=== PATIENT | female | born 1965 | race Caucasian/White ===

== ENCOUNTER 2021-07-15 12:57 | Inpatient (IN) | payer MEDICARE, MEDICAID, SELFPAY ==
[2021-07-15] VITALS (19 sets, daily range): BP systolic 60–194; BP diastolic 27–69; PULSE 66–95; RESP 12–20; TEMP 36.9–37.1; O2SAT 91–97; BMI 32.8
--- NOTE | ~2021-07-15 | CT_ITS ---
EXAMINATION: CT HEAD WITHOUT CONTRAST CLINICAL INFORMATION: Altered mental status COMPARISON: CT head 05/17/2019, 01/08/2019 TECHNIQUE: Contiguous axial imaging was performed from the skull base to vertex without intravenous administration of contrast. This CT examination was performed using dose optimization techniques as appropriate, variously including the following: *Automated exposure control *Adjustment of mA and/or kV according to patient size (this includes techniques or standardized protocols for targeted exams where dose is matched to indication/reason for exam; i.e. extremities or head) *Use of iterative reconstruction technique DLP: 1039 mGy-cm FINDINGS: There is no evidence of acute intracranial hemorrhage or territorial infarction. No abnormal mass effect or midline shift is seen. [place] to white matter differentiation is well preserved. No extra-axial fluid collections are identified. The ventricles are normal in size. There is no abnormal attenuation within the brain parenchyma. The osseous structures and soft tissues are normal. The mastoid air cells and visualized portions of the paranasal sinuses are well aerated. Cerumen is noted in the left external auditory canal. CT/CT head/brain wo con IMPRESSION: No acute intracranial pathology.
--- NOTE | ~2021-07-15 | CT_ITS ---
EXAMINATION: CT abdomen pelvis wo con CLINICAL INFORMATION: Reason for Exam ? prerenal. elevated cr COMPARISON: Multiple prior CTs most recent May 2019 TECHNIQUE: Multidetector volumetric imaging was performed from the superior aspect of the liver through the pubic symphysis , noncontrasted study. Sagittal and coronal reformatted images were obtained on the technologist's workstation. This CT examination was performed using dose optimization techniques as appropriate, variously including the following: *Automated exposure control *Adjustment of mA and/or kV according to patient size (this includes techniques or standardized protocols for targeted exams where dose is matched to indication/reason for exam; i.e. extremities or head) *Use of iterative reconstruction technique DLP: 882 mGy-cm FINDINGS: LOWER THORAX: Included lung bases are clear. HEPATOBILIARY: Evaluation of the liver is limited on noncontrasted study. No gross abnormalities, the liver is homogeneous. GALLBLADDER: Gallbladder is distended, no calcified stones. SPLEEN: Spleen is normal in size. PANCREAS: No focal mass or ductal dilatation. STOMACH AND GASTROINTESTINAL TRACT: Stomach is grossly unremarkable. There is no bowel distention or thickening. Surgical clips adjacent to the cecum probably from prior appendectomy. Appendix not visualized. ADRENALS: No adrenal nodules. KIDNEYS/URETERS: There is a cortical defect likely scar middle pole right kidney probably from prior partial nephrectomy or renal injury. No kidney stone or hydronephrosis. Left kidney is unremarkable. URINARY BLADDER: Ashford catheter in the urinary bladder. Irregular bladder is decompressed unopacified. PELVIC VISCERA: Unremarkable PERITONEUM: No free air or fluid. LYMPH NODES: No lymphadenopathy. VASCULAR:Mild vascular calcifications. No aneurysm. BONES, ABDOMINAL WALL AND SOFT TISSUES: Hardware posterior fusion of the lower lumbar spine in place are intact. CT/CT abdomen pelvis wo con IMPRESSION: *No CT evidence of acute intra-abdominal process to explain patient's symptoms. *Appendix not visualized, surgical clips adjacent to the cecum probably from prior appendectomy. *The urinary bladder is decompressed, Ashford catheter in place. *Hardware posterior fusion of the lumbar spine and partial compression fracture superior endplate L3 chronic stable. *Cortical defect probably a scar middle pole right kidney prior renal injury
--- NOTE | ~2021-07-15 | XR_ITS ---
EXAMINATION: XR CHEST CLINICAL INFORMATION: Fever COMPARISON: Chest x-ray on 07/15/2021 TECHNIQUE: Frontal view of the chest was obtained. FINDINGS: Patchy opacities in the lingula. The cardiomediastinal silhouette is stable. No pleural effusions. No pneumothoraces. XR/XR chest 1V IMPRESSION: Patchy opacities in the lingula may represent pneumonia in appropriate clinical setting.
--- NOTE | ~2021-07-15 | XR_ITS ---
EXAMINATION: XR CHEST CLINICAL INFORMATION: Chest pain COMPARISON: 05/17/2019 TECHNIQUE: Frontal view of the chest was obtained. FINDINGS: Lungs are well-inflated and clear. Trachea is midline in position. No interstitial disease, consolidation or mass. No pleural effusion or pneumothorax. Cardiac silhouette and pulmonary vessels are normal in size. The mediastinum and saige have normal contour. The visualized bones and upper abdomen are unremarkable. XR/XR chest 1V IMPRESSION: No acute cardiopulmonary abnormality.
--- NOTE | ~2021-07-15 | XR_ITS ---
EXAMINATION: XR CHEST CLINICAL INFORMATION: Fluid overload COMPARISON: 07/15/2021 TECHNIQUE: Frontal view of the chest was obtained. FINDINGS: No significant abnormality is noted involving the heart, lungs, mediastinum, bony thorax or soft tissues. XR/XR chest 1V IMPRESSION: Unremarkable examination.
--- NOTE | 2021-07-15 13:30 | ECG_ITS ---
Test Reason : AMS Blood Pressure : / mmHG Vent. Rate : 066 BPM Atrial Rate : 066 BPM P-R Int : 168 ms QRS Dur : 084 ms QT Int : 420 ms P-R-T Axes : 036 014 043 degrees QTc Int : 440 ms Normal sinus rhythm Anterior infarct , age undetermined Abnormal ECG When compared with ECG of 18-MAY-2019 04:09, Anterior infarct is now Present T wave inversion no longer evident in Inferior leads Referred By: Mia Umanzor Electronically Signed By:Jeffrey Harrington
[2021-07-15 13:44] LABS: MANUAL DIFF FLAG NO
[2021-07-15 13:46] LABS: Basophils Absolute Auto 0.1 X10*3/uL (0.0-0.2); Basophils Percent Auto 0.7 % (0-2); Eosinophils Percent Auto 0.3 % (0-4); Hematocrit 38.2 % (37.0-47.0); Hemoglobin 13.3 g/dl (12.0-16.0); Imm Gran Abs Auto 0.06 X10*3/uL (0.00-0.03); Imm Gran Pct Auto 0.5 % (0.0-0.4); Lymphocytes Percent Auto 22.9 % (20-40); Mean Corpuscular HGB Conc 34.8 g/dl (31.0-35.0); Mean Corpuscular Hemoglobin 29.3 pg (27.0-33.0); Mean Corpuscular Volume 84.1 fL (80.0-98.0); Mean Platelet Volume 11.5 fL (9.4-12.3); Monocytes Absolute Auto 0.5 X10*3/uL (0.1-1.2); Monocytes Percent Auto 4.1 % (2-11); Neutrophils Absolute Auto 9.3 x10*3/uL (2.0-8.3); Neutrophils Percent Auto 71.5 % (45-73); Platelet Count 272 X10*3/uL (160-400); Red Blood Count 4.54 X10*6/uL (4.20-5.50); Red Cell Distribution Width 14.6 % (11.0-16.0); White Blood Count 12.9 X10*3/uL (4.8-10.8)
[2021-07-15] MEDS: 0.9 % Sodium Chloride 1,000 ML 999 ML IV ×3 (13:48→17:03)
[2021-07-15 14:06] LABS: Lactic Acid 3.1 mmol/L (0.5-2.0)
[2021-07-15 14:09] LABS: Troponin-I High Sensitivity < 3.5 ng/L (<3.5-17.0)
[2021-07-15 14:13] LABS: Acetaminophen LAB < 1 mcg/mL (<30); Alanine Aminotransferase 13 U/L (0-31); Albumin Level 3.6 g/dL (3.5-5.0); Alkaline Phosphatase 117 U/L (39-117); Anion Gap 20 (12-20); Aspartate Amino Transferase 13 U/L (5-31); Bilirubin Direct 0.2 mg/dL (0.0-0.5); Bilirubin Total 0.3 mg/dL (0.0-1.0); Blood Urea Nitrogen 44 mg/dL (9-16); Calcium 9.5 mg/dL (8.4-10.2); Carbon Dioxide 22 mmol/L (22-29); Chloride 93 mmol/L (96-108); Creatinine Clr Calc Pharmacy 26.6; Estimated Glomerular Filt Rate 19; Glucose Random 341 mg/dL (60-115); Lipase 46 U/L (8-78); Salicylate < 5.0 mg/dL (15-30); Sodium 130 mmol/L (135-145); Total Protein 6.6 g/dL (6.5-8.0)
[2021-07-15 14:22] LABS: Lithium 0.24 mmol/L (0.60-1.20)
[2021-07-15 14:22] LABS: ABG Refer to POC result
[2021-07-15 14:23] LABS: ABG HCO3 18 mmol/L (22-26); ABG pCO2 33 mmHg (32-45); ABG pH 7.34 (7.35-7.45); ABG pO2 76 mmHg (83-108)
[2021-07-15 14:26] LABS: Ethanol < 10 mg/dL
--- NOTE | 2021-07-15 14:26 | PC.NURSE ---
Addendum entered by Emily Heredia 07/15/21 14:43: Paula RN, al rn Original Note: Pt arrives via ambulance responsive to mostly noxious stimuli, face flushed. Hypotensive SB 60s. Dr Umanzor to bedside. Pt coughing some difficulty managing orally suctioned for small amount of phlegm. Two peripheral lines established and fluids started. Pt not answering questions asked, will make eye contact with name called however with further questioning pt will become tearful. NSR on monitor, sat 96% on room air. PERRLA, pupils constricted.
[2021-07-15 14:52] LABS: Influenza A PCR NEGATIVE (Negative); Influenza B PCR NEGATIVE (Negative); Resp Syncy Virus RNA Qual PCR NEGATIVE (Negative); SARS COV2 PCR INHOUSE NEGATIVE (Negative)
[2021-07-15] MEDS: ondansetron HCL 4 MG/2 ML VIAL IVPUSH (15:33)
[2021-07-15] MEDS: cefTRIAXone sodium 1 GM in 0.9 % Sodium Chloride 50 ML IV (15:33)
[2021-07-15 15:35] LABS: Appearance Urine HAZY; Color Urine YELLOW; Glucose Urine UA 100 MG/DL (NEG); Leukocyte Esterase Urine 1+ (NEG); Nitrite Urine POS (NEG); PH 5.5 (5.0-8.0); UACC Culture Trigger YES; Urine Blood 3+ (NEG); Urine Ketones NEG (NEG); Urine Protein NEG (NEG-TRACE)
--- NOTE | 2021-07-15 15:36 | ED_ITS ---
HPI - Altered Mental Status General Chief Complaint: Altered Mental Status Stated Complaint: FOUND SLEEPING & CRYING,REFUSING TO ANSWER QUESTIO Time Seen by Provider: 07/15/21 13:30 History of Present Illness HPI narrative: Patient is a 56-year-old female with a history of bipolar history of polysubstance abuse baseline awake alert able to carry a conversation. History of polysubstance abuse as well. Presented to the ED with sleepiness difficult to arouse. This is different than patient's baseline. She is unable to give detailed history. Unsure as to what exactly transpired. Unsure as to what happened to patient today. Patient was picked up at her residence sent sent to ED for sleepiness refusing to answer questions Related Data Allergies Allergy/AdvReac Type Severity Reaction Status Date / Time morphine [MORPHINE] Allergy Unknown RASH, vomit Unverified 11/26/19 17:43 prednisone Allergy Unknown hives Verified 10/18/16 00:00 Sulfa (Sulfonamide Allergy Unknown UNKNOWN, Unverified 11/26/19 17:43 Antibiotics) hives [SULFA (SULFONAMIDE ANTIBIOTICS)] Review of Systems Review of Systems: Unable to obtain review of systems secondary to patient's condition [facility] Past Medical History Attestation statement: The following information was validated with the patient. Social History Social History Advance Directives: No Physical Exam ED Vital Signs: Vital Signs - 24 hr 07/15/21 13:06 07/15/21 13:49 07/15/21 14:52 Pulse Rate 74 66 70 Respiratory Rate 20 14 14 Blood Pressure 60/30 L 81/27 L 110/62 Pulse Oximetry 96 97 07/15/21 15:26 Pulse Rate 76 Respiratory Rate 14 Blood Pressure 82/49 L Pulse Oximetry 95 BMI result Body Mass Index 32.8 Appearance: Lethargic minimal movement to painful stimuli Eyes: Pupils equal, round and reactive to light. ENT: Pharynx normal. Neck: Normal inspection. Neck supple. No lymph nodes noted. No crepitus CVS: Normal heart rate and rhythm. Pulses normal. Normal S1 and S2 Respiratory: Positive upper airway distress No respiratory distress. Breath sounds normal. No Wheezing. No rales Abdomen: Soft and nontender. No rigidity. No distention. good BS x4 Skin: Skin warm and dry. Normal skin color. Normal skin turgor. Extremities: No lower extremity edema. Neurovascular intact to all extremities. No Lacerations. No Rash Neuro: Very lethargic localizes to pain. Moans. Move all extremities. MDM - Altered Mental Status MDM Narrative Medical decision making narrative: Patient's sugar was over 100 there is no evidence for hypoglycemia. Pupils were equal reactive. Patient localizes the pain. Initially had a low blood pressure. But is lying flat has a lots of upper airway sound. A chest x-ray did not show any focal infiltrate. Patient given IV fluid. Labs were drawn. The electrolytes showed an elevated BUN and creatinine consistent with dehydration. Lactate of 3 more likely from hypoperfusion secondary to dehydration rather than from sepsis. Nevertheless cultures are obtained antibiotic was started 30 cc/kilos IV fluid was started. Patient's chest x-ray did not show any focal infiltrate. CT scan of the head did not show any acute evidence of bleeding. No mass effect. After approximately 2-3 L of fluid patient's mental status started to improve. Blood pressure stabilized. Case discussed with daughter and roommate. Patient does not drink alcohol alcohol level is negative. Her lithium level was 0.24 which is below therapeutic range. Patient's CT scan of the abdomen pelvis is pending as patient had elevated BUN and creatinine consistent with pre renal disease. The CT scans to rule out any postobstructive picture. Case was discussed with the hospitalist team. Will ad patricio patient for further evaluation. Per patient's daughter she is a full code. At this time patient is awake alert. Answering simple questions. Patient's COVID/flu/RSV were negative. She is to be admitted. Her EKG showed a sinus pattern heart rate was 70 [place] [facility] QT within normal limits. There is no acute ST segment elevation. Differential Diagnosis Differential diagnosis: Likely altered mental status Medical Records Attestation: I reviewed the patient's medical records. Lab Data Attestation: I reviewed the patient's lab results. Result diagrams: 07/15/21 13:39 07/15/21 13:39 Labs: Lab Results 07/15/21 07/15/21 07/15/21 Range/Units 13:39 13:39 13:39 WBC 12.9 H (4.8-10.8) X10*3/uL RBC 4.54 (4.20-5.50) X10*6/uL Hgb 13.3 (12.0-16.0) g/dl Hct 38.2 (37.0-47.0) % MCV 84.1 (80.0-98.0) fL MCH 29.3 (27.0-33.0) pg MCHC 34.8 (31.0-35.0) g/dl RDW 14.6 (11.0-16.0) % Plt Count 272 (160-400) X10*3/uL MPV 11.5 (9.4-12.3) fL Immature Gran % (Auto) 0.5 H (0.0-0.4) % Neut % (Auto) 71.5 (45-73) % Lymph % (Auto) 22.9 (20-40) % Centre % (Auto) 4.1 (2-11) % Eos % (Auto) 0.3 (0-4) % Baso % (Auto) 0.7 (0-2) % Lymph # (Auto) 3.0 (1.2-4.9) X10*3/uL Centre # (Auto) 0.5 (0.1-1.2) X10*3/uL Eos # (Auto) 0.0 (0.0-0.4) X10*3/uL Baso # (Auto) 0.1 (0.0-0.2) X10*3/uL Abs Immat Gran (auto) 0.06 H (0.00-0.03) X10*3/uL Absolute Neuts (auto) 9.3 H (2.0-8.3) x10*3/uL Absolute Nucleated RBC 0.000 (0.0-0.012) X10*3/uL Nucleated RBC % (auto) 0.0 (0.0-0.2) /100WBC O2 Saturation % ABG pH at Pt Temp (7.35-7.45) ABG pCO2 at Pt Temp (32-45) mmHg ABG pO2 at Pt Temp (83-108) mmHg ABG HCO3 (22-26) mmol/L ABG Base Excess (Actual) mmol/L Sodium 130 L (135-145) mmol/L Potassium 5.0 (3.3-5.1) mmol/L Chloride 93 L (96-108) mmol/L Carbon Dioxide 22 (22-29) mmol/L Anion Gap 20 (12-20) BUN 44 H (9-16) mg/dL Creatinine 2.57 H (0.5-1.4) mg/dL Estim Creat Clear Calc 26.6 Estimated GFR 19 Random Glucose 341 H (60-115) mg/dL Lactic Acid (0.5-2.0) mmol/L Calcium 9.5 (8.4-10.2) mg/dL Total Bilirubin 0.3 (0.0-1.0) mg/dL Direct Bilirubin 0.2 (0.0-0.5) mg/dL AST 13 (5-31) U/L ALT 13 (0-31) U/L Alkaline Phosphatase 117 (39-117) U/L Ammonia TNP Total Creatine Kinase 1286 H (26-140) U/L Troponin I High Sens (<3.5-17.0) ng/L Total Protein 6.6 (6.5-8.0) g/dL Albumin 3.6 (3.5-5.0) g/dL Lipase 46 (8-78) U/L Salicylates < 5.0 L (15-30) mg/dL Acetaminophen < 1 (<30) mcg/mL [place] (0.60-1.20) mmol/L Ethyl Alcohol mg/dL Influenza Type A (PCR) (Negative) Influenza Type B (PCR) (Negative) RSV RNA Qual (PCR) (Negative) SARS-CoV-2 RNA (RT-PCR) (Negative) 07/15/21 07/15/21 07/15/21 Range/Units 13:39 13:39 13:57 WBC (4.8-10.8) X10*3/uL RBC (4.20-5.50) X10*6/uL Hgb (12.0-16.0) g/dl Hct (37.0-47.0) % MCV (80.0-98.0) fL MCH (27.0-33.0) pg MCHC (31.0-35.0) g/dl RDW (11.0-16.0) % Plt Count (160-400) X10*3/uL MPV (9.4-12.3) fL Immature Gran % (Auto) (0.0-0.4) % Neut % (Auto) (45-73) % Lymph % (Auto) (20-40) % Centre % (Auto) (2-11) % Eos % (Auto) (0-4) % Baso % (Auto) (0-2) % Lymph # (Auto) (1.2-4.9) X10*3/uL Centre # (Auto) (0.1-1.2) X10*3/uL Eos # (Auto) (0.0-0.4) X10*3/uL Baso # (Auto) (0.0-0.2) X10*3/uL Abs Immat Gran (auto) (0.00-0.03) X10*3/uL Absolute Neuts (auto) (2.0-8.3) x10*3/uL Absolute Nucleated RBC (0.0-0.012) X10*3/uL Nucleated RBC % (auto) (0.0-0.2) /100WBC O2 Saturation % ABG pH at Pt Temp (7.35-7.45) ABG pCO2 at Pt Temp (32-45) mmHg ABG pO2 at Pt Temp (83-108) mmHg ABG HCO3 (22-26) mmol/L ABG Base Excess (Actual) mmol/L Sodium (135-145) mmol/L Potassium (3.3-5.1) mmol/L Chloride (96-108) mmol/L Carbon Dioxide (22-29) mmol/L Anion Gap (12-20) BUN (9-16) mg/dL Creatinine (0.5-1.4) mg/dL Estim Creat Clear Calc Estimated GFR Random Glucose (60-115) mg/dL Lactic Acid 3.1 H* (0.5-2.0) mmol/L Calcium (8.4-10.2) mg/dL Total Bilirubin (0.0-1.0) mg/dL Direct Bilirubin (0.0-0.5) mg/dL AST (5-31) U/L ALT (0-31) U/L Alkaline Phosphatase (39-117) U/L Ammonia Total Creatine Kinase (26-140) U/L Troponin I High Sens < 3.5 (<3.5-17.0) ng/L Total Protein (6.5-8.0) g/dL Albumin (3.5-5.0) g/dL Lipase (8-78) U/L Salicylates (15-30) mg/dL Acetaminophen (<30) mcg/mL [place] (0.60-1.20) mmol/L Ethyl Alcohol mg/dL Influenza Type A (PCR) NEGATIVE (Negative) Influenza Type B (PCR) NEGATIVE (Negative) RSV RNA Qual (PCR) NEGATIVE (Negative) SARS-CoV-2 RNA (RT-PCR) NEGATIVE (Negative) 07/15/21 07/15/21 07/15/21 Range/Units 14:08 14:08 14:15 WBC (4.8-10.8) X10*3/uL RBC (4.20-5.50) X10*6/uL Hgb (12.0-16.0) g/dl Hct (37.0-47.0) % MCV (80.0-98.0) fL MCH (27.0-33.0) pg MCHC (31.0-35.0) g/dl RDW (11.0-16.0) % Plt Count (160-400) X10*3/uL MPV (9.4-12.3) fL Immature Gran % (Auto) (0.0-0.4) % Neut % (Auto) (45-73) % Lymph % (Auto) (20-40) % Centre % (Auto) (2-11) % Eos % (Auto) (0-4) % Baso % (Auto) (0-2) % Lymph # (Auto) (1.2-4.9) X10*3/uL Centre # (Auto) (0.1-1.2) X10*3/uL Eos # (Auto) (0.0-0.4) X10*3/uL Baso # (Auto) (0.0-0.2) X10*3/uL Abs Immat Gran (auto) (0.00-0.03) X10*3/uL Absolute Neuts (auto) (2.0-8.3) x10*3/uL Absolute Nucleated RBC (0.0-0.012) X10*3/uL Nucleated RBC % (auto) (0.0-0.2) /100WBC O2 Saturation 93.0 % ABG pH at Pt Temp 7.34 L (7.35-7.45) ABG pCO2 at Pt Temp 33 (32-45) mmHg ABG pO2 at Pt Temp 76 L (83-108) mmHg ABG HCO3 18 L (22-26) mmol/L ABG Base Excess (Actual) -6.0 mmol/L Sodium (135-145) mmol/L Potassium (3.3-5.1) mmol/L Chloride (96-108) mmol/L Carbon Dioxide (22-29) mmol/L Anion Gap (12-20) BUN (9-16) mg/dL Creatinine (0.5-1.4) mg/dL Estim Creat Clear Calc Estimated GFR Random Glucose (60-115) mg/dL Lactic Acid (0.5-2.0) mmol/L Calcium (8.4-10.2) mg/dL Total Bilirubin (0.0-1.0) mg/dL Direct Bilirubin (0.0-0.5) mg/dL AST (5-31) U/L ALT (0-31) U/L Alkaline Phosphatase (39-117) U/L Ammonia Total Creatine Kinase (26-140) U/L Troponin I High Sens (<3.5-17.0) ng/L Total Protein (6.5-8.0) g/dL Albumin (3.5-5.0) g/dL Lipase (8-78) U/L Salicylates (15-30) mg/dL Acetaminophen (<30) mcg/mL [place] 0.24 L (0.60-1.20) mmol/L Ethyl Alcohol < 10 mg/dL Influenza Type A (PCR) (Negative) Influenza Type B (PCR) (Negative) RSV RNA Qual (PCR) (Negative) SARS-CoV-2 RNA (RT-PCR) (Negative) Critical Care Time Critical Care Time Critical Care Time: Yes Total Critical Care Time: 50 Attestation: I have personally provided 50 minutes of critical care time exclusive of time spent on separately billable procedures. Time includes review of lab data, radiology results, discussion with consultants, and monitoring for potential decompensation. Interventions were performed as documented above Discharge Plan Discharge Clinical Impression: Altered mental status Patient Disposition: Admitted As Inpatient
[2021-07-15 15:42] LABS: Reflex Lactate? Lactic Acid Added
[2021-07-15 15:48] LABS: Bacteria Urine 2+ /LPF; Mucus Urine TRACE /LPF; Squamous Epithelial Cell Urine TRACE /LPF; UACC CULT YES
[2021-07-15 16:52] LABS: Amphetamine Screen Urine Not Detected (Not Detect); Barbiturates, Urine Not Detected (Not Detect); Benzodiazepines Screen Urine Not Detected (Not Detect); Cannabinoid Screen Urine Not Detected (Not Detect); Cocaine Screen Urine Not Detected (Not Detect); Fentanyl, urine POSITIVE (Not Detect); Opiate Screen Urine POSITIVE (Not Detect); Phencyclidine Screen Urine Not Detected (Not Detect)
--- NOTE | 2021-07-15 17:18 | PHA.MEDREC ---
MED REC COMPLETE, info taken from contact [facility], and pharmacy claim history. Patient has not recently filled many of her medications such as atorvastatin, metformin, januvia, lisinopril, so unclear how often she was taking these. Pharmacy Consult ? Medication Reconciliation Pharmacy has completed the medication reconciliation.
--- NOTE | 2021-07-15 17:21 | P.HPHOSP_ITS ---
History of Present Illness Date of Service: 07/15/21 <NAHOMY Jean - Last Filed: 07/15/21 17:50> Attending physician on admission: Michaelle Gutierres <NAHOMY Jean - Last Filed: 07/15/21 17:50> Chief Complaint: confusion <NAHOMY Jean - Last Filed: 07/15/21 17:50> This is a 56 year old female who was brought in by EMS for confusion. She was awake but not able to answer any questions, answering Yeni her name when any questions were asked. She was given a dose of Narcan with no significant improvement. Her workup was significant for mild hyponatremia with a sodium of 130, DANY with creatinine of 2.57, elevated lactic acid at 3.1 and mild rhabdomyolysis with a CPK of 1286. Her urinalysis was nitrite positive and she was given a dose of IV ceftriaxone. Her blood pressure was initially in the 60s on arrival and she received 30 cc/kg bolus of fluid and her blood pressure gradually improved and is currently around 100. Her brain CT was unremarkable and she was not noted to have any focal neurological deficits. Her toxic screen was positive for opiates. Given altered mentation the decision was made to admit her for further management. patient was unable to provide any significant history. I called her roommate Jaxson (who is listed as her son in the computer). He states that she was in her usual state of health until this morning, when he found her confused, crying, not making any sense and not answering his questions. He called 911. EMS reports that the house was in disarray. Jaxson states that she has had irregular appetite and had no specific complaints over the past few days. He suspects that she has early onset dementia but this has not been confirmed by any doctors. He denies that she uses alcohol and although she does have a history of drug use he denies that she could have possibly use any drugs. He has been giving her her medication over the past week or so to prevent her from taking extra doses of medication but he did find full pill bottles in her room indicating that she had not been taking medication properly. She states that her baseline she is alert oriented, ambulates independently and is able to care for herself. He does describe what sounds like some sundowning behavior. While she does have a history of seizures he states that she has not been any seizure medication in the past few years her last seizure was over 2 years ago. <NAHOMY Jean - Last Filed: 07/15/21 17:50> Review of Systems Review of Systems: Yes Unobtainable due to mental status <NAHOMY Jean - Last Filed: 07/15/21 17:50> Neurologic: Reports confusion <NAHOMY Jean - Last Filed: 07/15/21 17:50> Psychiatric: Psychiatric: Reports confusion <NAHOMY Jean - Last Filed: 07/15/21 17:50> [facility] Medical History: Medical History (Updated 07/15/21 @ 17:33 by NAHOMY Jean) Asthma Bipolar disorder Chronic pain Diabetes Hypertension IBS (irritable bowel syndrome) Peripheral neuropathy Polysubstance abuse Seizure <NAHOMY Jean - Last Filed: 07/15/21 17:50> Functional capacity: independent ambulation <NAHOMY Jean - Last Filed: 07/15/21 17:50> Pertinent family history: no family history of seizures per previous notes; pt unable to provide any family history due to mental status <NAHOMY Jean - Last Filed: 07/15/21 17:50> Surgical History: Surgical History History of appendectomy <NAHOMY Jean - Last Filed: 07/15/21 17:50> Social History: Social History (Updated 07/15/21 @ 17:31 by NAHOMY Jean) Alcohol intake: never Patient Tobacco Use Status: Tobacco use Unknown Advance Directives: No <NAHOMY Jean - Last Filed: 07/15/21 17:50> Meds Allergies/Adverse reactions: Allergies Allergy/AdvReac Type Severity Reaction Status Date / Time morphine [MORPHINE] Allergy Unknown RASH, vomit Unverified 11/26/19 17:43 prednisone Allergy Unknown hives Verified 10/18/16 00:00 Sulfa (Sulfonamide Allergy Unknown UNKNOWN, Unverified 11/26/19 17:43 Antibiotics) hives [SULFA (SULFONAMIDE ANTIBIOTICS)] <NAHOMY Jean - Last Filed: 07/15/21 17:50> Active Medications: Current Medications Sodium Chloride (Ns) 1,000 mls @ 999 mls/hr IV .Q1H1M SARMAD Stop: 07/15/21 18:00 Last Admin: 07/15/21 17:03 Dose: 999 mls/hr Documented by: Sodium Chloride (Ns) 1,000 mls @ 999 mls/hr IV .Q1H1M SARMAD Stop: 07/15/21 18:00 Last Admin: 07/15/21 17:02 Dose: 999 mls/hr Documented by: Pharmacy Consult (Consult Rx Perform Med Rec) 1 each MISCELLANE ONCE PRN PRN Reason: Consult order <NAHOMY Jean - Last Filed: 07/15/21 17:50> Home medications: Home Medications Medication Instructions Recorded Confirmed Last Taken Type atorvastatin 20 mg tablet 20 mg PO BEDTIME 07/15/21 07/15/21 Unknown History clonidine HCl 0.2 mg tablet 0.2 mg PO TID PRN 07/15/21 07/15/21 Unknown History cyanocobalamin (vitamin B-12) 1,000 mcg PO DAILY 07/15/21 07/15/21 Unknown History 1,000 mcg tablet lisinopril 30 mg tablet 30 mg PO DAILY 07/15/21 07/15/21 Unknown History lithium carbonate 150 mg capsule 150 mg PO DAILY 07/15/21 07/15/21 Unknown History lorazepam 0.5 mg tablet 0.5 mg PO DAILY PRN 07/15/21 07/15/21 Unknown History lurasidone 20 mg tablet (Latuda) 20 mg PO DAILY 07/15/21 07/15/21 Unknown History metformin 1,000 mg tablet 1,000 mg PO BIDWMEAL 07/15/21 07/15/21 Unknown History pregabalin 150 mg capsule 150 mg PO BID 07/15/21 07/15/21 Unknown History quetiapine 200 mg tablet (Seroquel) 200 mg PO BEDTIME 07/15/21 07/15/21 Unknown History sitagliptin 100 mg tablet (Januvia) 100 mg PO DAILY 07/15/21 07/15/21 Unknown History <NAHOMY Jean - Last Filed: 07/15/21 17:50> Physical Exam Vital Signs and Narrative: Vital Signs: Last Vital Signs Pulse 75 07/15/21 17:05 Resp 13 07/15/21 17:05 BP 100/44 L 07/15/21 17:05 Pulse Ox 96 07/15/21 15:50 BMI result Body Mass Index 32.8 <NAHOMY Jean - Last Filed: 07/15/21 17:50> Const: Other: patient is abusable to verbal stimuli but begins crying when she wakes up she answers yeni to each question asked <NAHOMY Jean - Last Filed: 07/15/21 17:50> General: confusion <NAHOMY Jean - Last Filed: 07/15/21 17:50> Nutritional Appearance: overweight <NAHOMY Jean - Last Filed: 07/15/21 17:50> Orientation/consciousness: confusion <NAHOMY Jean - Last Filed: 07/15/21 17:50> Eyes: Pupils: Equal, round and reactive pupils present <NAHOMY Jean - Last Filed: 07/15/21 17:50> Resp: Effort & Inspection: normal respiratory effort and able to speak in com plete sentences <NAHOMY Jean - Last Filed: 07/15/21 17:50> Auscultation: clear to auscultation bilaterally <NAHOMY Jean - Last Filed: 07/15/21 17:50> Cardio: Rate: regular rate <NAHOMY Jean - Last Filed: 07/15/21 17:50> Heart sounds: S1 normal heart sound present and S2 normal heart sound present <NAHOMY Jean - Last Filed: 07/15/21 17:50> GI: Other: abdomen is soft, non-distended, appears non-tender; +BS <NAHOMY Jean - Last Filed: 07/15/21 17:50> Neuro: Other: following some commands but unable to fully assess moving all extremities; face symmetrical, tongue seems midline <NAHOMY Jean - Last Filed: 07/15/21 17:50> General: moves all extremities and confusion <NAHOMY Jean - Last Filed: 07/15/21 17:50> Cranial nerves: Yes Equal, round and reactive pupils present <NAHOMY Jean - Last Filed: 07/15/21 17:50> Extrem: Other: no leg edema <NAHOMY Jean - Last Filed: 07/15/21 17:50> Results Labs CBC and Chem 7: : 07/15/21 13:39 07/15/21 13:39 <NAHOMY Jean - Last Filed: 07/15/21 17:50> Labs: Laboratory Results - last 24 hr 07/15/21 07/15/21 07/15/21 13:39 13:39 13:39 MCV 84.1 MCH 29.3 MCHC 34.8 RDW 14.6 Plt Count 272 MPV 11.5 Immature Gran % (Auto) 0.5 H Neut % (Auto) 71.5 Lymph % (Auto) 22.9 [place] % (Auto) 4.1 Eos % (Auto) 0.3 Baso % (Auto) 0.7 Lymph # (Auto) 3.0 [place] # (Auto) 0.5 Eos # (Auto) 0.0 Baso # (Auto) 0.1 Abs Immat Gran (auto) 0.06 H Absolute Neuts (auto) 9.3 H Absolute Nucleated RBC 0.000 Nucleated RBC % (auto) 0.0 O2 Saturation ABG pH at Pt Temp ABG pCO2 at Pt Temp ABG pO2 at Pt Temp ABG HCO3 ABG Base Excess (Actual) Anion Gap 20 Estim Creat Clear Calc 26.6 Estimated GFR 19 Random Glucose 341 H Lactic Acid Calcium 9.5 Total Bilirubin 0.3 Direct Bilirubin 0.2 AST 13 ALT 13 Alkaline Phosphatase 117 Ammonia TNP Total Creatine Kinase 1286 H Troponin I High Sens Total Protein 6.6 Albumin 3.6 Lipase 46 Urine Color Urine Appearance Urine pH Ur Specific [place] Urine Protein Urine Glucose (UA) Urine Ketones Urine Blood Urine Nitrite Ur Leukocyte Esterase Urine RBC Urine WBC Ur Squamous Epith Cells Urine Bacteria Urine Mucus Salicylates < 5.0 L Urine Opiates Screen Urine Fentanyl Screen Acetaminophen < 1 Ur Barbiturates Screen Ur Phencyclidine Scrn Ur Amphetamines Screen U Benzodiazepines Scrn [place] Urine Cocaine Screen U Marijuana (THC) Screen Ethyl Alcohol Influenza Type A (PCR) Influenza Type B (PCR) RSV RNA Qual (PCR) SARS-CoV-2 RNA (RT-PCR) 07/15/21 07/15/21 07/15/21 13:39 13:39 13:57 MCV MCH MCHC RDW Plt Count MPV Immature Gran % (Auto) Neut % (Auto) Lymph % (Auto) [place] % (Auto) Eos % (Auto) Baso % (Auto) Lymph # (Auto) [place] # (Auto) Eos # (Auto) Baso # (Auto) Abs Immat Gran (auto) Absolute Neuts (auto) Absolute Nucleated RBC Nucleated RBC % (auto) O2 Saturation ABG pH at Pt Temp ABG pCO2 at Pt Temp ABG pO2 at Pt Temp ABG HCO3 ABG Base Excess (Actual) Anion Gap Estim Creat Clear Calc Estimated GFR Random Glucose Lactic Acid 3.1 H* Calcium Total Bilirubin Direct Bilirubin AST ALT Alkaline Phosphatase Ammonia Total Creatine Kinase Troponin I High Sens < 3.5 Total Protein Albumin Lipase Urine Color Urine Appearance Urine pH Ur Specific [place] Urine Protein Urine Glucose (UA) Urine Ketones Urine Blood Urine Nitrite Ur Leukocyte Esterase Urine RBC Urine WBC Ur Squamous Epith Cells Urine Bacteria Urine Mucus Salicylates Urine Opiates Screen Urine Fentanyl Screen Acetaminophen Ur Barbiturates Screen Ur Phencyclidine Scrn Ur Amphetamines Screen U Benzodiazepines Scrn [place] Urine Cocaine Screen U Marijuana (THC) Screen Ethyl Alcohol Influenza Type A (PCR) NEGATIVE Influenza Type B (PCR) NEGATIVE RSV RNA Qual (PCR) NEGATIVE SARS-CoV-2 RNA (RT-PCR) NEGATIVE 07/15/21 07/15/21 07/15/21 14:08 14:08 14:15 MCV MCH MCHC RDW Plt Count MPV Immature Gran % (Auto) Neut % (Auto) Lymph % (Auto) [place] % (Auto) Eos % (Auto) Baso % (Auto) Lymph # (Auto) [place] # (Auto) Eos # (Auto) Baso # (Auto) Abs Immat Gran (auto) Absolute Neuts (auto) Absolute Nucleated RBC Nucleated RBC % (auto) O2 Saturation 93.0 ABG pH at Pt Temp 7.34 L ABG pCO2 at Pt Temp 33 ABG pO2 at Pt Temp 76 L ABG HCO3 18 L ABG Base Excess (Actual) -6.0 Anion Gap Estim Creat Clear Calc Estimated GFR Random Glucose Lactic Acid Calcium Total Bilirubin Direct Bilirubin AST ALT Alkaline Phosphatase Ammonia Total Creatine Kinase Troponin I High Sens Total Protein Albumin Lipase Urine Color Urine Appearance Urine pH Ur Specific [place] Urine Protein Urine Glucose (UA) Urine Ketones Urine Blood Urine Nitrite Ur Leukocyte Esterase Urine RBC Urine WBC Ur Squamous Epith Cells Urine Bacteria Urine Mucus Salicylates Urine Opiates Screen Urine Fentanyl Screen Acetaminophen Ur Barbiturates Screen Ur Phencyclidine Scrn Ur Amphetamines Screen U Benzodiazepines Scrn [place] 0.24 L Urine Cocaine Screen U Marijuana (THC) Screen Ethyl Alcohol < 10 Influenza Type A (PCR) Influenza Type B (PCR) RSV RNA Qual (PCR) SARS-CoV-2 RNA (RT-PCR) 07/15/21 07/15/21 15:22 15:22 MCV MCH MCHC RDW Plt Count MPV Immature Gran % (Auto) Neut % (Auto) Lymph % (Auto) [place] % (Auto) Eos % (Auto) Baso % (Auto) Lymph # (Auto) [place] # (Auto) Eos # (Auto) Baso # (Auto) Abs Immat Gran (auto) Absolute Neuts (auto) Absolute Nucleated RBC Nucleated RBC % (auto) O2 Saturation ABG pH at Pt Temp ABG pCO2 at Pt Temp ABG pO2 at Pt Temp ABG HCO3 ABG Base Excess (Actual) Anion Gap Estim Creat Clear Calc Estimated GFR Random Glucose Lactic Acid Calcium Total Bilirubin Direct Bilirubin AST ALT Alkaline Phosphatase Ammonia Total Creatine Kinase Troponin I High Sens Total Protein Albumin Lipase Urine Color YELLOW Urine Appearance HAZY Urine pH 5.5 Ur Specific [place] 1.010 Urine Protein NEG Urine Glucose (UA) 100 H Urine Ketones NEG Urine Blood 3+ H Urine Nitrite POS H Ur Leukocyte Esterase 1+ H Urine RBC 10-14 H Urine WBC 5-9 H Ur Squamous Epith Cells TRACE Urine Bacteria 2+ Urine Mucus TRACE Salicylates Urine Opiates Screen POSITIVE H Urine Fentanyl Screen POSITIVE H Acetaminophen Ur Barbiturates Screen Not Detected Ur Phencyclidine Scrn Not Detected Ur Amphetamines Screen Not Detected U Benzodiazepines Scrn Not Detected [place] Urine Cocaine Screen Not Detected U Marijuana (THC) Screen Not Detected Ethyl Alcohol Influenza Type A (PCR) Influenza Type B (PCR) RSV RNA Qual (PCR) SARS-CoV-2 RNA (RT-PCR) <NAHOMY Jean - Last Filed: 07/15/21 17:50> Imaging Radiologist's Impressions: Impressions Chest X-Ray 07/15/21 13:53 IMPRESSION: No acute cardiopulmonary abnormality. Head CT 07/15/21 14:52 IMPRESSION: No acute intracranial pathology. <NAHOMY Jean - Last Filed: 07/15/21 17:50> Assessment and Plan (1) Altered mental status: Status: Acute <NAHOMY Jean - Last Filed: 07/15/21 17:50> (2) DANY (acute kidney injury): Status: Acute <NAHOMY Jean - Last Filed: 07/15/21 17:50> (3) UTI (urinary tract infection): Status: Acute <NAHOMY Jean - Last Filed: 07/15/21 17:50> Plan This is a 56-year-old female with diabetes, bipolar disorder, hypertension, hyperlipidemia, peripheral neuropathy, asthma, chronic pain syndrome, history of seizure disorder, polysubstance abuse, multiple previous admissions for altered mental status brought into the emergency department for the same Toxic Metabolic encephalopathy Likely multifactorial due to possible UTI, DANY, opiate use. possibly seizure given history of seizure disorder Brain CT negative, no focal neurological deficits appreciated although difficult to complete full neurologic exam neurology consult neuro checks DANY creatinine 2.57, baseline .8 ? secondary to hypovolemia abdominal CT pending to eval for obstruction hold nephrotoxins follow renal function IVF Hypotension likely r/t hypovolemia/DANY BP 60s systolic on arrival received 30cc/kg bolus +additional fluid BP now around 100 monitor BP closely lactic acidosis secondary to hypovolemia/hypotension/metformin use does not meet SIRS criteria/no sepsis UTI no sepsis unable to assess for urinary symptoms will treat with ceftriaxone follow urine culture, blood cultures Rhabdomyolysis CPK 1286 IV fluid Trend CPK opiate use [facility] pat review, pt does not have current opiate perscription tox screen positive to opiates although roommate denies that she has used drugs h/o seizure disorder roommate reports not crrently on seizure meds and no active seizures in over 2 years seizure precautions neuro consult pending Hyponatremia sodium 130 Likely secondary to hypokalemia Follow BMP DM with neuropathy SSI, POCs hold metformin, januvia peripheral neuropathy hold pregabalin bipolar disorder lithium level subtherapeutic continue lithium (follow level given DANY), latuda hold seroquel, ativan due to sedation, consider restarting as mental status improves *roommate found full bottles of some medications in her room that haven't been filled recently. It is difficult to determine which medications she is supposed to be taking and which medications she was actually taking DVT ppx - heparin Code status - presumed full code, no MOLST in system No HCP on file; contacts - Roommate Jaxson [phone] number in system, daughter Liseth Cruz [phone] [place] Attending - dr. gutierres Given multitude of acute medical issues patient will require 2 midnight stay in the hospital for further management and workup encephalopathy, DANY, hypotension, rhabdomyolysis, hyponatremia <NAHOMY Jean - Last Filed: 07/15/21 17:50> Quality Stroke Does the patient have a stroke diagnosis?: No <NAHOMY Jean - Last Filed: 07/15/21 17:50> VTE Prior VTE?: No <NAHOMY Jean - Last Filed: 07/15/21 17:50> VTE Risk Level:: Medical - moderate - high <NAHOMY Jean - Last Filed: 07/15/21 17:50> VTE Device Contraindication: N/A - Device Ordered <NAHOMY Jean - Last Filed: 07/15/21 17:5 0> VTE Drug Contraindication: N/A - Med Ordered <NAHOMY Jean - Last Filed: 07/15/21 17:50>
--- NOTE | 2021-07-15 17:35 | PC.NURSE ---
LAMIN MAYERSSRANULFO TOPETE PHONE NUMBER OF [phone]
--- NOTE | 2021-07-15 17:54 | PC.NURSE ---
PT ALERT, ORIENTED TO SELF ONLY, PT SHAKES HER HEAD NO WHEN ASKED IF SHE IS HAVING PAIN. PT CRYING ON AND OFF. PT'S B/P SOFT, FLUIDS GIVEN DOCUMENTED, B/P MONITORING CONTINUES.
[2021-07-15] MEDS: LORazepam 2 MG/ML VIAL 1 MG IVPUSH ×2 (18:40→21:41)
[2021-07-15] MEDS: Heparin Sodium,Porcine 5,000 UNIT/ML VIAL 5000 UNIT SUBCUT (18:43)
[2021-07-15 19:22] LABS: ~Lactic Acid-LAB USE ONLY 2.6 mmol/L (0.5-2.0)
[2021-07-15 19:28] LABS: Anion Gap 17 (12-20); Blood Urea Nitrogen 36 mg/dL (9-16); Carbon Dioxide 17 mmol/L (22-29); Chloride 108 mmol/L (96-108); Creatinine Clr Calc Pharmacy 38.1; Estimated Glomerular Filt Rate 29; Glucose Random 209 mg/dL (60-115); Potassium 4.9 mmol/L (3.3-5.1); Sodium 137 mmol/L (135-145)
[2021-07-15] MEDS: Lactated Ringers 1,000 ML 125 ML IVCONT (20:17)
--- NOTE | 2021-07-15 20:25 | PC.NURSE ---
Pt BP 67/33 after multiple NS bolus, Dr Carmona made aware, Levophed to be infused, see MAR.
[2021-07-15 20:32] LABS: Glucose, Whole Blood 193 mg/dL (60-115)
--- NOTE | 2021-07-15 20:48 | PM.CCN ---
Critical Care Event Note Summary Date of Service: 07/15/21 Code activated: No Narrative: This case had a high probability of a clinically significant, sudden, or life threatening deterioration of this patient's condition which required my full and direct attention, intervention and personal management. Critical Care Time (minutes): 60 Comment: This a 56 y/o female past medical history of Schizophrenia, Peripheral neuropathy, diabetes Mellitus,? polysubstance abuse who presented from home brought by EMS due to AMS.? she was given a dose of Narcan enroute to hospital with no response.? She was noted to be mildly hyponatremic sodium of 130, DANY with creatinine of 2.57, elevated lactic acid at 3.1. Her urinalysis was nitrite positive and she was given a dose of IV ceftriaxone. Urine postive for fentanyl/ opiates. She also was noticed to have? rhabdomyolysis with a CPK of 1286, she was given a total of 5liters while in ED.? ?Initially blood pressures was 60/30? but responded to fluid resuscitation.? But later patient noted to be? more altered,? became hypotensive to SBP of 60s again. ??ICU was consulted for initiation of pressors.? When I assessed the patients, she had? diffuse crackles in all lung [place],? obtunded,? only responding to painful stimuli. BP 70/40. Patient likely overloaded. Will obtain abgs, start Levo and transfer to ICU? ?Plan:? ABGs/Chem/CPK, Lactic CT of the abdomen ? Critical Care Time Critical Care Time (minutes): 60
[2021-07-15 21:03] LABS: ABG Refer to POC result
[2021-07-15 21:03] LABS: Reflex Lactate? 2 Y
[2021-07-15 21:04] LABS: ABG HCO3 17 mmol/L (22-26); ABG pCO2 30 mmHg (32-45); ABG pH 7.35 (7.35-7.45); ABG pO2 78 mmHg (83-108)
[2021-07-15] MEDS: Sodium Bicarbonate 8.4% 50 MEQ/50 ML SYRINGE IVPUSH (21:45)
[2021-07-15 21:56] LABS: Glucose, Whole Blood 193 mg/dL (60-115)
[2021-07-15 22:30] LABS: ~Lactic Acid-LAB USE ONLY 2.2 mmol/L (0.5-2.0)
[2021-07-15 22:32] LABS: Anion Gap 16 (12-20); Blood Urea Nitrogen 33 mg/dL (9-16); Calcium 7.8 mg/dL (8.4-10.2); Carbon Dioxide 21 mmol/L (22-29); Chloride 108 mmol/L (96-108); Creatinine Clr Calc Pharmacy 41.1; Estimated Glomerular Filt Rate 32; Glucose Random 205 mg/dL (60-115); Magnesium 1.3 mg/dL (1.6-2.6); Phosphorus 3.6 mg/dL (2.7-4.5); Potassium 5.3 mmol/L (3.3-5.1); Sodium 140 mmol/L (135-145)
[2021-07-15 22:34] LABS: B Type Natriuretic Peptide 40 pg/mL (<100)
--- NOTE | 2021-07-15 22:46 | PM.EVENT ---
Event Note Date of Service: 07/17/21 Event Note: patient seen and examined with APC earlier in the evening between 5 and 6 pm labs imaging ekg reviewed patient does know her name but unable to give much hx. we called her roommate -seems like decrease appetite recently, confused ,also not sure if she was taking her meds blood pressure was in 60's upon arrival and ,also narcan her ua positive for opoids /fentanyl also possible uti,elevated cpk safia elevated lactic acid cxr and ct head , lft's seems fine physyical exam: please see h&P. assessament and plan coordianted in H&p note,agree with the plan hypotension probbale related to dehydration/decreased po intake,also was on htn medication received fluids (please see h&p) -blood pressure improving in 100's range continue fluids uti -recived iv antibiotics not sepsis elevated lactic acid: sec to hyotension/metformin safia-possible sec to hypotension/lisinopril possible hx of seizer dis : not on any medsas per room mate,her previous dc summary from 2019-seems like was on keppra. toxic metabolic encephalopathy-multifactorial safia,uti,possible opoids use , will coontinue iv hydration, antbiotics ,neurology eval
[2021-07-15] MEDS: Magnesium Sulfate/H2O 2 GM/50 ML PIGGYBACK IV (22:54)
[2021-07-15] MEDS: Haloperidol Lactate 5 MG/ML VIAL IVPUSH (23:35)
[2021-07-15] MEDS: 0.9 % Sodium Chloride Flush 3 ML SYRINGE IVFLUSH (23:35)
[2021-07-15] MEDS: Calcium Gluconate/NaCl,Iso-Osm 1 GM/50 ML PLAST..BAG IV (23:55)
[2021-07-16] VITALS (13 sets, daily range): BP systolic 98–189; BP diastolic 32–109; PULSE 87–114; RESP 12–24; TEMP 36.9–37.7; O2SAT 91–100; BMI 33.1
[2021-07-16] MEDS: Sodium Bicarbonate 8.4% 50 MEQ/50 ML SYRINGE IVPUSH ×3 (01:56→10:49)
[2021-07-16] MEDS: LORazepam 2 MG/ML VIAL 1 MG IVPUSH ×3 (03:21→22:46)
[2021-07-16 05:22] LABS: MANUAL DIFF FLAG NO
[2021-07-16 05:41] LABS: Anion Gap 19 (12-20); Blood Urea Nitrogen 26 mg/dL (9-16); Calcium 8.9 mg/dL (8.4-10.2); Carbon Dioxide 22 mmol/L (22-29); Chloride 107 mmol/L (96-108); Creatinine Clr Calc Pharmacy 50.7; Estimated Glomerular Filt Rate 40; Glucose Random 276 mg/dL (60-115); Magnesium 1.8 mg/dL (1.6-2.6); Potassium 4.8 mmol/L (3.3-5.1); Sodium 143 mmol/L (135-145)
[2021-07-16 05:46] LABS: B Type Natriuretic Peptide 79 pg/mL (<100)
[2021-07-16 06:03] LABS: Albumin Level 3.7 g/dL (3.5-5.0)
[2021-07-16 06:08] LABS: Basophils Absolute Auto 0.1 X10*3/uL (0.0-0.2); Basophils Percent Auto 0.4 % (0-2); Eosinophils Percent Auto 0.1 % (0-4); Hematocrit 38.9 % (37.0-47.0); Hemoglobin 13.1 g/dl (12.0-16.0); Imm Gran Abs Auto 0.08 X10*3/uL (0.00-0.03); Imm Gran Pct Auto 0.4 % (0.0-0.4); Lymphocytes Absolute Auto 3.2 X10*3/uL (1.2-4.9); Mean Corpuscular HGB Conc 33.7 g/dl (31.0-35.0); Mean Corpuscular Hemoglobin 28.5 pg (27.0-33.0); Mean Corpuscular Volume 84.7 fL (80.0-98.0); Mean Platelet Volume 11.6 fL (9.4-12.3); Monocytes Absolute Auto 0.7 X10*3/uL (0.1-1.2); Monocytes Percent Auto 3.8 % (2-11); Neutrophils Percent Auto 78.3 % (45-73); Platelet Count 319 X10*3/uL (160-400); Red Blood Count 4.59 X10*6/uL (4.20-5.50); Red Cell Distribution Width 14.6 % (11.0-16.0); White Blood Count 19.1 X10*3/uL (4.8-10.8)
[2021-07-16] MEDS: Heparin Sodium,Porcine 5,000 UNIT/ML VIAL 5000 UNIT SUBCUT ×2 (06:12→17:00)
[2021-07-16 07:38] LABS: Glucose, Whole Blood 314 mg/dL (60-115)
[2021-07-16] MEDS: Insulin Lispro 100 UNIT/ML 3 ML VIAL SUBCUT ×4 (07:50→20:21)
[2021-07-16] MEDS: 0.9 % Sodium Chloride Flush 3 ML SYRINGE IVFLUSH ×3 (07:55→21:37)
--- NOTE | 2021-07-16 09:51 | P.PNCC_ITS ---
Subjective Subjective Date of Service: 07/16/21 Interval History: 56-year-old lady with underlying history of diabetes mellitus, hypertension, polysubstance abuse, bipolar, seizures admitted on 07/15/2021 with confusion on ER evaluation patient was noted to have acute kidney injury with hyponatremia, mild degree of rhabdomyolysis, positive urinalysis, and a low lithium level. Patient was started on IV fluid support. patient was initially admitted to general medical [facility]. However, she required significant sedation secondary to alternating periods of agitation and lethargy. With sedation her systolic blood pressure dropped to 70s and she was Transferred to intensive care unit for close monitoring. No events overnight. Renal function improved. Continues with alternating episodes of lethargy and agitation. Critical Care Time (minutes): 0 Physical Exam Vital Signs: Vital Signs: Last Vital Signs Temp 99.3 F 07/16/21 08:00 Pulse 107 H 07/16/21 07:00 Resp 20 07/16/21 08:00 BP 108/60 07/16/21 07:00 Pulse Ox 92 07/16/21 07:00 BMI result Body Mass Index 33.1 Const: General: no acute distress and lethargic ( Or agitated) Nutritional Appearance: obese Orientation/consciousness: lethargic ( Or agitated) Eyes: Sclerae: sclerae normal EOM: EOMs intact bilaterally Neck: Neck: Yes no lymphadenopathy, Yes trachea midline and Yes supple Resp: Effort & Inspection: normal respiratory effort and no respiratory distress Auscultation: clear to auscultation bilaterally Cardio: Rate: regular rate Rhythm: regular rhythm Heart sounds: no gallops, no murmurs and no rubs GI: Palpation (GI): Soft to palpation and Other GI palpation findings present ( Nontender) Auscultation: normal bowel sounds Extrem: General: Yes no pedal edema, No clubbing and No cyanosis Objective Data Labs CBC & Chem 7: 07/16/21 05:09 07/16/21 05:09 Labs: Laboratory Results - last 24 hr 07/15/21 07/15/21 07/15/21 13:39 13:39 13:39 WBC 12.9 H RBC 4.54 Hgb 13.3 Hct 38.2 MCV 84.1 MCH 29.3 MCHC 34.8 RDW 14.6 Plt Count 272 MPV 11.5 Immature Gran % (Auto) 0.5 H Neut % (Auto) 71.5 Lymph % (Auto) 22.9 [place] % (Auto) 4.1 Eos % (Auto) 0.3 Baso % (Auto) 0.7 Lymph # (Auto) 3.0 [place] # (Auto) 0.5 Eos # (Auto) 0.0 Baso # (Auto) 0.1 Abs Immat Gran (auto) 0.06 H Absolute Neuts (auto) 9.3 H Absolute Nucleated RBC 0.000 Nucleated RBC % (auto) 0.0 O2 Saturation ABG pH at Pt Temp ABG pCO2 at Pt Temp ABG pO2 at Pt Temp ABG HCO3 ABG Base Excess (Actual) Sodium 130 L Potassium 5.0 Chloride 93 L Carbon Dioxide 22 Anion Gap 20 BUN 44 H Creatinine 2.57 H Estim Creat Clear Calc 26.6 Estimated GFR 19 POC Glucose Random Glucose 341 H Lactic Acid Lactic Acid F/U @ 2Hr Lactic Acid F/U @ 4Hr Calcium 9.5 Phosphorus Magnesium Total Bilirubin 0.3 Direct Bilirubin 0.2 AST 13 ALT 13 Alkaline Phosphatase 117 Ammonia TNP Total Creatine Kinase 1286 H Troponin I High Sens B-Natriuretic Peptide Total Protein 6.6 Albumin 3.6 Lipase 46 Urine Color Urine Appearance Urine pH Ur Specific [place] Urine Protein Urine Glucose (UA) Urine Ketones Urine Blood Urine Nitrite Ur Leukocyte Esterase Urine RBC Urine WBC Ur Squamous Epith Cells Urine Bacteria Urine Mucus Salicylates < 5.0 L Urine Opiates Screen Urine Fentanyl Screen Acetaminophen < 1 Ur Barbiturates Screen Ur Phencyclidine Scrn Ur Amphetamines Screen U Benzodiazepines Scrn [place] Urine Cocaine Screen U Marijuana (THC) Screen Ethyl Alcohol Influenza Type A (PCR) Influenza Type B (PCR) RSV RNA Qual (PCR) SARS-CoV-2 RNA (RT-PCR) 07/15/21 07/15/21 07/15/21 13:39 13:39 13:57 WBC RBC Hgb Hct MCV MCH MCHC RDW Plt Count MPV Immature Gran % (Auto) Neut % (Auto) Lymph % (Auto) [place] % (Auto) Eos % (Auto) Baso % (Auto) Lymph # (Auto) [place] # (Auto) Eos # (Auto) Baso # (Auto) Abs Immat Gran (auto) Absolute Neuts (auto) Absolute Nucleated RBC Nucleated RBC % (auto) O2 Saturation ABG pH at Pt Temp ABG pCO2 at Pt Temp ABG pO2 at Pt Temp ABG HCO3 ABG Base Excess (Actual) Sodium Potassium Chloride Carbon Dioxide Anion Gap BUN Creatinine Estim Creat Clear Calc Estimated GFR POC Glucose Random Glucose Lactic Acid 3.1 H* Lactic Acid F/U @ 2Hr Lactic Acid F/U @ 4Hr Calcium Phosphorus Magnesium Total Bilirubin Direct Bilirubin AST ALT Alkaline Phosphatase Ammonia Total Creatine Kinase Troponin I High Sens < 3.5 B-Natriuretic Peptide Total Protein Albumin Lipase Urine Color Urine Appearance Urine pH Ur Specific [place] Urine Protein Urine Glucose (UA) Urine Ketones Urine Blood Urine Nitrite Ur Leukocyte Esterase Urine RBC Urine WBC Ur Squamous Epith Cells Urine Bacteria Urine Mucus Salicylates Urine Opiates Screen Urine Fentanyl Screen Acetaminophen Ur Barbiturates Screen Ur Phencyclidine Scrn Ur Amphetamines Screen U Benzodiazepines Scrn [place] Urine Cocaine Screen U Marijuana (THC) Screen Ethyl Alcohol Influenza Type A (PCR) NEGATIVE Influenza Type B (PCR) NEGATIVE RSV RNA Qual (PCR) NEGATIVE SARS-CoV-2 RNA (RT-PCR) NEGATIVE 07/15/21 07/15/21 07/15/21 14:08 14:08 14:15 WBC RBC Hgb Hct MCV MCH MCHC RDW Plt Count MPV Immature Gran % (Auto) Neut % (Auto) Lymph % (Auto) [place] % (Auto) Eos % (Auto) Baso % (Auto) Lymph # (Auto) [place] # (Auto) Eos # (Auto) Baso # (Auto) Abs Immat Gran (auto) Absolute Neuts (auto) Absolute Nucleated RBC Nucleated RBC % (auto) O2 Saturation 93.0 ABG pH at Pt Temp 7.34 L ABG pCO2 at Pt Temp 33 ABG pO2 at Pt Temp 76 L ABG HCO3 18 L ABG Base Excess (Actual) -6.0 Sodium Potassium Chloride Carbon Dioxide Anion Gap BUN Creatinine Estim Creat Clear Calc Estimated GFR POC Glucose Random Glucose Lactic Acid Lactic Acid F/U @ 2Hr Lactic Acid F/U @ 4Hr Calcium Phosphorus Magnesium Total Bilirubin Direct Bilirubin AST ALT Alkaline Phosphatase Ammonia Total Creatine Kinase Troponin I High Sens B-Natriuretic Peptide Total Protein Albumin Lipase Urine Color Urine Appearance Urine pH Ur Specific [place] Urine Protein Urine Glucose (UA) Urine Ketones Urine Blood Urine Nitrite Ur Leukocyte Esterase Urine RBC Urine WBC Ur Squamous Epith Cells Urine Bacteria Urine Mucus Salicylates Urine Opiates Screen Urine Fentanyl Screen Acetaminophen Ur Barbiturates Screen Ur Phencyclidine Scrn Ur Amphetamines Screen U Benzodiazepines Scrn [place] 0.24 L Urine Cocaine Screen U Marijuana (THC) Screen Ethyl Alcohol < 10 Influenza Type A (PCR) Influenza Type B (PCR) RSV RNA Qual (PCR) SARS-CoV-2 RNA (RT-PCR) 07/15/21 07/15/21 07/15/21 15:22 15:22 18:58 WBC RBC Hgb Hct MCV MCH MCHC RDW Plt Count MPV Immature Gran % (Auto) Neut % (Auto) Lymph % (Auto) [place] % (Auto) Eos % (Auto) Baso % (Auto) Lymph # (Auto) [place] # (Auto) Eos # (Auto) Baso # (Auto) Abs Immat Gran (auto) Absolute Neuts (auto) Absolute Nucleated RBC Nucleated RBC % (auto) O2 Saturation ABG pH at Pt Temp ABG pCO2 at Pt Temp ABG pO2 at Pt Temp ABG HCO3 ABG Base Excess (Actual) Sodium Potassium Chloride Carbon Dioxide Anion Gap BUN Creatinine Estim Creat Clear Calc Estimated GFR POC Glucose Random Glucose Lactic Acid Lactic Acid F/U @ 2Hr 2.6 H* Lactic Acid F/U @ 4Hr Calcium Phosphorus Magnesium Total Bilirubin Direct Bilirubin AST ALT Alkaline Phosphatase Ammonia Total Creatine Kinase Troponin I High Sens B-Natriuretic Peptide Total Protein Albumin Lipase Urine Color YELLOW Urine Appearance HAZY Urine pH 5.5 Ur Specific [place] 1.010 Urine Protein NEG Urine Glucose (UA) 100 H Urine Ketones NEG Urine Blood 3+ H Urine Nitrite POS H Ur Leukocyte Esterase 1+ H Urine RBC 10-14 H Urine WBC 5-9 H Ur Squamous Epith Cells TRACE Urine Bacteria 2+ Urine Mucus TRACE Salicylates Urine Opiates Screen POSITIVE H Urine Fentanyl Screen POSITIVE H Acetaminophen Ur Barbiturates Screen Not Detected Ur Phencyclidine Scrn Not Detected Ur Amphetamines Screen Not Detected U Benzodiazepines Scrn Not Detected [place] Urine Cocaine Screen Not Detected U Marijuana (THC) Screen Not Detected Ethyl Alcohol Influenza Type A (PCR) Influenza Type B (PCR) RSV RNA Qual (PCR) SARS-CoV-2 RNA (RT-PCR) 07/15/21 07/15/21 07/15/21 18:58 20:29 20:54 WBC RBC Hgb Hct MCV MCH MCHC RDW Plt Count MPV Immature Gran % (Auto) Neut % (Auto) Lymph % (Auto) [place] % (Auto) Eos % (Auto) Baso % (Auto) Lymph # (Auto) [place] # (Auto) Eos # (Auto) Baso # (Auto) Abs Immat Gran (auto) Absolute Neuts (auto) Absolute Nucleated RBC Nucleated RBC % (auto) O2 Saturation 94.0 ABG pH at Pt Temp 7.35 ABG pCO2 at Pt Temp 30 L ABG pO2 at Pt Temp 78 L ABG HCO3 17 L ABG Base Excess (Actual) -7.0 Sodium 137 Potassium 4.9 Chloride 108 Carbon Dioxide 17 L Anion Gap 17 BUN 36 H Creatinine 1.80 H Estim Creat Clear Calc 38.1 Estimated GFR 29 POC Glucose 193 H Random Glucose 209 H Lactic Acid Lactic Acid F/U @ 2Hr Lactic Acid F/U @ 4Hr Calcium 8.0 L D Phosphorus Magnesium Total Bilirubin Direct Bilirubin AST ALT Alkaline Phosphatase Ammonia Total Creatine Kinase Troponin I High Sens B-Natriuretic Peptide Total Protein Albumin Lipase Urine Color Urine Appearance Urine pH Ur Specific [place] Urine Protein Urine Glucose (UA) Urine Ketones Urine Blood Urine Nitrite Ur Leukocyte Esterase Urine RBC Urine WBC Ur Squamous Epith Cells Urine Bacteria Urine Mucus Salicylates Urine Opiates Screen Urine Fentanyl Screen Acetaminophen Ur Barbiturates Screen Ur Phencyclidine Scrn Ur Amphetamines Screen U Benzodiazepines Scrn [place] Urine Cocaine Screen U Marijuana (THC) Screen Ethyl Alcohol Influenza Type A (PCR) Influenza Type B (PCR) RSV RNA Qual (PCR) SARS-CoV-2 RNA (RT-PCR) 07/15/21 07/15/21 07/15/21 21:52 22:04 22:05 WBC RBC Hgb Hct MCV MCH MCHC RDW Plt Count MPV Immature Gran % (Auto) Neut % (Auto) Lymph % (Auto) [place] % (Auto) Eos % (Auto) Baso % (Auto) Lymph # (Auto) [place] # (Auto) Eos # (Auto) Baso # (Auto) Abs Immat Gran (auto) Absolute Neuts (auto) Absolute Nucleated RBC Nucleated RBC % (auto) O2 Saturation ABG pH at Pt Temp ABG pCO2 at Pt Temp ABG pO2 at Pt Temp ABG HCO3 ABG Base Excess (Actual) Sodium 140 Potassium 5.3 H Chloride 108 Carbon Dioxide 21 L Anion Gap 16 BUN 33 H Creatinine 1.67 H Estim Creat Clear Calc 41.1 Estimated GFR 32 POC Glucose 193 H Random Glucose 205 H Lactic Acid Lactic Acid F/U @ 2Hr Lactic Acid F/U @ 4Hr 2.2 H* Calcium 7.8 L Phosphorus 3.6 Magnesium 1.3 L* Total Bilirubin Direct Bilirubin AST ALT Alkaline Phosphatase Ammonia Total Creatine Kinase 1435 H Troponin I High Sens B-Natriuretic Peptide Total Protein Albumin Lipase Urine Color Urine Appearance Urine pH Ur Specific [place] Urine Protein Urine Glucose (UA) Urine Ketones Urine Blood Urine Nitrite Ur Leukocyte Esterase Urine RBC Urine WBC Ur Squamous Epith Cells Urine Bacteria Urine Mucus Salicylates Urine Opiates Screen Urine Fentanyl Screen Acetaminophen Ur Barbiturates Screen Ur Phencyclidine Scrn Ur Amphetamines Screen U Benzodiazepines Scrn [place] Urine Cocaine Screen U Marijuana (THC) Screen Ethyl Alcohol Influenza Type A (PCR) Influenza Type B (PCR) RSV RNA Qual (PCR) SARS-CoV-2 RNA (RT-PCR) 07/15/21 07/16/21 07/16/21 22:05 05:09 05:09 WBC 19.1 H RBC 4.59 Hgb 13.1 Hct 38.9 MCV 84.7 MCH 28.5 MCHC 33.7 RDW 14.6 Plt Count 319 MPV 11.6 Immature Gran % (Auto) 0.4 Neut % (Auto) 78.3 H Lymph % (Auto) 17.0 L [place] % (Auto) 3.8 Eos % (Auto) 0.1 Baso % (Auto) 0.4 Lymph # (Auto) 3.2 [place] # (Auto) 0.7 Eos # (Auto) 0.0 Baso # (Auto) 0.1 Abs Immat Gran (auto) 0.08 H Absolute Neuts (auto) 15.0 H Absolute Nucleated RBC 0.000 Nucleated RBC % (auto) 0.0 O2 Saturation ABG pH at Pt Temp ABG pCO2 at Pt Temp ABG pO2 at Pt Temp ABG HCO3 ABG Base Excess (Actual) Sodium 143 Potassium 4.8 Chloride 107 Carbon Dioxide 22 Anion Gap 19 BUN 26 H Creatinine 1.35 Estim Creat Clear Calc 50.7 Estimated GFR 40 POC Glucose Random Glucose 276 H Lactic Acid Lactic Acid F/U @ 2Hr Lactic Acid F/U @ 4Hr Calcium 8.9 D Phosphorus 3.0 Magnesium 1.8 Total Bilirubin Direct Bilirubin AST ALT Alkaline Phosphatase Ammonia Total Creatine Kinase 1147 H Troponin I High Sens B-Natriuretic Peptide 40 Total Protein Albumin 3.7 Lipase Urine Color Urine Appearance Urine pH Ur Specific [place] Urine Protein Urine Glucose (UA) Urine Ketones Urine Blood Urine Nitrite Ur Leukocyte Esterase Urine RBC Urine WBC Ur Squamous Epith Cells Urine Bacteria Urine Mucus Salicylates Urine Opiates Screen Urine Fentanyl Screen Acetaminophen Ur Barbit[place]ates Screen Ur Phencyclidine Scrn Ur Amphetamines Screen U Benzodiazepines Scrn [place] Urine Cocaine Screen U Marijuana (THC) Screen Ethyl Alcohol Influenza Type A (PCR) Influenza Type B (PCR) RSV RNA Qual (PCR) SARS-CoV-2 RNA (RT-PCR) 07/16/21 07/16/21 05:10 07:34 WBC RBC Hgb Hct MCV MCH MCHC RDW Plt Count MPV Immature Gran % (Auto) Neut % (Auto) Lymph % (Auto) [place] % (Auto) Eos % (Auto) Baso % (Auto) Lymph # (Auto) [place] # (Auto) Eos # (Auto) Baso # (Auto) Abs Immat Gran (auto) Absolute Neuts (auto) Absolute Nucleated RBC Nucleated RBC % (auto) O2 Saturation ABG pH at Pt Temp ABG pCO2 at Pt Temp ABG pO2 at Pt Temp ABG HCO3 ABG Base Excess (Actual) Sodium Potassium Chloride Carbon Dioxide Anion Gap BUN Creatinine Estim Creat Clear Calc Estimated GFR POC Glucose 314 H Random Glucose Lactic Acid Lactic Acid F/U @ 2Hr Lactic Acid F/U @ 4Hr Calcium Phosphorus Magnesium Total Bilirubin Direct Bilirubin AST ALT Alkaline Phosphatase Ammonia Total Creatine Kinase Troponin I High Sens B-Natriuretic Peptide 79 Total Protein Albumin Lipase Urine Color Urine Appearance Urine pH Ur Specific [place] Urine Protein Urine Glucose (UA) Urine Ketones Urine Blood Urine Nitrite Ur Leukocyte Esterase Urine RBC Urine WBC Ur Squamous Epith Cells Urine Bacteria Urine Mucus Salicylates Urine Opiates Screen Urine Fentanyl Screen Acetaminophen Ur Barbit[place]ates Screen Ur Phencyclidine Scrn Ur Amphetamines Screen U Benzodiazepines Scrn [place] Urine Cocaine Screen U Marijuana (THC) Screen Ethyl Alcohol Influenza Type A (PCR) Influenza Type B (PCR) RSV RNA Qual (PCR) SARS-CoV-2 RNA (RT-PCR) Microbiology Microbiology Results: Microbiology 07/15/21 13:39 Blood - Venous Blood Culture - Preliminary Prelim: GPC Gram Stain only Progress Note: A&P Assessment and plan (1) DANY (acute kidney injury): Status: Acute (2) UTI (urinary tract infection): Status: Acute (3) Rhabdomyolysis: Status: Acute (4) Polysubstance abuse: Status: Acute (5) Diabetes: Status: Acute (6) Bipolar disorder: Status: Acute (7) Altered mental status: Status: Acute Plan Assessment: 56-year-old lady with underlying bipolar disorder and substance abuse admitted with confusion Plan: Neuro: waxing and waning mental status with periods of agitation and lethargy. CT head with no acute findings. lithium level low. Restarted on lithium. Started on Lamictal. Cardiac: No acute issues. Pulmonary: No acute issues. Renal: Acute kidney injury, likely secondary to poor oral intake, improved with IV fluid resuscitation. Non oliguric. Rhabdomyolysis is improving. Continue to monitor renal indices and urine output. Endo: No acute issues. Underlying history of diabetes. GI: No acute issues. ID: 1/2 blood cultures with Gram-positive cocci, likely a contaminant. Positive UA. Continue ceftriaxone. Episode of hypotension appears to be related to administration of sedatives with no evidence of sepsis. Heme/Onc: No acute issues. Psych: Underlying bipolar disorder, appears to be uncontrolled. Likely secon jimbo to poor compliance with baseline psychiatric regimen. Restarted on lithium and started on Lamictal. Will likely require psychiatric evaluation after medical stabilization. Miscellaneous: No acute issues. Prophylaxis: Heparin Diet: diabetic Quality Stroke Does the patient have a stroke diagnosis?: No VTE Prior VTE?: No VTE Risk Level:: Medical - moderate - high VTE Device Contraindication: N/A - Device Ordered VTE Drug Contraindication: N/A - Med Ordered
--- NOTE | 2021-07-16 09:56 | PC.NURSE ---
pt crying and rolling side to side in bed, unable to redirect. Attempts made to comfort pt/ask why she was crying, pt does not respond to any questions. pt rips off leads/bp cuff.
--- NOTE | 2021-07-16 11:36 | PM.EVENT ---
Event Note Date of Service: 07/16/21 Event Note: I personally evaluated the patient, confusing, screaming, thrashing in bed, not directable. Getting Psych consut and may need 1:1 observation. Transfer of care discussed with Dr. Berger
[2021-07-16 12:00] LABS: Glucose, Whole Blood 245 mg/dL (60-115)
[2021-07-16] MEDS: LORazepam 2 MG/ML VIAL 0.5 MG IVPUSH (15:50)
[2021-07-16] MEDS: Lithium Carbonate 300 MG TABLET 150 MG PO (15:51)
[2021-07-16] MEDS: lamoTRIgine 25 MG TABLET 50 MG PO ×2 (15:51→21:37)
[2021-07-16] MEDS: Lurasidone HCl 20 MG TABLET PO (15:51)
--- NOTE | 2021-07-16 15:58 | MHC.CM.PN ---
Pt in ICU IMM 07/16/21 to HCP original left at bedside for him. He verbalized understanding of IMM. Female 56 Bipolar non compliant with meds. Substance abuse in hx, tox screen +fentanyl + opiates. Information for this assessment was gathered by speaking with SO/HCP, on file. VAX x2 Pfizer. HCP states that she has been noncompliant with her medications. She will not bath or perform other ADLS when she is not taking her medication. She does not use an AD. DP M-5 for med adjustment and clinical stabilization. CM will address any changes needed to the discharge plan.
[2021-07-16] MEDS: hydrOXYzine HCL 50 MG/ML VIAL 25 MG IM (16:31)
--- NOTE | 2021-07-16 16:38 | PM.EVENT ---
Event Note Date of Service: 07/16/21 Event Note: patient continues to be extremitly agitated despite multiple doses of atiivan, she is at risk for self harm, puling lines, monitors. Will try Haldol and Vistaril while awaiting Psych eval and recommendation.
[2021-07-16] MEDS: Haloperidol Lactate 5 MG/ML VIAL 2 MG IM (16:43)
[2021-07-16 17:17] LABS: Glucose, Whole Blood 290 mg/dL (60-115)
--- NOTE | 2021-07-16 17:25 | PC.NURSE ---
LIZ AMY ([phone]) CALLED TO RECEIVE UPDATE ABOUT HER MOTHER. LIZ WAS NOT LISTED A CONTACT AND PATIENT TOO CONFUSED AND ALTERED TO CLARIFY INFORMATION. LIZ WAS TOLD BY THIS RN THAT VIC (WHO WAS LISTED HER ONLY CONTACT AND LISTED SON) WAS JUST UPDATED AND TO PLEASE CALL HIM. LIZ STATED THAT VIC IS NOT HER SON, BUT HER ROOMMATE FOR THE PAST 5 YEARS. SHE CONTINUES TO STATE HE CAN RECEIVE UPDATES, BUT SHOULD NOT BE ALLOWED TO MAKE ANY FORM OF MEDICAL DECISIONS. I AM [place] AND UNABLE TO VISIT, BUT WOULD LIKE TO KNOW WHAT IS GOING ON WITH MY MOTHER SINCE VIC IS UNRELIABLE WITH INFORMATION. BRIEF UPDATE GIVEN BY THIS RN AND TOLD LIZ THAT WHEN YOUR MOM IS ABLE TO GIVE US CONSENT TO SPEAK WITH YOU WE CAN PROVIDE MORE INFORMATION. LIZ AGREED TO THIS PLAN. [employer] SENT TO CASE MANAGEMENT - WAITING FOR REPLY. LIZ'S PHONE NUMBER ADDED TO CONTACT LIST AND SON REMOVED FROM VIC'S INFORMATION. WILL PASS ON TO ONCOMING RN TO ADDRESS THIS IN ROUNDS TOMORROW TO SEE IF THERE IS A HCP ON FILE FROM A PREVIOUS ADMISSION IF PATIENT IS UNABLE TO CLARIFY INFORMATION BEFORE ROUNDS.
[2021-07-16] MEDS: HaloperidoL 1 MG TABLET PO (18:07)
[2021-07-16] MEDS: cefTRIAXone sodium 1 GM in 0.9 % Sodium Chloride 50 ML IV (18:49)
[2021-07-16 20:06] LABS: Glucose, Whole Blood 188 mg/dL (60-115)
[2021-07-17] MEDS: Haloperidol Lactate 5 MG/ML VIAL 2.5 MG IM (01:38)
[2021-07-17 04:42] VITALS: PULSE 20
[2021-07-17] MEDS: Heparin Sodium,Porcine 5,000 UNIT/ML VIAL 5000 UNIT SUBCUT ×2 (04:52→16:48)
[2021-07-17] MEDS: LORazepam 2 MG/ML VIAL 1 MG IVPUSH ×3 (04:53→21:32)
[2021-07-17 06:00] VITALS: BMI 32.6
[2021-07-17 06:43] LABS: MANUAL DIFF FLAG NO
[2021-07-17 06:51] LABS: Basophils Absolute Auto 0.1 X10*3/uL (0.0-0.2); Basophils Percent Auto 0.5 % (0-2); Eosinophils Percent Auto 0.1 % (0-4); Hematocrit 37.5 % (37.0-47.0); Hemoglobin 12.5 g/dl (12.0-16.0); Imm Gran Pct Auto 1.4 % (0.0-0.4); Lymphocytes Absolute Auto 2.2 X10*3/uL (1.2-4.9); Lymphocytes Percent Auto 16.1 % (20-40); Mean Corpuscular HGB Conc 33.3 g/dl (31.0-35.0); Mean Corpuscular Hemoglobin 28.7 pg (27.0-33.0); Mean Platelet Volume 11.1 fL (9.4-12.3); Monocytes Absolute Auto 0.7 X10*3/uL (0.1-1.2); Neutrophils Absolute Auto 10.7 x10*3/uL (2.0-8.3); Neutrophils Percent Auto 76.9 % (45-73); Platelet Count 289 X10*3/uL (160-400); Red Blood Count 4.36 X10*6/uL (4.20-5.50); Red Cell Distribution Width 14.4 % (11.0-16.0); White Blood Count 13.9 X10*3/uL (4.8-10.8)
[2021-07-17 07:05] LABS: Glucose, Whole Blood 282 mg/dL (60-115)
[2021-07-17 07:16] LABS: Alanine Aminotransferase 15 U/L (0-31); Albumin Level 3.8 g/dL (3.5-5.0); Alkaline Phosphatase 99 U/L (39-117); Anion Gap 20 (12-20); Aspartate Amino Transferase 19 U/L (5-31); Bilirubin Total 0.6 mg/dL (0.0-1.0); Blood Urea Nitrogen 15 mg/dL (9-16); Calcium 9.4 mg/dL (8.4-10.2); Carbon Dioxide 25 mmol/L (22-29); Chloride 104 mmol/L (96-108); Creatinine Clr Calc Pharmacy 63.3; Estimated Glomerular Filt Rate 52; Glucose Random 318 mg/dL (60-115); Magnesium 1.3 mg/dL (1.6-2.6); Phosphorus 2.1 mg/dL (2.7-4.5); Potassium 3.8 mmol/L (3.3-5.1); Sodium 145 mmol/L (135-145); Total Protein 6.8 g/dL (6.5-8.0)
[2021-07-17 08:00] VITALS: BP 212/118; PULSE 95; RESP 20; TEMP 36.1; O2SAT 95
[2021-07-17] MEDS: 0.9 % Sodium Chloride Flush 3 ML SYRINGE IVFLUSH ×3 (08:01→20:39)
[2021-07-17] MEDS: Magnesium Sulfate/H2O 2 GM/50 ML PIGGYBACK IV (08:01)
[2021-07-17] MEDS: lamoTRIgine 25 MG TABLET 50 MG PO ×2 (08:01→20:38)
[2021-07-17] MEDS: Insulin Lispro 100 UNIT/ML 3 ML VIAL SUBCUT ×4 (08:01→20:39)
[2021-07-17] MEDS: Lithium Carbonate 300 MG TABLET 150 MG PO (08:02)
[2021-07-17] MEDS: Lurasidone HCl 20 MG TABLET PO (08:02)
[2021-07-17] MEDS: lisinopriL 10 MG TABLET PO (09:41)
[2021-07-17 10:26] LABS: Glucose, Whole Blood 323 mg/dL (60-115)
[2021-07-17 10:57] LABS: Glucose, Whole Blood 263 mg/dL (60-115)
[2021-07-17 12:00] VITALS: BP 175/84; PULSE 78; RESP 20; TEMP 36.9; O2SAT 96
--- NOTE | 2021-07-17 12:44 | MHC.CM.PN ---
per rounds pt needs to be seen by psych prior to completing disposition plan
[2021-07-17] MEDS: cefTRIAXone sodium 1 GM in 0.9 % Sodium Chloride 50 ML IV (13:53)
--- NOTE | 2021-07-17 14:03 | P.PNIM_ITS ---
Subjective Subjective Date of Service: 07/17/21 <Mary Fried NP - Last Filed: 07/17/21 17:26> 07/18/21 <Paul Kebede MD - Last Filed: 07/18/21 08:33> Review of Systems Follow up encephalopathy agitation overnight <Mary Fried NP - Last Filed: 07/17/21 17:26> Physical Exam Vital Signs: Vital Signs: Last Vital Signs Temp 98.5 F 07/17/21 12:00 Pulse 78 07/17/21 12:00 Resp 20 07/17/21 12:00 BP 175/84 H 07/17/21 12:00 Pulse Ox 96 07/17/21 12:00 BMI result Body Mass Index 32.6 <Mary Fried NP - Last Filed: 07/17/21 17:26> Appearing in no acute distress lung sounds are clear to auscultation heart regular rate rhythm, clear S1, S2 positive bowel sounds, abdomen is soft, nontender neuro patient is alert x3, no focal deficits <Mary Fried NP - Last Filed: 07/17/21 17:26> Objective Data Active Medications Acetaminophen (Acetaminophen Supp 650 Mg Supp.Rect) 650 mg [place] Q6H PRN PRN Reason: Pain, Mild (Pain Scale 1-3) Acetaminophen (Acetaminophen 325 Mg Tablet) 650 mg PO Q6H PRN PRN Reason: Pain, Mild (Pain Scale 1-3) Dextrose (Dextrose 50 % 25 Gm/50 Ml Syringe) 25 gm IVPUSH Q15M PRN; Protocol PRN Reason: per Hypoglycemia Standing Ord. Docusate Sodium (Docusate Sodium 100 Mg Capsule) 100 mg PO DAILY PRN PRN Reason: Constipation Glucose (Glucose Gel 15 Gm Gel..Gram.) 15 gm PO Q15M PRN; Protocol PRN Reason: per Hypoglycemia Standing Ord. Heparin Sodium (Porcine) (Heparin Sodium,Porcine 5,000 Unit/Ml Vial) 5,000 unit SUBCUT Q12H [facility] Last Admin: 07/17/21 04:52 Dose: 5,000 unit Documented by: DEEJAY Ceftriaxone Sodium 1 gm/ (Sodium Chloride) 50 mls @ 100 mls/hr IV Q24H [facility] Last Admin: 07/17/21 13:53 Dose: 100 mls/hr Documented by: INOCENTE Insulin Human Lispro (Insulin Lispro 100 Unit/Ml 3 Ml Vial) 0 unit SUBCUT QIDACHS [facility]; Protocol Last Admin: 07/17/21 12:07 Dose: 6 unit Documented by: INOCENTE Lamotrigine (Lamotrigine 25 Mg Tablet) 50 mg PO BID [facility] Last Admin: 07/17/21 08:01 Dose: 50 mg Documented by: INOCENTE [place] Carbonate ([place] Carbonate 300 Mg Tablet) 150 mg PO DAILY [facility] Last Admin: 07/17/21 08:02 Dose: 150 mg Documented by: INOCENTE Lorazepam (Lorazepam 2 Mg/Ml Vial) 1 mg IVPUSH Q6H PRN PRN Reason: Anxiety Last Admin: 07/17/21 13:02 Dose: 1 mg Documented by: INOCENTE Lurasidone HCl (Lurasidone Hcl 20 Mg Tablet) 20 mg PO DAILY [facility] Last Admin: 07/17/21 08:02 Dose: 20 mg Documented by: INOCENTE Ondansetron HCl (Ondansetron Hcl 4 Mg/2 Ml Vial) 4 mg IVPUSH Q8H PRN PRN Reason: Nausea and Vomiting Pharmacy Consult (Consult Rx Perform Med Rec) 1 each MISCELLANE ONCE PRN PRN Reason: Consult order Sodium Chloride (0.9 % Sodium Chloride Flush 3 Ml Syringe) 3 ml IVFLUSH QSHIFT [facility] Last Admin: 07/17/21 08:01 Dose: 3 ml Documented by: INOCENTE <Mary Fried NP - Last Filed: 07/17/21 17:26> Labs CBC & Chem 7: : 07/17/21 05:58 07/18/21 07:26 <Mary Fried NP - Last Filed: 07/17/21 17:26> Labs: Laboratory Results - last 24 hr 07/15/21 07/16/21 07/16/21 13:07 16:52 20:03 MCV MCH MCHC RDW Plt Count MPV Immature Gran % (Auto) Neut % (Auto) Lymph % (Auto) [place] % (Auto) Eos % (Auto) Baso % (Auto) Lymph # (Auto) [place] # (Auto) Eos # (Auto) Baso # (Auto) Abs Immat Gran (auto) Absolute Neuts (auto) Absolute Nucleated RBC Nucleated RBC % (auto) Anion Gap Estim Creat Clear Calc Estimated GFR POC Glucose 323 H 290 H 188 H Random Glucose Calcium Phosphorus Magnesium Total Bilirubin AST ALT Alkaline Phosphatase Total Creatine Kinase Total Protein Albumin 07/17/21 07/17/21 07/17/21 05:58 05:58 07:01 MCV 86.0 MCH 28.7 MCHC 33.3 RDW 14.4 Plt Count 289 MPV 11.1 Immature Gran % (Auto) 1.4 H Neut % (Auto) 76.9 H Lymph % (Auto) 16.1 L [place] % (Auto) 5.0 Eos % (Auto) 0.1 Baso % (Auto) 0.5 Lymph # (Auto) 2.2 [place] # (Auto) 0.7 Eos # (Auto) 0.0 Baso # (Auto) 0.1 Abs Immat Gran (auto) 0.20 H Absolute Neuts (auto) 10.7 H Absolute Nucleated RBC 0.000 Nucleated RBC % (auto) 0.0 Anion Gap 20 Estim Creat Clear Calc 63.3 Estimated GFR 52 POC Glucose 282 H Random Glucose 318 H Calcium 9.4 Phosphorus 2.1 L Magnesium 1.3 L* Total Bilirubin 0.6 AST 19 D ALT 15 Alkaline Phosphatase 99 Total Creatine Kinase 540 H D Total Protein 6.8 Albumin 3.8 07/17/21 10:54 MCV MCH MCHC RDW Plt Count MPV Immature Gran % (Auto) Neut % (Auto) Lymph % (Auto) [place] % (Auto) Eos % (Auto) Baso % (Auto) Lymph # (Auto) [place] # (Auto) Eos # (Auto) Baso # (Auto) Abs Immat Gran (auto) Absolute Neuts (auto) Absolute Nucleated RBC Nucleated RBC % (auto) Anion Gap Estim Creat Clear Calc Estimated GFR POC Glucose 263 H Random Glucose Calcium Phosphorus Magnesium Total Bilirubin AST ALT Alkaline Phosphatase Total Creatine Kinase Total Protein Albumin <Mary Fried NP - Last Filed: 07/17/21 17:26> Microbiology Microbiology Results: Microbiology 07/15/21 20:55 Urine Culture - Final Urine clean catch - Clean Catch Midstream Escherichia coli 07/15/21 13:39 Blood Culture - Preliminary Blood - Venous Coag negative Staphylococcus 07/15/21 13:39 Blood Culture - Preliminary Blood - Venous No growth after 24 hours. <Mary Fried NP - Last Filed: 07/17/21 17:26> Assessment and Plan (1) Altered mental status: Status: Acute <Mary Fried NP - Last Filed: 07/17/21 17:26> Plan 56 year ld women tx from ICU due to hypotension. Hypotension likey secondary to hypovolemia Treated in the ICU/ED with pressors BP recovered and is now on the high side Lisinopril restarted at lower dose Toxic Metabolic encephalopathy, acute Likely multifactorial due to possible UTI, DANY, opiate use. possibly seizure given history of seizure disorder Brain CT negative, no focal neurological deficits appreciated although difficult to complete full neurologic exam neurology consult pending neuro checks DANY. Likely secondary to hypoperfusion, hypovolemia trending down follow renal function IVF stopped lactic acidosis secondary to hypovolemia/hypotension/metformin use does not meet SIRS criteria/no sepsis Ecoli UTI no sepsis unable to assess for urinary symptoms will treat with ceftriaxone Rhabdomyolysis CPK 1286 IV fluid Trend CPK opiate use mas pat review, pt does not have current opiate prescription tox screen positive to opiates although roommate denies that she has used drugs h/o seizure disorder roommate reports not currently on seizure meds and no active seizures in over 2 years seizure precautions neuro consult pending Hyponatremia. Resolved Likely secondary to hypokalemia Follow BMP DM with neuropathy SSI, POCs hold metformin, januvia peripheral neuropathy hold pregabalin bipolar disorder lithium level subtherapeutic continue lithium (follow level given DANY), latuda hold seroquel, ativan due to sedation, consider restarting as mental status improves *roommate found full bottles of some medications in her room that haven't been filled recently. It is difficult to determine which medications she is supposed to be taking and which medications she was actually taking DVT ppx - heparin Code status - presumed full code, no MOLST in system No HCP on file; contacts - Roommate Jaxson [phone] number in system, daughter Liseth Cruz [phone] [place] Attending -Dr. Kebede Given multitude of acute medical issues patient will require 2 midnight stay in the hospital for further management and workup encephalopathy, DANY, hypotension, rhabdomyolysis, hyponatremia? <Mary Fried NP - Last Filed: 07/17/21 17:26> Quality Stroke Does the patient have a stroke diagnosis?: No <Mary Fried NP - Last Filed: 07/17/21 17:26> VTE Prior VTE?: No <Mary Fried NP - Last Filed: 07/17/21 17:26> VTE Risk Level:: Medical - moderate - high <Mary Fried NP - Last Filed: 07/17/21 17:26> VTE Device Contraindication: N/A - Device Ordered <Mary Fried NP - Last Filed: 07/17/21 17:26> VTE Drug Contraindication: N/A - Med Ordered <Mary Fried NP - Last Filed: 07/17/21 17:26>
[2021-07-17 15:48] VITALS: BP 204/84; PULSE 96; RESP 20; TEMP 37.4; O2SAT 93
[2021-07-17 16:17] LABS: Glucose, Whole Blood 299 mg/dL (60-115)
[2021-07-17] MEDS: Acetaminophen 325 MG TABLET 650 MG PO (16:47)
[2021-07-17] MEDS: amLODIPine Besylate 5 MG TABLET PO (16:47)
[2021-07-17] MEDS: Labetalol HCL 100 MG/20 ML VIAL 10 MG IVPUSH (16:47)
--- NOTE | 2021-07-17 17:29 | PM.PSYCN ---
History of Present Illness Date of Service: 07/17/2021 Chief Complaint: encephalopathy, DANY Reason for Consult: Disposition Requesting physician: Chrissie Simmons Discussed with referring provider: Yes Sources of Information: patient interviewed, chart reviewed and crisis/core team assessment reviewed HPI Narrative: Pt is a 56 y.o. female who was brought in on 07/15/21 by EMS for confusion. In the ED, pt was responding to questions with ?Kaylyn,? not making sense and not able to answer questions She was given a dose of Narcan with no significant improvement. Her workup was significant for mild hyponatremia with a sodium of 130, DANY with creatinine of 2.57, elevated lactic acid at 3.1, and mild rhabdomyolysis with a CPK of 1286. Her urinalysis was nitrite positive and she was given a dose of IV ceftriaxone. Her blood pressure was initially in the 60s on arrival and she received 30 cc/kg bolus of fluid and her blood pressure gradually improved and is currently around 100. Her brain CT was unremarkable and she was not noted to have any focal neurological deficits. Her toxic screen was positive for opiates. Given altered mentation the decision was made to admit her for further management of toxic metabolic encepthalopathy.? Pt?s roommate reported concern for early onset dementia but this has not been confirmed by any doctors. Her roommate had been administering pt?s meds x 1 week due to noticing she had not been taking them properly. He also reported pt snorts heroine and may have had an OD, also buys percocet on the street. Sx were likely related to withdrawal, as they seemed to resolve after admin of oxycodone. Addiction team was consulted, pt declined suboxone. Li level 0.24 on 07/15/21. Seroquel and ativan held due to sedation. Latuda and lithium continued.? Per hospitalist, pt has been more awake, ambulating, wanting to leave, and agitated.? I evaluated the pt this evening and upon interview she reports ?I dont want to stay.? Pt likely was overusing ativan, as she reports she ran out of it. Otherwise, she says she likes her medications, was taking seroquel 200 mg at bedtime and clonidine PRN at home. Pt says she doesnt want med changes. Denies SI/SIB/HI. Mood is good.? I spoke with pt?s roommate, Jaxson, who is also the HCP. He reports pt has OP psych services. He states pt?s mental status changed on 07/14/21, ?she was good up until saturday.? He says he notices she ?gets a lot of anxiety when the sun starts going down.? He says he thought pt had been abstinent from opiates x 3 weeks, however it appears she used prior to admission. [facility] Medical History (Updated 08/01/21 @ 21:26 by Eli Johns NP) Asthma Bipolar disorder Chronic pain Diabetes Hypertension IBS (irritable bowel syndrome) Peripheral neuropathy Polysubstance abuse Seizure Surgical History History of appendectomy Diagnostics Vital Signs (24Hr): Vital Signs - 24 hr 07/16/21 20:54 07/16/21 23:51 07/17/21 04:42 Temperature 98.5 F Pulse Rate 98 98 20 L Respiratory Rate 19 20 Blood Pressure 161/85 H Pulse Oximetry 91 L 96 07/17/21 08:00 07/17/21 12:00 07/17/21 15:48 Temperature 97.0 F 98.5 F 99.4 F Pulse Rate 95 78 96 Respiratory Rate 20 20 20 Blood Pressure 212/118 H 175/84 H 204/84 H Pulse Oximetry 95 96 93 BMI result Body Mass Index 32.6 Labs Results: 07/17/21 05:58 07/18/21 07:26 Labs: Laboratory Results - last 48 hr 07/15/21 07/15/21 07/15/21 13:07 18:58 18:58 WBC RBC Hgb Hct MCV MCH MCHC RDW Plt Count MPV Immature Gran % (Auto) Neut % (Auto) Lymph % (Auto) [place] % (Auto) Eos % (Auto) Baso % (Auto) Lymph # (Auto) [place] # (Auto) Eos # (Auto) Baso # (Auto) Abs Immat Gran (auto) Absolute Neuts (auto) Absolute Nucleated RBC Nucleated RBC % (auto) O2 Saturation ABG pH at Pt Temp ABG pCO2 at Pt Temp ABG pO2 at Pt Temp ABG HCO3 ABG Base Excess (Actual) Sodium 137 Potassium 4.9 Chloride 108 Carbon Dioxide 17 L Anion Gap 17 BUN 36 H Creatinine 1.80 H Estim Creat Clear Calc 38.1 Estimated GFR 29 POC Glucose 323 H Random Glucose 209 H Lactic Acid F/U @ 2Hr 2.6 H* Lactic Acid F/U @ 4Hr Calcium 8.0 L D Phosphorus Magnesium Total Bilirubin AST ALT Alkaline Phosphatase Total Creatine Kinase B-Natriuretic Peptide Total Protein Albumin 07/15/21 07/15/21 07/15/21 20:29 20:54 21:52 WBC RBC Hgb Hct MCV MCH MCHC RDW Plt Count MPV Immature Gran % (Auto) Neut % (Auto) Lymph % (Auto) [place] % (Auto) Eos % (Auto) Baso % (Auto) Lymph # (Auto) [place] # (Auto) Eos # (Auto) Baso # (Auto) Abs Immat Gran (auto) Absolute Neuts (auto) Absolute Nucleated RBC Nucleated RBC % (auto) O2 Saturation 94.0 ABG pH at Pt Temp 7.35 ABG pCO2 at Pt Temp 30 L ABG pO2 at Pt Temp 78 L ABG HCO3 17 L ABG Base Excess (Actual) -7.0 Sodium Potassium Chloride Carbon Dioxide Anion Gap BUN Creatinine Estim Creat Clear Calc Estimated GFR POC Glucose 193 H 193 H Random Glucose Lactic Acid F/U @ 2Hr Lactic Acid F/U @ 4Hr Calcium Phosphorus Magnesium Total Bilirubin AST ALT Alkaline Phosphatase Total Creatine Kinase B-Natriuretic Peptide Total Protein Albumin 07/15/21 07/15/21 07/15/21 22:04 22:05 22:05 WBC RBC Hgb Hct MCV MCH MCHC RDW Plt Count MPV Immature Gran % (Auto) Neut % (Auto) Lymph % (Auto) [place] % (Auto) Eos % (Auto) Baso % (Auto) Lymph # (Auto) [place] # (Auto) Eos # (Auto) Baso # (Auto) Abs Immat Gran (auto) Absolute Neuts (auto) Absolute Nucleated RBC Nucleated RBC % (auto) O2 Saturation ABG pH at Pt Temp ABG pCO2 at Pt Temp ABG pO2 at Pt Temp ABG HCO3 ABG Base Excess (Actual) Sodium 140 Potassium 5.3 H Chloride 108 Carbon Dioxide 21 L Anion Gap 16 BUN 33 H Creatinine 1.67 H Estim Creat Clear Calc 41.1 Estimated GFR 32 POC Glucose Random Glucose 205 H Lactic Acid F/U @ 2Hr Lactic Acid F/U @ 4Hr 2.2 H* Calcium 7.8 L Phosphorus 3.6 Magnesium 1.3 L* Total Bilirubin AST ALT Alkaline Phosphatase Total Creatine Kinase 1435 H B-Natriuretic Peptide 40 Total Protein Albumin 07/16/21 07/16/21 07/16/21 05:09 05:09 05:10 WBC 19.1 H RBC 4.59 Hgb 13.1 Hct 38.9 MCV 84.7 MCH 28.5 MCHC 33.7 RDW 14.6 Plt Count 319 MPV 11.6 Immature Gran % (Auto) 0.4 Neut % (Auto) 78.3 H Lymph % (Auto) 17.0 L [place] % (Auto) 3.8 Eos % (Auto) 0.1 Baso % (Auto) 0.4 Lymph # (Auto) 3.2 [place] # (Auto) 0.7 Eos # (Auto) 0.0 Baso # (Auto) 0.1 Abs Immat Gran (auto) 0.08 H Absolute Neuts (auto) 15.0 H Absolute Nucleated RBC 0.000 Nucleated RBC % (auto) 0.0 O2 Saturation ABG pH at Pt Temp ABG pCO2 at Pt Temp ABG pO2 at Pt Temp ABG HCO3 ABG Base Excess (Actual) Sodium 143 Potassium 4.8 Chloride 107 Carbon Dioxide 22 Anion Gap 19 BUN 26 H Creatinine 1.35 Estim Creat Clear Calc 50.7 Estimated GFR 40 POC Glucose Random Glucose 276 H Lactic Acid F/U @ 2Hr Lactic Acid F/U @ 4Hr Calcium 8.9 D Phosphorus 3.0 Magnesium 1.8 Total Bilirubin AST ALT Alkaline Phosphatase Total Creatine Kinase 1147 H B-Natriuretic Peptide 79 Total Protein Albumin 3.7 07/16/21 07/16/21 07/16/21 07:34 11:52 16:52 WBC RBC Hgb Hct MCV MCH MCHC RDW Plt Count MPV Immature Gran % (Auto) Neut % (Auto) Lymph % (Auto) [place] % (Auto) Eos % (Auto) Baso % (Auto) Lymph # (Auto) [place] # (Auto) Eos # (Auto) Baso # (Auto) Abs Immat Gran (auto) Absolute Neuts (auto) Absolute Nucleated RBC Nucleated RBC % (auto) O2 Saturation ABG pH at Pt Temp ABG pCO2 at Pt Temp ABG pO2 at Pt Temp ABG HCO3 ABG Base Excess (Actual) Sodium Potassium Chloride Carbon Dioxide Anion Gap BUN Creatinine Estim Creat Clear Calc Estimated GFR POC Glucose 314 H 245 H 290 H Random Glucose Lactic Acid F/U @ 2Hr Lactic Acid F/U @ 4Hr Calcium Phosphorus Magnesium Total Bilirubin AST ALT Alkaline Phosphatase Total Creatine Kinase B-Natriuretic Peptide Total Protein Albumin 07/16/21 07/17/21 07/17/21 20:03 05:58 05:58 WBC 13.9 H RBC 4.36 Hgb 12.5 Hct 37.5 MCV 86.0 MCH 28.7 MCHC 33.3 RDW 14.4 Plt Count 289 MPV 11.1 Immature Gran % (Auto) 1.4 H Neut % (Auto) 76.9 H Lymph % (Auto) 16.1 L [place] % (Auto) 5.0 Eos % (Auto) 0.1 Baso % (Auto) 0.5 Lymph # (Auto) 2.2 [place] # (Auto) 0.7 Eos # (Auto) 0.0 Baso # (Auto) 0.1 Abs Immat Gran (auto) 0.20 H Absolute Neuts (auto) 10.7 H Absolute Nucleated RBC 0.000 Nucleated RBC % (auto) 0.0 O2 Saturation ABG pH at Pt Temp ABG pCO2 at Pt Temp ABG pO2 at Pt Temp ABG HCO3 ABG Base Excess (Actual) Sodium 145 Potassium 3.8 D Chloride 104 Carbon Dioxide 25 Anion Gap 20 BUN 15 Creatinine 1.08 Estim Creat Clear Calc 63.3 Estimated GFR 52 POC Glucose 188 H Random Glucose 318 H Lactic Acid F/U @ 2Hr Lactic Acid F/U @ 4Hr Calcium 9.4 Phosphorus 2.1 L Magnesium 1.3 L* Total Bilirubin 0.6 AST 19 D ALT 15 Alkaline Phosphatase 99 Total Creatine Kinase 540 H D B-Natriuretic Peptide Total Protein 6.8 Albumin 3.8 07/17/21 07/17/21 07/17/21 07:01 10:54 15:51 WBC RBC Hgb Hct MCV MCH MCHC RDW Plt Count MPV Immature Gran % (Auto) Neut % (Auto) Lymph % (Auto) [place] % (Auto) Eos % (Auto) Baso % (Auto) Lymph # (Auto) [place] # (Auto) Eos # (Auto) Baso # (Auto) Abs Immat Gran (auto) Absolute Neuts (auto) Absolute Nucleated RBC Nucleated RBC % (auto) O2 Saturation ABG pH at Pt Temp ABG pCO2 at Pt Temp ABG pO2 at Pt Temp ABG HCO3 ABG Base Excess (Actual) Sodium Potassium Chloride Carbon Dioxide Anion Gap BUN Creatinine Estim Creat Clear Calc Estimated GFR POC Glucose 282 H 263 H 299 H Random Glucose Lactic Acid F/U @ 2Hr Lactic Acid F/U @ 4Hr Calcium Phosphorus Magnesium Total Bilirubin AST ALT Alkaline Phosphatase Total Creatine Kinase B-Natriuretic Peptide Total Protein Albumin Imaging Radiology Impressions: ITS Impressions Chest X-Ray 07/15/21 13:53 IMPRESSION: No acute cardiopulmonary abnormality. Head CT 07/15/21 14:52 IMPRESSION: No acute intracranial pathology. Chest X-Ray 07/15/21 19:14 IMPRESSION: Unremarkable examination. Abdomen/Pelvis CT 07/15/21 21:40 IMPRESSION: *No CT evidence of acute intra-abdominal process to explain patient's symptoms. *Appendix not visualized, surgical clips adjacent to the cecum probably from prior appendectomy. *The urinary bladder is decompressed, [place] catheter in place. *Hardware posterior fusion of the lumbar spine and partial compression fracture superior endplate L3 chronic stable. *Cortical defect probably a scar middle pole right kidney prior renal injury Mental Status Exam Mental Status Exam Narrative: A&O except to situation. Overweight, unkempt appearance, appears older than stated age, in casual attire. Poor eye contact, inattentive. No Tics or Tremors. No abnormal involuntary movements. Disinterested in engaging, wants to leave. Non-pressured speech, spontaneous with regular rate and rhythm, normal volume and prosody. No prolonged speech latency or dysarthria. Mood is ?good,? affect is somewhat blunted. Denies SI/SIB/HI upon inquiry. Denies A/VH or delusional thought content. Thoughts are slowed. Question of cognitive/ memory impairment. Insight/ Judgment limited but adequate. Medications Medications Current Medications Acetaminophen (Acetaminophen Supp 650 Mg Supp.Rect) 650 mg [place] Q6H PRN PRN Reason: Pain, Mild (Pain Scale 1-3) Acetaminophen (Acetaminophen 325 Mg Tablet) 650 mg PO Q6H PRN PRN Reason: Pain, Mild (Pain Scale 1-3) Last Admin: 07/17/21 16:47 Dose: 650 mg Documented by: Amlodipine Besylate (Amlodipine Besylate 5 Mg Tablet) 5 mg PO DAILY [facility]; Protocol Last Admin: 07/17/21 16:47 Dose: 5 mg Documented by: Clonidine HCl (Clonidine Hcl 0.2 Mg Tablet) 0.2 mg PO TID [facility]; Protocol Dextrose (Dextrose 50 % 25 Gm/50 Ml Syringe) 25 gm IVPUSH Q15M PRN; Protocol PRN Reason: per Hypoglycemia Standing Ord. Docusate Sodium (Docusate Sodium 100 Mg Capsule) 100 mg PO DAILY PRN PRN Reason: Constipation Glucose (Glucose Gel 15 Gm Gel..Gram.) 15 gm PO Q15M PRN; Protocol PRN Reason: per Hypoglycemia Standing Ord. Heparin Sodium (Porcine) (Heparin Sodium,Porcine 5,000 Unit/Ml Vial) 5,000 unit SUBCUT Q12H [facility] Last Admin: 07/17/21 16:48 Dose: 5,000 unit Documented by: Ceftriaxone Sodium 1 gm/ (Sodium Chloride) 50 mls @ 100 mls/hr IV Q24H [facility] Last Infusion: 07/17/21 14:23 Dose: Infused Documented by: Insulin Human Lispro (Insulin Lispro 100 Unit/Ml 3 Ml Vial) 0 unit SUBCUT QIDACHS [facility]; Protocol Last Admin: 07/17/21 16:47 Dose: 6 unit Documented by: Lamotrigine (Lamotrigine 25 Mg Tablet) 50 mg PO BID [facility] Last Admin: 07/17/21 08:01 Dose: 50 mg Documented by: [place] Carbonate ([place] Carbonate 300 Mg Tablet) 150 mg PO DAILY [facility] Last Admin: 07/17/21 08:02 Dose: 150 mg Documented by: Lorazepam (Lorazepam 2 Mg/Ml Vial) 1 mg IVPUSH Q6H PRN PRN Reason: Anxiety Last Admin: 07/17/21 13:02 Dose: 1 mg Documented by: Lurasidone HCl (Lurasidone Hcl 20 Mg Tablet) 20 mg PO DAILY [facility] Last Admin: 07/17/21 08:02 Dose: 20 mg Documented by: Nicotine (Nicotine 21 Mg Patch.Td24) 21 mg TRANSDERMA DAILY [facility] Ondansetron HCl (Ondansetron Hcl 4 Mg/2 Ml Vial) 4 mg IVPUSH Q8H PRN PRN Reason: Nausea and Vomiting Oxycodone HCl (Oxycodone Hcl Immed Release 5 Mg Tablet) 5 mg PO ONCE ONE Stop: 07/17/21 17:28 Pharmacy Consult (Consult Rx Perform Med Rec) 1 each MISCELLANE ONCE PRN PRN Reason: Consult order Sodium Chloride (0.9 % Sodium Chloride Flush 3 Ml Syringe) 3 ml IVFLUSH QSHIFT [facility] Last Admin: 07/17/21 16:47 Dose: 3 ml Documented by: Allergies Allergies Allergy/AdvReac Type Severity Reaction Status Date / Time morphine [MORPHINE] Allergy Unknown RASH, vomit Unverified 11/26/19 17:43 prednisone Allergy Unknown hives Verified 10/18/16 00:00 Sulfa (Sulfonamide Allergy Unknown UNKNOWN, Unverified 11/26/19 17:43 Antibiotics) hives [SULFA (SULFONAMIDE ANTIBIOTICS)] Assessment & Plan Assessment & Plan (1) Polysubstance abuse: Status: Acute Code(s): F19.10 - Other psychoactive substance abuse, uncomplicated (2) Bipolar disorder: Status: Acute Code(s): F31.9 - Bipolar disorder, unspecified Plan Pt is a 56 y.o. female who presented to altered mental status, utox positive for opiates and fentanyl. She was is wanting to leave, psych consulted requested for disposition, as pt is attempting to leave AMA. Head CT negative. On antibiotic for UTI. Pt's home meds of lithium and latuda continued. Li level subtherapeutic, pt has inconsistent adherence. Roommate is HCP and agrees to help pt with med administration, reviewed med list with him. Pt has OP psych services, will follow up with providers and PCP. Pt does not want med changes. Denies SI/SIB/HI. She is more alert and independent today, does not meet criteria for psychiatric IPLOC. I have shared this with Chrsisie Simmons Thank you for this consultation. If you have any questions or concerns, please do not hesitate to contact psychiatry service. I spent minutes with the patient and/or on the patient floor today, greater than?50% of which was spent counseling/coordinating care. Patient educated on: medication risk/benefits and therapeutic strategies
[2021-07-17 18:00] LABS: Venous Blood Gas Refer to POC result
[2021-07-17 18:01] LABS: VBG Base Excess 1.5 mmol/L; VBG HCO3 21 mmol/L (22-26); VBG pCO2 23 mmHg; VBG pH 7.57 (7.32-7.43); VBG pO2 183 mmHg
[2021-07-17 18:09] LABS: Ammonia 28 umol/L (13-55)
[2021-07-17 18:40] VITALS: BP 192/90
[2021-07-17] MEDS: oxyCODONE HCl Immed Release 5 MG TABLET PO (18:45)
[2021-07-17] MEDS: Nicotine 21 MG PATCH.TD24 TRANSDERMA (18:45)
[2021-07-17] MEDS: cloNIDine HCL 0.2 MG TABLET PO ×2 (18:45→20:37)
[2021-07-17 19:34] VITALS: BP 174/78; PULSE 88; RESP 18; TEMP 37.1; O2SAT 96
[2021-07-17 20:48] LABS: Glucose, Whole Blood 296 mg/dL (60-115)
[2021-07-18] VITALS: BP 165/88; PULSE 95; RESP 18; TEMP 37.2; O2SAT 97
[2021-07-18] MEDS: ondansetron HCL 4 MG/2 ML VIAL IVPUSH (01:18)
[2021-07-18 04:00] VITALS: BP 160/82; PULSE 90; TEMP 36.7; O2SAT 97
[2021-07-18] MEDS: LORazepam 2 MG/ML VIAL 1 MG IVPUSH ×2 (04:21→11:28)
[2021-07-18] MEDS: Heparin Sodium,Porcine 5,000 UNIT/ML VIAL 5000 UNIT SUBCUT ×2 (04:21→16:49)
[2021-07-18 07:14] VITALS: BP 150/90; PULSE 91; RESP 18; TEMP 36.6; O2SAT 98
[2021-07-18 07:24] LABS: Glucose, Whole Blood 271 mg/dL (60-115)
[2021-07-18 07:52] LABS: Anion Gap 15 (12-20); Blood Urea Nitrogen 16 mg/dL (9-16); Calcium 9.5 mg/dL (8.4-10.2); Carbon Dioxide 27 mmol/L (22-29); Chloride 100 mmol/L (96-108); Estimated Glomerular Filt Rate 49; Glucose Random 308 mg/dL (60-115); Potassium 3.8 mmol/L (3.3-5.1); Sodium 138 mmol/L (135-145)
[2021-07-18] MEDS: Insulin Lispro 100 UNIT/ML 3 ML VIAL SUBCUT ×3 (08:21→16:49)
[2021-07-18 11:14] LABS: Glucose, Whole Blood 245 mg/dL (60-115)
[2021-07-18 11:17] VITALS: BP 131/59; PULSE 79; RESP 20; TEMP 36.8; O2SAT 95
[2021-07-18] MEDS: Nicotine 21 MG PATCH.TD24 TRANSDERMA (11:20)
[2021-07-18] MEDS: cloNIDine HCL 0.2 MG TABLET PO ×2 (11:22→14:06)
[2021-07-18] MEDS: 0.9 % Sodium Chloride Flush 3 ML SYRINGE IVFLUSH ×2 (11:22→16:50)
[2021-07-18] MEDS: lamoTRIgine 25 MG TABLET 50 MG PO (11:22)
[2021-07-18] MEDS: amLODIPine Besylate 5 MG TABLET PO (11:22)
[2021-07-18] MEDS: Lurasidone HCl 20 MG TABLET PO (11:22)
--- NOTE | 2021-07-18 12:26 | P.PNIM_ITS ---
Subjective Subjective Date of Service: 07/18/21 Review of Systems Follow up encephalopathy agitation overnight Physical Exam Vital Signs: Vital Signs: Last Vital Signs Temp 98.2 F 07/18/21 11:17 Pulse 79 07/18/21 11:17 Resp 20 07/18/21 11:17 BP 131/59 L 07/18/21 11:17 Pulse Ox 95 07/18/21 11:17 BMI result Body Mass Index 32.6 Appearing in no acute distress lung sounds are clear to auscultation heart regular rate rhythm, clear S1, S2 positive bowel sounds, abdomen is soft, nontender neuro patient is alert x3, no focal deficits Objective Data Active Medications Acetaminophen (Acetaminophen Supp 650 Mg Supp.Rect) 650 mg DC Q6H PRN PRN Reason: Pain, Mild (Pain Scale 1-3) Acetaminophen (Acetaminophen 325 Mg Tablet) 650 mg PO Q6H PRN PRN Reason: Pain, Mild (Pain Scale 1-3) Last Admin: 07/17/21 16:47 Dose: 650 mg Documented by: INOCENTE Amlodipine Besylate (Amlodipine Besylate 5 Mg Tablet) 5 mg PO DAILY [facility]; Pro tocol Last Admin: 07/18/21 11:22 Dose: 5 mg Documented by: INOCENTE Clonidine HCl (Clonidine Hcl 0.2 Mg Tablet) 0.2 mg PO TID [facility]; Protocol Last Admin: 07/18/21 11:22 Dose: 0.2 mg Documented by: INOCENTE Dextrose (Dextrose 50 % 25 Gm/50 Ml Syringe) 25 gm IVPUSH Q15M PRN; Protocol PRN Reason: per Hypoglycemia Standing Ord. Docusate Sodium (Docusate Sodium 100 Mg Capsule) 100 mg PO DAILY PRN PRN Reason: Constipation Glucose (Glucose Gel 15 Gm Gel..Gram.) 15 gm PO Q15M PRN; Protocol PRN Reason: per Hypoglycemia Standing Ord. Heparin Sodium (Porcine) (Heparin Sodium,Porcine 5,000 Unit/Ml Vial) 5,000 unit SUBCUT Q12H [facility] Last Admin: 07/18/21 04:21 Dose: 5,000 unit Documented by: DEEJAY Ceftriaxone Sodium 1 gm/ (Sodium Chloride) 50 mls @ 100 mls/hr IV Q24H [facility] Last Infusion: 07/17/21 14:23 Dose: 0 mls/hr Documented by: INOCENTE Insulin Human Lispro (Insulin Lispro 100 Unit/Ml 3 Ml Vial) 0 unit SUBCUT QIDACHS [facility]; Protocol Last Admin: 07/18/21 11:29 Dose: 4 unit Documented by: INOCENTE Lamotrigine (Lamotrigine 25 Mg Tablet) 50 mg PO BID [facility] Last Admin: 07/18/21 11:22 Dose: 50 mg Documented by: INOCENTE Annetta North Carbonate (Annetta North Carbonate 300 Mg Tablet) 150 mg PO DAILY [facility] Last Admin: 07/17/21 08:02 Dose: 150 mg Documented by: INOCENTE Lorazepam (Lorazepam 2 Mg/Ml Vial) 1 mg IVPUSH Q6H PRN PRN Reason: Anxiety Last Admin: 07/18/21 11:28 Dose: 1 mg Documented by: INOCENTE Lurasidone HCl (Lurasidone Hcl 20 Mg Tablet) 20 mg PO DAILY [facility] Last Admin: 07/18/21 11:22 Dose: 20 mg Documented by: INOCENTE Nicotine (Nicotine 21 Mg Patch.Td24) 21 mg TRANSDERMA DAILY [facility] Last Admin: 07/18/21 11:20 Dose: 21 mg Documented by: INOCENTE Ondansetron HCl (Ondansetron Hcl 4 Mg/2 Ml Vial) 4 mg IVPUSH Q8H PRN PRN Reason: Nausea and Vomiting Last Admin: 07/18/21 01:18 Dose: 4 mg Documented by: DEEJAY Pharmacy Consult (Consult Rx Perform Med Rec) 1 each MISCELLANE ONCE PRN PRN Reason: Consult order Sodium Chloride (0.9 % Sodium Chloride Flush 3 Ml Syringe) 3 ml IVFLUSH QSHIFT [facility] Last Admin: 07/18/21 11:22 Dose: 3 ml Documented by: INOCENTE Labs CBC & Chem 7: 07/17/21 05:58 07/18/21 07:26 Labs: Laboratory Results - last 24 hr 07/17/21 07/17/21 07/17/21 15:51 17:50 17:53 VBG pH 7.57 H VBG pCO2 23 VBG pO2 183 VBG HCO3 21 L VBG O2 Saturation 99.0 VBG Base Excess 1.5 Anion Gap Estim Creat Clear Calc Estimated GFR POC Glucose 299 H Random Glucose Calcium Ammonia 28 07/17/21 07/18/21 07/18/21 20:04 07:12 07:26 VBG pH VBG pCO2 VBG pO2 VBG HCO3 VBG O2 Saturation VBG Base Excess Anion Gap 15 Estim Creat Clear Calc 60.0 Estimated GFR 49 POC Glucose 296 H 271 H Random Glucose 308 H Calcium 9.5 Ammonia 07/18/21 11:10 VBG pH VBG pCO2 VBG pO2 VBG HCO3 VBG O2 Saturation VBG Base Excess Anion Gap Estim Creat Clear Calc Estimated GFR POC Glucose 245 H Random Glucose Calcium Ammonia Microbiology Microbiology Results: Microbiology 07/15/21 13:39 Blood Culture - Final Blood - Venous Coag negative Staphylococcus 07/15/21 13:39 Blood Culture - Preliminary Blood - Venous No growth after 48 hours. Assessment and Plan (1) Altered mental status: Status: Acute Plan 56 year ld women tx from ICU due to hypotension. Hypotension likey secondary to hypovolemia> Resolved Treated in the ICU/ED with pressors BP recovered and is now on the high side? Lisinopril restarted at lower dose Toxic Metabolic encephalopathy, acute> Resolving Discussed with her roomate Jaxson, apparently she snorts heroine and may have had an OD, she also buys percocet on the street Synptoms were likely related to withdrawl, seemed to resolve after admin of oxycodone Brain CT negative, no focal neurological deficits appreciated although difficult to complete full neurologic exam neurology consult pending neuro checks opiate use Buys street drugs and uses heroin Addiction team consult DANY. Likely secondary to hypoperfusion, hypovolemia trending down follow renal function IVF stopped lactic acidosis secondary to hypovolemia/hypotension/metformin use does not meet SIRS criteria/no sepsis Ecoli UTI no sepsis will treat with ceftriaxone Rhabdomyolysis CPK 1286 IV fluid Trend CPK h/o seizure disorder roommate reports not currently on seizure meds and no active seizures in over 2 years seizure precautions neuro consult pending Hyponatremia. Resolved Likely secondary to hypokalemia Follow BMP DM with neuropathy SSI, POCs hold metformin, januvia peripheral neuropathy hold pregabalin bipolar disorder lithium level subtherapeutic continue lithium (follow level given DANY), latuda hold seroquel, ativan due to sedation, consider restarting as mental status improves *roommate found full bottles of some medications in her room that haven't been filled recently. It is difficult to determine which medications she is supposed to be taking and which medications she was actually taking DVT ppx - heparin Code status - presumed full code, no MOLST in system No HCP on file; contacts - Roommate Jaxson [phone] number in system, daughter Liseth Cruz [phone] [place] Attending -Dr. Kebede Given multitude of acute medical issues patient will require 2 midnight stay in the hospital for further management and workup encephalopathy, DANY, hypotension, rhabdomyolysis, hyponatremia? Quality Stroke Does the patient have a stroke diagnosis?: No VTE Prior VTE?: No VTE Risk Level:: Medical - moderate - high VTE Device Contraindication: N/A - Device Ordered VTE Drug Contraindication: N/A - Med Ordered
[2021-07-18] MEDS: cefTRIAXone sodium 1 GM in 0.9 % Sodium Chloride 50 ML IV (14:04)
[2021-07-18 15:19] VITALS: BP 153/81; PULSE 90; RESP 14; TEMP 37.4; O2SAT 98
[2021-07-18 16:18] LABS: Glucose, Whole Blood 282 mg/dL (60-115)
--- NOTE | 2021-07-18 18:34 | P.DS_ITS ---
DS: Providers Provider Date of Service: 07/18/21 Date of admission: 07/15/21 17:15 Primary care physician: Unknown Physician Consults: 07/15/21 17:14 Consult to Neurology Routine Consulting Provider: [facility] Reason for consultation: encephalopathy Has provider been notified: No 07/16/21 11:33 Consult to Psychiatry Routine Consulting Provider: Psych Covering Reason for consultation: Schizophrenia, med management Has provider been notified: No 07/17/21 17:26 Addiction Medicine Routine Consulting Provider: Anjali Long Reason for consultation: heroine abuse Has provider been notified: No Attending physician on discharge: Paul Kebede Discharging clinician: Mary Fried DS: Diagnosis Discharge Diagnosis (1) Altered mental status: Status: Acute DS: Summary Hospital Course Hospital Course: Left against medical advice prior to completing treatment. Just prior to that however she was seen by the psychiatric team and not found to have any reason why she would need inpatient psychiatric admission she also declined any medication adjustments. Patient was told that she had not completed treatment and she could decompensate very quickly or symptoms could worsen. She reported that she understood and she was alert and oriented x3 and made the decision to leave against medical advice. Treated for the following: Hypotension likey secondary to hypovolemia> Resolved Treated in the ICU/ED with pressors BP recovered and is now on the high side? Lisinopril restarted at lower dose Toxic Metabolic encephalopathy, acute> Resolving Discussed with her roomate Jaxson, apparently she snorts heroine and may have had an OD, she also buys percocet on the street Synptoms were likely related to withdrawl, seemed to resolve after admin of oxycodone Brain CT negative, no focal neurological deficits appreciated although difficult to complete full neurologic exam neurology consult pending neuro checks opiate use Buys street drugs and uses heroin Addiction team consulted, declined suboxone DANY. Likely secondary to hypoperfusion, hypovolemia trending down follow renal function IVF stopped lactic acidosis secondary to hypovolemia/hypotension/metformin use does not meet SIRS criteria/no sepsis Ecoli UTI no sepsis will treat with ceftriaxone home with ceftin for 5 days Rhabdomyolysis CPK 1286 IV fluid Trend CPK h/o seizure disorder roommate reports not currently on seizure meds and no active seizures in over 2 years seizure precautions neuro consult pending Hyponatremia. Resolved Likely secondary to hypokalemia Follow BMP DM with neuropathy SSI, POCs hold metformin, januvia peripheral neuropathy hold pregabalin bipolar disorder lithium level subtherapeutic continue lithium (follow level given DANY), latuda hold seroquel, ativan due to sedation, consider restarting as mental status improves Time Spent with Patient Time attestation: Total time spent providing and/or coordinating discharge services: Discharge coordination time: Greater than 30 minutes Quality: Safe Use of Opioids Does Pt have an Active Cancer Diagnosis on the Problem List?: No Quality: Stroke Does the patient have a stroke diagnosis?: No Physical Exam Vital Signs: Vital Signs: Last Vital Signs Temp 99.3 F 07/18/21 15:19 Pulse 90 07/18/21 15:19 Resp 14 07/18/21 15:19 BP 153/81 H 07/18/21 15:19 Pulse Ox 98 07/18/21 15:19 BMI result Body Mass Index 32.6 LEFT AMA DS: Data Data Completed and Pending Labs on day of discharge: Laboratory Results - last 24 hr 07/17/21 07/18/21 07/18/21 20:04 07:12 07:26 Sodium 138 Potassium 3.8 Chloride 100 Carbon Dioxide 27 Anion Gap 15 BUN 16 Creatinine 1.14 Estim Creat Clear Calc 60.0 Estimated GFR 49 POC Glucose 296 H 271 H Random Glucose 308 H Calcium 9.5 07/18/21 07/18/21 11:10 16:08 Sodium Potassium Chloride Carbon Dioxide Anion Gap BUN Creatinine Estim Creat Clear Calc Estimated GFR POC Glucose 245 H 282 H Random Glucose Calcium Preliminary micro results at discharge 07/15/21 13:39 Blood Culture - Preliminary Blood - Venous No growth after 48 hours. Discharge Plan Discharge Anticipated Discharge Date/Time: 07/18/21 18:30 Patient Disposition: Left Against Medical Advice Discharge Diagnosis: Toxic metabolic encephalopathy Hypotension Opiate use DANY E coli UTI Rhabdomyolysis Discharge Medications: New cefuroxime axetil 500 mg tablet 500 mg PO BID Qty: 10 0RF Continued pregabalin 150 mg Capsule 150 mg PO BID 0RF quetiapine [Seroquel] 200 mg Tablet 200 mg PO BEDTIME 0RF lithium carbonate 150 mg Capsule 150 mg PO DAILY 0RF clonidine HCl 0.2 mg Tablet 0.2 mg PO TID PRN (Reason: Anxiety) 0RF lorazepam 0.5 mg Tablet 0.5 mg PO DAILY PRN (Reason: Anxiety) 0RF Latuda 20 mg Tablet 20 mg PO DAILY 0RF Rx Instructions: must administer with food (at least 350 calories) cyanocobalamin (vitamin B-12) 1,000 mcg Tablet 1,000 mcg PO DAILY 0RF atorvastatin 20 mg Tablet 20 mg PO BEDTIME 0RF metformin 1,000 mg Tablet 1,000 mg PO BIDWMEAL 0RF Januvia 100 mg Tablet 100 mg PO DAILY 0RF lisinopril 30 mg Tablet 30 mg PO DAILY 0RF Discharge Orders: Discharge Order (Routine); Ordered 07/18/21 Ordered By: Mary Fried Diet: advance to usual diet Activity on Discharge: As tolerated Care Plan Goals: left against medical advice prior to completing treatment Health Concerns: Toxic metabolic encephalopathy Hypotension Opiate use DANY E coli UTI Rhabdomyolysis Plan of Treatment: left against medical advice prior to completing treatment Assessment: see discharge summary
--- NOTE | 2021-07-18 19:51 | PC.NURSE ---
Pt increasingly agitated and stated she wants to leave AMA. Pt asked for the paper to sign. Hospitalist Mary Fried notified. Psych consult Eli saw patient and deemed pt competent to make medical decisions. Hospitalist confirmed that pt is not section 12 and can make her own medical decisions. Pt continued to ask RN to removed IVs and stating she will leave the hospital. This RN removed 2 IVs and patient signed AMA form with 2 RN witnesses. Nurse supervisor education and hospitalist notified that patient left AMA with car ride home from roommate and brother.
--- NOTE | 2021-07-19 09:34 | HO.ADDICTCON ---
History of Present Illness Date of Service: 07/18/2021 Chief Complaint: encephalopathy, DANY Reason for Consult: opioid use eval and recs Requesting physician: Mary Fried Discussed with referring provider: Yes Sources of Information: patient interviewed and chart reviewed HPI Narrative: Patient is a 56 year old female medically admitted with ecephalopathy. UDS +Fentamyl, and collateral obtained by hospitalist was that patient was regularly using heroin intranasally. She was administered oxycodone X1 and several sx resolved ? of opioid withdrawal contributing to presentation. When seen by this underwriter solicitation director, patient was awake, alert, but minimally engaged in interview Denies any substance use, denies any withdrawal sx, acknowledges long time opioid prescriptions, but again denies any withdrawal sx following discontinuation of prescriptions. Flat affect, asking when she can go home, declining any referrals or resources. Declining to discuss any further Review of Systems Review of Systems Yes Other (patient declined) Diagnostics Vital Signs (24Hr): Vital Signs - 24 hr 07/18/21 11:17 07/18/21 15:19 Temperature 98.2 F 99.3 F Pulse Rate 79 90 Respiratory Rate 20 14 Blood Pressure 131/59 L 153/81 H Pulse Oximetry 95 98 BMI result Body Mass Index 32.6 Labs Results: 07/17/21 05:58 07/18/21 07:26 Labs: Laboratory Results - last 48 hr 07/15/21 07/17/21 07/17/21 13:07 10:54 15:51 VBG pH VBG pCO2 VBG pO2 VBG HCO3 VBG O2 Saturation VBG Base Excess Sodium Potassium Chloride Carbon Dioxide Anion Gap BUN Creatinine Estim Creat Clear Calc Estimated GFR POC Glucose 323 H 263 H 299 H Random Glucose Calcium Ammonia 07/17/21 07/17/21 07/17/21 17:50 17:53 20:04 VBG pH 7.57 H VBG pCO2 23 VBG pO2 183 VBG HCO3 21 L VBG O2 Saturation 99.0 VBG Base Excess 1.5 Sodium Potassium Chloride Carbon Dioxide Anion Gap BUN Creatinine Estim Creat Clear Calc Estimated GFR POC Glucose 296 H Random Glucose Calcium Ammonia 28 07/18/21 07/18/21 07/18/21 07:12 07:26 11:10 VBG pH VBG pCO2 VBG pO2 VBG HCO3 VBG O2 Saturation VBG Base Excess Sodium 138 Potassium 3.8 Chloride 100 Carbon Dioxide 27 Anion Gap 15 BUN 16 Creatinine 1.14 Estim Creat Clear Calc 60.0 Estimated GFR 49 POC Glucose 271 H 245 H Random Glucose 308 H Calcium 9.5 Ammonia 07/18/21 16:08 VBG pH VBG pCO2 VBG pO2 VBG HCO3 VBG O2 Saturation VBG Base Excess Sodium Potassium Chloride Carbon Dioxide Anion Gap BUN Creatinine Estim Creat Clear Calc Estimated GFR POC Glucose 282 H Random Glucose Calcium Ammonia Imaging Radiology Impressions: ITS Impressions Chest X-Ray 07/15/21 13:53 IMPRESSION: No acute cardiopulmonary abnormality. Head CT 07/15/21 14:52 IMPRESSION: No acute intracranial pathology. Chest X-Ray 07/15/21 19:14 IMPRESSION: Unremarkable examination. Abdomen/Pelvis CT 07/15/21 21:40 IMPRESSION: *No CT evidence of acute intra-abdominal process to explain patient's symptoms. *Appendix not visualized, surgical clips adjacent to the cecum probably from prior appendectomy. *The urinary bladder is decompressed, Ashford catheter in place. *Hardware posterior fusion of the lumbar spine and partial compression fracture superior endplate L3 chronic stable. *Cortical defect probably a scar middle pole right kidney prior renal injury Chest X-Ray 07/17/21 18:04 IMPRESSION: Patchy opacities in the lingula may represent pneumonia in appropriate clinical setting. Mental Status Exam Mental Status Exam Patient Appearance: Appropriate Level of Consciousness: Awake and Alert Patient Behavior: Guarded Affect Description: Flat Medications Allergies Allergies Allergy/AdvReac Type Severity Reaction Status Date / Time morphine [MORPHINE] Allergy Unknown RASH, vomit Unverified 11/26/19 17:43 prednisone Allergy Unknown hives Verified 10/18/16 00:00 Sulfa (Sulfonamide Allergy Unknown UNKNOWN, Unverified 11/26/19 17:43 Antibiotics) hives [SULFA (SULFONAMIDE ANTIBIOTICS)] Assessment & Plan Assessment & Plan (1) Altered mental status: Status: Acute Code(s): R41.82 - Altered mental status, unspecified Assessment and Plan: discussed with hospitalist, based on history, collateral and improvment of sx with opioids likely opioid withdrawal contributing to clinical picture. patient declining any intervention or resources I spent __25____ minutes with the patient and/or on the patient floor today, greater than?50% of which was spent counseling/coordinating care. [facility] Past Medical History Medical History (Updated 07/16/21 @ 09:55 by Star Berger MD) Asthma Bipolar disorder Chronic pain Diabetes Hypertension IBS (irritable bowel syndrome) Peripheral neuropathy Polysubstance abuse Seizure Surgical History Surgical History History of appendectomy Social History Social History (Updated 07/15/21 @ 17:31 by NAHOMY Jean) Household Members: Other Housing: Unknown / Unable to assess Do you presently have visiting nurse or other home services: No Unable to assess alcohol history related to: Unknown Alcohol intake: never Patient Tobacco Use Status: Tobacco use Unknown Substance Use Type: Prescription Drugs service: No Current occupational status: disabled
== END 2021-07-18 18:41 | disposition left against medical advice (07) | DRG 917 ==
LOC: HO.ED 15:43 → HO.EDOVER 17:26 → HO.ICU 20:44 → HO.IMC 07-16 20:43
PROVIDERS: Emergency Medicine Emergency Medical Services; Internal Medicine; Internal Medicine Pulmonary Disease; Registered Nurse Community Health; Admitting Provider Physician Assistant Medical; Emergency Provider Internal Medicine; Visit Provider Nurse Practitioner Acute Care
DX: T40.601A Poisoning by unspecified narcotics, accidental (unintentional), initial encounter (principal); G92.8 Other toxic encephalopathy; F11.13 Opioid abuse with withdrawal; N17.9 Acute kidney failure, unspecified; E87.2 Acidosis; N39.0 Urinary tract infection, site not specified; M62.82 Rhabdomyolysis; E87.1 Hypo-osmolality and hyponatremia; Z20.822 Contact with and (suspected) exposure to COVID-19; F31.9 Bipolar disorder, unspecified; E86.0 Dehydration; E11.42 Type 2 diabetes mellitus with diabetic polyneuropathy; G89.4 Chronic pain syndrome; I95.9 Hypotension, unspecified; F19.10 Other psychoactive substance abuse, uncomplicated; B96.20 Unspecified Escherichia coli [E. coli] as the cause of diseases classified elsewhere; E86.1 Hypovolemia; G40.909 Epilepsy, unspecified, not intractable, without status epilepticus; Z91.14 Patient's other noncompliance with medication regimen; Z88.2 Allergy status to sulfonamides; Z88.5 Allergy status to narcotic agent; Z88.8 Allergy status to other drugs, medicaments and biological substances; Z79.84 Long term (current) use of oral hypoglycemic drugs; Z79.899 Other long term (current) drug therapy
CPT/HCPCS: 0241U; 36415; 36600; 70450; 71045; 74176; 80048; 80053; 80076; 80143; 80178; 80179; 80307; 81001; 82040; 82077; 82140; 82550; 82803; 82947; 83605; 83690; 83735; 83880; 84100; 84484; 85025; 87040; 87086; 87088; 87147; 87186; 87205; 93005; 96361; 96365; 96367; 96375; 99285; 99291; C1758; J0610; J0696; J2060; J2405; J3475

== ENCOUNTER 2021-08-02 09:32 | Inpatient (IN) | payer MEDICARE, MEDICAID, SELFPAY ==
[2021-08-02] VITALS (11 sets, daily range): BP systolic 102–175; BP diastolic 41–75; PULSE 70–94; RESP 8–18; TEMP 35.5–36.9; O2SAT 93–99; BMI 41.7
--- NOTE | 2021-08-02 | ECG_ITS ---
Test Reason : overdose Blood Pressure : / mmHG Vent. Rate : 072 BPM Atrial Rate : 072 BPM P-R Int : 186 ms QRS Dur : 076 ms QT Int : 420 ms P-R-T Axes : 033 013 042 degrees QTc Int : 459 ms Normal sinus rhythm Septal infarct (cited on or before 15-JUL-2021) Abnormal ECG When compared with ECG of 15-JUL-2021 13:37, Questionable change in initial forces of Anteroseptal leads T wave amplitude has decreased in Lateral leads Referred By: Tong Bai Electronically Signed By:Jeffrey Harrington
--- NOTE | ~2021-08-02 | XR_ITS ---
EXAMINATION: XR CHEST CLINICAL INFORMATION: Tachypnea, foaming. Evaluate for pulmonary edema. COMPARISON: Multiple priors, most recent chest radiograph done earlier the same day. TECHNIQUE: Frontal view of the chest was obtained. FINDINGS: Minimal, patchy bibasilar airspace opacities which are slightly more prominent when compared to the chest radiograph done earlier the same day. Findings could represent atelectasis versus very early infiltrates. XR/XR chest 1V IMPRESSION: Minimal patchy bibasilar airspace opacities which are slightly more prominent when compared to the prior chest radiograph. Findings could represent atelectasis versus very early infiltrates.
--- NOTE | ~2021-08-02 | XR_ITS ---
EXAMINATION: XR CHEST CLINICAL INFORMATION: Change in mental status, rule out infiltrate COMPARISON: 07/17/2021 TECHNIQUE: Frontal view of the chest was obtained. FINDINGS: No convincing evidence for an acute process. Limitation from rotated film. No obvious failure or infiltrate. No effusion. The mediastinal contours are comparable given rotation. The cardiac silhouette is prominent but this is an AP study. XR/XR chest 1V IMPRESSION: No convincing evidence for an acute process
--- NOTE | ~2021-08-02 | XR_ITS ---
EXAMINATION: XR CHEST CLINICAL INFORMATION: Shortness of breath COMPARISON: Prior chest radiographs today at 5:45 PM and 11:32 AM TECHNIQUE: Frontal view of the chest was obtained. FINDINGS: On the current study, the lungs are better expanded. No significant patchy airspace disease is seen. At this time, no significant abnormality is noted involving the heart, lungs, mediastinum, bony thorax or soft tissues. XR/XR chest 1V IMPRESSION: No acute intrathoracic disease
--- NOTE | ~2021-08-02 | XR_ITS ---
EXAMINATION: XR CHEST CLINICAL INFORMATION: Fever. COMPARISON: Chest x-ray 08/02/2021 TECHNIQUE: Frontal portable view of the chest was obtained. 9:37 PM FINDINGS: No significant abnormality is noted involving the heart, lungs, mediastinum, bony thorax or soft tissues. XR/XR chest 1V IMPRESSION: Unremarkable examination.
--- NOTE | ~2021-08-02 | CT_ITS ---
EXAMINATION: CT HEAD WITHOUT CONTRAST CLINICAL INFORMATION: Change in mental status COMPARISON: 07/15/2021 TECHNIQUE: Contiguous axial imaging was performed from the skull base to vertex without intravenous administration of contrast. This CT examination was performed using dose optimization techniques as appropriate, variously including the following: *Automated exposure control *Adjustment of mA and/or kV according to patient size (this includes techniques or standardized protocols for targeted exams where dose is matched to indication/reason for exam; i.e. extremities or head) *Use of iterative reconstruction technique DLP: 836 mGy-cm FINDINGS: There is no midline shift. There is no mass effect. There is no hemorrhage. The basal cisterns appear patent. The posterior fossa is grossly within normal limits. There is no extra-axial collection. [place]-white matter is comparable to previous. Sinuses are grossly clear. CT/CT head/brain wo con IMPRESSION: No acute finding.
--- NOTE | 2021-08-02 09:39 | PC.NURSE ---
RN aware POC 341
--- NOTE | 2021-08-02 09:40 | ED_ITS ---
HPI - Altered Mental Status General Chief Complaint: Altered Mental Status Stated Complaint: UNRESPONSIVE,?OD,NARCAN GIVEN,PAINFUL STIM ONLY Time Seen by Provider: 08/02/21 09:39 Source: EMS Mode of arrival: EMS Limitations: altered mental status History of Present Illness HPI narrative: 56-year-old female who was brought to emergency department for evaluation of altered level of consciousness. The patient was found by her roommate unresponsive. The patient does have a history of polysubstance abuse and has h ad similar presentations in the past with altered level of consciousness. According to the paramedics initially found the patient with pinpoint pupils. The initially gave the patient intranasal Narcan 4 mg and then Narcan 4 mg IV with no change in the patient's mental status. In the emergency department the patient was also given intranasal Narcan 4 mg and Narcan 2 mg IV with no change in her mental status. The patient's roommate did tell ED nursing staff that he was concerned that the patient may have taken his medications. The the roommate takes baclofen, gabapentin and Lyrica. The patient was seen last at around 23:00 hours by her roommate. The patient was admitted on 07/15/2021 until 07/18/2021 for altered mental status. The patient's diagnosis with toxic metabolic encephalopathy. The discharge record states that the patient ?snorts heroin and Percocet on the street as well. Related Data Home Medications Medication Instructions Recorded Confirmed atorvastatin 20 mg tablet 20 mg PO BEDTIME 07/15/21 07/15/21 clonidine HCl 0.2 mg tablet 0.2 mg PO TID PRN 07/15/21 07/15/21 cyanocobalamin (vitamin B-12) 1,000 mcg PO DAILY 07/15/21 07/15/21 1,000 mcg tablet lisinopril 30 mg tablet 30 mg PO DAILY 07/15/21 07/15/21 lithium carbonate 150 mg capsule 150 mg PO DAILY 07/15/21 07/15/21 lorazepam 0.5 mg tablet 0.5 mg PO DAILY PRN 07/15/21 07/15/21 lurasidone 20 mg tablet (Latuda) 20 mg PO DAILY 07/15/21 07/15/21 metformin 1,000 mg tablet 1,000 mg PO BIDWMEAL 07/15/21 07/15/21 pregabalin 150 mg capsule 150 mg PO BID 07/15/21 07/15/21 quetiapine 200 mg tablet (Seroquel) 200 mg PO BEDTIME 07/15/21 07/15/21 sitagliptin 100 mg tablet (Januvia) 100 mg PO DAILY 07/15/21 07/15/21 Previous Rx's Medication Instructions Recorded cefuroxime axetil 500 mg tablet 500 mg PO BID #10 tab 07/18/21 Allergies Allergy/AdvReac Type Severity Reaction Status Date / Time morphine [MORPHINE] Allergy Unknown RASH, vomit Unverified 11/26/19 17:43 prednisone Allergy Unknown hives Verified 10/18/16 00:00 Sulfa (Sulfonamide Allergy Unknown UNKNOWN, Unverified 11/26/19 17:43 Antibiotics) hives [SULFA (SULFONAMIDE ANTIBIOTICS)] Review of Systems Review of Systems: Yes Unobtainable due to mental status [facility] Past Medical History Medical History Asthma Bipolar disorder Chronic pain Diabetes Hypertension IBS (irritable bowel syndrome) Peripheral neuropathy Polysubstance abuse Seizure Surgical History History of appendectomy Social History Social History Household Members: Other Housing: Unknown / Unable to assess Do you presently have visiting nurse or other home services: No Unable to assess alcohol history related to: Unknown Alcohol intake: current Patient Tobacco Use Status: Tobacco use Unknown Use of substances other than those prescribed or required for medical reasons: Yes Substance Use Type: Prescription Drugs Advance Directives: No Advance Directives Information Provided: No Patient : No service: No Current occupational status: disabled Physical Exam ED Vital Signs: Vital Signs - 24 hr 08/02/21 09:38 08/02/21 10:00 08/02/21 10:51 Temperature 95.9 F L Pulse Rate 72 94 70 Respiratory Rate 10 L 8 L 18 Blood Pressure 102/41 L 118/50 L 107/45 L Pulse Oximetry 96 94 97 08/02/21 11:51 Temperature 96.3 F L Pulse Rate 70 Respiratory Rate 10 L Blood Pressure 110/48 L Pulse Oximetry 96 BMI result Body Mass Index 41.7 Const Other: Obese female patient, breathing spontaneously, minimally responsive to painful stimuli [facility] Head: Yes normal to inspection, Yes normocephalic and Yes atraumatic Ears: external ears normal General nose exam: Normal external nose present Face and sinus: Yes normal facial exam Mouth: Normal oral and palatal mucosa present Throat: Yes posterior oropharynx normal Eyes General: appearance normal, both eyes and all related structures Neck Neck: Yes normal visual inspection, Yes no lymphadenopathy, Yes trachea midline and Yes supple Chest Chest palpation & inspection: normal inspection of the chest and normal palpation of entire chest wall Resp Effort & Inspection: normal respiratory effort and able to speak in complete sentences Auscultation: clear to auscultation bilaterally Cardio Rate: regular rate Rhythm: regular rhythm Heart sounds: S1 normal heart sound present, S2 normal heart sound present and no murmurs GI Inspection: Yes normal to inspection Palpation (GI): Soft to palpation, nontender and no guarding Auscultation: normal bowel sounds General: Yes no CVA tenderness Back/Spine/Pelvis Back: no CVA tenderness Skin General skin exam: no rashes or lesions noted Neuro Other: Somnolent female, minimally responsive to painful stimuli Extrem General: Yes normal to inspection Course Course Course Narrative: 56-year-old female with history polysubstance abuse, known to use intranasal heroin and Percocet that she buys from the street who was last seen by her roommate at 23:00 hours yesterday and was found unresponsive this morning by her roommate just prior to being transported to the emergency department. The patient was reported to have pinpoint pupils by the paramedics but the patient did not respond to high doses Narcan intranasal and IV given by the paramedics and get in here in the emergency department. Initial vital signs revealed a blood pressure of 107/95 and a temperature of 95.9 degrees lose F. the patient is breathing spontaneously, she has had a normal O2 saturation and a good end- tidal CO2. I did order laboratory evaluation and CT scan of the brain. 1140: Laboratory evaluation: WBC elevated 13,700, potassium elevated 5.6, bicarb low 18, glucose elevated 415. Urine tox screen was negative. Alcohol was below detectable limits. Acetaminophen and salicylate below detectable limits. CK was only 211. Urinalysis was negative. COVID-19 and influenza were negative. 1302: ABG on room air revealed a pH of 7.30, pCO2 37, PO2 90, which is reassuring. I did discuss the patient with the covering sharepoint designer developer and he felt that the patient can go to the intensive care unit on the hospital service. T herefore I will discuss admission with the covering hospitalist. 1331: Did discuss the patient with the covering hospitalist, Dr. Grimaldo. This institution I will check a point of care glucose to see if the glucose came down after receiving 2 L of normal saline. Patient's lactic acid is elevated at 3.7 but this is not related to an infectious process. the patient will be admitted to [facility] for further management. MDM - Altered Mental Status Medical Records Attestation: I reviewed the patient's medical records. Lab Data Attestation: I reviewed the patient's lab results. Result diagrams: 08/02/21 12:31 08/02/21 10:05 Labs: Lab Results 08/02/21 08/02/21 08/02/21 Range/Units 09:38 10:05 10:05 WBC (4.8-10.8) X10*3/uL RBC (4.20-5.50) X10*6/uL Hgb (12.0-16.0) g/dl Hct (37.0-47.0) % MCV (80.0-98.0) fL MCH (27.0-33.0) pg MCHC (31.0-35.0) g/dl RDW (11.0-16.0) % Plt Count (160-400) X10*3/uL MPV (9.4-12.3) fL Immature Gran % (Auto) (0.0-0.4) % Neut % (Auto) (45-73) % Lymph % (Auto) (20-40) % [place] % (Auto) (2-11) % Eos % (Auto) (0-4) % Baso % (Auto) (0-2) % Lymph # (Auto) (1.2-4.9) X10*3/uL [place] # (Auto) (0.1-1.2) X10*3/uL Eos # (Auto) (0.0-0.4) X10*3/uL Baso # (Auto) (0.0-0.2) X10*3/uL Abs Immat Gran (auto) (0.00-0.03) X10*3/uL Absolute Neuts (auto) (2.0-8.3) x10*3/uL Absolute Nucleated RBC (0.0-0.012) X10*3/uL Nucleated RBC % (auto) (0.0-0.2) /100WBC PT (9.9-13.0) SEC INR (0.9-1.1) APTT (24.1-38.0) SEC O2 Saturation % ABG pH at Pt Temp (7.35-7.45) ABG pCO2 at Pt Temp (32-45) mmHg ABG pO2 at Pt Temp (83-108) mmHg ABG HCO3 (22-26) mmol/L ABG Base Excess (Actual) mmol/L Sodium 138 (135-145) mmol/L Potassium 5.6 H D (3.3-5.1) mmol/L Chloride 109 H (96-108) mmol/L Carbon Dioxide 18 L (22-29) mmol/L Anion Gap 17 (12-20) BUN 20 H (9-16) mg/dL Creatinine 1.16 (0.5-1.4) mg/dL Estim Creat Clear Calc 55.8 Estimated GFR 48 POC Glucose 341 H (60-115) mg/dL Random Glucose 415 H* (60-115) mg/dL Lactic Acid (0.5-2.0) mmol/L Calcium 8.5 D (8.4-10.2) mg/dL Total Bilirubin 0.2 (0.0-1.0) mg/dL AST 20 (5-31) U/L ALT 15 (0-31) U/L Alkaline Phosphatase 107 (39-117) U/L Total Creatine Kinase 211 H D (26-140) U/L Troponin I High Sens (<3.5-17.0) ng/L Total Protein 6.5 (6.5-8.0) g/dL Albumin 3.4 L (3.5-5.0) g/dL Lipase 29 (8-78) U/L Urine Color Urine Appearance Urine pH (5.0-8.0) Ur Specific [place] (1.005-1.025) Urine Protein (NEG-TRACE) MG/DL Urine Glucose (UA) (NEG) MG/DL Urine Ketones (NEG) MG/DL Urine Blood (NEG) Urine Nitrite (NEG) Ur Leukocyte Esterase (NEG) Urine RBC (0) /HPF Urine WBC (0-4) /HPF Ur Squamous Epith Cells /LPF Urine Bacteria /LPF Urine Mucus /LPF Salicylates < 5.0 L (15-30) mg/dL Urine Opiates Screen (Not Detect) Urine Fentanyl Screen (Not Detect) Acetaminophen < 1 (<30) mcg/mL Ur Barbiturates Screen (Not Detect) Ur Phencyclidine Scrn (Not Detect) Ur Amphetamines Screen (Not Detect) U Benzodiazepines Scrn (Not Detect) [place] (0.60-1.20) mmol/L Urine Cocaine Screen (Not Detect) U Marijuana (THC) Screen (Not Detect) Ethyl Alcohol < 10 mg/dL COVID-19 (MARLYS) (Negative) COVID-19 Clin Com Influenza Type A ([place]) (Negative) Influenza Type B ([place]) (Negative) Influenza A & B Note 08/02/21 08/02/21 08/02/21 Range/Units 10:05 10:05 10:20 WBC (4.8-10.8) X10*3/uL RBC (4.20-5.50) X10*6/uL Hgb (12.0-16.0) g/dl Hct (37.0-47.0) % MCV (80.0-98.0) fL MCH (27.0-33.0) pg MCHC (31.0-35.0) g/dl RDW (11.0-16.0) % Plt Count (160-400) X10*3/uL MPV (9.4-12.3) fL Immature Gran % (Auto) (0.0-0.4) % Neut % (Auto) (45-73) % Lymph % (Auto) (20-40) % [place] % (Auto) (2-11) % Eos % (Auto) (0-4) % Baso % (Auto) (0-2) % Lymph # (Auto) (1.2-4.9) X10*3/uL [place] # (Auto) (0.1-1.2) X10*3/uL Eos # (Auto) (0.0-0.4) X10*3/uL Baso # (Auto) (0.0-0.2) X10*3/uL Abs Immat Gran (auto) (0.00-0.03) X10*3/uL Absolute Neuts (auto) (2.0-8.3) x10*3/uL Absolute Nucleated RBC (0.0-0.012) X10*3/uL Nucleated RBC % (auto) (0.0-0.2) /100WBC PT 9.5 L (9.9-13.0) SEC INR 0.8 L (0.9-1.1) APTT 34.3 (24.1-38.0) SEC O2 Saturation % ABG pH at Pt Temp (7.35-7.45) ABG pCO2 at Pt Temp (32-45) mmHg ABG pO2 at Pt Temp (83-108) mmHg ABG HCO3 (22-26) mmol/L ABG Base Excess (Actual) mmol/L Sodium (135-145) mmol/L Potassium (3.3-5.1) mmol/L Chloride (96-108) mmol/L Carbon Dioxide (22-29) mmol/L Anion Gap (12-20) BUN (9-16) mg/dL Creatinine (0.5-1.4) mg/dL Estim Creat Clear Calc Estimated GFR POC Glucose (60-115) mg/dL Random Glucose (60-115) mg/dL Lactic Acid (0.5-2.0) mmol/L Calcium (8.4-10.2) mg/dL Total Bilirubin (0.0-1.0) mg/dL AST (5-31) U/L ALT (0-31) U/L Alkaline Phosphatase (39-117) U/L Total Creatine Kinase (26-140) U/L Troponin I High Sens < 3.5 (<3.5-17.0) ng/L Total Protein (6.5-8.0) g/dL Albumin (3.5-5.0) g/dL Lipase (8-78) U/L Urine Color Urine Appearance Urine pH (5.0-8.0) Ur Specific [place] (1.005-1.025) Urine Protein (NEG-TRACE) MG/DL Urine Glucose (UA) (NEG) MG/DL Urine Ketones (NEG) MG/DL Urine Blood (NEG) Urine Nitrite (NEG) Ur Leukocyte Esterase (NEG) Urine RBC (0) /HPF Urine WBC (0-4) /HPF Ur Squamous Epith Cells /LPF Urine Bacteria /LPF Urine Mucus /LPF Salicylates (15-30) mg/dL Urine Opiates Screen (Not Detect) Urine Fentanyl Screen (Not Detect) Acetaminophen (<30) mcg/mL Ur Barbiturates Screen (Not Detect) Ur Phencyclidine Scrn (Not Detect) Ur Amphetamines Screen (Not Detect) U Benzodiazepines Scrn (Not Detect) [place] (0.60-1.20) mmol/L Urine Cocaine Screen (Not Detect) U Marijuana (THC) Screen (Not Detect) Ethyl Alcohol mg/dL COVID-19 (MARLYS) (Negative) COVID-19 Clin Com Influenza Type A ([place]) Negative (Negative) Influenza Type B ([place]) Negative (Negative) Influenza A & B Note See Note 08/02/21 08/02/21 08/02/21 Range/Units 10:20 10:20 10:20 WBC (4.8-10.8) X10*3/uL RBC (4.20-5.50) X10*6/uL Hgb (12.0-16.0) g/dl Hct (37.0-47.0) % MCV (80.0-98.0) fL MCH (27.0-33.0) pg MCHC (31.0-35.0) g/dl RDW (11.0-16.0) % Plt Count (160-400) X10*3/uL MPV (9.4-12.3) fL Immature Gran % (Auto) (0.0-0.4) % Neut % (Auto) (45-73) % Lymph % (Auto) (20-40) % [place] % (Auto) (2-11) % Eos % (Auto) (0-4) % Baso % (Auto) (0-2) % Lymph # (Auto) (1.2-4.9) X10*3/uL [place] # (Auto) (0.1-1.2) X10*3/uL Eos # (Auto) (0.0-0.4) X10*3/uL Baso # (Auto) (0.0-0.2) X10*3/uL Abs Immat Gran (auto) (0.00-0.03) X10*3/uL Absolute Neuts (auto) (2.0-8.3) x10*3/uL Absolute Nucleated RBC (0.0-0.012) X10*3/uL Nucleated RBC % (auto) (0.0-0.2) /100WBC PT (9.9-13.0) SEC INR (0.9-1.1) APTT (24.1-38.0) SEC O2 Saturation % ABG pH at Pt Temp (7.35-7.45) ABG pCO2 at Pt Temp (32-45) mmHg ABG pO2 at Pt Temp (83-108) mmHg ABG HCO3 (22-26) mmol/L ABG Base Excess (Actual) mmol/L Sodium (135-145) mmol/L Potassium (3.3-5.1) mmol/L Chloride (96-108) mmol/L Carbon Dioxide (22-29) mmol/L Anion Gap (12-20) BUN (9-16) mg/dL Creatinine (0.5-1.4) mg/dL Estim Creat Clear Calc Estimated GFR POC Glucose (60-115) mg/dL Random Glucose (60-115) mg/dL Lactic Acid (0.5-2.0) mmol/L Calcium (8.4-10.2) mg/dL Total Bilirubin (0.0-1.0) mg/dL AST (5-31) U/L ALT (0-31) U/L Alkaline Phosphatase (39-117) U/L Total Creatine Kinase (26-140) U/L Troponin I High Sens (<3.5-17.0) ng/L Total Protein (6.5-8.0) g/dL Albumin (3.5-5.0) g/dL Lipase (8-78) U/L Urine Color STRAW Urine Appearance CLEAR Urine pH 5.5 (5.0-8.0) Ur Specific [place] 1.010 (1.005-1.025) Urine Protein NEG (NEG-TRACE) MG/DL Urine Glucose (UA) >=1000 H (NEG) MG/DL Urine Ketones NEG (NEG) MG/DL Urine Blood NEG (NEG) Urine Nitrite NEG (NEG) Ur Leukocyte Esterase NEG (NEG) Urine RBC 0-2 (0) /HPF Urine WBC 0-2 (0-4) /HPF Ur Squamous Epith Cells TRACE /LPF Urine Bacteria NONE /LPF Urine Mucus TRACE /LPF Salicylates (15-30) mg/dL Urine Opiates Screen Not Detected (Not Detect) Urine Fentanyl Screen Not Detected (Not Detect) Acetaminophen (<30) mcg/mL Ur Barbiturates Screen Not Detected (Not Detect) Ur Phencyclidine Scrn Not Detected (Not Detect) Ur Amphetamines Screen Not Detected (Not Detect) U Benzodiazepines Scrn Not Detected (Not Detect) [place] (0.60-1.20) mmol/L Urine Cocaine Screen Not Detected (Not Detect) U Marijuana (THC) Screen Not Detected (Not Detect) Ethyl Alcohol mg/dL COVID-19 (MARLYS) Negative (Negative) COVID-19 Clin Com See Note Influenza Type A ([place]) (Negative) Influenza Type B ([place]) (Negative) Influenza A & B Note 08/02/21 08/02/21 08/02/21 Range/Units 12:31 12:31 12:31 WBC 13.7 H (4.8-10.8) X10*3/uL RBC 4.01 L (4.20-5.50) X10*6/uL Hgb 11.6 L (12.0-16.0) g/dl Hct 35.2 L (37.0-47.0) % MCV 87.8 (80.0-98.0) fL MCH 28.9 (27.0-33.0) pg MCHC 33.0 (31.0-35.0) g/dl RDW 15.6 (11.0-16.0) % Plt Count 204 D (160-400) X10*3/uL MPV 11.9 (9.4-12.3) fL Immature Gran % (Auto) 0.4 (0.0-0.4) % Neut % (Auto) 81.8 H (45-73) % Lymph % (Auto) 13.3 L (20-40) % [place] % (Auto) 3.9 (2-11) % Eos % (Auto) 0.2 (0-4) % Baso % (Auto) 0.4 (0-2) % Lymph # (Auto) 1.8 (1.2-4.9) X10*3/uL [place] # (Auto) 0.5 (0.1-1.2) X10*3/uL Eos # (Auto) 0.0 (0.0-0.4) X10*3/uL Baso # (Auto) 0.1 (0.0-0.2) X10*3/uL Abs Immat Gran (auto) 0.05 H (0.00-0.03) X10*3/uL Absolute Neuts (auto) 11.2 H (2.0-8.3) x10*3/uL Absolute Nucleated RBC 0.000 (0.0-0.012) X10*3/uL Nucleated RBC % (auto) 0.0 (0.0-0.2) /100WBC PT (9.9-13.0) SEC INR (0.9-1.1) APTT (24.1-38.0) SEC O2 Saturation % ABG pH at Pt Temp (7.35-7.45) ABG pCO2 at Pt Temp (32-45) mmHg ABG pO2 at Pt Temp (83-108) mmHg ABG HCO3 (22-26) mmol/L ABG Base Excess (Actual) mmol/L Sodium (135-145) mmol/L Potassium (3.3-5.1) mmol/L Chloride (96-108) mmol/L Carbon Dioxide (22-29) mmol/L Anion Gap (12-20) BUN (9-16) mg/dL Creatinine (0.5-1.4) mg/dL Estim Creat Clear Calc Estimated GFR POC Glucose (60-115) mg/dL Random Glucose (60-115) mg/dL Lactic Acid 3.7 H* (0.5-2.0) mmol/L Calcium (8.4-10.2) mg/dL Total Bilirubin (0.0-1.0) mg/dL AST (5-31) U/L ALT (0-31) U/L Alkaline Phosphatase (39-117) U/L Total Creatine Kinase (26-140) U/L Troponin I High Sens (<3.5-17.0) ng/L Total Protein (6.5-8.0) g/dL Albumin (3.5-5.0) g/dL Lipase (8-78) U/L Urine Color Urine Appearance Urine pH (5.0-8.0) Ur Specific [place] (1.005-1.025) Urine Protein (NEG-TRACE) MG/DL Urine Glucose (UA) (NEG) MG/DL Urine Ketones (NEG) MG/DL Urine Blood (NEG) Urine Nitrite (NEG) Ur Leukocyte Esterase (NEG) Urine RBC (0) /HPF Urine WBC (0-4) /HPF Ur Squamous Epith Cells /LPF Urine Bacteria /LPF Urine Mucus /LPF Salicylates (15-30) mg/dL Urine Opiates Screen (Not Detect) Urine Fentanyl Screen (Not Detect) Acetaminophen (<30) mcg/mL Ur Barbiturates Screen (Not Detect) Ur Phencyclidine Scrn (Not Detect) Ur Amphetamines Screen (Not Detect) U Benzodiazepines Scrn (Not Detect) [place] 0.21 L (0.60-1.20) mmol/L Urine Cocaine Screen (Not Detect) U Marijuana (THC) Screen (Not Detect) Ethyl Alcohol mg/dL COVID-19 (MARLYS) (Negative) COVID-19 Clin Com Influenza Type A ([place]) (Negative) Influenza Type B ([place]) (Negative) Influenza A & B Note 08/02/21 Range/Units 12:46 WBC (4.8-10.8) X10*3/uL RBC (4.20-5.50) X10*6/uL Hgb (12.0-16.0) g/dl Hct (37.0-47.0) % MCV (80.0-98.0) fL MCH (27.0-33.0) pg MCHC (31.0-35.0) g/dl RDW (11.0-16.0) % Plt Count (160-400) X10*3/uL MPV (9.4-12.3) fL Immature Gran % (Auto) (0.0-0.4) % Neut % (Auto) (45-73) % Lymph % (Auto) (20-40) % [place] % (Auto) (2-11) % Eos % (Auto) (0-4) % Baso % (Auto) (0-2) % Lymph # (Auto) (1.2-4.9) X10*3/uL [place] # (Auto) (0.1-1.2) X10*3/uL Eos # (Auto) (0.0-0.4) X10*3/uL Baso # (Auto) (0.0-0.2) X10*3/uL Abs Immat Gran (auto) (0.00-0.03) X10*3/uL Absolute Neuts (auto) (2.0-8.3) x10*3/uL Absolute Nucleated RBC (0.0-0.012) X10*3/uL Nucleated RBC % (auto) (0.0-0.2) /100WBC PT (9.9-13.0) SEC INR (0.9-1.1) APTT (24.1-38.0) SEC O2 Saturation 96.0 % ABG pH at Pt Temp 7.30 L (7.35-7.45) ABG pCO2 at Pt Temp 37 (32-45) mmHg ABG pO2 at Pt Temp 90 (83-108) mmHg ABG HCO3 18 L (22-26) mmol/L ABG Base Excess (Actual) -6.8 mmol/L Sodium (135-145) mmol/L Potassium (3.3-5.1) mmol/L Chloride (96-108) mmol/L Carbon Dioxide (22-29) mmol/L Anion Gap (12-20) BUN (9-16) mg/dL Creatinine (0.5-1.4) mg/dL Estim Creat Clear Calc Estimated GFR POC Glucose (60-115) mg/dL Random Glucose (60-115) mg/dL Lactic Acid (0.5-2.0) mmol/L Calcium (8.4-10.2) mg/dL Total Bilirubin (0.0-1.0) mg/dL AST (5-31) U/L ALT (0-31) U/L Alkaline Phosphatase (39-117) U/L Total Creatine Kinase (26-140) U/L Troponin I High Sens (<3.5-17.0) ng/L Total Protein (6.5-8.0) g/dL Albumin (3.5-5.0) g/dL Lipase (8-78) U/L Urine Color Urine Appearance Urine pH (5.0-8.0) Ur Specific [place] (1.005-1.025) Urine Protein (NEG-TRACE) MG/DL Urine Glucose (UA) (NEG) MG/DL Urine Ketones (NEG) MG/DL Urine Blood (NEG) Urine Nitrite (NEG) Ur Leukocyte Esterase (NEG) Urine RBC (0) /HPF Urine WBC (0-4) /HPF Ur Squamous Epith Cells /LPF Urine Bacteria /LPF Urine Mucus /LPF Salicylates (15-30) mg/dL Urine Opiates Screen (Not Detect) Urine Fentanyl Screen (Not Detect) Acetaminophen (<30) mcg/mL Ur Barbiturates Screen (Not Detect) Ur Phencyclidine Scrn (Not Detect) Ur Amphetamines Screen (Not Detect) U Benzodiazepines Scrn (Not Detect) [place] (0.60-1.20) mmol/L Urine Cocaine Screen (Not Detect) U Marijuana (THC) Screen (Not Detect) Ethyl Alcohol mg/dL COVID-19 (MARLYS) (Negative) COVID-19 Clin Com Influenza Type A ([place]) (Negative) Influenza Type B ([place]) (Negative) Influenza A & B Note ECG Data ECG #1: Interpretation: 0936: Normal sinus rhythm with a rate of 72, normal TX interval, QRS duration QTC interval, Q-wave lead 3, poor R-wave progression V1 through V3, no ST segment elevation, no ST segment depression compared to EKG dated 07/15/2021, Q- wave in lead his new, poor R-wave progression is old. Critical Care Time Critical Care Time Total Critical Care Time: 60 Attestation: Critical Care: The patient was critically ill with a high probability of imminent or life threatening deterioration. I spent greater than 30 minutes of discontinuous time evaluating the patient,delivering critical care at the bedside, discussing and evaluating pertinent data with consultants. Critical care time does not include time spent performing separately billable procedures or teaching. Total time spent performing critical care was 60 minutes. Discharge Plan Discharge Clinical Impression: Acute alteration in mental status, Overdose, Acute hyperglycemia Patient Disposition: Admitted As Inpatient Prescriptions: No Action pregabalin 150 mg Capsule 150 mg PO BID 0RF quetiapine [Seroquel] 200 mg Tablet 200 mg PO BEDTIME 0RF lithium carbonate 150 mg Capsule 150 mg PO DAILY 0RF clonidine HCl 0.2 mg Tablet 0.2 mg PO TID PRN (Reason: Anxiety) 0RF lorazepam 0.5 mg Tablet 0.5 mg PO DAILY PRN (Reason: Anxiety) 0RF Latuda 20 mg Tablet 20 mg PO DAILY 0RF Rx Instructions: must administer with food (at least 350 calories) cyanocobalamin (vitamin B-12) 1,000 mcg Tablet 1,000 mcg PO DAILY 0RF atorvastatin 20 mg Tablet 20 mg PO BEDTIME 0RF metformin 1,000 mg Tablet 1,000 mg PO BIDWMEAL 0RF Januvia 100 mg Tablet 100 mg PO DAILY 0RF lisinopril 30 mg Tablet 30 mg PO DAILY 0RF cefuroxime axetil 500 mg tablet 500 mg PO BID Qty: 10 0RF
[2021-08-02 09:42] LABS: Glucose, Whole Blood 341 mg/dL (60-115)
[2021-08-02] MEDS: 0.9 % Sodium Chloride 1,000 ML 999 ML IV ×2 (09:48→10:21)
[2021-08-02] MEDS: Naloxone HCl 2 MG/2 ML SYRINGE IVPUSH (09:48)
--- NOTE | 2021-08-02 10:24 | PC.NURSE ---
Difficult stick for blood. IV by ems flowing well.
[2021-08-02 10:31] LABS: Ethanol < 10 mg/dL
[2021-08-02 10:32] LABS: INTERNATIONAL NORM RATIO 0.8 (0.9-1.1); Prothrombin Time 9.5 SEC (9.9-13.0)
[2021-08-02 10:32] LABS: Appearance Urine CLEAR; Color Urine STRAW; Glucose Urine UA >=1000 MG/DL (NEG); Leukocyte Esterase Urine NEG (NEG); Nitrite Urine NEG (NEG); PH 5.5 (5.0-8.0); Urine Blood NEG (NEG); Urine Ketones NEG (NEG); Urine Protein NEG (NEG-TRACE)
[2021-08-02 10:34] LABS: Troponin-I High Sensitivity < 3.5 ng/L (<3.5-17.0)
[2021-08-02 10:35] LABS: Partial Thromboplastin Time 34.3 SEC (24.1-38.0)
[2021-08-02 10:43] LABS: Mucus Urine TRACE /LPF; RBC Urine 0-2 /HPF (0); Squamous Epithelial Cell Urine TRACE /LPF; WBC Urine 0-2 /HPF (0-4)
[2021-08-02 10:49] LABS: COVID-19 Test Negative (Negative)
[2021-08-02 10:51] LABS: IDNOW Serial# 9DD0AD1C; Influenza A Negative (Negative); Influenza B2 Negative (Negative)
[2021-08-02 10:52] LABS: Alanine Aminotransferase 15 U/L (0-31); Albumin Level 3.4 g/dL (3.5-5.0); Alkaline Phosphatase 107 U/L (39-117); Anion Gap 17 (12-20); Aspartate Amino Transferase 20 U/L (5-31); Bilirubin Total 0.2 mg/dL (0.0-1.0); Blood Urea Nitrogen 20 mg/dL (9-16); Calcium 8.5 mg/dL (8.4-10.2); Carbon Dioxide 18 mmol/L (22-29); Chloride 109 mmol/L (96-108); Creatinine Clr Calc Pharmacy 55.8; Estimated Glomerular Filt Rate 48; Glucose Random 415 mg/dL (60-115); Lipase 29 U/L (8-78); Potassium 5.6 mmol/L (3.3-5.1); Sodium 138 mmol/L (135-145); Total Protein 6.5 g/dL (6.5-8.0)
[2021-08-02 10:54] LABS: Amphetamine Screen Urine Not Detected (Not Detect); Barbiturates, Urine Not Detected (Not Detect); Benzodiazepines Screen Urine Not Detected (Not Detect); Cannabinoid Screen Urine Not Detected (Not Detect); Cocaine Screen Urine Not Detected (Not Detect); Fentanyl, urine Not Detected (Not Detect); Opiate Screen Urine Not Detected (Not Detect); Phencyclidine Screen Urine Not Detected (Not Detect)
[2021-08-02 10:58] LABS: Acetaminophen LAB < 1 mcg/mL (<30); Salicylate < 5.0 mg/dL (15-30)
--- NOTE | 2021-08-02 11:07 | PC.NURSE ---
contact to [facility] x 2. Per will: will send someone when staff becomes available. Will call back around noon if no tech has drawn.
--- NOTE | 2021-08-02 11:52 | PC.NURSE ---
proxy/roommate Jaxson Walton [phone], Per Jaxson: he came to patient's home today to medicate pt. Found her altered. Unresponive. ? at this time Pt may have taken Jaxson's Lyrica, Gabapentin, or Baclophen. Pt's home meds are not kept in secure location. And are Hidden under desk because [pt] can't get there.
[2021-08-02 12:37] LABS: Basophils Absolute Auto 0.1 X10*3/uL (0.0-0.2); Basophils Percent Auto 0.4 % (0-2); Eosinophils Percent Auto 0.2 % (0-4); Hematocrit 35.2 % (37.0-47.0); Hemoglobin 11.6 g/dl (12.0-16.0); Imm Gran Abs Auto 0.05 X10*3/uL (0.00-0.03); Imm Gran Pct Auto 0.4 % (0.0-0.4); Lymphocytes Absolute Auto 1.8 X10*3/uL (1.2-4.9); Lymphocytes Percent Auto 13.3 % (20-40); MANUAL DIFF FLAG NO; Mean Corpuscular Hemoglobin 28.9 pg (27.0-33.0); Mean Corpuscular Volume 87.8 fL (80.0-98.0); Mean Platelet Volume 11.9 fL (9.4-12.3); Monocytes Absolute Auto 0.5 X10*3/uL (0.1-1.2); Monocytes Percent Auto 3.9 % (2-11); Neutrophils Absolute Auto 11.2 x10*3/uL (2.0-8.3); Neutrophils Percent Auto 81.8 % (45-73); Platelet Count 204 X10*3/uL (160-400); Red Blood Count 4.01 X10*6/uL (4.20-5.50); Red Cell Distribution Width 15.6 % (11.0-16.0); White Blood Count 13.7 X10*3/uL (4.8-10.8)
[2021-08-02 12:55] LABS: Lithium 0.21 mmol/L (0.60-1.20)
[2021-08-02 12:57] LABS: ABG Base Excess -6.8 mmol/L; ABG HCO3 18 mmol/L (22-26); ABG pCO2 37 mmHg (32-45); ABG pO2 90 mmHg (83-108)
[2021-08-02 13:02] LABS: ABG Refer to POC result
[2021-08-02 13:07] LABS: Lactic Acid 3.7 mmol/L (0.5-2.0)
[2021-08-02 13:37] LABS: Glucose, Whole Blood 307 mg/dL (60-115)
--- NOTE | 2021-08-02 13:53 | P.HPHOSP_ITS ---
History of Present Illness Date of Service: 08/02/21 Chief Complaint: ams history obtained from ED provider (patient obtunded) 56F was brought to the emergency department by EMS for altered mental status. Patient was found by her roommate to be unresponsive. Patient history of substance ins abuse, reported to have been using intranasal heroin (though current tox screen is negative). Paramedics found patient to have pinpoint pupils, they administered Narcan 4 mg intranasally and then 4 mg IV with no change in mental status. Patient's roommate was concerned that the patient may have taken some of his own medications which includes baclofen, gabapentin, Lyrica. Patient has recent admission earlier in July 2021 for similar presentation. Exact etiology was not determined at that time. In ED patient was given additional Narcan with no change in mental status. Review of Systems Review of Systems: Yes Unobtainable due to mental condition PMFSH Medical History Asthma Bipolar disorder Chronic pain Diabetes Hypertension IBS (irritable bowel syndrome) Peripheral neuropathy Polysubstance abuse Seizure Pertinent family history: unable to obtain due to mental status Surgical History History of appendectomy Social History Household Members: Other Housing: Unknown / Unable to assess Do you presently have visiting nurse or other home services: No Unable to assess alcohol history related to: Unknown Alcohol intake: current Patient Tobacco Use Status: Tobacco use Unknown Use of substances other than those prescribed or required for medical reasons: Yes Substance Use Type: Prescription Drugs Advance Directives: No Advance Directives Information Provided: No Patient : No service: No Current occupational status: disabled Meds Allergies Allergy/AdvReac Type Severity Reaction Status Date / Time morphine [MORPHINE] Allergy Unknown RASH, vomit Unverified 11/26/19 17:43 prednisone Allergy Unknown hives Verified 10/18/16 00:00 Sulfa (Sulfonamide Allergy Unknown UNKNOWN, Unverified 11/26/19 17:43 Antibiotics) hives [SULFA (SULFONAMIDE ANTIBIOTICS)] Active Medications: Current Medications Dextrose (Dextrose 50 % 25 Gm/50 Ml Syringe) 25 gm IVPUSH Q15M PRN; Protocol PRN Reason: per Hypoglycemia Standing Ord. Glucose (Glucose Gel 15 Gm Gel..Gram.) 15 gm PO Q15M PRN; Protocol PRN Reason: per Hypoglycemia Standing Ord. Insulin Human Lispro (Insulin Lispro 100 Unit/Ml 3 Ml Vial) 0 unit SUBCUT Q6H [facility]; Protocol Pharmacy Consult (Consult Rx Perform Med Rec) 1 each MISCELLANE ONCE PRN PRN Reason: Consult order Home Medications Medication Instructions Recorded Confirmed Last Taken Type atorvastatin 20 mg tablet 20 mg PO BEDTIME 07/15/21 07/15/21 Unknown History clonidine HCl 0.2 mg tablet 0.2 mg PO TID PRN 07/15/21 07/15/21 Unknown History cyanocobalamin (vitamin B-12) 1,000 mcg PO DAILY 07/15/21 07/15/21 Unknown History 1,000 mcg tablet lisinopril 30 mg tablet 30 mg PO DAILY 07/15/21 07/15/21 Unknown History lithium carbonate 150 mg capsule 150 mg PO DAILY 07/15/21 07/15/21 Unknown History lorazepam 0.5 mg tablet 0.5 mg PO DAILY PRN 07/15/21 07/15/21 Unknown History lurasidone 20 mg tablet (Latuda) 20 mg PO DAILY 07/15/21 07/15/21 Unknown History metformin 1,000 mg tablet 1,000 mg PO BIDWMEAL 07/15/21 07/15/21 Unknown History pregabalin 150 mg capsule 150 mg PO BID 07/15/21 07/15/21 Unknown History quetiapine 200 mg tablet (Seroquel) 200 mg PO BEDTIME 07/15/21 07/15/21 Unknown History sitagliptin 100 mg tablet (Januvia) 100 mg PO DAILY 07/15/21 07/15/21 Unknown History lurasidone 120 mg tablet (Latuda) 1 tab PO DAILY 08/02/21 Unknown History prazosin 1 mg capsule 1 cap PO BEDTIME 08/02/21 Unknown History Physical Exam Vital Signs and Narrative: Vital Signs: Last Vital Signs Temp 96.3 F L 08/02/21 11:51 Pulse 73 08/02/21 13:34 Resp 12 08/02/21 13:34 BP 107/49 L 08/02/21 13:34 Pulse Ox 99 08/02/21 13:34 BMI result Body Mass Index 41.7 General: obtunded, grimaces to deep stimulation HEENT: atraumatic Neck: normal to visual inspection CVS: S1, S2, RRR Resp: rales bilateral Chest: non tender GI: soft, non tender, non distended : no CVA tenderness Skin: no rashes Extremities: no edema Neuro: Obtunded Psych: obtunded Results Labs CBC and Chem 7: 08/02/21 12:31 08/02/21 10:05 Labs: Laboratory Results - last 24 hr 08/02/21 08/02/21 08/02/21 09:38 10:05 10:05 MCV MCH MCHC RDW Plt Count MPV Immature Gran % (Auto) Neut % (Auto) Lymph % (Auto) [place] % (Auto) Eos % (Auto) Baso % (Auto) Lymph # (Auto) [place] # (Auto) Eos # (Auto) Baso # (Auto) Abs Immat Gran (auto) Absolute Neuts (auto) Absolute Nucleated RBC Nucleated RBC % (auto) PT INR APTT O2 Saturation ABG pH at Pt Temp ABG pCO2 at Pt Temp ABG pO2 at Pt Temp ABG HCO3 ABG Base Excess (Actual) Anion Gap 17 Estim Creat Clear Calc 55.8 Estimated GFR 48 POC Glucose 341 H Random Glucose 415 H* Lactic Acid Calcium 8.5 D Total Bilirubin 0.2 AST 20 ALT 15 Alkaline Phosphatase 107 Total Creatine Kinase 211 H D Troponin I High Sens Total Protein 6.5 Albumin 3.4 L Lipase 29 Urine Color Urine Appearance Urine pH Ur Specific [place] Urine Protein Urine Glucose (UA) Urine Ketones Urine Blood Urine Nitrite Ur Leukocyte Esterase Urine RBC Urine WBC Ur Squamous Epith Cells Urine Bacteria Urine Mucus Salicylates < 5.0 L Urine Opiates Screen Urine Fentanyl Screen Acetaminophen < 1 Ur Barbiturates Screen Ur Phencyclidine Scrn Ur Amphetamines Screen U Benzodiazepines Scrn [place] Urine Cocaine Screen U Marijuana (THC) Screen Ethyl Alcohol < 10 COVID-19 ([facility]) COVID-19 Clin Com Influenza Type A ([place]) Influenza Type B ([place]) Influenza A & B Note 08/02/21 08/02/21 08/02/21 10:05 10:05 10:20 MCV MCH MCHC RDW Plt Count MPV Immature Gran % (Auto) Neut % (Auto) Lymph % (Auto) [place] % (Auto) Eos % (Auto) Baso % (Auto) Lymph # (Auto) [place] # (Auto) Eos # (Auto) Baso # (Auto) Abs Immat Gran (auto) Absolute Neuts (auto) Absolute Nucleated RBC Nucleated RBC % (auto) PT 9.5 L INR 0.8 L APTT 34.3 O2 Saturation ABG pH at Pt Temp ABG pCO2 at Pt Temp ABG pO2 at Pt Temp ABG HCO3 ABG Base Excess (Actual) Anion Gap Estim Creat Clear Calc Estimated GFR POC Glucose Random Glucose Lactic Acid Calcium Total Bilirubin AST ALT Alkaline Phosphatase Total Creatine Kinase Troponin I High Sens < 3.5 Total Protein Albumin Lipase Urine Color Urine Appearance Urine pH Ur Specific [place] Urine Protein Urine Glucose (UA) Urine Ketones Urine Blood Urine Nitrite Ur Leukocyte Esterase Urine RBC Urine WBC Ur Squamous Epith Cells Urine Bacteria Urine Mucus Salicylates Urine Opiates Screen Urine Fentanyl Screen Acetaminophen Ur Barbiturates Screen Ur Phencyclidine Scrn Ur Amphetamines Screen U Benzodiazepines Scrn [place] Urine Cocaine Screen U Marijuana (THC) Screen Ethyl Alcohol COVID-19 ([facility]) COVID-19 Clin Com Influenza Type A ([place]) Negative Influenza Type B ([place]) Negative Influenza A & B Note See Note 08/02/21 08/02/21 08/02/21 10:20 10:20 10:20 MCV MCH MCHC RDW Plt Count MPV Immature Gran % (Auto) Neut % (Auto) Lymph % (Auto) [place] % (Auto) Eos % (Auto) Baso % (Auto) Lymph # (Auto) [place] # (Auto) Eos # (Auto) Baso # (Auto) Abs Immat Gran (auto) Absolute Neuts (auto) Absolute Nucleated RBC Nucleated RBC % (auto) PT INR APTT O2 Saturation ABG pH at Pt Temp ABG pCO2 at Pt Temp ABG pO2 at Pt Temp ABG HCO3 ABG Base Excess (Actual) Anion Gap Estim Creat Clear Calc Estimated GFR POC Glucose Random Glucose Lactic Acid Calcium Total Bilirubin AST ALT Alkaline Phosphatase Total Creatine Kinase Troponin I High Sens Total Protein Albumin Lipase Urine Color STRAW Urine Appearance CLEAR Urine pH 5.5 Ur Specific [place] 1.010 Urine Protein NEG Urine Glucose (UA) >=1000 H Urine Ketones NEG Urine Blood NEG Urine Nitrite NEG Ur Leukocyte Esterase NEG Urine RBC 0-2 Urine WBC 0-2 Ur Squamous Epith Cells TRACE Urine Bacteria NONE Urine Mucus TRACE Salicylates Urine Opiates Screen Not Detected Urine Fentanyl Screen Not Detected Acetaminophen Ur Barbiturates Screen Not Detected Ur Phencyclidine Scrn Not Detected Ur Amphetamines Screen Not Detected U Benzodiazepines Scrn Not Detected [place] Urine Cocaine Screen Not Detected U Marijuana (THC) Screen Not Detected Ethyl Alcohol COVID-19 ([facility]) Negative COVID-19 Clin Com See Note Influenza Type A ([place]) Influenza Type B ([place]) Influenza A & B Note 08/02/21 08/02/21 08/02/21 12:31 12:31 12:31 MCV 87.8 MCH 28.9 MCHC 33.0 RDW 15.6 Plt Count 204 D MPV 11.9 Immature Gran % (Auto) 0.4 Neut % (Auto) 81.8 H Lymph % (Auto) 13.3 L [place] % (Auto) 3.9 Eos % (Auto) 0.2 Baso % (Auto) 0.4 Lymph # (Auto) 1.8 [place] # (Auto) 0.5 Eos # (Auto) 0.0 Baso # (Auto) 0.1 Abs Immat Gran (auto) 0.05 H Absolute Neuts (auto) 11.2 H Absolute Nucleated RBC 0.000 Nucleated RBC % (auto) 0.0 PT INR APTT O2 Saturation ABG pH at Pt Temp ABG pCO2 at Pt Temp ABG pO2 at Pt Temp ABG HCO3 ABG Base Excess (Actual) Anion Gap Estim Creat Clear Calc Estimated GFR POC Glucose Random Glucose Lactic Acid 3.7 H* Calcium Total Bilirubin AST ALT Alkaline Phosphatase Total Creatine Kinase Troponin I High Sens Total Protein Albumin Lipase Urine Color Urine Appearance Urine pH Ur Specific [place] Urine Protein Urine Glucose (UA) Urine Ketones Urine Blood Urine Nitrite Ur Leukocyte Esterase Urine RBC Urine WBC Ur Squamous Epith Cells Urine Bacteria Urine Mucus Salicylates Urine Opiates Screen Urine Fentanyl Screen Acetaminophen Ur Barbiturates Screen Ur Phencyclidine Scrn Ur Amphetamines Screen U Benzodiazepines Scrn [place] 0.21 L Urine Cocaine Screen U Marijuana (THC) Screen Ethyl Alcohol COVID-19 ([facility]) COVID-19 Clin Com Influenza Type A ([place]) Influenza Type B ([place]) Influenza A & B Note 08/02/21 08/02/21 12:46 13:33 MCV MCH MCHC RDW Plt Count MPV Immature Gran % (Auto) Neut % (Auto) Lymph % (Auto) [place] % (Auto) Eos % (Auto) Baso % (Auto) Lymph # (Auto) [place] # (Auto) Eos # (Auto) Baso # (Auto) Abs Immat Gran (auto) Absolute Neuts (auto) Absolute Nucleated RBC Nucleated RBC % (auto) PT INR APTT O2 Saturation 96.0 ABG pH at Pt Temp 7.30 L ABG pCO2 at Pt Temp 37 ABG pO2 at Pt Temp 90 ABG HCO3 18 L ABG Base Excess (Actual) -6.8 Anion Gap Estim Creat Clear Calc Estimated GFR POC Glucose 307 H Random Glucose Lactic Acid Calcium Total Bilirubin AST ALT Alkaline Phosphatase Total Creatine Kinase Troponin I High Sens Total Protein Albumin Lipase Urine Color Urine Appearance Urine pH Ur Specific [place] Urine Protein Urine Glucose (UA) Urine Ketones Urine Blood Urine Nitrite Ur Leukocyte Esterase Urine RBC Urine WBC Ur Squamous Epith Cells Urine Bacteria Urine Mucus Salicylates Urine Opiates Screen Urine Fentanyl Screen Acetaminophen Ur Barbiturates Screen Ur Phencyclidine Scrn Ur Amphetamines Screen U Benzodiazepines Scrn [place] Urine Cocaine Screen U Marijuana (THC) Screen Ethyl Alcohol COVID-19 ([facility]) COVID-19 Clin Com Influenza Type A ([place]) Influenza Type B ([place]) Influenza A & B Note Imaging Radiologist's Impressions: Impressions Chest X-Ray 08/02/21 11:41 IMPRESSION: No convincing evidence for an acute process Head CT 08/02/21 11:43 IMPRESSION: No acute finding. Assessment and Plan (1) Acute alteration in mental status: Status: Acute Plan 56F presented with ams toxic metabolic encephaloapthy suspect medication overdose with multiple medication candidates including both patients own meds and her roomates meds opiate overdose unlikely given negative screen and unresponsiveness to narcan previously there was a mention of seizure disorder, neuro eval DM with hyperglycemia insulin, monitor, no dka lactic acidosis no evidence of sepsis bipolar will hold meds for now morbid obesity weight loss recommended dvt prophylaxis - lovenox full code patient with significant encephalopathy and hyperglycemia at risk for further decompensation, therefore, will require atleast 2 midnights in hospital Quality Stroke Does the patient have a stroke diagnosis?: No VTE Prior VTE?: No VTE Risk Level:: Medical - moderate - high VTE Device Contraindication: Treatment Not Indicated VTE Drug Contraindication: N/A - Med Ordered
[2021-08-02 14:03] LABS: TSH reflex Free T4 0.44 uIU/mL (0.32-4.0)
[2021-08-02] MEDS: Sodium Chloride 0.45 % 1,000 ML 80 ML IVCONT (14:13)
--- NOTE | 2021-08-02 14:33 | PHA.MEDREC ---
Pharmacy Consult ? Medication Reconciliation Pharmacy has completed the medication reconciliation. Pt lethargic and not responding. Med rec based on pt's claim history. Since last discharge, Lipitor, Vit b12, metformin, lisinopril and januvia never filled
[2021-08-02 14:35] LABS: Reflex Lactate? Lactic Acid Added
[2021-08-02] MEDS: Enoxaparin Sodium 40 MG/0.4 ML SYRINGE SUBCUT (14:40)
[2021-08-02] MEDS: Insulin Lispro 100 UNIT/ML 3 ML VIAL SUBCUT (14:41)
[2021-08-02 14:47] LABS: Glucose, Whole Blood 302 mg/dL (60-115)
[2021-08-02 14:47] LABS: Basophils Percent Auto 0.3 % (0-2); Eosinophils Percent Auto 0.1 % (0-4); Hematocrit 37.3 % (37.0-47.0); Hemoglobin 12.3 g/dl (12.0-16.0); Imm Gran Abs Auto 0.08 X10*3/uL (0.00-0.03); Imm Gran Pct Auto 0.5 % (0.0-0.4); Lymphocytes Absolute Auto 2.1 X10*3/uL (1.2-4.9); Lymphocytes Percent Auto 14.1 % (20-40); MANUAL DIFF FLAG SCAN; Mean Corpuscular Hemoglobin 28.9 pg (27.0-33.0); Mean Corpuscular Volume 87.8 fL (80.0-98.0); Monocytes Absolute Auto 0.5 X10*3/uL (0.1-1.2); Monocytes Percent Auto 3.5 % (2-11); Neutrophils Absolute Auto 12.3 x10*3/uL (2.0-8.3); Neutrophils Percent Auto 81.5 % (45-73); PLT CLUMP 1; Red Blood Count 4.25 X10*6/uL (4.20-5.50); Red Cell Distribution Width 15.6 % (11.0-16.0); SCAN SMEAR FLAG 1
--- NOTE | 2021-08-02 14:55 | P.CNNE_ITS ---
History of Present Illness Data of Consult Service Date: 08/02/21 Primary Care Provider: Unknown Physician HPI Reason for consult: Encephalopathy 56 years old woman with underlying history of drug abuse brought to hospital in altered status per received of the not it is a qiu of drug abuse though it was negative. She has been on to use intranasal heroin. At this time she was not responsive. There was no evidence of any convulsion Review of Systems Review of Systems: Could not be done with [facility] Past Medical History Medical History Asthma Bipolar disorder Chronic pain Diabetes Hypertension IBS (irritable bowel syndrome) Peripheral neuropathy Polysubstance abuse Seizure Surgical History Surgical History History of appendectomy Social History Social History Household Members: Other Housing: Unknown / Unable to assess Do you presently have visiting nurse or other home services: No Unable to assess alcohol history related to: Unknown Alcohol intake: current Patient Tobacco Use Status: Tobacco use Unknown Use of substances other than those prescribed or required for medical reasons: Yes Substance Use Type: Prescription Drugs Advance Directives: No Advance Directives Information Provided: No Patient : No service: No Current occupational status: disabled Meds Allergies Allergy/AdvReac Type Severity Reaction Status Date / Time morphine [MORPHINE] Allergy Unknown RASH, vomit Unverified 11/26/19 17:43 prednisone Allergy Unknown hives Verified 10/18/16 00:00 Sulfa (Sulfonamide Allergy Unknown UNKNOWN, Unverified 11/26/19 17:43 Antibiotics) hives [SULFA (SULFONAMIDE ANTIBIOTICS)] Active Medications: Current Medications Dextrose (Dextrose 50 % 25 Gm/50 Ml Syringe) 25 gm IVPUSH Q15M PRN; Protocol PRN Reason: per Hypoglycemia Standing Ord. Enoxaparin Sodium (Enoxaparin Sodium 40 Mg/0.4 Ml Syringe) 40 mg SUBCUT Q24H [facility] Last Admin: 08/02/21 14:40 Dose: 40 mg Documented by: Glucose (Glucose Gel 15 Gm Gel..Gram.) 15 gm PO Q15M PRN; Protocol PRN Reason: per Hypoglycemia Standing Ord. Sodium Chloride () 1,000 mls @ 80 mls/hr IVCONT .[id number] [facility] Last Admin: 08/02/21 14:13 Dose: 80 mls/hr Documented by: Insulin Human Lispro (Insulin Lispro 100 Unit/Ml 3 Ml Vial) 0 unit SUBCUT Q6H [facility]; Protocol Last Admin: 08/02/21 14:41 Dose: 8 unit Documented by: Pharmacy Consult (Consult Rx Perform Med Rec) 1 each MISCELLANE ONCE PRN PRN Reason: Consult order Home Medications Medication Instructions Recorded Confirmed Last Taken Type clonidine HCl 0.2 mg tablet 0.2 mg PO TID PRN 07/15/21 08/02/21 Unknown History lithium carbonate 150 mg capsule 150 mg PO DAILY 07/15/21 08/02/21 Unknown History lorazepam 0.5 mg tablet 0.5 mg PO DAILY PRN 07/15/21 08/02/21 Unknown History pregabalin 150 mg capsule 150 mg PO BID 07/15/21 08/02/21 Unknown History quetiapine 200 mg tablet (Seroquel) 200 mg PO BEDTIME 07/15/21 08/02/21 Unknown History lurasidone 120 mg tablet (Latuda) 1 tab PO DAILY 08/02/21 08/02/21 Unknown History prazosin 1 mg capsule 1 cap PO BEDTIME 08/02/21 08/02/21 Unknown History Physical Exam Vital Signs: Vital Signs: Last Vital Signs Temp 96.3 F L 08/02/21 11:51 Pulse 74 08/02/21 14:20 Resp 14 08/02/21 14:20 BP 127/75 08/02/21 14:20 Pulse Ox 96 08/02/21 14:20 BMI result Body Mass Index 41.7 HEENT: Other: Obese woman which small chin and obesity around the neck. Neuro: Other: She was snoring with eyes closed. She did not respond to verbal or painful stim eleni. Intermittently she would have grunting noise. There was no gaze deviation or eye deviation. Face seems symmetrical. There was no abnormal posturing or jerking. Plantars were flat. Deep tendon reflexes were absent. Results Labs CBC & Chem 7: 08/02/21 14:17 08/02/21 10:05 Labs: Short CBC 08/02/21 08/02/21 Range/Units 12:31 14:17 WBC 13.7 H (4.8-10.8) X10*3/uL Hgb 11.6 L 12.3 (12.0-16.0) g/dl Hct 35.2 L 37.3 (37.0-47.0) % Plt Count 204 D (160-400) X10*3/uL BMP 08/02/21 10:05 Sodium 138 Potassium 5.6 H D Chloride 109 H Carbon Dioxide 18 L BUN 20 H Creatinine 1.16 Calcium 8.5 D Cardiac Enzymes 08/02/21 Range/Units 10:05 Total Creatine Kinase 211 H D (26-140) U/L Liver Function 08/02/21 Range/Units 10:05 Total Bilirubin 0.2 (0.0-1.0) mg/dL AST 20 (5-31) U/L ALT 15 (0-31) U/L Alkaline Phosphatase 107 (39-117) U/L Albumin 3.4 L (3.5-5.0) g/dL Urine 08/02/21 Range/Units 10:20 Urine Color STRAW Urine Appearance CLEAR Urine pH 5.5 (5.0-8.0) Ur Specific [place] 1.010 (1.005-1.025) Urine Protein NEG (NEG-TRACE) MG/DL Urine Glucose (UA) >=1000 H (NEG) MG/DL Noncontrast head CT did not reveal any significant abnormality Assessment and Plan (1) Toxic metabolic encephalopathy: Status: Acute Likely metabolic toxic encephalopathy reform electrolyte abnormalities and drug use. Her overall body habitus put her at risk for obstructive sleep apnea which might be contributing. Overall size presentation was not suggestive of of focal or fixed lesion. Seizure disorder is a possibility but seems less likely. I would recommend correction of electrolyte abnormalities, hydration, and EEG tomorrow if she would not improved. (2) Obesity: Status: Acute (3) Sleep apnea: Status: Acute Procedures Date of Service Date of Service: 08/02/21
[2021-08-02 14:57] LABS: ~Lactic Acid-LAB USE ONLY 3.6 mmol/L (0.5-2.0)
[2021-08-02 15:35] LABS: White Blood Count 15.1 X10*3/uL (4.8-10.8)
[2021-08-02 15:36] LABS: SLIDE REVIEW VERIFIED
[2021-08-02 16:44] LABS: Reflex Lactate? 2 Y
[2021-08-02 16:57] LABS: Anion Gap 17 (12-20); Blood Urea Nitrogen 19 mg/dL (9-16); Calcium 8.7 mg/dL (8.4-10.2); Carbon Dioxide 13 mmol/L (22-29); Chloride 115 mmol/L (96-108); Creatinine Clr Calc Pharmacy 64.7; Estimated Glomerular Filt Rate 57; Glucose Random 315 mg/dL (60-115); Potassium 6.3 mmol/L (3.3-5.1); Sodium 139 mmol/L (135-145)
--- NOTE | 2021-08-02 17:46 | PC.NURSE ---
notfied of increased foamy secreations. Scant amount of white foam suctioned. Plan at this time is CXR and hold bicarb gtt. POC 259, holding 10 units IVP insulin per verbal order
[2021-08-02 17:47] LABS: Glucose, Whole Blood 259 mg/dL (60-115)
[2021-08-02 18:09] LABS: ABG Base Excess -5.3 mmol/L; ABG HCO3 19 mmol/L (22-26); ABG pCO2 36 mmHg (32-45); ABG pH 7.33 (7.35-7.45); ABG pO2 97 mmHg (83-108)
[2021-08-02 18:59] LABS: ~Lactic Acid-LAB USE ONLY 2.9 mmol/L (0.5-2.0)
[2021-08-02 19:26] LABS: Anion Gap 8 (12-20); Blood Urea Nitrogen 15 mg/dL (9-16); Calcium 8.5 mg/dL (8.4-10.2); Carbon Dioxide 23 mmol/L (22-29); Chloride 105 mmol/L (96-108); Estimated Glomerular Filt Rate > 60; Glucose Random 228 mg/dL (60-115); Potassium 4.5 mmol/L (3.3-5.1); Sodium 131 mmol/L (135-145)
--- NOTE | 2021-08-02 19:28 | PC.NURSE ---
pt resting in bed, unarousable to verbal/sternal rub. audible rhonchi, pt coughing up sputum, small amount of sputum suctioned from pt mouth
[2021-08-02 19:35] LABS: ABG Refer to POC result
--- NOTE | 2021-08-02 19:51 | PC.NURSE ---
MD contacted to notify of pt increased secretion, decreased RR.. MD verbaled CPT, pt unable to tolerate laying with HOB down, frothy white sputum in mouth. MD contacted again, plan to keep hob elevated, monitor RR and O2, nasal suctioning performed by RT, pt able to cough- able to suction out white thick mucus. pt has decreased WOB and decreased rhochi at this time.
[2021-08-02 20:32] LABS: Glucose, Whole Blood 206 mg/dL (60-115)
--- NOTE | 2021-08-02 21:28 | PM.EVENT ---
Event Note Date of Service: 08/02/21 Event Note: altered mental status: Patient see tox is negative Patient is intermittently crying and shortening, appears restless; pupils are normal size U tox negative Vitals stable, saturating 93% on room air but noted to have lot of secretions status post deep suctioning with improvement in oxygenation and secretions. Spoke to the RN for frequent suctioning, chest with the therapy Supplemental pain oxygen p.r.n. DuoNebs p.r.n. For restlessness will give a small dose of Ativan aspiration precautions continuous pulse oximetry
--- NOTE | 2021-08-02 21:30 | PC.NURSE ---
order to hold SS insulin. pt was scheduled to receive 4 u of regular insulin but since pt is NPO, order to hold insulin
[2021-08-02] MEDS: LORazepam 2 MG/ML VIAL 0.5 MG IVPUSH (21:57)
--- NOTE | 2021-08-02 22:00 | PC.NURSE ---
pt moaning, yelling, restless, respositioned multiple times and continues to sh[place]e down the bed. pt continues to need frequent repositioning as MD ordered asp precautions, pt unable to verbalize or voice needs.
--- NOTE | 2021-08-02 22:14 | MHC.CM.PN ---
IMM reviewed with HCP/Room-mate Jaxson Walton ([phone]). Requested IMM be mailed to him. Contact card mailed.Pt has AMS,was non responsive, now makes vocalizations &yelling sounds. Not communicating with staff. Unable to converse/answer questions. Very altered. CM spoke with HCP/Jaxson. States PCP is at [facility], but he doesn't know the name. Pt has a hx of polysubstance abuse and bipolar disorder. Pt snorts heroin and percocet. Tox screen negative this admission. Jaxson concerned that patient might have taken his meds. MD aware. Pt has been admitted multiple times with AMS, encephalopathy. Last admission at [facility] 07/15-07/18-toxic metabolic Encephalopathy. Per Jaxson, pt was acting normally when discharged. Jaxson is concerned about dementia, as pt has family hx. Pt lives with Jaxson, uses no DME/services. Vax x2/[employer]. NO Booster. D/C plan is home. Pt will need CARE consult for polysubstance abuse and for bipolar disorder. Jaxson will provide transportation home. CM to follow for d/c needs.
--- NOTE | 2021-08-02 22:31 | PC.NURSE ---
frequent intemittent suctioning is required to clear pt oral secretions, pt able to occasionally cough to clear secretions. HOB elevated, pt reassured with no effect
--- NOTE | 2021-08-02 23:21 | PC.NURSE ---
pt repositioned by this RN and surface mount technology operator after sliding herself down the bed. pt in no distress laying down, but to maintain asp. precautions. pt was boosted and repositioned in bed. pt moaning and yelling out unable to speak words, unable to verbalize if she is in pain. disoriented. pt has intermittent switching to bilat upper extremities and her face.
[2021-08-03] VITALS (17 sets, daily range): BP systolic 101–184; BP diastolic 49–97; PULSE 83–111; RESP 15–36; TEMP 36.8–38.2; O2SAT 87–99; BMI 40.7
[2021-08-03] MEDS: LORazepam 2 MG/ML VIAL 1 MG IVPUSH (00:06)
--- NOTE | 2021-08-03 00:06 | PC.NURSE ---
barcode ripped on ativan, therefore not scanned, pt continues to yell out, unable to communicate why she is yelling
--- NOTE | 2021-08-03 00:14 | PC.NURSE ---
pt continues to yell, medicated with 1mg ativan, few minutes later, pt desaturated to 87% after being titrated up to 6lpm. MD aware, RT called for oxymask. pt still able to move air while yelling, and protect airway
[2021-08-03 02:57] LABS: Glucose, Whole Blood 244 mg/dL (60-115)
[2021-08-03] MEDS: LORazepam 2 MG/ML VIAL 0.5 MG IVPUSH (03:10)
[2021-08-03] MEDS: HYDROmorphone HCl 1 MG/ML SYRINGE IVPUSH (03:47)
--- NOTE | 2021-08-03 04:25 | PC.NURSE ---
pt has audible rhonchi, difficulty clearing secretions. pt in continually repositioned by RN and technical solutions director with HOB elevated before she slides down the bed again. pt yelling, unable to verbalize. secretions suctioned from mouth, pt noted to have a scant amount of blood come from rt nares. pt resting in bed, oxymask in use at this time
--- NOTE | 2021-08-03 05:14 | PC.NURSE ---
pt continues to cry out, repositioned and given a bed change by this RN and measurement and sensing technician. pt immediatley purposefully slid down bed and attempted to go on side, pt repositioned with pillows and elevated HOB. pt again turned over and put herself in a supine position where she cannot protect airway. sputum dripping down pt face, suctioned pt mouth, pt still unable to clear secretions. MD contacted. RT contacted to nasal suction
--- NOTE | 2021-08-03 05:56 | PC.NURSE ---
pt continues to scream intermittently despite not being in distress. pt is pulling off blankets and exposing self. pt reassured and redirected countless times with absolutely no effect. pt continues to shift herself within the bed, moving her feet between and above the siderails. pt repositioned with the help of an pharmacy laboratory technician. pt resting comfortably with oxymask on, although continues to cry out and yell but still is unable to communicate what is wrong.
--- NOTE | 2021-08-03 06:36 | PC.NURSE ---
pt again repositioned to ensure asp. precautions. pt not cooperative with upright position, continues to yell and turn over so that her face is up against the side rail. pt repositioned with pillows on either side to ensure safety
[2021-08-03 07:42] LABS: Glucose, Whole Blood 263 mg/dL (60-115)
[2021-08-03 07:43] LABS: Hematocrit 36.8 % (37.0-47.0); Hemoglobin 12.4 g/dl (12.0-16.0); Mean Corpuscular HGB Conc 33.7 g/dl (31.0-35.0); Mean Corpuscular Hemoglobin 29.2 pg (27.0-33.0); Mean Corpuscular Volume 86.8 fL (80.0-98.0); Mean Platelet Volume 12.3 fL (9.4-12.3); PLT CLUMP 1; Red Blood Count 4.24 X10*6/uL (4.20-5.50); Red Cell Distribution Width 15.4 % (11.0-16.0)
[2021-08-03 07:44] LABS: Platelet Count 265 X10*3/uL (160-400); White Blood Count 18.9 X10*3/uL (4.8-10.8)
[2021-08-03 07:49] LABS: Anion Gap 16 (12-20); Blood Urea Nitrogen 21 mg/dL (9-16); Calcium 8.6 mg/dL (8.4-10.2); Carbon Dioxide 19 mmol/L (22-29); Chloride 112 mmol/L (96-108); Creatinine Clr Calc Pharmacy 72.7; Estimated Glomerular Filt Rate > 60; Glucose Fasting 301 mg/dL (60-99); Potassium 5.1 mmol/L (3.3-5.1); Sodium 142 mmol/L (135-145)
--- NOTE | 2021-08-03 07:57 | PC.NURSE ---
PT WAS ASSIGNED TO ICU NURSING [facility] CONSULTANT TRANSPORTED PATIENT TO UNIT.
[2021-08-03] MEDS: fentaNYL citrate/PF 100 MCG/2 ML VIAL 25 MCG IVPUSH (08:00)
[2021-08-03] MEDS: OLANZapine 10 MG VIAL 5 MG IM (08:00)
[2021-08-03] MEDS: Insulin Lispro 100 UNIT/ML 3 ML VIAL SUBCUT ×2 (08:34→14:15)
--- NOTE | 2021-08-03 10:34 | P.PNIM_ITS ---
Subjective Subjective Date of Service: 08/03/21 Interval History: cc: ams interval history:more alert but agitated, not participatory Review of Systems Review of Systems: Yes Unobtainable due to mental condition Physical Exam Vital Signs: Vital Signs: Last Vital Signs Temp 98.3 F 08/03/21 08:00 Pulse 111 H 08/03/21 08:00 Resp 17 08/03/21 08:00 BP 184/58 H 08/03/21 08:00 Pulse Ox 94 08/03/21 08:00 BMI result Body Mass Index 41.7 General: agitated, groaning, not talking Resp: diminished bilateral, no accessory muscles used CVS: S1,S2,RRR GI: soft, non tender, non distended Neuro: not participatory in exam Psych: agitated affect, impaired insight Objective Data Active Medications Albuterol/Ipratropium (Albuterol/Iprat 2.5/0.5mg 3 Ml Ampul.Neb) 3 ml INHALE Q4H PRN PRN Reason: Shortness of Breath/Wheezing Dextrose (Dextrose 50 % 25 Gm/50 Ml Syringe) 25 gm IVPUSH Q15M PRN; Protocol PRN Reason: per Hypoglycemia Standing Ord. Enoxaparin Sodium (Enoxaparin Sodium 40 Mg/0.4 Ml Syringe) 40 mg SUBCUT Q24H [facility] Last Admin: 08/02/21 14:40 Dose: 40 mg Documented by: ALISSA Fentanyl (Fentanyl Citrate/Pf 100 Mcg/2 Ml Vial) 25 mcg IVPUSH Q2H PRN; Protocol PRN Reason: work of breathing Last Admin: 08/03/21 08:00 Dose: 25 mcg Documented by: ZACH Glucose (Glucose Gel 15 Gm Gel..Gram.) 15 gm PO Q15M PRN; Protocol PRN Reason: per Hypoglycemia Standing Ord. Insulin Human Lispro (Insulin Lispro 100 Unit/Ml 3 Ml Vial) 0 unit SUBCUT Q6H [facility]; Protocol Last Admin: 08/03/21 08:34 Dose: 6 unit Documented by: ZACH Pharmacy Consult (Consult Rx Perform Med Rec) 1 each MISCELLANE ONCE PRN PRN Reason: Consult order Labs CBC & Chem 7: 08/03/21 06:59 08/03/21 06:59 Labs: Laboratory Results - last 24 hr 0508/02/21 08/02/21 10:05 10:05 10:05 MCV MCH MCHC RDW Plt Count MPV Immature Gran % (Auto) Neut % (Auto) Lymph % (Auto) Boundary % (Auto) Eos % (Auto) Baso % (Auto) Lymph # (Auto) Boundary # (Auto) Eos # (Auto) Baso # (Auto) Abs Immat Gran (auto) Absolute Neuts (auto) Absolute Nucleated RBC Nucleated RBC % (auto) Smear Tech's Comments PT 9.5 L INR 0.8 L APTT 34.3 O2 Saturation ABG pH at Pt Temp ABG pCO2 at Pt Temp ABG pO2 at Pt Temp ABG HCO3 ABG Base Excess (Actual) Anion Gap 17 Estim Creat Clear Calc 55.8 Estimated GFR 48 POC Glucose Random Glucose 415 H* Fasting Glucose Lactic Acid Lactic Acid F/U @ 2Hr Lactic Acid F/U @ 4Hr Calcium 8.5 D Total Bilirubin 0.2 AST 20 ALT 15 Alkaline Phosphatase 107 Total Creatine Kinase 211 H D Troponin I High Sens < 3.5 Total Protein 6.5 Albumin 3.4 L Lipase 29 TSH 0.44 Urine RBC Urine WBC Ur Squamous Epith Cells Urine Bacteria Urine Mucus Salicylates < 5.0 L Urine Opiates Screen Urine Fentanyl Screen Acetaminophen < 1 Ur Barbiturates Screen Ur Phencyclidine Scrn Ur Amphetamines Screen U Benzodiazepines Scrn [place] Urine Cocaine Screen U Marijuana (THC) Screen COVID-19 ([facility]) COVID-19 Clin Com Influenza Type A ([place]) Influenza Type B ([place]) Influenza A & B Note 08/02/21 08/02/21 08/02/21 10:20 10:20 10:20 MCV MCH MCHC RDW Plt Count MPV Immature Gran % (Auto) Neut % (Auto) Lymph % (Auto) Boundary % (Auto) Eos % (Auto) Baso % (Auto) Lymph # (Auto) Boundary # (Auto) Eos # (Auto) Baso # (Auto) Abs Immat Gran (auto) Absolute Neuts (auto) Absolute Nucleated RBC Nucleated RBC % (auto) Smear Tech's Comments PT INR APTT O2 Saturation ABG pH at Pt Temp ABG pCO2 at Pt Temp ABG pO2 at Pt Temp ABG HCO3 ABG Base Excess (Actual) Anion Gap Estim Creat Clear Calc Estimated GFR POC Glucose Random Glucose Fasting Glucose Lactic Acid Lactic Acid F/U @ 2Hr Lactic Acid F/U @ 4Hr Calcium Total Bilirubin AST ALT Alkaline Phosphatase Total Creatine Kinase Troponin I High Sens Total Protein Albumin Lipase TSH Urine RBC 0-2 Urine WBC 0-2 Ur Squamous Epith Cells TRACE Urine Bacteria NONE Urine Mucus TRACE Salicylates Urine Opiates Screen Urine Fentanyl Screen Acetaminophen Ur Barbiturates Screen Ur Phencyclidine Scrn Ur Amphetamines Screen U Benzodiazepines Scrn [place] Urine Cocaine Screen U Marijuana (THC) Screen COVID-19 ([facility]) Negative COVID-19 Clin Com See Note Influenza Type A ([place]) Negative Influenza Type B ([place]) Negative Influenza A & B Note See Note 08/02/21 08/02/21 08/02/21 10:20 12:31 12:31 MCV 87.8 MCH 28.9 MCHC 33.0 RDW 15.6 Plt Count 204 D MPV 11.9 Immature Gran % (Auto) 0.4 Neut % (Auto) 81.8 H Lymph % (Auto) 13.3 L Boundary % (Auto) 3.9 Eos % (Auto) 0.2 Baso % (Auto) 0.4 Lymph # (Auto) 1.8 Boundary # (Auto) 0.5 Eos # (Auto) 0.0 Baso # (Auto) 0.1 Abs Immat Gran (auto) 0.05 H Absolute Neuts (auto) 11.2 H Absolute Nucleated RBC 0.000 Nucleated RBC % (auto) 0.0 Smear Tech's Comments PT INR APTT O2 Saturation ABG pH at Pt Temp ABG pCO2 at Pt Temp ABG pO2 at Pt Temp ABG HCO3 ABG Base Excess (Actual) Anion Gap Estim Creat Clear Calc Estimated GFR POC Glucose Random Glucose Fasting Glucose Lactic Acid 3.7 H* Lactic Acid F/U @ 2Hr Lactic Acid F/U @ 4Hr Calcium Total Bilirubin AST ALT Alkaline Phosphatase Total Creatine Kinase Troponin I High Sens Total Protein Albumin Lipase TSH Urine RBC Urine WBC Ur Squamous Epith Cells Urine Bacteria Urine Mucus Salicylates Urine Opiates Screen Not Detected Urine Fentanyl Screen Not Detected Acetaminophen Ur Barbiturates Screen Not Detected Ur Phencyclidine Scrn Not Detected Ur Amphetamines Screen Not Detected U Benzodiazepines Scrn Not Detected [place] Urine Cocaine Screen Not Detected U Marijuana (THC) Screen Not Detected COVID-19 ([facility]) COVID-19 Clin Com Influenza Type A ([place]) Influenza Type B ([place]) Influenza A & B Note 08/02/21 08/02/21 08/02/21 12:31 12:46 13:33 MCV MCH MCHC RDW Plt Count MPV Immature Gran % (Auto) Neut % (Auto) Lymph % (Auto) Boundary % (Auto) Eos % (Auto) Baso % (Auto) Lymph # (Auto) Boundary # (Auto) Eos # (Auto) Baso # (Auto) Abs Immat Gran (auto) Absolute Neuts (auto) Absolute Nucleated RBC Nucleated RBC % (auto) Smear Tech's Comments PT INR APTT O2 Saturation 96.0 ABG pH at Pt Temp 7.30 L ABG pCO2 at Pt Temp 37 ABG pO2 at Pt Temp 90 ABG HCO3 18 L ABG Base Excess (Actual) -6.8 Anion Gap Estim Creat Clear Calc Estimated GFR POC Glucose 307 H Random Glucose Fasting Glucose Lactic Acid Lactic Acid F/U @ 2Hr Lactic Acid F/U @ 4Hr Calcium Total Bilirubin AST ALT Alkaline Phosphatase Total Creatine Kinase Troponin I High Sens Total Protein Albumin Lipase TSH Urine RBC Urine WBC Ur Squamous Epith Cells Urine Bacteria Urine Mucus Salicylates Urine Opiates Screen Urine Fentanyl Screen Acetaminophen Ur Barbiturates Screen Ur Phencyclidine Scrn Ur Amphetamines Screen U Benzodiazepines Scrn [place] 0.21 L Urine Cocaine Screen U Marijuana (THC) Screen COVID-19 ([facility]) COVID-19 Clin Com Influenza Type A ([place]) Influenza Type B ([place]) Influenza A & B Note 08/02/21 08/02/21 08/02/21 14:17 14:18 14:41 MCV 87.8 MCH 28.9 MCHC 33.0 RDW 15.6 Plt Count Not Reportable MPV CLINICAL ACCOUNT MANAGER Immature Gran % (Auto) 0.5 H Neut % (Auto) 81.5 H Lymph % (Auto) 14.1 L Boundary % (Auto) 3.5 Eos % (Auto) 0.1 Baso % (Auto) 0.3 Lymph # (Auto) 2.1 Boundary # (Auto) 0.5 Eos # (Auto) 0.0 Baso # (Auto) 0.0 Abs Immat Gran (auto) 0.08 H Absolute Neuts (auto) 12.3 H Absolute Nucleated RBC 0.000 Nucleated RBC % (auto) 0.0 Smear Tech's Comments VERIFIED PT INR APTT O2 Saturation ABG pH at Pt Temp ABG pCO2 at Pt Temp ABG pO2 at Pt Temp ABG HCO3 ABG Base Excess (Actual) Anion Gap Estim Creat Clear Calc Estimated GFR POC Glucose 302 H Random Glucose Fasting Glucose Lactic Acid Lactic Acid F/U @ 2Hr 3.6 H* Lactic Acid F/U @ 4Hr Calcium Total Bilirubin AST ALT Alkaline Phosphatase Total Creatine Kinase Troponin I High Sens Total Protein Albumin Lipase TSH Urine RBC Urine WBC Ur Squamous Epith Cells Urine Bacteria Urine Mucus Salicylates Urine Opiates Screen Urine Fentanyl Screen Acetaminophen Ur Barbiturates Screen Ur Phencyclidine Scrn Ur Amphetamines Screen U Benzodiazepines Scrn [place] Urine Cocaine Screen U Marijuana (THC) Screen COVID-19 ([facility]) COVID-19 Clin Com Influenza Type A ([place]) Influenza Type B ([place]) Influenza A & B Note 08/02/21 08/02/21 08/02/21 15:57 17:41 18:01 MCV MCH MCHC RDW Plt Count MPV Immature Gran % (Auto) Neut % (Auto) Lymph % (Auto) Boundary % (Auto) Eos % (Auto) Baso % (Auto) Lymph # (Auto) Boundary # (Auto) Eos # (Auto) Baso # (Auto) Abs Immat Gran (auto) Absolute Neuts (auto) Absolute Nucleated RBC Nucleated RBC % (auto) Smear Tech's Comments PT INR APTT O2 Saturation 97.0 ABG pH at Pt Temp 7.33 L ABG pCO2 at Pt Temp 36 ABG pO2 at Pt Temp 97 ABG HCO3 19 L ABG Base Excess (Actual) -5.3 Anion Gap 17 Estim Creat Clear Calc 64.7 Estimated GFR 57 POC Glucose 259 H Random Glucose 315 H Fasting Glucose Lactic Acid Lactic Acid F/U @ 2Hr Lactic Acid F/U @ 4Hr Calcium 8.7 Total Bilirubin AST ALT Alkaline Phosphatase Total Creatine Kinase Troponin I High Sens Total Protein Albumin Lipase TSH Urine RBC Urine WBC Ur Squamous Epith Cells Urine Bacteria Urine Mucus Salicylates Urine Opiates Screen Urine Fentanyl Screen Acetaminophen Ur Barbiturates Screen Ur Phencyclidine Scrn Ur Amphetamines Screen U Benzodiazepines Scrn [place] Urine Cocaine Screen U Marijuana (THC) Screen COVID-19 ([facility]) COVID-19 Clin Com Influenza Type A ([place]) Influenza Type B ([place]) Influenza A & B Note 08/02/21 08/02/21 08/02/21 18:38 20:29 Unknown MCV MCH MCHC RDW Plt Count MPV Immature Gran % (Auto) Neut % (Auto) Lymph % (Auto) Boundary % (Auto) Eos % (Auto) Baso % (Auto) Lymph # (Auto) Boundary # (Auto) Eos # (Auto) Baso # (Auto) Abs Immat Gran (auto) Absolute Neuts (auto) Absolute Nucleated RBC Nucleated RBC % (auto) Smear Tech's Comments PT INR APTT O2 Saturation ABG pH at Pt Temp ABG pCO2 at Pt Temp ABG pO2 at Pt Temp ABG HCO3 ABG Base Excess (Actual) Anion Gap 8 L Estim Creat Clear Calc 98.0 Estimated GFR > 60 POC Glucose 206 H Random Glucose 228 H Fasting Glucose Lactic Acid Lactic Acid F/U @ 2Hr Lactic Acid F/U @ 4Hr 2.9 H* Calcium 8.5 Total Bilirubin AST ALT Alkaline Phosphatase Total Creatine Kinase Troponin I High Sens Total Protein Albumin Lipase TSH Urine RBC Urine WBC Ur Squamous Epith Cells Urine Bacteria Urine Mucus Salicylates Urine Opiates Screen Urine Fentanyl Screen Acetaminophen Ur Barbiturates Screen Ur Phencyclidine Scrn Ur Amphetamines Screen U Benzodiazepines Scrn [place] Urine Cocaine Screen U Marijuana (THC) Screen COVID-19 ([facility]) COVID-19 Clin Com Influenza Type A ([place]) Influenza Type B ([place]) Influenza A & B Note 08/03/21 08/03/21 08/03/21 02:52 06:59 06:59 MCV 86.8 MCH 29.2 MCHC 33.7 RDW 15.4 Plt Count 265 D MPV 12.3 Immature Gran % (Auto) Neut % (Auto) Lymph % (Auto) Boundary % (Auto) Eos % (Auto) Baso % (Auto) Lymph # (Auto) Boundary # (Auto) Eos # (Auto) Baso # (Auto) Abs Immat Gran (auto) Absolute Neuts (auto) Absolute Nucleated RBC 0.000 Nucleated RBC % (auto) 0.0 Smear Tech's Comments PT INR APTT O2 Saturation ABG pH at Pt Temp ABG pCO2 at Pt Temp ABG pO2 at Pt Temp ABG HCO3 ABG Base Excess (Actual) Anion Gap 16 Estim Creat Clear Calc 72.7 Estimated GFR > 60 POC Glucose 244 H Random Glucose Fasting Glucose 301 H Lactic Acid Lactic Acid F/U @ 2Hr Lactic Acid F/U @ 4Hr Calcium 8.6 Total Bilirubin AST ALT Alkaline Phosphatase Total Creatine Kinase Troponin I High Sens Total Protein Albumin Lipase TSH Urine RBC Urine WBC Ur Squamous Epith Cells Urine Bacteria Urine Mucus Salicylates Urine Opiates Screen Urine Fentanyl Screen Acetaminophen Ur Barbiturates Screen Ur Phencyclidine Scrn Ur Amphetamines Screen U Benzodiazepines Scrn [place] Urine Cocaine Screen U Marijuana (THC) Screen COVID-19 ([facility]) COVID-19 Clin Com Influenza Type A ([place]) Influenza Type B ([place]) Influenza A & B Note 08/03/21 07:22 MCV MCH MCHC RDW Plt Count MPV Immature Gran % (Auto) Neut % (Auto) Lymph % (Auto) Boundary % (Auto) Eos % (Auto) Baso % (Auto) Lymph # (Auto) Boundary # (Auto) Eos # (Auto) Baso # (Auto) Abs Immat Gran (auto) Absolute Neuts (auto) Absolute Nucleated RBC Nucleated RBC % (auto) Smear Tech's Comments PT INR APTT O2 Saturation ABG pH at Pt Temp ABG pCO2 at Pt Temp ABG pO2 at Pt Temp ABG HCO3 ABG Base Excess (Actual) Anion Gap Estim Creat Clear Calc Estimated GFR POC Glucose 263 H Random Glucose Fasting Glucose Lactic Acid Lactic Acid F/U @ 2Hr Lactic Acid F/U @ 4Hr Calcium Total Bilirubin AST ALT Alkaline Phosphatase Total Creatine Kinase Troponin I High Sens Total Protein Albumin Lipase TSH Urine RBC Urine WBC Ur Squamous Epith Cells Urine Bacteria Urine Mucus Salicylates Urine Opiates Screen Urine Fentanyl Screen Acetaminophen Ur Barbiturates Screen Ur Phencyclidine Scrn Ur Amphetamines Screen U Benzodiazepines Scrn [place] Urine Cocaine Screen U Marijuana (THC) Screen COVID-19 ([facility]) COVID-19 Clin Com Influenza Type A ([place]) Influenza Type B ([place]) Influenza A & B Note Assessment and Plan (1) Toxic metabolic encephalopathy: Status: Acute Plan 56F presented with ams toxic metabolic encephalopathy suspect medication overdose with multiple medication candidates including both patients own meds and her roomates meds opiate overdose unlikely given negative screen and unresponsiveness to narcan previously there was a mention of seizure disorder, neuro appreciated - less likely, but will try eeg when patient more participatory patient now more agitated, less obtunded DM with hyperglycemia insulin, monitor, no dka lactic acidosis no evidence of sepsis bipolar will hold meds for now morbid obesity weight loss recommended dvt prophylaxis - lovenox full code reason for continued hospitalization: still with significant alteration in m ental status Quality Stroke Does the patient have a stroke diagnosis?: No VTE Prior VTE?: No VTE Risk Level:: Medical - moderate - high VTE Device Contraindication: Treatment Not Indicated VTE Drug Contraindication: N/A - Med Ordered
--- NOTE | 2021-08-03 10:37 | MHC.CDI.CONC ---
CDI Concurrent Query Documentation Clarification: PHYSICIAN'S DOCUMENTATION REQUEST Date of Query: 08/03/21 1037 Patient Name: Kaylyn Cruz Admit Date: 08/02/21 Dear Doctor, A review of the medical record indicates additional documentation may be needed. Please review below and update the documentation accordingly. Clinical Indicators: The following diagnoses or signs and symptoms were noted in the patient record: Is there a diagnosis that correlates with these below lab findings: Risk Factors/Clinical Indicators/Treatments LABS: potassium 5.6 H 6.3 H Based on the above, could you clarify in the Progress Notes the appropriate diagnosis, if significant, that supports the above abnormalities and additional evaluation, monitoring, and/or treatment rendered: Hyperkalemia or other etiology of lab findings Labs indicate a diagnosis of (please specify) Other (please specify) Unable to determine Use of terms such as suspected, likely, concern for, or probable (associated with a specific diagnosis that is being evaluated, monitored, or treated as if it exists) are acceptable and can be coded in the inpatient setting, when documented at the time of discharge. Thank you, Mary Beth Munoz [facility], CDIS Extension: [phone] Please use your independent medical judgment in providing your response. THIS QUERY IS PART OF THE PERMANENT MEDICAL RECORD Provider Response: Other Other Diagnosis: hemolyzed, unreliable level
[2021-08-03 12:36] LABS: Glucose, Whole Blood 264 mg/dL (60-115)
[2021-08-03] MEDS: Ziprasidone Mesylate 20 MG VIAL IM ×2 (14:14→18:19)
[2021-08-03] MEDS: Enoxaparin Sodium 40 MG/0.4 ML SYRINGE SUBCUT (14:15)
[2021-08-03] MEDS: cloNIDine 0.2 MG PATCH.TDWK TRANSDERMA (14:56)
--- NOTE | 2021-08-03 14:56 | PC.NURSE ---
Pt has left perorbital edema. Eye swollen shut. Hospitalist aware at this time - will continue to monitor - no other issues related to anaphylaxis noted at this time.
[2021-08-03 18:16] LABS: Glucose, Whole Blood 234 mg/dL (60-115)
[2021-08-03 20:09] LABS: Glucose, Whole Blood 258 mg/dL (60-115)
--- NOTE | 2021-08-03 21:30 | PM.EVENT ---
Event Note Date of Service: 08/03/21 Event Note: Fever: sent ua, CXR. s/w Ceftriaxone/doxy
[2021-08-03] MEDS: LORazepam 2 MG/ML VIAL 0.5 MG IM (21:58)
[2021-08-03] MEDS: cefTRIAXone sodium 1 GM in 0.9 % Sodium Chloride 50 ML IV (22:12)
[2021-08-03] MEDS: Doxycycline Hyclate 100 MG in 0.9 % Sodium Chloride 250 ML 166.67 MG IV (23:12)
[2021-08-03 23:53] LABS: Appearance Urine HAZY; Color Urine YELLOW; Glucose Urine UA >=1000 MG/DL (NEG); Leukocyte Esterase Urine NEG (NEG); Nitrite Urine NEG (NEG); PH 5.5 (5.0-8.0); Specific Gravity - Urine >= 1.030 (1.005-1.025); Urine Blood 3+ (NEG); Urine Ketones 15 MG/DL (NEG); Urine Protein 1+ MG/DL (NEG-TRACE)
[2021-08-04] VITALS (8 sets, daily range): BP systolic 100–149; BP diastolic 45–88; PULSE 79–102; RESP 18–34; TEMP 36.6–37.4; O2SAT 95–97
[2021-08-04 00:24] LABS: Bacteria Urine 2+ /LPF; Squamous Epithelial Cell Urine TRACE /LPF; Uric Acid Crystals Urine 4+ /LPF
[2021-08-04] MEDS: Insulin Lispro 100 UNIT/ML 3 ML VIAL SUBCUT ×4 (00:52→21:41)
[2021-08-04 00:53] LABS: Glucose, Whole Blood 325 mg/dL (60-115)
[2021-08-04] MEDS: Ziprasidone Mesylate 20 MG VIAL IM (03:04)
[2021-08-04 06:04] LABS: Glucose, Whole Blood 264 mg/dL (60-115)
[2021-08-04 08:37] LABS: Prolactin 21.5 ng/mL
[2021-08-04 09:10] LABS: Hematocrit 35.7 % (37.0-47.0); Hemoglobin 12.3 g/dl (12.0-16.0); Mean Corpuscular HGB Conc 34.5 g/dl (31.0-35.0); Mean Corpuscular Hemoglobin 29.6 pg (27.0-33.0); Mean Corpuscular Volume 85.8 fL (80.0-98.0); Mean Platelet Volume 11.4 fL (9.4-12.3); Platelet Count 227 X10*3/uL (160-400); Red Blood Count 4.16 X10*6/uL (4.20-5.50); White Blood Count 15.8 X10*3/uL (4.8-10.8)
[2021-08-04 09:24] LABS: Anion Gap 15 (12-20); Blood Urea Nitrogen 16 mg/dL (9-16); Calcium 8.8 mg/dL (8.4-10.2); Carbon Dioxide 22 mmol/L (22-29); Chloride 109 mmol/L (96-108); Creatinine Clr Calc Pharmacy 77.8; Estimated Glomerular Filt Rate > 60; Glucose Fasting 336 mg/dL (60-99); Potassium 4.6 mmol/L (3.3-5.1); Sodium 141 mmol/L (135-145)
[2021-08-04 09:25] LABS: Glucose, Whole Blood 323 mg/dL (60-115)
[2021-08-04] MEDS: Pregabalin 150 MG CAPSULE PO ×2 (09:52→20:03)
[2021-08-04] MEDS: cloNIDine HCL 0.2 MG TABLET PO ×3 (09:52→20:02)
[2021-08-04] MEDS: Lurasidone HCl 40 MG TABLET 120 MG PO (09:52)
[2021-08-04] MEDS: Lithium Carbonate 300 MG TABLET 150 MG PO (09:53)
--- NOTE | 2021-08-04 11:34 | P.PNIM_ITS ---
Subjective Subjective Date of Service: 08/04/21 Interval History: cc: ams interval history:answering yes to all questions Review of Systems Review of Systems: Yes Unobtainable due to mental condition Physical Exam Vital Signs: Vital Signs: Last Vital Signs Temp 98.1 F 08/04/21 07:16 Pulse 96 08/04/21 07:16 Resp 18 08/04/21 07:16 BP 147/88 H 08/04/21 07:16 Pulse Ox 95 08/04/21 07:16 BMI result Body Mass Index 40.7 General: more alert, minimaly verbal, groaning Resp:? diminished bilateral, no accessory muscles used CVS: S1,S2,RRR GI: soft, non tender, non distended Neuro:? not participatory in exam Psych: agitated affect, impaired insight? Objective Data Active Medications Acetaminophen (Acetaminophen 325 Mg Tablet) 650 mg PO Q6H PRN PRN Reason: mild pain Albuterol/Ipratropium (Albuterol/Iprat 2.5/0.5mg 3 Ml Ampul.Neb) 3 ml INHALE Q4H PRN PRN Reason: Shortness of Breath/Wheezing Clonidine HCl (Clonidine Hcl 0.2 Mg Tablet) 0.2 mg PO TID SARMAD; Protocol Last Admin: 08/04/21 09:52 Dose: 0.2 mg Documented by: JOSR Dextrose (Dextrose 50 % 25 Gm/50 Ml Syringe) 25 gm IVPUSH Q15M PRN; Protocol PRN Reason: per Hypoglycemia Standing Ord. Enoxaparin Sodium (Enoxaparin Sodium 40 Mg/0.4 Ml Syringe) 40 mg SUBCUT Q24H [facility] Last Admin: 08/03/21 14:15 Dose: 40 mg Documented by: ZACH Fentanyl (Fentanyl Citrate/Pf 100 Mcg/2 Ml Vial) 25 mcg IVPUSH Q2H PRN; Protocol PRN Reason: work of breathing Last Admin: 08/03/21 08:00 Dose: 25 mcg Documented by: ZACH Glucose (Glucose Gel 15 Gm Gel..Gram.) 15 gm PO Q15M PRN; Protocol PRN Reason: per Hypoglycemia Standing Ord. Insulin Human Lispro (Insulin Lispro 100 Unit/Ml 3 Ml Vial) 0 unit SUBCUT Q6H [facility]; Protocol Last Admin: 08/04/21 09:54 Dose: 8 unit Documented by: JOSR [place] Carbonate ([place] Carbonate 300 Mg Tablet) 150 mg PO DAILY [facility] Last Admin: 08/04/21 09:53 Dose: 150 mg Documented by: JOSR Lurasidone HCl (Lurasidone Hcl 40 Mg Tablet) 120 mg PO DAILY [facility] Last Admin: 08/04/21 09:52 Dose: 120 mg Documented by: JOSR Pharmacy Consult (Consult Rx Perform Med Rec) 1 each MISCELLANE ONCE PRN PRN Reason: Consult order Prazosin HCl (Prazosin Hcl 1 Mg Capsule) 1 mg PO BEDTIME [facility]; Protocol Last Admin: 08/03/21 20:21 Dose: Not Given Documented by: RUTHY Non-Admin Reason: NPO Pregabalin (Pregabalin 150 Mg Capsule) 150 mg PO BID [facility] Last Admin: 08/04/21 09:52 Dose: 150 mg Documented by: JOSR Quetiapine Fumarate (Quetiapine Fumarate 200 Mg Tablet) 200 mg PO BEDTIME [facility] Last Admin: 08/03/21 20:21 Dose: Not Given Documented by: RUTHY Non-Admin Reason: NPO Ziprasidone (Ziprasidone Mesylate 20 Mg Vial) 20 mg IM Q4H PRN PRN Reason: anxiety/restlessness Last Admin: 08/04/21 03:04 Dose: 20 mg Documented by: URTHY Labs CBC & Chem 7: 08/04/21 08:57 08/04/21 08:57 Labs: Laboratory Results - last 24 hr 08/02/21 08/03/21 08/03/21 18:59 12:32 18:11 MCV MCH MCHC RDW Plt Count MPV Absolute Nucleated RBC Nucleated RBC % (auto) Anion Gap Estim Creat Clear Calc Estimated GFR POC Glucose 264 H 234 H Fasting Glucose Calcium Prolactin 21.5 Urine Color Urine Appearance Urine pH Ur Specific [place] Urine Protein Urine Glucose (UA) Urine Ketones Urine Blood Urine Nitrite Ur Leukocyte Esterase Urine RBC Urine WBC Ur Squamous Epith Cells Uric Acid Crystals Urine Bacteria Urine Yeast 08/03/21 08/03/21 08/04/21 20:04 22:55 00:48 MCV MCH MCHC RDW Plt Count MPV Absolute Nucleated RBC Nucleated RBC % (auto) Anion Gap Estim Creat Clear Calc Estimated GFR POC Glucose 258 H 325 H Fasting Glucose Calcium Prolactin Urine Color YELLOW Urine Appearance HAZY Urine pH 5.5 Ur Specific [place] >= 1.030 H Urine Protein 1+ H Urine Glucose (UA) >=1000 H Urine Ketones 15 Urine Blood 3+ H Urine Nitrite NEG Ur Leukocyte Esterase NEG Urine RBC 15-29 H Urine WBC 5-9 H Ur Squamous Epith Cells TRACE Uric Acid Crystals 4+ Urine Bacteria 2+ Urine Yeast 3+ 08/04/21 08/04/21 08/04/21 05:59 08:57 08:57 MCV 85.8 MCH 29.6 MCHC 34.5 RDW 15.0 Plt Count 227 MPV 11.4 Absolute Nucleated RBC 0.000 Nucleated RBC % (auto) 0.0 Anion Gap 15 Estim Creat Clear Calc 77.8 Estimated GFR > 60 POC Glucose 264 H Fasting Glucose 336 H Calcium 8.8 Prolactin Urine Color Urine Appearance Urine pH Ur Specific [place] Urine Protein Urine Glucose (UA) Urine Ketones Urine Blood Urine Nitrite Ur Leukocyte Esterase Urine RBC Urine WBC Ur Squamous Epith Cells Uric Acid Crystals Urine Bacteria Urine Yeast 08/04/21 09:21 MCV MCH MCHC RDW Plt Count MPV Absolute Nucleated RBC Nucleated RBC % (auto) Anion Gap Estim Creat Clear Calc Estimated GFR POC Glucose 323 H Fasting Glucose Calcium Prolactin Urine Color Urine Appearance Urine pH Ur Specific [place] Urine Protein Urine Glucose (UA) Urine Ketones Urine Blood Urine Nitrite Ur Leukocyte Esterase Urine RBC Urine WBC Ur Squamous Epith Cells Uric Acid Crystals Urine Bacteria Urine Yeast Microbiology Microbiology Results: Microbiology 08/02/21 14:17 Blood Culture - Preliminary Blood - Venous No growth after 24 hours. 08/02/21 10:51 Blood Culture - Preliminary Blood - Venous No growth after 24 hours. Assessment and Plan (1) Toxic metabolic encephalopathy: Status: Acute Plan 56F presented with ams toxic metabolic encephalopathy suspect medication overdose with multiple medication candidates including both patients own meds and her roommates meds opiate overdose unlikely given negative screen and unresponsiveness to narcan previously there was a mention of seizure disorder, neuro appreciated - less likely, but will try eeg when patient more participatory patient mental status slowly improving, but not at baseline yet SLEEP LAB TECHNOLOGIST eval DM with hyperglycemia insulin, monitor, no dka lactic acidosis no evidence of sepsis bipolar clonidine, latuda, seroquel, lithium morbid obesity weight loss recommended dvt prophylaxis - lovenox full code reason for continued hospitalization: still with significant alteration in mental status Quality Stroke Does the patient have a stroke diagnosis?: No VTE Prior VTE?: No VTE Risk Level:: Medical - moderate - high VTE Device Contraindication: Treatment Not Indicated VTE Drug Contraindication: N/A - Med Ordered
--- NOTE | 2021-08-04 13:31 | MHC.SL.SWA ---
Speech Pathologist Impression: Oropharyngeal dysphagia Dysphasia Diet Status: Upgrade Liquid Consistency and Strategies for Safe Swallow: Liquid Intake Recommendation: Thin Liquid Intake Strategies: Small Sips No Straws Liquids by Teaspoon Only Solid Food Consistency: Dietary Recommendations: Pureed (NDD1) Additional Modifications to Solid Foods: Patient seen for bedside dysphagia evaluation this afternoon. No clinical signs of aspiration. Patient tolerated thin liquid, better coordination when given thin liquid by teaspoon. When given soft crackers, patient pocketed bolus, repetitive chewing. Improved clearance with pureed consistency. Recommend upgrade patient from NPO and start on PUREED (NDD1) diet and THIN liquids by teaspoon, pills WHOLE or CRUSHED in PUREE. Patient requires assistance feeding. Aspiration precautions apply. Updated RN, RD, MD via [employer] message. LINE DECORATOR will continue to follow to monitor tolerance and to re-assess for potential upgrade. Oral Medication Intake: Whole or Crushed with Puree Please contact the pharmacy regarding appropriate crushable or liquid drug formulations that are available whenever modified delivery is recommended. Compensatory Strategies and Precautions to be Taken for Safe Swallow: Sitting Upright (90 deg) No Straw Liquids from Spoon Small Bites and Sips Rate of Ingestion Change Oral Check Supervision While Eating and Drinking for Safe Swallow: Total Assistance (1:1) Swallowing Recommended Treatments: Compens. Strategy Educat. Recommendation for Speech: Inpatient Speech Therapy Radiology Teacher Clinican/Clinical Fellow: No Supervisory Statement: I have reviewed and agree with the student/clinical fellow's documentation: N/A Speech Language Pathologist: Vale Shell M.A., [facility]-LINE DECORATOR
[2021-08-04 14:13] LABS: Glucose, Whole Blood 264 mg/dL (60-115)
[2021-08-04] MEDS: Enoxaparin Sodium 40 MG/0.4 ML SYRINGE SUBCUT (14:21)
[2021-08-04 16:33] LABS: Glucose, Whole Blood 238 mg/dL (60-115)
--- NOTE | 2021-08-04 16:47 | PC.NURSE ---
Pt restless and altered. Pt would try to go over bed siderails, easily redirectable. md informed, prn med ordered. camera in room. safety and fall precautions in place. md informed of pt's status. pt repositioning self in bed. wounds noted in assessment. iv flushed and assessed throughout the shift.
[2021-08-04] MEDS: Prazosin HCL 1 MG CAPSULE PO (20:02)
[2021-08-04] MEDS: QUEtiapine Fumarate 200 MG TABLET PO (20:02)
[2021-08-04] MEDS: Acetaminophen 325 MG TABLET 650 MG PO (20:05)
[2021-08-04 21:01] LABS: Glucose, Whole Blood 292 mg/dL (60-115)
[2021-08-04 23:19] LABS: Glucose, Whole Blood 220 mg/dL (60-115)
[2021-08-05 02:02] LABS: Glucose, Whole Blood 205 mg/dL (60-115)
[2021-08-05] MEDS: Insulin Lispro 100 UNIT/ML 3 ML VIAL SUBCUT ×2 (02:08→07:50)
[2021-08-05 04:00] VITALS: BP 142/74; PULSE 78; RESP 16; TEMP 36.4; O2SAT 94
[2021-08-05 06:37] LABS: Glucose, Whole Blood 280 mg/dL (60-115)
[2021-08-05 06:53] LABS: Hematocrit 34.5 % (37.0-47.0); Hemoglobin 11.5 g/dl (12.0-16.0); Mean Corpuscular HGB Conc 33.3 g/dl (31.0-35.0); Mean Corpuscular Hemoglobin 29.1 pg (27.0-33.0); Mean Corpuscular Volume 87.3 fL (80.0-98.0); Mean Platelet Volume 11.5 fL (9.4-12.3); Platelet Count 246 X10*3/uL (160-400); Red Blood Count 3.95 X10*6/uL (4.20-5.50); Red Cell Distribution Width 14.9 % (11.0-16.0); White Blood Count 13.2 X10*3/uL (4.8-10.8)
[2021-08-05 07:15] VITALS: BP 108/58; PULSE 72; RESP 12; TEMP 37.2; O2SAT 96
[2021-08-05 07:16] LABS: Anion Gap 14 (12-20); Blood Urea Nitrogen 20 mg/dL (9-16); Carbon Dioxide 25 mmol/L (22-29); Chloride 104 mmol/L (96-108); Creatinine Clr Calc Pharmacy 70.9; Estimated Glomerular Filt Rate > 60; Glucose Fasting 300 mg/dL (60-99); Sodium 139 mmol/L (135-145)
[2021-08-05 07:33] LABS: Glucose, Whole Blood 295 mg/dL (60-115)
[2021-08-05] MEDS: cloNIDine HCL 0.2 MG TABLET PO (07:51)
[2021-08-05] MEDS: Lurasidone HCl 40 MG TABLET 120 MG PO (07:51)
[2021-08-05] MEDS: Pregabalin 150 MG CAPSULE PO (07:51)
[2021-08-05] MEDS: Lithium Carbonate 300 MG TABLET 150 MG PO (07:51)
[2021-08-05 11:04] LABS: Glucose, Whole Blood 252 mg/dL (60-115)
[2021-08-05 11:15] VITALS: BP 140/74; PULSE 70; RESP 24; TEMP 36.9; O2SAT 98
--- NOTE | 2021-08-05 12:28 | P.DS_ITS ---
DS: Providers Provider Date of Service: 08/05/21 Date of admission: 08/02/21 13:51 Primary care physician: Bri Milligan CNP Consults: 08/02/21 13:58 Consult to Neurology Routine Consulting Provider: [facility] Reason for consultation: recurrent ams, likely meds/drugs, but has ?seizure history DS: Diagnosis Discharge Diagnosis (1) Toxic metabolic encephalopathy: Status: Acute DS: Summary Hospital Course Hospital Course: from initial hpi: Chief Complaint: ams history obtained from ED provider (patient obtunded) 56F was brought to the emergency department by EMS for altered mental status.? Patient was found by her roommate to be unresponsive.? Patient history of substance ins abuse, reported to have been using intranasal heroin (though current tox screen is negative).? Paramedics found patient to have pinpoint pupils, they administered Narcan 4 mg intranasally and then 4 mg IV with no change in mental status.? Patient's roommate was concerned that the patient may have taken some of his own medications which includes baclofen, gabapentin, Lyrica.? Patient has recent admission earlier in July 2021 for similar presentation.? Exact etiology was not determined at that time.? In ED patient was given additional Narcan with no change in mental status. hospital course: Patient was admitted for toxic metabolic encephalopathy suspected due to medication overdose with multiple medications, though unclear which 1 exactly. Opioid overdose was considered unlikely due to negative tox screen and unresponsiveness to Narcan. Seizures also possibility, however, patient was not able to tolerate EEG and postictal time Would have been longer than expected. Patient was given supportive care and mental status returned to baseline after several days. For diabetes with hyperglycemia she was given insulin, she did not have DKA, her sugars became normal. For bipolar disorder she will continue clonidine, Latuda, Seroquel, lithium. For morbid obesity weight loss is recommended. Time Spent with Patient Time attestation: Total time spent providing and/or coordinating discharge services: Discharge coordination time: Greater than 30 minutes Quality: Safe Use of Opioids Does Pt have an Active Cancer Diagnosis on the Problem List?: No Quality: Stroke Does the patient have a stroke diagnosis?: No Physical Exam Vital Signs: Vital Signs: Last Vital Signs Temp 98.5 F 08/05/21 11:15 Pulse 70 08/05/21 11:15 Resp 24 H 08/05/21 11:15 BP 140/74 H 08/05/21 11:15 Pulse Ox 98 08/05/21 11:15 BMI result Body Mass Index 40.7 General: AO X 3, no acute distress Resp: CTA bilateral, no accessory muscles used CVS: S1,S2,RRR GI: soft, non tender, non distended Neuro: motor grossly intact, alert Psych: appropriate affect, appropriate insight DS: Data Data Completed and Pending Completed studies during hospitalization [Text1]: Procedures Detoxification Services for Substance Abuse Treatment (07/15/21) Introduction of Vasopressor into Peripheral Vein, Percutaneous Approach (07/15/21) Labs on day of discharge: Laboratory Results - last 24 hr 08/04/21 08/04/21 08/04/21 14:09 16:29 20:57 WBC RBC Hgb Hct MCV MCH MCHC RDW Plt Count MPV Absolute Nucleated RBC Nucleated RBC % (auto) Sodium Potassium Chloride Carbon Dioxide Anion Gap BUN Creatinine Estim Creat Clear Calc Estimated GFR POC Glucose 264 H 238 H 292 H Fasting Glucose Calcium 08/04/21 08/05/21 08/05/21 23:14 01:57 06:13 WBC 13.2 H RBC 3.95 L Hgb 11.5 L Hct 34.5 L MCV 87.3 MCH 29.1 MCHC 33.3 RDW 14.9 Plt Count 246 MPV 11.5 Absolute Nucleated RBC 0.000 Nucleated RBC % (auto) 0.0 Sodium Potassium Chloride Carbon Dioxide Anion Gap BUN Creatinine Estim Creat Clear Calc Estimated GFR POC Glucose 220 H 205 H Fasting Glucose Calcium 08/05/21 08/05/21 08/05/21 06:13 06:33 07:18 WBC RBC Hgb Hct MCV MCH MCHC RDW Plt Count MPV Absolute Nucleated RBC Nucleated RBC % (auto) Sodium 139 Potassium 4.0 Chloride 104 Carbon Dioxide 25 Anion Gap 14 BUN 20 H Creatinine 0.90 Estim Creat Clear Calc 70.9 Estimated GFR > 60 POC Glucose 280 H 295 H Fasting Glucose 300 H Calcium 9.0 08/05/21 10:57 WBC RBC Hgb Hct MCV MCH MCHC RDW Plt Count MPV Absolute Nucleated RBC Nucleated RBC % (auto) Sodium Potassium Chloride Carbon Dioxide Anion Gap BUN Creatinine Estim Creat Clear Calc Estimated GFR POC Glucose 252 H Fasting Glucose Calcium Preliminary micro results at discharge 08/02/21 14:17 Blood Culture - Preliminary Blood - Venous No growth after 48 hours. 08/02/21 10:51 Blood Culture - Preliminary Blood - Venous No growth after 48 hours. Discharge Plan Discharge Patient Disposition: Home, Self-Care Discharge Diagnosis: ams Referrals: Bri Milligan CNP [Primary Care Provider] - 1 Week Discharge Medications: Continued prazosin 1 mg capsule 1 cap PO BEDTIME 0RF Latuda 120 mg tablet 1 tab PO DAILY 0RF pregabalin 150 mg Capsule 150 mg PO BID 0RF quetiapine [Seroquel] 200 mg Tablet 200 mg PO BEDTIME 0RF lithium carbonate 150 mg Capsule 150 mg PO DAILY 0RF clonidine HCl 0.2 mg Tablet 0.2 mg PO TID PRN (Reason: Anxiety) 0RF lorazepam 0.5 mg Tablet 0.5 mg PO DAILY PRN (Reason: Anxiety) 0RF Discharge Orders: Discharge Order (Routine); Ordered 08/05/21 Ordered By: Stephen Grimaldo Diet: advance to usual diet Activity on Discharge: As tolerated Stand Alone Forms: Patient Portal Discharge page Care Plan Goals: avoid ams Health Concerns: possible od Plan of Treatment: avoid overdose Assessment: see above
--- NOTE | 2021-08-05 13:04 | MHC.CM.PN ---
PT TO DC HOME TODAY WITH NO SERVICES PT TO SELF ARRANGE TRANSPORT
== END 2021-08-05 13:17 | disposition home or self-care (01) | DRG 917 ==
LOC: HO.ED 13:36 → HO.EDOVER 14:05 → HO.ICU 08-03 07:14 → HO.IMC 08-03 16:51
PROVIDERS: Hospitalist; Admitting Provider Internal Medicine; Emergency Provider Emergency Medicine Emergency Medical Services; PCP Nurse Practitioner Family; Visit Provider Internal Medicine
DX: T50.911A Poisoning by multiple unspecified drugs, medicaments and biological substances, accidental (unintentional), initial encounter (principal); G92.8 Other toxic encephalopathy; E87.2 Acidosis; Z68.41 Body mass index [BMI] 40.0-44.9, adult; Y92.009 Unspecified place in unspecified non-institutional (private) residence as the place of occurrence of the external cause; F31.9 Bipolar disorder, unspecified; G47.30 Sleep apnea, unspecified; E11.65 Type 2 diabetes mellitus with hyperglycemia; Z20.822 Contact with and (suspected) exposure to COVID-19; Z88.2 Allergy status to sulfonamides; Z88.5 Allergy status to narcotic agent; Z88.8 Allergy status to other drugs, medicaments and biological substances; Z79.899 Other long term (current) drug therapy
CPT/HCPCS: 36415; 36600; 70450; 71045; 80048; 80053; 80143; 80178; 80179; 80307; 81001; 82077; 82550; 82803; 82947; 83605; 83690; 84146; 84443; 84484; 85025; 85027; 85610; 85730; 87040; 87502; 87635; 92610; 93005; 96361; 96374; 99285; 99291; C1758; J0696; J1170; J1650; J2060; J3010; J3486

== ENCOUNTER 2021-08-21 18:01 | Emergency (ER) | payer MEDICARE, MEDICAID, SELFPAY ==
[2021-08-21 18:14] VITALS: PULSE 99; RESP 20; TEMP 36.4; O2SAT 96; BMI 32.3
--- NOTE | 2021-08-21 18:59 | ED_ITS ---
HPI - Back Pain/Injury General Chief Complaint: Back Pain/Injury Stated Complaint: back pain Time Seen by Provider: 08/21/21 18:50 Source: patient Mode of arrival: ambulatory History of Present Illness HPI Narrative: 56-year-old female with a past medical history of asthma, diabetes, hypertension, IBS, seizures, peripheral neuropathy, chronic back pain, presenting to the ED complaining of acute on chronic back pain times 2-3 weeks. Denies known injury/trauma or fall. Admits pain worse to right low back radiating into right buttock. Denies associated numbness, tingling, weakness, urinary incontinence/retention, fever MD elicited complaint: back pain Onset (ago): week(s) Related Data Home Medications Medication Instructions Recorded Confirmed clonidine HCl 0.2 mg tablet 0.2 mg PO TID PRN Anxiety 07/15/21 08/02/21 lithium carbonate 150 mg capsule 150 mg PO DAILY 07/15/21 08/02/21 lorazepam 0.5 mg tablet 0.5 mg PO DAILY PRN Anxiety 07/15/21 08/02/21 pregabalin 150 mg capsule 150 mg PO BID 07/15/21 08/02/21 quetiapine 200 mg tablet (Seroquel) 200 mg PO BEDTIME 07/15/21 08/02/21 lurasidone 120 mg tablet (Latuda) 1 tab PO DAILY 08/02/21 08/02/21 prazosin 1 mg capsule 1 cap PO BEDTIME 08/02/21 08/02/21 Previous Rx's Medication Instructions Recorded acetaminophen 500 mg tablet 500 mg PO Q6H PRN fever or pain 08/21/21 (Tylenol Extra Strength) #14 tabs cyclobenzaprine 5 mg tablet 5 mg PO Q8H PRN pain (scale score 08/21/21 7-10) 5 days #14 tabs lidocaine 5 % topical patch 1 patch topical DAILY PRN pain #30 08/21/21 (Lidoderm) ea naproxen 500 mg tablet 500 mg PO BID PRN pain 10 days #20 08/21/21 tabs Allergies Allergy/AdvReac Type Severity Reaction Status Date / Time morphine [MORPHINE] Allergy Unknown RASH, vomit Verified 08/21/21 18:14 prednisone Allergy Unknown hives Verified 08/21/21 18:14 Sulfa (Sulfonamide Allergy Unknown UNKNOWN, Verified 08/21/21 18:14 Antibiotics) hives [SULFA (SULFONAMIDE ANTIBIOTICS)] Review of Systems Review of Systems: Constitutional: No Fever, No Chills ENT/Mouth: No Ear Pain, No Nasal Congestion, No sore throat, No Rhinorrhea, No Swallowing Difficulty Cardiovascular: No Chest Pain, No SOB Respiratory: No Cough, No Sputum Gastrointestinal: No Nausea, No Vomiting, No Diarrhea, No Constipation, No Abdominal pain Genitourinary: No Dysuria, No Urinary Frequency, No Hematuria, No Urinary Incontinence/retention, No Flank Pain Musculoskeletal: +back pain, No Myalgias, No Joint Swelling Skin: No Skin Lesions, No rash Neuro: No Weakness, No Numbness, No Paresthesias Yes all other systems are reviewed and are negative [facility] Past Medical History Attestation statement: The following information was validated with the patient. Medical History Asthma Chronic pain Diabetes Hypertension IBS (irritable bowel syndrome) Peripheral neuropathy Seizure Surgical History History of appendectomy Social History Social History Household Members: Unknown / Unable to assess Housing: Unknown / Unable to assess Do you presently have visiting nurse or other home services: No Unable to assess alcohol history related to: Unable to respond Alcohol intake: current Patient Tobacco Use Status: Tobacco use Unknown Substance Use Type: Prescription Drugs Advance Directives: No Advance Directives Information Provided: No service: No Current occupational status: disabled Physical Exam Vital Signs: Vital Signs: Last Vital Signs Temp 97.6 F 08/21/21 18:14 Pulse 99 08/21/21 18:14 Resp 20 08/21/21 18:14 Pulse Ox 96 08/21/21 18:14 O2 Del Method 08/21/21 18:14 BMI result Body Mass Index 32.3 Const: General: cooperative, healthy appearing and no acute distress Orientation/consciousness: patient oriented x3 Limitations: no limitations HEENT: Head: Yes normal to inspection and Yes atraumatic Ears: hearing grossly normal bilaterally General nose exam: Normal external nose present Face and sinus: Yes normal facial exam Eyes: General: appearance normal, both eyes and all related structures EOM: EOMs intact bilaterally Neck: Neck: Yes normal visual inspection, Yes full ROM and Yes no meningeal signs Resp: Effort & Inspection: normal respiratory effort and no respiratory distress Auscultation: clear to auscultation bilaterally Cardio: Rate: regular rate Heart sounds: S1 normal heart sound present and S2 normal heart sound present : General: Yes no CVA tenderness Back/Spine/Pelvis: Other: No midline thoracic/lumbar spinous tenderness/step-off or deformity. + right lumbar paraspinal tenderness and right buttock tenderness to palpation reproducing subjective complaint. No erythema/ecchymosis. + palpable muscle spasming Back: no CVA tenderness Skin: Rashes: no rashes Wounds: no wounds Neuro: Other: Strength intact throughout. No saddle anesthesia. Sensation intact to light touch. Neurovascular intact distally General: patient oriented x3, tone normal and no meningeal signs Gait exam (Neuro): Normal gait present Extrem: General: Yes normal to inspection MDM - Back Pain/Injury MDM Narrative Medical decision making narrative: 56-year-old female with a past medical history of asthma, diabetes, hypertension, IBS, seizures, peripheral neuropathy, chronic back pain, presenting to the ED complaining of acute on chronic back pain times 2-3 weeks. On exam vital signs stable, NAD/nontoxic appearing, no midline spinous tenderness throughout, no red flag symptoms, ambulating with steady gait. No saddle anesthesia. Concern for MSK pain/strain and muscle spasming. Unlikely cauda equina, cord compression, epidural abscess, or fracture, or renal stone/pyelo Plan: Pain control Differential Diagnosis Differential diagnosis: Likely lumbar radiculopathy, sciatica and strain of lumbar region Medical Records Attestation: I reviewed the patient's medical records. Lab Data Attestation: I reviewed the patient's lab results. Discharge Plan Discharge Clinical Impression: Lumbar radiculopathy Patient Disposition: Home, Self-Care Instructions: Lumbar Radiculopathy (ED) Additional Instructions: Your pain is likely musculoskeletal Flexeril is a muscle relaxer, take at night as it makes you drowsy, do not drive, drink alcohol, or operate machinery while taking it Naproxen as an anti-inflammatory / pain medication, take with food Lidoderm patches are numbing patches, apply to painful area In addition take Tylenol at home If symptoms persist or worsen, pain becomes unbearable, you developed urinary retention or incontinence, or weakness return to the ED Prescriptions: New lidocaine [Lidoderm] 5 % adhesive patch,medicated 1 patch topical DAILY MDD remove after 12 hours PRN (Reason: pain) Qty: 30 0RF Rx Instructions: leave on most painful area for up to 12 hrs cyclobenzaprine 5 mg tablet 5 mg PO Q8H PRN (Reason: pain (scale score 7-10)) 5 Days Qty: 14 0RF naproxen 500 mg tablet 500 mg PO BID PRN (Reason: pain) 10 Days Qty: 20 0RF acetaminophen [Tylenol Extra Strength] 500 mg tablet 500 mg PO Q6H PRN (Reason: fever or pain) Qty: 14 0RF No Action prazosin 1 mg capsule 1 cap PO BEDTIME Latuda 120 mg tablet 1 tab PO DAILY pregabalin 150 mg Capsule 150 mg PO BID quetiapine [Seroquel] 200 mg Tablet 200 mg PO BEDTIME lithium carbonate 150 mg Capsule 150 mg PO DAILY clonidine HCl 0.2 mg Tablet 0.2 mg PO TID PRN (Reason: Anxiety) lorazepam 0.5 mg Tablet 0.5 mg PO DAILY PRN (Reason: Anxiety) Referrals: Bri Milligan, HAYDEN [Primary Care Provider] - 1 week
[2021-08-21] MEDS: Cyclobenzaprine HCl 10 MG TABLET PO (19:22)
[2021-08-21] MEDS: Ketorolac Tromethamine 30 MG/ML VIAL IM (19:22)
== END 2021-08-21 19:31 | disposition home or self-care (01) ==
PROVIDERS: Emergency Provider Internal Medicine; PCP Nurse Practitioner Family
DX: M54.16 Radiculopathy, lumbar region (principal); I10 Essential (primary) hypertension; E11.9 Type 2 diabetes mellitus without complications; J45.909 Unspecified asthma, uncomplicated
CPT/HCPCS: 96372; 99284; J1885

== ENCOUNTER 2021-09-02 17:38 | Emergency (ER) | payer MEDICARE, MEDICAID, SELFPAY ==
--- NOTE | ~2021-09-02 | CT_ITS ---
EXAMINATION: CT HEAD WITHOUT CONTRAST CLINICAL INFORMATION: Altered mental status. COMPARISON: None TECHNIQUE: Contiguous axial imaging was performed from the skull base to vertex without intravenous administration of contrast. This CT examination was performed using dose optimization techniques as appropriate, variously including the following: *Automated exposure control *Adjustment of mA and/or kV according to patient size (this includes techniques or standardized protocols for targeted exams where dose is matched to indication/reason for exam; i.e. extremities or head) *Use of iterative reconstruction technique DLP: 813 mGy-cm FINDINGS: There is no evidence of acute intracranial hemorrhage or territorial infarction. No abnormal mass effect or midline shift is seen. [place] to white matter differentiation is well preserved. No extra-axial fluid collections are identified. The ventricles are normal in size. There is no abnormal attenuation within the brain parenchyma. The osseous structures and soft tissues are normal. The mastoid air cells and visualized portions of the paranasal sinuses are well aerated. CT/CT head/brain wo con IMPRESSION: No acute intracranial process seen.
--- NOTE | ~2021-09-02 | XR_ITS ---
EXAMINATION: XR CHEST CLINICAL INFORMATION: Mental status change COMPARISON: Radiographs from 08/02/2021 through 08/03/2021 TECHNIQUE: Frontal view of the chest was obtained. FINDINGS: The cardiomediastinal and hilar contours are within normal limits. The lungs are clear without focal consolidation, pleural effusion or pneumothorax. XR/XR chest 1V IMPRESSION: No acute process identified.
[2021-09-02 17:42] VITALS: BP 121/68; BP 132/70; PULSE 80; PULSE 86; RESP 16; TEMP 37; O2SAT 97; O2SAT 98; BMI 38.8
--- NOTE | 2021-09-02 17:52 | ECG_ITS ---
Test Reason : ALTERED MENTAL STATUS Blood Pressure : / mmHG Vent. Rate : 078 BPM Atrial Rate : 078 BPM P-R Int : 160 ms QRS Dur : 076 ms QT Int : 406 ms P-R-T Axes : 025 000 060 degrees QTc Int : 462 ms Normal sinus rhythm Septal infarct (cited on or before 15-JUL-2021) Abnormal ECG When compared with ECG of 02-AUG-2021 09:36, No significant change was found Referred By: Osvaldo Bowens Electronically Signed By:ZANE DE LA FUENTE MD
--- NOTE | 2021-09-02 17:54 | ED_ITS ---
HPI - Altered Mental Status General Chief Complaint: Altered Mental Status Stated Complaint: ?confusion Time Seen by Provider: 09/02/21 17:47 Source: patient and EMS Mode of arrival: EMS Limitations: no limitations History of Present Illness HPI narrative: 56-year-old female who was brought to emergency department by EMS for evaluation of altered level of consciousness, patient was found by her with confu conner and decreased consciousness, patient had previous episode of similar presentation, patient is taking multiple psych medication, and patient has a history of drug abuse. As per EMS this symptoms has been fluctuating for the last month, mother was diagnosed with dementia in her 50s Patient in the emergency department is awake and alert, oriented to time and place, NIH score is 0 on the initial exam. Related Data Home Medications Medication Instructions Recorded Confirmed clonidine HCl 0.2 mg tablet 0.2 mg PO TID PRN Anxiety 07/15/21 08/02/21 lithium carbonate 150 mg capsule 150 mg PO DAILY 07/15/21 08/02/21 lorazepam 0.5 mg tablet 0.5 mg PO DAILY PRN Anxiety 07/15/21 08/02/21 pregabalin 150 mg capsule 150 mg PO BID 07/15/21 08/02/21 quetiapine 200 mg tablet (Seroquel) 200 mg PO BEDTIME 07/15/21 08/02/21 lurasidone 120 mg tablet (Latuda) 1 tab PO DAILY 08/02/21 08/02/21 prazosin 1 mg capsule 1 cap PO BEDTIME 08/02/21 08/02/21 Previous Rx's Medication Instructions Recorded acetaminophen 500 mg tablet 500 mg PO Q6H PRN fever or pain 08/21/21 (Tylenol Extra Strength) #14 tabs cyclobenzaprine 5 mg tablet 5 mg PO Q8H PRN pain (scale score 08/21/21 7-10) 5 days #14 tabs lidocaine 5 % topical patch 1 patch topical DAILY PRN pain #30 08/21/21 (Lidoderm) ea naproxen 500 mg tablet 500 mg PO BID PRN pain 10 days #20 08/21/21 tabs Allergies Allergy/AdvReac Type Severity Reaction Status Date / Time morphine [MORPHINE] Allergy Unknown RASH, vomit Verified 08/21/21 18:14 prednisone Allergy Unknown hives Verified 08/21/21 18:14 Sulfa (Sulfonamide Allergy Unknown UNKNOWN, Verified 08/21/21 18:14 Antibiotics) hives [SULFA (SULFONAMIDE ANTIBIOTICS)] Review of Systems Review of Systems: Yes Unobtainable due to mental status [facility] Past Medical History Medical History Asthma Chronic pain Diabetes Hypertension IBS (irritable bowel syndrome) Peripheral neuropathy Seizure Surgical History History of appendectomy Social History Social History Household Members: Unknown / Unable to assess Housing: Unknown / Unable to assess Do you presently have visiting nurse or other home services: No Unable to assess alcohol history related to: Unable to respond Alcohol intake: current Patient Tobacco Use Status: Tobacco use Unknown Substance Use Type: Prescription Drugs Advance Directives: No Advance Directives Information Provided: No service: No Current occupational status: disabled Physical Exam ED Vital Signs: Vital Signs - 24 hr 09/02/21 17:42 09/02/21 19:57 09/03/21 00:04 Temperature 98.6 F 98.6 F 98.2 F Pulse Rate 80 77 82 Respiratory Rate 16 16 12 Blood Pressure 121/68 127/69 134/64 Pulse Oximetry 97 96 95 Oxygen Delivery Method Room Air Nasal Cannula Room Air Oxygen Flow Rate 1 BMI result Body Mass Index 38.8 Vital signs have been reviewed as appeared to be correct. Blood pressure normal. Heart rate normal. Respiration rate normal. Temperature normal. Oxygen saturation normal. Appearance: Alert. Oriented X 2 (place and time). No acute distress. Head: Normal external exam. Normocephalic. Atraumatic. No Aguilar signs noted. No raccoon eyes noted Eyes: PERRLA. EOMI. Conjunctiva and sclera normal. Eyelids normal. ENT: TM's Normal. Pharynx normal. Uvula midline. Moist mucous membranes. No trismus noted. No drooling noted. No muffled voice noted. Neck: Normal inspection. Neck supple. FROM. No adenopathy. Thyroid Normal. No meningeal signs. No neck mass noted. CVS: Normal heart rate and rhythm. Heart sound normal. No murmurs noted. Pulses normal throughout. Respiratory: No respiratory distress. Painless inspiration. Breath sounds normal. No wheezes/rales/rhonchi noted. Chest nontender. No accessory muscle usage noted or decreased air movement noted. Abdomen: Soft and nontender. Bowel sounds normal in all 4 quadrants. No distention noted. No organomegaly noted. No visible injury noted. Back: No CVA tenderness. Full range of motion noted. Skin: Skin warm and dry. Normal skin color. Normal skin turgor. No rashes/lesions/lacerations noted. Extremities: No lower extremity edema. Extremities exhibit normal range of motion. Extremities nontender. Neuro: Oriented X 3. Cranial nerve exam: II-XII are grossly intact No motor deficit. No sensory deficit. Reflexes normal. Course Course Course Narrative: 56-year-old female came in for evaluation of increased confusion, patient had similar presentation in the past in the emergency room patient noted to be slightly confused and tearful unable to obtain meaningful history, stable vital signs, labs revealed leukocytosis which is elevated in the past, no obvious source of infection, slight elevation of BUN/creatinine patient possibly dehydrated able to drink p.o. fluids in the emergency department, unremarkable head CT, unremarkable chest x-ray. Urine drug screening testing is unremarkable. A strong family history of dementia mother had early dementia in her early 50s, will start patient on physician observation at 01:00 for further evaluation by case management and possible placement. MDM - Altered Mental Status Lab Data Attestation: I reviewed the patient's lab results. Result diagrams: 09/02/21 18:43 09/02/21 18:43 Labs: Lab Results 09/02/21 09/02/21 09/02/21 Range/Units 18:43 18:43 18:43 WBC 15.9 H (4.8-10.8) X10*3/uL RBC 4.74 (4.20-5.50) X10*6/uL Hgb 13.7 (12.0-16.0) g/dl Hct 40.8 (37.0-47.0) % MCV 86.1 (80.0-98.0) fL MCH 28.9 (27.0-33.0) pg MCHC 33.6 (31.0-35.0) g/dl RDW 15.1 (11.0-16.0) % Plt Count 347 D (160-400) X10*3/uL MPV 10.4 (9.4-12.3) fL Immature Gran % (Auto) 0.5 H (0.0-0.4) % Neut % (Auto) 76.6 H (45-73) % Lymph % (Auto) 17.6 L (20-40) % [place] % (Auto) 4.6 (2-11) % Eos % (Auto) 0.3 (0-4) % Baso % (Auto) 0.4 (0-2) % Lymph # (Auto) 2.8 (1.2-4.9) X10*3/uL [place] # (Auto) 0.7 (0.1-1.2) X10*3/uL Eos # (Auto) 0.0 (0.0-0.4) X10*3/uL Baso # (Auto) 0.1 (0.0-0.2) X10*3/uL Abs Immat Gran (auto) 0.08 H (0.00-0.03) X10*3/uL Absolute Neuts (auto) 12.2 H (2.0-8.3) x10*3/uL Absolute Nucleated RBC 0.000 (0.0-0.012) X10*3/uL Nucleated RBC % (auto) 0.0 (0.0-0.2) /100WBC Sodium 137 (135-145) mmol/L Potassium 4.5 (3.3-5.1) mmol/L Chloride 100 (96-108) mmol/L Carbon Dioxide 25 (22-29) mmol/L Anion Gap 17 (12-20) BUN 38 H D (9-16) mg/dL Creatinine 1.64 H (0.5-1.4) mg/dL Estim Creat Clear Calc 42.5 Estimated GFR 32 Random Glucose 225 H (60-115) mg/dL Calcium 9.0 (8.4-10.2) mg/dL Total Bilirubin 0.6 (0.0-1.0) mg/dL Direct Bilirubin 0.2 (0.0-0.5) mg/dL AST 16 (5-31) U/L ALT 16 (0-31) U/L Alkaline Phosphatase 94 (39-117) U/L Ammonia (13-55) umol/L Troponin I High Sens < 3.5 (<3.5-17.0) ng/L B-Natriuretic Peptide < 10 (<100) pg/mL Total Protein 7.2 (6.5-8.0) g/dL Albumin 4.2 D (3.5-5.0) g/dL Lipase 28 (8-78) U/L Urine Color Urine Appearance Urine pH (5.0-8.0) Ur Specific [place] (1.005-1.025) Urine Protein (NEG-TRACE) MG/DL Urine Glucose (UA) (NEG) MG/DL Urine Ketones (NEG) MG/DL Urine Blood (NEG) Urine Nitrite (NEG) Ur Leukocyte Esterase (NEG) Urine Test (NEGATIVE) Urine Opiates Screen (Not Detect) Urine Fentanyl Screen (Not Detect) Ur Barbiturates Screen (Not Detect) Ur Phencyclidine Scrn (Not Detect) Ur Amphetamines Screen (Not Detect) U Benzodiazepines Scrn (Not Detect) Urine Cocaine Screen (Not Detect) U Marijuana (THC) Screen (Not Detect) Influenza Type A (PCR) (Negative) Influenza Type B (PCR) (Negative) RSV RNA Qual (PCR) (Negative) SARS-CoV-2 RNA (RT-PCR) (Negative) 09/02/21 09/02/21 09/02/21 Range/Units 18:43 18:43 23:05 WBC (4.8-10.8) X10*3/uL RBC (4.20-5.50) X10*6/uL Hgb (12.0-16.0) g/dl Hct (37.0-47.0) % MCV (80.0-98.0) fL MCH (27.0-33.0) pg MCHC (31.0-35.0) g/dl RDW (11.0-16.0) % Plt Count (160-400) X10*3/uL MPV (9.4-12.3) fL Immature Gran % (Auto) (0.0-0.4) % Neut % (Auto) (45-73) % Lymph % (Auto) (20-40) % [place] % (Auto) (2-11) % Eos % (Auto) (0-4) % Baso % (Auto) (0-2) % Lymph # (Auto) (1.2-4.9) X10*3/uL [place] # (Auto) (0.1-1.2) X10*3/uL Eos # (Auto) (0.0-0.4) X10*3/uL Baso # (Auto) (0.0-0.2) X10*3/uL Abs Immat Gran (auto) (0.00-0.03) X10*3/uL Absolute Neuts (auto) (2.0-8.3) x10*3/uL Absolute Nucleated RBC (0.0-0.012) X10*3/uL Nucleated RBC % (auto) (0.0-0.2) /100WBC Sodium (135-145) mmol/L Potassium (3.3-5.1) mmol/L Chloride (96-108) mmol/L Carbon Dioxide (22-29) mmol/L Anion Gap (12-20) BUN (9-16) mg/dL Creatinine (0.5-1.4) mg/dL Estim Creat Clear Calc Estimated GFR Random Glucose (60-115) mg/dL Calcium (8.4-10.2) mg/dL Total Bilirubin (0.0-1.0) mg/dL Direct Bilirubin (0.0-0.5) mg/dL AST (5-31) U/L ALT (0-31) U/L Alkaline Phosphatase (39-117) U/L Ammonia 25 (13-55) umol/L Troponin I High Sens (<3.5-17.0) ng/L B-Natriuretic Peptide (<100) pg/mL Total Protein (6.5-8.0) g/dL Albumin (3.5-5.0) g/dL Lipase (8-78) U/L Urine Color Urine Appearance Urine pH (5.0-8.0) Ur Specific [place] (1.005-1.025) Urine Protein (NEG-TRACE) MG/DL Urine Glucose (UA) (NEG) MG/DL Urine Ketones (NEG) MG/DL Urine Blood (NEG) Urine Nitrite (NEG) Ur Leukocyte Esterase (NEG) Urine Test NEGATIVE (NEGATIVE) Urine Opiates Screen (Not Detect) Urine Fentanyl Screen (Not Detect) Ur Barbiturates Screen (Not Detect) Ur Phencyclidine Scrn (Not Detect) Ur Amphetamines Screen (Not Detect) U Benzodiazepines Scrn (Not Detect) Urine Cocaine Screen (Not Detect) U Marijuana (THC) Screen (Not Detect) Influenza Type A (PCR) NEGATIVE (Negative) Influenza Type B (PCR) NEGATIVE (Negative) RSV RNA Qual (PCR) NEGATIVE (Negative) SARS-CoV-2 RNA (RT-PCR) NEGATIVE (Negative) 09/02/21 09/02/21 Range/Units 23:05 23:06 WBC (4.8-10.8) X10*3/uL RBC (4.20-5.50) X10*6/uL Hgb (12.0-16.0) g/dl Hct (37.0-47.0) % MCV (80.0-98.0) fL MCH (27.0-33.0) pg MCHC (31.0-35.0) g/dl RDW (11.0-16.0) % Plt Count (160-400) X10*3/uL MPV (9.4-12.3) fL Immature Gran % (Auto) (0.0-0.4) % Neut % (Auto) (45-73) % Lymph % (Auto) (20-40) % [place] % (Auto) (2-11) % Eos % (Auto) (0-4) % Baso % (Auto) (0-2) % Lymph # (Auto) (1.2-4.9) X10*3/uL [place] # (Auto) (0.1-1.2) X10*3/uL Eos # (Auto) (0.0-0.4) X10*3/uL Baso # (Auto) (0.0-0.2) X10*3/uL Abs Immat Gran (auto) (0.00-0.03) X10*3/uL Absolute Neuts (auto) (2.0-8.3) x10*3/uL Absolute Nucleated RBC (0.0-0.012) X10*3/uL Nucleated RBC % (auto) (0.0-0.2) /100WBC Sodium (135-145) mmol/L Potassium (3.3-5.1) mmol/L Chloride (96-108) mmol/L Carbon Dioxide (22-29) mmol/L Anion Gap (12-20) BUN (9-16) mg/dL Creatinine (0.5-1.4) mg/dL Estim Creat Clear Calc Estimated GFR Random Glucose (60-115) mg/dL Calcium (8.4-10.2) mg/dL Total Bilirubin (0.0-1.0) mg/dL Direct Bilirubin (0.0-0.5) mg/dL AST (5-31) U/L ALT (0-31) U/L Alkaline Phosphatase (39-117) U/L Ammonia (13-55) umol/L Troponin I High Sens (<3.5-17.0) ng/L B-Natriuretic Peptide (<100) pg/mL Total Protein (6.5-8.0) g/dL Albumin (3.5-5.0) g/dL Lipase (8-78) U/L Urine Color YELLOW Urine Appearance CLEAR Urine pH 5.5 (5.0-8.0) Ur Specific [place] >= 1.030 H (1.005-1.025) Urine Protein TRACE (NEG-TRACE) MG/DL Urine Glucose (UA) NEG (NEG) MG/DL Urine Ketones NEG (NEG) MG/DL Urine Blood NEG (NEG) Urine Nitrite NEG (NEG) Ur Leukocyte Esterase NEG (NEG) Urine Test (NEGATIVE) Urine Opiates Screen Not Detected (Not Detect) Urine Fentanyl Screen Not Detected (Not Detect) Ur Barbiturates Screen Not Detected (Not Detect) Ur Phencyclidine Scrn Not Detected (Not Detect) Ur Amphetamines Screen Not Detected (Not Detect) U Benzodiazepines Scrn Not Detected (Not Detect) Urine Cocaine Screen Not Detected (Not Detect) U Marijuana (THC) Screen Not Detected (Not Detect) Influenza Type A (PCR) (Negative) Influenza Type B (PCR) (Negative) RSV RNA Qual (PCR) (Negative) SARS-CoV-2 RNA (RT-PCR) (Negative) Imaging Data Chest x-ray: Attestation: I personally reviewed and interpreted this imaging study as follows: Radiologist's impression: No acute pathology CT scan - head: Attestation: I personally reviewed and interpreted this imaging study as follows: Radiologist's impression: No acute pathology. Discharge Plan Discharge Clinical Impression: Dementia Patient Disposition: Still a Patient Prescriptions: No Action prazosin 1 mg capsule 1 cap PO BEDTIME Latuda 120 mg tablet 1 tab PO DAILY lidocaine [Lidoderm] 5 % adhesive patch,medicated 1 patch topical DAILY MDD remove after 12 hours PRN (Reason: pain) Qty: 30 0RF Rx Instructions: leave on most painful area for up to 12 hrs cyclobenzaprine 5 mg tablet 5 mg PO Q8H PRN (Reason: pain (scale score 7-10)) 5 Days Qty: 14 0RF naproxen 500 mg tablet 500 mg PO BID PRN (Reason: pain) 10 Days Qty: 20 0RF acetaminophen [Tylenol Extra Strength] 500 mg tablet 500 mg PO Q6H PRN (Reason: fever or pain) Qty: 14 0RF pregabalin 150 mg Capsule 150 mg PO BID quetiapine [Seroquel] 200 mg Tablet 200 mg PO BEDTIME lithium carbonate 150 mg Capsule 150 mg PO DAILY clonidine HCl 0.2 mg Tablet 0.2 mg PO TID PRN (Reason: Anxiety) lorazepam 0.5 mg Tablet 0.5 mg PO DAILY PRN (Reason: Anxiety)
[2021-09-02 18:53] LABS: MANUAL DIFF FLAG NO
[2021-09-02 18:58] LABS: Basophils Absolute Auto 0.1 X10*3/uL (0.0-0.2); Basophils Percent Auto 0.4 % (0-2); Eosinophils Percent Auto 0.3 % (0-4); Hematocrit 40.8 % (37.0-47.0); Hemoglobin 13.7 g/dl (12.0-16.0); Imm Gran Abs Auto 0.08 X10*3/uL (0.00-0.03); Imm Gran Pct Auto 0.5 % (0.0-0.4); Lymphocytes Absolute Auto 2.8 X10*3/uL (1.2-4.9); Lymphocytes Percent Auto 17.6 % (20-40); Mean Corpuscular HGB Conc 33.6 g/dl (31.0-35.0); Mean Corpuscular Hemoglobin 28.9 pg (27.0-33.0); Mean Corpuscular Volume 86.1 fL (80.0-98.0); Mean Platelet Volume 10.4 fL (9.4-12.3); Monocytes Absolute Auto 0.7 X10*3/uL (0.1-1.2); Monocytes Percent Auto 4.6 % (2-11); Neutrophils Absolute Auto 12.2 x10*3/uL (2.0-8.3); Neutrophils Percent Auto 76.6 % (45-73); Platelet Count 347 X10*3/uL (160-400); Red Blood Count 4.74 X10*6/uL (4.20-5.50); Red Cell Distribution Width 15.1 % (11.0-16.0); White Blood Count 15.9 X10*3/uL (4.8-10.8)
[2021-09-02 19:11] LABS: Alanine Aminotransferase 16 U/L (0-31); Albumin Level 4.2 g/dL (3.5-5.0); Alkaline Phosphatase 94 U/L (39-117); Anion Gap 17 (12-20); Aspartate Amino Transferase 16 U/L (5-31); Bilirubin Direct 0.2 mg/dL (0.0-0.5); Bilirubin Total 0.6 mg/dL (0.0-1.0); Blood Urea Nitrogen 38 mg/dL (9-16); Carbon Dioxide 25 mmol/L (22-29); Chloride 100 mmol/L (96-108); Creatinine Clr Calc Pharmacy 42.5; Estimated Glomerular Filt Rate 32; Glucose Random 225 mg/dL (60-115); Lipase 28 U/L (8-78); Potassium 4.5 mmol/L (3.3-5.1); Sodium 137 mmol/L (135-145); Total Protein 7.2 g/dL (6.5-8.0)
[2021-09-02 19:17] LABS: Troponin-I High Sensitivity < 3.5 ng/L (<3.5-17.0)
[2021-09-02 19:32] LABS: Ammonia 25 umol/L (13-55)
[2021-09-02 19:33] LABS: Influenza A PCR NEGATIVE (Negative); Influenza B PCR NEGATIVE (Negative); Resp Syncy Virus RNA Qual PCR NEGATIVE (Negative); SARS COV2 PCR INHOUSE NEGATIVE (Negative)
[2021-09-02 19:57] VITALS: BP 127/69; PULSE 77; RESP 16; TEMP 37; O2SAT 96
[2021-09-02 22:49] LABS: B Type Natriuretic Peptide < 10 pg/mL (<100)
[2021-09-02 23:13] LABS: Appearance Urine CLEAR; Color Urine YELLOW; Glucose Urine UA NEG (NEG); Leukocyte Esterase Urine NEG (NEG); Nitrite Urine NEG (NEG); PH 5.5 (5.0-8.0); Specific Gravity - Urine >= 1.030 (1.005-1.025); Urine Blood NEG (NEG); Urine Ketones NEG (NEG); Urine Protein TRACE MG/DL (NEG-TRACE)
[2021-09-02 23:15] LABS: UPreg QC Valid YES; Urine Pregnancy NEGATIVE (NEGATIVE)
[2021-09-02 23:25] LABS: Amphetamine Screen Urine Not Detected (Not Detect); Barbiturates, Urine Not Detected (Not Detect); Benzodiazepines Screen Urine Not Detected (Not Detect); Cannabinoid Screen Urine Not Detected (Not Detect); Cocaine Screen Urine Not Detected (Not Detect); Fentanyl, urine Not Detected (Not Detect); Opiate Screen Urine Not Detected (Not Detect); Phencyclidine Screen Urine Not Detected (Not Detect)
[2021-09-03] VITALS (7 sets, daily range): BP systolic 130–145; BP diastolic 56–81; PULSE 82–98; RESP 12–18; TEMP 36.7–37.2; O2SAT 94–98
[2021-09-03] MEDS: OLANZapine 5 MG TABLET PO (02:58)
[2021-09-03] MEDS: LORazepam 1 MG TABLET 2 MG PO (04:40)
--- NOTE | 2021-09-03 08:49 | PC.NURSE ---
patient A/o self . patient tearful . mood labile . patient pupils reactive . lungs clear . skin warm ponk and dry . patient reports feeling sad for weeks . no SI plan . positive bowel sounds . patient aware of plan of care .
--- NOTE | 2021-09-03 11:15 | PC.NURSE ---
smart sheet faxed to [facility].
--- NOTE | 2021-09-03 13:58 | PHA.MEDREC ---
Pharmacy Consult ? Medication Reconciliation Pharmacy has completed the medication reconciliation.
--- NOTE | 2021-09-03 14:04 | MHC.CM.ED ---
Received case management consult overnight. Patient caem to the ER due to AMS. Work up has been negative at this time. Physical therapy eval is pending. Patient has a history of being Bipolar and not being compliant with medication. Crisis eval ordered by Lynne LIRA at this time. Case management will follow as needed. Continue to monitor for d/c needs.
--- NOTE | 2021-09-03 14:30 | PC.NURSE ---
rn to rn report given to aris pt to go to the pod..
[2021-09-03] MEDS: LORazepam 0.5 MG TABLET PO (15:57)
[2021-09-03] MEDS: metFORMIN HCl 1,000 MG TABLET 1000 MG PO (20:15)
[2021-09-03] MEDS: Prazosin HCL 1 MG CAPSULE PO (20:15)
[2021-09-03] MEDS: Pregabalin 150 MG CAPSULE PO (20:15)
[2021-09-03] MEDS: QUEtiapine Fumarate 200 MG TABLET PO (20:15)
--- NOTE | 2021-09-04 02:58 | PC.NURSE ---
N completed assessment, recommended psych and neuro consult to ascertain mental status, both consult ordered, patient engaged well with [facility] clinician, will continue to monitor.
[2021-09-04 05:42] VITALS: BP 105/47; PULSE 86; RESP 16; TEMP 36.9; O2SAT 99
--- NOTE | 2021-09-04 06:17 | PC.NURSE ---
Patient slept well, no distress observed/reported, ambulates independently, VSS, pending neuro and psych consult, medication compliant, patient's behavior is non concerning however patient verbalized multiple needs, will continue to monitor.
--- NOTE | 2021-09-04 07:35 | PC.NURSE ---
PT in to see pt. pault eaten. requesting to go home today.
[2021-09-04 07:46] VITALS: BP 105/47; PULSE 86; O2SAT 99
[2021-09-04 08:01] VITALS: BP 99/38; PULSE 88; RESP 12; TEMP 36.2; O2SAT 96
[2021-09-04] MEDS: Pregabalin 150 MG CAPSULE PO (09:32)
[2021-09-04] MEDS: metFORMIN HCl 1,000 MG TABLET 1000 MG PO (09:32)
[2021-09-04] MEDS: Multivitamin TABLET 1 TAB PO (09:32)
[2021-09-04] MEDS: Lithium Carbonate 300 MG TABLET 150 MG PO (10:28)
[2021-09-04] MEDS: Lurasidone HCl 40 MG TABLET 120 MG PO (10:29)
--- NOTE | 2021-09-04 10:29 | PC.NURSE ---
0900 MEDS JUST BROUGHT DOWN FROM PHARMACY
[2021-09-04 12:28] VITALS: BP 132/55; PULSE 84; O2SAT 96
--- NOTE | 2021-09-04 13:02 | MHC.CM.ED ---
Met with pt at request of MD to discuss d/c needs: pt states she resides with a roommate who assists her as needed including with transportation. Pt states she needs help with cleaning her apartment and getting a LEASING PROPERTY MANAGER. Informed pt that she will need to speak with her PCP, Bri Milligan to assist with the paperwork needed for LEASING PROPERTY MANAGER services. Call placed to roommate Jaxson to inform him of d/c plan. He can provide transportation. Updated ED SALLY PATTERSON and RN on plan
--- NOTE | 2021-09-04 13:54 | PM.PSYCN ---
History of Present Illness Date of Service: 09/04/21 Chief Complaint: ?confusion Reason for Consult: dispo decision-making HPI Narrative: per 09/02 ED note: 56-year-old female who was brought to emergency department by EMS for evaluation of altered level of consciousness, patient was found by her with confusion and decreased consciousness, patient had previous episode of similar presentation, patient is taking multiple psych medication, and patient has a history of drug abuse.? As per EMS this symptoms has been fluctuating for the last month, mother was diagnosed with dementia in her 50s Patient in the emergency department is awake and alert, oriented to time and place, NIH score is 0 on the initial exam. see medical notes for additional details of presentation. psychiatry was asked to see this patient to opine as to her suitability for discharge to her own apartment. on interview with MD, pt is calm and cooperative. she is oriented to person, place, and circumstance. she reports it is saturday, august 30, 2021 (it is saturday the ). she is able to learn the true day of the week and date during the interview. she provides a cogent explanation for how she came to the hospital and expresses some insight regarding her memory deficit. she reports living with an ex-partner, now described as her roommate, with whom various staff from the ED have communicated and who has come into the hospital to visit her. she reports he helps her with her medications and with IADLs. she feels she will be able to care for her basic needs if she is discharged from the hospital. she does express the desire for some help at home in order to give her roommate a break from looking after her and also to see a therapist. her requests were conveyed to CARE team staff. she reported already working with [employer]. she denied any psychiatric complaints. [facility] Medical History Asthma Chronic pain Diabetes Hypertension IBS (irritable bowel syndrome) Peripheral neuropathy Seizure Surgical History History of appendectomy Substance History: opiates/fentanyl Diagnostics Vital Signs (24Hr): Vital Signs - 24 hr 09/03/21 14:11 09/03/21 20:11 09/04/21 05:42 Temperature 99.0 F 98.4 F 98.5 F Pulse Rate 98 85 86 Respiratory Rate 17 18 16 Blood Pressure 142/71 H 131/61 105/47 L Pulse Oximetry 98 94 99 Oxygen Delivery Method Room Air Room Air Room Air 09/04/21 07:46 09/04/21 08:01 09/04/21 12:28 Temperature 97.1 F Pulse Rate 86 88 84 Respiratory Rate 12 Blood Pressure 105/47 L 99/38 L 132/55 L Pulse Oximetry 99 96 96 Oxygen Delivery Method Room Air Room Air BMI result Body Mass Index 38.8 Labs Results: 09/02/21 18:43 09/02/21 18:43 Labs: Laboratory Results - last 48 hr 09/02/21 09/02/21 09/02/21 18:43 18:43 18:43 WBC 15.9 H RBC 4.74 Hgb 13.7 Hct 40.8 MCV 86.1 MCH 28.9 MCHC 33.6 RDW 15.1 Plt Count 347 D MPV 10.4 Immature Gran % (Auto) 0.5 H Neut % (Auto) 76.6 H Lymph % (Auto) 17.6 L [place] % (Auto) 4.6 Eos % (Auto) 0.3 Baso % (Auto) 0.4 Lymph # (Auto) 2.8 [place] # (Auto) 0.7 Eos # (Auto) 0.0 Baso # (Auto) 0.1 Abs Immat Gran (auto) 0.08 H Absolute Neuts (auto) 12.2 H Absolute Nucleated RBC 0.000 Nucleated RBC % (auto) 0.0 Sodium 137 Potassium 4.5 Chloride 100 Carbon Dioxide 25 Anion Gap 17 BUN 38 H D Creatinine 1.64 H Estim Creat Clear Calc 42.5 Estimated GFR 32 Random Glucose 225 H Calcium 9.0 Total Bilirubin 0.6 Direct Bilirubin 0.2 AST 16 ALT 16 Alkaline Phosphatase 94 Ammonia Troponin I High Sens < 3.5 B-Natriuretic Peptide < 10 Total Protein 7.2 Albumin 4.2 D Lipase 28 Urine Color Urine Appearance Urine pH Ur Specific [place] Urine Protein Urine Glucose (UA) Urine Ketones Urine Blood Urine Nitrite Ur Leukocyte Esterase Urine Test Urine Opiates Screen Urine Fentanyl Screen Ur Barbiturates Screen Ur Phencyclidine Scrn Ur Amphetamines Screen U Benzodiazepines Scrn [place] Urine Cocaine Screen U Marijuana (THC) Screen Influenza Type A (PCR) Influenza Type B (PCR) RSV RNA Qual (PCR) SARS-CoV-2 RNA (RT-PCR) 09/02/21 09/02/21 09/02/21 18:43 18:43 23:05 WBC RBC Hgb Hct MCV MCH MCHC RDW Plt Count MPV Immature Gran % (Auto) Neut % (Auto) Lymph % (Auto) [place] % (Auto) Eos % (Auto) Baso % (Auto) Lymph # (Auto) [place] # (Auto) Eos # (Auto) Baso # (Auto) Abs Immat Gran (auto) Absolute Neuts (auto) Absolute Nucleated RBC Nucleated RBC % (auto) Sodium Potassium Chloride Carbon Dioxide Anion Gap BUN Creatinine Estim Creat Clear Calc Estimated GFR Random Glucose Calcium Total Bilirubin Direct Bilirubin AST ALT Alkaline Phosphatase Ammonia 25 Troponin I High Sens B-Natriuretic Peptide Total Protein Albumin Lipase Urine Color Urine Appearance Urine pH Ur Specific [place] Urine Protein Urine Glucose (UA) Urine Ketones Urine Blood Urine Nitrite Ur Leukocyte Esterase Urine Test NEGATIVE Urine Opiates Screen Urine Fentanyl Screen Ur Barbiturates Screen Ur Phencyclidine Scrn Ur Amphetamines Screen U Benzodiazepines Scrn [place] Urine Cocaine Screen U Marijuana (THC) Screen Influenza Type A (PCR) NEGATIVE Influenza Type B (PCR) NEGATIVE RSV RNA Qual (PCR) NEGATIVE SARS-CoV-2 RNA (RT-PCR) NEGATIVE 09/02/21 09/02/21 09/03/21 23:05 23:06 20:33 WBC RBC Hgb Hct MCV MCH MCHC RDW Plt Count MPV Immature Gran % (Auto) Neut % (Auto) Lymph % (Auto) [place] % (Auto) Eos % (Auto) Baso % (Auto) Lymph # (Auto) [place] # (Auto) Eos # (Auto) Baso # (Auto) Abs Immat Gran (auto) Absolute Neuts (auto) Absolute Nucleated RBC Nucleated RBC % (auto) Sodium Potassium Chloride Carbon Dioxide Anion Gap BUN Creatinine Estim Creat Clear Calc Estimated GFR Random Glucose Calcium Total Bilirubin Direct Bilirubin AST ALT Alkaline Phosphatase Ammonia Troponin I High Sens B-Natriuretic Peptide Total Protein Albumin Lipase Urine Color YELLOW Urine Appearance CLEAR Urine pH 5.5 Ur Specific [place] >= 1.030 H Urine Protein TRACE Urine Glucose (UA) NEG Urine Ketones NEG Urine Blood NEG Urine Nitrite NEG Ur Leukocyte Esterase NEG Urine Test Urine Opiates Screen Not Detected Urine Fentanyl Screen Not Detected Ur Barbiturates Screen Not Detected Ur Phencyclidine Scrn Not Detected Ur Amphetamines Screen Not Detected U Benzodiazepines Scrn Not Detected [place] 0.20 L Urine Cocaine Screen Not Detected U Marijuana (THC) Screen Not Detected Influenza Type A (PCR) Influenza Type B (PCR) RSV RNA Qual (PCR) SARS-CoV-2 RNA (RT-PCR) Imaging Radiology Impressions: ITS Impressions Chest X-Ray 09/02/21 18:07 IMPRESSION: No acute process identified. Head CT 09/02/21 18:10 IMPRESSION: No acute intracranial process seen. Mental Status Exam Mental Status Exam Narrative: A&O. Overweight, unkempt appearance, appears older than stated age, in casual attire. good eye contact, attentive. No Tics or Tremors. No abnormal involuntary movements. Non-pressured speech, spontaneous with regular rate and rhythm, normal volume and prosody. No prolonged speech latency or dysarthria. Mood is ?good,? affect is flexible. Denies SI/SIB/HI upon inquiry. Denies A/VH or delusional thought content. Thoughts are linear and logical. Question of cognitive/ memory impairment. Insight/ Judgment limited but adequate. Medications Allergies Allergies Allergy/AdvReac Type Severity Reaction Status Date / Time morphine [MORPHINE] Allergy Unknown RASH, vomit Verified 08/21/21 18:14 prednisone Allergy Unknown hives Verified 08/21/21 18:14 Sulfa (Sulfonamide Allergy Unknown UNKNOWN, Verified 08/21/21 18:14 Antibiotics) hives [SULFA (SULFONAMIDE ANTIBIOTICS)] Assessment & Plan Assessment & Plan (1) Toxic metabolic encephalopathy: Status: Acute Code(s): G92.8 - Other toxic encephalopathy Assessment and Plan: likely from polypharmacy and low probability she takes her medications as prescribed. this may be associated with a developing cognitive disorder. Plan F/U with outpt mental health providers. refer for in-home services. this patient is suitable for discharge to home wit the support of her roommate. I spent ___45___ minutes with the patient and/or on the patient floor today, greater than?50% of which was spent counseling/coordinating care.
--- NOTE | 2021-09-04 18:40 | PC.NURSE ---
pt called pod to ask what medications to take for her newly dx dementia. this RN referred to pt discharge instructions from earlier, and told her that no meds were prescribed.... and per MD d/c instructions to follow [facility] recommendations, and f/u with her PCP.
== END 2021-09-04 13:27 | disposition home or self-care (01) ==
PROVIDERS: Emergency Medicine; Nurse Practitioner Family; Emergency Provider Emergency Medicine Emergency Medical Services; PCP Nurse Practitioner Family
DX: R40.4 Transient alteration of awareness (principal); F03.90 Unspecified dementia, unspecified severity, without behavioral disturbance, psychotic disturbance, mood disturbance, and anxiety; R06.02 Shortness of breath; Z79.899 Other long term (current) drug therapy; Z20.822 Contact with and (suspected) exposure to COVID-19
CPT/HCPCS: 0241U; 36415; 70450; 71045; 80048; 80076; 80178; 80307; 81003; 81025; 82140; 83690; 83880; 84484; 85025; 93005; 97161; 99284; 99285

== ENCOUNTER 2021-09-07 11:38 | Inpatient (IN) | payer MEDICARE, MEDICAID, SELFPAY ==
[2021-09-07] VITALS (10 sets, daily range): BP systolic 107–230; BP diastolic 45–106; PULSE 67–102; RESP 13–18; TEMP 36.9–37.3; O2SAT 94–100; BMI 32.5
--- NOTE | ~2021-09-07 | US_ITS ---
EXAMINATION: US RETROPERITONEAL LIMITED (RENAL ONLY) CLINICAL INFORMATION: Acute renal failure. COMPARISON: CT scan of the abdomen and pelvis dated 07/15/2021. TECHNIQUE: Multiple 2-D grayscale and color Doppler ultrasound images of the kidneys were obtained. FINDINGS: RIGHT KIDNEY: 9.2 x 4.9 x 5.4 cm (SAG x AP x TRV). The kidney is normal in size, contour, and echogenicity. Renal cortical thickness is normal. No calculi or focal parenchymal lesions. No hydronephrosis. LEFT KIDNEY: 12.4 x 6.3 x 6.4 cm (SAG x AP x TRV). The kidney is normal in size, contour, and echogenicity. Renal cortical thickness is normal. No intrarenal calculi. Probable cyst in the upper pole measuring 2.2 cm. No hydronephrosis. Doppler showed no abnormal vascular flow. OTHER: Hepatic steatosis. US/US renal BI IMPRESSION: 1. Probable left upper pole renal cyst demonstrating benign features, not well-seen on previous CT findings. No right renal abnormality. 3. Hepatic steatosis.
--- NOTE | ~2021-09-07 | XR_ITS ---
EXAMINATION: XR ABDOMEN KUB CLINICAL INDICATION: Evaluate for metallic foreign body. COMPARISON: CT abdomen pelvis dated 07/15/2021 TECHNIQUE: AP view of the abdomen. FINDINGS: No underlying metallic foreign bodies are identified. Multiple surgical clips are evident in the right midabdomen. EKG leads overlie the chest. Posterior fusion hardware is evident in the lumbar spine. Degenerative spondylosis is evident in the lumbar spine. 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 Nondilated bowel gas pattern. XR/XR KUB IMPRESSION: No unintended metallic foreign body identified.
--- NOTE | ~2021-09-07 | CT_ITS ---
EXAMINATION: CT HEAD WITHOUT CONTRAST CLINICAL INFORMATION: Acute mental status change COMPARISON: Previous head CT most recent 09/02/2021 TECHNIQUE: Contiguous axial imaging was performed from the skull base to vertex without intravenous administration of contrast. This CT examination was performed using dose optimization techniques as appropriate, variously including the following: *Automated exposure control *Adjustment of mA and/or kV according to patient size (this includes techniques or standardized protocols for targeted exams where dose is matched to indication/reason for exam; i.e. extremities or head) *Use of iterative reconstruction technique DLP: 767 mGy-cm FINDINGS: There is no evidence of acute intracranial hemorrhage or territorial infarction. No abnormal mass effect or midline shift is seen. [place] to white matter differentiation is well preserved. No extra-axial fluid collections are identified. The ventricles are normal in size. There is no abnormal attenuation within the brain parenchyma. The osseous structures and soft tissues are normal. The mastoid air cells and visualized portions of the paranasal sinuses are well aerated. CT/CT head/brain wo con IMPRESSION: Unremarkable exam.
--- NOTE | ~2021-09-07 | XR_ITS ---
EXAMINATION: XR CHEST CLINICAL INFORMATION: Chest pain, rule out aspiration. COMPARISON: 09/02/2021 chest radiograph TECHNIQUE: Frontal view of the chest was obtained. FINDINGS: No significant abnormality is noted involving the heart, lungs, mediastinum, bony thorax or soft tissues. XR/XR chest 1V IMPRESSION: No acute cardiopulmonary process.
--- NOTE | ~2021-09-07 | MR_ITS ---
MRI OF THE BRAIN WITHOUT IV CONTRAST INDICATION: Previous abnormal brain imaging. Acute mental status change. COMPARISON: CT head 09/08/2021. Brain MRI 05/19/2019. Brain MRI 11/13/2018. TECHNIQUE: Multiplanar multisequence MR imaging of the brain was obtained without IV contrast. FINDINGS: There is mild chronic microangiopathy. Previously seen cortical/subcortical signal changes on the 11/13/2018 and brain MRI have since resolved. There is no hydrocephalus, extra-axial surface collection, or herniation. The major flow voids at the skull base are preserved. There is no acute infarct on diffusion-weighted imaging. There is no intracranial hemorrhage on the gradient recalled echo acquisition. The midline structures are normal. The cerebellar tonsils are normally positioned. The cerebellum and brainstem are normal. The craniocervical junction is normal. Osseous marrow signal intensity is homogenous. The visualized soft tissues are unremarkable. MR/MR head/brain wo con IMPRESSION: - No acute intracranial findings. No acute infarcts. - There is mild chronic microangiopathy. Previously seen cortical/subcortical signal changes on the 11/13/2018 and brain MRI have since resolved.
--- NOTE | 2021-09-07 11:48 | ED.AMS ---
HPI - Altered Mental Status General Chief Complaint: General Medical Stated Complaint: ALTERED,NON MED COMPLIANT Time Seen by Provider: 09/07/21 11:45 Source: patient and old records reviewed Mode of arrival: EMS Limitations: altered mental status History of Present Illness HPI narrative: 56 yo female with hx of bipolar disorder, sleep apnea, substance abuse, mother had dementia in 50s, here with alteration in mental status again just seen for this cleared by CM and psychiatry has seen neurology for this as well. CT head neg x 3 since July. Likely non compliance with meds as well as possible underlying early cognitive disorder. She comes in with alteration again not taking medications did not renew her lease has nowhere to go per roommate MD complaint: altered mental status, decreased responsiveness and weakness Onset (ago): month(s) Timing confirmed by: other (roommate) Severity: moderate Consistency of symptoms: waxing and waning Context: history of similar presentation Associated symptoms: loss of appetite Related Data Home Medications Medication Instructions Recorded Confirmed lithium carbonate 150 mg capsule 150 mg PO DAILY 07/15/21 09/07/21 lorazepam 0.5 mg tablet 0.5 mg PO DAILY PRN Anxiety 07/15/21 09/07/21 pregabalin 150 mg capsule 150 mg PO BID 07/15/21 09/07/21 quetiapine 200 mg tablet (Seroquel) 200 mg PO BEDTIME 07/15/21 09/07/21 lurasidone 120 mg tablet (Latuda) 1 tab PO DAILY 08/02/21 09/07/21 prazosin 1 mg capsule 1 cap PO BEDTIME 08/02/21 09/07/21 metformin 1,000 mg tablet 1 tab PO BID 09/03/21 09/07/21 multivitamin 1 tab PO DAILY 09/03/21 09/07/21 Previous Rx's Medication Instructions Recorded acetaminophen 500 mg tablet 500 mg PO Q6H PRN fever or pain 08/21/21 (Tylenol Extra Strength) #14 tabs cyclobenzaprine 5 mg tablet 5 mg PO Q8H PRN pain (scale score 08/21/21 7-10) 5 days #14 tabs naproxen 500 mg tablet 500 mg PO BID PRN pain 10 days #20 08/21/21 tabs Allergies Allergy/AdvReac Type Severity Reaction Status Date / Time morphine [MORPHINE] Allergy Unknown RASH, vomit Verified 08/21/21 18:14 prednisone Allergy Unknown hives Verified 08/21/21 18:14 Sulfa (Sulfonamide Allergy Unknown UNKNOWN, Verified 08/21/21 18:14 Antibiotics) hives [SULFA (SULFONAMIDE ANTIBIOTICS)] Review of Systems Review of Systems: ROS unable to be obtained due to altered mental status [facility] Past Medical History Medical History Asthma Bipolar disorder Chronic pain Diabetes Hypertension IBS (irritable bowel syndrome) Peripheral neuropathy Polysubstance abuse Seizure Surgical History History of appendectomy Social History Social History Household Members: Unknown / Unable to assess Housing: Unknown / Unable to assess Do you presently have visiting nurse or other home services: No Unable to assess alcohol history related to: Unable to respond Alcohol intake: never Patient Tobacco Use Status: Tobacco use Unknown Substance Use Type: Prescription Drugs Advance Directives: Yes Advance Directives on File: Yes Advance Directives Date on File: 09/03/21 service: No Current occupational status: disabled Physical Exam ED Vital Signs: Vital Signs - 24 hr 09/07/21 11:51 09/07/21 14:37 Temperature 98.4 F Pulse Rate 68 81 Respiratory Rate 18 14 Blood Pressure 107/45 L 124/69 Pulse Oximetry 98 95 Oxygen Delivery Method Room Air Room Air BMI result Body Mass Index 32.5 Appearance: Alert. making weird clucking noises and saying yes. Mild acute distress. Eyes: Pupils equal, round and reactive to light. ENT: Pharynx mildly dry MM Neck: Normal inspection. Neck supple. CVS: Normal heart rate and rhythm. Pulses normal. Respiratory: No respiratory distress. Breath sounds normal. Abdomen: Soft and nontender. Skin: Skin warm and dry. Normal skin color. Normal skin turgor. Extremities: No lower extremity edema. No calf ttp Neuro: Confused . No motor deficit. No sensory deficit. moving all extremities cannot participate in CN exam Course Course Course Narrative: hyper K treatments in place after fluids will repeat K potter placed, making urine US negative repeat labs pending UA pending signed out Dr. Wood pending repeat labs and likely admission. patient seems to be more awake, tearful, less weak appearing with fluids no UTI chronic leukocytosis, DANY due to poor PO intake and not infection or severe sepsis MDM - Altered Mental Status MDM Narrative Medical decision making narrative: 56 yo female with hx of bipolar disorder, sleep apnea, substance abuse, here with another alteration in [place] not taking medications unable to renew her lease has been seen by psychiatry as well as Neurology for this. At this time labs, UA, will not repeat CT head as she has had 3 negative with these symptoms. Anticipate possible CM vs geriatric psychiatry. Lab Data Result diagrams: 09/07/21 12:36 09/07/21 12:36 Labs: Lab Results 09/07/21 09/07/21 09/07/21 Range/Units 11:53 12:36 12:36 WBC 16.0 H (4.8-10.8) X10*3/uL RBC 4.68 (4.20-5.50) X10*6/uL Hgb 13.4 (12.0-16.0) g/dl Hct 40.6 (37.0-47.0) % MCV 86.8 (80.0-98.0) fL MCH 28.6 (27.0-33.0) pg MCHC 33.0 (31.0-35.0) g/dl RDW 15.2 (11.0-16.0) % Plt Count 352 (160-400) X10*3/uL MPV 10.8 (9.4-12.3) fL Immature Gran % (Auto) 0.5 H (0.0-0.4) % Neut % (Auto) 78.3 H (45-73) % Lymph % (Auto) 16.1 L (20-40) % [place] % (Auto) 4.3 (2-11) % Eos % (Auto) 0.1 (0-4) % Baso % (Auto) 0.7 (0-2) % Lymph # (Auto) 2.6 (1.2-4.9) X10*3/uL [place] # (Auto) 0.7 (0.1-1.2) X10*3/uL Eos # (Auto) 0.0 (0.0-0.4) X10*3/uL Baso # (Auto) 0.1 (0.0-0.2) X10*3/uL Abs Immat Gran (auto) 0.08 H (0.00-0.03) X10*3/uL Absolute Neuts (auto) 12.5 H (2.0-8.3) x10*3/uL Absolute Nucleated RBC 0.000 (0.0-0.012) X10*3/uL Nucleated RBC % (auto) 0.0 (0.0-0.2) /100WBC Sodium 137 (135-145) mmol/L Potassium 6.2 H* D (3.3-5.1) mmol/L Chloride 104 (96-108) mmol/L Carbon Dioxide 20 L (22-29) mmol/L Anion Gap 19 (12-20) BUN 66 H D (9-16) mg/dL Creatinine 2.14 H (0.5-1.4) mg/dL Estim Creat Clear Calc 34.2 Estimated GFR 24 POC Glucose 264 H (60-115) mg/dL Random Glucose 289 H (60-115) mg/dL Calcium 9.6 D (8.4-10.2) mg/dL Magnesium 2.3 (1.6-2.6) mg/dL Total Bilirubin 0.6 (0.0-1.0) mg/dL Direct Bilirubin 0.2 (0.0-0.5) mg/dL AST 21 (5-31) U/L ALT 15 (0-31) U/L Alkaline Phosphatase 96 (39-117) U/L Total Creatine Kinase 34 D (26-140) U/L Total Protein 8.0 (6.5-8.0) g/dL Albumin 4.5 (3.5-5.0) g/dL Urine Color Urine Appearance Urine pH (5.0-8.0) Ur Specific [place] (1.005-1.025) Urine Protein (NEG-TRACE) MG/DL Urine Glucose (UA) (NEG) MG/DL Urine Ketones (NEG) MG/DL Urine Blood (NEG) Urine Nitrite (NEG) Ur Leukocyte Esterase (NEG) Salicylates < 5.0 L (15-30) mg/dL Acetaminophen < 1 (<30) mcg/mL [place] (0.60-1.20) mmol/L Ethyl Alcohol mg/dL COVID-19 (MARLYS) (Negative) COVID-19 Clin Com 09/07/21 09/07/2109/07/22 Range/Units 12:36 12:36 13:40 WBC (4.8-10.8) X10*3/uL RBC (4.20-5.50) X10*6/uL Hgb (12.0-16.0) g/dl Hct (37.0-47.0) % MCV (80.0-98.0) fL MCH (27.0-33.0) pg MCHC (31.0-35.0) g/dl RDW (11.0-16.0) % Plt Count (160-400) X10*3/uL MPV (9.4-12.3) fL Immature Gran % (Auto) (0.0-0.4) % Neut % (Auto) (45-73) % Lymph % (Auto) (20-40) % [place] % (Auto) (2-11) % Eos % (Auto) (0-4) % Baso % (Auto) (0-2) % Lymph # (Auto) (1.2-4.9) X10*3/uL [place] # (Auto) (0.1-1.2) X10*3/uL Eos # (Auto) (0.0-0.4) X10*3/uL Baso # (Auto) (0.0-0.2) X10*3/uL Abs Immat Gran (auto) (0.00-0.03) X10*3/uL Absolute Neuts (auto) (2.0-8.3) x10*3/uL Absolute Nucleated RBC (0.0-0.012) X10*3/uL Nucleated RBC % (auto) (0.0-0.2) /100WBC Sodium (135-145) mmol/L Potassium (3.3-5.1) mmol/L Chloride (96-108) mmol/L Carbon Dioxide (22-29) mmol/L Anion Gap (12-20) BUN (9-16) mg/dL Creatinine (0.5-1.4) mg/dL Estim Creat Clear Calc Estimated GFR POC Glucose (60-115) mg/dL Random Glucose (60-115) mg/dL Calcium (8.4-10.2) mg/dL Magnesium (1.6-2.6) mg/dL Total Bilirubin (0.0-1.0) mg/dL Direct Bilirubin (0.0-0.5) mg/dL AST (5-31) U/L ALT (0-31) U/L Alkaline Phosphatase (39-117) U/L Total Creatine Kinase (26-140) U/L Total Protein (6.5-8.0) g/dL Albumin (3.5-5.0) g/dL Urine Color Urine Appearance Urine pH (5.0-8.0) Ur Specific [place] (1.005-1.025) Urine Protein (NEG-TRACE) MG/DL Urine Glucose (UA) (NEG) MG/DL Urine Ketones (NEG) MG/DL Urine Blood (NEG) Urine Nitrite (NEG) Ur Leukocyte Esterase (NEG) Salicylates (15-30) mg/dL Acetaminophen (<30) mcg/mL [place] 0.49 L (0.60-1.20) mmol/L Ethyl Alcohol < 10 mg/dL COVID-19 (MARLYS) Negative (Negative) COVID-19 Clin Com See Note 09/07/21 Range/Units 15:50 WBC (4.8-10.8) X10*3/uL RBC (4.20-5.50) X10*6/uL Hgb (12.0-16.0) g/dl Hct (37.0-47.0) % MCV (80.0-98.0) fL MCH (27.0-33.0) pg MCHC (31.0-35.0) g/dl RDW (11.0-16.0) % Plt Count (160-400) X10*3/uL MPV (9.4-12.3) fL Immature Gran % (Auto) (0.0-0.4) % Neut % (Auto) (45-73) % Lymph % (Auto) (20-40) % [place] % (Auto) (2-11) % Eos % (Auto) (0-4) % Baso % (Auto) (0-2) % Lymph # (Auto) (1.2-4.9) X10*3/uL [place] # (Auto) (0.1-1.2) X10*3/uL Eos # (Auto) (0.0-0.4) X10*3/uL Baso # (Auto) (0.0-0.2) X10*3/uL Abs Immat Gran (auto) (0.00-0.03) X10*3/uL Absolute Neuts (auto) (2.0-8.3) x10*3/uL Absolute Nucleated RBC (0.0-0.012) X10*3/uL Nucleated RBC % (auto) (0.0-0.2) /100WBC Sodium (135-145) mmol/L Potassium (3.3-5.1) mmol/L Chloride (96-108) mmol/L Carbon Dioxide (22-29) mmol/L Anion Gap (12-20) BUN (9-16) mg/dL Creatinine (0.5-1.4) mg/dL Estim Creat Clear Calc Estimated GFR POC Glucose (60-115) mg/dL Random Glucose (60-115) mg/dL Calcium (8.4-10.2) mg/dL Magnesium (1.6-2.6) mg/dL Total Bilirubin (0.0-1.0) mg/dL Direct Bilirubin (0.0-0.5) mg/dL AST (5-31) U/L ALT (0-31) U/L Alkaline Phosphatase (39-117) U/L Total Creatine Kinase (26-140) U/L Total Protein (6.5-8.0) g/dL Albumin (3.5-5.0) g/dL Urine Color YELLOW Urine Appearance CLEAR Urine pH 5.5 (5.0-8.0) Ur Specific [place] 1.025 (1.005-1.025) Urine Protein TRACE (NEG-TRACE) MG/DL Urine Glucose (UA) 500 H (NEG) MG/DL Urine Ketones NEG (NEG) MG/DL Urine Blood NEG (NEG) Urine Nitrite NEG (NEG) Ur Leukocyte Esterase NEG (NEG) Salicylates (15-30) mg/dL Acetaminophen (<30) mcg/mL [place] (0.60-1.20) mmol/L Ethyl Alcohol mg/dL COVID-19 (MARLYS) (Negative) COVID-19 Clin Com ECG Data ECG #1: Attestation: I personally reviewed and interpreted this ECG as follows: ECG interpretation date: 06/30/22 ECG interpretation time: 13:43 Interpretation: Rate: 77 Rhythm: NSR [place]: normal Normal P waves. Normal VEE. Normal QRS complex. ST T wave : normal no ARTHUR, t waves not tall qTC: normal prior studies: no acute ischemia The study has been interpreted contemporaneously by me. . Discharge Plan Discharge Clinical Impression: Adult failure to thrive, DANY (acute kidney injury), Acute hyperkalemia Altered mental status Qualifiers: Altered mental status type: transient alteration of awareness Qualified Code(s): R40.4 - Transient alteration of awareness Patient Disposition: Admitted As Inpatient
[2021-09-07 11:57] LABS: Glucose, Whole Blood 264 mg/dL (60-115)
[2021-09-07 12:41] LABS: MANUAL DIFF FLAG NO
[2021-09-07 12:43] LABS: Basophils Absolute Auto 0.1 X10*3/uL (0.0-0.2); Basophils Percent Auto 0.7 % (0-2); Eosinophils Percent Auto 0.1 % (0-4); Hematocrit 40.6 % (37.0-47.0); Hemoglobin 13.4 g/dl (12.0-16.0); Imm Gran Abs Auto 0.08 X10*3/uL (0.00-0.03); Imm Gran Pct Auto 0.5 % (0.0-0.4); Lymphocytes Absolute Auto 2.6 X10*3/uL (1.2-4.9); Lymphocytes Percent Auto 16.1 % (20-40); Mean Corpuscular Hemoglobin 28.6 pg (27.0-33.0); Mean Corpuscular Volume 86.8 fL (80.0-98.0); Mean Platelet Volume 10.8 fL (9.4-12.3); Monocytes Absolute Auto 0.7 X10*3/uL (0.1-1.2); Monocytes Percent Auto 4.3 % (2-11); Neutrophils Absolute Auto 12.5 x10*3/uL (2.0-8.3); Neutrophils Percent Auto 78.3 % (45-73); Platelet Count 352 X10*3/uL (160-400); Red Blood Count 4.68 X10*6/uL (4.20-5.50); Red Cell Distribution Width 15.2 % (11.0-16.0)
[2021-09-07 12:51] LABS: Lithium 0.49 mmol/L (0.60-1.20)
[2021-09-07 13:04] LABS: Ethanol < 10 mg/dL
[2021-09-07 13:18] LABS: Alanine Aminotransferase 15 U/L (0-31); Albumin Level 4.5 g/dL (3.5-5.0); Alkaline Phosphatase 96 U/L (39-117); Anion Gap 19 (12-20); Aspartate Amino Transferase 21 U/L (5-31); Bilirubin Direct 0.2 mg/dL (0.0-0.5); Bilirubin Total 0.6 mg/dL (0.0-1.0); Blood Urea Nitrogen 66 mg/dL (9-16); Calcium 9.6 mg/dL (8.4-10.2); Carbon Dioxide 20 mmol/L (22-29); Chloride 104 mmol/L (96-108); Creatinine Clr Calc Pharmacy 34.2; Estimated Glomerular Filt Rate 24; Glucose Random 289 mg/dL (60-115); Magnesium 2.3 mg/dL (1.6-2.6); Potassium 6.2 mmol/L (3.3-5.1); Sodium 137 mmol/L (135-145)
--- NOTE | 2021-09-07 13:18 | ECG_ITS ---
Test Reason : alter mental Blood Pressure : / mmHG Vent. Rate : 077 BPM Atrial Rate : 077 BPM P-R Int : 158 ms QRS Dur : 078 ms QT Int : 372 ms P-R-T Axes : 047 032 060 degrees QTc Int : 420 ms Normal sinus rhythm cannot exclude old septal infarct, but could be from lead placement/body habitus When compared with ECG of 02-SEP-2021 18:22, No significant change was found Referred By: Selma Huber Electronically Signed By:LOUISE URRUTIA
[2021-09-07 13:37] LABS: Acetaminophen LAB < 1 mcg/mL (<30); Salicylate < 5.0 mg/dL (15-30)
[2021-09-07] MEDS: Sodium Bicarbonate 8.4% 50 MEQ/50 ML SYRINGE IVPUSH (13:38)
[2021-09-07] MEDS: Sodium Zirconium Cyclosilicate 10 GM POWD.PACK PO (13:38)
[2021-09-07] MEDS: Calcium Gluconate/NaCl,Iso-Osm 2 GM/100 ML PLAST..BAG IV (13:38)
[2021-09-07] MEDS: 0.9 % Sodium Chloride 1,000 ML 999 ML IVCONT ×2 (13:44→14:44)
[2021-09-07 14:01] LABS: COVID-19 Test Negative (Negative)
--- NOTE | 2021-09-07 14:23 | PHA.MEDREC ---
Pharmacy Consult ? Medication Reconciliation Pharmacy has completed the medication reconciliation. PT recently discharged, med rec done by me this past weekend. Copied from recent discharge record.
[2021-09-07] MEDS: Dextrose 50 % 25 GM/50 ML SYRINGE IVPUSH (14:39)
[2021-09-07] MEDS: Insulin Regular, Human 100 UNIT/ML 3 ML VIAL IVPUSH (14:40)
[2021-09-07 16:02] LABS: Appearance Urine CLEAR; Color Urine YELLOW; Glucose Urine UA 500 MG/DL (NEG); Leukocyte Esterase Urine NEG (NEG); Nitrite Urine NEG (NEG); PH 5.5 (5.0-8.0); Specific Gravity - Urine 1.025 (1.005-1.025); Urine Blood NEG (NEG); Urine Ketones NEG (NEG); Urine Protein TRACE MG/DL (NEG-TRACE)
[2021-09-07 16:09] LABS: VBG Base Excess 1.2 mmol/L; VBG HCO3 25 mmol/L (22-26); VBG pCO2 37 mmHg; VBG pH 7.43 (7.32-7.43); VBG pO2 150 mmHg
[2021-09-07 16:10] LABS: Fentanyl, urine Not Detected (Not Detect)
[2021-09-07 16:20] LABS: Amphetamine Screen Urine Not Detected (Not Detect); Barbiturates, Urine Not Detected (Not Detect); Cannabinoid Screen Urine Not Detected (Not Detect); Cocaine Screen Urine Not Detected (Not Detect); Opiate Screen Urine Not Detected (Not Detect); Phencyclidine Screen Urine Not Detected (Not Detect)
[2021-09-07 16:22] LABS: Venous Blood Gas Refer to POC result
[2021-09-07 16:22] LABS: Lactic Acid 1.7 mmol/L (0.5-2.0)
[2021-09-07 16:29] LABS: Anion Gap 15 (12-20); Blood Urea Nitrogen 60 mg/dL (9-16); Calcium 9.8 mg/dL (8.4-10.2); Carbon Dioxide 26 mmol/L (22-29); Chloride 103 mmol/L (96-108); Estimated Glomerular Filt Rate 28; Glucose Random 282 mg/dL (60-115); Potassium 4.8 mmol/L (3.3-5.1); Sodium 139 mmol/L (135-145)
[2021-09-07 16:51] LABS: Benzodiazepines Screen Urine Not Detected (Not Detect)
--- NOTE | 2021-09-07 17:04 | P.HPHOSP_ITS ---
History of Present Illness Date of Service: 09/07/21 Attending physician on admission: Nisha Velez Chief Complaint: Altered mental status This is a 56-year-old female with history of bipolar disorder, substance abuse sent to the emergency department today with altered mental status. Reportedly not taking her medication. She was admitted to the hospital in July with a similar presentation. She was in the emergency department on September 02 with a similar presentation and that that time she is evaluated by care team and psych her mental status improved and she was discharged home. Today I am unable to obtain any history from the patient. She is moaning but not answering questi ons. Lab work reviewed [place] [id number], acute kidney injury with a creatinine of 2.14 initially with associated hyperkalemia of 6.2 she received Lokelma, calcium gluconate, insulin, dextrose, sodium bicarb as well as IV fluid. Her chemistry was repeated and her hyperkalemia resolved, her creatinine improved to 1.83. According to previous emergency room document ation the patient has a family history of early-onset dementia. Review of Systems Review of Systems: Yes Unobtainable due to mental status Constitutional: Constitutional: Reports chills and Reports fever(s) Neurologic: Reports confusion Psychiatric: Psychiatric: Reports confusion [facility], [facility] Medical History Asthma Bipolar disorder Chronic pain Diabetes Hypertension IBS (irritable bowel syndrome) Peripheral neuropathy Polysubstance abuse Seizure Surgical History History of appendectomy Social History Household Members: Unknown / Unable to assess Housing: Unknown / Unable to assess Do you presently have visiting nurse or other home services: No Unable to assess alcohol history related to: Unable to respond Alcohol intake: never Patient Tobacco Use Status: Tobacco use Unknown Substance Use Type: Prescription Drugs Advance Directives: Yes Advance Directives on File: Yes Advance Directives Date on File: 09/03/21 service: No Current occupational status: disabled Meds Allergies Allergy/AdvReac Type Severity Reaction Status Date / Time morphine [MORPHINE] Allergy Unknown RASH, vomit Verified 08/21/21 18:14 prednisone Allergy Unknown hives Verified 08/21/21 18:14 Sulfa (Sulfonamide Allergy Unknown UNKNOWN, Verified 08/21/21 18:14 Antibiotics) hives [SULFA (SULFONAMIDE ANTIBIOTICS)] Active Medications: Current Medications Acetaminophen (Acetaminophen 325 Mg Tablet) 650 mg PO Q6H PRN PRN Reason: Pain, Mild (Pain Scale 1-3) Dextrose (Dextrose 50 % 25 Gm/50 Ml Syringe) 25 gm IVPUSH Q15M PRN; Protocol PRN Reason: per Hypoglycemia Standing Ord. Docusate Sodium (Docusate Sodium 100 Mg Capsule) 100 mg PO DAILY PRN PRN Reason: Constipation Glucose (Glucose Gel 15 Gm Gel..Gram.) 15 gm PO Q15M PRN; Protocol PRN Reason: per Hypoglycemia Standing Ord. Heparin Sodium (Porcine) (Heparin Sodium,Porcine 5,000 Unit/Ml Vial) 5,000 unit SUBCUT Q12H [facility] Sodium Chloride (Ns) 1,000 mls @ 999 mls/hr IVCONT .Q1H1M ONE Stop: 09/07/21 17:51 Lactated Ringer's (Lr) 1,000 mls @ 100 mls/hr IVCONT .Q10H [facility] Insulin Human Lispro (Insulin Lispro 100 Unit/Ml 3 Ml Vial) 0 unit SUBCUT QIDACHS [facility]; Protocol Non-Formulary Medication ([place] Carbonate) 150 mg PO DAILY [facility] Non-Formulary Medication (Lurasidone [Latuda]) 1 tab PO DAILY [facility] Pharmacy Consult (Consult Rx Perform Med Rec) 1 each MISCELLANE ONCE PRN PRN Reason: Consult order Sodium Chloride (0.9 % Sodium Chloride Flush 3 Ml Syringe) 3 ml IVFLUSH QSHIFT [facility] Home Medications Medication Instructions Recorded Confirmed Last Taken Type lithium carbonate 150 mg capsule 150 mg PO DAILY 07/15/21 09/07/21 09/03/21 History lorazepam 0.5 mg tablet 0.5 mg PO DAILY PRN Anxiety 07/15/21 09/07/21 Unknown History pregabalin 150 mg capsule 150 mg PO BID 07/15/21 09/07/21 09/03/21 History quetiapine 200 mg tablet (Seroquel) 200 mg PO BEDTIME 07/15/21 09/07/21 09/01/21 History lurasidone 120 mg tablet (Latuda) 1 tab PO DAILY 08/02/21 09/07/21 09/03/21 History prazosin 1 mg capsule 1 cap PO BEDTIME 08/02/21 09/07/21 09/02/21 History metformin 1,000 mg tablet 1 tab PO BID 09/03/21 09/07/21 09/03/21 History multivitamin 1 tab PO DAILY 09/03/21 09/07/21 09/03/21 History Physical Exam Vital Signs and Narrative: Vital Signs: Last Vital Signs Temp 98.4 F 09/07/21 11:51 Pulse 81 09/07/21 14:37 Resp 14 09/07/21 14:37 BP 124/69 09/07/21 14:37 Pulse Ox 95 09/07/21 14:37 O2 Del Method 09/07/21 14:37 BMI result Body Mass Index 32.5 Const: Other: Patient is observed lying in bed, initially she answered a few simple questions but then began moaning General: confusion and lethargic Orientation/consciousness: confusion and lethargic HEENT: Other: Face flushed Dry mucous membranes Resp: Effort & Inspection: normal respiratory effort Auscultation: diminished lung sounds Cardio: Rate: regular rate Heart sounds: S1 normal heart sound present and S2 normal heart sound present GI: Inspection: No distended and Yes obesity Palpation (GI): Soft to palpation and nontender Neuro: Other: Unable to assess due to mental status. Patient was initially following simple commands and was able to lift all 4 extremities. General: confusion Extrem: General: Yes no pedal edema Results Labs CBC and Chem 7: 09/07/21 12:36 09/07/21 16:01 Labs: Laboratory Results - last 24 hr 09/07/21 09/07/21 09/07/21 11:53 12:36 12:36 MCV 86.8 MCH 28.6 MCHC 33.0 RDW 15.2 Plt Count 352 MPV 10.8 Immature Gran % (Auto) 0.5 H Neut % (Auto) 78.3 H Lymph % (Auto) 16.1 L [place] % (Auto) 4.3 Eos % (Auto) 0.1 Baso % (Auto) 0.7 Lymph # (Auto) 2.6 [place] # (Auto) 0.7 Eos # (Auto) 0.0 Baso # (Auto) 0.1 Abs Immat Gran (auto) 0.08 H Absolute Neuts (auto) 12.5 H Absolute Nucleated RBC 0.000 Nucleated RBC % (auto) 0.0 VBG pH VBG pCO2 VBG pO2 VBG HCO3 VBG O2 Saturation VBG Base Excess Anion Gap 19 Estim Creat Clear Calc 34.2 Estimated GFR 24 POC Glucose 264 H Random Glucose 289 H Lactic Acid Calcium 9.6 D Magnesium 2.3 Total Bilirubin 0.6 Direct Bilirubin 0.2 AST 21 ALT 15 Alkaline Phosphatase 96 Total Creatine Kinase 34 D Total Protein 8.0 Albumin 4.5 Urine Color Urine Appearance Urine pH Ur Specific [place] Urine Protein Urine Glucose (UA) Urine Ketones Urine Blood Urine Nitrite Ur Leukocyte Esterase Salicylates < 5.0 L Urine Opiates Screen Urine Fentanyl Screen Acetaminophen < 1 Ur Barbiturates Screen Ur Phencyclidine Scrn Ur Amphetamines Screen U Benzodiazepines Scrn [place] Urine Cocaine Screen U Marijuana (THC) Screen Ethyl Alcohol COVID-19 (MARLYS) COVID-19 [facility] 09/07/21 09/07/21 09/07/21 12:36 12:36 13:40 MCV MCH MCHC RDW Plt Count MPV Immature Gran % (Auto) Neut % (Auto) Lymph % (Auto) [place] % (Auto) Eos % (Auto) Baso % (Auto) Lymph # (Auto) [place] # (Auto) Eos # (Auto) Baso # (Auto) Abs Immat Gran (auto) Absolute Neuts (auto) Absolute Nucleated RBC Nucleated RBC % (auto) VBG pH VBG pCO2 VBG pO2 VBG HCO3 VBG O2 Saturation VBG Base Excess Anion Gap Estim Creat Clear Calc Estimated GFR POC Glucose Random Glucose Lactic Acid Calcium Magnesium Total Bilirubin Direct Bilirubin AST ALT Alkaline Phosphatase Total Creatine Kinase Total Protein Albumin Urine Color Urine Appearance Urine pH Ur Specific [place] Urine Protein Urine Glucose (UA) Urine Ketones Urine Blood Urine Nitrite Ur Leukocyte Esterase Salicylates Urine Opiates Screen Urine Fentanyl Screen Acetaminophen Ur Barbiturates Screen Ur Phencyclidine Scrn Ur Amphetamines Screen U Benzodiazepines Scrn [place] 0.49 L Urine Cocaine Screen U Marijuana (THC) Screen Ethyl Alcohol < 10 COVID-19 (MARLYS) Negative COVID-19 [facility] See Note 09/07/21 09/07/21 09/07/21 15:50 15:50 16:01 MCV MCH MCHC RDW Plt Count MPV Immature Gran % (Auto) Neut % (Auto) Lymph % (Auto) [place] % (Auto) Eos % (Auto) Baso % (Auto) Lymph # (Auto) [place] # (Auto) Eos # (Auto) Baso # (Auto) Abs Immat Gran (auto) Absolute Neuts (auto) Absolute Nucleated RBC Nucleated RBC % (auto) VBG pH VBG pCO2 VBG pO2 VBG HCO3 VBG O2 Saturation VBG Base Excess Anion Gap 15 Estim Creat Clear Calc 40.0 Estimated GFR 28 POC Glucose Random Glucose 282 H Lactic Acid Calcium 9.8 Magnesium Total Bilirubin Direct Bilirubin AST ALT Alkaline Phosphatase Total Creatine Kinase Total Protein Albumin Urine Color YELLOW Urine Appearance CLEAR Urine pH 5.5 Ur Specific [place] 1.025 Urine Protein TRACE Urine Glucose (UA) 500 H Urine Ketones NEG Urine Blood NEG Urine Nitrite NEG Ur Leukocyte Esterase NEG Salicylates Urine Opiates Screen Not Detected Urine Fentanyl Screen Not Detected Acetaminophen Ur Barbiturates Screen Not Detected Ur Phencyclidine Scrn Not Detected Ur Amphetamines Screen Not Detected U Benzodiazepines Scrn Not Detected [place] Urine Cocaine Screen Not Detected U Marijuana (THC) Screen Not Detected Ethyl Alcohol COVID-19 (MARLYS) COVID-19 [facility] 09/07/21 09/07/21 16:02 16:05 MCV MCH MCHC RDW Plt Count MPV Immature Gran % (Auto) Neut % (Auto) Lymph % (Auto) [place] % (Auto) Eos % (Auto) Baso % (Auto) Lymph # (Auto) [place] # (Auto) Eos # (Auto) Baso # (Auto) Abs Immat Gran (auto) Absolute Neuts (auto) Absolute Nucleated RBC Nucleated RBC % (auto) VBG pH 7.43 VBG pCO2 37 VBG pO2 150 VBG HCO3 25 VBG O2 Saturation 100.0 VBG Base Excess 1.2 Anion Gap Estim Creat Clear Calc Estimated GFR POC Glucose Random Glucose Lactic Acid 1.7 Calcium Magnesium Total Bilirubin Direct Bilirubin AST ALT Alkaline Phosphatase Total Creatine Kinase Total Protein Albumin Urine Color Urine Appearance Urine pH Ur Specific [place] Urine Protein Urine Glucose (UA) Urine Ketones Urine Blood Urine Nitrite Ur Leukocyte Esterase Salicylates Urine Opiates Screen Urine Fentanyl Screen Acetaminophen Ur Barbiturates Screen Ur Phencyclidine Scrn Ur Amphetamines Screen U Benzodiazepines Scrn [place] Urine Cocaine Screen U Marijuana (THC) Screen Ethyl Alcohol COVID-19 (MARLYS) COVID-19 [facility] Imaging Radiologist's Impressions: Impressions Chest X-Ray 09/07/21 13:16 IMPRESSION: No acute cardiopulmonary process. Renal Ultrasound 09/07/21 15:16 IMPRESSION: 1. Probable left upper pole renal cyst demonstrating benign features, not well-seen on previous CT findings. No right renal abnormality. 3. Hepatic steatosis. Assessment and Plan (1) Altered mental status: Qualifiers: Altered mental status type: transient alteration of awareness Qualified Code(s): R40.4 - Transient alteration of awareness Status: Acute (2) DANY (acute kidney injury): Status: Acute (3) Acute hyperkalemia: Status: Acute Plan This is a 56-year-old female with diabetes, bipolar disorder, hypertension, hyperlipidemia, peripheral neuropathy, asthma, chronic pain syndrome, history of seizure disorder, polysubstance abuse, multiple previous admissions for altered mental status brought into the emergency department for the same Toxic Metabolic encephalopathy Possibly in part secondary to DANY ?Underlying undiagnosed dementia tox screen negative, etoh level negative No source of infection identified patient afebrile, UA, CXR negative no focal neurological deficits appreciated although difficult to complete full neurologic exam neurology consult neuro checks DANY Patient appears dehydrated on exam, likely secondary to hypovolemia creatinine 1.8, baseline .8 Renal ultrasound unremarkable hold nephrotoxins IVF Follow renal function Hyperkalemia Potassium above 6 on arrival Resolved with treatment in the ED h/o seizure disorder not currently on seizure meds seizure precautions DM with neuropathy SSI, POCs hold metformin peripheral neuropathy hold pregabalin bipolar disorder lithium level subtherapeutic continue lithium (follow level given DANY), latuda hold seroquel, ativan due to sedation, consider restarting as mental status improves psych eval to assist with med management DVT ppx - heparin Code status - presumed full code HCP Jaxson Walton or Liseth Cruz Patient will likely need 2 midnight stay in the hospital for workup due to altered mental status and treatment for DANY Quality Stroke Does the patient have a stroke diagnosis?: No VTE Prior VTE?: No VTE Risk Level:: Medical - moderate - high VTE Device Contraindication: N/A - Device Ordered VTE Drug Contraindication: N/A - Med Ordered
[2021-09-07] MEDS: Lactated Ringers 1,000 ML 100 ML IVCONT (18:36)
[2021-09-07 19:35] LABS: Glucose, Whole Blood 235 mg/dL (60-115)
[2021-09-07] MEDS: Heparin Sodium,Porcine 5,000 UNIT/ML VIAL 5000 UNIT SUBCUT (20:49)
[2021-09-07] MEDS: Insulin Lispro 100 UNIT/ML 3 ML VIAL SUBCUT (20:49)
--- NOTE | 2021-09-07 20:56 | PC.NURSE ---
Pt BP on L 213/106, then 229/86, on R 223/72, Hospitalist made aware, hydralazine to be ordered.
[2021-09-07] MEDS: hydrALAZINE HCl 20 MG/ML VIAL 5 MG IVPUSH (21:21)
[2021-09-07 23:14] LABS: Anion Gap 16 (12-20); Blood Urea Nitrogen 51 mg/dL (9-16); Calcium 9.5 mg/dL (8.4-10.2); Carbon Dioxide 24 mmol/L (22-29); Chloride 105 mmol/L (96-108); Creatinine Clr Calc Pharmacy 47.2; Estimated Glomerular Filt Rate 34; Glucose Random 241 mg/dL (60-115); Potassium 4.7 mmol/L (3.3-5.1); Sodium 140 mmol/L (135-145)
[2021-09-07 23:20] LABS: Troponin-I High Sensitivity < 3.5 ng/L (<3.5-17.0)
--- NOTE | 2021-09-08 | EEG_ITS ---
This is a 16-channel EEG with an EKG lead. The patient is drowsy during the tracing. Background EEG rhythm is 7 to 8 hertz, 5 to 50 microvolt posteriorly, lower amplitude fast anteriorly. Frequently slightly slow rhythm is noted. No definite sharp wave spikes, asymmetry or paroxysmal tendency noted. Cardiac lead does not reveal any significant abnormality. IMPRESSION: Generalized slowing with no epileptic discharges noted. MD MICHELLE Bhardwaj/CHIARA / [id number]
[2021-09-08 05:17] VITALS: BP 150/68; PULSE 82; RESP 15; O2SAT 97
[2021-09-08] MEDS: Lactated Ringers 1,000 ML 100 ML IVCONT ×2 (05:18→20:25)
[2021-09-08] MEDS: Heparin Sodium,Porcine 5,000 UNIT/ML VIAL 5000 UNIT SUBCUT ×2 (05:50→16:37)
[2021-09-08] MEDS: Acetaminophen 325 MG TABLET 650 MG PO (05:50)
[2021-09-08 06:58] LABS: Hematocrit 38.6 % (37.0-47.0); Mean Corpuscular HGB Conc 33.7 g/dl (31.0-35.0); Mean Corpuscular Hemoglobin 28.6 pg (27.0-33.0); Mean Platelet Volume 10.4 fL (9.4-12.3); Platelet Count 396 X10*3/uL (160-400); Red Blood Count 4.54 X10*6/uL (4.20-5.50); Red Cell Distribution Width 14.9 % (11.0-16.0); White Blood Count 19.4 X10*3/uL (4.8-10.8)
[2021-09-08 07:24] LABS: Anion Gap 17 (12-20); Blood Urea Nitrogen 41 mg/dL (9-16); Calcium 9.7 mg/dL (8.4-10.2); Carbon Dioxide 23 mmol/L (22-29); Chloride 106 mmol/L (96-108); Creatinine Clr Calc Pharmacy 51.4; Estimated Glomerular Filt Rate 38; Glucose Random 304 mg/dL (60-115); Potassium 4.8 mmol/L (3.3-5.1); Sodium 141 mmol/L (135-145)
[2021-09-08 07:38] VITALS: BP 160/61; PULSE 80; RESP 14; TEMP 36.9; O2SAT 97
--- NOTE | 2021-09-08 07:38 | PC.NURSE ---
pt found on ambulance blankets from arrival. saturated in urine. pt cleaned and new linen on bed. pt repositioned in bed and sat up. pt refusing breakfast at this time. aware of plan of care for admission denied having any questions at this time. pct at bedside for poc.
[2021-09-08] MEDS: Insulin Lispro 100 UNIT/ML 3 ML VIAL SUBCUT ×4 (07:54→20:25)
[2021-09-08 08:15] LABS: Glucose, Whole Blood 261 mg/dL (60-115)
[2021-09-08] MEDS: Lithium Carbonate 300 MG TABLET 150 MG PO (08:23)
[2021-09-08] MEDS: Lurasidone HCl 40 MG TABLET 120 MG PO (08:23)
--- NOTE | 2021-09-08 10:08 | PC.NURSE ---
attempt to call report no answer. tiger sent
--- NOTE | 2021-09-08 10:26 | PC.NURSE ---
second attempt to call for report. no answer. additional tiger sent
--- NOTE | 2021-09-08 10:35 | PC.NURSE ---
report given to alexander marina
[2021-09-08 11:02] VITALS: BP 168/80; PULSE 75; RESP 20; TEMP 36.8; O2SAT 98
--- NOTE | 2021-09-08 11:04 | MHC.CM.PN ---
Attempted to meet with patient in regards to discharge planning. Nursing care being provided. Will attempt to meet again. Continue to monitor for d/c needs.
--- NOTE | 2021-09-08 11:38 | P.PNIM_ITS ---
Subjective Subjective Date of Service: 09/08/21 <NAHOMY Jean - Last Filed: 09/08/21 11:51> 09/08/21 <Michaelle Gutierres MD - Last Filed: 09/08/21 16:34> Interval History: Seen and examined this morning Follow-up for altered mental status Patient appears to be somewhat more coherent this morning Reports that she is not feeling well but is unable to describe any specific issues This morning she knows she is at [facility] and is able to provide some history about her baseline medical conditions <NAHOMY Jean - Last Filed: 09/08/21 11:51> Review of Systems Review of Systems: Yes all other systems are reviewed and are negative <NAHOMY Jean - Last Filed: 09/08/21 11:51> Constitutional Constitutional: Denies chills and Denies fever(s) <NAHOMY Jean - Last Filed: 09/08/21 11:51> Cardiovascular Cardiovascular: Denies chest pain, Denies palpitations and Denies dyspnea <NAHOMY Jean - Last Filed: 09/08/21 11:51> Respiratory Respiratory: Denies cough and Denies dyspnea <NAHOMY Jean - Last Filed: 09/08/21 11:51> Gastrointestinal Gastrointestinal: Denies abdominal pain, Denies diarrhea, Denies nausea and Denies vomiting <NAHOMY Jean - Last Filed: 09/08/21 11:51> Neurologic Neurologic: Reports confusion <NAHOMY Jean - Last Filed: 09/08/21 11:51> Psychiatric Psychiatric: Reports confusion <NAHOMY Jean - Last Filed: 09/08/21 11:51> Endocrine Endocrine: Denies palpitations <NAHOMY Jean - Last Filed: 09/08/21 11:51> Physical Exam 2 Vital Signs: Vital Signs: Last Vital Signs Temp 98.2 F 09/08/21 11:02 Pulse 75 09/08/21 11:02 Resp 20 09/08/21 11:02 BP 168/80 H 09/08/21 11:02 Pulse Ox 98 09/08/21 11:02 O2 Del Method 09/08/21 11:02 BMI result Body Mass Index 32.5 <NAHOMY Jean - Last Filed: 09/08/21 11:51> Const: Other: More awake today, more coherent. Following most commands, answering questions appropriately <NAHOMY Jean - Last Filed: 09/08/21 11:51> General: cooperative, comfortable, alert, awake and confusion <NAHOMY Jean - Last Filed: 09/08/21 11:51> Nutritional Appearance: overweight <NAHOMY Jean - Last Filed: 09/08/21 11:51> Orientation/consciousness: oriented to person, oriented to place and confusion <NAHOMY Jean - Last Filed: 09/08/21 11:51> HEENT: Other: Face flushed Dry mucous membranes <NAHOMY Jean - Last Filed: 09/08/21 11:51> Resp: Effort & Inspection: normal respiratory effort <NAHOMY Jean - Last Filed: 09/08/21 11:51> Auscultation: diminished lung sounds <NAHOMY Jean - Last Filed: 09/08/21 11:51> Cardio: Rate: regular rate <NAHOMY Jean - Last Filed: 09/08/21 11:51> Heart sounds: S1 normal heart sound present and S2 normal heart sound present <NAHOMY Jean - Last Filed: 09/08/21 11:51> GI: Inspection: No distended and Yes obesity <NAHOMY Jean - Last Filed: 09/08/21 11:51> Palpation (GI): Soft to palpation and nontender <NAHOMY Jean - Last Filed: 09/08/21 11:51> Neuro: Other: difficult to assess but no focal deficits appreciated able to move all 4 extremities spontaneously <NAHOMY Jean - Last Filed: 09/08/21 11:51> General: oriented to person, oriented to place and confusion <NAHOMY Jean - Last Filed: 09/08/21 11:51> Cranial nerves: Yes Midline tongue present <NAHOMY Jean - Last Filed: 09/08/21 11:51> Extrem: General: Yes no pedal edema <NAHOMY Jean - Last Filed: 09/08/21 11:51> Objective Data Active Medications Acetaminophen (Acetaminophen 325 Mg Tablet) 650 mg PO Q6H PRN PRN Reason: Pain, Mild (Pain Scale 1-3) Last Admin: 09/08/21 05:50 Dose: 650 mg Documented By: ROGE Dextrose (Dextrose 50 % 25 Gm/50 Ml Syringe) 25 gm IVPUSH Q15M PRN; Protocol PRN Reason: per Hypoglycemia Standing Ord. Docusate Sodium (Docusate Sodium 100 Mg Capsule) 100 mg PO DAILY PRN PRN Reason: Constipation Glucose (Glucose Gel 15 Gm Gel..Gram.) 15 gm PO Q15M PRN; Protocol PRN Reason: per Hypoglycemia Standing Ord. Heparin Sodium (Porcine) (Heparin Sodium,Porcine 5,000 Unit/Ml Vial) 5,000 unit SUBCUT Q12H [facility] Last Admin: 09/08/21 05:50 Dose: 5,000 unit Documented By: ROGE Lactated Ringer's (Lr) 1,000 mls @ 100 mls/hr IVCONT .Q10H [facility] Last Admin: 09/08/21 05:18 Dose: 100 mls/hr Documented By: ROGE Insulin Human Lispro (Insulin Lispro 100 Unit/Ml 3 Ml Vial) 0 unit SUBCUT QIDACHS [facility]; Protocol Last Admin: 09/08/21 07:54 Dose: 6 unit Documented By: DELFINO [place] Carbonate ([place] Carbonate 300 Mg Tablet) 150 mg PO DAILY [facility] Last Admin: 09/08/21 08:23 Dose: 150 mg Documented By: DELFINO Lurasidone HCl (Lurasidone Hcl 40 Mg Tablet) 120 mg PO DAILY [facility] Last Admin: 09/08/21 08:23 Dose: 120 mg Documented By: DELFINO Pharmacy Consult (Consult Rx Perform Med Rec) 1 each MISCELLANE ONCE PRN PRN Reason: Consult order Sodium Chloride (0.9 % Sodium Chloride Flush 3 Ml Syringe) 3 ml IVFLUSH QSHIFT [facility] Last Admin: 09/08/21 07:41 Dose: Not Given Documented By: PRIMITIVO Non-Admin Reason: IV Running <NAHOMY Jean - Last Filed: 09/08/21 11:51> Labs CBC & Chem 7: : 09/08/21 06:51 09/08/21 06:51 <NAHOMY Jean - Last Filed: 09/08/21 11:51> Labs: Laboratory Results - last 24 hr 09/07/21 09/07/21 09/07/21 11:53 12:36 12:36 MCV 86.8 MCH 28.6 MCHC 33.0 RDW 15.2 Plt Count 352 MPV 10.8 Immature Gran % (Auto) 0.5 H Neut % (Auto) 78.3 H Lymph % (Auto) 16.1 L [place] % (Auto) 4.3 Eos % (Auto) 0.1 Baso % (Auto) 0.7 Lymph # (Auto) 2.6 [place] # (Auto) 0.7 Eos # (Auto) 0.0 Baso # (Auto) 0.1 Abs Immat Gran (auto) 0.08 H Absolute Neuts (auto) 12.5 H Absolute Nucleated RBC 0.000 Nucleated RBC % (auto) 0.0 VBG pH VBG pCO2 VBG pO2 VBG HCO3 VBG O2 Saturation VBG Base Excess Anion Gap 19 Estim Creat Clear Calc 34.2 Estimated GFR 24 POC Glucose 264 H Random Glucose 289 H Lactic Acid Calcium 9.6 D Magnesium 2.3 Total Bilirubin 0.6 Direct Bilirubin 0.2 AST 21 ALT 15 Alkaline Phosphatase 96 Total Creatine Kinase 34 D Troponin I High Sens Total Protein 8.0 Albumin 4.5 Urine Color Urine Appearance Urine pH Ur Specific [place] Urine Protein Urine Glucose (UA) Urine Ketones Urine Blood Urine Nitrite Ur Leukocyte Esterase Salicylates < 5.0 L Urine Opiates Screen Urine Fentanyl Screen Acetaminophen < 1 Ur Barbiturates Screen Ur Phencyclidine Scrn Ur Amphetamines Screen U Benzodiazepines Scrn [place] Urine Cocaine Screen U Marijuana (THC) Screen Ethyl Alcohol COVID-19 (MARLYS) COVID-19 Clin Com 09/07/21 09/07/21 09/07/21 12:36 12:36 13:40 MCV MCH MCHC RDW Plt Count MPV Immature Gran % (Auto) Neut % (Auto) Lymph % (Auto) [place] % (Auto) Eos % (Auto) Baso % (Auto) Lymph # (Auto) [place] # (Auto) Eos # (Auto) Baso # (Auto) Abs Immat Gran (auto) Absolute Neuts (auto) Absolute Nucleated RBC Nucleated RBC % (auto) VBG pH VBG pCO2 VBG pO2 VBG HCO3 VBG O2 Saturation VBG Base Excess Anion Gap Estim Creat Clear Calc Estimated GFR POC Glucose Random Glucose Lactic Acid Calcium Magnesium Total Bilirubin Direct Bilirubin AST ALT Alkaline Phosphatase Total Creatine Kinase Troponin I High Sens Total Protein Albumin Urine Color Urine Appearance Urine pH Ur Specific [place] Urine Protein Urine Glucose (UA) Urine Ketones Urine Blood Urine Nitrite Ur Leukocyte Esterase Salicylates Urine Opiates Screen Urine Fentanyl Screen Acetaminophen Ur Barbiturates Screen Ur Phencyclidine Scrn Ur Amphetamines Screen U Benzodiazepines Scrn [place] 0.49 L Urine Cocaine Screen U Marijuana (THC) Screen Ethyl Alcohol < 10 COVID-19 (MARLYS) Negative COVID-19 [employer] See Note 09/07/21 09/07/21 09/07/21 15:50 15:50 16:01 MCV MCH MCHC RDW Plt Count MPV Immature Gran % (Auto) Neut % (Auto) Lymph % (Auto) [place] % (Auto) Eos % (Auto) Baso % (Auto) Lymph # (Auto) [place] # (Auto) Eos # (Auto) Baso # (Auto) Abs Immat Gran (auto) Absolute Neuts (auto) Absolute Nucleated RBC Nucleated RBC % (auto) VBG pH VBG pCO2 VBG pO2 VBG HCO3 VBG O2 Saturation VBG Base Excess Anion Gap 15 Estim Creat Clear Calc 40.0 Estimated GFR 28 POC Glucose Random Glucose 282 H Lactic Acid Calcium 9.8 Magnesium Total Bilirubin Direct Bilirubin AST ALT Alkaline Phosphatase Total Creatine Kinase Troponin I High Sens Total Protein Albumin Urine Color YELLOW Urine Appearance CLEAR Urine pH 5.5 Ur Specific [place] 1.025 Urine Protein TRACE Urine Glucose (UA) 500 H Urine Ketones NEG Urine Blood NEG Urine Nitrite NEG Ur Leukocyte Esterase NEG Salicylates Urine Opiates Screen Not Detected Urine Fentanyl Screen Not Detected Acetaminophen Ur Barbiturates Screen Not Detected Ur Phencyclidine Scrn Not Detected Ur Amphetamines Screen Not Detected U Benzodiazepines Scrn Not Detected [place] Urine Cocaine Screen Not Detected U Marijuana (THC) Screen Not Detected Ethyl Alcohol COVID-19 (MARLYS) COVID-19 [employer] 09/07/21 09/07/21 09/07/21 16:02 16:05 19:26 MCV MCH MCHC RDW Plt Count MPV Immature Gran % (Auto) Neut % (Auto) Lymph % (Auto) [place] % (Auto) Eos % (Auto) Baso % (Auto) Lymph # (Auto) [place] # (Auto) Eos # (Auto) Baso # (Auto) Abs Immat Gran (auto) Absolute Neuts (auto) Absolute Nucleated RBC Nucleated RBC % (auto) VBG pH 7.43 VBG pCO2 37 VBG pO2 150 VBG HCO3 25 VBG O2 Saturation 100.0 VBG Base Excess 1.2 Anion Gap Estim Creat Clear Calc Estimated GFR POC Glucose 235 H Random Glucose Lactic Acid 1.7 Calcium Magnesium Total Bilirubin Direct Bilirubin AST ALT Alkaline Phosphatase Total Creatine Kinase Troponin I High Sens Total Protein Albumin Urine Color Urine Appearance Urine pH Ur Specific [place] Urine Protein Urine Glucose (UA) Urine Ketones Urine Blood Urine Nitrite Ur Leukocyte Esterase Salicylates Urine Opiates Screen Urine Fentanyl Screen Acetaminophen Ur Barbiturates Screen Ur Phencyclidine Scrn Ur Amphetamines Screen U Benzodiazepines Scrn [place] Urine Cocaine Screen U Marijuana (THC) Screen Ethyl Alcohol COVID-19 (MARLYS) COVID-19 [facility] 09/07/21 09/07/21 09/08/21 22:53 22:53 06:51 MCV 85.0 MCH 28.6 MCHC 33.7 RDW 14.9 Plt Count 396 MPV 10.4 Immature Gran % (Auto) Neut % (Auto) Lymph % (Auto) [place] % (Auto) Eos % (Auto) Baso % (Auto) Lymph # (Auto) [place] # (Auto) Eos # (Auto) Baso # (Auto) Abs Immat Gran (auto) Absolute Neuts (auto) Absolute Nucleated RBC 0.000 Nucleated RBC % (auto) 0.0 VBG pH VBG pCO2 VBG pO2 VBG HCO3 VBG O2 Saturation VBG Base Excess Anion Gap 16 Estim Creat Clear Calc 47.2 Estimated GFR 34 POC Glucose Random Glucose 241 H Lactic Acid Calcium 9.5 Magnesium Total Bilirubin Direct Bilirubin AST ALT Alkaline Phosphatase Total Creatine Kinase Troponin I High Sens < 3.5 Total Protein Albumin Urine Color Urine Appearance Urine pH Ur Specific [place] Urine Protein Urine Glucose (UA) Urine Ketones Urine Blood Urine Nitrite Ur Leukocyte Esterase Salicylates Urine Opiates Screen Urine Fentanyl Screen Acetaminophen Ur Barbiturates Screen Ur Phencyclidine Scrn Ur Amphetamines Screen U Benzodiazepines Scrn [place] Urine Cocaine Screen U Marijuana (THC) Screen Ethyl Alcohol COVID-19 (MARLYS) COVID-19 Clin Com 09/08/21 09/08/21 06:51 07:37 MCV MCH MCHC RDW Plt Count MPV Immature Gran % (Auto) Neut % (Auto) Lymph % (Auto) [place] % (Auto) Eos % (Auto) Baso % (Auto) Lymph # (Auto) [place] # (Auto) Eos # (Auto) Baso # (Auto) Abs Immat Gran (auto) Absolute Neuts (auto) Absolute Nucleated RBC Nucleated RBC % (auto) VBG pH VBG pCO2 VBG pO2 VBG HCO3 VBG O2 Saturation VBG Base Excess Anion Gap 17 Estim Creat Clear Calc 51.4 Estimated GFR 38 POC Glucose 261 H Random Glucose 304 H Lactic Acid Calcium 9.7 Magnesium Total Bilirubin Direct Bilirubin AST ALT Alkaline Phosphatase Total Creatine Kinase Troponin I High Sens Total Protein Albumin Urine Color Urine Appearance Urine pH Ur Specific [place] Urine Protein Urine Glucose (UA) Urine Ketones Urine Blood Urine Nitrite Ur Leukocyte Esterase Salicylates Urine Opiates Screen Urine Fentanyl Screen Acetaminophen Ur Barbiturates Screen Ur Phencyclidine Scrn Ur Amphetamines Screen U Benzodiazepines Scrn [place] Urine Cocaine Screen U Marijuana (THC) Screen Ethyl Alcohol COVID-19 (MARLYS) COVID-19 Clin Com <NAHOMY Jean - Last Filed: 09/08/21 11:51> Assessment and Plan (1) Altered mental status: Status: Acute <NAHOMY Jean - Last Filed: 09/08/21 11:51> (2) DANY (acute kidney injury): Status: Acute <NAHOMY Jean - Last Filed: 09/08/21 11:51> Assessment and Plan: This is a 56-year-old female with diabetes, bipolar disorder, hypertension, hyperlipidemia, peripheral neuropathy, asthma, chronic pain syndr ome, history of seizure disorder, polysubstance abuse, multiple previous admissions for altered mental status brought into the emergency department for the same Toxic Metabolic encephalopathy workup ongoing Possibly in part secondary to DANY ?Underlying undiagnosed dementia brain CT negative tox screen negative, etoh level negative No source of infection identified patient afebrile, UA, CXR negative no focal neurological deficits appreciated -neurology consult -neuro checks -EEG pending -psych consult pending DANY Patient appears dehydrated on exam, likely secondary to hypovolemia creatinine improving Renal ultrasound unremarkable hold nephrotoxins continue IVF Follow renal function Hyperkalemia Potassium above 6 on arrival Resolved with treatment in the ED h/o seizure disorder not currently on seizure meds seizure precautions -EEG pending DM with neuropathy SSI, POCs hold metformin peripheral neuropathy hold pregabalin bipolar disorder lithium level subtherapeutic continue lithium (follow level given DANY), latuda hold seroquel, ativan due to sedation, consider restarting as mental status improves psych eval to assist with med management DVT ppx - heparin Code status - presumed full code HCP Jaxson Walton or Liseth Cruz Attending- dr. gutierres Patient requires ongoing inpatient hospitalization due to DANY, workup for encephalopathy. <NAHOMY Jean - Last Filed: 09/08/21 11:51> Quality Stroke Does the patient have a stroke diagnosis?: No <NAHOMY Jean - Last Filed: 09/08/21 11:51> VTE Prior VTE?: No <NAHOMY Jean - Last Filed: 09/08/21 11:51> VTE Risk Level:: Medical - moderate - high <NAHOMY Jean - Last Filed: 09/08/21 11:51> VTE Device Contraindication: N/A - Device Ordered <NAHOMY Jean - Last Filed: 09/08/21 11:51> VTE Drug Contraindication: N/A - Med Ordered <NAHOMY Jean - Last Filed: 09/08/21 11:51>
--- NOTE | 2021-09-08 11:52 | P.CNNE_ITS ---
History of Present Illness Data of Consult Service Date: 09/08/21 Primary Care Provider: Bri Milligan CNP [facility] Reason for consult: Change in mental status 56 years old woman with complex previous medical psychiatric and neurological history with multiple problems of unknown etiology. She has been admitted in this hospital with a seizure-like episode and then also with unresponsiveness. Her previous brain MRI in 2019 was quite abnormal revealing extensive white matter signal abnormalities either suggestive of encephalitis or reversible vasoconstrictive syndrome. At that time she was sent to [facility] for further evaluation but I am not sure if any definite diagnosis was made. She also had history of drug abuse and opiate abuse. She was brought back to hospital change in mental status. When I asked her why she was here, she reported ?dementia?. Review of Systems Review of Systems: Could not be done with her PMFSH Past Medical History Medical History Asthma Bipolar disorder Chronic pain Diabetes Hypertension IBS (irritable bowel syndrome) Peripheral neuropathy Polysubstance abuse Seizure Surgical History Surgical History History of appendectomy Social History Social History Household Members: Other Household Members Other:: roommate Housing: Apartment Do you presently have visiting nurse or other home services: No Unable to assess alcohol history related to: Unable to respond Alcohol intake: never Patient Tobacco Use Status: Tobacco use Unknown Use of substances other than those prescribed or required for medical reasons: No Substance Use Type: Prescription Drugs Have you been hit, kicked, punched, or otherwise hurt by someone within the past year? If so, by whom?: No Do you feel safe in your current relationship?: No Current Relationship Is there a partner from a previous relationship who is making you feel unsafe now?: No Are you made to feel afraid or neglected: No Advance Directives: Yes Advance Directives on File: Yes Advance Directives Date on File: 09/03/21 Do you have thoughts of harming others: None Do you have a plan to hurt others: No Plan Recently lost weight without trying: No Eating poorly because of decreased appetite: No Nutrition Risks: No Nutritional Risk Patient : No : No Poor oral hygiene: No service: No Current occupational status: disabled Meds Allergies Allergy/AdvReac Type Severity Reaction Status Date / Time morphine [MORPHINE] Allergy Unknown RASH, vomit Verified 08/21/21 18:14 prednisone Allergy Unknown hives Verified 08/21/21 18:14 Sulfa (Sulfonamide Allergy Unknown UNKNOWN, Verified 08/21/21 18:14 Antibiotics) hives [SULFA (SULFONAMIDE ANTIBIOTICS)] Active Medications: Current Medications Acetaminophen (Acetaminophen 325 Mg Tablet) 650 mg PO Q6H PRN PRN Reason: Pain, Mild (Pain Scale 1-3) Last Admin: 09/08/21 05:50 Dose: 650 mg Dextrose (Dextrose 50 % 25 Gm/50 Ml Syringe) 25 gm IVPUSH Q15M PRN; Protocol PRN Reason: per Hypoglycemia Standing Ord. Docusate Sodium (Docusate Sodium 100 Mg Capsule) 100 mg PO DAILY PRN PRN Reason: Constipation Glucose (Glucose Gel 15 Gm Gel..Gram.) 15 gm PO Q15M PRN; Protocol PRN Reason: per Hypoglycemia Standing Ord. Heparin Sodium (Porcine) (Heparin Sodium,Porcine 5,000 Unit/Ml Vial) 5,000 unit SUBCUT Q12H [facility] Last Admin: 09/08/21 05:50 Dose: 5,000 unit Lactated Ringer's (Lr) 1,000 mls @ 100 mls/hr IVCONT .Q10H [facility] Last Admin: 09/08/21 05:18 Dose: 100 mls/hr Insulin Human Lispro (Insulin Lispro 100 Unit/Ml 3 Ml Vial) 0 unit SUBCUT QIDACHS [facility]; Protocol Last Admin: 09/08/21 07:54 Dose: [address] [place] Carbonate ([place] Carbonate 300 Mg Tablet) 150 mg PO DAILY [facility] Last Admin: 09/08/21 08:23 Dose: 150 mg Lurasidone HCl (Lurasidone Hcl 40 Mg Tablet) 120 mg PO DAILY [facility] Last Admin: 09/08/21 08:23 Dose: 120 mg Pharmacy Consult (Consult Rx Perform Med Rec) 1 each MISCELLANE ONCE PRN PRN Reason: Consult order Sodium Chloride (0.9 % Sodium Chloride Flush 3 Ml Syringe) 3 ml IVFLUSH QSHIFT [facility] Last Admin: 09/08/21 07:41 Dose: Not Given Home Medications Medication Instructions Recorded Confirmed Last Taken Type lithium carbonate 150 mg capsule 150 mg PO DAILY 07/15/21 09/07/21 09/03/21 History lorazepam 0.5 mg tablet 0.5 mg PO DAILY PRN Anxiety 07/15/21 09/07/21 Unknown History pregabalin 150 mg capsule 150 mg PO BID 07/15/21 09/07/21 09/03/21 History quetiapine 200 mg tablet (Seroquel) 200 mg PO BEDTIME 07/15/21 09/07/21 09/01/21 History lurasidone 120 mg tablet (Latuda) 1 tab PO DAILY 08/02/21 09/07/21 09/03/21 History prazosin 1 mg capsule 1 cap PO BEDTIME 08/02/21 09/07/21 09/02/21 History metformin 1,000 mg tablet 1 tab PO BID 09/03/21 09/07/21 09/03/21 History multivitamin 1 tab PO DAILY 09/03/21 09/07/21 09/03/21 History Physical Exam Vital Signs: Vital Signs: Last Vital Signs Temp 98.2 F 09/08/21 11:02 Pulse 75 09/08/21 11:02 Resp 20 09/08/21 11:02 BP 168/80 H 09/08/21 11:02 Pulse Ox 98 09/08/21 11:02 O2 Del Method 09/08/21 11:02 BMI result Body Mass Index 32.5 Neuro: Other: Minimally responsive not answering questions. Eyes Marita open. There is no staring in space but she was not making eye contact. She was not following commands. Face seems symmetrical. There was no arm or leg jerking movements. Plantars were flat. Deep tendon reflexes are absent. Results Labs CBC & Chem 7: 09/08/21 06:51 09/08/21 06:51 Labs: Short CBC 09/07/21 09/08/21 Range/Units 12:36 06:51 WBC 16.0 H 19.4 H (4.8-10.8) X10*3/uL Hgb 13.4 13.0 (12.0-16.0) g/dl Hct 40.6 38.6 (37.0-47.0) % Plt Count 352 396 (160-400) X10*3/uL BMP 09/07/21 09/07/21 09/07/21 12:36 16:01 22:53 Sodium 137 139 140 Potassium 6.2 H* D 4.8 D 4.7 Chloride 104 103 105 Carbon Dioxide 20 L 26 24 BUN 66 H D 60 H 51 H Creatinine 2.14 H 1.83 H 1.55 H Calcium 9.6 D 9.8 9.5 09/08/21 06:51 Sodium 141 Potassium 4.8 Chloride 106 Carbon Dioxide 23 BUN 41 H Creatinine 1.42 H Calcium 9.7 Cardiac Enzymes 09/07/21 Range/Units 12:36 Total Creatine Kinase 34 D (26-140) U/L Liver Function 09/07/21 Range/Units 12:36 Total Bilirubin 0.6 (0.0-1.0) mg/dL Direct Bilirubin 0.2 (0.0-0.5) mg/dL AST 21 (5-31) U/L ALT 15 (0-31) U/L Alkaline Phosphatase 96 (39-117) U/L Albumin 4.5 (3.5-5.0) g/dL Urine 09/07/21 Range/Units 15:50 Urine Color YELLOW Urine Appearance CLEAR Urine pH 5.5 (5.0-8.0) Ur Specific [place] 1.025 (1.005-1.025) Urine Protein TRACE (NEG-TRACE) MG/DL Urine Glucose (UA) 500 H (NEG) MG/DL Noncontrast head CT did not reveal any Assessment and Plan (1) Altered mental status: Qualifiers: Altered mental status type: transient alteration of awareness Qualified Code(s): R40.4 - Transient alteration of awareness Status: Acute 56 years old woman with complex previous medical and psychiatric history including admission with quite abnormal brain MRI not fully explained and suspicion of seizure disorder. Previously, I suspected either encephalitis or vasoconstrictive syndrome from exposure to a chemical agent or drug. At this time she was not fully responsive to her examination in etiology was unclear. I would recommend obtaining and brain MRI again at least without contrast to look at her brain again. An EEG is also recommended to rule out epileptic encephalopathy. Procedures Date of Service Date of Service: 09/08/21
[2021-09-08 11:53] LABS: Glucose, Whole Blood 214 mg/dL (60-115)
[2021-09-08 13:42] LABS: Thyroid Stimulating Hormone 0.87 uIU/mL (0.32-4.0)
[2021-09-08 15:02] LABS: Vitamin B12 > 2000 pg/mL (200-900)
[2021-09-08 16:00] VITALS: BP 160/69; PULSE 74; RESP 17; TEMP 36.4; O2SAT 95
[2021-09-08 16:28] LABS: Glucose, Whole Blood 217 mg/dL (60-115)
[2021-09-08] MEDS: LORazepam 2 MG/ML VIAL 0.5 MG IVPUSH (16:36)
[2021-09-08 20:00] VITALS: BP 155/70; PULSE 76; RESP 17; TEMP 36.8; O2SAT 94
[2021-09-08 21:03] LABS: Glucose, Whole Blood 206 mg/dL (60-115)
[2021-09-09] VITALS: BP 150/79; PULSE 80; RESP 16; TEMP 36.4; O2SAT 95
[2021-09-09] MEDS: Acetaminophen 325 MG TABLET 650 MG PO ×2 (00:36→06:23)
[2021-09-09] MEDS: LORazepam 0.5 MG TABLET PO (01:49)
[2021-09-09 03:56] VITALS: BP 156/65; PULSE 77; RESP 18; TEMP 36.5; O2SAT 95
[2021-09-09] MEDS: Lactated Ringers 1,000 ML 100 ML IVCONT (06:25)
[2021-09-09] MEDS: Heparin Sodium,Porcine 5,000 UNIT/ML VIAL 5000 UNIT SUBCUT ×2 (06:26→16:36)
[2021-09-09 07:38] LABS: Glucose, Whole Blood 244 mg/dL (60-115)
[2021-09-09 08:00] VITALS: BP 176/83; PULSE 87; RESP 18; TEMP 36.6; O2SAT 93
[2021-09-09] MEDS: Lithium Carbonate 300 MG TABLET 150 MG PO (08:14)
[2021-09-09] MEDS: Lurasidone HCl 40 MG TABLET 120 MG PO (08:15)
[2021-09-09] MEDS: Insulin Lispro 100 UNIT/ML 3 ML VIAL SUBCUT ×4 (08:15→20:35)
[2021-09-09 08:28] LABS: Hematocrit 36.7 % (37.0-47.0); Hemoglobin 12.7 g/dl (12.0-16.0); Mean Corpuscular HGB Conc 34.6 g/dl (31.0-35.0); Mean Corpuscular Hemoglobin 29.9 pg (27.0-33.0); Mean Corpuscular Volume 86.4 fL (80.0-98.0); Mean Platelet Volume 11.7 fL (9.4-12.3); Red Blood Count 4.25 X10*6/uL (4.20-5.50); Red Cell Distribution Width 14.9 % (11.0-16.0); White Blood Count 12.5 X10*3/uL (4.8-10.8)
[2021-09-09 08:29] LABS: Platelet Count 247 X10*3/uL (160-400)
[2021-09-09 08:49] LABS: Anion Gap 16 (12-20); Blood Urea Nitrogen 24 mg/dL (9-16); Carbon Dioxide 23 mmol/L (22-29); Chloride 102 mmol/L (96-108); Estimated Glomerular Filt Rate 48; Glucose Random 235 mg/dL (60-115); Potassium 4.5 mmol/L (3.3-5.1); Sodium 136 mmol/L (135-145)
[2021-09-09 11:28] LABS: Glucose, Whole Blood 238 mg/dL (60-115)
[2021-09-09 11:54] VITALS: BP 186/87; PULSE 86; RESP 18; TEMP 36.7; O2SAT 95
--- NOTE | 2021-09-09 12:37 | P.PNIM_ITS ---
Subjective Subjective Date of Service: 09/09/21 Interval History: Seen and examined this morning Follow-up for encephalopathy More awake and this morning, able to provide history Did not sleep well overnight otherwise has no specific complaints Review of Systems Review of Systems: Yes all other systems are reviewed and are negative Constitutional Constitutional: Denies chills and Denies fever(s) Cardiovascular Cardiovascular: Denies chest pain, Denies palpitations and Denies dyspnea Respiratory Respiratory: Denies cough and Denies dyspnea Gastrointestinal Gastrointestinal: Denies abdominal pain, Reports diarrhea, Denies nausea and Denies vomiting Endocrine Endocrine: Denies palpitations Physical Exam Vital Signs: Vital Signs: Last Vital Signs Temp 98.1 F 09/09/21 11:54 Pulse 86 09/09/21 11:54 Resp 18 09/09/21 11:54 BP 186/87 H 09/09/21 11:54 Pulse Ox 95 09/09/21 11:54 O2 Del Method 09/09/21 11:54 BMI result Body Mass Index 32.5 Const: General: cooperative, comfortable, alert and awake Nutritional Appearance: overweight Orientation/consciousness: patient oriented x3 Resp: Effort & Inspection: normal respiratory effort and able to speak in complete sentences Auscultation: diminished lung sounds Cardio: Rate: regular rate Heart sounds: S1 normal heart sound present and S2 normal heart sound present GI: Inspection: No distended and Yes obesity Palpation (GI): Soft to palpation and nontender Neuro: Other: No focal neurological deficits appreciated at this time General: patient oriented x3 Extrem: General: Yes no pedal edema Psych: Affect: Blunted affect present Objective Data Active Medications Acetaminophen (Acetaminophen 325 Mg Tablet) 650 mg PO Q6H PRN PRN Reason: Pain, Mild (Pain Scale 1-3) Last Admin: 09/09/21 06:23 Dose: 650 mg Documented By: HORACIO Dextrose (Dextrose 50 % 25 Gm/50 Ml Syringe) 25 gm IVPUSH Q15M PRN; Protocol PRN Reason: per Hypoglycemia Standing Ord. Docusate Sodium (Docusate Sodium 100 Mg Capsule) 100 mg PO DAILY PRN PRN Reason: Constipation Glucose (Glucose Gel 15 Gm Gel..Gram.) 15 gm PO Q15M PRN; Protocol PRN Reason: per Hypoglycemia Standing Ord. Heparin Sodium (Porcine) (Heparin Sodium,Porcine 5,000 Unit/Ml Vial) 5,000 unit SUBCUT Q12H [facility] Last Admin: 09/09/21 06:26 Dose: 5,000 unit Documented By: HORACIO Insulin Human Lispro (Insulin Lispro 100 Unit/Ml 3 Ml Vial) 0 unit SUBCUT QIDACHS [facility]; Protocol Last Admin: 09/09/21 12:13 Dose: 4 unit Documented By: MARELY [place] Carbonate ([place] Carbonate 300 Mg Tablet) 150 mg PO DAILY [facility] Last Admin: 09/09/21 08:14 Dose: 150 mg Documented By: MARELY Lorazepam (Lorazepam 0.5 Mg Tablet) 0.5 mg PO DAILY PRN PRN Reason: Anxiety Last Admin: 09/09/21 01:49 Dose: 0.5 mg Documented By: HORACIO Lurasidone HCl (Lurasidone Hcl 40 Mg Tablet) 120 mg PO DAILY [facility] Last Admin: 09/09/21 08:15 Dose: 120 mg Documented By: MARELY Pharmacy Consult (Consult Rx Perform Med Rec) 1 each MISCELLANE ONCE PRN PRN Reason: Consult order Sodium Chloride (0.9 % Sodium Chloride Flush 3 Ml Syringe) 3 ml IVFLUSH QSHIFT [facility] Last Admin: 09/09/21 07:15 Dose: Not Given Documented By: MARELY Non-Admin Reason: IV Running Labs CBC & Chem 7: 09/09/21 07:40 09/09/21 07:40 Labs: Laboratory Results - last 24 hr 09/08/21 09/08/21 09/08/21 06:51 06:51 15:45 MCV MCH MCHC RDW Plt Count MPV Absolute Nucleated RBC Nucleated RBC % (auto) Anion Gap Estim Creat Clear Calc Estimated GFR POC Glucose 217 H Random Glucose Calcium Vitamin B12 > 2000 H TSH 0.87 09/08/21 09/09/21 09/09/21 20:11 07:09 07:40 MCV 86.4 MCH 29.9 MCHC 34.6 RDW 14.9 Plt Count 247 D MPV 11.7 Absolute Nucleated RBC 0.000 Nucleated RBC % (auto) 0.0 Anion Gap Estim Creat Clear Calc Estimated GFR POC Glucose 206 H 244 H Random Glucose Calcium Vitamin B12 TSH 09/09/21 09/09/21 07:40 11:19 MCV MCH MCHC RDW Plt Count MPV Absolute Nucleated RBC Nucleated RBC % (auto) Anion Gap 16 Estim Creat Clear Calc 63.0 Estimated GFR 48 POC Glucose 238 H Random Glucose 235 H Calcium 9.0 D Vitamin B12 TSH Microbiology Microbiology Results: Microbiology 09/07/21 16:01 Blood Culture - Preliminary Blood - Venous No growth after 24 hours. 09/07/21 16:01 Blood Culture - Preliminary Blood - Venous No growth after 24 hours. Assessment and Plan (1) DANY (acute kidney injury): Status: Acute Plan This is a 56-year-old female with diabetes, bipolar disorder, hypertension, hyperlipidemia, peripheral neuropathy, asthma, chronic pain syndrome, history of seizure disorder, polysubstance abuse, multiple previous admissions for altered mental status brought into the emergency department for the same Toxic Metabolic encephalopathy. Improving Possibly in part secondary to DANY ?Underlying undiagnosed dementia vs polypharmacy brain CT negative tox screen negative, etoh level negative No source of infection identified patient afebrile, UA, CXR negative no focal neurological deficits appreciated EEG with no evidence of seizure activity seen by neurology - brain MRI obtained - no abnormalities noted Blood cultures negative today -psych consult pending Leukocytosis No evidence infection WBC trending down. Appears to be somewhat chronic DANY secondary to hypovolemia creatinine improving, almost back to baseline Renal ultrasound unremarkable hold nephrotoxins continue IVF Follow renal function Hyperkalemia Potassium above 6 on arrival Resolved with treatment in the ED h/o seizure disorder not currently on seizure meds seizure precautions -EEG without evidence of seizure activity DM with neuropathy SSI, POCs hold metformin peripheral neuropathy hold pregabalin bipolar disorder lithium level subtherapeutic continue lithium (level subtherapeutic), latuda initially seroquel, ativan, flexeril, lyrica held due to sedation - Ativan resumed overnight, will resume Lyrica at decreased dose psych eval to assist with med management DVT ppx - heparin Code status - presumed full code HCP Jaxson Walton or Liseth Cruz - attempted to call Jaxson, did not answer Attending- dr. ashford Patient requires ongoing inpatient hospitalization due to DANY, workup for encephalopathy. Quality Stroke Does the patient have a stroke diagnosis?: No VTE Prior VTE?: No VTE Risk Level:: Medical - moderate - high VTE Device Contraindication: N/A - Device Ordered VTE Drug Contraindication: N/A - Med Ordered
[2021-09-09 16:00] VITALS: BP 173/77; PULSE 82; RESP 18; TEMP 36.9; O2SAT 95
--- NOTE | 2021-09-09 16:14 | MHC.CM.PN ---
IMM 09/09/21, EMR REVIEWED PT ADMITTED W/AMS AND DANY, CM MET W/PT WHO IS A&O AND BURSTS OUT IN TEARS AND SAYS VIC KICKED HER OUT, PT ABLE TO ANSWER MOST QUESTIONS, REPORTS SHE DOES HER BS EVERY AM AND USES INHALERS, NO HOME SERVICES, PT REPORTS SHE DOES HAVE A THERAPIST [facility] WHO SHE SEE'S MONTHLY AND ORDERS HER PSYCH MEDS, PT VERIFIES PCP IS LIZ BANKS, [place] [facility] X2 CARISSA AND PCP IS MARGAUX BANKS, PT REQUESTING CM CONTACT HER ROOMMATE VIC. CM CONTACTED VIC AT 4:10PM AT [phone], VIC REPORTS HE CAN NO LONGER TAKE CARE OF PT AND THAT HE IS NOT HER ONLY HER ROOMMATE AND WAS TRYING TO HELP HER OUT, VIC ALSO REPORTS WHEN THE NEW LEASE WAS SIGNED SHE WAS NOT LUCID ENOUGH TO SIGN. NSG AND HOSPITALIST AWARE OF ANTIC PLACEMENT ISSUE.
[2021-09-09 16:26] LABS: Glucose, Whole Blood 225 mg/dL (60-115)
[2021-09-09 20:01] LABS: Glucose, Whole Blood 214 mg/dL (60-115)
[2021-09-09] MEDS: Pregabalin 75 MG CAPSULE PO (20:35)
[2021-09-09] MEDS: 0.9 % Sodium Chloride Flush 3 ML SYRINGE IVFLUSH (20:35)
[2021-09-10] VITALS (7 sets, daily range): BP systolic 109–157; BP diastolic 57–87; PULSE 71–81; RESP 18; TEMP 36.1–36.6; O2SAT 93–97
[2021-09-10] MEDS: LORazepam 0.5 MG TABLET PO ×2 (02:30→15:40)
[2021-09-10] MEDS: Heparin Sodium,Porcine 5,000 UNIT/ML VIAL 5000 UNIT SUBCUT ×2 (05:45→16:38)
[2021-09-10 07:29] LABS: Glucose, Whole Blood 193 mg/dL (60-115)
[2021-09-10 07:38] LABS: Anion Gap 21 (12-20); Blood Urea Nitrogen 22 mg/dL (9-16); Carbon Dioxide 15 mmol/L (22-29); Chloride 104 mmol/L (96-108); Creatinine Clr Calc Pharmacy 64.1; Estimated Glomerular Filt Rate 49; Glucose Random 187 mg/dL (60-115); Potassium 4.9 mmol/L (3.3-5.1); Sodium 135 mmol/L (135-145)
[2021-09-10] MEDS: Insulin Lispro 100 UNIT/ML 3 ML VIAL SUBCUT ×4 (07:52→19:56)
[2021-09-10] MEDS: Lurasidone HCl 40 MG TABLET 120 MG PO (07:53)
[2021-09-10] MEDS: Lithium Carbonate 300 MG TABLET 150 MG PO (07:53)
[2021-09-10] MEDS: Pregabalin 75 MG CAPSULE PO ×2 (07:53→19:55)
[2021-09-10] MEDS: 0.9 % Sodium Chloride Flush 3 ML SYRINGE IVFLUSH (07:54)
[2021-09-10] MEDS: Acetaminophen 325 MG TABLET 650 MG PO ×2 (08:01→21:54)
[2021-09-10 09:02] LABS: Hematocrit 39.8 % (37.0-47.0); Hemoglobin 13.5 g/dl (12.0-16.0); Mean Corpuscular HGB Conc 33.9 g/dl (31.0-35.0); Mean Corpuscular Hemoglobin 29.5 pg (27.0-33.0); Mean Corpuscular Volume 86.9 fL (80.0-98.0); Mean Platelet Volume 11.2 fL (9.4-12.3); Platelet Count 344 X10*3/uL (160-400); Red Blood Count 4.58 X10*6/uL (4.20-5.50); Red Cell Distribution Width 14.6 % (11.0-16.0); White Blood Count 17.1 X10*3/uL (4.8-10.8)
[2021-09-10 11:29] LABS: Glucose, Whole Blood 261 mg/dL (60-115)
--- NOTE | 2021-09-10 12:23 | P.PNIM_ITS ---
Subjective Subjective Date of Service: 09/10/21 Interval History: Seen and examined this morning Follow-up for encephalopathy, DANY Patient awake, alert, oriented this morning Upset as she found out her roommate is not allowing her to return home to her apartment Patient reports multiple episodes of diarrhea. She denies abdominal pain, nausea, vomiting, fever Review of Systems Review of Systems: Yes all other systems are reviewed and are negative Constitutional Constitutional: Denies chills and Denies fever(s) Cardiovascular Cardiovascular: Denies chest pain, Denies palpitations and Denies dyspnea Respiratory Respiratory: Denies cough and Denies dyspnea Gastrointestinal Gastrointestinal: Denies abdominal pain, Reports diarrhea, Denies nausea and Denies vomiting Endocrine Endocrine: Denies palpitations Physical Exam Vital Signs: Vital Signs: Last Vital Signs Temp 97.5 F 09/10/21 11:51 Pulse 79 09/10/21 11:51 Resp 18 09/10/21 11:51 BP 140/75 H 09/10/21 11:51 Pulse Ox 97 09/10/21 11:51 O2 Del Method 09/10/21 11:51 BMI result Body Mass Index 32.5 Const: General: cooperative, comfortable, alert and awake Nutritional Appearance: overweight Orientation/consciousness: patient oriented x3 HEENT: Other: Face flushed Dry mucous membranes Resp: Effort & Inspection: normal respiratory effort and able to speak in complete sentences Auscultation: diminished lung sounds Cardio: Rate: regular rate Heart sounds: S1 normal heart sound present and S2 normal heart sound present GI: Inspection: No distended and Yes obesity Palpation (GI): Soft to palpation and nontender Neuro: Other: No focal neurological deficits appreciated at this time General: patient oriented x3 Extrem: General: Yes no pedal edema Psych: Affect: Blunted affect present Objective Data Active Medications Acetaminophen (Acetaminophen 325 Mg Tablet) 650 mg PO Q6H PRN PRN Reason: Pain, Mild (Pain Scale 1-3) Last Admin: 09/10/21 08:01 Dose: 650 mg Documented By: COTEMA Dextrose (Dextrose 50 % 25 Gm/50 Ml Syringe) 25 gm IVPUSH Q15M PRN; Protocol PRN Reason: per Hypoglycemia Standing Ord. Docusate Sodium (Docusate Sodium 100 Mg Capsule) 100 mg PO DAILY PRN PRN Reason: Constipation Glucose (Glucose Gel 15 Gm Gel..Gram.) 15 gm PO Q15M PRN; Protocol PRN Reason: per Hypoglycemia Standing Ord. Heparin Sodium (Porcine) (Heparin Sodium,Porcine 5,000 Unit/Ml Vial) 5,000 unit SUBCUT Q12H [facility] Last Admin: 09/10/21 05:45 Dose: 5,000 unit Documented By: QUETA Insulin Human Lispro (Insulin Lispro 100 Unit/Ml 3 Ml Vial) 0 unit SUBCUT Q IDACHS [facility]; Protocol Last Admin: 09/10/21 11:50 Dose: 6 unit Documented By: MARELY [place] Carbonate ([place] Carbonate 300 Mg Tablet) 150 mg PO DAILY [facility] Last Admin: 09/10/21 07:53 Dose: 150 mg Documented By: MARELY Lorazepam (Lorazepam 0.5 Mg Tablet) 0.5 mg PO DAILY PRN PRN Reason: Anxiety Last Admin: 09/10/21 02:30 Dose: 0.5 mg Documented By: QUETA Lurasidone HCl (Lurasidone Hcl 40 Mg Tablet) 120 mg PO DAILY [facility] Last Admin: 09/10/21 07:53 Dose: 120 mg Documented By: MARELY Pharmacy Consult (Consult Rx Perform Med Rec) 1 each MISCELLANE ONCE PRN PRN Reason: Consult order Pregabalin (Pregabalin 75 Mg Capsule) 75 mg PO BID [facility] Last Admin: 09/10/21 07:53 Dose: 75 mg Documented By: MARELY Sodium Chloride (0.9 % Sodium Chloride Flush 3 Ml Syringe) 3 ml IVFLUSH QSHIFT [facility] Last Admin: 09/10/21 07:54 Dose: 3 ml Documented By: MARELY Labs CBC & Chem 7: 09/10/21 07:45 09/10/21 06:11 Labs: Laboratory Results - last 24 hr 09/09/21 09/09/21 09/10/21 16:08 19:43 06:11 MCV MCH MCHC RDW Plt Count MPV Absolute Nucleated RBC Nucleated RBC % (auto) Anion Gap 21 H Estim Creat Clear Calc 64.1 Estimated GFR 49 POC Glucose 225 H 214 H Random Glucose 187 H Calcium 9.0 09/10/21 09/10/21 09/10/21 07:14 07:45 11:13 MCV 86.9 MCH 29.5 MCHC 33.9 RDW 14.6 Plt Count 344 D MPV 11.2 Absolute Nucleated RBC 0.000 Nucleated RBC % (auto) 0.0 Anion Gap Estim Creat Clear Calc Estimated GFR POC Glucose 193 H 261 H Random Glucose Calcium Microbiology Microbiology Results: Microbiology 09/07/21 16:01 Blood Culture - Preliminary Blood - Venous No growth after 48 hours. 09/07/21 16:01 Blood Culture - Preliminary Blood - Venous No growth after 48 hours. Assessment and Plan (1) Altered mental status: Status: Acute (2) DANY (acute kidney injury): Status: Acute (3) Acute hyperkalemia: Status: Acute Plan This is a 56-year-old female with diabetes, bipolar disorder, hypertension, hyperlipidemia, peripheral neuropathy, asthma, chronic pain syndrome, history of seizure disorder, polysubstance abuse, multiple previous admissions for altered mental status brought into the emergency department for the same Toxic Metabolic encephalopathy. Improving Possibly in part secondary to DANY ?Underlying undiagnosed dementia vs polypharmacy - At caleb time seems most likely related to polypharmacy. P.r.n. Flexeril has been on hold since admission as well as Seroquel and prazosin. Lyrica was initially placed on hold and has been restarted at 50% dose. brain CT negative tox screen negative, etoh level negative No source of infection identified patient afebrile, UA, CXR negative no focal neurological deficits appreciated EEG with no evidence of seizure activity B12, folate not low seen by neurology - brain MRI obtained - no abnormalities noted Blood cultures negative to date -psych consult pending Metabolic acidosis Bicarb down to 15, likely secondary to GI losses Will rule out C diff and and start p.r.n. Imodium if negative follow BMP Diarrhea No abdominal pain Will rule out C diff Leukocytosis No evidence infection Appears chronic, seems to go up and down Will check C diff as above DANY secondary to hypovolemia creatinine improving, almost back to baseline Renal ultrasound unremarkable hold nephrotoxins continue IVF Follow renal function Hyperkalemia Potassium above 6 on arrival Resolved with treatment in the ED h/o seizure disorder not currently on seizure meds seizure precautions -EEG without evidence of seizure activity DM with neuropathy SSI, POCs hold metformin peripheral neuropathy resume at lower dose bipolar disorder lithium level subtherapeutic continue lithium (level subtherapeutic), latuda initially seroquel, ativan, flexeril, lyrica held due to sedation - Ativan resumed overnight, will resume Lyrica at decreased dose psych eval pending to assist with med management also ?component of cognitive impairment DVT ppx - heparin Code status -full code HCP Jaxson Walton or Liseth Cruz - attempted to call Jaxson, did not answer Attending- dr. Goldman Patient states her roommate Jaxson told her she is no longer welcome to return to their apartment. Case Management aware Patient requires ongoing inpatient hospitalization due to DANY, workup for encephalopathy. Quality Stroke Does the patient have a stroke diagnosis?: No VTE Prior VTE?: No VTE Risk Level:: Medical - moderate - high VTE Device Contraindication: N/A - Device Ordered VTE Drug Contraindication: N/A - Med Ordered
--- NOTE | 2021-09-10 13:34 | PC.NURSE ---
Pt IV access infiltrated and IV access was not able to be re established. Multiple attempts were made to get IV access and was unsuccessful. Chrissie COREA made aware and said it was okay to hold on IV access for now.
--- NOTE | 2021-09-10 14:30 | P.CNPS_ITS ---
History of Present Illness Date of Service: 09/10/2021 Chief Complaint: AMS, DANY Reason for Consult: AMS Med recs Discussed with referring provider: Yes Sources of Information: patient interviewed and chart reviewed HPI Narrative: Consult requested for altered mental state. Noted has had a number of recent admissions in similar context. Since admission on 09/07/2021, mental state has improved primarily with medications being held. Has been receiving lithium low- dose 150 mg a noted lithium levels. Also received Latuda 120 mg. Have been holding Seroquel and Ativan. Noted prior consult on 09/04/2021. Met with patient. She is alert and oriented. Aware of date. Aware how long in the hospital and circumstances. Aware of investigations including blood work and CT scan. Feels that her confusion recently his been due to being overmedicated. Reports being on lithium for a number of months along with Seroquel and Latuda. Latuda just started most recently for depression and bip olar disorder. Feels the Latuda has been helpful. [place] dose was 150 mg, Seroquel 200 mg. Latuda 120 mg. Patient aware of all dosing. We discussed discontinuing lithium as such a low dose, not therapeutic and no clear benefit and also prior concerns regarding kidney function. With increase Latuda to 160 mg to compensate for lithium being removed. Regarding Seroquel and Ativan, reports sleep has been very problematic. Agreed to restart Seroquel at 50 mg at bedtime understanding prior dosing was 200 mg. Can review dosing every 2-3 days, Regarding efficacy and side effects such as confusion As side of that is appropriately upset as she cannot return home as she reports report or 14 years is no longer willing to work with her- found this out while she was in the hospital. Feels supported by social work team in the hospital. No psychosis. No SI. Past Psychiatric History: Bipolar disorder. Prior inpatient episodes. Previous consults most recent 09/04/2021. No history of suicide attempts. Personal & Social History: Recently homeless- informed while in hospital Review of Systems Review of Systems clear from a mental status perspective [facility] Medical History Asthma Bipolar disorder Chronic pain Diabetes Hypertension IBS (irritable bowel syndrome) Peripheral neuropathy Polysubstance abuse Seizure Surgical History History of appendectomy Diagnostics Vital Signs (24Hr): Vital Signs - 24 hr 09/09/21 16:00 09/10/21 00:00 09/10/21 04:00 Temperature 98.4 F 97.4 F 97.7 F Pulse Rate 82 71 73 Respiratory Rate 18 18 18 Blood Pressure 173/77 H 155/73 H 154/86 H Pulse Oximetry 95 96 96 Oxygen Delivery Method Room Air Room Air Room Air 09/10/21 07:54 09/10/21 11:51 Temperature 97.4 F 97.5 F Pulse Rate 75 79 Respiratory Rate 18 18 Blood Pressure 145/68 H 140/75 H Pulse Oximetry 96 97 Oxygen Delivery Method Room Air Room Air BMI result Body Mass Index 32.5 Labs Results: 09/10/21 07:45 09/10/21 06:11 Labs: Laboratory Results - last 48 hr 09/08/21 09/08/21 09/08/21 06:51 15:45 20:11 WBC RBC Hgb Hct MCV MCH MCHC RDW Plt Count MPV Absolute Nucleated RBC Nucleated RBC % (auto) Sodium Potassium Chloride Carbon Dioxide Anion Gap BUN Creatinine Estim Creat Clear Calc Estimated GFR POC Glucose 217 H 206 H Random Glucose Calcium Vitamin B12 > 2000 H 09/09/21 09/09/21 09/09/21 07:09 07:40 07:40 WBC 12.5 H RBC 4.25 Hgb 12.7 Hct 36.7 L MCV 86.4 MCH 29.9 MCHC 34.6 RDW 14.9 Plt Count 247 D MPV 11.7 Absolute Nucleated RBC 0.000 Nucleated RBC % (auto) 0.0 Sodium 136 Potassium 4.5 Chloride 102 Carbon Dioxide 23 Anion Gap 16 BUN 24 H Creatinine 1.16 Estim Creat Clear Calc 63.0 Estimated GFR 48 POC Glucose 244 H Random Glucose 235 H Calcium 9.0 D Vitamin B12 09/09/21 09/09/21 09/09/21 11:19 16:08 19:43 WBC RBC Hgb Hct MCV MCH MCHC RDW Plt Count MPV Absolute Nucleated RBC Nucleated RBC % (auto) Sodium Potassium Chloride Carbon Dioxide Anion Gap BUN Creatinine Estim Creat Clear Calc Estimated GFR POC Glucose 238 H 225 H 214 H Random Glucose Calcium Vitamin B12 09/10/21 09/10/21 09/10/21 06:11 07:14 07:45 WBC 17.1 H RBC 4.58 Hgb 13.5 Hct 39.8 MCV 86.9 MCH 29.5 MCHC 33.9 RDW 14.6 Plt Count 344 D MPV 11.2 Absolute Nucleated RBC 0.000 Nucleated RBC % (auto) 0.0 Sodium 135 Potassium 4.9 Chloride 104 Carbon Dioxide 15 L Anion Gap 21 H BUN 22 H Creatinine 1.14 Estim Creat Clear Calc 64.1 Estimated GFR 49 POC Glucose 193 H Random Glucose 187 H Calcium 9.0 Vitamin B12 09/10/21 11:13 WBC RBC Hgb Hct MCV MCH MCHC RDW Plt Count MPV Absolute Nucleated RBC Nucleated RBC % (auto) Sodium Potassium Chloride Carbon Dioxide Anion Gap BUN Creatinine Estim Creat Clear Calc Estimated GFR POC Glucose 261 H Random Glucose Calcium Vitamin B12 Imaging Radiology Impressions: ITS Impressions Chest X-Ray 09/07/21 13:16 IMPRESSION: No acute cardiopulmonary process. Renal Ultrasound 09/07/21 15:16 IMPRESSION: 1. Probable left upper pole renal cyst demonstrating benign features, not well-seen on previous CT findings. No right renal abnormality. 3. Hepatic steatosis. Head CT 09/08/21 09:40 IMPRESSION: Unremarkable exam. KUB X-Ray 09/08/21 16:30 IMPRESSION: No unintended metallic foreign body identified. Brain MRI 09/08/21 18:00 IMPRESSION: - No acute intracranial findings. No acute infarcts. - There is mild chronic microangiopathy. Previously seen cortical/subcortical signal changes on the 11/13/2018 and brain MRI have since resolved. Mental Status Exam Mental Status Exam Narrative: alert. Oriented. Engaged. Organized. Appropriately upset regarding recent circumstances. No pervasive depression. No beatriz. No psychosis. No SI or HI. Insight and judgment fair Medications Medications Current Medications Acetaminophen (Acetaminophen 325 Mg Tablet) 650 mg PO Q6H PRN PRN Reason: Pain, Mild (Pain Scale 1-3) Last Admin: 09/10/21 08:01 Dose: 650 mg Dextrose (Dextrose 50 % 25 Gm/50 Ml Syringe) 25 gm IVPUSH Q15M PRN; Protocol PRN Reason: per Hypoglycemia Standing Ord. Docusate Sodium (Docusate Sodium 100 Mg Capsule) 100 mg PO DAILY PRN PRN Reason: Constipation Glucose (Glucose Gel 15 Gm Gel..Gram.) 15 gm PO Q15M PRN; Protocol PRN Reason: per Hypoglycemia Standing Ord. Heparin Sodium (Porcine) (Heparin Sodium,Porcine 5,000 Unit/Ml Vial) 5,000 unit SUBCUT Q12H [facility] Last Admin: 09/10/21 05:45 Dose: 5,000 unit Insulin Human Lispro (Insulin Lispro 100 Unit/Ml 3 Ml Vial) 0 unit SUBCUT QIDACHS [facility]; Protocol Last Admin: 09/10/21 11:50 Dose: 6 unit [place] Carbonate ([place] Carbonate 300 Mg Tablet) 150 mg PO DAILY [facility] Last Admin: 09/10/21 07:53 Dose: 150 mg Lorazepam (Lorazepam 0.5 Mg Tablet) 0.5 mg PO DAILY PRN PRN Reason: Anxiety Last Admin: 09/10/21 02:30 Dose: 0.5 mg Lurasidone HCl (Lurasidone Hcl 40 Mg Tablet) 120 mg PO DAILY [facility] Last Admin: 09/10/21 07:53 Dose: 120 mg Pharmacy Consult (Consult Rx Perform Med Rec) 1 each MISCELLANE ONCE PRN PRN Reason: Consult order Pregabalin (Pregabalin 75 Mg Capsule) 75 mg PO BID [facility] Last Admin: 09/10/21 07:53 Dose: 75 mg Sodium Chloride (0.9 % Sodium Chloride Flush 3 Ml Syringe) 3 ml IVFLUSH QSHIFT [facility] Last Admin: 09/10/21 07:54 Dose: 3 ml Allergies Allergies Allergy/AdvReac Type Severity Reaction Status Date / Time morphine [MORPHINE] Allergy Unknown RASH, vomit Verified 08/21/21 18:14 prednisone Allergy Unknown hives Verified 08/21/21 18:14 Sulfa (Sulfonamide Allergy Unknown UNKNOWN, Verified 08/21/21 18:14 Antibiotics) hives [SULFA (SULFONAMIDE ANTIBIOTICS)] Assessment & Plan Assessment & Plan (1) Bipolar disorder: Status: Acute Code(s): F31.9 - Bipolar disorder, unspecified Assessment and Plan: stable from a mood perspective. med regimen might be contributing to confusion at times, when she is experiencing some medical decompensation too. Reports being on lithium for a number of months along with Seroquel and Latuda. Latuda just started most recently for depression and bipolar disorder. Feels the Latuda has been helpful. [place] dose was 150 mg, Seroquel 200 mg. Latuda 120 mg. Patient aware of all dosing. Rec: 1) DC lithium (such a low dose, not therapeutic and no clear benefit and also prior concerns regarding kidney function). 2) increase Latuda to 160 mg to compensate for lithium being removed. 3) Regarding Seroquel and Ativan, reports sleep has been very problematic. Agreed to restart Seroquel at 50 mg at bedtime understanding prior dosing was 200 mg. Can review dosing every 2-3 days, Regarding efficacy and side effects such as confusion 4) Has capacity ref medical and treatment decisions I spent minutes with the patient and/or on the patient floor today, greater than?50% of which was spent counseling/coordinating care.
[2021-09-10 16:21] LABS: Glucose, Whole Blood 214 mg/dL (60-115)
[2021-09-10 16:32] LABS: Anion Gap 15 (12-20); Blood Urea Nitrogen 23 mg/dL (9-16); Calcium 9.5 mg/dL (8.4-10.2); Carbon Dioxide 23 mmol/L (22-29); Chloride 102 mmol/L (96-108); Creatinine Clr Calc Pharmacy 61.5; Estimated Glomerular Filt Rate 47; Glucose Random 219 mg/dL (60-115); Potassium 4.3 mmol/L (3.3-5.1); Sodium 136 mmol/L (135-145)
[2021-09-10] MEDS: Sodium Bicarbonate 650 MG TABLET PO ×2 (16:38→19:56)
[2021-09-10 19:41] LABS: Glucose, Whole Blood 260 mg/dL (60-115)
[2021-09-10] MEDS: QUEtiapine Fumarate 50 MG TABLET PO (19:55)
[2021-09-11 04:00] VITALS: BP 128/59; PULSE 81; RESP 18; TEMP 36.3; O2SAT 97
[2021-09-11] MEDS: Heparin Sodium,Porcine 5,000 UNIT/ML VIAL 5000 UNIT SUBCUT (05:26)
[2021-09-11 07:26] LABS: Glucose, Whole Blood 203 mg/dL (60-115)
[2021-09-11] MEDS: Insulin Lispro 100 UNIT/ML 3 ML VIAL SUBCUT (07:56)
[2021-09-11] MEDS: Acetaminophen 325 MG TABLET 650 MG PO (07:56)
[2021-09-11] MEDS: LORazepam 0.5 MG TABLET PO (07:57)
[2021-09-11] MEDS: Lurasidone HCl 80 MG TABLET 160 MG PO (07:57)
[2021-09-11] MEDS: Sodium Bicarbonate 650 MG TABLET PO (07:57)
[2021-09-11] MEDS: Pregabalin 75 MG CAPSULE PO (07:57)
[2021-09-11 08:00] VITALS: BP 136/66; PULSE 85; RESP 18; TEMP 36.1; O2SAT 92
--- NOTE | 2021-09-11 10:50 | MHC.CM.PN ---
PT WILL D/C HOME TODAY W/NEW COMFORT PLUS CARE GIVERS FOR RETIREMENT, CONTACT INFO FOR [employer] FOR ASSISTANCE W/EMERGENCY HOUSING, CM CONTACTED ROOMMATE VIC AT 10:41AM WHO WAS NOT HAPPY AND YELLING AT OVER PHONE AND REPORTED HE WILL HAVE HER EVICTED, CM ATTEMPTED TO EXPLAIN THAT SHE HAS BEEN PROVIDED W/CONTACT INFO FOR [employer] AND PT WILL BE CALLING WHEN THEY OPEN IN AM. HOSPITALIST AND NSG AWARE.
--- NOTE | 2021-09-11 11:06 | P.DS_ITS ---
DS: Providers Provider Date of Service: 09/11/21 Date of admission: 09/07/21 16:57 Primary care physician: Bri Milligan CNP Consults: 09/07/21 16:56 Consult to Neurology Routine Consulting Provider: [facility] Reason for consultation: AMS, recurrent admissions Has provider been notified: No 09/07/21 17:03 Consult to Psychiatry Routine Consulting Provider: Psych Covering Reason for consultation: Recurrent admits; h/o bipolar, not compliant with meds Has provider been notified: No Attending physician on discharge: Justice Weber Discharging clinician: Mary Fried DS: Diagnosis Discharge Diagnosis (1) Bipolar disorder: Status: Acute DS: Summary Hospital Course Hospital Course: HP as per admitting provider This is a 56-year-old female with history of bipolar disorder, substance abuse sent to the emergency department today with altered mental status.? Reportedly not taking her medication.? She was admitted to the hospital in July with a similar presentation.? She was in the emergency department on September 02 with a similar presentation and that that time she is evaluated by care team and psych her mental status improved and she was discharged home.? Today I am unable to obtain any history from the patient.? She is moaning but not answering questions.? Lab work reviewed [place] [address], acute kidney injury with a creatinine of 2.14 initially with associated hyperkalemia of 6.2 she received Lokelma, calcium gluconate, insulin, dextrose, sodium bicarb as well as IV fluid.? Her chemistry was repeated and her hyperkalemia resolved, her creatinine improved to 1.83.? According to previous emergency room documentation the patient has a family history of early-onset dementia . Toxic Metabolic encephalopathy. Resolved polypharmacy - brain CT negative tox screen negative, etoh level negative No source of infection identified patient afebrile, UA, CXR negative no focal neurological deficits appreciated EEG with no evidence of seizure activity B12, folate not low seen by neurology - brain MRI obtained - no abnormalities noted Blood cultures negative to date Seen and evaluated by psych with rec to stop lithium, decrease lyrica and seroquel Metabolic acidosis Bicarb down to 15, likely secondary to GI losses Leukocytosis No evidence infection Appears chronic, seems to go up and down DANY. Resolved secondary to hypovolemia Renal ultrasound unremarkable treated with IV fluids Hyperkalemia Potassium above 6 on arrival Resolved with treatment in the ED h/o seizure disorder not currently on seizure meds EEG without evidence of seizure activity DM with neuropathy continue home medications peripheral neuropathy resume at lower dose bipolar disorder Seen and evaluated by psych with rec to stop lithium, decrease lyrica and seroquel Time Spent with Patient Time attestation: Total time spent providing and/or coordinating discharge services: Discharge coordination time: Greater than 30 minutes Quality: Safe Use of Opioids Does Pt have an Active Cancer Diagnosis on the Problem List?: No Quality: Stroke Does the patient have a stroke diagnosis?: No Physical Exam Vital Signs: Vital Signs: Last Vital Signs Temp 97.0 F 09/11/21 08:00 Pulse 85 09/11/21 08:00 Resp 18 09/11/21 08:00 BP 136/66 09/11/21 08:00 Pulse Ox 92 09/11/21 08:00 O2 Del Method 09/11/21 08:00 BMI result Body Mass Index 32.5 Appearing in no acute distress head is normocephalic atraumatic eyes pupils are PERRLA sclera is anicteric mouth throat mucous membranes are intact and moist neck is supple no lymphadenopathy, no JVD noted lung sounds are clear to auscultation heart regular rate rhythm, clear S1, S2 positive bowel sounds, abdomen is soft, nontender neuro patient is alert x3, no focal deficits DS: Data Data Completed and Pending Completed studies during hospitalization [Text1]: Procedures Detoxification Services for Substance Abuse Treatment (07/15/21) Introduction of Vasopressor into Peripheral Vein, Percutaneous Approach (07/15/21) Labs on day of discharge: Laboratory Results - last 24 hr 09/10/21 09/10/21 09/10/21 11:13 15:53 15:58 Sodium 136 Potassium 4.3 Chloride 102 Carbon Dioxide 23 Anion Gap 15 BUN 23 H Creatinine 1.19 Estim Creat Clear Calc 61.5 Estimated GFR 47 POC Glucose 261 H 214 H Random Glucose 219 H Calcium 9.5 09/10/21 09/11/21 19:33 07:22 Sodium Potassium Chloride Carbon Dioxide Anion Gap BUN Creatinine Estim Creat Clear Calc Estimated GFR POC Glucose 260 H 203 H Random Glucose Calcium Preliminary micro results at discharge 09/07/21 16:01 Blood Culture - Preliminary Blood - Venous No growth after 48 hours. 09/07/21 16:01 Blood Culture - Preliminary Blood - Venous No growth after 48 hours. Discharge Plan Discharge Anticipated Discharge Date/Time: 09/11/21 10:57 Patient Disposition: Home Health Service Discharge Diagnosis: Toxic metabolic encephalopathy secondary to polypharmacy Metabolic acidosis DANY Leukocytosis Electrolyte abnormalities Referrals: [facility] [Other] - 1 Week (PLEASE CALL [facility] SATURDAY MORNING AND THEY WILL ASSIST YOU WITH EMERGENCY HOUSING AND FIRST/LAST/SECURITY DEPOSIT IF NEEDED. ) [facility] [Outside] - 1 Day ([facility] FOR MED MANAGEMENT) Bri Milligan CNP [Primary Care Provider] - 1 Week Discharge Medications: New pregabalin [Lyrica] 75 mg Capsule 75 mg PO BID Qty: 60 0RF quetiapine 50 mg Tablet 50 mg PO BEDTIME Qty: 30 0RF Latuda 80 mg Tablet 160 mg PO DAILY Qty: 60 0RF Continued prazosin 1 mg capsule 1 cap PO BEDTIME cyclobenzaprine 5 mg tablet 5 mg PO Q8H PRN (Reason: pain (scale score 7-10)) 5 Days Qty: 14 0RF naproxen 500 mg tablet 500 mg PO BID PRN (Reason: pain) 10 Days Qty: 20 0RF acetaminophen [Tylenol Extra Strength] 500 mg tablet 500 mg PO Q6H PRN (Reason: fever or pain) Qty: 14 0RF quetiapine [Seroquel] 200 mg Tablet 200 mg PO BEDTIME lorazepam 0.5 mg Tablet 0.5 mg PO DAILY PRN (Reason: Anxiety) metformin 1,000 mg tablet 1 tab PO BID multivitamin Tablet 1 tab PO DAILY Discontinued Latuda 120 mg tablet 1 tab PO DAILY pregabalin 150 mg Capsule 150 mg PO BID lithium carbonate 150 mg Capsule 150 mg PO DAILY Discharge Orders: Discharge Order (Routine); Ordered 09/11/21 Ordered By: Mary Fried Diet: Advance to usual diet Activity on Discharge: As tolerated Stand Alone Forms: Patient Portal Discharge page Care Plan Goals: No further episodes of encephalopathy secondary to medication poly pharmacy Health Concerns: Toxic metabolic encephalopathy secondary to polypharmacy Metabolic acidosis DANY Leukocytosis Electrolyte abnormalities Plan of Treatment: Follow-up with primary care provider as needed Take all medications as/only as prescribed Assessment: see discharge summary
[2021-09-11 11:42] LABS: Glucose, Whole Blood 309 mg/dL (60-115)
== END 2021-09-11 12:33 | disposition home health service (06) | DRG 682 ==
LOC: HO.ED 16:30 → HO.EDOVER 17:50 → HO.S3 09-08 08:45
PROVIDERS: Emergency Medicine; Internal Medicine; Admitting Provider Physician Assistant Medical; Emergency Provider Emergency Medicine; PCP Nurse Practitioner Family; Visit Provider Nurse Practitioner Acute Care
DX: N17.9 Acute kidney failure, unspecified (principal); G92.8 Other toxic encephalopathy; E87.2 Acidosis; F31.9 Bipolar disorder, unspecified; E11.42 Type 2 diabetes mellitus with diabetic polyneuropathy; E87.5 Hyperkalemia; E86.0 Dehydration; F19.10 Other psychoactive substance abuse, uncomplicated; D72.829 Elevated white blood cell count, unspecified; E86.1 Hypovolemia; R78.89 Finding of other specified substances, not normally found in blood; G40.909 Epilepsy, unspecified, not intractable, without status epilepticus; Z20.822 Contact with and (suspected) exposure to COVID-19; Z88.2 Allergy status to sulfonamides; Z88.5 Allergy status to narcotic agent; Z88.8 Allergy status to other drugs, medicaments and biological substances; Z91.14 Patient's other noncompliance with medication regimen; Z79.84 Long term (current) use of oral hypoglycemic drugs; Z79.899 Other long term (current) drug therapy
CPT/HCPCS: 36415; 70450; 70551; 71045; 74018; 76775; 80048; 80076; 80143; 80178; 80179; 80307; 81003; 82077; 82550; 82607; 82803; 82947; 83605; 83735; 84443; 84484; 85025; 85027; 87040; 87635; 93005; 95816; 96361; 96365; 96366; 96375; 97161; 97163; 99285; C1758; J0610; J2060

== ENCOUNTER 2021-09-23 13:14 | Emergency (ER) | payer MEDICARE, MEDICAID, SELFPAY | END 2021-09-23 13:51 | disposition left against medical advice (07) | PROVIDERS: Emergency Provider Emergency Medicine | DX: K92.1 Melena (principal) ==

== ENCOUNTER 2021-10-04 18:31 | Emergency (ER) | payer MEDICARE, MEDICAID, SELFPAY ==
--- NOTE | ~2021-10-04 | XR_ITS ---
EXAMINATION: XR CHEST CLINICAL INFORMATION: Altered mental status COMPARISON: 09/07/2021 TECHNIQUE: Frontal view of the chest was obtained. FINDINGS: No significant abnormality is noted involving the heart, lungs, mediastinum, bony thorax or soft tissues. XR/XR chest 1V IMPRESSION: Unremarkable examination.
[2021-10-04 18:34] VITALS: BP 187/78; PULSE 111; RESP 18; TEMP 37.2; O2SAT 93; BMI 32.3
--- NOTE | 2021-10-04 18:34 | ECG_ITS ---
Test Reason : OD Blood Pressure : / mmHG Vent. Rate : 111 BPM Atrial Rate : 111 BPM P-R Int : 156 ms QRS Dur : 074 ms QT Int : 334 ms P-R-T Axes : 037 001 072 degrees QTc Int : 454 ms Sinus tachycardia Septal infarct , age undetermined Abnormal ECG When compared with ECG of 07-SEP-2021 13:25, No significant change was found Referred By: Cj Madera Electronically Signed By:LOUISE URRUTIA
[2021-10-04 18:44] LABS: Glucose, Whole Blood 244 mg/dL (60-115)
[2021-10-04] MEDS: Naloxone HCl Nasal 4 MG SPRAY NOSTRILALT ×2 (18:45)
[2021-10-04] MEDS: 0.9 % Sodium Chloride 1,000 ML 999 ML IV (18:45)
--- NOTE | 2021-10-04 18:59 | MHC.RECOVSUP ---
? Reason for consult Recovery Support o Current location: ED04 o Identified substance use concern: OPIATE - Overdose - Support ? Intervention: o Community resources provided o Harm reduction discussion ? Plan: o Referral to [facility] o Bed search in progress to o Follow up tomorrow o Patient awaiting crisis evaluation o Patient to follow up with HF after discharge ? Additional information: Met with patient and patient stated that she did not need any help.. I just took to many Percocet..
[2021-10-04 19:15] LABS: MANUAL DIFF FLAG NO
[2021-10-04 19:17] LABS: Basophils Percent Auto 0.3 % (0-2); Eosinophils Absolute Auto 0.1 X10*3/uL (0.0-0.4); Eosinophils Percent Auto 1.2 % (0-4); Hematocrit 33.4 % (37.0-47.0); Hemoglobin 11.1 g/dl (12.0-16.0); Imm Gran Abs Auto 0.08 X10*3/uL (0.00-0.03); Imm Gran Pct Auto 0.7 % (0.0-0.4); Lymphocytes Absolute Auto 2.6 X10*3/uL (1.2-4.9); Lymphocytes Percent Auto 23.2 % (20-40); Mean Corpuscular HGB Conc 33.2 g/dl (31.0-35.0); Mean Corpuscular Hemoglobin 29.2 pg (27.0-33.0); Mean Corpuscular Volume 87.9 fL (80.0-98.0); Mean Platelet Volume 10.7 fL (9.4-12.3); Monocytes Absolute Auto 0.4 X10*3/uL (0.1-1.2); Monocytes Percent Auto 3.4 % (2-11); Neutrophils Absolute Auto 8.1 x10*3/uL (2.0-8.3); Neutrophils Percent Auto 71.2 % (45-73); Platelet Count 233 X10*3/uL (160-400); White Blood Count 11.3 X10*3/uL (4.8-10.8)
[2021-10-04] MEDS: Albuterol/Iprat 2.5/0.5MG 3 ML AMPUL.NEB INHALE (19:31)
[2021-10-04 19:33] VITALS: PULSE 91; RESP 22; O2SAT 98
[2021-10-04 19:36] LABS: COVID-19 Test Negative (Negative)
[2021-10-04 19:37] LABS: Troponin-I High Sensitivity < 3.5 ng/L (<3.5-17.0)
[2021-10-04 19:39] LABS: Acetaminophen LAB < 1 mcg/mL (<30); Alanine Aminotransferase 17 U/L (0-31); Albumin Level 3.8 g/dL (3.5-5.0); Alkaline Phosphatase 72 U/L (39-117); Anion Gap 19 (12-20); Aspartate Amino Transferase 16 U/L (5-31); Bilirubin Total 0.2 mg/dL (0.0-1.0); Blood Urea Nitrogen 14 mg/dL (9-16); Calcium 8.7 mg/dL (8.4-10.2); Carbon Dioxide 18 mmol/L (22-29); Chloride 108 mmol/L (96-108); Creatinine Clr Calc Pharmacy 58.1; Estimated Glomerular Filt Rate 46; Glucose Random 254 mg/dL (60-115); Magnesium 1.2 mg/dL (1.6-2.6); Potassium 4.4 mmol/L (3.3-5.1); Salicylate < 5.0 mg/dL (15-30); Sodium 141 mmol/L (135-145); Total Protein 6.5 g/dL (6.5-8.0)
[2021-10-04] MEDS: Magnesium Sulfate/H2O 2 GM/50 ML PIGGYBACK IV (19:54)
[2021-10-04 20:29] LABS: Amphetamine Screen Urine Not Detected (Not Detect); Barbiturates, Urine Not Detected (Not Detect); Benzodiazepines Screen Urine Not Detected (Not Detect); Cannabinoid Screen Urine Not Detected (Not Detect); Cocaine Screen Urine Not Detected (Not Detect); Fentanyl, urine POSITIVE (Not Detect); Opiate Screen Urine POSITIVE (Not Detect); Phencyclidine Screen Urine Not Detected (Not Detect)
--- NOTE | 2021-10-04 20:39 | ED_ITS ---
HPI - Overdose General Chief Complaint: Overdose Stated Complaint: overdose Time Seen by Provider: 10/04/21 18:34 Source: patient Mode of arrival: ambulatory Limitations: no limitations History of Present Illness HPI Narrative: Patient dropped by her friend to the ED entrance for unresponsiveness while patient in the car THIERRY ran to see the patient found her cyanosed not breathing started on ambubag and was given total of 12 mg of Narcan intranasally after that patient responded patient said that patient took some Percocet from the street as a recreation denies any suicidal ideation Related Data Home Medications Medication Instructions Recorded Confirmed lorazepam 0.5 mg tablet 0.5 mg PO DAILY PRN Anxiety 07/15/21 09/07/21 quetiapine 200 mg tablet (Seroquel) 200 mg PO BEDTIME 07/15/21 09/07/21 prazosin 1 mg capsule 1 cap PO BEDTIME 08/02/21 09/07/21 metformin 1,000 mg tablet 1 tab PO BID 09/03/21 09/07/21 multivitamin 1 tab PO DAILY 09/03/21 09/07/21 Previous Rx's Medication Instructions Recorded acetaminophen 500 mg tablet 500 mg PO Q6H PRN fever or pain 08/21/21 (Tylenol Extra Strength) #14 tabs cyclobenzaprine 5 mg tablet 5 mg PO Q8H PRN pain (scale score 08/21/21 7-10) 5 days #14 tabs naproxen 500 mg tablet 500 mg PO BID PRN pain 10 days #20 08/21/21 tabs lurasidone 80 mg tablet (Latuda) 160 mg PO DAILY #60 tabs 09/11/21 pregabalin 75 mg capsule (Lyrica) 75 mg PO BID #60 caps 09/11/21 quetiapine 50 mg tablet 50 mg PO BEDTIME #30 tabs 09/11/21 Allergies Allergy/AdvReac Type Severity Reaction Status Date / Time morphine [MORPHINE] Allergy Unknown RASH, vomit Verified 08/21/21 18:14 prednisone Allergy Unknown hives Verified 08/21/21 18:14 Sulfa (Sulfonamide Allergy Unknown UNKNOWN, Verified 08/21/21 18:14 Antibiotics) hives [SULFA (SULFONAMIDE ANTIBIOTICS)] Review of Systems Review of Systems: Yes all other systems are reviewed and are negative PMFSH Past Medical History Medical History Asthma Bipolar disorder Chronic pain Diabetes Hypertension IBS (irritable bowel syndrome) Peripheral neuropathy Polysubstance abuse Seizure Surgical History History of appendectomy Social History Social History Household Members: Other Household Members Other:: roommate Housing: Apartment Do you presently have visiting nurse or other home services: No Unable to assess alcohol history related to: Unable to respond Alcohol intake: former Patient Tobacco Use Status: Current everyday Tobacco user Smoked in Last 30 Days: Yes Use of substances other than those prescribed or required for medical reasons: Yes Substance Use Type: Painkillers Substance Use Frequency: Chronic Longstanding Advance Directives: Yes Advance Directives on File: Yes Advance Directives Date on File: 09/03/21 service: No Current occupational status: disabled Physical Exam Vital Signs: Vital Signs: Last Vital Signs Temp 98.9 F 10/04/21 18:34 Pulse 91 10/04/21 19:33 Resp 22 H 10/04/21 19:33 BP 187/78 H 10/04/21 18:34 Pulse Ox 93 10/04/21 18:34 O2 Del Method 10/04/21 18:34 Oxygen Flow Rate 2 10/04/21 18:34 BMI result Body Mass Index 32.3 Appearance: Alert. Oriented X3. Semi responsive Eyes: PERRLA, ENT: Pharynx normal. Oral Mucosa moist Neck: Normal inspection. Neck supple. CVS: Normal heart rate and rhythm. Pulses normal. Respiratory: No respiratory distress. Equal air entry bilateral, no wheezing/rales/rhonchi Abdomen: Soft and nontender. Bowel sounds are present, no mass palpable, no CVA tenderness Skin: Skin warm and dry. Normal skin color. Normal skin turgor. Extremities: No lower extremity edema. No calf tenderness Neuro: Oriented X 3. No motor deficit. No sensory deficit.No cerebellar signs , cranial nerves II-XII intact MDM - Overdose MDM Narrative Medical decision making narrative: 2044 Patient with opiate overdose urine drug screen showed positive for opiates and fentanyl patient denies any suicidal ideation or intention at this time patient is alert oriented x3 saturating 96% at room air will discharge patient home patient had magnesium 1.2 was given IV magnesium Lab Data Attestation: I reviewed the patient's lab results. Result diagrams: 10/04/21 19:07 10/04/21 19:07 Labs: Lab Results 10/04/21 10/04/21 10/04/21 Range/Units 18:37 19:07 19:07 WBC 11.3 H (4.8-10.8) X10*3/uL RBC 3.80 L (4.20-5.50) X10*6/uL Hgb 11.1 L (12.0-16.0) g/dl Hct 33.4 L (37.0-47.0) % MCV 87.9 (80.0-98.0) fL MCH 29.2 (27.0-33.0) pg MCHC 33.2 (31.0-35.0) g/dl RDW 15.0 (11.0-16.0) % Plt Count 233 D (160-400) X10*3/uL MPV 10.7 (9.4-12.3) fL Immature Gran % (Auto) 0.7 H (0.0-0.4) % Neut % (Auto) 71.2 (45-73) % Lymph % (Auto) 23.2 (20-40) % [place] % (Auto) 3.4 (2-11) % Eos % (Auto) 1.2 (0-4) % Baso % (Auto) 0.3 (0-2) % Lymph # (Auto) 2.6 (1.2-4.9) X10*3/uL [place] # (Auto) 0.4 (0.1-1.2) X10*3/uL Eos # (Auto) 0.1 (0.0-0.4) X10*3/uL Baso # (Auto) 0.0 (0.0-0.2) X10*3/uL Abs Immat Gran (auto) 0.08 H (0.00-0.03) X10*3/uL Absolute Neuts (auto) 8.1 (2.0-8.3) x10*3/uL Absolute Nucleated RBC 0.000 (0.0-0.012) X10*3/uL Nucleated RBC % (auto) 0.0 (0.0-0.2) /100WBC Sodium (135-145) mmol/L Potassium (3.3-5.1) mmol/L Chloride (96-108) mmol/L Carbon Dioxide (22-29) mmol/L Anion Gap (12-20) BUN (9-16) mg/dL Creatinine (0.5-1.4) mg/dL Estim Creat Clear Calc Estimated GFR POC Glucose 244 H (60-115) mg/dL Random Glucose (60-115) mg/dL Calcium (8.4-10.2) mg/dL Magnesium (1.6-2.6) mg/dL Total Bilirubin (0.0-1.0) mg/dL AST (5-31) U/L ALT (0-31) U/L Alkaline Phosphatase (39-117) U/L Troponin I High Sens (<3.5-17.0) ng/L Total Protein (6.5-8.0) g/dL Albumin (3.5-5.0) g/dL Salicylates (15-30) mg/dL Urine Opiates Screen (Not Detect) Urine Fentanyl Screen (Not Detect) Acetaminophen (<30) mcg/mL Ur Barbiturates Screen (Not Detect) Ur Phencyclidine Scrn (Not Detect) Ur Amphetamines Screen (Not Detect) U Benzodiazepines Scrn (Not Detect) Urine Cocaine Screen (Not Detect) U Marijuana (THC) Screen (Not Detect) COVID-19 (MARLYS) Negative (Negative) COVID-19 Clin Com See Note 10/04/21 10/04/21 10/04/21 Range/Units 19:07 19:07 20:08 WBC (4.8-10.8) X10*3/uL RBC (4.20-5.50) X10*6/uL Hgb (12.0-16.0) g/dl Hct (37.0-47.0) % MCV (80.0-98.0) fL MCH (27.0-33.0) pg MCHC (31.0-35.0) g/dl RDW (11.0-16.0) % Plt Count (160-400) X10*3/uL MPV (9.4-12.3) fL Immature Gran % (Auto) (0.0-0.4) % Neut % (Auto) (45-73) % Lymph % (Auto) (20-40) % [place] % (Auto) (2-11) % Eos % (Auto) (0-4) % Baso % (Auto) (0-2) % Lymph # (Auto) (1.2-4.9) X10*3/uL [place] # (Auto) (0.1-1.2) X10*3/uL Eos # (Auto) (0.0-0.4) X10*3/uL Baso # (Auto) (0.0-0.2) X10*3/uL Abs Immat Gran (auto) (0.00-0.03) X10*3/uL Absolute Neuts (auto) (2.0-8.3) x10*3/uL Absolute Nucleated RBC (0.0-0.012) X10*3/uL Nucleated RBC % (auto) (0.0-0.2) /100WBC Sodium 141 (135-145) mmol/L Potassium 4.4 (3.3-5.1) mmol/L Chloride 108 (96-108) mmol/L Carbon Dioxide 18 L (22-29) mmol/L Anion Gap 19 (12-20) BUN 14 (9-16) mg/dL Creatinine 1.21 (0.5-1.4) mg/dL Estim Creat Clear Calc 58.1 Estimated GFR 46 POC Glucose (60-115) mg/dL Random Glucose 254 H (60-115) mg/dL Calcium 8.7 D (8.4-10.2) mg/dL Magnesium 1.2 L* (1.6-2.6) mg/dL Total Bilirubin 0.2 (0.0-1.0) mg/dL AST 16 (5-31) U/L ALT 17 (0-31) U/L Alkaline Phosphatase 72 D (39-117) U/L Troponin I High Sens < 3.5 (<3.5-17.0) ng/L Total Protein 6.5 (6.5-8.0) g/dL Albumin 3.8 (3.5-5.0) g/dL Salicylates < 5.0 L (15-30) mg/dL Urine Opiates Screen POSITIVE H (Not Detect) Urine Fentanyl Screen POSITIVE H (Not Detect) Acetaminophen < 1 (<30) mcg/mL Ur Barbiturates Screen Not Detected (Not Detect) Ur Phencyclidine Scrn Not Detected (Not Detect) Ur Amphetamines Screen Not Detected (Not Detect) U Benzodiazepines Scrn Not Detected (Not Detect) Urine Cocaine Screen Not Detected (Not Detect) U Marijuana (THC) Screen Not Detected (Not Detect) COVID-19 (MARLYS) (Negative) COVID-19 Clin Com ECG Data Attestation: I personally reviewed and interpreted this ECG as follows: Interpretation: Sinus tachycardia with heart rate 111 beats per minute normal intervals normal axis no acute ischemic changes impression sinus tachycardia Discharge Plan Discharge Clinical Impression: Accidental opiate poisoning Patient Disposition: Home, Self-Care Instructions: Opioid Use Disorder (ED) Additional Instructions: Stop using the and prescribed drugs Follow-up with detox Prescriptions: No Action prazosin 1 mg capsule 1 cap PO BEDTIME cyclobenzaprine 5 mg tablet 5 mg PO Q8H PRN (Reason: pain (scale score 7-10)) 5 Days Qty: 14 0RF naproxen 500 mg tablet 500 mg PO BID PRN (Reason: pain) 10 Days Qty: 20 0RF acetaminophen [Tylenol Extra Strength] 500 mg tablet 500 mg PO Q6H PRN (Reason: fever or pain) Qty: 14 0RF quetiapine [Seroquel] 200 mg Tablet 200 mg PO BEDTIME lorazepam 0.5 mg Tablet 0.5 mg PO DAILY PRN (Reason: Anxiety) metformin 1,000 mg tablet 1 tab PO BID multivitamin Tablet 1 tab PO DAILY pregabalin [Lyrica] 75 mg Capsule 75 mg PO BID Qty: 60 0RF quetiapine 50 mg Tablet 50 mg PO BEDTIME Qty: 30 0RF Latuda 80 mg Tablet 160 mg PO DAILY Qty: 60 0RF
== END 2021-10-04 21:12 | disposition home or self-care (01) ==
PROVIDERS: Emergency Provider Internal Medicine
DX: T40.2X1A Poisoning by other opioids, accidental (unintentional), initial encounter (principal); F19.10 Other psychoactive substance abuse, uncomplicated; Y92.810 Car as the place of occurrence of the external cause; R00.0 Tachycardia, unspecified; R40.4 Transient alteration of awareness; E11.9 Type 2 diabetes mellitus without complications; I10 Essential (primary) hypertension; F17.200 Nicotine dependence, unspecified, uncomplicated; Z79.84 Long term (current) use of oral hypoglycemic drugs; Z79.899 Other long term (current) drug therapy; Z20.822 Contact with and (suspected) exposure to COVID-19
CPT/HCPCS: 36415; 71045; 80053; 80143; 80179; 80307; 82947; 83735; 84484; 85025; 87635; 93005; 94640; 96361; 96365; 99285; J3475

== ENCOUNTER 2021-10-07 17:39 | Emergency (ER) | payer MEDICARE, MEDICAID, SELFPAY ==
[2021-10-07 17:51] VITALS: BP 133/60; BP 133/62; PULSE 87; PULSE 96; RESP 16; O2SAT 95; O2SAT 96; BMI 39.0
[2021-10-07 17:55] LABS: Glucose, Whole Blood 212 mg/dL (60-115)
--- NOTE | 2021-10-07 18:07 | ECG_ITS ---
Test Reason : OD Blood Pressure : / mmHG Vent. Rate : 082 BPM Atrial Rate : 082 BPM P-R Int : 164 ms QRS Dur : 072 ms QT Int : 364 ms P-R-T Axes : 034 013 038 degrees QTc Int : 425 ms Normal sinus rhythm cannot exclude Septal infarct (cited on or before 04-OCT-2021) Abnormal ECG When compared with ECG of 04-OCT-2021 18:26, Nonspecific T wave abnormality no longer evident in Lateral leads Referred By: Malka Wood Electronically Signed By:LOUISE URRUTIA
--- NOTE | 2021-10-07 18:10 | ED_ITS ---
HPI - General Adult General Chief complaint: Overdose Stated complaint: SUSPECT NARCOTIC OD, IV NARCAN GIVEN W/GOOD RESULT Time Seen by Provider: 10/07/21 18:04 Source: patient and EMS Mode of arrival: EMS Limitations: no limitations History of Present Illness HPI narrative: Patient comes to the emergency room after she was found unresponsive by her friend, patient was given Narcan and patient woke up immediately. Patient was evaluated 3 days ago for the same reason. Patient states that she use Percocet prior to arrival Patient has avulsed toenail, 1st digit left foot, patient does not know what happened. Patient denies using any drugs other than oxycodone, no alcohol. Patient states that she has poor sensation in her feet and the avulsed nail does not hurt Related Data Home Medications Medication Instructions Recorded Confirmed lorazepam 0.5 mg tablet 0.5 mg PO DAILY PRN Anxiety 07/15/21 09/07/21 quetiapine 200 mg tablet (Seroquel) 200 mg PO BEDTIME 07/15/21 09/07/21 prazosin 1 mg capsule 1 cap PO BEDTIME 08/02/21 09/07/21 metformin 1,000 mg tablet 1 tab PO BID 09/03/21 09/07/21 multivitamin 1 tab PO DAILY 09/03/21 09/07/21 Previous Rx's Medication Instructions Recorded acetaminophen 500 mg tablet 500 mg PO Q6H PRN fever or pain 08/21/21 (Tylenol Extra Strength) #14 tabs cyclobenzaprine 5 mg tablet 5 mg PO Q8H PRN pain (scale score 08/21/21 7-10) 5 days #14 tabs naproxen 500 mg tablet 500 mg PO BID PRN pain 10 days #20 08/21/21 tabs lurasidone 80 mg tablet (Latuda) 160 mg PO DAILY #60 tabs 09/11/21 pregabalin 75 mg capsule (Lyrica) 75 mg PO BID #60 caps 09/11/21 quetiapine 50 mg tablet 50 mg PO BEDTIME #30 tabs 09/11/21 Allergies Allergy/AdvReac Type Severity Reaction Status Date / Time morphine [MORPHINE] Allergy Unknown RASH, vomit Verified 08/21/21 18:14 prednisone Allergy Unknown hives Verified 08/21/21 18:14 Sulfa (Sulfonamide Allergy Unknown UNKNOWN, Verified 08/21/21 18:14 Antibiotics) hives [SULFA (SULFONAMIDE ANTIBIOTICS)] Review of Systems Review of Systems: Constitutional : No Weight loss, No Fever, No Chills, No Night Sweats, No Fatigue, No Malaise ENT/Mouth : No Hearing loss, No Ear Pain, No Nasal Congestion, No Sinus Pain, No Hoarseness, No sore throat, No Rhinorrhea, No Swallowing Difficulty Eyes: No Eye Pain, No Swelling, No Redness, No Foreign Body, No Discharge, No Vision Changes Cardiovascular : No Chest Pain, No SOB, No Dyspnea on Exertion, No Orthopnea, No Edema, No Palpitations Respiratory : No Cough, No Sputum, No Wheezing, No Smoke Exposure, No Dyspnea Gastrointestinal : No Nausea, No Vomiting, No Diarrhea, No Constipation, No abdominal Pain, No Hematochezia, No Melena Genitourinary : no irregular bleeding, No Dysuria, No Urinary Frequency, No Hematuria, No Urinary Incontinence, No Urgency, No Flank Pain, No Urinary Flow Changes, No Hesitancy Musculoskeletal : No joint pain, No Myalgias, No Joint Swelling Skin : No Skin Lesions, No rash, right great toe avulsed toenail Neuro : No Weakness, No Numbness, No Paresthesias, No Loss of Consciousness, No Dizziness, No Headache Psych : No Anxiety/Panic, No Depression, No SI/HI/AH/VH, No Social Issues, Heme/Lymph: No Bruising, No Bleeding,No Lymphadenopathy Endocrine : No Polyuria, No Polydipsia, No Temperature Intolerance PMFSH Past Medical History Medical History Asthma Bipolar disorder Chronic pain Diabetes Hypertension IBS (irritable bowel syndrome) Peripheral neuropathy Polysubstance abuse Seizure Surgical History History of appendectomy Social History Social History Household Members: Other Household Members Other:: roommate Housing: Apartment Do you presently have visiting nurse or other home services: No Unable to assess alcohol history related to: Unable to respond Alcohol intake: former Patient Tobacco Use Status: Current everyday Tobacco user Substance Use Type: Painkillers Advance Directives: Yes Advance Directives on File: Yes Advance Directives Date on File: 09/03/21 service: No Current occupational status: disabled Physical Exam ED Vital Signs: Vital Signs - 24 hr 10/07/21 17:51 Pulse Rate 87 Respiratory Rate 16 Blood Pressure 133/62 Pulse Oximetry 95 Oxygen Delivery Method Room Air BMI result Body Mass Index 39.0 Const Other: Appearance: Alert. Oriented X3. No acute distress. Eyes: Pupils equal, round and reactive to light. ENT: Pharynx normal. Neck: Normal inspection. Neck supple. No lymph nodes noted. No crepitus CVS: Normal heart rate and rhythm. Pulses normal. Normal S1 and S2 Respiratory: No respiratory distress. Breath sounds normal. No Wheezing. No rales Abdomen: Soft and nontender. No rigidity. No distention. Skin: Skin warm and dry. Normal skin color. Normal skin turgor. Completely Avulsed toenail under right foot 1st toe Extremities: No lower extremity edema. No Lacerations. No Rash Neuro: Oriented X 3. No motor deficit. No sensory deficit. Moving all extremities. No slurred speech. CN 2 through 12 grossly intact Psych: calm, cooperative, normal affect Course Course Course Narrative: It is likely that patient had an unintentional overdose as she did 2 days ago. The toenail was completely avulsed. Patient had some bleeding, patient would have benefited from stitches, but patient declined. The toe was cleaned and Surgicel was applied hopefully will control the bleed All Of her labs are pending. Patient was seen by the monomer recovery supervisor. Patient has no interest in treatment. Patient did not want to talk to him. Patient was very upset that we gave her Narcan. Patient was provided with home Narcan I discussed with the patient that the ?oxycodone that she is buying off the street contains fentanyl Medical Decision Making Lab Data Result diagrams: 10/07/21 18:27 10/07/21 18:27 Labs: Lab Results 10/07/21 10/07/21 10/07/21 Range/Units 17:51 18:27 18:27 WBC 9.8 (4.8-10.8) X10*3/uL RBC 4.00 L (4.20-5.50) X10*6/uL Hgb 11.6 L (12.0-16.0) g/dl Hct 36.0 L (37.0-47.0) % MCV 90.0 (80.0-98.0) fL MCH 29.0 (27.0-33.0) pg MCHC 32.2 (31.0-35.0) g/dl RDW 15.4 (11.0-16.0) % Plt Count 255 (160-400) X10*3/uL MPV 10.9 (9.4-12.3) fL Immature Gran % (Auto) 0.4 (0.0-0.4) % Neut % (Auto) 70.5 (45-73) % Lymph % (Auto) 20.8 (20-40) % [place] % (Auto) 7.0 (2-11) % Eos % (Auto) 0.8 (0-4) % Baso % (Auto) 0.5 (0-2) % Lymph # (Auto) 2.0 (1.2-4.9) X10*3/uL [place] # (Auto) 0.7 (0.1-1.2) X10*3/uL Eos # (Auto) 0.1 (0.0-0.4) X10*3/uL Baso # (Auto) 0.1 (0.0-0.2) X10*3/uL Abs Immat Gran (auto) 0.04 H (0.00-0.03) X10*3/uL Absolute Neuts (auto) 6.9 (2.0-8.3) x10*3/uL Absolute Nucleated RBC 0.000 (0.0-0.012) X10*3/uL Nucleated RBC % (auto) 0.0 (0.0-0.2) /100WBC Sodium 142 (135-145) mmol/L Potassium 4.8 (3.3-5.1) mmol/L Chloride 106 (96-108) mmol/L Carbon Dioxide 22 (22-29) mmol/L Anion Gap 19 (12-20) BUN 13 (9-16) mg/dL Creatinine 1.04 (0.5-1.4) mg/dL Estim Creat Clear Calc 59.8 Estimated GFR 55 POC Glucose 212 H (60-115) mg/dL Random Glucose 256 H (60-115) mg/dL Calcium 8.8 (8.4-10.2) mg/dL Total Bilirubin < 0.2 (0.0-1.0) mg/dL Direct Bilirubin < 0.2 (0.0-0.5) mg/dL AST 14 (5-31) U/L ALT 19 (0-31) U/L Alkaline Phosphatase 77 (39-117) U/L Total Protein 6.7 (6.5-8.0) g/dL Albumin 3.8 (3.5-5.0) g/dL Ethyl Alcohol < 10 mg/dL Discharge Plan Discharge Clinical Impression: Accidental overdose, Avulsion of toenail of right foot Patient Disposition: Home, Self-Care Instructions: Adult Overdose (ED) Additional Instructions: Please follow-up with your primary care physician tomorrow. If you have any worsening or new symptoms, please return to the emergency room or call 911 Prescriptions: No Action prazosin 1 mg capsule 1 cap PO BEDTIME cyclobenzaprine 5 mg tablet 5 mg PO Q8H PRN (Reason: pain (scale score 7-10)) 5 Days Qty: 14 0RF naproxen 500 mg tablet 500 mg PO BID PRN (Reason: pain) 10 Days Qty: 20 0RF acetaminophen [Tylenol Extra Strength] 500 mg tablet 500 mg PO Q6H PRN (Reason: fever or pain) Qty: 14 0RF quetiapine [Seroquel] 200 mg Tablet 200 mg PO BEDTIME lorazepam 0.5 mg Tablet 0.5 mg PO DAILY PRN (Reason: Anxiety) metformin 1,000 mg tablet 1 tab PO BID multivitamin Tablet 1 tab PO DAILY pregabalin [Lyrica] 75 mg Capsule 75 mg PO BID Qty: 60 0RF quetiapine 50 mg Tablet 50 mg PO BEDTIME Qty: 30 0RF Latuda 80 mg Tablet 160 mg PO DAILY Qty: 60 0RF
[2021-10-07 18:33] LABS: MANUAL DIFF FLAG NO
[2021-10-07 18:36] LABS: Basophils Absolute Auto 0.1 X10*3/uL (0.0-0.2); Basophils Percent Auto 0.5 % (0-2); Eosinophils Absolute Auto 0.1 X10*3/uL (0.0-0.4); Eosinophils Percent Auto 0.8 % (0-4); Hemoglobin 11.6 g/dl (12.0-16.0); Imm Gran Abs Auto 0.04 X10*3/uL (0.00-0.03); Imm Gran Pct Auto 0.4 % (0.0-0.4); Lymphocytes Percent Auto 20.8 % (20-40); Mean Corpuscular HGB Conc 32.2 g/dl (31.0-35.0); Mean Platelet Volume 10.9 fL (9.4-12.3); Monocytes Absolute Auto 0.7 X10*3/uL (0.1-1.2); Neutrophils Absolute Auto 6.9 x10*3/uL (2.0-8.3); Neutrophils Percent Auto 70.5 % (45-73); Platelet Count 255 X10*3/uL (160-400); Red Cell Distribution Width 15.4 % (11.0-16.0); White Blood Count 9.8 X10*3/uL (4.8-10.8)
--- NOTE | 2021-10-07 18:47 | MHC.RECOVSUP ---
? Reason for consult:Recovery Support o Current location:[facility] [address] o Identified substance use concern:Percocet - Overdose - Support ? Intervention: o Community resources provided o Harm reduction discussion ? Plan: o Referral to [facility] o Patient to follow up with [facility] after discharge ? Additional information:Patient does not want to engage in conversation, referred patient to the [facility] and [facility], talked MAT. patient does not want to to detox.
[2021-10-07 18:50] LABS: Alanine Aminotransferase 19 U/L (0-31); Albumin Level 3.8 g/dL (3.5-5.0); Alkaline Phosphatase 77 U/L (39-117); Anion Gap 19 (12-20); Aspartate Amino Transferase 14 U/L (5-31); Bilirubin Direct < 0.2 mg/dL (0.0-0.5); Bilirubin Total < 0.2 mg/dL (0.0-1.0); Blood Urea Nitrogen 13 mg/dL (9-16); Calcium 8.8 mg/dL (8.4-10.2); Carbon Dioxide 22 mmol/L (22-29); Chloride 106 mmol/L (96-108); Creatinine Clr Calc Pharmacy 59.8; Estimated Glomerular Filt Rate 55; Ethanol < 10 mg/dL; Glucose Random 256 mg/dL (60-115); Potassium 4.8 mmol/L (3.3-5.1); Sodium 142 mmol/L (135-145); Total Protein 6.7 g/dL (6.5-8.0)
== END 2021-10-07 20:04 | disposition home or self-care (01) ==
PROVIDERS: Emergency Provider Emergency Medicine
DX: T40.2X1A Poisoning by other opioids, accidental (unintentional), initial encounter (principal); F19.10 Other psychoactive substance abuse, uncomplicated; Y92.414 Local residential or business street as the place of occurrence of the external cause; S91.202A Unspecified open wound of left great toe with damage to nail, initial encounter; X58.XXXA Exposure to other specified factors, initial encounter; E11.9 Type 2 diabetes mellitus without complications; E78.5 Hyperlipidemia, unspecified; F17.200 Nicotine dependence, unspecified, uncomplicated; Y93.9 Activity, unspecified; Y92.9 Unspecified place or not applicable; Y99.9 Unspecified external cause status; Z79.899 Other long term (current) drug therapy; Z79.84 Long term (current) use of oral hypoglycemic drugs
CPT/HCPCS: 36415; 80048; 80076; 82077; 82947; 84484; 85025; 93005; 99283

== ENCOUNTER 2021-11-10 10:42 | Emergency (ER) | payer OTHER, SELFPAY ==
[2021-11-10] VITALS (14 sets, daily range): BP systolic 76–134; BP diastolic 36–68; PULSE 54–110; RESP 10–19; TEMP 36.1–36.7; O2SAT 91–99; BMI 32.3
--- NOTE | ~2021-11-10 | XR_ITS ---
EXAMINATION: XR CHEST CLINICAL INFORMATION: Overdose COMPARISON: Chest radiographs 10/04/2021, 09/07/2021, 09/02/2021. TECHNIQUE: Portable upright AP view of the chest was obtained. FINDINGS: There are low lung volumes. No lobar or segmental airspace consolidation, vascular congestion, or effusion. The cardiopericardial silhouette is within normal limits. Hilar and mediastinal contours are normal. No visible acute bony abnormality. XR/XR chest 1V IMPRESSION: Low lung volumes. Vascularity normal. Lungs grossly clear.
--- NOTE | 2021-11-10 10:46 | ED.OVERDOSE ---
HPI - Overdose General Chief Complaint: Overdose Stated Complaint: OVERDOSE Time Seen by Provider: 11/10/21 10:44 Source: patient, EMS and old records reviewed Mode of arrival: EMS Limitations: no limitations History of Present Illness HPI Narrative: 56 yo female hx of obesity, UTI, chronic pain, prior overdose but declined SUDE evaluation. Does have home narcan - at this time. Was found asleep in the car by friends given 4mg IN narcan and woke up. Admits to taking 4 tabs of 15mg oxycodone which she gets off the street. No SI. EMS states her BP was low at first. Patient usually only dose 2 tabs today she did 2 extra due to the pain being so bad. MD complaint: accidental overdose Onset (ago): unknown Context: Accidental Overdose: wanted to get high Treatments Prior to Arrival: narcan and IV fluids Related Data Home Medications Medication Instructions Recorded Confirmed lorazepam 0.5 mg tablet 0.5 mg PO DAILY PRN Anxiety 07/15/21 09/07/21 quetiapine 200 mg tablet (Seroquel) 200 mg PO BEDTIME 07/15/21 09/07/21 prazosin 1 mg capsule 1 cap PO BEDTIME 08/02/21 09/07/21 metformin 1,000 mg tablet 1 tab PO BID 09/03/21 09/07/21 multivitamin 1 tab PO DAILY 09/03/21 09/07/21 Previous Rx's Medication Instructions Recorded acetaminophen 500 mg tablet 500 mg PO Q6H PRN fever or pain 08/21/21 (Tylenol Extra Strength) #14 tabs cyclobenzaprine 5 mg tablet 5 mg PO Q8H PRN pain (scale score 08/21/21 7-10) 5 days #14 tabs naproxen 500 mg tablet 500 mg PO BID PRN pain 10 days #20 08/21/21 tabs lurasidone 80 mg tablet (Latuda) 160 mg PO DAILY #60 tabs 09/11/21 pregabalin 75 mg capsule (Lyrica) 75 mg PO BID #60 caps 09/11/21 quetiapine 50 mg tablet 50 mg PO BEDTIME #30 tabs 09/11/21 Allergies Allergy/AdvReac Type Severity Reaction Status Date / Time morphine [MORPHINE] Allergy Unknown RASH, vomit Verified 08/21/21 18:14 prednisone Allergy Unknown hives Verified 08/21/21 18:14 Sulfa (Sulfonamide Allergy Unknown UNKNOWN, Verified 08/21/21 18:14 Antibiotics) hives [SULFA (SULFONAMIDE ANTIBIOTICS)] Review of Systems Review of Systems: Constitutional : No Fever, No Chills ENT/Mouth : No Ear Pain, No Nasal Congestion, No sore throat Eyes: No Eye Pain, No Swelling, No Redness Cardiovascular : No Chest Pain, No SOB Respiratory : No Cough, No Sputum, No Dyspnea Gastrointestinal : No Nausea, No Vomiting, No Diarrhea, No Hematochezia, No Melena Genitourinary : No Dysuria, No Urinary Frequency, No Hematuria Musculoskeletal : No Myalgias Skin : No Skin Lesions, No rash Neuro : No Weakness, No Numbness, No Paresthesias, No Dizziness, No Headache Psych : positive Anxiety, positive Depression, no SI/HI Heme/Lymph: No Lymphadenopathy Endocrine : No Polyuria, No Polydipsia All other systems reviewed and are negative PMFSH Past Medical History Attestation statement: The following information was validated with the patient. Medical History Asthma Bipolar disorder Chronic pain Diabetes Hypertension IBS (irritable bowel syndrome) Peripheral neuropathy Polysubstance abuse Seizure Surgical History History of appendectomy Social History Social History Household Members: Other Household Members Other:: roommate Housing: Apartment Do you presently have visiting nurse or other home services: No Unable to assess alcohol history related to: Unable to respond Alcohol intake: former Patient Tobacco Use Status: Current everyday Tobacco user Substance Use Type: Painkillers Advance Directives Date on File: 09/03/21 service: No Current occupational status: disabled Physical Exam Vital Signs: Vital Signs: Last Vital Signs Temp 98 F 11/10/21 15:29 Pulse 70 11/10/21 15:29 Resp 19 11/10/21 15:29 BP 101/49 L 11/10/21 15:29 Pulse Ox 98 11/10/21 15:29 O2 Del Method 11/10/21 14:39 O2 Flow Rate 2 11/10/21 14:00 BMI result Body Mass Index 32.3 Appearance: Somnolent but easily woken to voice. Oriented X3. No acute distress. Eyes: Pupils equal, round and reactive to light. ENT: Pharynx normal. Atraumatic Neck: Normal inspection. Neck supple. CVS: Normal heart rate and rhythm. Pulses normal. Respiratory: No respiratory distress. Breath sounds normal. Abdomen: Soft and non-tender. Skin: Skin warm and dry. Normal skin color. Normal skin turgor. Extremities: No lower extremity edema. No calf ttp Neuro: Oriented X 3. No motor deficit. No sensory deficit. Course Course Course Narrative: IVF are being infused but her BP is low due to opiates and she is somnolent at this time she will need narcan administration adamantly denies other ingestion, easily woken - 2L of IVF ordered lactic acidosis / hypotension due to overdose / metformin use and not infection or severe sepsis BP and HR improve with narcan - BP was high 70s after narcan she is up to high 80s, has no complaints, given 1mg narcan BP above 90s with narcan administration if BP drops down again after narcan - will place on drip UA has WBCs in it will start on rocephin possible infection suspected though I do not suspect that this is the cause of her hypotension. hypotension is related to opiate overdose met with Margret Rubio - will go to comprehensive care clinic next week chronic lactic acidosis based off records signed out to Dr. Posey anticipate the patient will be DC home after some more observation MDM - Overdose MDM Narrative Medical decision making narrative: 56 yo female hx of obesity, UTI, chronic pain, prior overdose here with accidental overdose - she agrees to evaluation this time will offer addiction medicine to get involved. Labs and IVF ordered, may require more narcan. Dispo per result and clinical improvement. Lab Data Result diagrams: 11/10/21 11:28 11/10/21 11:27 Labs: Lab Results 11/10/21 11/10/21 11/10/21 Range/Units 11: 11:27 11:28 WBC 12.8 H (4.8-10.8) X10*3/uL RBC 3.71 L (4.20-5.50) X10*6/uL Hgb 10.5 L (12.0-16.0) g/dl Hct 32.1 L (37.0-47.0) % MCV 86.5 (80.0-98.0) fL MCH 28.3 (27.0-33.0) pg MCHC 32.7 (31.0-35.0) g/dl RDW 14.6 (11.0-16.0) % Plt Count 221 (160-400) X10*3/uL MPV 10.9 (9.4-12.3) fL Immature Gran % (Auto) 0.5 H (0.0-0.4) % Neut % (Auto) 79.9 H (45-73) % Lymph % (Auto) 15.0 L (20-40) % [place] % (Auto) 4.1 (2-11) % Eos % (Auto) 0.1 (0-4) % Baso % (Auto) 0.4 (0-2) % Lymph # (Auto) 1.9 (1.2-4.9) X10*3/uL [place] # (Auto) 0.5 (0.1-1.2) X10*3/uL Eos # (Auto) 0.0 (0.0-0.4) X10*3/uL Baso # (Auto) 0.1 (0.0-0.2) X10*3/uL Abs Immat Gran (auto) 0.06 H (0.00-0.03) X10*3/uL Absolute Neuts (auto) 10.2 H (2.0-8.3) x10*3/uL Absolute Nucleated RBC 0.000 (0.0-0.012) X10*3/uL Nucleated RBC % (auto) 0.0 (0.0-0.2) /100WBC Sodium 139 (135-145) mmol/L Potassium 4.4 (3.3-5.1) mmol/L Chloride 106 (96-108) mmol/L Carbon Dioxide 18 L (22-29) mmol/L Anion Gap 19 (12-20) BUN 17 H (9-16) mg/dL Creatinine 1.32 (0.5-1.4) mg/dL Estim Creat Clear Calc 53.3 Estimated GFR 41 Random Glucose 210 H (60-115) mg/dL Lactic Acid (0.5-2.0) mmol/L Calcium 8.2 L D (8.4-10.2) mg/dL Magnesium 1.3 L* (1.6-2.6) mg/dL Total Bilirubin 0.3 (0.0-1.0) mg/dL Direct Bilirubin < 0.2 (0.0-0.5) mg/dL AST 11 (5-31) U/L ALT 11 (0-31) U/L Alkaline Phosphatase 65 (39-117) U/L Total Creatine Kinase (26-140) U/L Total Protein 6.0 L (6.5-8.0) g/dL Albumin 3.6 (3.5-5.0) g/dL Urine Color Urine Appearance Urine pH (5.0-9.0) Ur Specific [place] (1.005-1.025) Urine Protein (Neg-Trace) mg/dL Urine Glucose (UA) (Negative) mg/dL Urine Ketones (Negative) mg/dL Urine Blood (Negative) Urine Nitrite (Negative) Ur Leukocyte Esterase (Negative) Urine RBC (0-2) /HPF Urine WBC (0-5) /HPF Ur Squamous Epith Cells (0-2) /HPF Urine Bacteria (None Seen) Hyaline Casts (0-2) /LPF Salicylates < 5.0 L (15-30) mg/dL Urine Opiates Screen (Not Detect) Urine Fentanyl Screen (Not Detect) Acetaminophen < 1 (<30) mcg/mL Ur Barbiturates Screen (Not Detect) Ur Phencyclidine Scrn (Not Detect) Ur Amphetamines Screen (Not Detect) U Benzodiazepines Scrn (Not Detect) Urine Cocaine Screen (Not Detect) U Marijuana (THC) Screen (Not Detect) COVID-19 (MARLYS) Negative (Negative) COVID-19 Clin Com See Note 11/10/21 11/10/21 11/10/21 Range/Units 12:41 12:41 14:07 WBC (4.8-10.8) X10*3/uL RBC (4.20-5.50) X10*6/uL Hgb (12.0-16.0) g/dl Hct (37.0-47.0) % MCV (80.0-98.0) fL MCH (27.0-33.0) pg MCHC (31.0-35.0) g/dl RDW (11.0-16.0) % Plt Count (160-400) X10*3/uL MPV (9.4-12.3) fL Immature Gran % (Auto) (0.0-0.4) % Neut % (Auto) (45-73) % Lymph % (Auto) (20-40) % [place] % (Auto) (2-11) % Eos % (Auto) (0-4) % Baso % (Auto) (0-2) % Lymph # (Auto) (1.2-4.9) X10*3/uL [place] # (Auto) (0.1-1.2) X10*3/uL Eos # (Auto) (0.0-0.4) X10*3/uL Baso # (Auto) (0.0-0.2) X10*3/uL Abs Immat Gran (auto) (0.00-0.03) X10*3/uL Absolute Neuts (auto) (2.0-8.3) x10*3/uL Absolute Nucleated RBC (0.0-0.012) X10*3/uL Nucleated RBC % (auto) (0.0-0.2) /100WBC Sodium (135-145) mmol/L Potassium (3.3-5.1) mmol/L Chloride (96-108) mmol/L Carbon Dioxide (22-29) mmol/L Anion Gap (12-20) BUN (9-16) mg/dL Creatinine (0.5-1.4) mg/dL Estim Creat Clear Calc Estimated GFR Random Glucose (60-115) mg/dL Lactic Acid 3.7 H* (0.5-2.0) mmol/L Calcium (8.4-10.2) mg/dL Magnesium (1.6-2.6) mg/dL Total Bilirubin (0.0-1.0) mg/dL Direct Bilirubin (0.0-0.5) mg/dL AST (5-31) U/L ALT (0-31) U/L Alkaline Phosphatase (39-117) U/L Total Creatine Kinase 30 (26-140) U/L Total Protein (6.5-8.0) g/dL Albumin (3.5-5.0) g/dL Urine Color Dark Yellow Urine Appearance Cloudy Urine pH 5.0 (5.0-9.0) Ur Specific [place] 1.020 (1.005-1.025) Urine Protein 300 (3+) H (Neg-Trace) mg/dL Urine Glucose (UA) Negative (Negative) mg/dL Urine Ketones Negative (Negative) mg/dL Urine Blood Negative (Negative) Urine Nitrite Negative (Negative) Ur Leukocyte Esterase Moderate (2+) H (Negative) Urine RBC 0-2 (0-2) /HPF Urine WBC >50 H (0-5) /HPF Ur Squamous Epith Cells 6-10 (0-2) /HPF Urine Bacteria Trace (None Seen) Hyaline Casts 11-20 (0-2) /LPF Salicylates (15-30) mg/dL Urine Opiates Screen (Not Detect) Urine Fentanyl Screen (Not Detect) Acetaminophen (<30) mcg/mL Ur Barbiturates Screen (Not Detect) Ur Phencyclidine Scrn (Not Detect) Ur Amphetamines Screen (Not Detect) U Benzodiazepines Scrn (Not Detect) Urine Cocaine Screen (Not Detect) U Marijuana (THC) Screen (Not Detect) COVID-19 (MARLYS) (Negative) COVID-19 Clin Com 11/10/21 Range/Units 14:07 WBC (4.8-10.8) X10*3/uL RBC (4.20-5.50) X10*6/uL Hgb (12.0-16.0) g/dl Hct (37.0-47.0) % MCV (80.0-98.0) fL MCH (27.0-33.0) pg MCHC (31.0-35.0) g/dl RDW (11.0-16.0) % Plt Count (160-400) X10*3/uL MPV (9.4-12.3) fL Immature Gran % (Auto) (0.0-0.4) % Neut % (Auto) (45-73) % Lymph % (Auto) (20-40) % [place] % (Auto) (2-11) % Eos % (Auto) (0-4) % Baso % (Auto) (0-2) % Lymph # (Auto) (1.2-4.9) X10*3/uL [place] # (Auto) (0.1-1.2) X10*3/uL Eos # (Auto) (0.0-0.4) X10*3/uL Baso # (Auto) (0.0-0.2) X10*3/uL Abs Immat Gran (auto) (0.00-0.03) X10*3/uL Absolute Neuts (auto) (2.0-8.3) x10*3/uL Absolute Nucleated RBC (0.0-0.012) X10*3/uL Nucleated RBC % (auto) (0.0-0.2) /100WBC Sodium (135-145) mmol/L Potassium (3.3-5.1) mmol/L Chloride (96-108) mmol/L Carbon Dioxide (22-29) mmol/L Anion Gap (12-20) BUN (9-16) mg/dL Creatinine (0.5-1.4) mg/dL Estim Creat Clear Calc Estimated GFR Random Glucose (60-115) mg/dL Lactic Acid (0.5-2.0) mmol/L Calcium (8.4-10.2) mg/dL Magnesium (1.6-2.6) mg/dL Total Bilirubin (0.0-1.0) mg/dL Direct Bilirubin (0.0-0.5) mg/dL AST (5-31) U/L ALT (0-31) U/L Alkaline Phosphatase (39-117) U/L Total Creatine Kinase (26-140) U/L Total Protein (6.5-8.0) g/dL Albumin (3.5-5.0) g/dL Urine Color Urine Appearance Urine pH (5.0-9.0) Ur Specific [place] (1.005-1.025) Urine Protein (Neg-Trace) mg/dL Urine Glucose (UA) (Negative) mg/dL Urine Ketones (Negative) mg/dL Urine Blood (Negative) Urine Nitrite (Negative) Ur Leukocyte Esterase (Negative) Urine RBC (0-2) /HPF Urine WBC (0-5) /HPF Ur Squamous Epith Cells (0-2) /HPF Urine Bacteria (None Seen) Hyaline Casts (0-2) /LPF Salicylates (15-30) mg/dL Urine Opiates Screen Not Detected (Not Detect) Urine Fentanyl Screen POSITIVE H (Not Detect) Acetaminophen (<30) mcg/mL Ur Barbiturates Screen Not Detected (Not Detect) Ur Phencyclidine Scrn Not Detected (Not Detect) Ur Amphetamines Screen Not Detected (Not Detect) U Benzodiazepines Scrn Not Detected (Not Detect) Urine Cocaine Screen Not Detected (Not Detect) U Marijuana (THC) Screen Not Detected (Not Detect) COVID-19 (MARLYS) (Negative) COVID-19 Clin Com ECG Data Attestation: I personally reviewed and interpreted this ECG as follows: ECG interpretation date: 11/10/21 ECG interpretation time: 12:17 Interpretation: Rate: 80 Rhythm: NSR [place]: left Normal P waves. Normal VEE. incomplete RBBB ST T wave : normal no ARTHUR qTC: prolonged prior studies: no acute ischemia The study has been interpreted contemporaneously by me. . Discharge Plan Discharge Clinical Impression: Overdose, UTI (urinary tract infection), Hypomagnesemia, Acidosis, lactic Patient Disposition: Still a Patient Instructions: Adult Overdose (ED), Hypomagnesemia (ED), Urinary Tract Infection in Women (ED) Additional Instructions: return to ED for any worsening symptoms or concerns Prescriptions: No Action prazosin 1 mg capsule 1 cap PO BEDTIME cyclobenzaprine 5 mg tablet 5 mg PO Q8H PRN (Reason: pain (scale score 7-10)) 5 Days Qty: 14 0RF naproxen 500 mg tablet 500 mg PO BID PRN (Reason: pain) 10 Days Qty: 20 0RF acetaminophen [Tylenol Extra Strength] 500 mg tablet 500 mg PO Q6H PRN (Reason: fever or pain) Qty: 14 0RF quetiapine [Seroquel] 200 mg Tablet 200 mg PO BEDTIME lorazepam 0.5 mg Tablet 0.5 mg PO DAILY PRN (Reason: Anxiety) metformin 1,000 mg tablet 1 tab PO BID multivitamin Tablet 1 tab PO DAILY pregabalin [Lyrica] 75 mg Capsule 75 mg PO BID Qty: 60 0RF quetiapine 50 mg Tablet 50 mg PO BEDTIME Qty: 30 0RF Latuda 80 mg Tablet 160 mg PO DAILY Qty: 60 0RF
[2021-11-10] MEDS: Lactated Ringers 1,000 ML 999 ML IV ×2 (11:09→12:27)
--- NOTE | 2021-11-10 11:13 | PC.NURSE ---
sleeping, resp eevn and unlabored, easily woken, nad, lr infusing
[2021-11-10 11:32] LABS: MANUAL DIFF FLAG NO
[2021-11-10 11:38] LABS: Basophils Absolute Auto 0.1 X10*3/uL (0.0-0.2); Basophils Percent Auto 0.4 % (0-2); Eosinophils Percent Auto 0.1 % (0-4); Hematocrit 32.1 % (37.0-47.0); Hemoglobin 10.5 g/dl (12.0-16.0); Imm Gran Abs Auto 0.06 X10*3/uL (0.00-0.03); Imm Gran Pct Auto 0.5 % (0.0-0.4); Lymphocytes Absolute Auto 1.9 X10*3/uL (1.2-4.9); Mean Corpuscular HGB Conc 32.7 g/dl (31.0-35.0); Mean Corpuscular Hemoglobin 28.3 pg (27.0-33.0); Mean Corpuscular Volume 86.5 fL (80.0-98.0); Mean Platelet Volume 10.9 fL (9.4-12.3); Monocytes Absolute Auto 0.5 X10*3/uL (0.1-1.2); Monocytes Percent Auto 4.1 % (2-11); Neutrophils Absolute Auto 10.2 x10*3/uL (2.0-8.3); Neutrophils Percent Auto 79.9 % (45-73); Platelet Count 221 X10*3/uL (160-400); Red Blood Count 3.71 X10*6/uL (4.20-5.50); Red Cell Distribution Width 14.6 % (11.0-16.0); White Blood Count 12.8 X10*3/uL (4.8-10.8)
[2021-11-10] MEDS: Naloxone HCl 0.4 MG/ML VIAL 0.2 MG IVPUSH (11:47)
[2021-11-10 11:49] LABS: COVID-19 Test Negative (Negative)
--- NOTE | 2021-11-10 11:49 | PC.NURSE ---
sleeping and easily woken, skin wpd, repeat bp 70's /40's, .2 narcan iv given, easily woken, resp even and unlabored, immediately more awake after naarcan, lr infusing w presssure bag
[2021-11-10 12:04] LABS: Acetaminophen LAB < 1 mcg/mL (<30); Alanine Aminotransferase 11 U/L (0-31); Albumin Level 3.6 g/dL (3.5-5.0); Alkaline Phosphatase 65 U/L (39-117); Anion Gap 19 (12-20); Aspartate Amino Transferase 11 U/L (5-31); Bilirubin Direct < 0.2 mg/dL (0.0-0.5); Bilirubin Total 0.3 mg/dL (0.0-1.0); Blood Urea Nitrogen 17 mg/dL (9-16); Calcium 8.2 mg/dL (8.4-10.2); Carbon Dioxide 18 mmol/L (22-29); Chloride 106 mmol/L (96-108); Creatinine Clr Calc Pharmacy 53.3; Estimated Glomerular Filt Rate 41; Glucose Random 210 mg/dL (60-115); Magnesium 1.3 mg/dL (1.6-2.6); Potassium 4.4 mmol/L (3.3-5.1); Salicylate < 5.0 mg/dL (15-30); Sodium 139 mmol/L (135-145)
--- NOTE | 2021-11-10 12:04 | ECG_ITS ---
Test Reason : overdose Blood Pressure : / mmHG Vent. Rate : 078 BPM Atrial Rate : 078 BPM P-R Int : 162 ms QRS Dur : 088 ms QT Int : 404 ms P-R-T Axes : 052 -04 032 degrees QTc Int : 460 ms Poor data quality, interpretation may be adversely affected Normal sinus rhythm Normal ECG When compared with ECG of 07-OCT-2021 18:25, No significant change was found Referred By: Kiki Huber Electronically Signed By:
[2021-11-10] MEDS: Magnesium Sulfate/H2O 2 GM/50 ML PIGGYBACK IV (12:27)
[2021-11-10 13:00] LABS: Lactic Acid 3.7 mmol/L (0.5-2.0)
[2021-11-10] MEDS: Naloxone HCl 2 MG/2 ML SYRINGE 1 MG IVPUSH (13:48)
[2021-11-10] MEDS: 0.9 % Sodium Chloride 1,000 ML 999 ML IVCONT (13:50)
--- NOTE | 2021-11-10 13:53 | PC.NURSE ---
sr on monitor, narcan 1 mg given and now more awake, another ns bolus started,
--- NOTE | 2021-11-10 14:14 | HO.SUDE ---
Met with pt in ED6 to discuss substance use and options for treatment after overdose earlier today. Pt reports using Percocet, 6 tabs PO every few weeks (initially had reported a few times a week). Pt denies other substances. Pt reports back surgery approx 10 years ago and receiving opioid prescriptions. After prescriptions were discontinued, pt began buying pills. Pt educated regarding fentanyl/pressed fentanyl and risk for overdose. Pt reports pain and neuropathy also have been factors in continued use. Pt denies hx heroin use. Pt reports a couple overdoses in the past which required Narcan and ED visits. Pt denies receiving tx for OUD. Pt educated regarded junie LANE interested in Suboxone and connection to the [facility]. Pt has intake appointment at [facility] on Wednesday 11/15 at 2PM. Discussed with provider as well as RN.
[2021-11-10 14:19] LABS: Appearance Urine Cloudy; Color Urine Dark Yellow; Glucose Urine UA Negative (Negative); Leukocyte Esterase Urine Moderate (2+) (Negative); Nitrite Urine Negative (Negative); Urine Blood Negative (Negative); Urine Ketones Negative (Negative); Urine Protein 300 (3+) mg/dL (Neg-Trace)
[2021-11-10 14:26] LABS: Bacteria Urine Trace (None Seen); RBC Urine 0-2 /HPF (0-2); WBC Urine >50 /HPF (0-5)
[2021-11-10 14:34] LABS: Amphetamine Screen Urine Not Detected (Not Detect); Barbiturates, Urine Not Detected (Not Detect); Benzodiazepines Screen Urine Not Detected (Not Detect); Cannabinoid Screen Urine Not Detected (Not Detect); Cocaine Screen Urine Not Detected (Not Detect); Fentanyl, urine POSITIVE (Not Detect); Opiate Screen Urine Not Detected (Not Detect); Phencyclidine Screen Urine Not Detected (Not Detect)
[2021-11-10 14:44] LABS: Reflex Lactate? Lactic Acid Added
[2021-11-10 14:59] LABS: UACC Culture Trigger YES
[2021-11-10] MEDS: 0.9 % Sodium Chloride 1,000 ML 999 ML IV (15:29)
[2021-11-10 16:21] LABS: ~Lactic Acid-LAB USE ONLY 2.8 mmol/L (0.5-2.0)
[2021-11-10] MEDS: cefTRIAXone sodium 1 GM in 0.9 % Sodium Chloride 50 ML IV (16:21)
--- NOTE | 2021-11-10 16:44 | MHC.RECOVSUP ---
? Reason for consult Recovery Support o Current location: ED06 o Identified substance use concern: Opiate - Overdose - Seeking ATS (detox) - Support ? Intervention: o MAT started or to be started o Community resources provided o Harm reduction discussion ? Plan: o Referral to [facility] o Patient awaiting crisis evaluation o Patient to follow up with [facility] after discharge ? Additional information: Met with Patient.. Patient Stated that she was going to try MAT.. We talked about recovery and Harm reduction.. We also talked about [facility] as a Recovery support..
--- NOTE | 2021-11-10 16:54 | PC.NURSE ---
DR KAMINSKI WANTED PT TO STAY 2 MORE HOURS, PT ADAMNANT ABOUT LEAVING NOW, SIGNED PAPERWORK AND LEFT W NAD, STEADY GAIT SPEECH CLEAR, SKIN WPD
[2021-11-10 17:14] LABS: Cancel Lactic Acid Canceled
== END 2021-11-10 16:54 | disposition still patient (30) ==
PROVIDERS: Emergency Medicine; Emergency Provider Student in an Organized Health Care Education/Training Program; PCP Nurse Practitioner Family
DX: T40.2X1A Poisoning by other opioids, accidental (unintentional), initial encounter (principal); Y92.9 Unspecified place or not applicable; N39.0 Urinary tract infection, site not specified; E83.42 Hypomagnesemia; E87.2 Acidosis; Z20.822 Contact with and (suspected) exposure to COVID-19; Z79.899 Other long term (current) drug therapy
CPT/HCPCS: 36415; 71045; 80048; 80076; 80143; 80179; 80307; 81001; 82550; 83605; 83735; 85025; 87040; 87086; 87635; 93005; 96374; 96375; 96376; 99285; J0696; J3475

== ENCOUNTER 2022-01-15 00:23 | Inpatient (IN) | payer OTHER, SELFPAY ==
[2022-01-15] VITALS (13 sets, daily range): BP systolic 114–228; BP diastolic 49–98; PULSE 82–99; RESP 10–20; TEMP 36.2–37.1; O2SAT 3–100; BMI 35.0
--- NOTE | ~2022-01-15 | XR_ITS ---
EXAMINATION: XR CHEST CLINICAL INFORMATION: Difficulty breathing. Overdose COMPARISON: 11/10/2021 TECHNIQUE: Frontal view of the chest was obtained. FINDINGS: Lungs grossly clear. Heart and pulmonary vessels normal. traffic monitor specialist leads present. There is degenerative change in the right glenohumeral joint. XR/XR chest 1V IMPRESSION: Unremarkable examination.
--- NOTE | ~2022-01-15 | XR_ITS ---
EXAMINATION: XR CHEST CLINICAL INFORMATION: Overdose evaluate for aspiration. COMPARISON: 01/15/2022 chest radiograph. TECHNIQUE: Frontal view of the chest was obtained. FINDINGS: No significant abnormality is noted involving the heart, lungs, mediastinum, bony thorax or soft tissues. XR/XR chest 1V IMPRESSION: No acute cardiopulmonary process.
--- NOTE | ~2022-01-15 | CT_ITS ---
EXAMINATION: CT HEAD WITHOUT CONTRAST CLINICAL INFORMATION: Altered mental status COMPARISON: 09/08/2021 TECHNIQUE: Contiguous axial imaging was performed from the skull base to vertex without intravenous administration of contrast. This CT examination was performed using dose optimization techniques as appropriate, variously including the following: *Automated exposure control *Adjustment of mA and/or kV according to patient size (this includes techniques or standardized protocols for targeted exams where dose is matched to indication/reason for exam; i.e. extremities or head) *Use of iterative reconstruction technique DLP: 128 mGy-cm FINDINGS: Suboptimal assessment in some regions due to motion artifact. There is no evidence of acute intracranial hemorrhage or territorial infarction. No abnormal mass-effect or midline shift is seen. [place] to white matter differentiation is well preserved. No extra-axial fluid collections are identified. The ventricles are normal in size. There is no abnormal attenuation within the brain parenchyma. The osseous structures and soft tissues are normal. The mastoid air cells and visualized portions of the paranasal sinuses are well-aerated. CT/CT head/brain wo IV con IMPRESSION: Suboptimal assessment in some regions due to motion artifact. No acute intracranial pathology identified.
--- NOTE | ~2022-01-15 | CT_ITS ---
EXAMINATION: CT abdomen pelvis w IV con CLINICAL INFORMATION: Reason for Exam abd distension/mass COMPARISON: Prior CT 07/15/2021 TECHNIQUE: Multidetector volumetric imaging was performed from the superior aspect of the liver through the pubic symphysis 100 mL of Omnipaque 350 injected Sagittal and coronal reformatted images were obtained on the technologist's workstation. This CT examination was performed using dose optimization techniques as appropriate, variously including the following: *Automated exposure control *Adjustment of mA and/or kV according to patient size (this includes techniques or standardized protocols for targeted exams where dose is matched to indication/reason for exam; i.e. extremities or head) *Use of iterative reconstruction technique DLP: 1528 mGy-cm FINDINGS: LOWER THORAX: Included lung bases are clear. HEPATOBILIARY: No focal hepatic lesions. No biliary ductal dilatation. GALLBLADDER: Gallbladder unremarkable. SPLEEN: Spleen is normal in size. PANCREAS: No focal mass or ductal dilatation. STOMACH AND GASTROINTESTINAL TRACT: Stomach is grossly unremarkable. There is no bowel distention or thickening. Surgical suture lines in the cecum probably prior appendectomy. No CT evidence of dehiscence. No obstruction. ADRENALS: No adrenal nodules. KIDNEYS/URETERS: Cortical defect in the right kidney might be an old injury could be congenital, mild hypertrophic left kidney, this is chronic unchanged, no kidney stone or hydronephrosis. Perinephric fat are clear. URINARY BLADDER: Partially decompressed. PELVIC VISCERA: Unremarkable PERITONEUM: No free air or fluid. LYMPH NODES: No lymphadenopathy. VASCULAR:Abdominal aorta normal in size, no aneurysm found. BONES, ABDOMINAL WALL AND SOFT TISSUES: 2 rods, posterior fusion of the lumbar spine, hardware intact. Underlying degenerative disc disease. Stable mild compression of L3. CT/CT abdomen pelvis w IV con IMPRESSION: 1. No CT evidence of acute intra-abdominal process to explain patient's pain symptoms. 2. Postsurgical changes in the cecum probably prior appendectomy. No CT evidence of dehiscence. 3. Other noncritical findings described above are stable.
--- NOTE | ~2022-01-15 | XR_ITS ---
EXAMINATION: XR CHEST CLINICAL INFORMATION: Fever COMPARISON: 01/16/2022 TECHNIQUE: AP portable upright view of the chest FINDINGS: EKG leads overlie the chest. Lungs are clear. No consolidation, pneumothorax, or pleural effusion. Cardiac and mediastinal contours are normal. Pulmonary vasculature is unremarkable. 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 XR/XR chest 1V IMPRESSION: No acute cardiopulmonary findings
--- NOTE | 2022-01-15 00:37 | ECG_ITS ---
Test Reason : OVERDOSED Blood Pressure : / mmHG Vent. Rate : 102 BPM Atrial Rate : 102 BPM P-R Int : 140 ms QRS Dur : 076 ms QT Int : 344 ms P-R-T Axes : 029 006 078 degrees QTc Int : 448 ms Sinus tachycardia RSR' or QR pattern in V1 suggests right ventricular conduction delay Nonspecific T wave abnormality Lateral leads Abnormal ECG When compared with ECG of 10-NOV-2021 12:04, Heart rate has increased Nonspecific T wave abnormality Lateral leads is new Referred By: Mikie Salvador Electronically Signed By:ROLANDA CAAL MD
[2022-01-15 00:42] LABS: Glucose, Whole Blood 386 mg/dL (60-115)
[2022-01-15 00:44] LABS: MANUAL DIFF FLAG NO
[2022-01-15 00:46] LABS: Basophils Percent Auto 0.3 % (0-2); Eosinophils Percent Auto 0.3 % (0-4); Hematocrit 36.3 % (37.0-47.0); Hemoglobin 11.4 g/dl (12.0-16.0); Imm Gran Abs Auto 0.09 X10*3/uL (0.00-0.03); Imm Gran Pct Auto 0.7 % (0.0-0.4); Lymphocytes Absolute Auto 2.6 X10*3/uL (1.2-4.9); Lymphocytes Percent Auto 21.7 % (20-40); Mean Corpuscular HGB Conc 31.4 g/dl (31.0-35.0); Mean Corpuscular Hemoglobin 26.8 pg (27.0-33.0); Mean Corpuscular Volume 85.2 fL (80.0-98.0); Mean Platelet Volume 11.7 fL (9.4-12.3); Monocytes Absolute Auto 0.5 X10*3/uL (0.1-1.2); Monocytes Percent Auto 4.3 % (2-11); Neutrophils Absolute Auto 8.7 x10*3/uL (2.0-8.3); Neutrophils Percent Auto 72.7 % (45-73); Platelet Count 192 X10*3/uL (160-400); Red Blood Count 4.26 X10*6/uL (4.20-5.50); Red Cell Distribution Width 15.2 % (11.0-16.0)
[2022-01-15 01:07] LABS: Prothrombin Time 11.1 SEC (10.0-13.1)
[2022-01-15 01:08] LABS: Alanine Aminotransferase 21 U/L (0-31); Alkaline Phosphatase 103 U/L (39-117); Anion Gap 24 (12-20); Aspartate Amino Transferase 25 U/L (5-31); Bilirubin Total 0.4 mg/dL (0.0-1.0); Blood Urea Nitrogen 43 mg/dL (9-16); Calcium 8.6 mg/dL (8.4-10.2); Carbon Dioxide 19 mmol/L (22-29); Chloride 100 mmol/L (96-108); Creatinine Clr Calc Pharmacy 37.6; Estimated Glomerular Filt Rate 27; Glucose Random 441 mg/dL (60-115); Lactic Acid 5.8 mmol/L (0.5-2.0); Potassium 4.8 mmol/L (3.3-5.1); Sodium 138 mmol/L (135-145); Total Protein 7.1 g/dL (6.5-8.0)
[2022-01-15 01:10] LABS: Partial Thromboplastin Time 29.4 SEC (26.0-36.4)
[2022-01-15 01:19] LABS: Venous Blood Gas Refer to POC result
[2022-01-15 01:19] LABS: VBG Base Excess 0.2 mmol/L; VBG HCO3 24 mmol/L (22-26); VBG pCO2 37 mmHg; VBG pH 7.42 (7.32-7.43); VBG pO2 185 mmHg
[2022-01-15] MEDS: Insulin Regular, Human 100 UNIT/ML 3 ML VIAL 10 UNIT IVPUSH (01:29)
[2022-01-15] MEDS: 0.9 % Sodium Chloride 2,000 ML 999 ML IVCONT (01:31)
[2022-01-15] MEDS: ondansetron HCL 4 MG/2 ML VIAL IVPUSH (01:31)
[2022-01-15 01:34] LABS: Troponin-I High Sensitivity 4.2 ng/L (<3.5-17.0)
[2022-01-15 01:35] LABS: B Type Natriuretic Peptide < 10 pg/mL (<100)
[2022-01-15 01:52] LABS: Influenza A PCR NEGATIVE (Negative); Influenza B PCR NEGATIVE (Negative); Resp Syncy Virus RNA Qual PCR NEGATIVE (Negative); SARS COV2 PCR INHOUSE NEGATIVE (Negative)
--- NOTE | 2022-01-15 01:53 | ED_ITS ---
HPI - Overdose General Chief Complaint: Overdose Stated Complaint: ?od, unresponsive Source: EMS Mode of arrival: EMS Limitations: other (Unresponsive) History of Present Illness HPI Narrative: Patient comes to the emergency room via EMS. According to EMS, the patient's roommate found her unresponsive, with agonal breathing, unknown down time. EMS reports that the roommate said that the patient uses fentanyl as her drug of choice. EMS gave her 5 mg of Narcan via an IO which was placed via EMS of the tibia. Patient initially woke up but return to sleep immediately and was very difficult to arouse, patient need to be ventilated via bag-valve mask. On arrival to the emergency room, patient still unresponsive Related Data Home Medications Medication Instructions Recorded Confirmed lorazepam 0.5 mg tablet 0.5 mg PO DAILY PRN Anxiety 07/15/21 09/07/21 quetiapine 200 mg tablet (Seroquel) 200 mg PO BEDTIME 07/15/21 09/07/21 prazosin 1 mg capsule 1 cap PO BEDTIME 08/02/21 09/07/21 metformin 1,000 mg tablet 1 tab PO BID 09/03/21 09/07/21 multivitamin 1 tab PO DAILY 09/03/21 09/07/21 Previous Rx's Medication Instructions Recorded acetaminophen 500 mg tablet 500 mg PO Q6H PRN fever or pain 08/21/21 (Tylenol Extra Strength) #14 tabs cyclobenzaprine 5 mg tablet 5 mg PO Q8H PRN pain (scale score 08/21/21 7-10) 5 days #14 tabs naproxen 500 mg tablet 500 mg PO BID PRN pain 10 days #20 08/21/21 tabs lurasidone 80 mg tablet (Latuda) 160 mg PO DAILY #60 tabs 09/11/21 pregabalin 75 mg capsule (Lyrica) 75 mg PO BID #60 caps 09/11/21 quetiapine 50 mg tablet 50 mg PO BEDTIME #30 tabs 09/11/21 cefuroxime axetil 250 mg tablet 250 mg PO Q12H 7 days #14 tabs 11/10/21 Allergies Allergy/AdvReac Type Severity Reaction Status Date / Time morphine [MORPHINE] Allergy Unknown RASH, vomit Verified 01/15/22 00:48 prednisone Allergy Unknown hives Verified 01/15/22 00:48 Sulfa (Sulfonamide Allergy Unknown UNKNOWN, Verified 01/15/22 00:48 Antibiotics) hives [SULFA (SULFONAMIDE ANTIBIOTICS)] Review of Systems Review of Systems: Yes Other (Unresponsive due to overdose) [facility] Past Medical History Medical History Asthma Bipolar disorder Chronic pain Diabetes Hypertension IBS (irritable bowel syndrome) Peripheral neuropathy Polysubstance abuse Seizure Surgical History History of appendectomy Social History Social History Household Members: Other Household Members Other:: roommate Housing: Apartment Do you presently have visiting nurse or other home services: No Unable to assess alcohol history related to: Unable to respond Alcohol intake: former Patient Tobacco Use Status: Current everyday Tobacco user Substance Use Type: Painkillers Advance Directives: Yes Advance Directives on File: Yes Advance Directives Date on File: 09/03/21 service: No Current occupational status: disabled Physical Exam Vital Signs: Vital Signs: Last Vital Signs Temp 97.4 F 01/15/22 03:47 Pulse 87 01/15/22 03:47 Resp 16 01/15/22 03:47 BP 144/62 H 01/15/22 03:47 Pulse Ox 92 01/15/22 03:47 O2 Del Method 01/15/22 03:47 O2 Flow Rate 15 01/15/22 03:47 BMI result Body Mass Index 35.0 Const: Other: Appearance: Unresponsive Eyes: Pinpoint pupils bilaterally ENT: Pharynx normal. Neck: Normal inspection. Neck supple. No lymph nodes noted. No crepitus CVS: Normal heart rate and rhythm. Pulses normal. Normal S1 and S2 Respiratory: No respiratory distress, patient spontaneously breathing, oxygen saturation in the mid 80s, improved to 100% on 2 L Abdomen: Soft and nontender. No rigidity. No distention. Skin: Skin warm and dry. Normal skin color. Normal skin turgor. Extremities: No lower extremity edema. No Lacerations. No Rash Neuro: Oriented X 3. No motor deficit. No sensory deficit. Moving all extremities. No slurred speech. CN 2 through 12 grossly intact Psych: calm, cooperative, normal affect Course Course Course Narrative: Per EMS, patient received 5 mg of Narcan IO. Here in the emergency room we gave the patient 12 mg of intranasal Narcan. Patient started waking up, vomiting, patient went back to sleep. Patient is on 2 L oxygen. Still is very somnolent, minimally responsive to painful touch. Patient will be started on a Narcan drip. We will keep the patient on a drip for the next few hours, then we will re-evaluate. Patient is breathing spontaneously Patient's white blood cell count is elevated chronically Patient has DANY, creatinine 1.93, lactic acid 5.8. Patient receiving IV fluids. This labs are likely secondary to the overdose itself. Sepsis is not suspected. Patient was hypoxic/unresponsive for an unknown period of time Patient is on a Narcan drip. Patient is low least starting to wake up. Patient opens her eyes on command but goes right back to sleep. Ideally, patient should be admitted to the intensive care unit, but we do not have beds. Patient cannot be admitted to the floor with a Narcan drip running. Were going to manage the patient in the emergency room until patient is more awake. Patient remains stable, breathing spontaneously 05:30, patient is slightly more awake, moves all extremities, opens her eyes on command but goes back to sleep. Patient is still on the Narcan drip. Patient is now on nasal cannula saturating 100% on 2 L. I started 2 L of fluid, patient's chemistry will be rechecked, expecting an improvement in creatinine. Once patient is awake, patient would benefit from a care consult for a SUDE evaluation head CT pending 06:30: Patient is awake, still moaning, answering yes no questions, in answering with short sentences. When asked if patient attempted to hurt herself, patient states now, says it was an accident Patient is currently on a 2nd Narcan drip. Estimating that it will be done by 09:00. Patient will likely need to be admitted Sign-out given to Dr. Caruso MDM - Overdose Lab Data Result diagrams: 01/15/22 00:39 01/15/22 06:07 Labs: Lab Results 01/15/22 01/15/22 01/15/22 Range/Units 00:37 00:39 00:39 WBC 12.0 H (4.8-10.8) X10*3/uL RBC 4.26 (4.20-5.50) X10*6/uL Hgb 11.4 L (12.0-16.0) g/dl Hct 36.3 L (37.0-47.0) % MCV 85.2 (80.0-98.0) fL MCH 26.8 L (27.0-33.0) pg MCHC 31.4 (31.0-35.0) g/dl RDW 15.2 (11.0-16.0) % Plt Count 192 (160-400) X10*3/uL MPV 11.7 (9.4-12.3) fL Immature Gran % (Auto) 0.7 H (0.0-0.4) % Neut % (Auto) 72.7 (45-73) % Lymph % (Auto) 21.7 (20-40) % Tal[place]ferro % (Auto) 4.3 (2-11) % Eos % (Auto) 0.3 (0-4) % Baso % (Auto) 0.3 (0-2) % Lymph # (Auto) 2.6 (1.2-4.9) X10*3/uL [place]ferro # (Auto) 0.5 (0.1-1.2) X10*3/uL Eos # (Auto) 0.0 (0.0-0.4) X10*3/uL Baso # (Auto) 0.0 (0.0-0.2) X10*3/uL Abs Immat Gran (auto) 0.09 H (0.00-0.03) X10*3/uL Absolute Neuts (auto) 8.7 H (2.0-8.3) x10*3/uL Absolute Nucleated RBC 0.000 (0.0-0.012) X10*3/uL Nucleated RBC % (auto) 0.0 (0.0-0.2) /100WBC PT 11.1 (10.0-13.1) SEC INR 1.0 (0.9-1.1) APTT 29.4 (26.0-36.4) SEC VBG pH (7.32-7.43) VBG pCO2 mmHg VBG pO2 mmHg VBG HCO3 (22-26) mmol/L VBG O2 Saturation % VBG Base Excess mmol/L Sodium (135-145) mmol/L Potassium (3.3-5.1) mmol/L Chloride (96-108) mmol/L Carbon Dioxide (22-29) mmol/L Anion Gap (12-20) BUN (9-16) mg/dL Creatinine (0.5-1.4) mg/dL Estim Creat Clear Calc Estimated GFR POC Glucose 386 H* (60-115) mg/dL Random Glucose (60-115) mg/dL Lactic Acid (0.5-2.0) mmol/L Lactic Acid F/U @ 2Hr (0.5-2.0) mmol/L Calcium (8.4-10.2) mg/dL Total Bilirubin (0.0-1.0) mg/dL AST (5-31) U/L ALT (0-31) U/L Alkaline Phosphatase (39-117) U/L Troponin I High Sens (<3.5-17.0) ng/L B-Natriuretic Peptide (<100) pg/mL Total Protein (6.5-8.0) g/dL Albumin (3.5-5.0) g/dL Urine Opiates Screen (Not Detect) Urine Fentanyl Screen (Not Detect) Ur Barbiturates Screen (Not Detect) Ur Phencyclidine Scrn (Not Detect) Ur Amphetamines Screen (Not Detect) U Benzodiazepines Scrn (Not Detect) Urine Cocaine Screen (Not Detect) U Marijuana (THC) Screen (Not Detect) Influenza Type A (PCR) (Negative) Influenza Type B (PCR) (Negative) RSV RNA Qual (PCR) (Negative) SARS-CoV-2 RNA (RT-PCR) (Negative) 01/15/22 01/15/22 01/15/22 Range/Units 00:39 00:39 00:59 WBC (4.8-10.8) X10*3/uL RBC (4.20-5.50) X10*6/uL Hgb (12.0-16.0) g/dl Hct (37.0-47.0) % MCV (80.0-98.0) fL MCH (27.0-33.0) pg MCHC (31.0-35.0) g/dl RDW (11.0-16.0) % Plt Count (160-400) X10*3/uL MPV (9.4-12.3) fL Immature Gran % (Auto) (0.0-0.4) % Neut % (Auto) (45-73) % Lymph % (Auto) (20-40) % Taliaferro % (Auto) (2-11) % Eos % (Auto) (0-4) % Baso % (Auto) (0-2) % Lymph # (Auto) (1.2-4.9) X10*3/uL [place]ferro # (Auto) (0.1-1.2) X10*3/uL Eos # (Auto) (0.0-0.4) X10*3/uL Baso # (Auto) (0.0-0.2) X10*3/uL Abs Immat Gran (auto) (0.00-0.03) X10*3/uL Absolute Neuts (auto) (2.0-8.3) x10*3/uL Absolute Nucleated RBC (0.0-0.012) X10*3/uL Nucleated RBC % (auto) (0.0-0.2) /100WBC PT (10.0-13.1) SEC INR (0.9-1.1) APTT (26.0-36.4) SEC VBG pH (7.32-7.43) VBG pCO2 mmHg VBG pO2 mmHg VBG HCO3 (22-26) mmol/L VBG O2 Saturation % VBG Base Excess mmol/L Sodium 138 (135-145) mmol/L Potassium 4.8 (3.3-5.1) mmol/L Chloride 100 (96-108) mmol/L Carbon Dioxide 19 L (22-29) mmol/L Anion Gap 24 H (12-20) BUN 43 H D (9-16) mg/dL Creatinine 1.93 H (0.5-1.4) mg/dL Estim Creat Clear Calc 37.6 Estimated GFR 27 POC Glucose (60-115) mg/dL Random Glucose 441 H* (60-115) mg/dL Lactic Acid 5.8 H* (0.5-2.0) mmol/L Lactic Acid F/U @ 2Hr (0.5-2.0) mmol/L Calcium 8.6 (8.4-10.2) mg/dL Total Bilirubin 0.4 (0.0-1.0) mg/dL AST 25 D (5-31) U/L ALT 21 (0-31) U/L Alkaline Phosphatase 103 D (39-117) U/L Troponin I High Sens (<3.5-17.0) ng/L B-Natriuretic Peptide (<100) pg/mL Total Protein 7.1 (6.5-8.0) g/dL Albumin 4.0 (3.5-5.0) g/dL Urine Opiates Screen (Not Detect) Urine Fentanyl Screen (Not Detect) Ur Barbiturates Screen (Not Detect) Ur Phencyclidine Scrn (Not Detect) Ur Amphetamines Screen (Not Detect) U Benzodiazepines Scrn (Not Detect) Urine Cocaine Screen (Not Detect) U Marijuana (THC) Screen (Not Detect) Influenza Type A (PCR) NEGATIVE (Negative) Influenza Type B (PCR) NEGATIVE (Negative) RSV RNA Qual (PCR) NEGATIVE (Negative) SARS-CoV-2 RNA (RT-PCR) NEGATIVE (Negative) 01/15/22 01/15/22 01/15/22 Range/Units 01:03 01:03 01:12 WBC (4.8-10.8) X10*3/uL RBC (4.20-5.50) X10*6/uL Hgb (12.0-16.0) g/dl Hct (37.0-47.0) % MCV (80.0-98.0) fL MCH (27.0-33.0) pg MCHC (31.0-35.0) g/dl RDW (11.0-16.0) % Plt Count (160-400) X10*3/uL MPV (9.4-12.3) fL Immature Gran % (Auto) (0.0-0.4) % Neut % (Auto) (45-73) % Lymph % (Auto) (20-40) % Tal[place]ferro % (Auto) (2-11) % Eos % (Auto) (0-4) % Baso % (Auto) (0-2) % Lymph # (Auto) (1.2-4.9) X10*3/uL [place]ferro # (Auto) (0.1-1.2) X10*3/uL Eos # (Auto) (0.0-0.4) X10*3/uL Baso # (Auto) (0.0-0.2) X10*3/uL Abs Immat Gran (auto) (0.00-0.03) X10*3/uL Absolute Neuts (auto) (2.0-8.3) x10*3/uL Absolute Nucleated RBC (0.0-0.012) X10*3/uL Nucleated RBC % (auto) (0.0-0.2) /100WBC PT (10.0-13.1) SEC INR (0.9-1.1) APTT (26.0-36.4) SEC VBG pH 7.42 (7.32-7.43) VBG pCO2 37 mmHg VBG pO2 185 mmHg VBG HCO3 24 (22-26) mmol/L VBG O2 Saturation 100.0 % VBG Base Excess 0.2 mmol/L Sodium (135-145) mmol/L Potassium (3.3-5.1) mmol/L Chloride (96-108) mmol/L Carbon Dioxide (22-29) mmol/L Anion Gap (12-20) BUN (9-16) mg/dL Creatinine (0.5-1.4) mg/dL Estim Creat Clear Calc Estimated GFR POC Glucose (60-115) mg/dL Random Glucose (60-115) mg/dL Lactic Acid (0.5-2.0) mmol/L Lactic Acid F/U @ 2Hr (0.5-2.0) mmol/L Calcium (8.4-10.2) mg/dL Total Bilirubin (0.0-1.0) mg/dL AST (5-31) U/L ALT (0-31) U/L Alkaline Phosphatase (39-117) U/L Troponin I High Sens 4.2 (<3.5-17.0) ng/L B-Natriuretic Peptide < 10 (<100) pg/mL Total Protein (6.5-8.0) g/dL Albumin (3.5-5.0) g/dL Urine Opiates Screen (Not Detect) Urine Fentanyl Screen (Not Detect) Ur Barbiturates Screen (Not Detect) Ur Phencyclidine Scrn (Not Detect) Ur Amphetamines Screen (Not Detect) U Benzodiazepines Scrn (Not Detect) Urine Cocaine Screen (Not Detect) U Marijuana (THC) Screen (Not Detect) Influenza Type A (PCR) (Negative) Influenza Type B (PCR) (Negative) RSV RNA Qual (PCR) (Negative) SARS-CoV-2 RNA (RT-PCR) (Negative) 01/15/22 01/15/22 01/15/22 Range/Units 04:01 04:57 06:07 WBC (4.8-10.8) X10*3/uL RBC (4.20-5.50) X10*6/uL Hgb (12.0-16.0) g/dl Hct (37.0-47.0) % MCV (80.0-98.0) fL MCH (27.0-33.0) pg MCHC (31.0-35.0) g/dl RDW (11.0-16.0) % Plt Count (160-400) X10*3/uL MPV (9.4-12.3) fL Immature Gran % (Auto) (0.0-0.4) % Neut % (Auto) (45-73) % Lymph % (Auto) (20-40) % [place]ferro % (Auto) (2-11) % Eos % (Auto) (0-4) % Baso % (Auto) (0-2) % Lymph # (Auto) (1.2-4.9) X10*3/uL [place]ferro # (Auto) (0.1-1.2) X10*3/uL Eos # (Auto) (0.0-0.4) X10*3/uL Baso # (Auto) (0.0-0.2) X10*3/uL Abs Immat Gran (auto) (0.00-0.03) X10*3/uL Absolute Neuts (auto) (2.0-8.3) x10*3/uL Absolute Nucleated RBC (0.0-0.012) X10*3/uL Nucleated RBC % (auto) (0.0-0.2) /100WBC PT (10.0-13.1) SEC INR (0.9-1.1) APTT (26.0-36.4) SEC VBG pH (7.32-7.43) VBG pCO2 mmHg VBG pO2 mmHg VBG HCO3 (22-26) mmol/L VBG O2 Saturation % VBG Base Excess mmol/L Sodium 141 (135-145) mmol/L Potassium 5.5 H (3.3-5.1) mmol/L Chloride 101 (96-108) mmol/L Carbon Dioxide 23 (22-29) mmol/L Anion Gap 23 H (12-20) BUN 41 H (9-16) mg/dL Creatinine 1.57 H (0.5-1.4) mg/dL Estim Creat Clear Calc 46.2 Estimated GFR 34 POC Glucose (60-115) mg/dL Random Glucose 305 H (60-115) mg/dL Lactic Acid (0.5-2.0) mmol/L Lactic Acid F/U @ 2Hr 1.5 (0.5-2.0) mmol/L Calcium 8.5 (8.4-10.2) mg/dL Total Bilirubin (0.0-1.0) mg/dL AST (5-31) U/L ALT (0-31) U/L Alkaline Phosphatase (39-117) U/L Troponin I High Sens (<3.5-17.0) ng/L B-Natriuretic Peptide (<100) pg/mL Total Protein (6.5-8.0) g/dL Albumin (3.5-5.0) g/dL Urine Opiates Screen Not Detected (Not Detect) Urine Fentanyl Screen POSITIVE H (Not Detect) Ur Barbiturates Screen Not Detected (Not Detect) Ur Phencyclidine Scrn Not Detected (Not Detect) Ur Amphetamines Screen Not Detected (Not Detect) U Benzodiazepines Scrn Not Detected (Not Detect) Urine Cocaine Screen Not Detected (Not Detect) U Marijuana (THC) Screen POSITIVE H (Not Detect) Influenza Type A (PCR) (Negative) Influenza Type B (PCR) (Negative) RSV RNA Qual (PCR) (Negative) SARS-CoV-2 RNA (RT-PCR) (Negative) 01/15/22 Range/Units 06:11 WBC (4.8-10.8) X10*3/uL RBC (4.20-5.50) X10*6/uL Hgb (12.0-16.0) g/dl Hct (37.0-47.0) % MCV (80.0-98.0) fL MCH (27.0-33.0) pg MCHC (31.0-35.0) g/dl RDW (11.0-16.0) % Plt Count (160-400) X10*3/uL MPV (9.4-12.3) fL Immature Gran % (Auto) (0.0-0.4) % Neut % (Auto) (45-73) % Lymph % (Auto) (20-40) % [place]ferro % (Auto) (2-11) % Eos % (Auto) (0-4) % Baso % (Auto) (0-2) % Lymph # (Auto) (1.2-4.9) X10*3/uL [place]ferro # (Auto) (0.1-1.2) X10*3/uL Eos # (Auto) (0.0-0.4) X10*3/uL Baso # (Auto) (0.0-0.2) X10*3/uL Abs Immat Gran (auto) (0.00-0.03) X10*3/uL Absolute Neuts (auto) (2.0-8.3) x10*3/uL Absolute Nucleated RBC (0.0-0.012) X10*3/uL Nucleated RBC % (auto) (0.0-0.2) /100WBC PT (10.0-13.1) SEC INR (0.9-1.1) APTT (26.0-36.4) SEC VBG pH (7.32-7.43) VBG pCO2 mmHg VBG pO2 mmHg VBG HCO3 (22-26) mmol/L VBG O2 Saturation % VBG Base Excess mmol/L Sodium (135-145) mmol/L Potassium (3.3-5.1) mmol/L Chloride (96-108) mmol/L Carbon Dioxide (22-29) mmol/L Anion Gap (12-20) BUN (9-16) mg/dL Creatinine (0.5-1.4) mg/dL Estim Creat Clear Calc Estimated GFR POC Glucose 280 H (60-115) mg/dL Random Glucose (60-115) mg/dL Lactic Acid (0.5-2.0) mmol/L Lactic Acid F/U @ 2Hr (0.5-2.0) mmol/L Calcium (8.4-10.2) mg/dL Total Bilirubin (0.0-1.0) mg/dL AST (5-31) U/L ALT (0-31) U/L Alkaline Phosphatase (39-117) U/L Troponin I High Sens (<3.5-17.0) ng/L B-Natriuretic Peptide (<100) pg/mL Total Protein (6.5-8.0) g/dL Albumin (3.5-5.0) g/dL Urine Opiates Screen (Not Detect) Urine Fentanyl Screen (Not Detect) Ur Barbiturates Screen (Not Detect) Ur Phencyclidine Scrn (Not Detect) Ur Amphetamines Screen (Not Detect) U Benzodiazepines Scrn (Not Detect) Urine Cocaine Screen (Not Detect) U Marijuana (THC) Screen (Not Detect) Influenza Type A (PCR) (Negative) Influenza Type B (PCR) (Negative) RSV RNA Qual (PCR) (Negative) SARS-CoV-2 RNA (RT-PCR) (Negative) Critical Care Time Critical Care Time Critical Care Time: Yes Total Critical Care Time: 120 Attestation: I have personally provided critical care time. Time includes review of lab data, radiology results, discussion with consultants, and monitoring for potential decompensation. Intervention performed as documented. Discharge Plan Discharge Clinical Impression: Accidental overdose, DANY (acute kidney injury) Patient Disposition: Still a Patient Prescriptions: No Action prazosin 1 mg capsule 1 cap PO BEDTIME cyclobenzaprine 5 mg tablet 5 mg PO Q8H PRN (Reason: pain (scale score 7-10)) 5 Days Qty: 14 0RF naproxen 500 mg tablet 500 mg PO BID PRN (Reason: pain) 10 Days Qty: 20 0RF acetaminophen [Tylenol Extra Strength] 500 mg tablet 500 mg PO Q6H PRN (Reason: fever or pain) Qty: 14 0RF quetiapine [Seroquel] 200 mg Tablet 200 mg PO BEDTIME lorazepam 0.5 mg Tablet 0.5 mg PO DAILY PRN (Reason: Anxiety) metformin 1,000 mg tablet 1 tab PO BID multivitamin Tablet 1 tab PO DAILY pregabalin [Lyrica] 75 mg Capsule 75 mg PO BID Qty: 60 0RF quetiapine 50 mg Tablet 50 mg PO BEDTIME Qty: 30 0RF Latuda 80 mg Tablet 160 mg PO DAILY Qty: 60 0RF cefuroxime axetil 250 mg tablet 250 mg PO Q12H 7 Days Qty: 14 0RF
--- NOTE | 2022-01-15 02:34 | PC.NURSE ---
pt was clean up and reposition ,purewick in place .
[2022-01-15] MEDS: Naloxone HCl 5 MG in Dextrose 5 % 95 ML 20 MG IV (02:38)
[2022-01-15 02:43] LABS: Reflex Lactate? Lactic Acid Added
--- NOTE | 2022-01-15 03:48 | PC.NURSE ---
0400 rounding done ,vs taken patient asleep call michaud within reach .,pt is dry .
[2022-01-15 04:22] LABS: ~Lactic Acid-LAB USE ONLY 1.5 mmol/L (0.5-2.0)
[2022-01-15 05:25] LABS: Amphetamine Screen Urine Not Detected (Not Detect); Barbiturates, Urine Not Detected (Not Detect); Benzodiazepines Screen Urine Not Detected (Not Detect); Cannabinoid Screen Urine POSITIVE (Not Detect); Cocaine Screen Urine Not Detected (Not Detect); Fentanyl, urine POSITIVE (Not Detect); Opiate Screen Urine Not Detected (Not Detect); Phencyclidine Screen Urine Not Detected (Not Detect)
--- NOTE | 2022-01-15 05:37 | PC.NURSE ---
PT Purewick checked. Pt dry. PT given warm blankets and call michaud placed in reach
[2022-01-15] MEDS: Naloxone HCl Nasal 4 MG SPRAY 8 MG NOSTRILALT (06:08)
[2022-01-15 06:16] LABS: Glucose, Whole Blood 280 mg/dL (60-115)
[2022-01-15 06:30] LABS: Anion Gap 23 (12-20); Blood Urea Nitrogen 41 mg/dL (9-16); Calcium 8.5 mg/dL (8.4-10.2); Carbon Dioxide 23 mmol/L (22-29); Chloride 101 mmol/L (96-108); Creatinine Clr Calc Pharmacy 46.2; Estimated Glomerular Filt Rate 34; Glucose Random 305 mg/dL (60-115); Potassium 5.5 mmol/L (3.3-5.1); Sodium 141 mmol/L (135-145)
[2022-01-15] MEDS: Naloxone HCl 5 MG in Dextrose 5 % 95 ML 60 MG IV ×2 (06:38→08:40)
--- NOTE | 2022-01-15 06:45 | PC.NURSE ---
Patient initally arrived to the ED obtunded, NPA in place with BVM in use. Narcan drip started with minimal effect. Patient moaning but not responsive. Aprox 0630 patient would open eyes to loud commands. Patient was able to mumble yes/no to doctor questions. Answers NO to intentional OD.
[2022-01-15 07:18] LABS: Glucose, Whole Blood 329 mg/dL (60-115)
--- NOTE | 2022-01-15 08:27 | PC.NURSE ---
patient clean, linen change patient reposition .
[2022-01-15] MEDS: 0.9 % Sodium Chloride 1,000 ML 999 ML IVCONT (08:35)
--- NOTE | 2022-01-15 08:49 | PC.NURSE ---
Pt opens eyes to verbal stimuli with minimal verbal responses. Pt incontinent stool, changed and repositioned in bed. Purewick in place. IV established in left wrist. Normal saline and Narcan gtt running at this time.
--- NOTE | 2022-01-15 10:20 | PC.NURSE ---
Pt able to respond to questions slowly, turning head to respond appropriately.
--- NOTE | 2022-01-15 10:53 | PM.IMHP ---
History of Present Illness Date of Service: 01/15/22 Chief Complaint: overdose The patient is a 57 yo F with a PMH as outlined below who was brought into the ED via EMS for suspected overdose. The patient is currently very slow to respond and unable to give a meaningful history. Hence, history is obtained from the ED chart. HPI from ED notes: Patient comes to the emergency room via EMS.? According to EMS, the patient's roommate found her unresponsive, with agonal breathing, unknown down time.? EMS reports that the roommate said that the patient uses fentanyl as her drug of choice.? EMS gave her 5 mg of Narcan via an IO which was placed via EMS of the tibia.? Patient initially woke up but return to sleep immediately and was very difficult to arouse, patient need to be ventilated via bag-valve mask.? On arrival to the emergency room, patient still unresponsive In the ED, the patient required narcan drip and now has become more responsive, although still confused. She is on 3L of oxygen. SHe has DANY and remains enceopahlopathic and hence she will be admitted for further care. Of note -- the patient has had similar presentation to the hospital several times in 2021. Review of Systems Review of Systems: unable to determine due to mental status changes [facility] Medical History Asthma Bipolar disorder Chronic pain Diabetes Hypertension IBS (irritable bowel syndrome) Peripheral neuropathy Polysubstance abuse Seizure Pertinent family history: unable to assess due to mental status changes Surgical History History of appendectomy Social History Household Members: Other Household Members Other:: roommate Housing: Apartment Do you presently have visiting nurse or other home services: No Unable to assess alcohol history related to: Unable to respond Alcohol intake: former Patient Tobacco Use Status: Current everyday Tobacco user Substance Use Type: Painkillers Advance Directives: Yes Advance Directives on File: Yes Advance Directives Date on File: 09/03/21 service: No Current occupational status: disabled Meds Allergies Allergy/AdvReac Type Severity Reaction Status Date / Time morphine [MORPHINE] Allergy Unknown RASH, vomit Verified 01/15/22 00:48 prednisone Allergy Unknown hives Verified 01/15/22 00:48 Sulfa (Sulfonamide Allergy Unknown UNKNOWN, Verified 01/15/22 00:48 Antibiotics) hives [SULFA (SULFONAMIDE ANTIBIOTICS)] Active Medications: Current Medications Acetaminophen (Acetaminophen 325 Mg Tablet) 650 mg PO Q6H PRN PRN Reason: Pain, Mild (Pain Scale 1-3) Enoxaparin Sodium (Enoxaparin Sodium 40 Mg/0.4 Ml Syringe) 40 mg SUBCUT Q24H REPLACED BY [facility] Naloxone HCl 5 mg/ Dextrose 100 mls @ 60 mls/hr IV .Q1H40M REPLACED BY [facility] Last Infusion: 01/15/22 10:07 Dose: 0 mg/hr, 0 mls/hr Ondansetron HCl (Ondansetron Hcl 4 Mg/2 Ml Vial) 4 mg IVPUSH Q8H PRN PRN Reason: Nausea and Vomiting Sodium Chloride (0.9 % Sodium Chloride Flush 3 Ml Syringe) 3 ml IVFLUSH QSHIFT REPLACED BY [facility] Home Medications Medication Instructions Recorded Confirmed Last Taken Type lorazepam 0.5 mg tablet 0.5 mg PO DAILY PRN Anxiety 07/15/21 09/07/21 Unknown History quetiapine 200 mg tablet (Seroquel) 200 mg PO BEDTIME 07/15/21 09/07/21 09/01/21 History prazosin 1 mg capsule 3 mg PO BEDTIME 08/02/21 09/07/21 09/02/21 History metformin 1,000 mg tablet 1 tab PO BID 09/03/21 09/07/21 09/03/21 History multivitamin 1 tab PO DAILY 09/03/21 09/07/21 09/03/21 History atorvastatin 20 mg tablet 1 tab PO DAILY 01/15/22 Unknown History clonazepam 0.5 mg tablet 0.5 mg PO 01/15/22 Unknown History duloxetine 30 mg capsule,delayed 1 cap PO BID 01/15/22 Unknown History release lisinopril 30 mg tablet 1 tab PO DAILY 01/15/22 Unknown History lurasidone 120 mg tablet (Latuda) 1 tab PO DAILY 01/15/22 Unknown History sitagliptin 100 mg tablet (Januvia) 1 tab PO DAILY 01/15/22 Unknown History Physical Exam Vital Signs and Narrative: Vital Signs: Last Vital Signs Temp 98.8 F 01/15/22 08:48 Pulse 94 01/15/22 10:19 Resp 14 01/15/22 10:19 BP 187/80 H 01/15/22 10:19 Pulse Ox 98 01/15/22 10:19 O2 Del Method 01/15/22 10:19 O2 Flow Rate 3 01/15/22 10:19 BMI result Body Mass Index 35.0 Const: Other: Constitutional - Awake and Alert, answering simple questions with yes / no; slow to respond and takes multiple prompts Eyes - PERRLA, EOMI Cardiovascular - S1S2, RRR, No edema Respiratory - normal respiratory effort; dim sounds globally Gastrointestinal - NT / ND; +BS; No rebound or guarding - No CVA tenderness Extremities - no calf tenderness bilaterally, no swelling Musculoskeletal - Normal inspection, normal ROM Skin - Warm/Dry Neurological - moving all 4 limbs spontaneously, speech slow but comprehensible; unable to fully obey commands but does intermittently Psychological - Appropriate affect Results Labs CBC and Chem 7: 01/15/22 00:39 01/15/22 06:07 Labs: Laboratory Results - last 24 hr 01/15/22 01/15/22 01/15/22 00:37 00:39 00:39 MCV 85.2 MCH 26.8 L MCHC 31.4 RDW 15.2 Plt Count 192 MPV 11.7 Immature Gran % (Auto) 0.7 H Neut % (Auto) 72.7 Lymph % (Auto) 21.7 [place] % (Auto) 4.3 Eos % (Auto) 0.3 Baso % (Auto) 0.3 Lymph # (Auto) 2.6 [place] # (Auto) 0.5 Eos # (Auto) 0.0 Baso # (Auto) 0.0 Abs Immat Gran (auto) 0.09 H Absolute Neuts (auto) 8.7 H Absolute Nucleated RBC 0.000 Nucleated RBC % (auto) 0.0 PT 11.1 INR 1.0 APTT 29.4 VBG pH VBG pCO2 VBG pO2 VBG HCO3 VBG O2 Saturation VBG Base Excess Anion Gap Estim Creat Clear Calc Estimated GFR POC Glucose 386 H* Random Glucose Lactic Acid Lactic Acid F/U @ 2Hr Calcium Total Bilirubin AST ALT Alkaline Phosphatase Troponin I High Sens B-Natriuretic Peptide Total Protein Albumin Urine Opiates Screen Urine Fentanyl Screen Ur Barbiturates Screen Ur Phencyclidine Scrn Ur Amphetamines Screen U Benzodiazepines Scrn Urine Cocaine Screen U Marijuana (THC) Screen Influenza Type A (PCR) Influenza Type B (PCR) RSV RNA Qual (PCR) SARS-CoV-2 RNA (RT-PCR) 01/15/22 01/15/22 01/15/22 00:39 00:39 00:59 MCV MCH MCHC RDW Plt Count MPV Immature Gran % (Auto) Neut % (Auto) Lymph % (Auto) [place] % (Auto) Eos % (Auto) Baso % (Auto) Lymph # (Auto) [place] # (Auto) Eos # (Auto) Baso # (Auto) Abs Immat Gran (auto) Absolute Neuts (auto) Absolute Nucleated RBC Nucleated RBC % (auto) PT INR APTT VBG pH VBG pCO2 VBG pO2 VBG HCO3 VBG O2 Saturation VBG Base Excess Anion Gap 24 H Estim Creat Clear Calc 37.6 Estimated GFR 27 POC Glucose Random Glucose 441 H* Lactic Acid 5.8 H* Lactic Acid F/U @ 2Hr Calcium 8.6 Total Bilirubin 0.4 AST 25 D ALT 21 Alkaline Phosphatase 103 D Troponin I High Sens B-Natriuretic Peptide Total Protein 7.1 Albumin 4.0 Urine Opiates Screen Urine Fentanyl Screen Ur Barbiturates Screen Ur Phencyclidine Scrn Ur Amphetamines Screen U Benzodiazepines Scrn Urine Cocaine Screen U Marijuana (THC) Screen Influenza Type A (PCR) NEGATIVE Influenza Type B (PCR) NEGATIVE RSV RNA Qual (PCR) NEGATIVE SARS-CoV-2 RNA (RT-PCR) NEGATIVE 01/15/22 01/15/22 01/15/22 01:03 01:03 01:12 MCV MCH MCHC RDW Plt Count MPV Immature Gran % (Auto) Neut % (Auto) Lymph % (Auto) [place] % (Auto) Eos % (Auto) Baso % (Auto) Lymph # (Auto) [place] # (Auto) Eos # (Auto) Baso # (Auto) Abs Immat Gran (auto) Absolute Neuts (auto) Absolute Nucleated RBC Nucleated RBC % (auto) PT INR APTT VBG pH 7.42 VBG pCO2 37 VBG pO2 185 VBG HCO3 24 VBG O2 Saturation 100.0 VBG Base Excess 0.2 Anion Gap Estim Creat Clear Calc Estimated GFR POC Glucose Random Glucose Lactic Acid Lactic Acid F/U @ 2Hr Calcium Total Bilirubin AST ALT Alkaline Phosphatase Troponin I High Sens 4.2 B-Natriuretic Peptide < 10 Total Protein Albumin Urine Opiates Screen Urine Fentanyl Screen Ur Barbiturates Screen Ur Phencyclidine Scrn Ur Amphetamines Screen U Benzodiazepines Scrn Urine Cocaine Screen U Marijuana (THC) Screen Influenza Type A (PCR) Influenza Type B (PCR) RSV RNA Qual (PCR) SARS-CoV-2 RNA (RT-PCR) 01/15/22 01/15/22 01/15/22 04:01 04:57 06:07 MCV MCH MCHC RDW Plt Count MPV Immature Gran % (Auto) Neut % (Auto) Lymph % (Auto) [place] % (Auto) Eos % (Auto) Baso % (Auto) Lymph # (Auto) [place] # (Auto) Eos # (Auto) Baso # (Auto) Abs Immat Gran (auto) Absolute Neuts (auto) Absolute Nucleated RBC Nucleated RBC % (auto) PT INR APTT VBG pH VBG pCO2 VBG pO2 VBG HCO3 VBG O2 Saturation VBG Base Excess Anion Gap 23 H Estim Creat Clear Calc 46.2 Estimated GFR 34 POC Glucose Random Glucose 305 H Lactic Acid Lactic Acid F/U @ 2Hr 1.5 Calcium 8.5 Total Bilirubin AST ALT Alkaline Phosphatase Troponin I High Sens B-Natriuretic Peptide Total Protein Albumin Urine Opiates Screen Not Detected Urine Fentanyl Screen POSITIVE H Ur Barbiturates Screen Not Detected Ur Phencyclidine Scrn Not Detected Ur Amphetamines Screen Not Detected U Benzodiazepines Scrn Not Detected Urine Cocaine Screen Not Detected U Marijuana (THC) Screen POSITIVE H Influenza Type A (PCR) Influenza Type B (PCR) RSV RNA Qual (PCR) SARS-CoV-2 RNA (RT-PCR) 01/15/22 01/15/22 06:11 07:13 MCV MCH MCHC RDW Plt Count MPV Immature Gran % (Auto) Neut % (Auto) Lymph % (Auto) [place] % (Auto) Eos % (Auto) Baso % (Auto) Lymph # (Auto) [place] # (Auto) Eos # (Auto) Baso # (Auto) Abs Immat Gran (auto) Absolute Neuts (auto) Absolute Nucleated RBC Nucleated RBC % (auto) PT INR APTT VBG pH VBG pCO2 VBG pO2 VBG HCO3 VBG O2 Saturation VBG Base Excess Anion Gap Estim Creat Clear Calc Estimated GFR POC Glucose 280 H 329 H Random Glucose Lactic Acid Lactic Acid F/U @ 2Hr Calcium Total Bilirubin AST ALT Alkaline Phosphatase Troponin I High Sens B-Natriuretic Peptide Total Protein Albumin Urine Opiates Screen Urine Fentanyl Screen Ur Barbiturates Screen Ur Phencyclidine Scrn Ur Amphetamines Screen U Benzodiazepines Scrn Urine Cocaine Screen U Marijuana (THC) Screen Influenza Type A (PCR) Influenza Type B (PCR) RSV RNA Qual (PCR) SARS-CoV-2 RNA (RT-PCR) Imaging Radiologist's Impressions: Impressions Head CT 01/15/22 06:35 IMPRESSION: Suboptimal assessment in some regions due to motion artifact. No acute intracranial pathology identified. Assessment and Plan (1) DANY (acute kidney injury): Status: Acute Plan 57 yo F with multiple medical issues and multiple prior similar presentations who again arrives with suspected overdose (pt states accidental, not on purpose) with opiates. 1. Acute toxic/metabolic encepahlopathy due to suspected accidental opiate overdose slowly improving but suspect not at baseline s/p narcan drip hold ALL sedative meds previous admissions show that it took her 2-3 days to improve formal speech and swallow eval 2. DANY with hyperkalemia likely pre-renal and improved with IVF start maint. fluids trend BMP repeat K later today 3. DM NPO for now until speech then sliding scale 4. bipolar d/o continue baseline meds once pt claeared for speech may need psych input if not improved Full COde DVT pptx -- lovenox Due to her encephalopathy and DANY, pt will need an inpatient hospitalization which is likely to span at least 2 midnights for treatment and monitoring. She has typically required 2-3 days of hospitalization in the past with these episodes and hence, anticipate the same during this admit. Quality Stroke Does the patient have a stroke diagnosis?: No VTE Prior VTE?: No VTE Risk Level:: Medical - moderate - high VTE Device Contraindication: Treatment Not Indicated VTE Drug Contraindication: N/A - Med Ordered
--- NOTE | 2022-01-15 10:53 | PHA.MEDREC ---
Pharmacy Consult ? Medication Reconciliation Pharmacy has completed the medication reconciliation. Obtained as much information as possible from patient but she is still very sedated and unable to answer with much more than yes or no. States she takes medication given to her by pharmacy in packaged unit dose blisters so confirmed med list with most recent claim history from pharmacy.
--- NOTE | 2022-01-15 14:55 | MHC.SLORD ---
Addendum entered and electronically signed by Vale Shell MA, CCC-FILTROSE CRUSHER 01/15/22 16:56: D.S. Original Note: Speech Language Pathology Order Status: FILTROSE CRUSHER attempted to see pt 2X for bedside swallow evaluation. Per RN, pt is not appropriate for swallow evaluation at this time. RN to send [place] later in day if pt becomes appropriate. FILTROSE CRUSHER introduced herself to pt, pt presented lethargic with slow and limited speech. FILTROSE CRUSHER to evaluate when appropriate.
[2022-01-15] MEDS: Enoxaparin Sodium 40 MG/0.4 ML SYRINGE SUBCUT (15:21)
[2022-01-15] MEDS: 0.9 % Sodium Chloride Flush 3 ML SYRINGE IVFLUSH ×2 (15:23→20:46)
--- NOTE | 2022-01-15 16:52 | MHC.RECOVRN ---
This principal technical writer attempted SUDE, pt unable to maintain conversation, will attempt tomorrow.
[2022-01-15 17:22] LABS: Potassium 4.2 mmol/L (3.3-5.1)
--- NOTE | 2022-01-15 18:21 | PC.NURSE ---
[id number] developer pt belongings were brought up to [facility]
[2022-01-15] MEDS: hydrALAZINE HCl 20 MG/ML VIAL 5 MG IVPUSH (19:36)
[2022-01-16] VITALS (8 sets, daily range): BP systolic 138–202; BP diastolic 77–102; PULSE 73–98; RESP 18–20; TEMP 36.5–38.1; O2SAT 94–98
[2022-01-16] MEDS: Labetalol HCL 100 MG/20 ML VIAL 20 MG IVPUSH (04:03)
[2022-01-16 07:33] LABS: Hematocrit 39.5 % (37.0-47.0); Hemoglobin 12.5 g/dl (12.0-16.0); Mean Corpuscular HGB Conc 31.6 g/dl (31.0-35.0); Mean Corpuscular Hemoglobin 26.7 pg (27.0-33.0); Mean Corpuscular Volume 84.2 fL (80.0-98.0); Mean Platelet Volume 11.7 fL (9.4-12.3); Platelet Count 319 X10*3/uL (160-400); Red Blood Count 4.69 X10*6/uL (4.20-5.50); White Blood Count 18.4 X10*3/uL (4.8-10.8)
--- NOTE | 2022-01-16 10:05 | HO.PM.IMPN ---
Subjective Subjective Date of Service: 01/16/22 Interval History: seen and examined this AM remains slow to respond, but slightly improved compared to yesterday remains disoriented but does reply that she does not know the answers to my orienting questions Review of Systems unreliable due to mental status Physical Exam Vital Signs: Vital Signs: Last Vital Signs Temp 99.5 F 01/16/22 07:59 Pulse 79 01/16/22 07:59 Resp 18 01/16/22 07:59 BP 170/82 H 01/16/22 07:59 Pulse Ox 94 01/16/22 07:59 O2 Del Method 01/16/22 07:59 O2 Flow Rate 3 01/15/22 12:36 BMI result Body Mass Index 35.0 Const: Other: General - no acute distress, appears comfortable, staring blankly into space but does respond very slowly Cardiovascular - regular rate and rhythm, S1-S2 Lungs - normal respiratory effort, clear to auscultation bilaterally, no wheezing Abdomen - soft, nontender, no rebound or guarding Extremities - no edema bilaterally Neuro - awake and alert, moving all 4 limbs; pupils equal size and reactive; speech comprehensible but very slow; difficultly following commands Objective Data Active Medications Acetaminophen (Acetaminophen 325 Mg Tablet) 650 mg PO Q6H PRN PRN Reason: Pain, Mild (Pain Scale 1-3) Atorvastatin Calcium (Atorvastatin Calcium 20 Mg Tablet) 20 mg PO DAILY [facility] Enoxaparin Sodium (Enoxaparin Sodium 40 Mg/0.4 Ml Syringe) 40 mg SUBCUT Q24H [facility] Last Admin: 01/15/22 15:21 Dose: 40 mg Documented By: TRINY Lisinopril (Lisinopril 10 Mg Tablet) 30 mg PO DAILY [facility]; Protocol Ondansetron HCl (Ondansetron Hcl 4 Mg/2 Ml Vial) 4 mg IVPUSH Q8H PRN PRN Reason: Nausea and Vomiting Prazosin HCl (Prazosin Hcl 1 Mg Capsule) 3 mg PO BEDTIME [facility]; Protocol Sodium Chloride (0.9 % Sodium Chloride Flush 3 Ml Syringe) 3 ml IVFLUSH QSHIFT [facility] Last Admin: 01/15/22 20:46 Dose: 3 ml Documented By: PATRICIA Labs CBC & Chem 7: 01/16/22 06:30 01/15/22 16:52 Labs: Laboratory Results - last 24 hr 01/16/22 06:30 MCV 84.2 MCH 26.7 L MCHC 31.6 RDW 15.0 Plt Count 319 D MPV 11.7 Absolute Nucleated RBC 0.000 Nucleated RBC % (auto) 0.0 Assessment and Plan (1) Accidental overdose: Status: Acute (2) Acute alteration in mental status: Status: Acute Plan 57 yo F with multiple medical issues and multiple prior similar presentations who again arrives with suspected overdose (pt states accidental, not on purpose) with opiates. 1. Acute toxic/metabolic encephalopathy due to suspected accidental opiate overdose slowly improving but suspect not at baseline; given pt had to be vented via bag mask, concern over anoxic injury -- will ask neurology for input s/p narcan drip continue holding sedative meds seen by speech this AM -- started on mechanical soft diet additionally -- pt with increasing leukocytosis; CXR yesterday was clear, will check UA and blood cx; chest cxr as well -- start antibiotics of any of those are positive for infection obtain collateral info re: her baseline status 2. DANY with hyperkalemia K normalized BMP pending this AM 3. DM hold oral meds, use sliding scale diabetic diet 4. bipolar d/o continue baseline meds once pt claeared for speech may need psych input if not improved 5. Uncontrolled HTN on norvasc at home, started this AM may need to uptitrate vs add additional meds Full COde DVT pptx -- lovenox Pt requires continued hospitailzation as she remains encephalopathic beyond her baseline. Work up for this is in process and she is not ready for discharge. Quality Stroke Does the patient have a stroke diagnosis?: No VTE Prior VTE?: No VTE Risk Level:: Medical - moderate - high VTE Device Contraindication: Treatment Not Indicated VTE Drug Contraindication: N/A - Med Ordered
[2022-01-16] MEDS: lisinopriL 10 MG TABLET 30 MG PO (10:06)
[2022-01-16] MEDS: Enoxaparin Sodium 40 MG/0.4 ML SYRINGE SUBCUT (10:06)
[2022-01-16] MEDS: Atorvastatin Calcium 20 MG TABLET PO (10:07)
[2022-01-16] MEDS: 0.9 % Sodium Chloride Flush 3 ML SYRINGE IVFLUSH ×3 (10:07→21:04)
--- NOTE | 2022-01-16 11:02 | MHC.SL.SWA ---
Speech Pathologist Impression: Mild to moderate oral phase dysphagia Risk of Aspiration Due to: Reduced Cognition Dysphasia Diet Status: Grd/Mech Altered (NDD2), Thin Liquids Liquid Consistency and Strategies for Safe Swallow: Liquid Intake Recommendation: Thin Liquid Intake Strategies: Small Sips Solid Food Consistency: Dietary Recommendations: Grnd/Mech Altered (NDD2) Additional Modifications to Solid Foods: Pt will need supervision during all meals. Monitor for impulsive chain sips/gulping if drinking by straw, Pt may need assistance with administering food, but encourage independence. Monitor for pocketing food, make sure patient has swallowed before given more food. Oral Medication Intake: Crushed with Puree Please contact the pharmacy regarding appropriate crushable or liquid drug formulations that are available whenever modified delivery is recommended. Compensatory Strategies and Precautions to be Taken for Safe Swallow: Sitting Upright (90 deg) Liquids from Cup Liquids from Straw Small Bites and Sips Alternate Liquids/Solids Rate of Ingestion Change Oral Check Avoid Specific Foods Supervision While Eating and Drinking for Safe Swallow: Total Supervision (1:1) Foods to Avoid: Mixed consistencies (e.g. cereal and milk, thin soups with pieces of veg/meat). Swallowing Recommended Treatments: Compens. Strategy Educat. Recommendation for Speech: Inpatient Speech Therapy Comment: Pt presents with a mild to moderate oral phase dysphagia, characterized by slow, disorganized tongue movement, poor dentition, difficulty with chewing and swallowing harder textures. Recommend START diet of Ground/Mechanical Altered with THIN liquids, pills crushed in puree. Patient will initially need full supervision and some assistance with meals, with monitor that patient is swallowing/not pocketing food before introducing more food to mouth. Patient can drink from straw, but may be impulsive and needs monitoring for this too. DERMATOLOGY TEACHER will continue to follow, re-assess swallow as needed, advance diet if warranted. MD, Barber Apprentice notified of recommendation by secure text, Nursing advised in person. Frequency/Duration: Date Range for Service Req: Timeline to reassess: Silver Spray Worker Clinican/Clinical Fellow: No Supervisory Statement: I have reviewed and agree with the student/clinical fellow's documentation: N/A Speech Language Pathologist: Bri Stubbs M.A., [facility]-DERMATOLOGY TEACHER
[2022-01-16 11:23] LABS: Anion Gap 21 (12-20); Blood Urea Nitrogen 25 mg/dL (9-16); Calcium 9.3 mg/dL (8.4-10.2); Carbon Dioxide 26 mmol/L (22-29); Chloride 100 mmol/L (96-108); Estimated Glomerular Filt Rate 48; Glucose Random 317 mg/dL (60-115); Potassium 4.4 mmol/L (3.3-5.1); Sodium 143 mmol/L (135-145)
[2022-01-16] MEDS: Acetaminophen 325 MG TABLET 650 MG PO (11:31)
--- NOTE | 2022-01-16 12:08 | MHC.CM.PN ---
per pt lives with s/o nadeen they had no servceis ,covid vax x 2 care team to see pt dc plan home
[2022-01-16 12:34] LABS: Glucose, Whole Blood 371 mg/dL (60-115)
[2022-01-16 12:41] LABS: Appearance Urine Cloudy; Color Urine Yellow; Glucose Urine UA >=1000 mg/dL (Negative); Leukocyte Esterase Urine Trace (Negative); Nitrite Urine Negative (Negative); PH 6.5 (5.0-9.0); Specific Gravity - Urine >= 1.030 (1.005-1.025); UMIC TRIGGER UACC YES; Urine Blood Moderate (2+) (Negative); Urine Ketones 40 mg/dL (Negative); Urine Protein >=1000 (4+) mg/dL (Neg-Trace)
[2022-01-16] MEDS: Insulin Lispro 100 UNIT/ML 3 ML VIAL SUBCUT ×3 (12:51→21:03)
[2022-01-16] MEDS: Lactated Ringers 1,000 ML 100 ML IVCONT ×2 (13:28→22:13)
[2022-01-16] MEDS: cefTRIAXone sodium 1 GM in 0.9 % Sodium Chloride 50 ML IV (13:32)
[2022-01-16 13:44] LABS: Bacteria Urine 1+ (None Seen); Hyaline Casts Urine 0-2 /LPF (0-2); Squamous Epithelial Cell Urine 0-2 /HPF (0-2); UACC Culture Trigger YES; WBC Urine >50 /HPF (0-5)
--- NOTE | 2022-01-16 14:15 | MHC.RECOVRN ---
Attempted to meet with pt this moring to discuss substance use. Pt having difficulty with communication. Pt is unable to name which hospital we are in and is also is unable to recall . When asked if pt feels sick, pt states No. Pt only able answer yes or no questions. When asked open ended questions, pt simply stares. Pt appears to be uncomfortable, restless, diaphoretic. Pt denies upset stomach. Denies being on methadone. When asked if pt needed anything, pt states No. Discussed with RN as well as Anjali Long APRN.
--- NOTE | 2022-01-16 14:19 | HO.ADDICT_ITS ---
History of Present Illness Date of Service: 01/16/2022 Chief Complaint: Overdose Reason for Consult: opioid overdose HPI Narrative: Patient currently medically admitted following opioid overdose. Unable to obtain any history from patient as she appears to be having great difficulty speaking. She did answer yes to question if she felt sick and if she wanted methadone, but after much effort. She is appears physically uncomfortable, restless in the bed, awake, alert, but unable to respond to any questions about orientation. Chart reviewed, several admissions related to opioid use. Concern for acute withdrawal. Past Psychiatric History: Bipolar disorder. Prior inpatient episodes. [facility] consults most recent 09/04/2021. No history of suicide attempts. Review of Systems Review of Systems unobtainable Diagnostics Vital Signs (24Hr): Vital Signs - 24 hr 01/15/22 15:26 01/15/22 17:48 01/15/22 19:24 Temperature 98.3 F 97.7 F 98 F Pulse Rate 89 82 90 Respiratory Rate 14 19 19 Blood Pressure 173/83 H 228/98 H 212/88 H Pulse Oximetry 96 98 95 Oxygen Delivery Method Room Air Room Air Room Air 01/16/22 00:00 01/16/22 03:20 01/16/22 07:59 Temperature 99.3 F 99.2 F 99.5 F Pulse Rate 88 92 79 Respiratory Rate 20 20 18 Blood Pressure 199/88 H 202/102 H 170/82 H Pulse Oximetry 96 98 94 Oxygen Delivery Method Room Air Room Air Room Air 01/16/22 08:15 01/16/22 12:00 Temperature 99.8 F 100.6 F H Pulse Rate 84 Respiratory Rate 20 Blood Pressure 170/77 H Pulse Oximetry 96 Oxygen Delivery Method Room Air BMI result Body Mass Index 35.0 Labs Results: 01/16/22 06:30 01/16/22 06:30 Labs: Laboratory Results - last 48 hr 01/15/22 01/15/22 01/15/22 00:37 00:39 00:39 WBC 12.0 H RBC 4.26 Hgb 11.4 L Hct 36.3 L MCV 85.2 MCH 26.8 L MCHC 31.4 RDW 15.2 Plt Count 192 MPV 11.7 Immature Gran % (Auto) 0.7 H Neut % (Auto) 72.7 Lymph % (Auto) 21.7 [place] % (Auto) 4.3 Eos % (Auto) 0.3 Baso % (Auto) 0.3 Lymph # (Auto) 2.6 [place] # (Auto) 0.5 Eos # (Auto) 0.0 Baso # (Auto) 0.0 Abs Immat Gran (auto) 0.09 H Absolute Neuts (auto) 8.7 H Absolute Nucleated RBC 0.000 Nucleated RBC % (auto) 0.0 PT 11.1 INR 1.0 APTT 29.4 VBG pH VBG pCO2 VBG pO2 VBG HCO3 VBG O2 Saturation VBG Base Excess Sodium Potassium Chloride Carbon Dioxide Anion Gap BUN Creatinine Estim Creat Clear Calc Estimated GFR POC Glucose 386 H* Random Glucose Lactic Acid Lactic Acid F/U @ 2Hr Calcium Total Bilirubin AST ALT Alkaline Phosphatase Troponin I High Sens B-Natriuretic Peptide Total Protein Albumin Urine Color Urine Appearance Urine pH Ur Specific [place] Urine Protein Urine Glucose (UA) Urine Ketones Urine Blood Urine Nitrite Ur Leukocyte Esterase Urine RBC Urine WBC Ur Squamous Epith Cells Urine Bacteria Hyaline Casts Urine Opiates Screen Urine Fentanyl Screen Ur Barbiturates Screen Ur Phencyclidine Scrn Ur Amphetamines Screen U Benzodiazepines Scrn Urine Cocaine Screen U Marijuana (THC) Screen Influenza Type A (PCR) Influenza Type B (PCR) RSV RNA Qual (PCR) SARS-CoV-2 RNA (RT-PCR) 01/15/22 01/15/22 01/15/22 00:39 00:39 00:59 WBC RBC Hgb Hct MCV MCH MCHC RDW Plt Count MPV Immature Gran % (Auto) Neut % (Auto) Lymph % (Auto) [place] % (Auto) Eos % (Auto) Baso % (Auto) Lymph # (Auto) [place] # (Auto) Eos # (Auto) Baso # (Auto) Abs Immat Gran (auto) Absolute Neuts (auto) Absolute Nucleated RBC Nucleated RBC % (auto) PT INR APTT VBG pH VBG pCO2 VBG pO2 VBG HCO3 VBG O2 Saturation VBG Base Excess Sodium 138 Potassium 4.8 Chloride 100 Carbon Dioxide 19 L Anion Gap 24 H BUN 43 H D Creatinine 1.93 H Estim Creat Clear Calc 37.6 Estimated GFR 27 POC Glucose Random Glucose 441 H* Lactic Acid 5.8 H* Lactic Acid F/U @ 2Hr Calcium 8.6 Total Bilirubin 0.4 AST 25 D ALT 21 Alkaline Phosphatase 103 D Troponin I High Sens B-Natriuretic Peptide Total Protein 7.1 Albumin 4.0 Urine Color Urine Appearance Urine pH Ur Specific [place] Urine Protein Urine Glucose (UA) Urine Ketones Urine Blood Urine Nitrite Ur Leukocyte Esterase Urine RBC Urine WBC Ur Squamous Epith Cells Urine Bacteria Hyaline Casts Urine Opiates Screen Urine Fentanyl Screen Ur Barbiturates Screen Ur Phencyclidine Scrn Ur Amphetamines Screen U Benzodiazepines Scrn Urine Cocaine Screen U Marijuana (THC) Screen Influenza Type A (PCR) NEGATIVE Influenza Type B (PCR) NEGATIVE RSV RNA Qual (PCR) NEGATIVE SARS-CoV-2 RNA (RT-PCR) NEGATIVE 01/15/22 01/15/22 01/15/22 01:03 01:03 01:12 WBC RBC Hgb Hct MCV MCH MCHC RDW Plt Count MPV Immature Gran % (Auto) Neut % (Auto) Lymph % (Auto) [place] % (Auto) Eos % (Auto) Baso % (Auto) Lymph # (Auto) [place] # (Auto) Eos # (Auto) Baso # (Auto) Abs Immat Gran (auto) Absolute Neuts (auto) Absolute Nucleated RBC Nucleated RBC % (auto) PT INR APTT VBG pH 7.42 VBG pCO2 37 VBG pO2 185 VBG HCO3 24 VBG O2 Saturation 100.0 VBG Base Excess 0.2 Sodium Potassium Chloride Carbon Dioxide Anion Gap BUN Creatinine Estim Creat Clear Calc Estimated GFR POC Glucose Random Glucose Lactic Acid Lactic Acid F/U @ 2Hr Calcium Total Bilirubin AST ALT Alkaline Phosphatase Troponin I High Sens 4.2 B-Natriuretic Peptide < 10 Total Protein Albumin Urine Color Urine Appearance Urine pH Ur Specific [place] Urine Protein Urine Glucose (UA) Urine Ketones Urine Blood Urine Nitrite Ur Leukocyte Esterase Urine RBC Urine WBC Ur Squamous Epith Cells Urine Bacteria Hyaline Casts Urine Opiates Screen Urine Fentanyl Screen Ur Barbiturates Screen Ur Phencyclidine Scrn Ur Amphetamines Screen U Benzodiazepines Scrn Urine Cocaine Screen U Marijuana (THC) Screen Influenza Type A (PCR) Influenza Type B (PCR) RSV RNA Qual (PCR) SARS-CoV-2 RNA (RT-PCR) 01/15/22 01/15/22 01/15/22 04:01 04:57 06:07 WBC RBC Hgb Hct MCV MCH MCHC RDW Plt Count MPV Immature Gran % (Auto) Neut % (Auto) Lymph % (Auto) [place] % (Auto) Eos % (Auto) Baso % (Auto) Lymph # (Auto) [place] # (Auto) Eos # (Auto) Baso # (Auto) Abs Immat Gran (auto) Absolute Neuts (auto) Absolute Nucleated RBC Nucleated RBC % (auto) PT INR APTT VBG pH VBG pCO2 VBG pO2 VBG HCO3 VBG O2 Saturation VBG Base Excess Sodium 141 Potassium 5.5 H Chloride 101 Carbon Dioxide 23 Anion Gap 23 H BUN 41 H Creatinine 1.57 H Estim Creat Clear Calc 46.2 Estimated GFR 34 POC Glucose Random Glucose 305 H Lactic Acid Lactic Acid F/U @ 2Hr 1.5 Calcium 8.5 Total Bilirubin AST ALT Alkaline Phosphatase Troponin I High Sens B-Natriuretic Peptide Total Protein Albumin Urine Color Urine Appearance Urine pH Ur Specific [place] Urine Protein Urine Glucose (UA) Urine Ketones Urine Blood Urine Nitrite Ur Leukocyte Esterase Urine RBC Urine WBC Ur Squamous Epith Cells Urine Bacteria Hyaline Casts Urine Opiates Screen Not Detected Urine Fentanyl Screen POSITIVE H Ur Barbiturates Screen Not Detected Ur Phencyclidine Scrn Not Detected Ur Amphetamines Screen Not Detected U Benzodiazepines Scrn Not Detected Urine Cocaine Screen Not Detected U Marijuana (THC) Screen POSITIVE H Influenza Type A (PCR) Influenza Type B (PCR) RSV RNA Qual (PCR) SARS-CoV-2 RNA (RT-PCR) 01/15/22 01/15/22 01/15/22 06:11 07:13 16:52 WBC RBC Hgb Hct MCV MCH MCHC RDW Plt Count MPV Immature Gran % (Auto) Neut % (Auto) Lymph % (Auto) [place] % (Auto) Eos % (Auto) Baso % (Auto) Lymph # (Auto) [place] # (Auto) Eos # (Auto) Baso # (Auto) Abs Immat Gran (auto) Absolute Neuts (auto) Absolute Nucleated RBC Nucleated RBC % (auto) PT INR APTT VBG pH VBG pCO2 VBG pO2 VBG HCO3 VBG O2 Saturation VBG Base Excess Sodium Potassium 4.2 D Chloride Carbon Dioxide Anion Gap BUN Creatinine Estim Creat Clear Calc Estimated GFR POC Glucose 280 H 329 H Random Glucose Lactic Acid Lactic Acid F/U @ 2Hr Calcium Total Bilirubin AST ALT Alkaline Phosphatase Troponin I High Sens B-Natriuretic Peptide Total Protein Albumin Urine Color Urine Appearance Urine pH Ur Specific [place] Urine Protein Urine Glucose (UA) Urine Ketones Urine Blood Urine Nitrite Ur Leukocyte Esterase Urine RBC Urine WBC Ur Squamous Epith Cells Urine Bacteria Hyaline Casts Urine Opiates Screen Urine Fentanyl Screen Ur Barbiturates Screen Ur Phencyclidine Scrn Ur Amphetamines Screen U Benzodiazepines Scrn Urine Cocaine Screen U Marijuana (THC) Screen Influenza Type A (PCR) Influenza Type B (PCR) RSV RNA Qual (PCR) SARS-CoV-2 RNA (RT-PCR) 01/16/22 01/16/22 01/16/22 06:30 06:30 11:30 WBC 18.4 H RBC 4.69 Hgb 12.5 Hct 39.5 MCV 84.2 MCH 26.7 L MCHC 31.6 RDW 15.0 Plt Count 319 D MPV 11.7 Immature Gran % (Auto) Neut % (Auto) Lymph % (Auto) [place] % (Auto) Eos % (Auto) Baso % (Auto) Lymph # (Auto) [place] # (Auto) Eos # (Auto) Baso # (Auto) Abs Immat Gran (auto) Absolute Neuts (auto) Absolute Nucleated RBC 0.000 Nucleated RBC % (auto) 0.0 PT INR APTT VBG pH VBG pCO2 VBG pO2 VBG HCO3 VBG O2 Saturation VBG Base Excess Sodium 143 Potassium 4.4 Chloride 100 Carbon Dioxide 26 Anion Gap 21 H BUN 25 H Creatinine 1.17 Estim Creat Clear Calc 62.0 Estimated GFR 48 POC Glucose Random Glucose 317 H Lactic Acid Lactic Acid F/U @ 2Hr Calcium 9.3 D Total Bilirubin AST ALT Alkaline Phosphatase Troponin I High Sens B-Natriuretic Peptide Total Protein Albumin Urine Color Yellow Urine Appearance Cloudy Urine pH 6.5 Ur Specific [place] >= 1.030 H Urine Protein >=1000 (4+) H Urine Glucose (UA) >=1000 H Urine Ketones 40 Urine Blood Moderate (2+) H Urine Nitrite Negative Ur Leukocyte Esterase Trace H Urine RBC 6-10 H Urine WBC >50 H Ur Squamous Epith Cells 0-2 Urine Bacteria 1+ Hyaline Casts 0-2 Urine Opiates Screen Urine Fentanyl Screen Ur Barbiturates Screen Ur Phencyclidine Scrn Ur Amphetamines Screen U Benzodiazepines Scrn Urine Cocaine Screen U Marijuana (THC) Screen Influenza Type A (PCR) Influenza Type B (PCR) RSV RNA Qual (PCR) SARS-CoV-2 RNA (RT-PCR) 01/16/22 12:30 WBC RBC Hgb Hct MCV MCH MCHC RDW Plt Count MPV Immature Gran % (Auto) Neut % (Auto) Lymph % (Auto) [place] % (Auto) Eos % (Auto) Baso % (Auto) Lymph # (Auto) [place] # (Auto) Eos # (Auto) Baso # (Auto) Abs Immat Gran (auto) Absolute Neuts (auto) Absolute Nucleated RBC Nucleated RBC % (auto) PT INR APTT VBG pH VBG pCO2 VBG pO2 VBG HCO3 VBG O2 Saturation VBG Base Excess Sodium Potassium Chloride Carbon Dioxide Anion Gap BUN Creatinine Estim Creat Clear Calc Estimated GFR POC Glucose 371 H* Random Glucose Lactic Acid Lactic Acid F/U @ 2Hr Calcium Total Bilirubin AST ALT Alkaline Phosphatase Troponin I High Sens B-Natriuretic Peptide Total Protein Albumin Urine Color Urine Appearance Urine pH Ur Specific [place] Urine Protein Urine Glucose (UA) Urine Ketones Urine Blood Urine Nitrite Ur Leukocyte Esterase Urine RBC Urine WBC Ur Squamous Epith Cells Urine Bacteria Hyaline Casts Urine Opiates Screen Urine Fentanyl Screen Ur Barbiturates Screen Ur Phencyclidine Scrn Ur Amphetamines Screen U Benzodiazepines Scrn Urine Cocaine Screen U Marijuana (THC) Screen Influenza Type A (PCR) Influenza Type B (PCR) RSV RNA Qual (PCR) SARS-CoV-2 RNA (RT-PCR) Imaging Radiology Impressions: ITS Impressions Head CT 01/15/22 06:35 IMPRESSION: Suboptimal assessment in some regions due to motion artifact. No acute intracranial pathology identified. Chest X-Ray 01/15/22 10:40 IMPRESSION: Unremarkable examination. Chest X-Ray 01/16/22 11:59 IMPRESSION: No acute cardiopulmonary process. Mental Status Exam Mental Status Exam Patient Appearance: Disheveled Patient Cognition Impaired: Yes Speech Pattern: Aphasic Medications Medications Current Medications Acetaminophen (Acetaminophen 325 Mg Tablet) 650 mg PO Q6H PRN PRN Reason: Pain, Mild (Pain Scale 1-3) Last Admin: 01/16/22 11:31 Dose: 650 mg Atorvastatin Calcium (Atorvastatin Calcium 20 Mg Tablet) 20 mg PO DAILY [facility] Last Admin: 01/16/22 10:07 Dose: 20 mg Enoxaparin Sodium (Enoxaparin Sodium 40 Mg/0.4 Ml Syringe) 40 mg SUBCUT Q24H [facility]ARM[facility] Last Admin: 01/16/22 10:06 Dose: 40 mg Ceftriaxone Sodium 1 gm/ (Sodium Chloride) 50 mls @ 100 mls/hr IV Q24H [facility] Last Admin: 01/16/22 13:32 Dose: 100 mls/hr Lactated Ringer's (Lr) 1,000 mls @ 100 mls/hr IVCONT .Q10H [facility] Stop: 01/17/22 08:59 Last Infusion: 01/16/22 14:11 Dose: 0 mls/hr Insulin Human Lispro (Insulin Lispro 100 Unit/Ml 3 Ml Vial) 0 unit SUBCUT QIDACHS [facility]; Protocol Last Admin: 01/16/22 12:51 Dose: 10 unit Lisinopril (Lisinopril 10 Mg Tablet) 30 mg PO DAILY [facility]; Protocol Last Admin: 01/16/22 10:06 Dose: 30 mg Ondansetron HCl (Ondansetron Hcl 4 Mg/2 Ml Vial) 4 mg IVPUSH Q8H PRN PRN Reason: Nausea and Vomiting Prazosin HCl (Prazosin Hcl 1 Mg Capsule) 3 mg PO BEDTIME [facility]; Protocol Sodium Chloride (0.9 % Sodium Chloride Flush 3 Ml Syringe) 3 ml IVFLUSH QSHIFT [facility] Last Admin: 01/16/22 10:07 Dose: 3 ml Allergies Allergies Allergy/AdvReac Type Severity Reaction Status Date / Time morphine [MORPHINE] Allergy Unknown RASH, vomit Verified 01/15/22 00:48 prednisone Allergy Unknown hives Verified 01/15/22 00:48 Sulfa (Sulfonamide Allergy Unknown UNKNOWN, Verified 01/15/22 00:48 Antibiotics) hives [SULFA (SULFONAMIDE ANTIBIOTICS)] Assessment & Plan Assessment & Plan (1) Opioid use disorder: Status: Acute Code(s): F11.90 - Opioid use, unspecified, uncomplicated Assessment and Plan: * concern for acute opioid withdrawal, given history and patient presentation. Patient unable to verbalize anything except for yes. * Methadone 20mg X1 ordered--patient re-evaluated by this telegraphic typewriter operator chief one hour after medication administration, patient awake, alert, appearing less restless, but still appearing uncomfortable. * will contact partner to obtain collateral regarding substance use (vm left) * neuro consult pending--unclear if current presentation is expected to improve. Will impact plan for treatment of OUD (ongoing MAT vs opioid taper) * methadone 10mg PRN QD for concern of opioid withdrawal --due to inability to communicate, please observe for increasing restlessness, moaning, loose stools, tachy * methadone 30mg in AM and will reassess I spent __45____ minutes with the patient and/or on the patient floor today, greater than?50% of which was spent counseling/coordinating care. [facility] Past Medical History Medical History Asthma Bipolar disorder Chronic pain Diabetes Hypertension IBS (irritable bowel syndrome) Peripheral neuropathy Polysubstance abuse Seizure Surgical History Surgical History History of appendectomy Social History Social History Household Members: Other Household Members Other:: roommate Housing: Assisted Living Facility Do you presently have visiting nurse or other home services: No Unable to assess alcohol history related to: Unable to respond Alcohol intake: former Patient Tobacco Use Status: Never used Tobacco Substance Use Type: Painkillers Advance Directives Date on File: 09/03/21 service: No Current occupational status: disabled
--- NOTE | 2022-01-16 14:20 | HO.SUDE ---
Unable to complete SUDE at this time due to mental status. Please see directory assistance operator note as well as Addiction Medicine Consult note by Anjali Long APRN.
[2022-01-16] MEDS: methADONE HCl 20 MG/2 ML ORAL.CONC PO (15:37)
--- NOTE | 2022-01-16 15:52 | P.CNNE_ITS ---
History of Present Illness Data of Consult Service Date: 01/16/22 Primary Care Provider: Unknown Physician HPI Reason for consult: unresponsiveness 56 years old woman brought in after Fenatyl OD as her drug of choice and also positive for Marijuana whtiaker sremained obtunded inspite of Narcan with question of hypoxic brain injury. In the past she has been admitted in this hospital with a seizure-like episode and then also with unresponsiveness.? Her previous brain MRI in 2019 was quite abnormal revealing extensive white matter signal abnormalities either suggestive of encephalitis or reversible vasoconstrictive s yndrome.? At that time she was sent to [facility] for further evaluation but I am not sure if any definite diagnosis was made.? She also has history of drug abuse and opiate abuse.? Review of Systems Review of Systems: unreliable due to mental status Yes Other (Unresponsive due to overdose) FORMERLY [facility], [facility] Past Medical History Medical History Asthma Bipolar disorder Chronic pain Diabetes Hypertension IBS (irritable bowel syndrome) Peripheral neuropathy Polysubstance abuse Seizure Family History Pertinent family history: unable to assess due to mental status changes Surgical History Surgical History History of appendectomy Social History Social History Household Members: Other Household Members Other:: roommate Housing: Assisted Living Facility Do you presently have visiting nurse or other home services: No Unable to assess alcohol history related to: Unable to respond Alcohol intake: former Patient Tobacco Use Status: Never used Tobacco Substance Use Type: Painkillers Advance Directives Date on File: 09/03/21 service: No Current occupational status: disabled Meds Allergies Allergy/AdvReac Type Severity Reaction Status Date / Time morphine [MORPHINE] Allergy Unknown RASH, vomit Verified 01/15/22 00:48 prednisone Allergy Unknown hives Verified 01/15/22 00:48 Sulfa (Sulfonamide Allergy Unknown UNKNOWN, Verified 01/15/22 00:48 Antibiotics) hives [SULFA (SULFONAMIDE ANTIBIOTICS)] Active Medications: Current Medications Acetaminophen (Acetaminophen 325 Mg Tablet) 650 mg PO Q6H PRN PRN Reason: Pain, Mild (Pain Scale 1-3) Last Admin: 01/16/22 11:31 Dose: 650 mg Atorvastatin Calcium (Atorvastatin Calcium 20 Mg Tablet) 20 mg PO DAILY [facility] Last Admin: 01/16/22 10:07 Dose: 20 mg Enoxaparin Sodium (Enoxaparin Sodium 40 Mg/0.4 Ml Syringe) 40 mg SUBCUT Q24H [facility]ARM[facility] Last Admin: 01/16/22 10:06 Dose: 40 mg Ceftriaxone Sodium 1 gm/ (Sodium Chloride) 50 mls @ 100 mls/hr IV Q24H [facility] Last Infusion: 01/16/22 14:32 Dose: Infused Lactated Ringer's (Lr) 1,000 mls @ 100 mls/hr IVCONT .Q10H [facility] Stop: 01/17/22 08:59 Last Infusion: 01/16/22 14:11 Dose: 0 mls/hr Insulin Human Lispro (Insulin Lispro 100 Unit/Ml 3 Ml Vial) 0 unit SUBCUT QIDACHS [facility]; Protocol Last Admin: 01/16/22 12:51 Dose: 10 unit Lisinopril (Lisinopril 10 Mg Tablet) 30 mg PO DAILY [facility]; Protocol Last Admin: 01/16/22 10:06 Dose: 30 mg Ondansetron HCl (Ondansetron Hcl 4 Mg/2 Ml Vial) 4 mg IVPUSH Q8H PRN PRN Reason: Nausea and Vomiting Prazosin HCl (Prazosin Hcl 1 Mg Capsule) 3 mg PO BEDTIME [facility]; Protocol Sodium Chloride (0.9 % Sodium Chloride Flush 3 Ml Syringe) 3 ml IVFLUSH QSHIFT [facility] Last Admin: 01/16/22 10:07 Dose: 3 ml Home Medications Medication Instructions Recorded Confirmed Last Taken Type lorazepam 0.5 mg tablet 0.5 mg PO DAILY PRN Anxiety 07/15/21 01/15/22 Unknown History quetiapine 200 mg tablet (Seroquel) 200 mg PO BEDTIME 07/15/21 01/15/22 09/01/21 History prazosin 1 mg capsule 3 mg PO BEDTIME 08/02/21 01/15/22 09/02/21 History metformin 1,000 mg tablet 1,000 mg PO BID 09/03/21 01/15/22 09/03/21 History multivitamin 1 tab PO DAILY 09/03/21 01/15/22 09/03/21 History atorvastatin 20 mg tablet 20 mg PO DAILY 01/15/22 01/15/22 Unknown History clonazepam 0.5 mg tablet 0.5 mg PO DAILY PRN Anxiety 01/15/22 01/15/22 Unknown History duloxetine 30 mg capsule,delayed 30 mg PO BID 01/15/22 01/15/22 Unknown History release lisinopril 30 mg tablet 30 mg PO DAILY 01/15/22 01/15/22 Unknown History lurasidone 120 mg tablet (Latuda) 120 mg PO DAILY 01/15/22 01/15/22 Unknown History sitagliptin 100 mg tablet (Januvia) 100 tab PO DAILY 01/15/22 01/15/22 Unknown History Physical Exam Vital Signs: Vital Signs: Last Vital Signs Temp 100.4 F 01/16/22 15:37 Pulse 98 01/16/22 15:37 Resp 19 01/16/22 15:37 BP 141/80 H 01/16/22 15:37 Pulse Ox 98 01/16/22 15:37 O2 Del Method 01/16/22 15:37 O2 Flow Rate 3 01/15/22 12:36 BMI result Body Mass Index 35.0 Const: Other: General - no acute distress, appears comfortable, staring blankly into space but does respond very slowly Cardiovascular - regular rate and rhythm, S1-S2 Lungs - normal respiratory effort, clear to auscultation bilaterally, no wheezing Abdomen - soft, nontender, no rebound or guarding Extremities - no edema bilaterally Neuro - awake and alert, moving all 4 limbs; pupils equal size and reactive; speech comprehensible but very slow; difficultly following commands Neuro: Other: She is awake and makes eye contact who occasionally follows one-step commands. Does not utter any words other than morning. He can move all 4 extremities against gravity. Plantar response is flexor. Neck is supple Results Labs CBC & Chem 7: 01/16/22 06:30 01/16/22 06:30 Labs: Short CBC 01/16/22 Range/Units 06:30 WBC 18.4 H (4.8-10.8) X10*3/uL Hgb 12.5 (12.0-16.0) g/dl Hct 39.5 (37.0-47.0) % Plt Count 319 D (160-400) X10*3/uL BMP 01/15/22 01/16/22 16:52 06:30 Sodium 143 Potassium 4.2 D 4.4 Chloride 100 Carbon Dioxide 26 BUN 25 H Creatinine 1.17 Calcium 9.3 D Urine 01/16/22 Range/Units 11:30 Urine Color Yellow Urine Appearance Cloudy Urine pH 6.5 (5.0-9.0) Ur Specific [place] >= 1.030 H (1.005-1.025) Urine Protein >=1000 (4+) H (Neg-Trace) mg/dL Urine Glucose (UA) >=1000 H (Negative) mg/dL Assessment and Plan (1) Accidental overdose: Status: Acute (2) Acute alteration in mental status: Status: Acute Drug overdose with possible superimposed mild hypoxic encephalopathy. CAT scan shows no acute findings. Recommend continuing supportive care. Waking EEG2 rule out subclinical status epilepticus (3) Opioid use disorder: Status: Acute * concern for acute opioid withdrawal, given history and patient presentation. Patient unable to verbalize anything except for yes. Plan 57 yo F with multiple medical issues and multiple prior similar presentations who again arrives with suspected overdose (pt states accidental, not on purpose) with opiates. 1. Acute toxic/metabolic encephalopathy due to suspected accidental opiate overdose slowly improving but suspect not at baseline; given pt had to be vented via bag mask, concern over anoxic injury -- will ask neurology for input s/p narcan drip continue holding sedative meds seen by speech this AM -- started on mechanical soft diet additionally -- pt with increasing leukocytosis; CXR yesterday was clear, will check UA and blood cx; chest cxr as well -- start antibiotics of any of those are positive for infection obtain collateral info re: her baseline status 2. DANY with hyperkalemia K normalized BMP pending this AM 3. DM hold oral meds, use sliding scale diabetic diet 4. bipolar d/o continue baseline meds once pt claeared for speech may need psych input if not improved 5. Uncontrolled HTN on norvasc at home, started this AM may need to uptitrate vs add additional meds Full COde DVT pptx -- lovenox Pt requires continued hospitailzation as she remains encephalopathic beyond her baseline. Work up for this is in process and she is not ready for discharge. Procedures Date of Service Date of Service: 01/16/22
[2022-01-16 15:54] LABS: Glucose, Whole Blood 226 mg/dL (60-115)
[2022-01-16 20:18] LABS: Glucose, Whole Blood 320 mg/dL (60-115)
[2022-01-16] MEDS: Prazosin HCL 1 MG CAPSULE 3 MG PO (21:04)
[2022-01-17 03:24] VITALS: BP 168/87; PULSE 88; RESP 16; TEMP 36.4; O2SAT 97
[2022-01-17 07:24] VITALS: BP 184/70; PULSE 73; RESP 16; TEMP 36.3; O2SAT 96
[2022-01-17 07:33] LABS: Glucose, Whole Blood 298 mg/dL (60-115)
[2022-01-17] MEDS: lisinopriL 10 MG TABLET 30 MG PO (07:49)
[2022-01-17] MEDS: Atorvastatin Calcium 20 MG TABLET PO (07:49)
[2022-01-17] MEDS: Insulin Lispro 100 UNIT/ML 3 ML VIAL SUBCUT ×4 (07:49→20:40)
[2022-01-17] MEDS: methADONE HCl 20 MG/2 ML ORAL.CONC 30 MG PO (07:50)
--- NOTE | 2022-01-17 10:31 | MHC.RECOVRN ---
Met with pt to assess for withdrawal symptoms. Pt laying in bed, appears much more comfortable than yesterday. Pts face not as red, not restless, not groaning. Appears calm and comfortable. Pt unable to respond to any questions, does not answer yes or no questions. Pt received 30 mg methadone this morning and appears to have positive effect. Discussed with RN as well as Anjali Long APRN.
[2022-01-17 10:57] LABS: Glucose, Whole Blood 283 mg/dL (60-115)
[2022-01-17 11:06] VITALS: BP 182/104; PULSE 89; RESP 16; TEMP 36.1; O2SAT 95
[2022-01-17] MEDS: Enoxaparin Sodium 40 MG/0.4 ML SYRINGE SUBCUT (12:04)
[2022-01-17] MEDS: cefTRIAXone sodium 1 GM in 0.9 % Sodium Chloride 50 ML IV (12:26)
--- NOTE | 2022-01-17 13:55 | MHC.SL.SWA ---
Addendum entered and electronically signed by KESHAV Encarnacion 01/17/22 15:39: S.W. Original Note: Speech Pathologist Impression: Oral phase dysphasia Risk of Aspiration Due to: Reduced Cognition Dysphasia Diet Status: Downgrade solids Recommend DOWNGRADE solids to PUREE (NDD1). Continue with thin liquids via teaspoon or straw. Introduce teaspoon of liquid to anterior oral cavity and cue pt to sip liquid. Pills to be crushed in puree. Pt requires 1:1 feed and consistent verbal/tactile cues to swallow. Check oral cavity for pocketing. Sips of liquid to help clear solid residue. Liquid Consistency and Strategies for Safe Swallow: Liquid Intake Recommendation: Thin Liquid Intake Strategies: Small Sips Solid Food Consistency: Dietary Recommendations: Pureed (NDD1) Additional Modifications to Solid Foods: Moisten food with sauce/gravy Oral Medication Intake: Crushed with Puree Please contact the pharmacy regarding appropriate crushable or liquid drug formulations that are available whenever modified delivery is recommended. Compensatory Strategies and Precautions to be Taken for Safe Swallow: Sitting Upright (90 deg) Alternate Liquids/Solids Oral Check Avoid Specific Foods Supervision While Eating and Drinking for Safe Swallow: Total Assistance (1:1) Foods to Avoid: Mixed consistencies (e.g. cereal and milk, thin soups with pieces of veg/meat). Sticky foods Swallowing Recommended Treatments: Compens. Strategy Educat. Recommendation for Speech: Inpatient Speech Therapy Comment: DIESEL FITTER MECHANIC checked in w/ RN upon arrival. RN reported pt pocketing at lunch (NDD2 meal: ground meat, carrots & mashed potato), coughing immediately after given liquid medication, tolerating meds crushed in puree. Pt seen for follow-up to bedside swallow evaluation done 01/16/22 by DIESEL FITTER MECHANIC. Pt vocalizing sounds, not words. Pt lifting up arms slowly and presenting w/ minimal teary eyes. D/t mention of pocketing during lunch, DIESEL FITTER MECHANIC checked for residue/bolus in oral cavity. When cued to open mouth, pt opened minimally. When presented to open mouth and say AH, pt opened mouth slightly greater. D/t obstructed view of oral cavity, pt used swab to enter oral cavity and clear trace residue. Pt was given thin liquids via teaspoon and straw as well as pureed and ground solids. Pt tolerated thin liquids via teaspoon and straw. Pt was cued to slurp or sip liquid from teaspoon. When presented with full teaspoon, note mild anterior bolus loss. When presented with smaller 1/4-1/2 teaspoon amounts of water anteriorly in oral cavity, pt observed to sip water from spoon and swallow timely. When presented with small bites of pudding and applesauce, pt was provided verbal and tactile cues to swallow. Pt swallowed majority of bites when cued to swallow. Pt required introduction of trace amt of water via teaspoon to clear bite of pudding that was not swallowed. Pt observed to hold bolus intermittently prior to swallowing. Pt given one small bite of pureed potatoes with ground carrots and minimal gravy which was pocketed. Pt not able to clear carrot or potato with sips of liquid. DIESEL FITTER MECHANIC had to clear bolus of potato and carrot w/ swab. Recommend DOWNGRADE solids to PUREE (NDD1). Continue with THIN liquids via teaspoon or straw. Introduce teaspoon of liquid to anterior oral cavity and cue pt to sip liquid. Pills to be crushed in puree. Pt requires 1:1 feed and consistent verbal/tactile cues to swallow. Check oral cavity for pocketing. Sips of liquid to help clear solid residue. Retrieval Specialist Clinican/Clinical Fellow: Yes: Radha Butler M.A., CF-DIESEL FITTER MECHANIC Supervisory Statement: I have reviewed and agree with the student/clinical fellow's documentation: N/A Speech Language Pathologist: Bri Stubbs M.A., CCC-DIESEL FITTER MECHANIC
--- NOTE | 2022-01-17 14:33 | MHC.CM.PN ---
per rounds pt to be seen by addiction medicine and fu w/neuro
--- NOTE | 2022-01-17 14:57 | HO.PM.IMPN ---
Subjective Subjective Date of Service: 01/17/22 Interval History: Nonverbal; will track with eye movement. When attempts speech face becomes quite erythematous; patient tears up Review of Systems Unable to obtain Physical Exam Vital Signs: Vital Signs: Last Vital Signs Temp 97 F 01/17/22 11:06 Pulse 89 01/17/22 11:06 Resp 16 01/17/22 11:06 BP 182/104 H 01/17/22 11:06 Pulse Ox 95 01/17/22 11:06 O2 Del Method 01/17/22 11:06 O2 Flow Rate 3 01/15/22 12:36 BMI result Body Mass Index 35.0 Const: Other: Awake nonverbal Resp: Other: Clear to auscultation bilaterally no rales rhonchi or wheezes Cardio: Other: No S4; positive S1-S2; no S3 murmurs rubs or gallops GI: Other: Soft nontender nondistended normoactive bowel sounds Neuro: Other: Appears to move all extremities with equal power. Limited exam Extrem: Other: No edema bilaterally Objective Data Active Medications Acetaminophen (Acetaminophen 325 Mg Tablet) 650 mg PO Q6H PRN PRN Reason: Pain, Mild (Pain Scale 1-3) Last Admin: 01/16/22 11:31 Dose: 650 mg Documented By: MADY Atorvastatin Calcium (Atorvastatin Calcium 20 Mg Tablet) 20 mg PO DAILY [facility] Last Admin: 01/17/22 07:49 Dose: 20 mg Documented By: MIC Enoxaparin Sodium (Enoxaparin Sodium 40 Mg/0.4 Ml Syringe) 40 mg SUBCUT Q24H [facility] Last Admin: 01/17/22 12:04 Dose: 40 mg Documented By: MIC Ceftriaxone Sodium 1 gm/ (Sodium Chloride) 50 mls @ 100 mls/hr IV Q24H [facility] Last Infusion: 01/17/22 12:59 Dose: 0 mls/hr Documented By: MIC Insulin Human Lispro (Insulin Lispro 100 Unit/Ml 3 Ml Vial) 0 unit SUBCUT QIDACHS [facility]; Protocol Last Admin: 01/17/22 12:04 Dose: 6 unit Documented By: MIC Lisinopril (Lisinopril 10 Mg Tablet) 30 mg PO DAILY [facility]; Protocol Last Admin: 01/17/22 07:49 Dose: 30 mg Documented By: MIC Methadone HCl (Methadone Hcl 20 Mg/2 Ml Oral.Conc) 10 mg PO DAILY PRN PRN Reason: Opiate Withdrawal Methadone HCl (Methadone Hcl 20 Mg/2 Ml Oral.Conc) 30 mg PO DAILY [facility] Last Admin: 01/17/22 07:50 Dose: 30 mg Documented By: MIC Ondansetron HCl (Ondansetron Hcl 4 Mg/2 Ml Vial) 4 mg IVPUSH Q8H PRN PRN Reason: Nausea and Vomiting Prazosin HCl (Prazosin Hcl 1 Mg Capsule) 3 mg PO BEDTIME [facility]; Protocol Last Admin: 01/16/22 21:04 Dose: 3 mg Documented By: AMEYA Sodium Chloride (0.9 % Sodium Chloride Flush 3 Ml Syringe) 3 ml IVFLUSH QSHIFT [facility] Last Admin: 01/17/22 07:50 Dose: Not Given Documented By: MIC Non-Admin Reason: IV Running Labs CBC & Chem 7: 01/16/22 06:30 01/16/22 06:30 Labs: Laboratory Results - last 24 hr 01/16/22 01/16/22 01/17/22 15:35 20:14 07:27 POC Glucose 226 H 320 H 298 H 01/17/22 10:49 POC Glucose 283 H Microbiology Microbiology Results: Microbiology 01/16/22 10:18 Blood Culture - Preliminary Blood - Venous No growth after 24 hours. 01/16/22 10:14 Blood Culture - Preliminary Blood - Venous No growth after 24 hours. 01/16/22 00:00 Urine Culture - Preliminary Urine Catheterized - Straight Catheter Gram negative shane Assessment and Plan (1) Toxic metabolic encephalopathy: Status: Acute (2) Accidental overdose: Status: Acute (3) DANY (acute kidney injury): Status: Acute (4) Diabetes: Status: Acute Plan 57 yo F with multiple medical issues and multiple prior similar presentations who again arrives with suspected overdose (pt states accidental, not on purpose) with opiates; found down at home; unknown down time 1. Acute toxic/metabolic encephalopathy due to suspected accidental opiate overdose -currently presents like anoxic brain injury -speech eval noted; diet changed -will get wake EEG as per Neurology 2. DANY with hyperkalemia -resolving -follow renals/divalents 3. DM -lispro correctional scale now that taking po,s -adjust as indicated 4.Uncontrolled HTN -add amlodipine -adjust as indication 5.Opiate abuse -Addiction medicine -continue methadone Lovenox Full code Pt requires continued hospitailzation as she remains encephalopathic beyond her baseline. Work up for this is in process and she is not ready for discharge. Quality Stroke Does the patient have a stroke diagnosis?: No VTE Prior VTE?: No VTE Risk Level:: Medical - moderate - high VTE Device Contraindication: Treatment Not Indicated VTE Drug Contraindication: N/A - Med Ordered
[2022-01-17 15:32] VITALS: BP 162/81; PULSE 75; RESP 19; TEMP 36.8; O2SAT 92
[2022-01-17 15:44] LABS: Glucose, Whole Blood 265 mg/dL (60-115)
[2022-01-17] MEDS: amLODIPine Besylate 10 MG TABLET PO (15:45)
[2022-01-17] MEDS: 0.9 % Sodium Chloride Flush 3 ML SYRINGE IVFLUSH ×2 (15:46→23:45)
--- NOTE | 2022-01-17 15:51 | HO.ADDICTPRO ---
Subjective Subjective Date of Service: 01/17/22 Reason For Visit: Overdose Interim History: patient seen in follow up received methadone 30mg this morning still unable to communicate this advertising copy writer was able to speak with Jaxosn Walton (lives with patient). He was unaware that patient had started using again as he believed she had been abstinent for several months. He was unable to report how much she had used in the past. Review of Systems Acute medical concerns: Yes Medical Review of Systems: unchanged Mental Status Exam Mental Status Exam Patient Appearance: Disheveled Patient Cognition Impaired: Yes Speech Pattern: Aphasic Diagnostics Vital Signs (24Hr): Vital Signs - 24 hr 01/16/22 20:00 01/16/22 23:34 01/17/22 03:24 Temperature 99.3 F 97.7 F 97.6 F Pulse Rate 73 76 88 Respiratory Rate 19 18 16 Blood Pressure 167/85 H 138/79 168/87 H Pulse Oximetry 95 95 97 Oxygen Delivery Method Room Air Room Air Room Air 01/17/22 07:24 01/17/22 11:06 01/17/22 15:32 Temperature 97.3 F 97 F 98.3 F Pulse Rate 73 89 75 Respiratory Rate 16 16 19 Blood Pressure 184/70 H 182/104 H 162/81 H Pulse Oximetry 96 95 92 Oxygen Delivery Method Room Air Room Air Room Air BMI result Body Mass Index 35.0 Labs Results: 01/16/22 06:30 01/16/22 06:30 Labs: Laboratory Results - last 48 hr 01/15/22 01/16/22 01/16/22 16:52 06:30 06:30 WBC 18.4 H RBC 4.69 Hgb 12.5 Hct 39.5 MCV 84.2 MCH 26.7 L MCHC 31.6 RDW 15.0 Plt Count 319 D MPV 11.7 Absolute Nucleated RBC 0.000 Nucleated RBC % (auto) 0.0 Sodium 143 Potassium 4.2 D 4.4 Chloride 100 Carbon Dioxide 26 Anion Gap 21 H BUN 25 H Creatinine 1.17 Estim Creat Clear Calc 62.0 Estimated GFR 48 POC Glucose Random Glucose 317 H Calcium 9.3 D Urine Color Urine Appearance Urine pH Ur Specific [place] Urine Protein Urine Glucose (UA) Urine Ketones Urine Blood Urine Nitrite Ur Leukocyte Esterase Urine RBC Urine WBC Ur Squamous Epith Cells Urine Bacteria Hyaline Casts 01/16/22 01/16/22 01/16/22 11:30 12:30 15:35 WBC RBC Hgb Hct MCV MCH MCHC RDW Plt Count MPV Absolute Nucleated RBC Nucleated RBC % (auto) Sodium Potassium Chloride Carbon Dioxide Anion Gap BUN Creatinine Estim Creat Clear Calc Estimated GFR POC Glucose 371 H* 226 H Random Glucose Calcium Urine Color Yellow Urine Appearance Cloudy Urine pH 6.5 Ur Specific [place] >= 1.030 H Urine Protein >=1000 (4+) H Urine Glucose (UA) >=1000 H Urine Ketones 40 Urine Blood Moderate (2+) H Urine Nitrite Negative Ur Leukocyte Esterase Trace H Urine RBC 6-10 H Urine WBC >50 H Ur Squamous Epith Cells 0-2 Urine Bacteria 1+ Hyaline Casts 0-2 01/16/22 01/17/22 01/17/22 20:14 07:27 10:49 WBC RBC Hgb Hct MCV MCH MCHC RDW Plt Count MPV Absolute Nucleated RBC Nucleated RBC % (auto) Sodium Potassium Chloride Carbon Dioxide Anion Gap BUN Creatinine Estim Creat Clear Calc Estimated GFR POC Glucose 320 H 298 H 283 H Random Glucose Calcium Urine Color Urine Appearance Urine pH Ur Specific [place] Urine Protein Urine Glucose (UA) Urine Ketones Urine Blood Urine Nitrite Ur Leukocyte Esterase Urine RBC Urine WBC Ur Squamous Epith Cells Urine Bacteria Hyaline Casts 01/17/22 15:28 WBC RBC Hgb Hct MCV MCH MCHC RDW Plt Count MPV Absolute Nucleated RBC Nucleated RBC % (auto) Sodium Potassium Chloride Carbon Dioxide Anion Gap BUN Creatinine Estim Creat Clear Calc Estimated GFR POC Glucose 265 H Random Glucose Calcium Urine Color Urine Appearance Urine pH Ur Specific [place] Urine Protein Urine Glucose (UA) Urine Ketones Urine Blood Urine Nitrite Ur Leukocyte Esterase Urine RBC Urine WBC Ur Squamous Epith Cells Urine Bacteria Hyaline Casts Imaging Radiology Impressions: ITS Impressions Head CT 01/15/22 06:35 IMPRESSION: Suboptimal assessment in some regions due to motion artifact. No acute intracranial pathology identified. Chest X-Ray 01/15/22 10:40 IMPRESSION: Unremarkable examination. Chest X-Ray 01/16/22 11:59 IMPRESSION: No acute cardiopulmonary process. Medications Medications Current Medications Acetaminophen (Acetaminophen 325 Mg Tablet) 650 mg PO Q6H PRN PRN Reason: Pain, Mild (Pain Scale 1-3) Last Admin: 01/16/22 11:31 Dose: 650 mg Amlodipine Besylate (Amlodipine Besylate 10 Mg Tablet) 10 mg PO DAILY [facility]; Protocol Last Admin: 01/17/22 15:45 Dose: 10 mg Atorvastatin Calcium (Atorvastatin Calcium 20 Mg Tablet) 20 mg PO DAILY [facility] Last Admin: 01/17/22 07:49 Dose: 20 mg Enoxaparin Sodium (Enoxaparin Sodium 40 Mg/0.4 Ml Syringe) 40 mg SUBCUT Q24H [facility] Last Admin: 01/17/22 12:04 Dose: 40 mg Ceftriaxone Sodium 1 gm/ (Sodium Chloride) 50 mls @ 100 mls/hr IV Q24H [facility] Last Infusion: 01/17/22 12:59 Dose: Infused Insulin Human Lispro (Insulin Lispro 100 Unit/Ml 3 Ml Vial) 0 unit SUBCUT QIDACHS [facility]; Protocol Last Admin: 01/17/22 12:04 Dose: 6 unit Lisinopril (Lisinopril 10 Mg Tablet) 30 mg PO DAILY [facility]; Protocol Last Admin: 01/17/22 07:49 Dose: 30 mg Methadone HCl (Methadone Hcl 20 Mg/2 Ml Oral.Conc) 10 mg PO DAILY PRN PRN Reason: Opiate Withdrawal Methadone HCl (Methadone Hcl 20 Mg/2 Ml Oral.Conc) 30 mg PO DAILY [facility] Last Admin: 01/17/22 07:50 Dose: 30 mg Ondansetron HCl (Ondansetron Hcl 4 Mg/2 Ml Vial) 4 mg IVPUSH Q8H PRN PRN Reason: Nausea and Vomiting Prazosin HCl (Prazosin Hcl 1 Mg Capsule) 3 mg PO BEDTIME [facility]; Protocol Last Admin: 01/16/22 21:04 Dose: 3 mg Sodium Chloride (0.9 % Sodium Chloride Flush 3 Ml Syringe) 3 ml IVFLUSH QSHIFT [facility] Last Admin: 01/17/22 15:46 Dose: 3 ml Allergies Allergies Allergy/AdvReac Type Severity Reaction Status Date / Time morphine [MORPHINE] Allergy Unknown RASH, vomit Verified 01/15/22 00:48 prednisone Allergy Unknown hives Verified 01/15/22 00:48 Sulfa (Sulfonamide Allergy Unknown UNKNOWN, Verified 01/15/22 00:48 Antibiotics) hives [SULFA (SULFONAMIDE ANTIBIOTICS)] Assessment & Plan Assessment & Plan (1) Opioid use disorder: Status: Acute Code(s): F11.90 - Opioid use, unspecified, uncomplicated Assessment and Plan: discussed case with attending provider, plan to continue with methadone 30mg QD with scheduled oxycodone throughout the day for now still considering tapering if cognitive status does not improve I spent ___35___ minutes with the patient and/or on the patient floor today, greater than?50% of which was spent counseling/coordinating care.
[2022-01-17 19:53] VITALS: BP 162/85; PULSE 81; RESP 18; TEMP 36.8; O2SAT 95
[2022-01-17 20:26] LABS: Glucose, Whole Blood 248 mg/dL (60-115)
[2022-01-17] MEDS: Prazosin HCL 1 MG CAPSULE 3 MG PO (20:40)
[2022-01-17 23:51] VITALS: BP 120/78; PULSE 89; RESP 18; TEMP 36.8; O2SAT 97
--- NOTE | 2022-01-18 | EEG_ITS ---
The waking background activity consists of a diffuse moderate to high voltage 3 to 4 hertz delta. Photic stimulation and hyperventilation were omitted. No sleep stages were identified. IMPRESSION: This is a markedly abnormal EEG due to severe diffuse delta slowing consistent with a diffuse encephalopathic process. No epileptiform discharges were seen. MD PRETTY Naylor/CHIARA / [id number]
[2022-01-18 03:26] VITALS: BP 144/78; PULSE 94; RESP 16; TEMP 37.1; O2SAT 97
[2022-01-18 06:41] LABS: MANUAL DIFF FLAG NO
[2022-01-18 06:44] LABS: Basophils Absolute Auto 0.1 X10*3/uL (0.0-0.2); Basophils Percent Auto 0.4 % (0-2); Eosinophils Percent Auto 0.1 % (0-4); Hematocrit 40.1 % (37.0-47.0); Hemoglobin 13.2 g/dl (12.0-16.0); Imm Gran Abs Auto 0.07 X10*3/uL (0.00-0.03); Imm Gran Pct Auto 0.4 % (0.0-0.4); Lymphocytes Absolute Auto 2.9 X10*3/uL (1.2-4.9); Lymphocytes Percent Auto 18.1 % (20-40); Mean Corpuscular HGB Conc 32.9 g/dl (31.0-35.0); Mean Corpuscular Hemoglobin 27.6 pg (27.0-33.0); Mean Corpuscular Volume 83.7 fL (80.0-98.0); Mean Platelet Volume 11.5 fL (9.4-12.3); Monocytes Absolute Auto 0.9 X10*3/uL (0.1-1.2); Monocytes Percent Auto 5.6 % (2-11); Neutrophils Absolute Auto 11.9 x10*3/uL (2.0-8.3); Neutrophils Percent Auto 75.4 % (45-73); Platelet Count 293 X10*3/uL (160-400); Red Blood Count 4.79 X10*6/uL (4.20-5.50); Red Cell Distribution Width 15.1 % (11.0-16.0); White Blood Count 15.8 X10*3/uL (4.8-10.8)
[2022-01-18 07:09] LABS: Glucose, Whole Blood 340 mg/dL (60-115)
[2022-01-18 07:19] VITALS: BP 172/80; PULSE 88; RESP 16; TEMP 36.6; O2SAT 93
[2022-01-18 07:24] LABS: Alanine Aminotransferase 16 U/L (0-31); Albumin Level 3.9 g/dL (3.5-5.0); Alkaline Phosphatase 90 U/L (39-117); Anion Gap 17 (12-20); Aspartate Amino Transferase 20 U/L (5-31); Bilirubin Total 0.7 mg/dL (0.0-1.0); Blood Urea Nitrogen 32 mg/dL (9-16); Calcium 9.4 mg/dL (8.4-10.2); Carbon Dioxide 28 mmol/L (22-29); Chloride 101 mmol/L (96-108); Estimated Glomerular Filt Rate 44; Potassium 3.9 mmol/L (3.3-5.1); Sodium 142 mmol/L (135-145); Total Protein 6.9 g/dL (6.5-8.0)
[2022-01-18 07:49] LABS: Glucose Fasting 342 mg/dL (60-99)
[2022-01-18] MEDS: Atorvastatin Calcium 20 MG TABLET PO (08:45)
[2022-01-18] MEDS: lisinopriL 10 MG TABLET 30 MG PO (08:45)
[2022-01-18] MEDS: methADONE HCl 20 MG/2 ML ORAL.CONC 30 MG PO (08:48)
[2022-01-18] MEDS: amLODIPine Besylate 10 MG TABLET PO (08:48)
[2022-01-18] MEDS: Insulin Lispro 100 UNIT/ML 3 ML VIAL SUBCUT ×4 (08:51→21:12)
[2022-01-18] MEDS: 0.9 % Sodium Chloride Flush 3 ML SYRINGE IVFLUSH ×2 (09:46→17:01)
[2022-01-18 11:59] VITALS: BP 160/74; PULSE 80; RESP 18; TEMP 36.2; O2SAT 93
[2022-01-18 12:03] LABS: Glucose, Whole Blood 277 mg/dL (60-115)
[2022-01-18] MEDS: Enoxaparin Sodium 40 MG/0.4 ML SYRINGE SUBCUT (12:28)
[2022-01-18] MEDS: cefTRIAXone sodium 1 GM in 0.9 % Sodium Chloride 50 ML IV (12:29)
[2022-01-18 15:02] VITALS: BP 168/84; PULSE 89; RESP 18; TEMP 37.2; O2SAT 92
[2022-01-18 15:55] LABS: Glucose, Whole Blood 254 mg/dL (60-115)
--- NOTE | 2022-01-18 16:22 | MHC.SL.SWA ---
Addendum entered and electronically signed by KESHAV Encarnacion 01/18/22 16:50: S.W. Original Note: Speech Pathologist Impression: Oral phase dysphasia Risk of Aspiration Due to: Reduced Cognition Dysphasia Diet Status: No change Liquid Consistency and Strategies for Safe Swallow: Liquid Intake Recommendation: Thin Liquid Intake Strategies: Small Sips Solid Food Consistency: Dietary Recommendations: Pureed (NDD1) Additional Modifications to Solid Foods: Moisten food with sauce/gravy Oral Medication Intake: Crushed with Puree Please contact the pharmacy regarding appropriate crushable or liquid drug formulations that are available whenever modified delivery is recommended. Compensatory Strategies and Precautions to be Taken for Safe Swallow: Sitting Upright (90 deg) Alternate Liquids/Solids Oral Check Avoid Specific Foods Supervision While Eating and Drinking for Safe Swallow: Total Assistance (1:1) Foods to Avoid: Mixed consistencies (e.g. cereal and milk, thin soups with pieces of veg/meat). Sticky foods Swallowing Recommended Treatments: Compens. Strategy Educat. Recommendation for Speech: Inpatient Speech Therapy Comment: Staff reported pocketing of ground solids yesterday and inconsistency of verbal communication and reliability of yes/no. Pt was given paper with YES and NO written on it during yesterday's visit. Staff reported that this morning pt stated hello how are you as well as yes. Staff also reported that pt used simple yes/no communication board to indicate yes by moving both hands to point to yes and shift her eyes towards yes. During CLINICAL IMPLEMENTATION SPECIALIST visit, pt's vocalizations were limited to moaning. Pt did not repeat AH as she did yesterday. Pt shown paper with yes and no as clinician read aloud and pointed to each option. Pt looked immediately at yes and held gaze there, when asked do you want food? However, at this time it is unclear if pt's verbal yes or alternative communication of yes and no are reliable. Pt did not follow cues to open mouth. Pt accepted limited PO trials, a few bites of raspberry sherbert and sips of water. Trace amount of sherbert and water were presented each teaspoon with verbal and tactile cues to swallow. Swallow was visible upon presentation of PO the majority of times. In one instance, pt required presentation of dry spoon to elicit swallow of bolus. Pt made a slight grimmace after first teaspoon of sherbert; possible indication that she did not like it. Pt opened mouth slightly to accept first two bites of sherbert and a few teaspoons of water. When presented with trace amount of water via teaspoon, pt opened mouth slightly and was cued to sip or slurp the water. Pt's sipping of water indication of consent and desire for water. When presented with straw, pt did not open mouth. Recommend to continue with PUREE (NDD1) solids. Continue with thin liquids via teaspoon or straw. Introduce teaspoon of liquid to anterior oral cavity and cue pt to sip liquid. Pills to be crushed in puree. Pt requires 1:1 feed and consistent verbal/tactile cues to swallow. Check oral cavity for pocketing. Sips of liquid to help clear solid residue. Pt must be awake and alert for presentation of PO. Hold tray if pt is lethargic, w/ decreased responsiveness. Urology Surgeon Clinican/Clinical Fellow: Yes: Radha Butler M.A., CF-CLINICAL IMPLEMENTATION SPECIALIST Supervisory Statement: I have reviewed and agree with the student/clinical fellow's documentation: Yes Speech Language Pathologist: Bri Stubbs M.A., CCC-CLINICAL IMPLEMENTATION SPECIALIST
[2022-01-18 19:19] VITALS: BP 141/87; PULSE 100; RESP 18; TEMP 37.2; O2SAT 93
[2022-01-18 19:43] LABS: Glucose, Whole Blood 380 mg/dL (60-115)
[2022-01-18] MEDS: Prazosin HCL 1 MG CAPSULE 3 MG PO (21:12)
[2022-01-18 23:43] VITALS: BP 100/60; PULSE 94; RESP 14; TEMP 37.9; O2SAT 92
[2022-01-19] MEDS: 0.9 % Sodium Chloride Flush 3 ML SYRINGE IVFLUSH ×3 (00:44→21:00)
[2022-01-19 03:15] VITALS: BP 120/60; PULSE 92; RESP 18; TEMP 37.2; O2SAT 95
[2022-01-19 06:09] LABS: MANUAL DIFF FLAG NO
[2022-01-19 06:15] LABS: Basophils Absolute Auto 0.1 X10*3/uL (0.0-0.2); Basophils Percent Auto 0.6 % (0-2); Eosinophils Percent Auto 0.3 % (0-4); Hematocrit 39.9 % (37.0-47.0); Hemoglobin 12.7 g/dl (12.0-16.0); Imm Gran Abs Auto 0.08 X10*3/uL (0.00-0.03); Imm Gran Pct Auto 0.5 % (0.0-0.4); Lymphocytes Absolute Auto 3.5 X10*3/uL (1.2-4.9); Lymphocytes Percent Auto 23.8 % (20-40); Mean Corpuscular HGB Conc 31.8 g/dl (31.0-35.0); Mean Corpuscular Volume 84.7 fL (80.0-98.0); Mean Platelet Volume 11.3 fL (9.4-12.3); Monocytes Absolute Auto 0.8 X10*3/uL (0.1-1.2); Monocytes Percent Auto 5.5 % (2-11); Neutrophils Absolute Auto 10.2 x10*3/uL (2.0-8.3); Neutrophils Percent Auto 69.3 % (45-73); Platelet Count 308 X10*3/uL (160-400); Red Blood Count 4.71 X10*6/uL (4.20-5.50); Red Cell Distribution Width 15.4 % (11.0-16.0); White Blood Count 14.7 X10*3/uL (4.8-10.8)
[2022-01-19 06:32] LABS: Alanine Aminotransferase 17 U/L (0-31); Alkaline Phosphatase 91 U/L (39-117); Anion Gap 22 (12-20); Aspartate Amino Transferase 19 U/L (5-31); Bilirubin Total 0.8 mg/dL (0.0-1.0); Blood Urea Nitrogen 46 mg/dL (9-16); Calcium 9.3 mg/dL (8.4-10.2); Carbon Dioxide 26 mmol/L (22-29); Chloride 99 mmol/L (96-108); Creatinine Clr Calc Pharmacy 41.7; Estimated Glomerular Filt Rate 30; Glucose Fasting 306 mg/dL (60-99); Potassium 3.7 mmol/L (3.3-5.1); Sodium 143 mmol/L (135-145); Total Protein 6.9 g/dL (6.5-8.0)
[2022-01-19 07:39] VITALS: BP 176/75; PULSE 79; RESP 20; TEMP 37.2; O2SAT 94
[2022-01-19 07:48] LABS: Glucose, Whole Blood 338 mg/dL (60-115)
[2022-01-19] MEDS: Insulin Lispro 100 UNIT/ML 3 ML VIAL SUBCUT ×5 (08:02→21:05)
[2022-01-19] MEDS: Atorvastatin Calcium 20 MG TABLET PO (08:02)
[2022-01-19] MEDS: amLODIPine Besylate 10 MG TABLET PO (08:02)
[2022-01-19] MEDS: lisinopriL 10 MG TABLET 30 MG PO (08:03)
[2022-01-19] MEDS: methADONE HCl 20 MG/2 ML ORAL.CONC 30 MG PO (08:03)
[2022-01-19 11:04] LABS: Glucose, Whole Blood 314 mg/dL (60-115)
[2022-01-19 11:15] VITALS: BP 164/81; PULSE 86; RESP 20; TEMP 37.6; O2SAT 93
--- NOTE | 2022-01-19 12:07 | P.PNIM_ITS ---
Subjective Subjective Date of Service: 01/19/22 Interval History: No improvement in cognition overnight Review of Systems Unable to obtain Physical Exam Vital Signs: Vital Signs: Last Vital Signs Temp 99.6 F 01/19/22 11:15 Pulse 86 01/19/22 11:15 Resp 20 01/19/22 11:15 BP 164/81 H 01/19/22 11:15 Pulse Ox 93 01/19/22 11:15 O2 Del Method 01/19/22 11:15 O2 Flow Rate 3 01/15/22 12:36 BMI result Body Mass Index 35.0 Const: Other: Awake nonverbal Resp: Other: Clear to auscultation bilaterally no rales rhonchi or wheezes Cardio: Other: No S4; positive S1-S2; no S3 murmurs rubs or gallops GI: Other: Soft nontender nondistended normoactive bowel sounds Neuro: Other: Appears to move all extremities with equal power. Limited exam Extrem: Other: No edema bilaterally Objective Data Active Medications Acetaminophen (Acetaminophen 325 Mg Tablet) 650 mg PO Q6H PRN PRN Reason: Pain, Mild (Pain Scale 1-3) Last Admin: 01/16/22 11:31 Dose: 650 mg Documented By: MADY Amlodipine Besylate (Amlodipine Besylate 10 Mg Tablet) 10 mg PO DAILY [facility]; Protocol Last Admin: 01/19/22 08:02 Dose: 10 mg Documented By: YAMILET Atorvastatin Calcium (Atorvastatin Calcium 20 Mg Tablet) 20 mg PO DAILY [facility] Last Admin: 01/19/22 08:02 Dose: 20 mg Documented By: YAMILET Enoxaparin Sodium (Enoxaparin Sodium 40 Mg/0.4 Ml Syringe) 40 mg SUBCUT Q24H [facility] Last Admin: 01/18/22 12:28 Dose: 40 mg Documented By: DO Ceftriaxone Sodium 1 gm/ (Sodium Chloride) 50 mls @ 100 mls/hr IV Q24H [facility] Last Infusion: 01/18/22 13:24 Dose: 0 mls/hr Documented By: DO Lactated Ringer's (Lr) 1,000 mls @ 100 mls/hr IVCONT .Q10H [facility] Insulin Human Lispro (Insulin Lispro 100 Unit/Ml 3 Ml Vial) 0 unit SUBCUT QIDACHS [facility]; Protocol Last Admin: 01/19/22 08:02 Dose: 8 unit Documented By: YAMILET Lisinopril (Lisinopril 10 Mg Tablet) 30 mg PO DAILY [facility]; Protocol Last Admin: 01/19/22 08:03 Dose: 30 mg Documented By: YAMILET Methadone HCl (Methadone Hcl 20 Mg/2 Ml Oral.Conc) 10 mg PO DAILY PRN PRN Reason: Opiate Withdrawal Methadone HCl (Methadone Hcl 20 Mg/2 Ml Oral.Conc) 30 mg PO DAILY [facility] Last Admin: 01/19/22 08:03 Dose: 30 mg Documented By: YAMILET Ondansetron HCl (Ondansetron Hcl 4 Mg/2 Ml Vial) 4 mg IVPUSH Q8H PRN PRN Reason: Nausea and Vomiting Prazosin HCl (Prazosin Hcl 1 Mg Capsule) 3 mg PO BEDTIME [facility]; Protocol Last Admin: 01/18/22 21:12 Dose: 3 mg Documented By: YUMIKO Sodium Chloride (0.9 % Sodium Chloride Flush 3 Ml Syringe) [facility] Last Admin: 01/19/22 08:10 Dose: 3 ml Documented By: YAMILET Labs CBC & Chem 7: 01/19/22 05:48 01/19/22 05:48 Labs: Laboratory Results - last 24 hr 01/18/22 01/18/22 01/19/22 15:47 19:22 05:48 MCV 84.7 MCH 27.0 MCHC 31.8 RDW 15.4 Plt Count 308 MPV 11.3 Immature Gran % (Auto) 0.5 H Neut % (Auto) 69.3 Lymph % (Auto) 23.8 Woodson % (Auto) 5.5 Eos % (Auto) 0.3 Baso % (Auto) 0.6 Lymph # (Auto) 3.5 Woodson # (Auto) 0.8 Eos # (Auto) 0.0 Baso # (Auto) 0.1 Abs Immat Gran (auto) 0.08 H Absolute Neuts (auto) 10.2 H Absolute Nucleated RBC 0.000 Nucleated RBC % (auto) 0.0 Anion Gap Estim Creat Clear Calc Estimated GFR POC Glucose 254 H 380 H* Fasting Glucose Calcium Total Bilirubin AST ALT Alkaline Phosphatase Total Protein Albumin 01/19/22 01/19/22 01/19/22 05:48 07:37 11:00 MCV MCH MCHC RDW Plt Count MPV Immature Gran % (Auto) Neut % (Auto) Lymph % (Auto) Woodson % (Auto) Eos % (Auto) Baso % (Auto) Lymph # (Auto) Woodson # (Auto) Eos # (Auto) Baso # (Auto) Abs Immat Gran (auto) Absolute Neuts (auto) Absolute Nucleated RBC Nucleated RBC % (auto) Anion Gap 22 H Estim Creat Clear Calc 41.7 Estimated GFR 30 POC Glucose 338 H 314 H Fasting Glucose 306 H Calcium 9.3 Total Bilirubin 0.8 AST 19 ALT 17 Alkaline Phosphatase 91 Total Protein 6.9 Albumin 4.0 Microbiology Microbiology Results: Microbiology 01/16/22 10:18 Blood Culture - Preliminary Blood - Venous No growth after 48 hours. 01/16/22 10:14 Blood Culture - Preliminary Blood - Venous No growth after 48 hours. 01/16/22 00:00 Urine Culture - Final Urine Catheterized - Straight Catheter Escherichia coli Assessment and Plan (1) Toxic metabolic encephalopathy: Status: Acute (2) DANY (acute kidney injury): Status: Acute (3) Diabetes: Status: Acute Plan 57 yo F with multiple medical issues and multiple prior similar presentations who again arrives with suspected overdose (pt states accidental, not on purpose) with opiates; found down at home; unknown down time 1. Acute toxic/metabolic encephalopathy due to suspected accidental opiate over dose -currently presents like anoxic brain injury.... No appreciable improvement -speech eval noted; diet changed -EEG CONSISTENT WITH A MARKEDLY ABNORMAL PATTERN SEVERE DIFFUSE DELTA SLOWING CONSISTENT WITH A DIFFUSE ENCEPHALOPATHIC PROCESS. NO EPILEPTIFORM DISCHARGES WERE SEEN 2. DANY with hyperkalemia -resolving -follow renals/divalents 3. DM -lispro correctional scale now that taking po,s -adjust as indicated 4.Uncontrolled HTN -add hydralazine 10 mg t.i.d. (worsening renal function) -adjust as indication 5.Opiate abuse -Addiction medicine -continue methadone Lovenox Full code Pt requires continued hospitailzation as she remains encephalopathic beyond her baseline. Work up for this is in process and she is not ready for discharge. Quality Stroke Does the patient have a stroke diagnosis?: No VTE Prior VTE?: No VTE Risk Level:: Medical - moderate - high VTE Device Contraindication: Treatment Not Indicated VTE Drug Contraindication: N/A - Med Ordered
[2022-01-19] MEDS: Enoxaparin Sodium 40 MG/0.4 ML SYRINGE SUBCUT (12:08)
[2022-01-19] MEDS: Lactated Ringers 1,000 ML 100 ML IVCONT ×2 (12:12→23:28)
[2022-01-19] MEDS: cefTRIAXone sodium 1 GM in 0.9 % Sodium Chloride 50 ML IV (12:20)
--- NOTE | 2022-01-19 13:12 | MHC.CM.PN ---
Female 57 s/p OD is not ready for discharge per MD rounds. MODELING DIRECTOR eval, modified diet ordered. DP Home with s.o. transport was initially the DP. Dispo dependent on patient recovery.
[2022-01-19 15:13] VITALS: BP 131/75; PULSE 86; RESP 16; TEMP 37.2; O2SAT 92
[2022-01-19 15:36] LABS: Glucose, Whole Blood 321 mg/dL (60-115)
--- NOTE | 2022-01-19 15:49 | MHC.SL.SWA ---
Addendum entered and electronically signed by KESHAV Encarnacion 01/19/22 16:36: S.W. Original Note: Speech Pathologist Impression: Oral phase dysphasia Risk of Aspiration Due to: Reduced Cognition Dysphasia Diet Status: Recommend to continue with PUREE (NDD1) solids. Continue with thin liquids via teaspoon or straw. Introduce teaspoon of liquid to anterior oral cavity and cue pt to sip liquid. Pills to be crushed in puree. Pt requires 1:1 feed and consistent verbal/tactile cues to swallow. Check oral cavity for pocketing. Sips of liquid to help clear solid residue. Pt must be awake and alert for presentation of PO. Hold tray if pt is lethargic, w/ decreased responsiveness. Liquid Consistency and Strategies for Safe Swallow: Liquid Intake Recommendation: Thin Liquid Intake Strategies: Small Sips Solid Food Consistency: Dietary Recommendations: Pureed (NDD1) Additional Modifications to Solid Foods: Moisten food with sauce/gravy Oral Medication Intake: Crushed with Puree Please contact the pharmacy regarding appropriate crushable or liquid drug formulations that are available whenever modified delivery is recommended. Compensatory Strategies and Precautions to be Taken for Safe Swallow: Sitting Upright (90 deg) Alternate Liquids/Solids Oral Check Avoid Specific Foods Supervision While Eating and Drinking for Safe Swallow: Total Assistance (1:1) Foods to Avoid: Mixed consistencies (e.g. cereal and milk, thin soups with pieces of veg/meat). Sticky foods Swallowing Recommended Treatments: Compens. Strategy Educat. Recommendation for Speech: Inpatient Speech Therapy Comment: Checked in MET[employer] OR WOOD BLOCKER who reported pt ate 50-100% of breakfast and lunch today at a very slow rate with no coughing observed. When asked if she wanted something to eat or drink, pt nodded head up and down a few times. DENTAL TECH prompted pt to repeat same motion, pt did not. DENTAL TECH attempted new eye gaze communication board. Pt appeared to look at all icons on communication board; however unable to get consistent/reliable responses with this board. Continue to recommend PUREE (NDD1) solids and THIN liquids via teaspoon or straw. Introduce teaspoon of liquid to anterior oral cavity and cue pt to sip liquid. Pills to be crushed in puree. Pt requires 1:1 feed and consistent verbal/tactile cues to swallow. Check oral cavity for pocketing. Sips of liquid to help clear solid residue. Pt must be awake and alert for presentation of PO. Hold tray if pt is lethargic, w/ decreased responsiveness. Advanced Practice Psychiatric Nurse Clinican/Clinical Fellow: Yes: Radha Butler M.A., CF-DENTAL TECH Supervisory Statement: I have reviewed and agree with the student/clinical fellow's documentation: Yes Speech Language Pathologist: Bri Stubbs M.A., [facility]-DENTAL TECH
--- NOTE | 2022-01-19 18:07 | P.CDIC_ITS ---
CDI Concurrent Query Documentation Clarification: PHYSICIAN'S DOCUMENTATION REQUEST Date of Query: 01/19/22 1808 Patient Name: Kaylyn Cruz Admit Date: 01/15/22 Dear Doctor, A review of the medical record indicates additional documentation may be needed. Please review below and update the documentation accordingly. Clinical Indicators: Is there a diagnosis that correlates with the findings below: Risk Factors/Clinical Indicators/Treatments Labs: POC on 01/18: 380 POC on 01/19: 338 Home Medcations: sitagliptin 100 mg daily Please clarify the following regarding Diabetes Mellitus (DM): * Hyperglycemia * No complications of DM * Other complication ? please specify * Unable to determine Use of terms such as suspected, likely, concern for, or probable (associated with a specific diagnosis that is being evaluated, monitored, or treated as if it exists) are acceptable and can be coded in the inpatient setting, when documented at the time of discharge. Thank you, Shweta Sutherland MS, RN, CCRN Extension: [phone] Please use your independent medical judgment in providing your response. THIS QUERY IS PART OF THE PERMANENT MEDICAL RECORD Provider Response: Other Other Diagnosis: Hyperglycemia in the backdrop of type 2 diabetes
--- NOTE | 2022-01-19 18:18 | P.CDIC_ITS ---
CDI Concurrent Query Documentation Clarification: PHYSICIAN'S DOCUMENTATION REQUEST Date of Query: 01/19/221818 Patient Name: Kaylyn Cruz Admit Date: 01/15/22 Dear Doctor, A review of the medical record indicates additional documentation may be indicated. Please review below and update the documentation accordingly. Clinical Indicators: Is there a diagnosis that correlates with the findings below: Risk Factors/Clinical Indicators/Treatments Labs: -Urine on 01/16 yellow & cloudy: ur specific gravity - >=1.030 ur protein>=1000 (+)4 urine blood mod 2+ ur leukocyte esterase TRACE H urine WBC >50 -Clean catch urine on 01/16 (+) for E.Col i Please provide further specificity regarding the site, etiology, acuity, and known or suspected organism: * Cystitis * Indicate if acute or chronic * Indicate site such as trigonitis, urethrotrigonitis, or interstitial * Indicate etiology as due to radiation, or other cause * Other (please specify) * Unable to determine site * Indicate known or suspected organism * E-coli * Klebsiella * Jennifer * Other (please specify) * Indicate if associated with hematuria * Indicate if associated with a device, specify if Ashford cath, suprapubic cath, etc. Use of terms such as suspected, likely, concern for, or probable (associated with a specific diagnosis that is being evaluated, monitored, or treated as if it exists) are acceptable and can be coded in the inpatient setting, when documented at the time of discharge. Thank you, Shweta Sutherland MS, RN, CCRN Extension: [phone] Please use your independent medical judgment in providing your response. THIS QUERY IS PART OF THE PERMANENT MEDICAL RECORD Provider Response: Other Other Diagnosis: Acute cystitis
--- NOTE | 2022-01-19 18:18 | MHC.CDI.CONC ---
CDI Concurrent Query Documentation Clarification: PHYSICIAN'S DOCUMENTATION REQUEST Date of Query: 01/19/221818 Patient Name: Kaylyn Cruz Admit Date: 01/15/22 Dear Doctor, A review of the medical record indicates additional documentation may be indicated. Please review below and update the documentation accordingly. Clinical Indicators: Is there a diagnosis that correlates with the findings below: Risk Factors/Clinical Indicators/Treatments Labs: -Urine on 01/16 yellow & cloudy: ur specific gravity - >=1.030 ur protein>=1000 (+)4 urine blood mod 2+ ur leukocyte esterase TRACE H urine WBC >50 -Clean catch urine on 01/16 (+) for E.Coli Please provide further specificity regarding the site, etiology, acuity, and known or suspected organism: Cystitis Indicate if acute or chronic Indicate site such as trigonitis, urethrotrigonitis, or interstitial Indicate etiology as due to radiation, or other cause Other (please specify) Unable to determine site Indicate known or suspected organism E-coli Klebsiella Jennifer Other (please specify) Indicate if associated with hematuria Indicate if associated with a device, specify if Ashford cath, suprapubic cath, etc. Use of terms such as suspected, likely, concern for, or probable (associated with a specific diagnosis that is being evaluated, monitored, or treated as if it exists) are acceptable and can be coded in the inpatient setting, when documented at the time of discharge. Thank you, Shweta Sutherland MS, RN, CCRN Extension: [phone] Please use your independent medical judgment in providing your response. THIS QUERY IS PART OF THE PERMANENT MEDICAL RECORD Provider Response: Other Other Diagnosis: Acute cystitis
--- NOTE | 2022-01-19 18:25 | P.CDIC_ITS ---
CDI Concurrent Query Documentation Clarification: PHYSICIAN'S DOCUMENTATION REQUEST Date of Query: 01/19/22 1150 Patient Name: Kaylyn Cruz Admit Date: 01/15/22 Dear Doctor, A review of the medical record indicates additional documentation may be needed. Please review below and update the documentation accordingly. Clinical Indicators: Is there a diagnosis that correlates with the findings below: Risk Factors/Clinical Indicators/Treatments Labs: -WBC 01/16: 18.4 -Lactic 01/15: 5.8 -Urine on 01/16 yellow & cloudy:? ur specific gravity - >=1.030 ur protein>=1000 (+)4 urine blood mod 2+ ur leukocyte esterase TRACE H? urine WBC >50 -Clean catch urine on 01/16 (+) for E.Col i Other Indicators: -TEMP on 01/16: 100.6 -Ceftriaxone administered Recognized standard criteria for this condition and other infectious definitions includes: Sepsis Systemic manifestations of infection, with 2 or more SIRS criteria which include: * Fever > 100.4?F or hypothermia < 96.8?F * Leukocytosis ? WBC > 12,000 or leukopenia, WBC < 4,000, or > 10% bands * Tachycardia- > 90 beats/minute * Tachypnea- RR > 20 breaths/minute or PaCO2 < 32mmHg Source: Merck Manual 2013 Documentation should include the known or suspected organism, and the underlying infection, such as UTI or pneumonia Severe Sepsis Sepsis with associated acute organ dysfunction, such as renal or respiratory failure Documentation should indicate the association between the sepsis and the organ dysfunction Septic Shock Severe sepsis with associated with circulatory failure, evidenced by hypotension and hypoperfusion Based on the above information and the recognized standard for sepsis, could you please clarify in the Progress Notes if this diagnoses is still accurate and reflective of the patient's condition to ensure quality of the medical record. * Sepsis is/was present and is a clinical diagnosis based on (please include this additional support in the medical record) * After study (the condition) has been ruled out * Other (please specify) * Unable to determine Use of terms such as suspected, likely, concern for, or probable (associated with a specific diagnosis that is being evaluated, monitored, or treated as if it exists) are acceptable and can be coded in the inpatient setting, when documented at the time of discharge. Thank you, Shweta Sutherland MS, RN, CCRN Extension: [phone] Please use your independent medical judgment in providing your response. THIS QUERY IS PART OF THE PERMANENT MEDICAL RECORD Provider Response: Other Other Diagnosis: Sepsis is not a clinical diagnosis
[2022-01-19 19:16] VITALS: BP 143/76; PULSE 86; RESP 17; TEMP 36.8; O2SAT 90
[2022-01-19 20:25] LABS: Glucose, Whole Blood 404 mg/dL (60-115)
[2022-01-19 20:34] LABS: Glucose, Whole Blood 367 mg/dL (60-115)
[2022-01-19] MEDS: Prazosin HCL 1 MG CAPSULE 3 MG PO (21:00)
[2022-01-19 23:40] VITALS: BP 128/68; PULSE 84; RESP 20; TEMP 36.2; O2SAT 92
[2022-01-20] VITALS (7 sets, daily range): BP systolic 145–186; BP diastolic 64–88; PULSE 78–88; RESP 17–20; TEMP 36.4–36.9; O2SAT 92–99
--- NOTE | 2022-01-20 04:09 | PC.NURSE ---
2100 Med pass originally documented under day shift nurse;this RN reported to bottoming room supervisor Med pass documentation updated manually.
[2022-01-20 06:45] LABS: MANUAL DIFF FLAG NO
[2022-01-20 06:51] LABS: Basophils Absolute Auto 0.1 X10*3/uL (0.0-0.2); Basophils Percent Auto 0.6 % (0-2); Eosinophils Absolute Auto 0.1 X10*3/uL (0.0-0.4); Eosinophils Percent Auto 0.9 % (0-4); Hemoglobin 12.5 g/dl (12.0-16.0); Imm Gran Abs Auto 0.06 X10*3/uL (0.00-0.03); Imm Gran Pct Auto 0.4 % (0.0-0.4); Lymphocytes Absolute Auto 3.1 X10*3/uL (1.2-4.9); Lymphocytes Percent Auto 21.4 % (20-40); Mean Corpuscular HGB Conc 32.9 g/dl (31.0-35.0); Mean Corpuscular Hemoglobin 27.5 pg (27.0-33.0); Mean Corpuscular Volume 83.7 fL (80.0-98.0); Mean Platelet Volume 11.9 fL (9.4-12.3); Monocytes Absolute Auto 0.7 X10*3/uL (0.1-1.2); Monocytes Percent Auto 5.1 % (2-11); Neutrophils Absolute Auto 10.3 x10*3/uL (2.0-8.3); Neutrophils Percent Auto 71.6 % (45-73); Platelet Count 252 X10*3/uL (160-400); Red Blood Count 4.54 X10*6/uL (4.20-5.50); Red Cell Distribution Width 15.5 % (11.0-16.0); White Blood Count 14.4 X10*3/uL (4.8-10.8)
[2022-01-20 07:21] LABS: Alanine Aminotransferase 18 U/L (0-31); Albumin Level 3.8 g/dL (3.5-5.0); Alkaline Phosphatase 90 U/L (39-117); Anion Gap 20 (12-20); Aspartate Amino Transferase 32 U/L (5-31); Bilirubin Total 0.7 mg/dL (0.0-1.0); Blood Urea Nitrogen 41 mg/dL (9-16); Calcium 9.2 mg/dL (8.4-10.2); Carbon Dioxide 26 mmol/L (22-29); Chloride 100 mmol/L (96-108); Creatinine Clr Calc Pharmacy 51.1; Estimated Glomerular Filt Rate 38; Glucose Fasting 329 mg/dL (60-99); Potassium 4.4 mmol/L (3.3-5.1); Sodium 142 mmol/L (135-145); Total Protein 7.2 g/dL (6.5-8.0)
[2022-01-20 07:36] LABS: Glucose, Whole Blood 299 mg/dL (60-115)
[2022-01-20] MEDS: Insulin Lispro 100 UNIT/ML 3 ML VIAL SUBCUT ×4 (07:43→21:53)
[2022-01-20] MEDS: 0.9 % Sodium Chloride Flush 3 ML SYRINGE IVFLUSH ×3 (07:44→20:01)
[2022-01-20] MEDS: Acetaminophen 325 MG TABLET 650 MG PO (09:33)
[2022-01-20] MEDS: Lactated Ringers 1,000 ML 100 ML IVCONT (09:33)
[2022-01-20] MEDS: Atorvastatin Calcium 20 MG TABLET PO (09:34)
[2022-01-20] MEDS: methADONE HCl 20 MG/2 ML ORAL.CONC 30 MG PO (09:34)
[2022-01-20] MEDS: amLODIPine Besylate 10 MG TABLET PO (09:34)
[2022-01-20] MEDS: lisinopriL 10 MG TABLET 30 MG PO (09:34)
[2022-01-20 11:02] LABS: Glucose, Whole Blood 262 mg/dL (60-115)
[2022-01-20] MEDS: cefTRIAXone sodium 1 GM in 0.9 % Sodium Chloride 50 ML IV (12:00)
[2022-01-20] MEDS: Enoxaparin Sodium 40 MG/0.4 ML SYRINGE SUBCUT (12:01)
--- NOTE | 2022-01-20 14:59 | P.PNIM_ITS ---
Subjective Subjective Date of Service: 01/20/22 Interval History: No improvement in cognition overnight Review of Systems Unable to obtain Physical Exam Vital Signs: Vital Signs: Last Vital Signs Temp 98.5 F 01/20/22 11:32 Pulse 78 01/20/22 11:32 Resp 18 01/20/22 11:32 BP 145/75 H 01/20/22 11:32 Pulse Ox 99 01/20/22 11:32 O2 Del Method 01/20/22 11:32 O2 Flow Rate 3 01/15/22 12:36 BMI result Body Mass Index 35.0 Const: Other: Awake nonverbal Resp: Other: Clear to auscultation bilaterally no rales rhonchi or wheezes Cardio: Other: No S4; positive S1-S2; no S3 murmurs rubs or gallops GI: Other: Soft nontender nondistended normoactive bowel sounds Neuro: Other: Appears to move all extremities with equal power. Limited exam Extrem: Other: No edema bilaterally Objective Data Active Medications Acetaminophen (Acetaminophen 325 Mg Tablet) 650 mg PO Q6H PRN PRN Reason: Pain, Mild (Pain Scale 1-3) Last Admin: 01/20/22 09:33 Dose: 650 mg Documented By: TAYLOR Amlodipine Besylate (Amlodipine Besylate 10 Mg Tablet) 10 mg PO DAILY [facility]; Protocol Last Admin: 01/20/22 09:34 Dose: 10 mg Documented By: TAYLOR Atorvastatin Calcium (Atorvastatin Calcium 20 Mg Tablet) 20 mg PO DAILY [facility] Last Admin: 01/20/22 09:34 Dose: 20 mg Documented By: TAYLOR Enoxaparin Sodium (Enoxaparin Sodium 40 Mg/0.4 Ml Syringe) 40 mg SUBCUT Q24H [facility] Last Admin: 01/20/22 12:01 Dose: 40 mg Documented By: TAYLOR Ceftriaxone Sodium 1 gm/ (Sodium Chloride) 50 mls @ 100 mls/hr IV Q24H [facility] Last Infusion: 01/20/22 13:25 Dose: 100 mls/hr Documented By: TAYLOR Lactated Ringer's (Lr) 1,000 mls @ 100 mls/hr IVCONT .Q10H [facility] Last Admin: 01/20/22 09:33 Dose: 100 mls/hr Documented By: TAYLOR Insulin Human Lispro (Insulin Lispro 100 Unit/Ml 3 Ml Vial) 0 unit SUBCUT QIDACHS [facility]; Protocol Last Admin: 01/20/22 12:01 Dose: 6 unit Documented By: TAYLOR Lisinopril (Lisinopril 10 Mg Tablet) 30 mg PO DAILY [facility]; Protocol Last Admin: 01/20/22 09:34 Dose: 30 mg Documented By: TAYLOR Methadone HCl (Methadone Hcl 20 Mg/2 Ml Oral.Conc) 10 mg PO DAILY PRN PRN Reason: Opiate Withdrawal Methadone HCl (Methadone Hcl 20 Mg/2 Ml Oral.Conc) 30 mg PO DAILY [facility] Last Admin: 01/20/22 09:34 Dose: 30 mg Documented By: TAYLOR Ondansetron HCl (Ondansetron Hcl 4 Mg/2 Ml Vial) 4 mg IVPUSH Q8H PRN PRN Reason: Nausea and Vomiting Prazosin HCl (Prazosin Hcl 1 Mg Capsule) 3 mg PO BEDTIME [facility]; Protocol Last Admin: 01/19/22 21:00 Dose: 3 mg Sodium Chloride (0.9 % Sodium Chloride Flush 3 Ml Syringe) [facility] Last Admin: 01/20/22 07:44 Dose: 3 ml Documented By: TAYLOR Labs CBC & Chem 7: 01/20/22 06:13 01/20/22 06:13 Labs: Laboratory Results - last 24 hr 01/19/22 01/19/22 01/19/22 15:17 19:25 20:31 MCV MCH MCHC RDW Plt Count MPV Immature Gran % (Auto) Neut % (Auto) Lymph % (Auto) Dixon % (Auto) Eos % (Auto) Baso % (Auto) Lymph # (Auto) Dixon # (Auto) Eos # (Auto) Baso # (Auto) Abs Immat Gran (auto) Absolute Neuts (auto) Absolute Nucleated RBC Nucleated RBC % (auto) Anion Gap Estim Creat Clear Calc Estimated GFR POC Glucose 321 H 404 H* 367 H* Fasting Glucose Calcium Total Bilirubin AST ALT Alkaline Phosphatase Total Protein Albumin 01/20/22 01/20/22 01/20/22 06:13 06:13 07:20 MCV 83.7 MCH 27.5 MCHC 32.9 RDW 15.5 Plt Count 252 MPV 11.9 Immature Gran % (Auto) 0.4 Neut % (Auto) 71.6 Lymph % (Auto) 21.4 Dixon % (Auto) 5.1 Eos % (Auto) 0.9 Baso % (Auto) 0.6 Lymph # (Auto) 3.1 Dixon # (Auto) 0.7 Eos # (Auto) 0.1 Baso # (Auto) 0.1 Abs Immat Gran (auto) 0.06 H Absolute Neuts (auto) 10.3 H Absolute Nucleated RBC 0.000 Nucleated RBC % (auto) 0.0 Anion Gap 20 Estim Creat Clear Calc 51.1 Estimated GFR 38 POC Glucose 299 H Fasting Glucose 329 H Calcium 9.2 Total Bilirubin 0.7 AST 32 H D ALT 18 Alkaline Phosphatase 90 Total Protein 7.2 Albumin 3.8 01/20/22 10:53 MCV MCH MCHC RDW Plt Count MPV Immature Gran % (Auto) Neut % (Auto) Lymph % (Auto) Dixon % (Auto) Eos % (Auto) Baso % (Auto) Lymph # (Auto) Dixon # (Auto) Eos # (Auto) Baso # (Auto) Abs Immat Gran (auto) Absolute Neuts (auto) Absolute Nucleated RBC Nucleated RBC % (auto) Anion Gap Estim Creat Clear Calc Estimated GFR POC Glucose 262 H Fasting Glucose Calcium Total Bilirubin AST ALT Alkaline Phosphatase Total Protein Albumin Assessment and Plan (1) Toxic metabolic encephalopathy: Status: Acute (2) UTI (urinary tract infection): Status: Acute (3) Diabetes: Status: Acute Plan 57 yo F with multiple medical issues and multiple prior similar presentations who again arrives with suspected overdose (pt states accidental, not on purpose) with opiates; found down at home; unknown down time 1. Acute toxic/metabolic encephalopathy due to suspected accidental opiate overdose -currently presents like anoxic brain injury.... No appreciable improvement overnight. -speech eval noted; diet changed -EEG CONSISTENT WITH A MARKEDLY ABNORMAL PATTERN SEVERE DIFFUSE DELTA SLOWING CONSISTENT WITH A DIFFUSE ENCEPHALOPATHIC PROCESS. NO EPILEPTIFORM DISCHARGES WERE SEEN 2. DANY with hyperkalemia -resolving with volume repletion -follow renals/divalents 3. DM -lispro correctional scale now that taking po,s -adjust as indicated 4.Uncontrolled HTN -improved with addition of hydralazine 10 mg t.i.d. (worsening renal function) -adjust as indication 5.UTI(EColi) -ceftriaxone Lovenox Full code Pt requires continued hospitailzation as she remains encephalopathic beyond her baseline. Work up for this is in process and she is not ready for discharge. Quality Stroke Does the patient have a stroke diagnosis?: No VTE Prior VTE?: No VTE Risk Level:: Medical - moderate - high VTE Device Contraindication: Treatment Not Indicated VTE Drug Contraindication: N/A - Med Ordered
[2022-01-20 15:28] LABS: Glucose, Whole Blood 195 mg/dL (60-115)
[2022-01-20 16:26] LABS: Glucose, Whole Blood 216 mg/dL (60-115)
[2022-01-20] MEDS: Prazosin HCL 1 MG CAPSULE 3 MG PO (20:07)
[2022-01-20 21:33] LABS: Glucose, Whole Blood 260 mg/dL (60-115)
[2022-01-21 03:14] VITALS: BP 160/72; PULSE 82; RESP 20; TEMP 36.3; O2SAT 93
[2022-01-21] MEDS: Lactated Ringers 1,000 ML 100 ML IVCONT (05:09)
[2022-01-21 06:28] LABS: Basophils Absolute Auto 0.1 X10*3/uL (0.0-0.2); Basophils Percent Auto 0.5 % (0-2); Eosinophils Absolute Auto 0.1 X10*3/uL (0.0-0.4); Eosinophils Percent Auto 0.8 % (0-4); Hematocrit 37.5 % (37.0-47.0); Hemoglobin 12.3 g/dl (12.0-16.0); Imm Gran Abs Auto 0.18 X10*3/uL (0.00-0.03); Imm Gran Pct Auto 1.1 % (0.0-0.4); Lymphocytes Absolute Auto 3.6 X10*3/uL (1.2-4.9); MANUAL DIFF FLAG NO; Mean Corpuscular HGB Conc 32.8 g/dl (31.0-35.0); Mean Corpuscular Hemoglobin 27.8 pg (27.0-33.0); Mean Corpuscular Volume 84.7 fL (80.0-98.0); Mean Platelet Volume 11.5 fL (9.4-12.3); Monocytes Absolute Auto 0.8 X10*3/uL (0.1-1.2); Monocytes Percent Auto 4.9 % (2-11); Neutrophils Absolute Auto 11.5 x10*3/uL (2.0-8.3); Neutrophils Percent Auto 70.7 % (45-73); Platelet Count 278 X10*3/uL (160-400); Red Blood Count 4.43 X10*6/uL (4.20-5.50); Red Cell Distribution Width 15.3 % (11.0-16.0); White Blood Count 16.2 X10*3/uL (4.8-10.8)
[2022-01-21 06:44] LABS: Alanine Aminotransferase 17 U/L (0-31); Albumin Level 3.9 g/dL (3.5-5.0); Alkaline Phosphatase 90 U/L (39-117); Anion Gap 19 (12-20); Aspartate Amino Transferase 18 U/L (5-31); Bilirubin Total 0.8 mg/dL (0.0-1.0); Blood Urea Nitrogen 33 mg/dL (9-16); Calcium 9.2 mg/dL (8.4-10.2); Carbon Dioxide 27 mmol/L (22-29); Chloride 100 mmol/L (96-108); Creatinine Clr Calc Pharmacy 60.9; Estimated Glomerular Filt Rate 47; Glucose Fasting 277 mg/dL (60-99); Potassium 4.1 mmol/L (3.3-5.1); Sodium 142 mmol/L (135-145); Total Protein 6.8 g/dL (6.5-8.0)
[2022-01-21 07:22] LABS: Glucose, Whole Blood 246 mg/dL (60-115)
[2022-01-21] MEDS: Acetaminophen 325 MG TABLET 650 MG PO ×2 (07:26→15:18)
[2022-01-21] MEDS: Insulin Lispro 100 UNIT/ML 3 ML VIAL SUBCUT ×3 (07:27→19:55)
[2022-01-21] MEDS: 0.9 % Sodium Chloride Flush 3 ML SYRINGE IVFLUSH ×2 (07:28→20:01)
[2022-01-21 08:00] VITALS: BP 166/87; PULSE 79; RESP 18; TEMP 36.9; O2SAT 94
[2022-01-21] MEDS: Atorvastatin Calcium 20 MG TABLET PO (09:52)
[2022-01-21] MEDS: lisinopriL 10 MG TABLET 30 MG PO (09:52)
[2022-01-21] MEDS: amLODIPine Besylate 10 MG TABLET PO (09:52)
[2022-01-21] MEDS: methADONE HCl 20 MG/2 ML ORAL.CONC 30 MG PO (09:52)
[2022-01-21] MEDS: Enoxaparin Sodium 40 MG/0.4 ML SYRINGE SUBCUT (10:00)
[2022-01-21 11:58] LABS: Glucose, Whole Blood 309 mg/dL (60-115)
[2022-01-21 12:00] VITALS: BP 175/82; PULSE 80; RESP 20; TEMP 37.4; O2SAT 93
[2022-01-21] MEDS: cefTRIAXone sodium 1 GM in 0.9 % Sodium Chloride 50 ML IV (12:07)
--- NOTE | 2022-01-21 13:47 | HO.PM.IMPN ---
Subjective Subjective Date of Service: 01/21/22 Interval History: nonverbal but follows simple commands Review of Systems Review of Systems: Yes Unobtainable due to mental status Physical Exam Vital Signs: Vital Signs: Last Vital Signs Temp 99.3 F 01/21/22 12:00 Pulse 80 01/21/22 12:00 Resp 20 01/21/22 12:00 BP 175/82 H 01/21/22 12:00 Pulse Ox 93 01/21/22 12:00 O2 Del Method 01/21/22 12:00 O2 Flow Rate 3 01/15/22 12:36 BMI result Body Mass Index 35.0 Gen: awake, nonverbal HEENT: sclera anicteric, moist mucus membranes Neck: supple Lungs: clear to auscultation bilaterally Heart: regular rate and rhythm, no murmurs Abd: soft, non-tender, non-distended Ext: no edema Skin: warm/well-perfused Neuro: alert, nonverbal, unable to assess orientation, follows simple commands Psych: impaired insight Objective Data Active Medications Acetaminophen (Acetaminophen 325 Mg Tablet) 650 mg PO Q6H PRN PRN Reason: Pain, Mild (Pain Scale 1-3) Last Admin: 01/21/22 07:26 Dose: 650 mg Documented By: TAYLOR Amlodipine Besylate (Amlodipine Besylate 10 Mg Tablet) 10 mg PO DAILY [facility]; Protocol Last Admin: 01/21/22 09:52 Dose: 10 mg Documented By: TAYLOR Atorvastatin Calcium (Atorvastatin Calcium 20 Mg Tablet) 20 mg PO DAILY [facility] Last Admin: 01/21/22 09:52 Dose: 20 mg Documented By: TAYLOR Enoxaparin Sodium (Enoxaparin Sodium 40 Mg/0.4 Ml Syringe) 40 mg SUBCUT Q24H [facility] Last Admin: 01/21/22 10:00 Dose: 40 mg Documented By: TAYLOR Ceftriaxone Sodium 1 gm/ (Sodium Chloride) 50 mls @ 100 mls/hr IV Q24H [facility] Last Infusion: 01/21/22 13:28 Dose: 100 mls/hr Documented By: TAYLOR Insulin Human Lispro (Insulin Lispro 100 Unit/Ml 3 Ml Vial) 0 unit SUBCUT QIDACHS [facility]; Protocol Last Admin: 01/21/22 12:08 Dose: 8 unit Documented By: TAYLOR Lisinopril (Lisinopril 10 Mg Tablet) 30 mg PO DAILY [facility]; Protocol Last Admin: 01/21/22 09:52 Dose: 30 mg Documented By: TAYLOR Methadone HCl (Methadone Hcl 20 Mg/2 Ml Oral.Conc) 10 mg PO DAILY PRN PRN Reason: Opiate Withdrawal Methadone HCl (Methadone Hcl 20 Mg/2 Ml Oral.Conc) 30 mg PO DAILY [facility] Last Admin: 01/21/22 09:52 Dose: 30 mg Documented By: TAYLOR Ondansetron HCl (Ondansetron Hcl 4 Mg/2 Ml Vial) 4 mg IVPUSH Q8H PRN PRN Reason: Nausea and Vomiting Prazosin HCl (Prazosin Hcl 1 Mg Capsule) 3 mg PO BEDTIME [facility]; Protocol Last Admin: 01/20/22 20:07 Dose: 3 mg Documented By: PATRICIA Sodium Chloride (0.9 % Sodium Chloride Flush 3 Ml Syringe) 3 ml IVFLUSH QSHIFT [facility] Last Admin: 01/21/22 07:28 Dose: 3 ml Documented By: TAYLOR Labs CBC & Chem 7: 01/21/22 05:55 01/21/22 05:55 Labs: Laboratory Results - last 24 hr 01/20/22 01/20/22 01/20/22 15:15 16:22 21:29 MCV MCH MCHC RDW Plt Count MPV Immature Gran % (Auto) Neut % (Auto) Lymph % (Auto) [place] % (Auto) Eos % (Auto) Baso % (Auto) Lymph # (Auto) [place] # (Auto) Eos # (Auto) Baso # (Auto) Abs Immat Gran (auto) Absolute Neuts (auto) Absolute Nucleated RBC Nucleated RBC % (auto) Anion Gap Estim Creat Clear Calc Estimated GFR POC Glucose 195 H 216 H 260 H Fasting Glucose Calcium Total Bilirubin AST ALT Alkaline Phosphatase Total Protein Albumin 01/21/22 01/21/22 01/21/22 05:55 05:55 07:18 MCV 84.7 MCH 27.8 MCHC 32.8 RDW 15.3 Plt Count 278 MPV 11.5 Immature Gran % (Auto) 1.1 H Neut % (Auto) 70.7 Lymph % (Auto) 22.0 [place] % (Auto) 4.9 Eos % (Auto) 0.8 Baso % (Auto) 0.5 Lymph # (Auto) 3.6 [place] # (Auto) 0.8 Eos # (Auto) 0.1 Baso # (Auto) 0.1 Abs Immat Gran (auto) 0.18 H Absolute Neuts (auto) 11.5 H Absolute Nucleated RBC 0.000 Nucleated RBC % (auto) 0.0 Anion Gap 19 Estim Creat Clear Calc 60.9 Estimated GFR 47 POC Glucose 246 H Fasting Glucose 277 H Calcium 9.2 Total Bilirubin 0.8 AST 18 D ALT 17 Alkaline Phosphatase 90 Total Protein 6.8 Albumin 3.9 01/21/22 11:25 MCV MCH MCHC RDW Plt Count MPV Immature Gran % (Auto) Neut % (Auto) Lymph % (Auto) [place] % (Auto) Eos % (Auto) Baso % (Auto) Lymph # (Auto) [place] # (Auto) Eos # (Auto) Baso # (Auto) Abs Immat Gran (auto) Absolute Neuts (auto) Absolute Nucleated RBC Nucleated RBC % (auto) Anion Gap Estim Creat Clear Calc Estimated GFR POC Glucose 309 H Fasting Glucose Calcium Total Bilirubin AST ALT Alkaline Phosphatase Total Protein Albumin Microbiology Microbiology Results: Microbiology 01/16/22 10:18 Blood Culture - Final Blood - Venous No growth after 5 days. 01/16/22 10:14 Blood Culture - Final Blood - Venous No growth after 5 days. Assessment and Plan (1) Toxic metabolic encephalopathy: Status: Acute (2) UTI (urinary tract infection): Status: Acute (3) Diabetes: Status: Acute Plan d#7 57yo F with multiple medical issues and multiple prior similar presentations who again arrives with suspected overdose (pt states accidental, not on purpose) with opiates; found down at home; unknown down time # Acute toxic/metabolic encephalopathy due to suspected accidental opiate overdose - currently presents like anoxic brain injury with no appreciable improvement - EEG CONSISTENT WITH A MARKEDLY ABNORMAL PATTERN SEVERE DIFFUSE DELTA SLOWING CONSISTENT WITH A DIFFUSE ENCEPHALOPATHIC PROCESS. NO EPILEPTIFORM DISCHARGES WERE SEEN - REAL ESTATE SUBAGENT: NDD1 solids, thin liquids # DANY with hyperkalemia - resolved with volume repletion # UTI, peters-sensitive E coli - ceftriaxone d#6 # HTN - lisinopril, amlodipine # DM2 - correction-dose lispro # OUD - Addiction Medicine consulted, prn methadone # VTE ppx: LMWH In my clinical judgment, the patient requires continued inpatient hospitalization for the following reasons: encephalopathy Quality Stroke Does the patient have a stroke diagnosis?: No VTE Prior VTE?: No VTE Risk Level:: Medical - moderate - high VTE Device Contraindication: Treatment Not Indicated VTE Drug Contraindication: N/A - Med Ordered
[2022-01-21 16:00] VITALS: BP 130/63; PULSE 75; RESP 16; TEMP 36.4; O2SAT 91
--- NOTE | 2022-01-21 16:08 | PM.EVENT ---
Event Note Date of Service: 01/21/22 Event Note: called by RN for concern of abd distension pt appears uncomfortable abd firm, supra-umbilical mass measuring at least 8 cm -?hernia pt nonverbal will obtain stat CT A/P and make NPO for now
[2022-01-21 16:18] LABS: Glucose, Whole Blood 211 mg/dL (60-115)
[2022-01-21] MEDS: iohexoL 350 MG/ML 100 ML INFUS..BTL IV (17:57)
[2022-01-21] MEDS: Prazosin HCL 1 MG CAPSULE 3 MG PO (19:54)
[2022-01-21 20:00] VITALS: BP 189/117; PULSE 90; RESP 17; TEMP 36.5; O2SAT 96
[2022-01-21 21:16] LABS: Glucose, Whole Blood 220 mg/dL (60-115)
[2022-01-21 23:21] VITALS: BP 123/67; PULSE 73; RESP 18; TEMP 36.1; O2SAT 96
[2022-01-22 03:15] VITALS: BP 140/60; PULSE 76; RESP 18; TEMP 37.5; O2SAT 95
[2022-01-22 06:24] LABS: Hematocrit 38.3 % (37.0-47.0); Hemoglobin 12.2 g/dl (12.0-16.0); Mean Corpuscular HGB Conc 31.9 g/dl (31.0-35.0); Mean Corpuscular Hemoglobin 26.9 pg (27.0-33.0); Mean Corpuscular Volume 84.5 fL (80.0-98.0); Mean Platelet Volume 11.4 fL (9.4-12.3); Platelet Count 283 X10*3/uL (160-400); Red Blood Count 4.53 X10*6/uL (4.20-5.50); Red Cell Distribution Width 15.3 % (11.0-16.0); White Blood Count 18.2 X10*3/uL (4.8-10.8)
[2022-01-22 07:00] LABS: Anion Gap 18 (12-20); Blood Urea Nitrogen 27 mg/dL (9-16); Calcium 9.2 mg/dL (8.4-10.2); Carbon Dioxide 27 mmol/L (22-29); Chloride 98 mmol/L (96-108); Creatinine Clr Calc Pharmacy 63.1; Estimated Glomerular Filt Rate 48; Glucose Random 288 mg/dL (60-115); Potassium 4.3 mmol/L (3.3-5.1); Sodium 139 mmol/L (135-145)
[2022-01-22 07:23] VITALS: BP 140/92; PULSE 75; RESP 22; TEMP 36.1; O2SAT 96
[2022-01-22 07:37] LABS: Glucose, Whole Blood 284 mg/dL (60-115)
[2022-01-22] MEDS: methADONE HCl 20 MG/2 ML ORAL.CONC 30 MG PO (08:39)
[2022-01-22] MEDS: 0.9 % Sodium Chloride Flush 3 ML SYRINGE IVFLUSH ×3 (08:39→21:08)
[2022-01-22 08:40] LABS: HBc Num1 0.12 S/CO (0.00-0.79); HBsAGNum1 0.16 S/CO (0.00-0.99); HIV AB/AG Nonreactive (Nonreactive); HIV Num 1 0.07 S/CO (0.00-0.99); Hepatitis B Core Antibody Nonreactive (Nonreactive); Hepatitis B Surface Antigen Negative (Negative)
[2022-01-22] MEDS: amLODIPine Besylate 10 MG TABLET PO (08:40)
[2022-01-22] MEDS: lisinopriL 10 MG TABLET 30 MG PO (08:40)
[2022-01-22] MEDS: Atorvastatin Calcium 20 MG TABLET PO (08:40)
[2022-01-22] MEDS: Insulin Lispro 100 UNIT/ML 3 ML VIAL SUBCUT ×4 (08:40→21:08)
[2022-01-22 08:53] LABS: Procalcitonin 0.07 ng/mL
[2022-01-22 09:06] LABS: HBS Num1 3.04 mIU/mL (0-7.99); ~Hepatitis B Surface Antibody NONREACTIVE (Nonreactive)
--- NOTE | 2022-01-22 10:14 | P.CDIC_ITS ---
CDI Concurrent Query Documentation Clarification: PHYSICIAN'S DOCUMENTATION REQUEST Date of Query: 01/22/22 1014 Patient Name: Kaylyn Cruz Admit Date: 01/15/22 Dear Doctor, A review of the medical record indicates additional documentation may be needed. Please review below and update the documentation accordingly. Clinical Indicators: Is there a diagnosis that correlates with the findings below: Risk Factors/Clinical Indicators/Treatments BMI: 35.0 HEIGHT: 5ft 6in WEIGHT:98.4kg If possible, please provide an associated diagnosis related to the abnormal BMI, such as: BMI: * Severe or Morbid Obesity * Obesity * Due to excess calories * Drug induced * Due to other cause * With alveolar hypoventilation * Without alveolar hypoventilation Or: * BMI is not significant * Other (please specify) * Unable to determine Use of terms such as suspected, likely, concern for, or probable (associated with a specific diagnosis that is being evaluated, monitored, or treated as if it exists) are acceptable and can be coded in the inpatient setting, when documented at the time of discharge. Thank you, Shweta Sutherland MS, RN, CCRN Extension: [phone] Please use your independent medical judgment in providing your response. THIS QUERY IS PART OF THE PERMANENT MEDICAL RECORD Provider Response: Other Other Diagnosis: nonmorbid obesity
[2022-01-22 10:36] LABS: C Reactive Protein 4.85 mg/dL (< or = 0.50)
[2022-01-22 11:25] LABS: Glucose, Whole Blood 253 mg/dL (60-115)
[2022-01-22 11:40] VITALS: BP 152/80; PULSE 78; RESP 20; TEMP 36.6; O2SAT 95
--- NOTE | 2022-01-22 11:47 | HO.PM.IMPN ---
Subjective Subjective Date of Service: 01/22/22 Interval History: remains nonverbal non ambulatory unable to obtain ROS Review of Systems Review of Systems: Yes Unobtainable due to mental status Physical Exam Vital Signs: Vital Signs: Last Vital Signs Temp 97.8 F 01/22/22 11:40 Pulse 78 01/22/22 11:40 Resp 20 01/22/22 11:40 BP 152/80 H 01/22/22 11:40 Pulse Ox 95 01/22/22 11:40 O2 Del Method 01/22/22 11:40 O2 Flow Rate 3 01/15/22 12:36 BMI result Body Mass Index 35.0 Gen: awake, nonverbal HEENT: sclera anicteric, moist mucus membranes Neck: supple Lungs: clear to auscultation bilaterally Heart: regular rate and rhythm, no murmurs Abd: soft, non-tender, non-distended Ext: no edema Skin: warm/well-perfused Neuro: alert, nonverbal, unable to assess orientation, follows simple commands Psych: impaired insight Objective Data Active Medications Acetaminophen (Acetaminophen 325 Mg Tablet) 650 mg PO Q6H PRN PRN Reason: Pain, Mild (Pain Scale 1-3) Last Admin: 01/21/22 15:18 Dose: 650 mg Documented By: TAYLOR Amlodipine Besylate (Amlodipine Besylate 10 Mg Tablet) 10 mg PO DAILY [facility]; Protocol Last Admin: 01/22/22 08:40 Dose: 10 mg Documented By: MADY Atorvastatin Calcium (Atorvastatin Calcium 20 Mg Tablet) 20 mg PO DAILY [facility] Last Admin: 01/22/22 08:40 Dose: 20 mg Documented By: MADY Enoxaparin Sodium (Enoxaparin Sodium 40 Mg/0.4 Ml Syringe) 40 mg SUBCUT Q24H [facility] Last Admin: 01/21/22 10:00 Dose: 40 mg Documented By: TAYLOR Ceftriaxone Sodium 1 gm/ (Sodium Chloride) 50 mls @ 100 mls/hr IV Q24H [facility] Last Infusion: 01/21/22 13:28 Dose: 100 mls/hr Documented By: TAYLOR Insulin Human Lispro (Insulin Lispro 100 Unit/Ml 3 Ml Vial) 0 unit SUBCUT QIDACHS [facility]; Protocol Last Admin: 01/22/22 08:40 Dose: 6 unit Documented By: MADY Lisinopril (Lisinopril 10 Mg Tablet) 30 mg PO DAILY [facility]; Protocol Last Admin: 01/22/22 08:40 Dose: 30 mg Documented By: MADY Methadone HCl (Methadone Hcl 20 Mg/2 Ml Oral.Conc) 10 mg PO DAILY PRN PRN Reason: Opiate Withdrawal Methadone HCl (Methadone Hcl 20 Mg/2 Ml Oral.Conc) 30 mg PO DAILY [facility] Last Admin: 01/22/22 08:39 Dose: 30 mg Documented By: MADY Ondansetron HCl (Ondansetron Hcl 4 Mg/2 Ml Vial) 4 mg IVPUSH Q8H PRN PRN Reason: Nausea and Vomiting Prazosin HCl (Prazosin Hcl 1 Mg Capsule) 3 mg PO BEDTIME [facility]; Protocol Last Admin: 01/21/22 19:54 Dose: 3 mg Documented By: PATRICIA Sodium Chloride (0.9 % Sodium Chloride Flush 3 Ml Syringe) 3 ml IVFLUSH QSHIFT [facility] Last Admin: 01/22/22 08:39 Dose: 3 ml Documented By: MADY Labs CBC & Chem 7: 01/22/22 06:11 01/22/22 06:11 Labs: Laboratory Results - last 24 hr 01/21/22 01/21/22 01/21/22 11:25 15:55 19:48 MCV MCH MCHC RDW Plt Count MPV Absolute Nucleated RBC Nucleated RBC % (auto) Anion Gap Estim Creat Clear Calc Estimated GFR POC Glucose 309 H 211 H 220 H Random Glucose Calcium C-Reactive Protein Procalcitonin Hep Bs Antigen Hep Bs Antibody Hep B Core Total Ab HIV 1&2 Ab/P24 Ag 4thGn 01/22/22 01/22/22 01/22/22 06:11 06:11 06:11 MCV 84.5 MCH 26.9 L MCHC 31.9 RDW 15.3 Plt Count 283 MPV 11.4 Absolute Nucleated RBC 0.000 Nucleated RBC % (auto) 0.0 Anion Gap 18 Estim Creat Clear Calc 63.1 Estimated GFR 48 POC Glucose Random Glucose 288 H Calcium 9.2 C-Reactive Protein 4.85 H Procalcitonin Hep Bs Antigen Negative Hep Bs Antibody NONREACTIVE Hep B Core Total Ab Nonreactive HIV 1&2 Ab/P24 Ag 4thGn Nonreactive 01/22/22 01/22/22 01/22/22 06:11 07:32 11:18 MCV MCH MCHC RDW Plt Count MPV Absolute Nucleated RBC Nucleated RBC % (auto) Anion Gap Estim Creat Clear Calc Estimated GFR POC Glucose 284 H 253 H Random Glucose Calcium C-Reactive Protein Procalcitonin 0.07 Hep Bs Antigen Hep Bs Antibody Hep B Core Total Ab HIV 1&2 Ab/P24 Ag 4thGn Impressions Abdomen/Pelvis CT 01/21/22 18:08 IMPRESSION: 1. No CT evidence of acute intra-abdominal process to explain patient's pain symptoms. 2. Postsurgical changes in the cecum probably prior appendectomy. No CT evidence of dehiscence. 3. Other noncritical findings described above are stable. Microbiology Microbiology Results: Microbiology 01/16/22 10:18 Blood Culture - Final Blood - Venous No growth after 5 days. 01/16/22 10:14 Blood Culture - Final Blood - Venous No growth after 5 days. 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 NO EPILEPTIFORM DISCHARGES WERE SEEN - CERTIFIED OPHTHALMIC ASSISTANT: NDD1 solids, thin liquids # DANY with hyperkalemia - resolved with volume repletion # UTI, peters-sensitive E coli - ceftriaxone d#7 # HTN - lisinopril, amlodipine # DM2 - correction-dose lispro # OUD - Addiction Medicine consulted, prn methadone # obesity - non-morbid # VTE ppx: LMWH In my clinical judgment, the patient requires continued inpatient hospitalization for the following reasons: encephalopathy, LTC placement Quality Stroke Does the patient have a stroke diagnosis?: No VTE Prior VTE?: No VTE Risk Level:: Medical - moderate - high VTE Device Contraindication: Treatment Not Indicated VTE Drug Contraindication: N/A - Med Ordered
[2022-01-22] MEDS: Enoxaparin Sodium 40 MG/0.4 ML SYRINGE SUBCUT (12:01)
[2022-01-22] MEDS: cefTRIAXone sodium 1 GM in 0.9 % Sodium Chloride 50 ML IV (12:06)
[2022-01-22 12:27] LABS: ~HepC Num1 0.23 S/CO (0.00-0.79); ~Hepatitis C Antibody Nonreactive (Nonreactive)
--- NOTE | 2022-01-22 12:49 | HO.HCP ---
Health Care Proxy Invocation Health Care Proxy Declaration: Channing Khan, on the date cited below, have determined that, Kaylyn Cruz , lacks the capacity to make or communicate, informed health care decision. This determination is made in accordance with accepted standards of medical judgment and pursuant to [place], the [place] Health Care Proxy Law. The cause, nature, extent and probable duration of the patient's inapacity are described below: Cause: encephalopathy Nature: suspected hypoxic-ischemic Extent: severe Probable Duration of Patient's Incapacity: cannot be determined at this point
--- NOTE | 2022-01-22 13:03 | MHC.CM.PN ---
pt not ready for dc due to encephalopathy and need for tltc placement
--- NOTE | 2022-01-22 15:18 | MHC.CM.PN ---
physical therapy is receommending str referraLs made
[2022-01-22 15:28] VITALS: BP 162/89; PULSE 86; RESP 17; TEMP 36.9; O2SAT 93
--- NOTE | 2022-01-22 15:29 | MHC.SL.SWA ---
Addendum entered and electronically signed by KESHAV Encarnacion 01/23/22 09:08: SW Original Note: Speech Pathologist Impression: Oral Phase Dysphagia Risk of Aspiration Due to: Reduced Cognition Dysphasia Diet Status: No change Liquid Consistency and Strategies for Safe Swallow: Liquid Intake Recommendation: Thin Liquid Intake Strategies: Small Sips Solid Food Consistency: Dietary Recommendations: Pureed (NDD1) Additional Modifications to Solid Foods: Moisten food with sauce/gravy Oral Medication Intake: Crushed with Puree Please contact the pharmacy regarding appropriate crushable or liquid drug formulations that are available whenever modified delivery is recommended. Compensatory Strategies and Precautions to be Taken for Safe Swallow: Sitting Upright (90 deg) Alternate Liquids/Solids Oral Check Avoid Specific Foods Supervision While Eating and Drinking for Safe Swallow: Total Assistance (1:1) Foods to Avoid: Mixed consistencies (e.g. cereal and milk, thin soups with pieces of veg/meat). Sticky foods Swallowing Recommended Treatments: Compens. Strategy Educat. Recommendation for Speech: Inpatient Speech Therapy Comment: Checked in w/ RN and STEAMER BLOCKER who reported pt did not eat much of meals today. Staff report pt was minimally opening mouth upon presentation of spoon; pt required manipulation with spoon to open mouth. Reported anterior bolus loss, prolonged bolus hold, and a lot of cueing to swallow required. Pt seen for bedside dysphagia treatment this afternoon. Pt's vocalizations were limited to moaning. Pt did not attend to clinician or food items with eyes as she has done often in previous visits. Instead, pt looked far off to the left and did not make eye contact with the clinician at all. Pt did not open mouth with verbal cue and minimally opened mouth when presented with a spoon. Clinician assisted pt to open mouth with spoon. Pt accepted limited PO trials; a few bites of 1/4 tsp of puree peach and 1/2 cup water. No overt clinical s/s of aspiration noted. Pt given puree via teaspoon and water via straw and teaspoon. Pt required clinician's support to insert straw. Pt independently swallowed when taking water via straw. When presented with water via teaspoon, pt sipped water from spoon then held bolus in mouth for prolonged time (>30 seconds) before swallowing. Pt also observed to intermittently hold puree bolus in mouth prior to swallowing. Note moderate anterior bolus loss with liquids and purees via teaspoon. Pt able to clear some puree residue off lips with tongue. Recommend PUREE (NDD1) solids and THIN liquids via teaspoon or straw. Introduce teaspoon of liquid to anterior oral cavity and cue pt to sip liquid. Pills to be crushed in puree. Pt requires 1:1 feed and consistent verbal/tactile cues to swallow. Check oral cavity for pocketing. Sips of liquid to help clear solid residue. Pt must be awake and alert for presentation of PO. Hold tray if pt is lethargic, w/ decreased responsiveness. Vice President Medical Affairs Clinican/Clinical Fellow: Yes: Radha Butler M.A., CF-TURN SUPERVISOR Supervisory Statement: I have reviewed and agree with the student/clinical fellow's documentation: Yes Speech Language Pathologist: Bri Stubbs M.A., CCC-TURN SUPERVISOR
[2022-01-22 15:58] LABS: Glucose, Whole Blood 268 mg/dL (60-115)
--- NOTE | 2022-01-22 16:58 | P.PNADD_ITS ---
Subjective Subjective Date of Service: 01/22/22 Reason For Visit: Overdose Review of Systems Patient seen in [facility] Has been receiving methadone 30mg QD. Has not required/been administered PRN dose of 10mg. Plan is for LTC admission from [facility]. Medical Review of Systems: unchanged Mental Status Exam Mental Status Exam Patient Appearance: Appropriate Patient Behavior: Asleep Diagnostics Vital Signs (24Hr): Vital Signs - 24 hr 01/21/22 20:00 01/21/22 23:21 01/22/22 03:15 Temperature 97.7 F 97.0 F 99.5 F Pulse Rate 90 73 76 Respiratory Rate 17 18 18 Blood Pressure 189/117 H 123/67 140/60 H Pulse Oximetry 96 96 95 Oxygen Delivery Method Room Air Room Air Room Air 01/22/22 07:23 01/22/22 11:40 01/22/22 15:28 Temperature 97 F 97.8 F 98.4 F Pulse Rate 75 78 86 Respiratory Rate 22 H 20 17 Blood Pressure 140/92 H 152/80 H 162/89 H Pulse Oximetry 96 95 93 Oxygen Delivery Method Room Air Room Air Room Air BMI result Body Mass Index 35.0 Labs Results: 01/22/22 06:11 01/22/22 06:11 Labs: Laboratory Results - last 48 hr 01/20/22 01/21/22 01/21/22 21:29 05:55 05:55 WBC 16.2 H RBC 4.43 Hgb 12.3 Hct 37.5 MCV 84.7 MCH 27.8 MCHC 32.8 RDW 15.3 Plt Count 278 MPV 11.5 Immature Gran % (Auto) 1.1 H Neut % (Auto) 70.7 Lymph % (Auto) 22.0 [facility] % (Auto) 4.9 Eos % (Auto) 0.8 Baso % (Auto) 0.5 Lymph # (Auto) 3.6 [facility] # (Auto) 0.8 Eos # (Auto) 0.1 Baso # (Auto) 0.1 Abs Immat Gran (auto) 0.18 H Absolute Neuts (auto) 11.5 H Absolute Nucleated RBC 0.000 Nucleated RBC % (auto) 0.0 Sodium 142 Potassium 4.1 Chloride 100 Carbon Dioxide 27 Anion Gap 19 BUN 33 H Creatinine 1.19 Estim Creat Clear Calc 60.9 Estimated GFR 47 POC Glucose 260 H Random Glucose Fasting Glucose 277 H Calcium 9.2 Total Bilirubin 0.8 AST 18 D ALT 17 Alkaline Phosphatase 90 C-Reactive Protein Total Protein 6.8 Albumin 3.9 Procalcitonin Hep Bs Antigen Hep Bs Antibody Hep B Core Total Ab Hepatitis C Ab (EIA) HIV 1&2 Ab/P24 Ag 4thGn 01/21/22 01/21/22 01/21/22 07:18 11:25 15:55 WBC RBC Hgb Hct MCV MCH MCHC RDW Plt Count MPV Immature Gran % (Auto) Neut % (Auto) Lymph % (Auto) [facility] % (Auto) Eos % (Auto) Baso % (Auto) Lymph # (Auto) [facility] # (Auto) Eos # (Auto) Baso # (Auto) Abs Immat Gran (auto) Absolute Neuts (auto) Absolute Nucleated RBC Nucleated RBC % (auto) Sodium Potassium Chloride Carbon Dioxide Anion Gap BUN Creatinine Estim Creat Clear Calc Estimated GFR POC Glucose 246 H 309 H 211 H Random Glucose Fasting Glucose Calcium Total Bilirubin AST ALT Alkaline Phosphatase C-Reactive Protein Total Protein Albumin Procalcitonin Hep Bs Antigen Hep Bs Antibody Hep B Core Total Ab Hepatitis C Ab (EIA) HIV 1&2 Ab/P24 Ag 4thGn 01/21/22 01/22/22 01/22/22 19:48 06:11 06:11 WBC 18.2 H RBC 4.53 Hgb 12.2 Hct 38.3 MCV 84.5 MCH 26.9 L MCHC 31.9 RDW 15.3 Plt Count 283 MPV 11.4 Immature Gran % (Auto) Neut % (Auto) Lymph % (Auto) [facility] % (Auto) Eos % (Auto) Baso % (Auto) Lymph # (Auto) [facility] # (Auto) Eos # (Auto) Baso # (Auto) Abs Immat Gran (auto) Absolute Neuts (auto) Absolute Nucleated RBC 0.000 Nucleated RBC % (auto) 0.0 Sodium 139 Potassium 4.3 Chloride 98 Carbon Dioxide 27 Anion Gap 18 BUN 27 H Creatinine 1.15 Estim Creat Clear Calc 63.1 Estimated GFR 48 POC Glucose 220 H Random Glucose 288 H Fasting Glucose Calcium 9.2 Total Bilirubin AST ALT Alkaline Phosphatase C-Reactive Protein 4.85 H Total Protein Albumin Procalcitonin Hep Bs Antigen Hep Bs Antibody Hep B Core Total Ab Hepatitis C Ab (EIA) HIV 1&2 Ab/P24 Ag 4thGn 1101/22/22 01/22/22 06:11 06:11 06:11 WBC RBC Hgb Hct MCV MCH MCHC RDW Plt Count MPV Immature Gran % (Auto) Neut % (Auto) Lymph % (Auto) [facility] % (Auto) Eos % (Auto) Baso % (Auto) Lymph # (Auto) [facility] # (Auto) Eos # (Auto) Baso # (Auto) Abs Immat Gran (auto) Absolute Neuts (auto) Absolute Nucleated RBC Nucleated RBC % (auto) Sodium Potassium Chloride Carbon Dioxide Anion Gap BUN Creatinine Estim Creat Clear Calc Estimated GFR POC Glucose Random Glucose Fasting Glucose Calcium Total Bilirubin AST ALT Alkaline Phosphatase C-Reactive Protein Total Protein Albumin Procalcitonin 0.07 Hep Bs Antigen Negative Hep Bs Antibody NONREACTIVE Hep B Core Total Ab Nonreactive Hepatitis C Ab (EIA) Nonreactive HIV 1&2 Ab/P24 Ag 4thGn Nonreactive 01/22/22 01/22/22 01/22/22 07:32 11:18 15:54 WBC RBC Hgb Hct MCV MCH MCHC RDW Plt Count MPV Immature Gran % (Auto) Neut % (Auto) Lymph % (Auto) [facility] % (Auto) Eos % (Auto) Baso % (Auto) Lymph # (Auto) [facility] # (Auto) Eos # (Auto) Baso # (Auto) Abs Immat Gran (auto) Absolute Neuts (auto) Absolute Nucleated RBC Nucleated RBC % (auto) Sodium Potassium Chloride Carbon Dioxide Anion Gap BUN Creatinine Estim Creat Clear Calc Estimated GFR POC Glucose 284 H 253 H 268 H Random Glucose Fasting Glucose Calcium Total Bilirubin AST ALT Alkaline Phosphatase C-Reactive Protein Total Protein Albumin Procalcitonin Hep Bs Antigen Hep Bs Antibody Hep B Core Total Ab Hepatitis C Ab (EIA) HIV 1&2 Ab/P24 Ag 4thGn Imaging Radiology Impressions: ITS Impressions Head CT 01/15/22 06:35 IMPRESSION: Suboptimal assessment in some regions due to motion artifact. No acute intracranial pathology identified. Chest X-Ray 01/15/22 10:40 IMPRESSION: Unremarkable examination. Chest X-Ray 01/16/22 11:59 IMPRESSION: No acute cardiopulmonary process. Abdomen/Pelvis CT 01/21/22 18:08 IMPRESSION: 1. No CT evidence of acute intra-abdominal process to explain patient's pain symptoms. 2. Postsurgical changes in the cecum probably prior appendectomy. No CT evidence of dehiscence. 3. Other noncritical findings described above are stable. Medications Medications Current Medications Acetaminophen (Acetaminophen 325 Mg Tablet) 650 mg PO Q6H PRN PRN Reason: Pain, Mild (Pain Scale 1-3) Last Admin: 01/21/22 15:18 Dose: 650 mg Amlodipine Besylate (Amlodipine Besylate 10 Mg Tablet) 10 mg PO DAILY [facility]; Protocol Last Admin: 01/22/22 08:40 Dose: 10 mg Atorvastatin Calcium (Atorvastatin Calcium 20 Mg Tablet) 20 mg PO DAILY [facility] Last Admin: 01/22/22 08:40 Dose: 20 mg Enoxaparin Sodium (Enoxaparin Sodium 40 Mg/0.4 Ml Syringe) 40 mg SUBCUT Q24H [facility] Last Admin: 01/22/22 12:01 Dose: 40 mg Ceftriaxone Sodium 1 gm/ (Sodium Chloride) 50 mls @ 100 mls/hr IV Q24H [facility] Last Infusion: 01/22/22 12:41 Dose: Infused Insulin Human Lispro (Insulin Lispro 100 Unit/Ml 3 Ml Vial) 0 unit SUBCUT QIDACHS [facility]; Protocol Last Admin: 01/22/22 12:01 Dose: 6 unit Lisinopril (Lisinopril 10 Mg Tablet) 30 mg PO DAILY [facility]; Protocol Last Admin: 01/22/22 08:40 Dose: 30 mg Methadone HCl (Methadone Hcl 20 Mg/2 Ml Oral.Conc) 25 mg PO ONCE ONE Stop: 01/23/22 08:01 Methadone HCl (Methadone Hcl 20 Mg/2 Ml Oral.Conc) 20 mg PO ONCE ONE Stop: 01/24/22 08:01 Methadone HCl (Methadone Hcl 20 Mg/2 Ml Oral.Conc) 15 mg PO ONCE ONE Stop: 01/25/22 08:01 Methadone HCl (Methadone Hcl 20 Mg/2 Ml Oral.Conc) 10 mg PO ONCE ONE Stop: 01/26/22 08:01 Ondansetron HCl (Ondansetron Hcl 4 Mg/2 Ml Vial) 4 mg IVPUSH Q8H PRN PRN Reason: Nausea and Vomiting Prazosin HCl (Prazosin Hcl 1 Mg Capsule) 3 mg PO BEDTIME [facility]; Protocol Last Admin: 01/21/22 19:54 Dose: 3 mg Sodium Chloride (0.9 % Sodium Chloride Flush 3 Ml Syringe) 3 ml IVFLUSH QSHIFT [facility] Last Admin: 01/22/22 08:39 Dose: 3 ml Allergies Allergies Allergy/AdvReac Type Severity Reaction Status Date / Time morphine [MORPHINE] Allergy Unknown RASH, vomit Verified 01/15/22 00:48 prednisone Allergy Unknown hives Verified 01/15/22 00:48 Sulfa (Sulfonamide Allergy Unknown UNKNOWN, Verified 01/15/22 00:48 Antibiotics) hives [SULFA (SULFONAMIDE ANTIBIOTICS)] Assessment & Plan Assessment & Plan (1) Opioid use disorder: Status: Acute Code(s): F11.90 - Opioid use, unspecified, uncomplicated Assessment and Plan: * will start taper of methadone by 5mg QD * monitor for signs of withdrawal and provide comfort meds as needed * at this time low risk for recurrence of use due to inability to speak/move and plan for LTC placement. I spent ___25___ minutes with the patient and/or on the patient floor today, greater than?50% of which was spent counseling/coordinating care.
[2022-01-22 19:55] VITALS: BP 115/110; PULSE 76; RESP 17; TEMP 37.6; O2SAT 96
[2022-01-22 20:05] LABS: Glucose, Whole Blood 309 mg/dL (60-115)
[2022-01-22] MEDS: Prazosin HCL 1 MG CAPSULE 3 MG PO (20:52)
[2022-01-22 23:26] VITALS: BP 119/57; PULSE 83; RESP 18; TEMP 36.3; O2SAT 95
--- NOTE | 2022-01-23 03:03 | PM.EVENT ---
Event Note Date of Service: 01/23/22 Event Note: Patient with fever and restlessness overnight currently on antibiotics Will obtain lactic acid, blood cultures, Tylenol, given hydroxyzine for restlessness
[2022-01-23] MEDS: Acetaminophen 325 MG TABLET 650 MG PO (03:04)
[2022-01-23 03:18] VITALS: BP 113/82; PULSE 92; RESP 20; TEMP 38; O2SAT 97
[2022-01-23 03:55] LABS: Hematocrit 36.2 % (37.0-47.0); Hemoglobin 11.9 g/dl (12.0-16.0); Mean Corpuscular HGB Conc 32.9 g/dl (31.0-35.0); Mean Corpuscular Hemoglobin 27.6 pg (27.0-33.0); Mean Platelet Volume 11.3 fL (9.4-12.3); Platelet Count 292 X10*3/uL (160-400); Red Blood Count 4.31 X10*6/uL (4.20-5.50); Red Cell Distribution Width 15.7 % (11.0-16.0)
[2022-01-23 04:04] LABS: Lactic Acid 1.5 mmol/L (0.5-2.0)
[2022-01-23 04:07] LABS: Anion Gap 17 (12-20); Blood Urea Nitrogen 35 mg/dL (9-16); Calcium 9.1 mg/dL (8.4-10.2); Carbon Dioxide 26 mmol/L (22-29); Chloride 98 mmol/L (96-108); Creatinine Clr Calc Pharmacy 38.2; Estimated Glomerular Filt Rate 27; Glucose Random 348 mg/dL (60-115); Potassium 4.3 mmol/L (3.3-5.1); Sodium 137 mmol/L (135-145)
[2022-01-23] MEDS: hydrOXYzine HCL 25 MG TABLET PO (05:37)
[2022-01-23] MEDS: traZODone HCL 50 MG TABLET PO (06:34)
[2022-01-23 07:40] LABS: Glucose, Whole Blood 307 mg/dL (60-115)
[2022-01-23] MEDS: methADONE HCl 20 MG/2 ML ORAL.CONC 25 MG PO (07:59)
[2022-01-23] MEDS: Atorvastatin Calcium 20 MG TABLET PO (07:59)
[2022-01-23] MEDS: Insulin Lispro 100 UNIT/ML 3 ML VIAL SUBCUT ×4 (07:59→21:07)
[2022-01-23] MEDS: 0.9 % Sodium Chloride Flush 3 ML SYRINGE IVFLUSH ×2 (07:59→21:11)
[2022-01-23] MEDS: amLODIPine Besylate 10 MG TABLET PO (07:59)
[2022-01-23 08:00] VITALS: BP 116/56; PULSE 68; RESP 20; TEMP 36.6; O2SAT 95
[2022-01-23] MEDS: lisinopriL 10 MG TABLET 30 MG PO (08:00)
[2022-01-23 08:47] LABS: Estimated Average Glucose 200 mg/dL; Hemoglobin A1c % 8.6 %
[2022-01-23] MEDS: 0.9 % Sodium Chloride 1,000 ML 125 ML IVCONT ×2 (09:38→16:26)
[2022-01-23 11:29] LABS: Glucose, Whole Blood 165 mg/dL (60-115)
[2022-01-23] MEDS: Enoxaparin Sodium 40 MG/0.4 ML SYRINGE SUBCUT (11:54)
[2022-01-23 12:00] VITALS: BP 118/67; PULSE 72; RESP 20; TEMP 36.1; O2SAT 96
--- NOTE | 2022-01-23 12:18 | HO.HCP_ITS ---
Health Care Proxy Invocation Health Care Proxy Declaration: I, Channing Colmenares MD on the date cited below, have determined that, Kaylyn Cruz lacks the capacity to make or communicate, informed health care decision. This determination is made in accordance with accepted standards of medical judgment and pursuant to [place] 201[place], the [place] Health Care Proxy Law. The cause, nature, extent and probable duration of the patient's inapacity are described below: Cause: hypoxic-ischemic encephalopathy Nature: severe Extent: severe Probable Duration of Patient's Incapacity: to be determined
--- NOTE | 2022-01-23 12:19 | P.PNIM_ITS ---
Subjective Subjective Date of Service: 01/23/22 Interval History: not verbal, not following commands febrile to 100.4 overnight Review of Systems Review of Systems: Yes Unobtainable due to mental status Physical Exam Vital Signs: Vital Signs: Last Vital Signs Temp 97 F 01/23/22 12:00 Pulse 72 01/23/22 12:00 Resp 20 01/23/22 12:00 BP 118/67 01/23/22 12:00 Pulse Ox 96 01/23/22 12:00 O2 Del Method 01/23/22 12:00 O2 Flow Rate 3 01/15/22 12:36 BMI result Body Mass Index 35.0 Gen: awake, nonverbal HEENT: sclera anicteric, moist mucus membranes Neck: supple Lungs: clear to auscultation bilaterally Heart: regular rate and rhythm, no murmurs Abd: soft, non-tender, non-distended Ext: no edema Skin: warm/well-perfused Neuro: alert, nonverbal, unable to assess orientation Psych: impaired insight Objective Data Active Medications Acetaminophen (Acetaminophen 325 Mg Tablet) 650 mg PO Q6H PRN PRN Reason: Pain, Mild (Pain Scale 1-3) Last Admin: 01/23/22 03:04 Dose: 650 mg Documented By: JULIETTE Amlodipine Besylate (Amlodipine Besylate 10 Mg Tablet) 10 mg PO DAILY [facility]; Protocol Last Admin: 01/23/22 07:59 Dose: 10 mg Documented By: YAMILET Atorvastatin Calcium (Atorvastatin Calcium 20 Mg Tablet) 20 mg PO DAILY [facility] Last Admin: 01/23/22 07:59 Dose: 20 mg Documented By: YAMILET Enoxaparin Sodium (Enoxaparin Sodium 40 Mg/0.4 Ml Syringe) 40 mg SUBCUT Q24H [facility] Last Admin: 01/23/22 11:54 Dose: 40 mg Documented By: YAMILET Ceftriaxone Sodium 1 gm/ (Sodium Chloride) 50 mls @ 100 mls/hr IV Q24H [facility] Last Infusion: 01/22/22 12:41 Dose: 0 mls/hr Documented By: MADY Sodium Chloride (Ns) 1,000 mls @ 125 mls/hr IVCONT .Q8H [facility] Stop: 01/24/22 00:29 Last Admin: 01/23/22 09:38 Dose: 125 mls/hr Documented By: YAMILET Insulin Human Lispro (Insulin Lispro 100 Unit/Ml 3 Ml Vial) 0 unit SUBCUT QIDACHS [facility]; Protocol Last Admin: 01/23/22 11:54 Dose: 4 unit Documented By: YAMILET Lisinopril (Lisinopril 10 Mg Tablet) 30 mg PO DAILY [facility]; Protocol Last Admin: 01/23/22 08:00 Dose: 30 mg Documented By: YAMILET Methadone HCl (Methadone Hcl 20 Mg/2 Ml Oral.Conc) 20 mg PO ONCE ONE Stop: 01/24/22 08:01 Methadone HCl (Methadone Hcl 20 Mg/2 Ml Oral.Conc) 15 mg PO ONCE ONE Stop: 01/25/22 08:01 Methadone HCl (Methadone Hcl 20 Mg/2 Ml Oral.Conc) 10 mg PO ONCE ONE Stop: 01/26/22 08:01 Ondansetron HCl (Ondansetron Hcl 4 Mg/2 Ml Vial) 4 mg IVPUSH Q8H PRN PRN Reason: Nausea and Vomiting Prazosin HCl (Prazosin Hcl 1 Mg Capsule) 3 mg PO BEDTIME [facility]; Protocol Last Admin: 01/22/22 20:52 Dose: 3 mg Documented By: JULIETTE Sodium Chloride (0.9 % Sodium Chloride Flush 3 Ml Syringe) 3 ml IVFLUSH [facility] Last Admin: 01/23/22 07:59 Dose: 3 ml Documented By: YAMILET Labs CBC & Chem 7: 01/23/22 03:45 01/23/22 03:45 Labs: Laboratory Results - last 24 hr 01/22/22 01/22/22 01/22/22 06:11 15:54 19:58 MCV MCH MCHC RDW Plt Count MPV Absolute Nucleated RBC Nucleated RBC % (auto) Anion Gap Estim Creat Clear Calc Estimated GFR POC Glucose 268 H 309 H Random Glucose Estimat Average Glucose Hemoglobin A1c % Lactic Acid Calcium Hepatitis C Ab (EIA) Nonreactive 01/23/22 01/23/22 01/23/22 03:44 03:45 03:45 MCV 84.0 MCH 27.6 MCHC 32.9 RDW 15.7 Plt Count 292 MPV 11.3 Absolute Nucleated RBC 0.000 Nucleated RBC % (auto) 0.0 Anion Gap 17 Estim Creat Clear Calc 38.2 Estimated GFR 27 POC Glucose Random Glucose 348 H Estimat Average Glucose Hemoglobin A1c % Lactic Acid 1.5 Calcium 9.1 Hepatitis C Ab (EIA) 01/23/22 01/23/22 01/23/22 03:45 07:29 11:22 MCV MCH MCHC RDW Plt Count MPV Absolute Nucleated RBC Nucleated RBC % (auto) Anion Gap Estim Creat Clear Calc Estimated GFR POC Glucose 307 H 165 H Random Glucose Estimat Average Glucose 200 Hemoglobin A1c % 8.6 Lactic Acid Calcium Hepatitis C Ab (EIA) Assessment and Plan (1) Toxic metabolic encephalopathy: Status: Acute (2) UTI (urinary tract infection): Status: Acute (3) Diabetes: Status: Acute Plan d#9 57yo F with multiple medical issues and multiple prior similar presentations who again arrives with suspected overdose (pt states accidental, not on purpose) with opiates; found down at home; unknown down time # aAcute toxic/metabolic encephalopathy due to suspected accidental opiate overdose - currently presents like anoxic brain injury with no appreciable improvement; 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 NO EPILEPTIFORM DISCHARGES WERE SEEN - [employer]: NDD1 solids, thin liquids # DANY - recurrent. hold lisinopril. check FENa. suspect prerenal- give isotonic fl uids IV and recheck BMP in AM. # UTI, peters-sensitive E coli - ceftriaxone d#8. unknown cause of low-grade fever. cultures sent. CXR no infiltrate. check respiratory pathogen panel. # HTN - amlodipine; lisinopril held # DM2 with hyperglycemia - A1c 8.6 - increase correction-dose lispro # OUD - Addiction Medicine consulted, taper methadone # obesity - non-morbid # VTE ppx: LMWH In my clinical judgment, the patient requires continued inpatient hospitalization for the following reasons: encephalopathy, LTC placement Quality Stroke Does the patient have a stroke diagnosis?: No VTE Prior VTE?: No VTE Risk Level:: Medical - moderate - high VTE Device Contraindication: Treatment Not Indicated VTE Drug Contraindication: N/A - Med Ordered
[2022-01-23] MEDS: cefTRIAXone sodium 1 GM in 0.9 % Sodium Chloride 50 ML IV (13:47)
[2022-01-23 13:52] LABS: Appearance Urine Clear; Color Urine Yellow; Glucose Urine UA 100 mg/dL (Negative); Leukocyte Esterase Urine Negative (Negative); Nitrite Urine Negative (Negative); Specific Gravity - Urine >= 1.030 (1.005-1.025); UMIC TRIGGER UA YES; Urine Blood Negative (Negative); Urine Ketones Trace mg/dL (Negative); Urine Protein 100 (2+) mg/dL (Neg-Trace)
[2022-01-23 14:01] LABS: RBC Urine 0-2 /HPF (0-2); WBC Urine 0-5 /HPF (0-5)
[2022-01-23 14:02] LABS: Bacteria Urine 2+ (None Seen); Hyaline Casts Urine 0-2 /LPF (0-2)
[2022-01-23 14:03] LABS: Other Crystals Urine Present
[2022-01-23 14:12] LABS: Creatinine Urine 334.44 mg/dL
[2022-01-23 14:25] LABS: Adenovirus PCR Not Detected (Not Detect.); Bordetella parapertussis PCR Not Detected (Not Detect.); Bordetella pertussis PCR Not Detected (Not Detect.); Chlamydia pneumoniae PCR Not Detected (Not Detect.); Coronavirus 229E PCR Not Detected (Not Detect.); Coronavirus HKU1 PCR Not Detected (Not Detect.); Coronavirus NL63 PCR Not Detected (Not Detect.); Coronavirus OC43 PCR Not Detected (Not Detect.); Human metapneumovirus PCR Not Detected (Not Detect.); Influenza A PCR Not Detected (Not Detect.); Influenza B PCR Not Detected (Not Detect.); Mycoplasma pneumoniae PCR Not Detected (Not Detect.); Parainfluenza 1 PCR Not Detected (Not Detect.); Parainfluenza 2 PCR Not Detected (Not Detect.); Parainfluenza 3 PCR Not Detected (Not Detect.); Parainfluenza 4 PCR Not Detected (Not Detect.); RSV PCR Not Detected (Not Detect.); Rhino/Enterovirus PCR Not Detected (Not Detect.); SARS-CoV-2 PCR Not Detected (Not Detect.)
[2022-01-23 16:00] VITALS: BP 105/60; PULSE 89; RESP 19; TEMP 37.1; O2SAT 97
[2022-01-23 16:11] LABS: Glucose, Whole Blood 275 mg/dL (60-115)
[2022-01-23 19:29] LABS: Glucose, Whole Blood 269 mg/dL (60-115)
[2022-01-23 19:40] VITALS: BP 139/77; PULSE 78; RESP 19; TEMP 37.2; O2SAT 98
[2022-01-23] MEDS: Prazosin HCL 1 MG CAPSULE 3 MG PO (21:03)
[2022-01-23] MEDS: Haloperidol Lactate 5 MG/ML VIAL 2.5 MG IVPUSH (21:11)
[2022-01-23 23:40] VITALS: BP 103/55; PULSE 62; RESP 18; TEMP 37.1; O2SAT 96
[2022-01-24] VITALS (7 sets, daily range): BP systolic 106–147; BP diastolic 51–75; PULSE 67–79; RESP 17–20; TEMP 35.9–37.1; O2SAT 94–98
--- NOTE | 2022-01-24 | ECG_ITS ---
Test Reason : QT INTERVAL Blood Pressure : / mmHG Vent. Rate : 069 BPM Atrial Rate : 069 BPM P-R Int : 146 ms QRS Dur : 092 ms QT Int : 458 ms P-R-T Axes : 029 032 045 degrees QTc Int : 490 ms Normal sinus rhythm Nonspecific T wave abnormality Prolonged QT RSR' or QR pattern in V1 suggests right ventricular conduction delay Abnormal ECG When compared with ECG of 15-JAN-2022 00:49, Heart rate has decreased Referred By: Channing Mtz Electronically Signed By:ROLANDA CAAL MD
[2022-01-24] MEDS: traZODone HCL 50 MG TABLET PO (02:45)
[2022-01-24 07:21] LABS: Glucose, Whole Blood 227 mg/dL (60-115)
[2022-01-24 07:47] LABS: Syphilis Screen Nonreactive (Nonreactive)
[2022-01-24] MEDS: Insulin Lispro 100 UNIT/ML 3 ML VIAL SUBCUT ×4 (07:49→20:58)
[2022-01-24] MEDS: Haloperidol Lactate 5 MG/ML VIAL 2.5 MG IM (07:49)
[2022-01-24] MEDS: 0.9 % Sodium Chloride Flush 3 ML SYRINGE IVFLUSH (07:50)
[2022-01-24] MEDS: amLODIPine Besylate 10 MG TABLET PO (07:50)
[2022-01-24] MEDS: Atorvastatin Calcium 20 MG TABLET PO (07:50)
[2022-01-24] MEDS: methADONE HCl 20 MG/2 ML ORAL.CONC PO (07:50)
[2022-01-24 08:06] LABS: Procalcitonin 0.12 ng/mL
[2022-01-24 08:39] LABS: Anion Gap 22 (12-20); Blood Urea Nitrogen 48 mg/dL (9-16); C Reactive Protein 5.19 mg/dL (< or = 0.50); Calcium 8.8 mg/dL (8.4-10.2); Carbon Dioxide 19 mmol/L (22-29); Chloride 102 mmol/L (96-108); Creatinine Clr Calc Pharmacy 38.2; Estimated Glomerular Filt Rate 27; Glucose Random 275 mg/dL (60-115); Potassium 4.1 mmol/L (3.3-5.1); Sodium 139 mmol/L (135-145)
[2022-01-24 09:13] LABS: Hematocrit 33.9 % (37.0-47.0); Hemoglobin 11.1 g/dl (12.0-16.0); Mean Corpuscular HGB Conc 32.7 g/dl (31.0-35.0); Mean Corpuscular Hemoglobin 27.6 pg (27.0-33.0); Mean Corpuscular Volume 84.3 fL (80.0-98.0); Mean Platelet Volume 11.8 fL (9.4-12.3); Platelet Count 233 X10*3/uL (160-400); Red Blood Count 4.02 X10*6/uL (4.20-5.50); Red Cell Distribution Width 15.9 % (11.0-16.0); White Blood Count 15.7 X10*3/uL (4.8-10.8)
--- NOTE | 2022-01-24 10:34 | P.PNIM_ITS ---
Subjective Subjective Date of Service: 01/24/22 Interval History: Today for the 1st time this hospitalization, the patient is speaking coherent words. She denies pain. She follows simple commands. She ate her entire breakfast. However, after a few minutes, she tired and fell asleep. No further fevers. Review of Systems Review of Systems: Yes all other systems are reviewed and are negative Physical Exam Vital Signs: Vital Signs: Last Vital Signs Temp 97.5 F 01/24/22 07:25 Pulse 76 01/24/22 07:25 Resp 20 01/24/22 07:25 BP 106/51 L 01/24/22 07:25 Pulse Ox 97 01/24/22 07:25 O2 Del Method 01/24/22 07:25 O2 Flow Rate 3 01/15/22 12:36 BMI result Body Mass Index 35.0 Gen: awake, alert, answers simple questions and follows simple commands appropriately HEENT: sclera anicteric, moist mucus membranes Neck: supple Lungs: clear to auscultation bilaterally Heart: regular rate and rhythm, no murmurs Abd: soft, non-tender, non-distended Ext: no edema Skin: warm/well-perfused Neuro: alert, disoriented, moving all extremities Psych: impaired insight Objective Data Active Medications Acetaminophen (Acetaminophen 325 Mg Tablet) 650 mg PO Q6H PRN PRN Reason: Pain, Mild (Pain Scale 1-3) Last Admin: 01/23/22 03:04 Dose: 650 mg Documented By: JULIETTE Amlodipine Besylate (Amlodipine Besylate 10 Mg Tablet) 10 mg PO DAILY COUNT INCLUDES THE [facility]; P rotocol Last Admin: 01/24/22 07:50 Dose: 10 mg Documented By: YAMILET Atorvastatin Calcium (Atorvastatin Calcium 20 Mg Tablet) 20 mg PO DAILY COUNT INCLUDES THE [facility] Last Admin: 01/24/22 07:50 Dose: 20 mg Documented By: YAMILET Enoxaparin Sodium (Enoxaparin Sodium 40 Mg/0.4 Ml Syringe) 40 mg SUBCUT Q24H COUNT INCLUDES THE [facility] Last Admin: 01/23/22 11:54 Dose: 40 mg Documented By: YAMILET Ceftriaxone Sodium 1 gm/ (Sodium Chloride) 50 mls @ 100 mls/hr IV Q24H COUNT INCLUDES THE [facility] Last Infusion: 01/23/22 14:18 Dose: 0 mls/hr Documented By: YAMILET Sodium Chloride (Ns) 1,000 mls @ 125 mls/hr IVCONT .Q8H COUNT INCLUDES THE [facility] Insulin Glargine (Insulin Glargine,Hum.Rec.Anlog 100 Unit/Ml 10 Ml Vial) 10 unit SUBCUT DAILY COUNT INCLUDES THE [facility] Insulin Human Lispro (Insulin Lispro 100 Unit/Ml 3 Ml Vial) 0 unit SUBCUT QIDACHS COUNT INCLUDES THE [facility]; Protocol Last Admin: 01/24/22 07:49 Dose: 6 unit Documented By: YAMILET Lisinopril (Lisinopril 10 Mg Tablet) 30 mg PO DAILY COUNT INCLUDES THE [facility]; Protocol Last Admin: 01/23/22 08:00 Dose: 30 mg Documented By: YAMILET Methadone HCl (Methadone Hcl 20 Mg/2 Ml Oral.Conc) 15 mg PO ONCE ONE Stop: 01/25/22 08:01 Methadone HCl (Methadone Hcl 20 Mg/2 Ml Oral.Conc) 10 mg PO ONCE ONE Stop: 01/26/22 08:01 Ondansetron HCl (Ondansetron Hcl 4 Mg/2 Ml Vial) 4 mg IVPUSH Q8H PRN PRN Reason: Nausea and Vomiting Prazosin HCl (Prazosin Hcl 1 Mg Capsule) 3 mg PO BEDTIME COUNT INCLUDES THE [facility]; Protocol Last Admin: 01/23/22 21:03 Dose: 3 mg Documented By: JULIETTE Sodium Chloride (0.9 % Sodium Chloride Flush 3 Ml Syringe) 3 ml IVFLUSH QSHIFT COUNT INCLUDES THE [facility] Last Admin: 01/24/22 07:50 Dose: 3 ml Documented By: YAIMLET Labs CBC & Chem 7: 01/24/22 08:53 01/24/22 06:16 Labs: Laboratory Results - last 24 hr 01/23/22 01/23/22 01/23/22: 13:30 13:30 MCV MCH MCHC RDW Plt Count MPV Absolute Nucleated RBC Nucleated RBC % (auto) Anion Gap Estim Creat Clear Calc Estimated GFR POC Glucose 165 H Random Glucose Calcium C-Reactive Protein Procalcitonin Urine Color Yellow Urine Appearance Clear Urine pH 5.0 Ur Specific Brandon >= 1.030 H Urine Protein 100 (2+) H Urine Glucose (UA) 100 H Urine Ketones Trace Urine Blood Negative Urine Nitrite Negative Ur Leukocyte Esterase Negative Urine RBC 0-2 Urine WBC 0-5 Ur Squamous Epith Cells 3-5 Other Crystals Present Urine Bacteria 2+ Hyaline Casts 0-2 Ur Random Sodium 46.0 Urine Creatinine 334.44 Respiratory Panel Velez T.pallidum Ab (EIA) Adenovirus (Rapid PCR) B.pert (TEM-PCR) B.parapertussis DNA PCR C. pneumoniae DNA (PCR) Coronavirus OC43 (PCR) Coronavirus HKU1 (PCR) Coronavirus 229E (PCR) Coronavirus NL63 (PCR) Human Metapneumovir PCR Influenza A (RT-PCR) Influenza B (RT-PCR) M. pneumoniae (PCR) Parainfluenza 1 (PCR) Parainfluenza 2 (PCR) Parainfluenza 3 (PCR) Parainfluenza 4 (PCR) RSV (PCR) Entero/Rhino (PCR) SARS-CoV-2 RNA (RT-PCR) 01/23/22 01/23/22 01/23/22 15:56 19:18 Unknown MCV MCH MCHC RDW Plt Count MPV Absolute Nucleated RBC Nucleated RBC % (auto) Anion Gap Estim Creat Clear Calc Estimated GFR POC Glucose 275 H 269 H Random Glucose Calcium C-Reactive Protein Procalcitonin Urine Color Urine Appearance Urine pH Ur Specific Brandon Urine Protein Urine Glucose (UA) Urine Ketones Urine Blood Urine Nitrite Ur Leukocyte Esterase Urine RBC Urine WBC Ur Squamous Epith Cells Other Crystals Urine Bacteria Hyaline Casts Ur Random Sodium Urine Creatinine Respiratory Panel Velez See Note T.pallidum Ab (EIA) Adenovirus (Rapid PCR) Not Detected B.pert (TEM-PCR) Not Detected B.parapertussis DNA PCR Not Detected C. pneumoniae DNA (PCR) Not Detected Coronavirus OC43 (PCR) Not Detected Coronavirus HKU1 (PCR) Not Detected Coronavirus 229E (PCR) Not Detected Coronavirus NL63 (PCR) Not Detected Human Metapneumovir PCR Not Detected Influenza A (RT-PCR) Not Detected Influenza B (RT-PCR) Not Detected M. pneumoniae (PCR) Not Detected Parainfluenza 1 (PCR) Not Detected Parainfluenza 2 (PCR) Not Detected Parainfluenza 3 (PCR) Not Detected Parainfluenza 4 (PCR) Not Detected RSV (PCR) Not Detected Entero/Rhino (PCR) Not Detected SARS-CoV-2 RNA (RT-PCR) Not Detected 01/24/22 01/24/22 01/24/22 06:16 06:16 06:16 MCV MCH MCHC RDW Plt Count MPV Absolute Nucleated RBC Nucleated RBC % (auto) Anion Gap 22 H Estim Creat Clear Calc 38.2 Estimated GFR 27 POC Glucose Random Glucose 275 H Calcium 8.8 C-Reactive Protein 5.19 H Procalcitonin 0.12 Urine Color Urine Appearance Urine pH Ur Specific Brandon Urine Protein Urine Glucose (UA) Urine Ketones Urine Blood Urine Nitrite Ur Leukocyte Esterase Urine RBC Urine WBC Ur Squamous Epith Cells Other Crystals Urine Bacteria Hyaline Casts Ur Random Sodium Urine Creatinine Respiratory Panel Velez T.pallidum Ab (EIA) Nonreactive Adenovirus (Rapid PCR) B.pert (TEM-PCR) B.parapertussis DNA PCR C. pneumoniae DNA (PCR) Coronavirus OC43 (PCR) Coronavirus HKU1 (PCR) Coronavirus 229E (PCR) Coronavirus NL63 (PCR) Human Metapneumovir PCR Influenza A (RT-PCR) Influenza B (RT-PCR) M. pneumoniae (PCR) Parainfluenza 1 (PCR) Parainfluenza 2 (PCR) Parainfluenza 3 (PCR) Parainfluenza 4 (PCR) RSV (PCR) Entero/Rhino (PCR) SARS-CoV-2 RNA (RT-PCR) 01/24/22 01/24/22 07:01 08:53 MCV 84.3 MCH 27.6 MCHC 32.7 RDW 15.9 Plt Count 233 MPV 11.8 Absolute Nucleated RBC 0.000 Nucleated RBC % (auto) 0.0 Anion Gap Estim Creat Clear Calc Estimated GFR POC Glucose 227 H Random Glucose Calcium C-Reactive Protein Procalcitonin Urine Color Urine Appearance Urine pH Ur Specific Brandon Urine Protein Urine Glucose (UA) Urine Ketones Urine Blood Urine Nitrite Ur Leukocyte Esterase Urine RBC Urine WBC Ur Squamous Epith Cells Other Crystals Urine Bacteria Hyaline Casts Ur Random Sodium Urine Creatinine Respiratory Panel Velez T.pallidum Ab (EIA) Adenovirus (Rapid PCR) B.pert (TEM-PCR) B.parapertussis DNA PCR C. pneumoniae DNA (PCR) Coronavirus OC43 (PCR) Coronavirus HKU1 (PCR) Coronavirus 229E (PCR) Coronavirus NL63 (PCR) Human Metapneumovir PCR Influenza A (RT-PCR) Influenza B (RT-PCR) M. pneumoniae (PCR) Parainfluenza 1 (PCR) Parainfluenza 2 (PCR) Parainfluenza 3 (PCR) Parainfluenza 4 (PCR) RSV (PCR) Entero/Rhino (PCR) SARS-CoV-2 RNA (RT-PCR) Microbiology Microbiology Results: Microbiology 01/23/22 03:45 Blood Culture - Preliminary Blood - Venous No growth after 24 hours. 01/23/22 03:45 Blood Culture - Preliminary Blood - Venous No growth after 24 hours. 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 NO EPILEPTIFORM DISCHARGES WERE SEEN - CORE FILER: NDD1 solids, thin liquids. Re-eval now that more awake. # DANY - recurrent. hold lisinopril. FENa 0.2 suggesting prerenal state- continue isotonic fluids IV and recheck BMP in AM. # UTI, peters-sensitive E coli - ceftriaxone d#11/18. unknown cause of low-grade fever but has not recurred. BCx NGTD. CXR no infiltrate. Resp pathogen panel negative. # HTN - continue amlodipine; lisinopril held # DM2 with hyperglycemia - A1c 8.6 - increased correction-dose lispro; add basal glargine # OUD - Addiction Medicine consulted, tapering methadone # obesity - non-morbid # VTE ppx: LMWH # dispo: LTC placement. PT re-eval given more awake/verbal. In my clinical judgment, the patient requires continued inpatient hospitalization for the following reasons: encephalopathy, LTC placement, DANY Quality Stroke Does the patient have a stroke diagnosis?: No VTE Prior VTE?: No VTE Risk Level:: Medical - moderate - high VTE Device Contraindication: Treatment Not Indicated VTE Drug Contraindication: N/A - Med Ordered
[2022-01-24] MEDS: Insulin Glargine,Hum.rec.anlog 100 UNIT/ML 10 ML VIAL 10 UNIT SUBCUT (11:11)
[2022-01-24] MEDS: 0.9 % Sodium Chloride 1,000 ML 125 ML IVCONT ×2 (11:12→17:16)
[2022-01-24] MEDS: Enoxaparin Sodium 40 MG/0.4 ML SYRINGE SUBCUT (11:12)
--- NOTE | 2022-01-24 11:16 | MHC.RECOVRN ---
Briefly met with pt in 453 to follow up and assess for withdrawal symptoms. Pt is currently on a methadone taper. Upon entering room, pt awake, moving around in bed. Per sitter, pt has been trying to get out of bed all morning, trying to put head through side rails, getting on all fours, has been difficult to redirect. While talking with pt, pt remained laying in bed. Pt able to speak with t/w, was able to tell me she knows she is in the hospital, did not know which one. When asked pts birthday, pt responded [birth year] unable to say a year. Pt denies feeling withdrawal symptoms, does not appear to be uncomfortable or experiencing withdrawal. Pt asked why t/w had a cigarette in the room, no cigarette was present. Pt drowsy at end of conversation and fell asleep. Discussed with Anjali Long APRN.
[2022-01-24 11:22] LABS: Glucose, Whole Blood 251 mg/dL (60-115)
--- NOTE | 2022-01-24 12:21 | MHC.SL.SWA ---
Addendum entered and electronically signed by KESHAV Encarnacion 01/24/22 16:49: SW Original Note: Risk of Aspiration Due to: Reduced Cognition Dysphasia Diet Status: Recommend UPGRADE to GROUND/MECH ALTERED (NDD2). Continue with THIN liquids and pills CRUSHED in puree. Pt continues to require 1-1 assistance during meals bringing food and drink to oral cavity. Cue pt to take small sips; may need to remove straw from pt's mouth to prevent long chain sips. Pt must be awake and alert for presentation of PO. Hold tray if pt is lethargic, w/ decreased responsiveness. Liquid Consistency and Strategies for Safe Swallow: Liquid Intake Recommendation: Thin Liquid Intake Strategies: Small Sips Solid Food Consistency: Dietary Recommendations: Grnd/Mech Altered (NDD2) Additional Modifications to Solid Foods: Moisten food with sauce/gravy Oral Medication Intake: Crushed with Puree Please contact the pharmacy regarding appropriate crushable or liquid drug formulations that are available whenever modified delivery is recommended. Compensatory Strategies and Precautions to be Taken for Safe Swallow: Sitting Upright (90 deg) Alternate Liquids/Solids Oral Check Avoid Specific Foods Supervision While Eating and Drinking for Safe Swallow: Total Assistance (1:1) Foods to Avoid: Mixed consistencies (e.g. cereal and milk, thin soups with pieces of veg/meat). Sticky foods Swallowing Recommended Treatments: Compens. Strategy Educat. Recommendation for Speech: Inpatient Speech Therapy Comment: Re-eval ordered by d/t pt more awake and verbal. Pt noticeably more alert and verbal upon A[employer]ICULTURAL [employer] F[employer] MANAGER's arrival. Speech sometimes immediate echolalia, sometimes nonsensical, sometimes independent productions. Pt's daughter entered room towards end of PO trials, pt recognized daughter and spoke her name immediately. Pt awake upon arrival, greeting clincian with chelita Cardoso present at bedside. Pt opened mouth on command. Pt's dentition incomplete with several spaces and broken teeth. Pt seen for bedside dysphagia tx during lunch meal (NDD1 tray with pureed meat, carrot, and potato). Pt tolerated several bites of pureed solids with timely AP transport and clear oral cavity. Pt tolerated bites of lisa cracker moistened and crumbled in applesauce with timely AP transport and trace lingual residue. Lingual residue was cleared with subsequent swallow and/or liquid wash. Clinician allowed pt to assist w/ feeding, pt requested clinician's help. Pt tolerated sips of thin liquids via straw with no overt clincial s/s of aspiration. Pt was observed to be impulsive when sipping from straw. Clincian cued pt to take small sips; pt did not oblige. Clinician needed to pull straw from pt's mouth for pt to pause drinking. Pt did not require cues to open mouth or to swallow. No bolus holding observed. No anterior bolus loss. Recommend UPGRADE to GROUND/MECH ALTERED (NDD2). Continue with THIN liquids and pills CRUSHED in puree. Pt continues to require 1-1 assistance during meals bringing food and drink to oral cavity. Cue pt to take small sips; may need to remove straw from pt's mouth to prevent long chain sips. Mobile Sales Technician Clinican/Clinical Fellow: Yes: Radha Butler M.A., CF-[employer]GER Supervisory Statement: I have reviewed and agree with the student/clinical fellow's documentation: Yes Speech Language Pathologist: Bri Stubbs M.A., CCC-[employer]
[2022-01-24] MEDS: cefTRIAXone sodium 1 GM in 0.9 % Sodium Chloride 50 ML IV (13:00)
--- NOTE | 2022-01-24 14:45 | MHC.CM.PN ---
spoke with and met with pts dgtr and hcp [facility] [place] phone is [phone] she wants to be involved with all of pts care and dc planning ,she is agreeable to dc plan ffor rehab bed search in progress
[2022-01-24 16:26] LABS: Glucose, Whole Blood 170 mg/dL (60-115)
[2022-01-24 20:22] LABS: Glucose, Whole Blood 232 mg/dL (60-115)
[2022-01-24] MEDS: Prazosin HCL 1 MG CAPSULE 3 MG PO (20:58)
[2022-01-25] MEDS: 0.9 % Sodium Chloride Flush 3 ML SYRINGE IVFLUSH (00:08)
[2022-01-25] MEDS: Acetaminophen 325 MG TABLET 650 MG PO (00:13)
[2022-01-25] MEDS: traZODone HCL 50 MG TABLET PO (01:01)
[2022-01-25 03:13] VITALS: BP 120/69; PULSE 70; RESP 19; TEMP 36.2; O2SAT 98
[2022-01-25 06:36] LABS: Hematocrit 32.8 % (37.0-47.0); Hemoglobin 10.6 g/dl (12.0-16.0); Mean Corpuscular HGB Conc 32.3 g/dl (31.0-35.0); Mean Corpuscular Hemoglobin 27.4 pg (27.0-33.0); Mean Corpuscular Volume 84.8 fL (80.0-98.0); Mean Platelet Volume 11.7 fL (9.4-12.3); Platelet Count 228 X10*3/uL (160-400); Red Blood Count 3.87 X10*6/uL (4.20-5.50); Red Cell Distribution Width 15.8 % (11.0-16.0); White Blood Count 11.8 X10*3/uL (4.8-10.8)
[2022-01-25 07:33] LABS: Glucose, Whole Blood 261 mg/dL (60-115)
[2022-01-25 08:00] VITALS: BP 106/51; PULSE 62; RESP 20; TEMP 36.4; O2SAT 99
[2022-01-25] MEDS: Insulin Glargine,Hum.rec.anlog 100 UNIT/ML 10 ML VIAL 10 UNIT SUBCUT (08:04)
[2022-01-25] MEDS: methADONE HCl 20 MG/2 ML ORAL.CONC 15 MG PO (08:05)
[2022-01-25] MEDS: Insulin Lispro 100 UNIT/ML 3 ML VIAL SUBCUT ×4 (08:05→21:43)
[2022-01-25] MEDS: amLODIPine Besylate 10 MG TABLET PO (08:07)
[2022-01-25] MEDS: Atorvastatin Calcium 20 MG TABLET PO (08:07)
[2022-01-25 08:20] LABS: Blood Urea Nitrogen 29 mg/dL (9-16); Calcium 9.1 mg/dL (8.4-10.2); Creatinine Clr Calc Pharmacy 63.6; Estimated Glomerular Filt Rate 49; Glucose Random 281 mg/dL (60-115)
[2022-01-25 08:43] LABS: Anion Gap 16 (12-20); Carbon Dioxide 22 mmol/L (22-29); Chloride 104 mmol/L (96-108); Potassium 4.3 mmol/L (3.3-5.1); Sodium 138 mmol/L (135-145)
--- NOTE | 2022-01-25 09:11 | PHA.PROG ---
Admission Date/Time: January 15, 2022 10:50 Indication: Bacetermia Weight in k.4 kg Adjusted body weight in K.9 kg [place] body weight in K. kg Obesity Dosing Indication % IBW: 165 % Serum Creatinine - Last 168 Hours 01/19/22 01/20/22 01/21/22 05:48 06:13 05:55 Creatinine 1.74 H 1.42 H 1.19 01/22/22 01/23/22 01/24/22 06:11 03:45 06:16 Creatinine 1.15 1.90 H 1.90 H 01/25/22 06:02 Creatinine 1.14 Estimated CrCl and GFR - Last 168 Hours 01/19/22 01/20/22 01/21/22 05:48 06:13 05:55 Estim Creat Clear Calc 41.7 51.1 60.9 Estimated GFR 30 38 47 01/22/22 01/23/22 01/24/22 06:11 03:45 06:16 Estim Creat Clear Calc 63.1 38.2 38.2 Estimated GFR 48 27 27 01/25/22 06:02 Estim Creat Clear Calc 63.6 Estimated GFR 49 Vancomycin Loading Dose: 2000 mg Current Vancomycin Dosing Regimen: 1250 mg Q24H Date and Time for next Vancomycin Level to be drawn: 01/28 @ 0500 Pharmacist Comments on Vancomycin Plan: Patient is obese therfore requires carefully monitor as vancomycin can be unpredicatable due to high volume of distribution Patient received 2000 mg loading dose 01/25 @ 0637. Maintenance dose 1250 mg Q24H is scheduled to start 01/26 @ 0700. Expected AUC 519 with a trough of 13.7 Trough to be drawn prior to 4th dose Pharmacy to monitor renal function daily. Fifi Sage, Ijeoma Vancomycin dosing will take advantage of [employer] as a clinical decision support tool that uses Bayesian modeling to calculate individual patient's pharmacokinetic parameters and forecast the patient's drug concentration time course with the target goal AUC 24 range of 400 - 600 mg/L/hr.
[2022-01-25] MEDS: LORazepam 0.5 MG TABLET PO (10:56)
--- NOTE | 2022-01-25 11:26 | MHC.RECOVRN ---
Met with pt in 453 to follow up and assess for withdrawal. Pt laying in bed,restless, easily engages in conversation. Pt reports feeling good today. Pt oriented to place and is able to tell me her . Pt has visitors present, Jaxson (roommate) and Jasmin (neighbor). Both informed t/w that pt has used substances off and on for years, had used opiate pills [place] as well as heroin. Jaxson reports pt had been in recovery for a short amount of time prior to recent overdose. Jaxson and Jasmin report that pt at times would seem like she had dementia but would come out of it. Jaxson reports pt has VNA 3 times weekly and medications are in a secured location. Jaxson also reports pt uses edibles for foot pain. Pt attempting a few times during conversation to get out of bed, states I'm going to walk you out. Pt easily redirected. Visitors concerned regarding pts placement, encouraged them to follow up with case management. Pt and visitors deny other questions or concerns.
[2022-01-25 11:29] LABS: Glucose, Whole Blood 178 mg/dL (60-115)
[2022-01-25 11:45] VITALS: BP 143/58; PULSE 64; RESP 20; TEMP 36.2; O2SAT 98
[2022-01-25] MEDS: Enoxaparin Sodium 40 MG/0.4 ML SYRINGE SUBCUT (12:02)
--- NOTE | 2022-01-25 13:23 | HO.PM.IMPN ---
Subjective Subjective Date of Service: 01/25/22 Interval History: seen and examined this morning follow up for encephalopathy patient awake, alert and answering questions appropriately. no specific complaints this morning Review of Systems Review of Systems: Yes all other systems are reviewed and are negative Constitutional Constitutional: Denies chills and Denies fever(s) Cardiovascular Cardiovascular: Denies chest pain, Denies palpitations and Denies dyspnea Respiratory Respiratory: Denies cough and Denies dyspnea Gastrointestinal Gastrointestinal: Denies abdominal pain, Denies nausea and Denies vomiting Endocrine Endocrine: Denies palpitations Physical Exam Vital Signs: Vital Signs: Last Vital Signs Temp 97.1 F 01/25/22 11:45 Pulse 64 01/25/22 11:45 Resp 20 01/25/22 11:45 BP 143/58 H 01/25/22 11:45 Pulse Ox 98 01/25/22 11:45 O2 Del Method 01/25/22 11:45 O2 Flow Rate 3 01/15/22 12:36 BMI result Body Mass Index 35.0 Const: Other: able to state her name, year and that she is at the hospital General: cooperative, comfortable, alert and awake Nutritional Appearance: overweight Resp: Effort & Inspection: normal respiratory effort and able to speak in complete sentences Cardio: Rate: regular rate Heart sounds: S1 normal heart sound present and S2 normal heart sound present GI: Inspection: No distended Palpation (GI): Soft to palpation Neuro: Other: grossly nonfocal Extrem: Other: moving all 4 extremities spontaneously Objective Data Active Medications Acetaminophen (Acetaminophen 325 Mg Tablet) 650 mg PO Q6H PRN PRN Reason: Pain, Mild (Pain Scale 1-3) Last Admin: 01/25/22 00:13 Dose: 650 mg Documented By: GRETCHEN Amlodipine Besylate (Amlodipine Besylate 10 Mg Tablet) 10 mg PO DAILY [facility]; Protocol Last Admin: 01/25/22 08:07 Dose: 10 mg Documented By: KATHERINE Atorvastatin Calcium (Atorvastatin Calcium 20 Mg Tablet) 20 mg PO DAILY [facility] Last Admin: 01/25/22 08:07 Dose: 20 mg Documented By: KATHERINE Enoxaparin Sodium (Enoxaparin Sodium 40 Mg/0.4 Ml Syringe) 40 mg SUBCUT Q24H [facility] Last Admin: 01/25/22 12:02 Dose: 40 mg Documented By: KATHERINE Ceftriaxone Sodium 1 gm/ (Sodium Chloride) 50 mls @ 100 mls/hr IV Q24H [facility] Stop: 01/25/22 23:00 Last Infusion: 01/24/22 13:40 Dose: 0 mls/hr Documented By: YAMILET Vancomycin HCl 1,250 mg/ (Sodium Chloride) 250 mls @ 166.667 mls/hr IV Q24H [facility] Insulin Glargine (Insulin Glargine,Hum.Rec.Anlog 100 Unit/Ml 10 Ml Vial) 10 unit SUBCUT DAILY [facility] Last Admin: 01/25/22 08:04 Dose: 10 unit Documented By: KATHERINE Insulin Human Lispro (Insulin Lispro 100 Unit/Ml 3 Ml Vial) 0 unit SUBCUT QIDACHS [facility]; Protocol Last Admin: 01/25/22 12:01 Dose: 4 unit Documented By: KATHERINE Lisinopril (Lisinopril 10 Mg Tablet) 30 mg PO DAILY [facility]; Protocol Last Admin: 01/23/22 08:00 Dose: 30 mg Documented By: YAMILET Lorazepam (Lorazepam 0.5 Mg Tablet) 0.5 mg PO DAILY PRN PRN Reason: Anxiety Last Admin: 01/25/22 10:56 Dose: 0.5 mg Documented By: KATHERINE Methadone HCl (Methadone Hcl 20 Mg/2 Ml Oral.Conc) 10 mg PO ONCE ONE Stop: 01/26/22 08:01 Methadone HCl (Methadone Hcl 20 Mg/2 Ml Oral.Conc) 5 mg PO ONCE ONE Stop: 01/27/22 08:01 Ondansetron HCl (Ondansetron Hcl 4 Mg/2 Ml Vial) 4 mg IVPUSH Q8H PRN PRN Reason: Nausea and Vomiting Pharmacy Consult (Consult Rx Vancomycin Dosing) 1 each MISCELLANE DAILY PRN PRN Reason: Consult order Prazosin HCl (Prazosin Hcl 1 Mg Capsule) 3 mg PO BEDTIME [facility]; Protocol Last Admin: 01/24/22 20:58 Dose: 3 mg Documented By: YAMILTE Sodium Chloride (0.9 % Sodium Chloride Flush 3 Ml Syringe) [facility] Last Admin: 01/25/22 10:09 Dose: Not Given Documented By: KATHERINE Non-Admin Reason: IV Running Labs CBC & Chem 7: 01/25/22 06:02 01/25/22 06:02 Labs: Laboratory Results - last 24 hr 01/24/22 01/24/22 01/25/22 16:18 20:12 06:02 MCV 84.8 MCH 27.4 MCHC 32.3 RDW 15.8 Plt Count 228 MPV 11.7 Absolute Nucleated RBC 0.000 Nucleated RBC % (auto) 0.0 Anion Gap Estim Creat Clear Calc Estimated GFR POC Glucose 170 H 232 H Random Glucose Calcium 01/25/22 01/25/22 01/25/22 06:02 07:22 11:25 MCV MCH MCHC RDW Plt Count MPV Absolute Nucleated RBC Nucleated RBC % (auto) Anion Gap 16 Estim Creat Clear Calc 63.6 Estimated GFR 49 POC Glucose 261 H 178 H Random Glucose 281 H Calcium 9.1 Microbiology Microbiology Results: Microbiology 01/23/22 03:45 Blood Culture - Preliminary Blood - Venous Prelim: GPC Gram Stain only 01/23/22 03:45 Blood Culture - Preliminary Blood - Venous No growth after 48 hours. Assessment and Plan (1) Toxic metabolic encephalopathy: Status: Acute Plan d#9 57yo F with multiple medical issues and multiple prior similar presentations who again arrives with suspected overdose (pt states accidental, not on purpose) with opiates; found down at home; unknown down time # acute toxic/metabolic encephalopathy due to suspected accidental opiate overdose initially presents like anoxic brain injury with no appreciable improvement; suspect hypoxic-ischemic encephalopathy. mental status improving EEG CONSISTENT WITH A MARKEDLY ABNORMAL PATTERN SEVERE DIFFUSE DELTA SLOWING CONSISTENT WITH A DIFFUSE ENCEPHALOPATHIC PROCESS. 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 Re-eval now that more awake. # mood on multiple medications at baseline, on hold during admission psych eval for med management # DANY - recurrent. hold lisinopril. FENa 0.2 suggesting prerenal state resolved, creatinine down to 1.1 d/c IVF # 1/2 blood cultures positive for GPC receiving empiric vanco follow final cultures, repeat cultures pending # UTI, peters-sensitive E coli - ceftriaxone d#12/18. unknown cause of low-grade fever but has not recurred. BCx NGTD. CXR no infiltrate. Resp pathogen panel negative. # HTN - continue amlodipine; lisinopril held # DM2 with hyperglycemia - A1c 8.6 - increased correction-dose lispro; add basal glargine -metformin, januvia on hold # OUD - Addiction Medicine consulted, tapering methadone # obesity - non-morbid # VTE ppx: LMWH # dispo: LTC placement. PT re-eval given more awake/verbal. attending - dr. felix In my clinical judgment, the patient requires continued inpatient hospitalization for the following reasons: encephalopathy, LTC placement, DANY Quality Stroke Does the patient have a stroke diagnosis?: No VTE Prior VTE?: No VTE Risk Level:: Medical - moderate - high VTE Device Contraindication: Treatment Not Indicated VTE Drug Contraindication: N/A - Med Ordered
--- NOTE | 2022-01-25 15:01 | PC.NURSE ---
while preventing pt from exiting the bed and falling, the patient's IV access was pulled out. Unable to successfully re-establish access, therefore the 0500 vancomycin was unable to be completed and the 1300 ceftriaxone was not given
[2022-01-25 15:34] VITALS: BP 143/64; PULSE 69; RESP 19; TEMP 36.6; O2SAT 97
[2022-01-25 16:04] LABS: Glucose, Whole Blood 154 mg/dL (60-115)
--- NOTE | 2022-01-25 16:24 | P.CNPS_ITS ---
History of Present Illness Date of Service: 01/25/2022 Chief Complaint: Overdose Reason for Consult: agitation Discussed with referring provider: Yes Sources of Information: patient interviewed, chart reviewed and crisis/core team assessment reviewed HPI Narrative: Ms. Cruz is a 57 year old woman with hx of Bipolar Disorder, Opioid Use Disorder. She was brought in via EMS after found unresponsive by her roommate. Per admission note, pt received narcan by EMT with minimal effect. She was admitted to [facility] for evaluation of what was thought to be hypoxic-ischemic encephalophathy and pt was planned to be sent to LT. Pt has been for the most past non response. However, pt yesterday was talking and communicating more. Pt combative at times, trying to ambulate on her own and trying to kick and push staff. Today, pt is in bed. She reports she wants to go to the bathroom, it appears no understanding as it has been explained to her that due to unsteady gait she is high risk for fall and staff does not want her ambulating. When asked if she knows where she is she states in [place]. This morning apparently when seen by hospitalist she was able to tell that she was in the hospital, month and year. Per norbert, who has been with pt for the past 4 hours, pt has been trying to get out of bed, despite multiple times being explained to her that she can't safely ambulate on her own, talking about being somewhere else and asking sitter if she can see things in the air that pt is trying to grab with her hands. Pt did not answer many questions as she appears somewhat somnolent. Past Psychiatric History: Bipolar disorder. Prior inpatient episodes. Previous consults most recent 09/04/2021. No history of suicide attempts. [facility] Medical History Asthma Bipolar disorder Chronic pain Diabetes Hypertension IBS (irritable bowel syndrome) Peripheral neuropathy Polysubstance abuse Seizure Surgical History History of appendectomy Diagnostics Vital Signs (24Hr): Vital Signs - 24 hr 01/24/22 19:39 01/24/22 23:09 01/25/22 03:13 Temperature 96.7 F L 96.9 F 97.2 F Pulse Rate 79 67 70 Respiratory Rate 17 18 19 Blood Pressure 115/75 118/69 120/69 Pulse Oximetry 98 98 98 Oxygen Delivery Method Room Air Room Air Room Air 01/25/22 08:00 01/25/22 11:45 01/25/22 15:34 Temperature 97.5 F 97.1 F 97.8 F Pulse Rate 62 64 69 Respiratory Rate 20 20 19 Blood Pressure 106/51 L 143/58 H 143/64 H Pulse Oximetry 99 98 97 Oxygen Delivery Method Room Air Room Air Room Air BMI result Body Mass Index 35.0 Labs Results: 01/25/22 06:02 01/25/22 06:02 Labs: Laboratory Results - last 48 hr 01/23/22 01/24/22 01/24/22 19:18 06:16 06:16 WBC RBC Hgb Hct MCV MCH MCHC RDW Plt Count MPV Absolute Nucleated RBC Nucleated RBC % (auto) Sodium 139 Potassium 4.1 Chloride 102 Carbon Dioxide 19 L Anion Gap 22 H BUN 48 H D Creatinine 1.90 H Estim Creat Clear Calc 38.2 Estimated GFR 27 POC Glucose 269 H Random Glucose 275 H Calcium 8.8 C-Reactive Protein 5.19 H Procalcitonin 0.12 T.pallidum Ab (EIA) 01/24/22 01/24/22 01/24/22 06:16 07:01 08:53 WBC 15.7 H RBC 4.02 L Hgb 11.1 L Hct 33.9 L MCV 84.3 MCH 27.6 MCHC 32.7 RDW 15.9 Plt Count 233 MPV 11.8 Absolute Nucleated RBC 0.000 Nucleated RBC % (auto) 0.0 Sodium Potassium Chloride Carbon Dioxide Anion Gap BUN Creatinine Estim Creat Clear Calc Estimated GFR POC Glucose 227 H Random Glucose Calcium C-Reactive Protein Procalcitonin T.pallidum Ab (EIA) Nonreactive 01/24/22 01/24/22 01/24/22 11:08 16:18 20:12 WBC RBC Hgb Hct MCV MCH MCHC RDW Plt Count MPV Absolute Nucleated RBC Nucleated RBC % (auto) Sodium Potassium Chloride Carbon Dioxide Anion Gap BUN Creatinine Estim Creat Clear Calc Estimated GFR POC Glucose 251 H 170 H 232 H Random Glucose Calcium C-Reactive Protein Procalcitonin T.pallidum Ab (EIA) 01/25/22 01/25/22 01/25/22 06:02 06:02 07:22 WBC 11.8 H RBC 3.87 L Hgb 10.6 L Hct 32.8 L MCV 84.8 MCH 27.4 MCHC 32.3 RDW 15.8 Plt Count 228 MPV 11.7 Absolute Nucleated RBC 0.000 Nucleated RBC % (auto) 0.0 Sodium 138 Potassium 4.3 Chloride 104 Carbon Dioxide 22 Anion Gap 16 BUN 29 H Creatinine 1.14 Estim Creat Clear Calc 63.6 Estimated GFR 49 POC Glucose 261 H Random Glucose 281 H Calcium 9.1 C-Reactive Protein Procalcitonin T.pallidum Ab (EIA) 01/25/22 01/25/22 11:25 15:59 WBC RBC Hgb Hct MCV MCH MCHC RDW Plt Count MPV Absolute Nucleated RBC Nucleated RBC % (auto) Sodium Potassium Chloride Carbon Dioxide Anion Gap BUN Creatinine Estim Creat Clear Calc Estimated GFR POC Glucose 178 H 154 H Random Glucose Calcium C-Reactive Protein Procalcitonin T.pallidum Ab (EIA) Imaging Radiology Impressions: ITS Impressions Head CT 01/15/22 06:35 IMPRESSION: Suboptimal assessment in some regions due to motion artifact. No acute intracranial pathology identified. Chest X-Ray 01/15/22 10:40 IMPRESSION: Unremarkable examination. Chest X-Ray 01/16/22 11:59 IMPRESSION: No acute cardiopulmonary process. Abdomen/Pelvis CT 01/21/22 18:08 IMPRESSION: 1. No CT evidence of acute intra-abdominal process to explain patient's pain symptoms. 2. Postsurgical changes in the cecum probably prior appendectomy. No CT evidence of dehiscence. 3. Other noncritical findings described above are stable. Chest X-Ray 01/23/22 04:15 IMPRESSION: No acute cardiopulmonary findings Mental Status Exam Mental Status Exam Narrative: Appearance: MO, woman lying in bed, somnolent but responsive, in NAD Behavior: engagement limited due to some degree of somnolence Psychomotor: somnolent Speech: clear, single words, spontaneous- prior to falling asleep TP: goal oriented- wanting to get up TC:wanting to get up, confused as to where she is AH/VH: appears that she was grabbing things that are not there Memory/cog: somnolent but able to be arouse, alternating periods of confusion a nd at this time not oriented to place or situation Medications Medications Current Medications Acetaminophen (Acetaminophen 325 Mg Tablet) 650 mg PO Q6H PRN PRN Reason: Pain, Mild (Pain Scale 1-3) Last Admin: 01/25/22 00:13 Dose: 650 mg Amlodipine Besylate (Amlodipine Besylate 10 Mg Tablet) 10 mg PO DAILY [facility]; Protocol Last Admin: 01/25/22 08:07 Dose: 10 mg Atorvastatin Calcium (Atorvastatin Calcium 20 Mg Tablet) 20 mg PO DAILY [facility] Last Admin: 01/25/22 08:07 Dose: 20 mg Enoxaparin Sodium (Enoxaparin Sodium 40 Mg/0.4 Ml Syringe) 40 mg SUBCUT Q24H [facility] Last Admin: 01/25/22 12:02 Dose: 40 mg Ceftriaxone Sodium 1 gm/ (Sodium Chloride) 50 mls @ 100 mls/hr IV Q24H [facility] Stop: 01/25/22 23:00 Last Infusion: 01/24/22 13:40 Dose: Infused Vancomycin HCl 1,250 mg/ (Sodium Chloride) 250 mls @ 166.667 mls/hr IV Q24H [facility] Insulin Glargine (Insulin Glargine,Hum.Rec.Anlog 100 Unit/Ml 10 Ml Vial) 10 unit SUBCUT DAILY [facility] Last Admin: 01/25/22 08:04 Dose: 10 unit Insulin Human Lispro (Insulin Lispro 100 Unit/Ml 3 Ml Vial) 0 unit SUBCUT QIDACHS [facility]; Protocol Last Admin: 01/25/22 12:01 Dose: 4 unit Lisinopril (Lisinopril 10 Mg Tablet) 30 mg PO DAILY [facility]; Protocol Last Admin: 01/23/22 08:00 Dose: 30 mg Lorazepam (Lorazepam 0.5 Mg Tablet) 0.5 mg PO DAILY PRN PRN Reason: Anxiety Last Admin: 01/25/22 10:56 Dose: 0.5 mg Methadone HCl (Methadone Hcl 20 Mg/2 Ml Oral.Conc) 10 mg PO ONCE ONE Stop: 01/26/22 08:01 Methadone HCl (Methadone Hcl 20 Mg/2 Ml Oral.Conc) 5 mg PO ONCE ONE Stop: 01/27/22 08:01 Pharmacy Consult (Consult Rx Vancomycin Dosing) 1 each MISCELLANE DAILY PRN PRN Reason: Consult order Prazosin HCl (Prazosin Hcl 1 Mg Capsule) 3 mg PO BEDTIME [facility]; Protocol Last Admin: 01/24/22 20:58 Dose: 3 mg Sodium Chloride (0.9 % Sodium Chloride Flush 3 Ml Syringe) 3 ml IVFLUSH QSHIFT [facility] Last Admin: 01/25/22 10:09 Dose: Not Given Allergies Allergies Allergy/AdvReac Type Severity Reaction Status Date / Time morphine [MORPHINE] Allergy Unknown RASH, vomit Verified 01/15/22 00:48 prednisone Allergy Unknown hives Verified 01/15/22 00:48 Sulfa (Sulfonamide Allergy Unknown UNKNOWN, Verified 01/15/22 00:48 Antibiotics) hives [SULFA (SULFONAMIDE ANTIBIOTICS)] Assessment & Plan Assessment & Plan (1) Toxic metabolic encephalopathy: Status: Acute Code(s): G92.8 - Other toxic encephalopathy Plan Ms. Cruz is a 57 year-old woman with hx of Bipolar disorder, opioid use disorder, admitted for hypoxic-ischemic encephalopathy 10 days ago, mostly unresponsive but since yesterday talking more, and more psychomotor agitation. Pt presents with fluctuating orientation, agitated, grabing things that are not there, trying to get out of bed despite redirection- all s/s of hyperactive delirium. PLAN 1. schedule low dose of haldol 2mg po TID- monitor for excessive sedation, EKG, maintain Qtc less than 500ms, maintain k>4, Mg>2. 2. psych to follow pt to monitor improvement in confusional state. I spent minutes with the patient and/or on the patient floor today, greater than?50% of which was spent counseling/coordinating care.
--- NOTE | 2022-01-25 17:45 | ECG_ITS ---
Test Reason : chest pain Blood Pressure : / mmHG Vent. Rate : 068 BPM Atrial Rate : 068 BPM P-R Int : 152 ms QRS Dur : 094 ms QT Int : 432 ms P-R-T Axes : 041 028 066 degrees QTc Int : 459 ms Normal sinus rhythm Nonspecific T wave abnormality RSR' or QR pattern in V1 suggests right ventricular conduction delay Abnormal ECG When compared with ECG of 24-JAN-2022 08:33, No significant changes seen Referred By: Chrissie Simmons Electronically Signed By:ROLANDA CAAL MD
[2022-01-25 19:26] VITALS: BP 149/66; PULSE 88; RESP 18; TEMP 36.4; O2SAT 90
[2022-01-25 20:29] LABS: Glucose, Whole Blood 133 mg/dL (60-115)
[2022-01-25] MEDS: Prazosin HCL 1 MG CAPSULE 3 MG PO (21:43)
[2022-01-25] MEDS: HaloperidoL 1 MG TABLET 2 MG PO (21:43)
[2022-01-26] VITALS: BP 134/60; PULSE 66; RESP 16; TEMP 36.5; O2SAT 94
--- NOTE | 2022-01-26 | ECG_ITS ---
Test Reason : check qt Blood Pressure : / mmHG Vent. Rate : 071 BPM Atrial Rate : 071 BPM P-R Int : 166 ms QRS Dur : 074 ms QT Int : 414 ms P-R-T Axes : 043 034 063 degrees QTc Int : 449 ms Normal sinus rhythm RSR' or QR pattern in V1 suggests right ventricular conduction delay Otherwise normal ECG When compared with ECG of 25-JAN-2022 17:52, T wave amplitude has increased in Inferior leads Lateral leads Referred By: Chrissie Simmons Electronically Signed By:ROLANDA CAAL MD
[2022-01-26 04:00] VITALS: PULSE 56; RESP 16
[2022-01-26 07:07] LABS: Estimated Glomerular Filt Rate 58
--- NOTE | 2022-01-26 07:38 | HE.PHANOTE ---
RE Cherry Continue current dose; next level due for 01/27 @0500. Suspected AUC 506; trough 13.3 Luis
[2022-01-26 08:09] LABS: Magnesium 1.9 mg/dL (1.6-2.6)
[2022-01-26 08:53] VITALS: BP 106/77; PULSE 82; RESP 19; TEMP 36.1; O2SAT 97
[2022-01-26 08:54] LABS: Glucose, Whole Blood 179 mg/dL (60-115)
[2022-01-26] MEDS: Insulin Lispro 100 UNIT/ML 3 ML VIAL SUBCUT ×4 (09:00→20:11)
[2022-01-26] MEDS: Insulin Glargine,Hum.rec.anlog 100 UNIT/ML 10 ML VIAL 10 UNIT SUBCUT (09:00)
[2022-01-26] MEDS: methADONE HCl 20 MG/2 ML ORAL.CONC 10 MG PO (09:01)
[2022-01-26] MEDS: amLODIPine Besylate 10 MG TABLET PO (09:01)
[2022-01-26] MEDS: HaloperidoL 1 MG TABLET 2 MG PO ×3 (09:01→20:03)
[2022-01-26] MEDS: Atorvastatin Calcium 20 MG TABLET PO (09:01)
[2022-01-26 11:38] LABS: Glucose, Whole Blood 215 mg/dL (60-115)
[2022-01-26] MEDS: Enoxaparin Sodium 40 MG/0.4 ML SYRINGE SUBCUT (11:50)
[2022-01-26 12:00] VITALS: BP 110/68; PULSE 86; RESP 18; TEMP 36.9; O2SAT 98
--- NOTE | 2022-01-26 12:15 | HO.PM.IMPN ---
Subjective Subjective Date of Service: 01/26/22 Interval History: seen and examined this morning follow up for encephalopathy Awake and alert. Able to state her name, and that the year is 2021. She thinks she is at her home. She reports that she lives with her fiance Jaxson. Otherwise she remains confused, but is calm and cooperative at this time. Denies pain, chest pain, sob but unreliable historian and difficult to obtain full ROS Neurologic Neurologic: Reports confusion Psychiatric Psychiatric: Reports confusion Physical Exam Vital Signs: Vital Signs: Last Vital Signs Temp 98.4 F 01/26/22 12:00 Pulse 86 01/26/22 12:00 Resp 18 01/26/22 12:00 BP 110/68 01/26/22 12:00 Pulse Ox 98 01/26/22 12:00 O2 Del Method 01/26/22 12:00 O2 Flow Rate 3 01/15/22 12:36 BMI result Body Mass Index 35.0 Const: Other: can state name and age General: alert, awake and confusion Nutritional Appearance: overweight Orientation/consciousness: confusion Resp: Effort & Inspection: normal respiratory effort and able to speak in complete sentences Auscultation: clear to auscultation bilaterally Cardio: Rate: regular rate Heart sounds: S1 normal heart sound present and S2 normal heart sound present GI: Inspection: No distended Palpation (GI): Soft to palpation Neuro: General: no focal motor deficits and confusion Extrem: Other: able to move all 4 extremities spontaneously General: Yes no pedal edema Objective Data Active Medications Acetaminophen (Acetaminophen 325 Mg Tablet) 650 mg PO Q6H PRN PRN Reason: Pain, Mild (Pain Scale 1-3) Last Admin: 01/25/22 00:13 Dose: 650 mg Documented By: GRETCHEN Amlodipine Besylate (Amlodipine Besylate 10 Mg Tablet) 10 mg PO DAILY [facility]; Protocol Last Admin: 01/26/22 09:01 Dose: 10 mg Documented By: KATHERINE Atorvastatin Calcium (Atorvastatin Calcium 20 Mg Tablet) 20 mg PO DAILY [facility] Last Admin: 01/26/22 09:01 Dose: 20 mg Documented By: KATHERINE Enoxaparin Sodium (Enoxaparin Sodium 40 Mg/0.4 Ml Syringe) 40 mg SUBCUT Q24H [facility] Last Admin: 01/26/22 11:50 Dose: 40 mg Documented By: KATHERINE Haloperidol (Haloperidol 1 Mg Tablet) 2 mg PO TID [facility] Last Admin: 01/26/22 09:01 Dose: 2 mg Documented By: KATHERINE Insulin Glargine (Insulin Glargine,Hum.Rec.Anlog 100 Unit/Ml 10 Ml Vial) 10 unit SUBCUT DAILY [facility] Last Admin: 01/26/22 09:00 Dose: 10 unit Documented By: KATHERINE Insulin Human Lispro (Insulin Lispro 100 Unit/Ml 3 Ml Vial) 0 unit SUBCUT QIDACHS [facility]; Protocol Last Admin: 01/26/22 11:50 Dose: 6 unit Documented By: KATHERINE Lisinopril (Lisinopril 10 Mg Tablet) 30 mg PO DAILY [facility]; Protocol Last Admin: 01/23/22 08:00 Dose: 30 mg Documented By: YAMILET Lorazepam (Lorazepam 0.5 Mg Tablet) 0.5 mg PO DAILY PRN PRN Reason: Anxiety Last Admin: 01/25/22 10:56 Dose: 0.5 mg Documented By: KATHERINE Methadone HCl (Methadone Hcl 20 Mg/2 Ml Oral.Conc) 5 mg PO ONCE ONE Stop: 01/27/22 08:01 Pharmacy Consult (Consult Rx Vancomycin Dosing) 1 each MISCELLANE DAILY PRN PRN Reason: Consult order Prazosin HCl (Prazosin Hcl 1 Mg Capsule) 3 mg PO BEDTIME [facility]; Protocol Last Admin: 01/25/22 21:43 Dose: 3 mg Documented By: FLY Sodium Chloride (0.9 % Sodium Chloride Flush 3 Ml Syringe) 3 ml IVFLUSH QSHIFT [facility] Last Admin: 01/26/22 09:01 Dose: Not Given Documented By: KATHERINE Non-Admin Reason: No Access Labs CBC & Chem 7: 01/25/22 06:02 01/26/22 06:14 Labs: Laboratory Results - last 24 hr 01/25/22 01/25/22 01/25/22 15:59 18:13 20:26 Estim Creat Clear Calc Estimated GFR POC Glucose 154 H 133 H Magnesium Troponin I High Sens 4.0 01/26/22 01/26/22 01/26/22 06:14 08:48 11:32 Estim Creat Clear Calc 74.0 Estimated GFR 58 POC Glucose 179 H 215 H Magnesium 1.9 Troponin I High Sens Microbiology Microbiology Results: Microbiology 01/23/22 03:45 Blood Culture - Final Blood - Venous Coag negative Staphylococcus 01/25/22 06:02 Blood Culture - Preliminary Blood - Venous No growth after 24 hours. 01/25/22 06:02 Blood Culture - Preliminary Blood - Venous No growth after 24 hours. Assessment and Plan (1) Acute alteration in mental status: Status: Acute Plan d#9 57yo F with multiple medical issues and multiple prior similar presentations who again arrives with suspected overdose (pt states accidental, not on purpose) with opiates; found down at home; unknown down time # acute toxic/metabolic encephalopathy due to suspected accidental opiate overdose initially presented like anoxic brain injury with no appreciable improvement; suspect hypoxic-ischemic encephalopathy. now patient becoming more awake, appears to have hyperactive delirium seen by neurology brain CT negative EEG CONSISTENT WITH A MARKEDLY ABNORMAL PATTERN SEVERE DIFFUSE DELTA SLOWING CONSISTENT WITH A DIFFUSE ENCEPHALOPATHIC PROCESS. NO EPILEPTIFORM DISCHARGES WERE SEEN RESIDENTIAL [employer] following psych following - started on scheduled haldol - follow QTC # mood on multiple medications at baseline, on hold during admission psych eval for med management # DANY FENa 0.2 suggesting prerenal state resolved, creatinine down to 1.1 lisinopril on hold d/c IVF # 1/2 blood cultures positive for GPC s/p empiric vanco follow final cultures growing coag negative staph - no further treatment indicated # UTI, peters-sensitive E coli s/p treatment with ceftriaxone # HTN - continue amlodipine; lisinopril held # DM2 with hyperglycemia - A1c 8.6 - increased correction-dose lispro; add basal glargine -metformin, januvia on hold # OUD - Addiction Medicine consulted, tapering methadone # obesity - non-morbid # VTE ppx: LMWH # dispo: LTC placement. PT re-eval given more awake/verbal. attending - dr. felix In my clinical judgment, the patient requires continued inpatient hospitalization for the following reasons: encephalopathy, LTC placement Quality Stroke Does the patient have a stroke diagnosis?: No VTE Prior VTE?: No VTE Risk Level:: Medical - moderate - high VTE Device Contraindication: Treatment Not Indicated VTE Drug Contraindication: N/A - Med Ordered
[2022-01-26] MEDS: LORazepam 0.5 MG TABLET PO ×2 (13:28→19:59)
--- NOTE | 2022-01-26 13:33 | P.CNPS_ITS ---
History of Present Illness Date of Service: 01/26/2022 Chief Complaint: Overdose Reason for Consult: delirium f/u Discussed with referring provider: Yes Sources of Information: patient interviewed, chart reviewed and crisis/core team assessment reviewed HPI Narrative: Interim HX: today pt seen at around 2pm. She is able to tell me that she knows that she is in the hospital, in [place]. She reports she does not remember much about what happened but thinks that her mind was foggy. She states she had OD on percocet. She is able to tell me the month, year and date correctly. Per RN- during this shift she has been able to follow commands and not showing impulsive or combative behaviors. This AM when pt was seen by hospitalist, it appears that pt was confused not able to tell where she was. Pt continues to present with fluctuating levels of confusion but overall improvement is noticed. No requirement of IM for combativeness or agitation. Past Psychiatric History: Bipolar disorder. Prior inpatient episodes. Previous consults most recent 09/04/2021. No history of suicide attempts. Review of Systems Review of Systems Unable to obtain Yes all other systems are reviewed and are negative, Unobtainable due to mental status and Other (Unresponsive due to overdose) Constitutional: Denies chills and Denies fever(s) Cardiovascular: Denies chest pain, Denies palpitations and Denies dyspnea Respiratory: Denies cough and Denies dyspnea Gastrointestinal: Denies abdominal pain, Denies nausea and Denies vomiting Reports confusion Psychiatric: Reports confusion Endocrine: Denies palpitations [facility] Medical History Asthma Bipolar disorder Chronic pain Diabetes Hypertension IBS (irritable bowel syndrome) Peripheral neuropathy Polysubstance abuse Seizure Surgical History History of appendectomy Diagnostics Vital Signs (24Hr): Vital Signs - 24 hr 01/26/22 08:53 01/26/22 12:00 01/26/22 15:08 Temperature 97 F 98.4 F 98.8 F Pulse Rate 82 86 76 Respiratory Rate 18 18 Blood Pressure 106/77 110/68 136/63 Pulse Oximetry 97 98 96 Oxygen Delivery Method Room Air Room Air Room Air 01/26/22 19:51 01/27/22 05:49 01/27/22 07:25 Temperature 98.9 F 97.6 F 98.0 F Pulse Rate 61 62 62 Respiratory Rate 18 18 20 Blood Pressure 162/75 H 137/63 117/63 Pulse Oximetry 98 96 97 Oxygen Delivery Method Room Air Room Air Room Air BMI result Body Mass Index 35.0 Labs Results: 01/25/22 06:02 01/27/22 05:44 Labs: Laboratory Results - last 48 hr 01/25/22 01/25/22 01/25/22 06:02 11:25 15:59 Sodium 138 Potassium 4.3 Chloride 104 Carbon Dioxide 22 Anion Gap 16 BUN Creatinine Estim Creat Clear Calc Estimated GFR POC Glucose 178 H 154 H Random Glucose Calcium Magnesium Troponin I High Sens Vancomycin Trough 01/25/22 01/25/22 01/26/22 18:13 20:26 06:14 Sodium Potassium 5.0 Chloride Carbon Dioxide Anion Gap BUN Creatinine 0.98 Estim Creat Clear Calc 74.0 Estimated GFR 58 POC Glucose 133 H Random Glucose Calcium Magnesium 1.9 Troponin I High Sens 4.0 Vancomycin Trough 01/26/22 01/26/22 01/26/22 08:48 11:32 15:11 Sodium Potassium Chloride Carbon Dioxide Anion Gap BUN Creatinine Estim Creat Clear Calc Estimated GFR POC Glucose 179 H 215 H 180 H Random Glucose Calcium Magnesium Troponin I High Sens Vancomycin Trough 01/26/22 01/27/22 01/27/22 19:52 05:44 05:44 Sodium 140 Potassium 4.3 Chloride 100 Carbon Dioxide 30 H Anion Gap 14 BUN 15 Creatinine 1.03 Estim Creat Clear Calc 70.4 Estimated GFR 55 POC Glucose 244 H Random Glucose 209 H Calcium 9.6 Magnesium 1.7 Troponin I High Sens Vancomycin Trough < 2.0 L 01/27/22 07:24 Sodium Potassium Chloride Carbon Dioxide Anion Gap BUN Creatinine Estim Creat Clear Calc Estimated GFR POC Glucose 191 H Random Glucose Calcium Magnesium Troponin I High Sens Vancomycin Trough Imaging Radiology Impressions: ITS Impressions Head CT 01/15/22 06:35 IMPRESSION: Suboptimal assessment in some regions due to motion artifact. No acute intracranial pathology identified. Chest X-Ray 01/15/22 10:40 IMPRESSION: Unremarkable examination. Chest X-Ray 01/16/22 11:59 IMPRESSION: No acute cardiopulmonary process. Abdomen/Pelvis CT 01/21/22 18:08 IMPRESSION: 1. No CT evidence of acute intra-abdominal process to explain patient's pain symptoms. 2. Postsurgical changes in the cecum probably prior appendectomy. No CT evidence of dehiscence. 3. Other noncritical findings described above are stable. Chest X-Ray 01/23/22 04:15 IMPRESSION: No acute cardiopulmonary findings Mental Status Exam Mental Status Exam Narrative: Appearance: MO, woman lying in bed, somnolent but responsive, in NAD Behavior: engagement limited due to some degree of somnolence Psychomotor: somnolent Speech: clear, single words, spontaneous- prior to falling asleep TP: more linear and coherent TC:feeling better AH/VH: none Delusions: none Memory/cog: at time of interview- alert, oriented x 3. Medications Medications Current Medications Acetaminophen (Acetaminophen 325 Mg Tablet) 650 mg PO Q6H PRN PRN Reason: Pain, Mild (Pain Scale 1-3) Last Admin: 01/26/22 17:30 Dose: 650 mg Amlodipine Besylate (Amlodipine Besylate 10 Mg Tablet) 10 mg PO DAILY [facility]; Protocol Last Admin: 01/27/22 08:28 Dose: 10 mg Atorvastatin Calcium (Atorvastatin Calcium 20 Mg Tablet) 20 mg PO DAILY [facility] Last Admin: 01/27/22 08:28 Dose: 20 mg Enoxaparin Sodium (Enoxaparin Sodium 40 Mg/0.4 Ml Syringe) 40 mg SUBCUT Q24H [facility] Last Admin: 01/26/22 11:50 Dose: 40 mg Haloperidol (Haloperidol 1 Mg Tablet) 2 mg PO TID [facility] Last Admin: 01/27/22 08:28 Dose: 2 mg Insulin Glargine (Insulin Glargine,Hum.Rec.Anlog 100 Unit/Ml 10 Ml Vial) 10 unit SUBCUT DAILY [facility] Last Admin: 01/27/22 08:29 Dose: 10 unit Insulin Human Lispro (Insulin Lispro 100 Unit/Ml 3 Ml Vial) 0 unit SUBCUT QIDACHS [facility]; Protocol Last Admin: 01/27/22 08:29 Dose: 4 unit Lisinopril (Lisinopril 10 Mg Tablet) 30 mg PO DAILY [facility]; Protocol Last Admin: 01/23/22 08:00 Dose: 30 mg Lorazepam (Lorazepam 0.5 Mg Tablet) 0.5 mg PO DAILY PRN PRN Reason: Anxiety Last Admin: 01/26/22 13:28 Dose: 0.5 mg Melatonin (Melatonin 3 Mg Tablet) 6 mg PO BEDTIME PRN PRN Reason: insmonia Last Admin: 01/26/22 23:14 Dose: 6 mg Pharmacy Consult (Consult Rx Vancomycin Dosing) 1 each MISCELLANE DAILY PRN PRN Reason: Consult order Prazosin HCl (Prazosin Hcl 1 Mg Capsule) 3 mg PO BEDTIME [facility]; Protocol Last Admin: 01/26/22 20:03 Dose: 3 mg Sodium Chloride (0.9 % Sodium Chloride Flush 3 Ml Syringe) 3 ml IVFLUSH QSHIFT [facility] Last Admin: 01/27/22 08:30 Dose: 3 ml Allergies Allergies Allergy/AdvReac Type Severity Reaction Status Date / Time morphine [MORPHINE] Allergy Unknown RASH, vomit Verified 01/15/22 00:48 prednisone Allergy Unknown hives Verified 01/15/22 00:48 Sulfa (Sulfonamide Allergy Unknown UNKNOWN, Verified 01/15/22 00:48 Antibiotics) hives [SULFA (SULFONAMIDE ANTIBIOTICS)] Assessment & Plan Assessment & Plan (1) Acute alteration in mental status: Status: Acute Code(s): R41.82 - Altered mental status, unspecified Plan Ms. Cruz is a 57 year-old woman with hx of Bipolar disorder, opioid use disorder, admitted for hypoxic-ischemic encephalopathy 10 days ago, mostly unresponsive but since yesterday talking more, and more psychomotor agitation. Pt presents with fluctuating orientation, agitated, grabbing things that are not there, trying to get out of bed despite redirection- all s/s of hyperactive delirium. 01/26- Pt continues to present with fluctuating levels of confusion but overall improvement is noticed. No requirement of IM for combativeness or agitation in past 24 hrs. continue scheduled haldol 2mg po TID, monitor Qtc less than 500ms, maintain K>4, Mg>2. hold for excessive sedation. recommend not to discharge until complete resolution of delirum- hopefully few more days to see more consistent improvement and orientation. I spent minutes with the patient and/or on the patient floor today, greater than?50% of which was spent counseling/coordinating care.
[2022-01-26 15:08] VITALS: BP 136/63; PULSE 76; RESP 18; TEMP 37.1; O2SAT 96
[2022-01-26 15:46] LABS: Glucose, Whole Blood 180 mg/dL (60-115)
--- NOTE | 2022-01-26 16:03 | MHC.SL.SWA ---
Speech Pathologist Impression: Oral phase dysphagia Risk of Aspiration Due to: Reduced Cognition Dysphasia Diet Status: Recommend UPGRADE to CHOPPED/ADVANCED (NDD3) solids, THIN liquids, pills WHOLE in LIQUID. Pt is able to feed herself. Recommend supervision during meals, provide cues as needed for aspiration precautions. Updated RN, RD, MD of recommendation. Diet order updated by INS[employer]. Liquid Consistency and Strategies for Safe Swallow: Liquid Intake Recommendation: Thin Liquid Intake Strategies: Small Sips Solid Food Consistency: Dietary Recommendations: Chopped/Advanced (NDD3) Additional Modifications to Solid Foods: Moisten food with sauce/gravy Oral Medication Intake: Whole with Liquid Please contact the pharmacy regarding appropriate crushable or liquid drug formulations that are available whenever modified delivery is recommended. Compensatory Strategies and Precautions to be Taken for Safe Swallow: Sitting Upright (90 deg) Small Bites and Sips Alternate Liquids/Solids Rate of Ingestion Change Avoid Specific Foods Supervision While Eating and Drinking for Safe Swallow: Total Supervision (1:1) Foods to Avoid: Mixed consistencies (e.g. cereal and milk, thin soups with pieces of veg/meat). Sticky foods. Hard solids. Swallowing Recommended Treatments: Compens. Strategy Educat. Recommendation for Speech: Inpatient Speech Therapy- 1 f/u Research Intern Clinican/Clinical Fellow: Yes: Mo[place] Supervisory Statement: I have reviewed and agree with the student/clinical fellow's documentation: N/A Speech Language Pathologist: Vale Shell M.A., CCC-[employer]
[2022-01-26] MEDS: Acetaminophen 325 MG TABLET 650 MG PO (17:30)
[2022-01-26 19:51] VITALS: BP 162/75; PULSE 61; RESP 18; TEMP 37.2; O2SAT 98
[2022-01-26 20:02] LABS: Glucose, Whole Blood 244 mg/dL (60-115)
[2022-01-26] MEDS: Prazosin HCL 1 MG CAPSULE 3 MG PO (20:03)
[2022-01-26] MEDS: Melatonin 3 MG TABLET 6 MG PO (23:14)
--- NOTE | 2022-01-27 | ECG_ITS ---
Test Reason : QCT Blood Pressure : / mmHG Vent. Rate : 064 BPM Atrial Rate : 064 BPM P-R Int : 182 ms QRS Dur : 082 ms QT Int : 436 ms P-R-T Axes : 028 024 047 degrees QTc Int : 449 ms Normal sinus rhythm RSR' or QR pattern in V1 suggests right ventricular conduction delay Otherwise normal ECG When compared with ECG of 26-JAN-2022 11:21, No significant change was found Referred By: Chrissie Simmons Electronically Signed By:ROLANDA CAAL MD
[2022-01-27 05:49] VITALS: BP 137/63; PULSE 62; RESP 18; TEMP 36.4; O2SAT 96
[2022-01-27 06:23] LABS: Vancomycin Trough < 2.0 mcg/mL (10.0-20.0)
[2022-01-27 06:24] LABS: Anion Gap 14 (12-20); Blood Urea Nitrogen 15 mg/dL (9-16); Calcium 9.6 mg/dL (8.4-10.2); Carbon Dioxide 30 mmol/L (22-29); Chloride 100 mmol/L (96-108); Creatinine Clr Calc Pharmacy 70.4; Estimated Glomerular Filt Rate 55; Glucose Random 209 mg/dL (60-115); Magnesium 1.7 mg/dL (1.6-2.6); Potassium 4.3 mmol/L (3.3-5.1); Sodium 140 mmol/L (135-145)
[2022-01-27 07:25] VITALS: BP 117/63; PULSE 62; RESP 20; TEMP 36.7; O2SAT 97
[2022-01-27 07:55] LABS: Glucose, Whole Blood 191 mg/dL (60-115)
[2022-01-27] MEDS: HaloperidoL 1 MG TABLET 2 MG PO ×3 (08:28→21:00)
[2022-01-27] MEDS: Atorvastatin Calcium 20 MG TABLET PO (08:28)
[2022-01-27] MEDS: amLODIPine Besylate 10 MG TABLET PO (08:28)
[2022-01-27] MEDS: Insulin Lispro 100 UNIT/ML 3 ML VIAL SUBCUT ×4 (08:29→21:00)
[2022-01-27] MEDS: methADONE HCl 20 MG/2 ML ORAL.CONC 5 MG PO (08:29)
[2022-01-27] MEDS: Insulin Glargine,Hum.rec.anlog 100 UNIT/ML 10 ML VIAL 10 UNIT SUBCUT (08:29)
[2022-01-27 11:26] VITALS: BP 124/59; PULSE 60; RESP 20; TEMP 36.2; O2SAT 100
[2022-01-27 11:34] LABS: Glucose, Whole Blood 246 mg/dL (60-115)
[2022-01-27] MEDS: Enoxaparin Sodium 40 MG/0.4 ML SYRINGE SUBCUT (12:17)
[2022-01-27] MEDS: LORazepam 0.5 MG TABLET PO (12:17)
--- NOTE | 2022-01-27 12:57 | P.PNIM_ITS ---
Subjective Subjective Date of Service: 01/27/22 Interval History: Seen and examined this morning Follow-up for encephalopathy Awake and alert, still confused but seems to be improving no specific complaints this morning Review of Systems Review of Systems: Yes all other systems are reviewed and are negative Constitutional Constitutional: Denies chills and Denies fever(s) Cardiovascular Cardiovascular: Denies chest pain, Denies palpitations and Denies dyspnea Respiratory Respiratory: Denies cough and Denies dyspnea Gastrointestinal Gastrointestinal: Denies abdominal pain, Denies diarrhea, Denies nausea and Denies vomiting Endocrine Endocrine: Denies palpitations Physical Exam Vital Signs: Vital Signs: Last Vital Signs Temp 97.2 F 01/27/22 11:26 Pulse 60 01/27/22 11:26 Resp 20 01/27/22 11:26 BP 124/59 L 01/27/22 11:26 Pulse Ox 100 01/27/22 11:26 O2 Del Method 01/27/22 11:26 O2 Flow Rate 3 01/15/22 12:36 BMI result Body Mass Index 35.0 Const: General: cooperative, comfortable, alert and awake Nutritional Appearance: overweight Resp: Effort & Inspection: normal respiratory effort and able to speak in complete sentences Auscultation: clear to auscultation bilaterally Cardio: Rate: regular rate Heart sounds: S1 normal heart sound present and S2 normal heart sound present GI: Inspection: No distended Palpation (GI): Soft to palpation Neuro: Other: grossly nonfocal General: no focal motor deficits Extrem: Other: able to move all 4 extremities spontaneously General: Yes no pedal edema Objective Data Active Medications Acetaminophen (Acetaminophen 325 Mg Tablet) 650 mg PO Q6H PRN PRN Reason: Pain, Mild (Pain Scale 1-3) Last Admin: 01/26/22 17:30 Dose: 650 mg Documented By: KATHERINE Amlodipine Besylate (Amlodipine Besylate 10 Mg Tablet) 10 mg PO DAILY [facility]; Protocol Last Admin: 01/27/22 08:28 Dose: 10 mg Documented By: HEMAL Atorvastatin Calcium (Atorvastatin Calcium 20 Mg Tablet) 20 mg PO DAILY [facility] Last Admin: 01/27/22 08:28 Dose: 20 mg Documented By: HEMAL Enoxaparin Sodium (Enoxaparin Sodium 40 Mg/0.4 Ml Syringe) 40 mg SUBCUT Q24H [facility] Last Admin: 01/27/22 12:17 Dose: 40 mg Documented By: HEMAL Haloperidol (Haloperidol 1 Mg Tablet) 2 mg PO TID [facility] Last Admin: 01/27/22 08:28 Dose: 2 mg Documented By: HEMAL Magnesium Sulfate (Magnesium Sulfate/H2o) 2 gm in 50 mls @ 25 mls/hr IV ONCE ONE Stop: 01/27/22 13:02 Insulin Glargine (Insulin Glargine,Hum.Rec.Anlog 100 Unit/Ml 10 Ml Vial) 10 unit SUBCUT DAILY [facility] Last Admin: 01/27/22 08:29 Dose: 10 unit Documented By: HEMAL Insulin Human Lispro (Insulin Lispro 100 Unit/Ml 3 Ml Vial) 0 unit SUBCUT QIDACHS [facility]; Protocol Last Admin: 01/27/22 12:18 Dose: 6 unit Documented By: HEMAL Lisinopril (Lisinopril 10 Mg Tablet) 30 mg PO DAILY [facility]; Protocol Last Admin: 01/23/22 08:00 Dose: 30 mg Documented By: YAMILET Lorazepam (Lorazepam 0.5 Mg Tablet) 0.5 mg PO DAILY PRN PRN Reason: Anxiety Last Admin: 01/27/22 12:17 Dose: 0.5 mg Documented By: HEMAL Comments: MD notified Melatonin (Melatonin 3 Mg Tablet) 6 mg PO BEDTIME PRN PRN Reason: insmonia Last Admin: 01/26/22 23:14 Dose: 6 mg Documented By: JULIETTE Pharmacy Consult (Consult Rx Vancomycin Dosing) 1 each MISCELLANE DAILY PRN PRN Reason: Consult order Prazosin HCl (Prazosin Hcl 1 Mg Capsule) 3 mg PO BEDTIME [facility]; Protocol Last Admin: 01/26/22 20:03 Dose: 3 mg Documented By: JULIETTE Sodium Chloride (0.9 % Sodium Chloride Flush 3 Ml Syringe) [facility] Last Admin: 01/27/22 08:30 Dose: 3 ml Documented By: HEMAL Labs CBC & Chem 7: 01/25/22 06:02 01/27/22 05:44 Labs: Laboratory Results - last 24 hr 01/26/22 01/26/22 01/27/22 15:11 19:52 05:44 Anion Gap Estim Creat Clear Calc Estimated GFR POC Glucose 180 H 244 H Random Glucose Calcium Magnesium Vancomycin Trough < 2.0 L 01/27/22 01/27/22 01/27/22 05:44 07:24 11:28 Anion Gap 14 Estim Creat Clear Calc 70.4 Estimated GFR 55 POC Glucose 191 H 246 H Random Glucose 209 H Calcium 9.6 Magnesium 1.7 Vancomycin Trough Microbiology Microbiology Results: Microbiology 01/25/22 06:02 Blood Culture - Preliminary Blood - Venous No growth after 48 hours. 01/25/22 06:02 Blood Culture - Preliminary Blood - Venous No growth after 48 hours. 01/23/22 03:45 Blood Culture - Final Blood - Venous Coag negative Staphylococcus Assessment and Plan (1) Toxic metabolic encephalopathy: Status: Acute Plan 57yo F with multiple medical issues and multiple prior similar presentations who again arrives with suspected overdose (pt states accidental, not on purpose) with opiates; found down at home; unknown down time acute toxic/metabolic encephalopathy due to suspected accidental opiate overdose initially presented like anoxic brain injury with no appreciable improvement; suspect hypoxic-ischemic encephalopathy. now patient becoming more awake, appears to have hyperactive delirium seen by neurology brain CT negative EEG CONSISTENT WITH A MARKEDLY ABNORMAL PATTERN SEVERE DIFFUSE DELTA SLOWING CONSISTENT WITH A DIFFUSE ENCEPHALOPATHIC PROCESS. 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 following psych following - started on scheduled haldol - follow QTC mood on multiple medications at baseline, on hold during admission psych eval for med management DANY FENa 0.2 suggesting prerenal state resolved, creatinine down to 1.1 lisinopril on hold d/c IVF 1/2 blood cultures positive for GPC s/p empiric vanco follow final cultures growing coag negative staph - no further treatment indicated UTI, peters-sensitive E coli s/p treatment with ceftriaxone HTN - continue amlodipine; lisinopril held DM2 with hyperglycemia A1c 8.6 - increased correction-dose lispro; add basal glargine -metformin, januvia on hold OUD - Addiction Medicine consulted, tapered methadone obesity - non-morbid VTE ppx: LMWH dispo: LTC placement. PT re-eval given more awake/verbal. attending - dr. ashford HCP has been invoked - Discussed with pt HCP Jaxson Walton, he wishes to defer to pt daughter Liseth In my clinical judgment, the patient requires continued inpatient hospitalization for the following reasons: encephalopathy, LTC placement Quality Stroke Does the patient have a stroke diagnosis?: No VTE Prior VTE?: No VTE Risk Level:: Medical - moderate - high VTE Device Contraindication: Treatment Not Indicated VTE Drug Contraindication: N/A - Med Ordered
[2022-01-27] MEDS: Magnesium Oxide 400 MG TABLET PO (15:02)
[2022-01-27 15:38] VITALS: BP 123/56; PULSE 74; RESP 16; TEMP 36; O2SAT 99
[2022-01-27 16:32] LABS: Glucose, Whole Blood 233 mg/dL (60-115)
[2022-01-27] MEDS: QUEtiapine Fumarate 50 MG TABLET PO (16:48)
[2022-01-27 19:13] VITALS: BP 115/58; PULSE 76; RESP 16; TEMP 36.2; O2SAT 99
[2022-01-27 20:09] LABS: Glucose, Whole Blood 241 mg/dL (60-115)
[2022-01-27] MEDS: Prazosin HCL 1 MG CAPSULE 3 MG PO (20:59)
[2022-01-27 23:07] VITALS: BP 161/83; PULSE 84; RESP 18; TEMP 37; O2SAT 97
[2022-01-27] MEDS: Melatonin 3 MG TABLET 6 MG PO (23:20)
--- NOTE | 2022-01-28 | ECG_ITS ---
Test Reason : check qtc Blood Pressure : / mmHG Vent. Rate : 070 BPM Atrial Rate : 070 BPM P-R Int : 178 ms QRS Dur : 082 ms QT Int : 414 ms P-R-T Axes : 026 008 029 degrees QTc Int : 447 ms Normal sinus rhythm RSR' or QR pattern in V1 suggests right ventricular conduction delay Otherwise normal ECG When compared with ECG of 27-JAN-2022 08:39, No significant changes seen Referred By: Chrissie Simmons Electronically Signed By:ROLANDA CAAL MD
[2022-01-28 03:32] VITALS: BP 140/71; PULSE 80; RESP 20; TEMP 37; O2SAT 96
[2022-01-28] MEDS: QUEtiapine Fumarate 50 MG TABLET PO ×2 (04:21→18:47)
[2022-01-28 07:30] VITALS: BP 123/57; PULSE 76; RESP 18; TEMP 36.2; O2SAT 96
[2022-01-28 07:31] LABS: Glucose, Whole Blood 236 mg/dL (60-115)
[2022-01-28 08:06] LABS: Blood Urea Nitrogen 21 mg/dL (9-16); Creatinine Clr Calc Pharmacy 61.5; Estimated Glomerular Filt Rate 47; Glucose Random 265 mg/dL (60-115); Magnesium 1.9 mg/dL (1.6-2.6)
[2022-01-28] MEDS: HaloperidoL 1 MG TABLET 2 MG PO ×3 (08:30→19:57)
[2022-01-28] MEDS: Atorvastatin Calcium 20 MG TABLET PO (08:31)
[2022-01-28] MEDS: Insulin Glargine,Hum.rec.anlog 100 UNIT/ML 10 ML VIAL 10 UNIT SUBCUT (08:31)
[2022-01-28] MEDS: Insulin Lispro 100 UNIT/ML 3 ML VIAL SUBCUT ×4 (08:31→19:58)
[2022-01-28] MEDS: Magnesium Oxide 400 MG TABLET PO (08:31)
[2022-01-28] MEDS: amLODIPine Besylate 10 MG TABLET PO (08:31)
[2022-01-28 08:33] LABS: Anion Gap 19 (12-20); Calcium 10.2 mg/dL (8.4-10.2); Carbon Dioxide 27 mmol/L (22-29); Chloride 97 mmol/L (96-108); Potassium 5.3 mmol/L (3.3-5.1); Sodium 138 mmol/L (135-145)
[2022-01-28 11:02] VITALS: BP 119/59; PULSE 78; RESP 20; TEMP 36.1; O2SAT 98
--- NOTE | 2022-01-28 11:35 | P.PNIM_ITS ---
Subjective Subjective Date of Service: 01/28/22 Interval History: seen and examined this morning follow up for encephalopathy a little sleepy this morning, no overnight events noted no specific complaints this morning Review of Systems Review of Systems: Yes all other systems are reviewed and are negative Constitutional Constitutional: Denies chills and Denies fever(s) Cardiovascular Cardiovascular: Denies chest pain, Denies palpitations and Denies dyspnea Respiratory Respiratory: Denies cough and Denies dyspnea Gastrointestinal Gastrointestinal: Denies abdominal pain, Denies diarrhea, Denies nausea and Denies vomiting Endocrine Endocrine: Denies palpitations Physical Exam Vital Signs: Vital Signs: Last Vital Signs Temp 96.9 F 01/28/22 11:02 Pulse 78 01/28/22 11:02 Resp 20 01/28/22 11:02 BP 119/59 L 01/28/22 11:02 Pulse Ox 98 01/28/22 11:02 O2 Del Method 01/28/22 11:02 O2 Flow Rate 3 01/15/22 12:36 BMI result Body Mass Index 35.0 Const: Other: able to state name, location and why she is in the hospital continues to refer to roommate Jaxson as fiance or boyfriend General: cooperative, comfortable, alert and awake Nutritional Appearance: overweight Resp: Effort & Inspection: normal respiratory effort and able to speak in complete sentences Auscultation: clear to auscultation bilaterally Cardio: Rate: regular rate Heart sounds: S1 normal heart sound present and S2 normal heart sound present GI: Inspection: No distended Palpation (GI): Soft to palpation Neuro: Other: grossly nonfocal General: no focal motor deficits Extrem: Other: able to move all 4 extremities spontaneously General: Yes no pedal edema Objective Data Active Medications Acetaminophen (Acetaminophen 325 Mg Tablet) 650 mg PO Q6H PRN PRN Reason: Pain, Mild (Pain Scale 1-3) Last Admin: 01/26/22 17:30 Dose: 650 mg Documented By: KATHERINE Amlodipine Besylate (Amlodipine Besylate 10 Mg Tablet) 10 mg PO DAILY [facility]; Protocol Last Admin: 01/28/22 08:31 Dose: 10 mg Documented By: HEMAL Atorvastatin Calcium (Atorvastatin Calcium 20 Mg Tablet) 20 mg PO DAILY [facility] Last Admin: 01/28/22 08:31 Dose: 20 mg Documented By: HEMAL Enoxaparin Sodium (Enoxaparin Sodium 40 Mg/0.4 Ml Syringe) 40 mg SUBCUT Q24H [facility] Last Admin: 01/27/22 12:17 Dose: 40 mg Documented By: HEMAL Haloperidol (Haloperidol 1 Mg Tablet) 2 mg PO TID [facility] Last Admin: 01/28/22 08:30 Dose: 2 mg Documented By: HEMAL Insulin Glargine (Insulin Glargine,Hum.Rec.Anlog 100 Unit/Ml 10 Ml Vial) 10 unit SUBCUT DAILY [facility] Last Admin: 01/28/22 08:31 Dose: 10 unit Documented By: HEMAL Insulin Human Lispro (Insulin Lispro 100 Unit/Ml 3 Ml Vial) 0 unit SUBCUT QIDACHS [facility]; Protocol Last Admin: 01/28/22 08:31 Dose: 6 unit Documented By: HEMAL Lorazepam (Lorazepam 0.5 Mg Tablet) 0.5 mg PO DAILY PRN PRN Reason: Anxiety Last Admin: 01/27/22 12:17 Dose: 0.5 mg Documented By: HEMAL Comments: notified Magnesium Oxide (Magnesium Oxide 400 Mg Tablet) 400 mg PO DAILY [facility] Last Admin: 01/28/22 08:31 Dose: 400 mg Documented By: HEMAL Melatonin (Melatonin 3 Mg Tablet) 6 mg PO BEDTIME PRN PRN Reason: insmonia Last Admin: 01/27/22 23:20 Dose: 6 mg Documented By: JULIETTE Pharmacy Consult (Consult Rx Vancomycin Dosing) 1 each MISCELLANE DAILY PRN PRN Reason: Consult order Prazosin HCl (Prazosin Hcl 1 Mg Capsule) 3 mg PO BEDTIME [facility]; Protocol Last Admin: 01/27/22 20:59 Dose: 3 mg Documented By: JULIETTE Quetiapine Fumarate (Quetiapine Fumarate 50 Mg Tablet) 50 mg PO BID PRN PRN Reason: agitation, anxiety Last Admin: 01/28/22 04:21 Dose: 50 mg Documented By: JULIETTE Sodium Chloride (0.9 % Sodium Chloride Flush 3 Ml Syringe) 3 ml IVFLUSH QSHIFT [facility] Last Admin: 01/28/22 08:32 Dose: Not Given Documented By: HEMAL Non-Admin Reason: No Access Labs CBC & Chem 7: 01/25/22 06:02 01/28/22 07:03 Labs: Laboratory Results - last 24 hr 01/27/22 01/27/22 01/28/22 16:13 19:53 07:03 Anion Gap 19 Estim Creat Clear Calc 61.5 Estimated GFR 47 POC Glucose 233 H 241 H Random Glucose 265 H Calcium 10.2 D Magnesium 1.9 01/28/22 01/28/22 07:03 07:27 Anion Gap Estim Creat Clear Calc Estimated GFR POC Glucose 236 H Random Glucose Calcium Magnesium Cancelled Microbiology Microbiology Results: Microbiology 01/23/22 03:45 Blood Culture - Final Blood - Venous No growth after 5 days. 01/25/22 06:02 Blood Culture - Preliminary Blood - Venous No growth after 48 hours. 01/25/22 06:02 Blood Culture - Preliminary Blood - Venous No growth after 48 hours. Assessment and Plan (1) Accidental overdose: Status: Acute (2) Opioid use disorder: Status: Acute (3) Toxic metabolic encephalopathy: Status: Acute Plan 57yo F with multiple medical issues and multiple prior similar presentations who again arrives with suspected overdose (pt states accidental, not on purpose) with opiates; found down at home; unknown down time acute toxic/metabolic encephalopathy due to suspected accidental opiate overdose initially presented like anoxic brain injury with no appreciable improvement; suspect hypoxic-ischemic encephalopathy. now patient becoming more awake, appears to have hyperactive delirium, slowly improving seen by neurology. brain CT negative EEG CONSISTENT WITH A MARKEDLY ABNORMAL PATTERN SEVERE DIFFUSE DELTA SLOWING CONSISTENT WITH A DIFFUSE ENCEPHALOPATHIC PROCESS. NO EPILEPTIFORM DISCHARGES WERE SEEN HOME [employer] following psych following - started on scheduled haldol - follow QTC; goal mag >2, K >4 mood on multiple medications at baseline, on hold during admission psych eval for med management DANY FENa 0.2 suggesting prerenal state resolved lisinopril on hold Mild hyperkalemia repeat BMP in am 1/2 blood cultures positive for GPC s/p empiric vanco follow final cultures growing coag negative staph. contaminant - no further treatment indicated UTI, peters-sensitive E coli s/p treatment with ceftriaxone HTN - continue amlodipine; lisinopril held DM2 with hyperglycemia A1c 8.6 -increased correction-dose lispro; add basal glargine -metformin, januvia on hold OUD - Addiction Medicine consulted, s/p methadone taper obesity - non-morbid VTE ppx: LMWH dispo: LTC placement. PT re-eval given more awake/verbal. attending - dr. ashford HCP has been invoked - Discussed with pt HCP Jaxson Walton, he wishes to defer to pt daughter Liseth. He states he is patient's roommate and is not significant other. Spoke with Harjinder Childers, she is agreeable to be HCP and is in agreement with current plan In my clinical judgment, the patient requires continued inpatient hospitalization for the following reasons: encephalopathy, LTC placement Quality Stroke Does the patient have a stroke diagnosis?: No VTE Prior VTE?: No VTE Risk Level:: Medical - moderate - high VTE Device Contraindication: Treatment Not Indicated VTE Drug Contraindication: N/A - Med Ordered
[2022-01-28 11:48] LABS: Glucose, Whole Blood 265 mg/dL (60-115)
[2022-01-28] MEDS: Enoxaparin Sodium 40 MG/0.4 ML SYRINGE SUBCUT (12:16)
[2022-01-28] MEDS: Acetaminophen 325 MG TABLET 650 MG PO ×2 (13:24→19:57)
[2022-01-28 15:38] VITALS: BP 122/61; PULSE 71; RESP 16; TEMP 36.1; O2SAT 96
[2022-01-28] MEDS: polyethylene glycoL 3350 17 GM POWD.PACK PO (16:25)
[2022-01-28 16:29] LABS: Glucose, Whole Blood 177 mg/dL (60-115)
[2022-01-28 19:05] VITALS: BP 105/55; PULSE 73; RESP 17; TEMP 36; O2SAT 99
[2022-01-28 19:45] LABS: Glucose, Whole Blood 358 mg/dL (60-115)
[2022-01-28] MEDS: Docusate Sodium 100 MG CAPSULE PO (19:57)
[2022-01-28] MEDS: Prazosin HCL 1 MG CAPSULE 3 MG PO (19:57)
[2022-01-28] MEDS: hydrOXYzine HCL 25 MG TABLET PO (22:37)
[2022-01-28 23:16] VITALS: BP 147/71; PULSE 80; RESP 18; TEMP 37.2; O2SAT 97
[2022-01-29 03:17] VITALS: BP 135/63; PULSE 73; RESP 20; TEMP 37; O2SAT 98
[2022-01-29] MEDS: LORazepam 0.5 MG TABLET PO (05:03)
[2022-01-29 07:06] VITALS: BP 119/64; PULSE 66; RESP 18; TEMP 36; O2SAT 99
[2022-01-29 07:27] LABS: Blood Urea Nitrogen 21 mg/dL (9-16); Calcium 10.3 mg/dL (8.4-10.2); Creatinine Clr Calc Pharmacy 62.5; Estimated Glomerular Filt Rate 48; Glucose Random 307 mg/dL (60-115)
[2022-01-29 07:35] LABS: Anion Gap 16 (12-20); Carbon Dioxide 36 mmol/L (22-29); Chloride 93 mmol/L (96-108); Potassium 4.8 mmol/L (3.3-5.1); Sodium 140 mmol/L (135-145)
[2022-01-29 07:50] LABS: Glucose, Whole Blood 225 mg/dL (60-115)
[2022-01-29] MEDS: amLODIPine Besylate 10 MG TABLET PO (08:02)
[2022-01-29] MEDS: HaloperidoL 1 MG TABLET 2 MG PO ×3 (08:02→20:52)
[2022-01-29] MEDS: Insulin Glargine,Hum.rec.anlog 100 UNIT/ML 10 ML VIAL 10 UNIT SUBCUT (08:03)
[2022-01-29] MEDS: Insulin Lispro 100 UNIT/ML 3 ML VIAL SUBCUT ×4 (08:03→20:52)
[2022-01-29] MEDS: Magnesium Oxide 400 MG TABLET PO (08:03)
[2022-01-29] MEDS: Atorvastatin Calcium 20 MG TABLET PO (08:03)
[2022-01-29] MEDS: Acetaminophen 325 MG TABLET 650 MG PO ×2 (10:14→19:34)
[2022-01-29 11:24] VITALS: BP 146/65; PULSE 74; RESP 18; TEMP 36.3; O2SAT 99
[2022-01-29 11:59] LABS: Glucose, Whole Blood 207 mg/dL (60-115)
[2022-01-29] MEDS: QUEtiapine Fumarate 50 MG TABLET PO (12:00)
[2022-01-29] MEDS: Enoxaparin Sodium 40 MG/0.4 ML SYRINGE SUBCUT (12:01)
--- NOTE | 2022-01-29 13:46 | HO.PM.IMPN ---
Subjective Subjective Date of Service: 01/29/22 Interval History: Follow up for encephalopathy better today,mpre awake, ambulating no specific complaints this morning Review of Systems Review of Systems: Yes all other systems are reviewed and are negative Constitutional Constitutional: Denies chills and Denies fever(s) Cardiovascular Cardiovascular: Denies chest pain, Denies palpitations and Denies dyspnea Respiratory Respiratory: Denies cough and Denies dyspnea Gastrointestinal Gastrointestinal: Denies abdominal pain, Denies diarrhea, Denies nausea and Denies vomiting Endocrine Endocrine: Denies palpitations Physical Exam Vital Signs: Vital Signs: Last Vital Signs Temp 97.3 F 01/29/22 11:24 Pulse 74 01/29/22 11:24 Resp 18 01/29/22 11:24 BP 146/65 H 01/29/22 11:24 Pulse Ox 99 01/29/22 11:24 O2 Del Method 01/29/22 11:24 O2 Flow Rate 3 01/15/22 12:36 BMI result Body Mass Index 35.0 Appearing in no acute distress lung sounds are clear to auscultation heart regular rate rhythm, clear S1, S2 positive bowel sounds, abdomen is soft, nontender neuro patient is alert x3, no focal deficits Objective Data Active Medications Acetaminophen (Acetaminophen 325 Mg Tablet) 650 mg PO Q6H PRN PRN Reason: Pain, Mild (Pain Scale 1-3) Last Admin: 01/29/22 10:14 Dose: 650 mg Documented By: HERB Amlodipine Besylate (Amlodipine Besylate 10 Mg Tablet) 10 mg PO DAILY [facility]; Protocol Last Admin: 01/29/22 08:02 Dose: 10 mg Documented By: HERB Atorvastatin Calcium (Atorvastatin Calcium 20 Mg Tablet) 20 mg PO DAILY [facility] Last Admin: 01/29/22 08:03 Dose: 20 mg Documented By: HERB Docusate Sodium (Docusate Sodium 100 Mg Capsule) 100 mg PO BEDTIME [facility] Last Admin: 01/28/22 19:57 Dose: 100 mg Documented By: STAN Enoxaparin Sodium (Enoxaparin Sodium 40 Mg/0.4 Ml Syringe) 40 mg SUBCUT Q24H [facility] Last Admin: 01/29/22 12:01 Dose: 40 mg Documented By: HERB Haloperidol (Haloperidol 1 Mg Tablet) 2 mg PO TID [facility] Last Admin: 01/29/22 08:02 Dose: 2 mg Documented By: HERB Insulin Glargine (Insulin Glargine,Hum.Rec.Anlog 100 Unit/Ml 10 Ml Vial) 10 unit SUBCUT DAILY [facility] Last Admin: 01/29/22 08:03 Dose: 10 unit Documented By: HERB Insulin Human Lispro (Insulin Lispro 100 Unit/Ml 3 Ml Vial) 0 unit SUBCUT QIDACHS [facility]; Protocol Last Admin: 01/29/22 12:07 Dose: 6 unit Documented By: HERB Lorazepam (Lorazepam 0.5 Mg Tablet) 0.5 mg PO DAILY PRN PRN Reason: Anxiety Last Admin: 01/29/22 05:03 Dose: 0.5 mg Documented By: STAN Magnesium Oxide (Magnesium Oxide 400 Mg Tablet) 400 mg PO DAILY [facility] Last Admin: 01/29/22 08:03 Dose: 400 mg Documented By: HERB Melatonin (Melatonin 3 Mg Tablet) 6 mg PO BEDTIME PRN PRN Reason: insmonia Last Admin: 01/27/22 23:20 Dose: 6 mg Documented By: JULIETTE Pharmacy Consult (Consult Rx Vancomycin Dosing) 1 each MISCELLANE DAILY PRN PRN Reason: Consult order Polyethylene Glycol (Polyethylene Glycol 3350 17 Gm Powd.Pack) 17 gm PO DAILY PRN PRN Reason: Constipation Last Admin: 01/28/22 16:25 Dose: 17 gm Documented By: HEMAL Prazosin HCl (Prazosin Hcl 1 Mg Capsule) 3 mg PO BEDTIME [facility]; Protocol Last Admin: 01/28/22 19:57 Dose: 3 mg Documented By: STAN Quetiapine Fumarate (Quetiapine Fumarate 50 Mg Tablet) 50 mg PO BID PRN PRN Reason: agitation, anxiety Last Admin: 01/29/22 12:00 Dose: 50 mg Documented By: HERB Sodium Chloride (0.9 % Sodium Chloride Flush 3 Ml [facility]ringe) [facility] Last Admin: 01/29/22 08:15 Dose: Not Given Documented By: HERB Non-Admin Reason: No Access Labs CBC & Chem 7: 01/25/22 06:02 01/29/22 06:21 Labs: Laboratory Results - last 24 hr 01/28/22 01/28/22 01/29/22 16:18 19:42 06:21 Anion Gap 16 Estim Creat Clear Calc 62.5 Estimated GFR 48 POC Glucose 177 H 358 H* Random Glucose 307 H Calcium 10.3 H 01/29/22 01/29/22 07:05 11:22 Anion Gap Estim Creat Clear Calc Estimated GFR POC Glucose 225 H 207 H Random Glucose Calcium Assessment and Plan (1) Accidental overdose: Status: Acute (2) Opioid use disorder: Status: Acute (3) Toxic metabolic encephalopathy: Status: Acute Plan 57yo F with multiple medical issues and multiple prior similar presentations who again arrives with suspected overdose (pt states accidental, not on purpose) with opiates; found down at home; unknown down time Acute toxic/metabolic encephalopathy due to suspected accidental opiate overdose. 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 seen by neurology. brain CT negative EEG CONSISTENT WITH A MARKEDLY ABNORMAL PATTERN SEVERE DIFFUSE DELTA SLOWING CONSISTENT WITH A DIFFUSE ENCEPHALOPATHIC PROCESS. NO EPILEPTIFORM DISCHARGES WERE SEEN [employer] following psych following - started on scheduled haldol - follow QTC; goal mag >2, K >4, will complete course mood on multiple medications at baseline, on hold during admission psych eval for med management DANY FENa 0.2 suggesting prerenal state resolved lisinopril on hold Mild hyperkalemia repeat BMP in am 1/2 blood cultures positive for GPC s/p empiric vanco follow final cultures growing coag negative staph. contaminant - no further treatment indicated UTI, peters-sensitive E coli s/p treatment with ceftriaxone HTN continue amlodipine; lisinopril held DM2 with hyperglycemia A1c 8.6 Sliding scale, ADA diet OUD Addiction Medicine consulted, s/p methadone taper obesity BMI 35.0 Discussed importance of weight management as this may be contributing to worsening of other comorbidities VTE ppx: LMWH attending Dr. Kebede DISPO Home tomorrow In my clinical judgment, the patient requires continued inpatient hospitalization for the following reasons: encephalopathy, LTC placement Quality Stroke Does the patient have a stroke diagnosis?: No VTE Prior VTE?: No VTE Risk Level:: Medical - moderate - high VTE Device Contraindication: Treatment Not Indicated VTE Drug Contraindication: N/A - Med Ordered
[2022-01-29 15:44] VITALS: BP 128/65; PULSE 80; RESP 20; TEMP 36.4; O2SAT 97
[2022-01-29 15:44] LABS: Glucose, Whole Blood 294 mg/dL (60-115)
--- NOTE | 2022-01-29 15:45 | MHC.CM.PN ---
pt to be dcd home nadeen will pick her up tomorrow between 10 and 12 oclock she will home with [facility]
--- NOTE | 2022-01-29 15:53 | MHC.SLORD ---
Speech Language Pathology Order Status: Pt is recommended chopped diet d/t edentulous state, thin liquids. ST intervention no longer warranted at this time as pt is tolerating these textures and denies having any difficulties. Please re-refer if there are any changes or if [facility] can be of further assistance.
[2022-01-29] MEDS: Lurasidone HCl 40 MG TABLET PO (18:22)
[2022-01-29 18:59] VITALS: BP 136/78; PULSE 88; RESP 19; TEMP 37; O2SAT 99
--- NOTE | 2022-01-29 19:32 | P.CNPS_ITS ---
History of Present Illness Date of Service: 01/30/22 Chief Complaint: Overdose Reason for Consult: medication Requesting physician: Chrissie Simmons Discussed with referring provider: Yes Sources of Information: patient interviewed and chart reviewed HPI Narrative: See previous psych consult note for history. Pt seen for re-eval to re-start home psych meds as she is alert and progressing back to baseline, meds had been held due acute toxic/metabolic encepahlopathy due to suspected accidental opiate overdose. During previous psych eval pt had been started on haldol 2 mg TID for agitation in context of delirium. Over the weekend seroquel 50 mg PRN q6h was added for residual agitation with good effect. Remains on home med ativan 0.5 mg daily prn for anxiety. I spoke with pt and reviewed her home meds of seroquel 200 mg HS, duloxetine, and latuda. She reports seroquel helps with sleep at 50 mg but sleep should be better, difficult to fall and stay asleep. No nightmares. She does not want to restart Duloxetine, it doesn?t do anything for me, denies withdrawal off it. Says of all her past meds Latuda is only the thing that?s come close to helping with depression. States SSRIs didn?t work. Sx of depression include crying episodes, doesnt want to leave her house, avolition, anhedonia. Depression and anxiety are daily, unremitting, doesn?t remember the last time she wasn?t depressed. Says her depression is more situational, stuff with my personal life, declines to go into detail but says her life circumstances are unlikely to change. Hx of panic attacks. Denies SI. No self harm. No hx of suicide attempts. Denies irritability, no agitation. Denies hx of beatriz. No psychotic sx. Has supports. No OP psych provider, as her PCP prescribes her meds but has referral for a therapist and plans to get a psych provider referral from her. Its been a few months since she last had a therapsi as she says I don?t think I get anything out of it and Its never helped, but wants this service to get a psych provider. Past Psychiatric History: Bipolar disorder. Prior inpatient episodes. Previous consults most recent 09/04/2021. No history of suicide attempts. PMFSH Medical History (Updated 01/30/22 @ 08:00 by Eli Johns NP) Asthma Bipolar disorder Chronic pain Diabetes Hypertension IBS (irritable bowel syndrome) Peripheral neuropathy Polysubstance abuse Seizure Surgical History History of appendectomy Diagnostics Vital Signs (24Hr): Vital Signs - 24 hr 01/26/22 15:08 01/26/22 19:51 01/27/22 05:49 Temperature 98.8 F 98.9 F 97.6 F Pulse Rate 76 61 62 Respiratory Rate 18 18 18 Blood Pressure 136/63 162/75 H 137/63 Pulse Oximetry 96 98 96 Oxygen Delivery Method Room Air Room Air Room Air 01/27/22 07:25 01/27/22 11:26 Temperature 98.0 F 97.2 F Pulse Rate 62 60 Respiratory Rate 20 20 Blood Pressure 117/63 124/59 L Pulse Oximetry 97 100 Oxygen Delivery Method Room Air Room Air BMI result Body Mass Index 35.0 Labs Results: 01/25/22 06:02 01/29/22 06:21 Labs: Laboratory Results - last 48 hr 01/25/22 01/25/22 01/25/22 15:59 18:13 20:26 Sodium Potassium Chloride Carbon Dioxide Anion Gap BUN Creatinine Estim Creat Clear Calc Estimated GFR POC Glucose 154 H 133 H Random Glucose Calcium Magnesium Troponin I High Sens 4.0 Vancomycin Trough 01/26/22 01/26/22 01/26/22 06:14 08:48 11:32 Sodium Potassium 5.0 Chloride Carbon Dioxide Anion Gap BUN Creatinine 0.98 Estim Creat Clear Calc 74.0 Estimated GFR 58 POC Glucose 179 H 215 H Random Glucose Calcium Magnesium 1.9 Troponin I High Sens Vancomycin Trough 01/26/22 01/26/22 01/27/22 15:11 19:52 05:44 Sodium Potassium Chloride Carbon Dioxide Anion Gap BUN Creatinine Estim Creat Clear Calc Estimated GFR POC Glucose 180 H 244 H Random Glucose Calcium Magnesium Troponin I High Sens Vancomycin Trough < 2.0 L 01/27/22 01/27/22 01/27/22 05:44 07:24 11:28 Sodium 140 Potassium 4.3 Chloride 100 Carbon Dioxide 30 H Anion Gap 14 BUN 15 Creatinine 1.03 Estim Creat Clear Calc 70.4 Estimated GFR 55 POC Glucose 191 H 246 H Random Glucose 209 H Calcium 9.6 Magnesium 1.7 Troponin I High Sens Vancomycin Trough Imaging Radiology Impressions: ITS Impressions Head CT 01/15/22 06:35 IMPRESSION: Suboptimal assessment in some regions due to motion artifact. No acute intracranial pathology identified. Chest X-Ray 01/15/22 10:40 IMPRESSION: Unremarkable examination. Chest X-Ray 01/16/22 11:59 IMPRESSION: No acute cardiopulmonary process. Abdomen/Pelvis CT 01/21/22 18:08 IMPRESSION: 1. No CT evidence of acute intra-abdominal process to explain patient's pain symptoms. 2. Postsurgical changes in the cecum probably prior appendectomy. No CT evidence of dehiscence. 3. Other noncritical findings described above are stable. Chest X-Ray 01/23/22 04:15 IMPRESSION: No acute cardiopulmonary findings Mental Status Exam Mental Status Exam Narrative: Appearance: MO, woman lying in bed, somnolent but responsive, in NAD Behavior: engagement limited due to some degree of somnolence Psychomotor: somnolent Speech: clear, single words, spontaneous- prior to falling asleep TP: more linear and coherent TC:feeling better AH/VH: none Delusions: none Memory/cog: at time of interview- alert, oriented x 3. Medications Medications Current Medications Acetaminophen (Acetaminophen 325 Mg Tablet) 650 mg PO Q6H PRN PRN Reason: Pain, Mild (Pain Scale 1-3) Last Admin: 01/26/22 17:30 Dose: 650 mg Amlodipine Besylate (Amlodipine Besylate 10 Mg Tablet) 10 mg PO DAILY [facility]; Protocol Last Admin: 01/27/22 08:28 Dose: 10 mg Atorvastatin Calcium (Atorvastatin Calcium 20 Mg Tablet) 20 mg PO DAILY [facility] Last Admin: 01/27/22 08:28 Dose: 20 mg Enoxaparin Sodium (Enoxaparin Sodium 40 Mg/0.4 Ml Syringe) 40 mg SUBCUT Q24H [facility] Last Admin: 01/27/22 12:17 Dose: 40 mg Haloperidol (Haloperidol 1 Mg Tablet) 2 mg PO TID [facility] Last Admin: 01/27/22 08:28 Dose: 2 mg Insulin Glargine (Insulin Glargine,Hum.Rec.Anlog 100 Unit/Ml 10 Ml Vial) 10 unit SUBCUT DAILY [facility] Last Admin: 01/27/22 08:29 Dose: 10 unit Insulin Human Lispro (Insulin Lispro 100 Unit/Ml 3 Ml Vial) 0 unit SUBCUT QIDACHS [facility]; Protocol Last Admin: 01/27/22 12:18 Dose: 6 unit Lisinopril (Lisinopril 10 Mg Tablet) 30 mg PO DAILY [facility]; Protocol Last Admin: 01/23/22 08:00 Dose: 30 mg Lorazepam (Lorazepam 0.5 Mg Tablet) 0.5 mg PO DAILY PRN PRN Reason: Anxiety Last Admin: 01/27/22 12:17 Dose: 0.5 mg Melatonin (Melatonin 3 Mg Tablet) 6 mg PO BEDTIME PRN PRN Reason: insmonia Last Admin: 01/26/22 23:14 Dose: 6 mg Pharmacy Consult (Consult Rx Vancomycin Dosing) 1 each MISCELLANE DAILY PRN PRN Reason: Consult order Prazosin HCl (Prazosin Hcl 1 Mg Capsule) 3 mg PO BEDTIME [facility]; Protocol Last Admin: 01/26/22 20:03 Dose: 3 mg Sodium Chloride (0.9 % Sodium Chloride Flush 3 Ml Syringe) 3 ml IVFLUSH QSHIFT [facility] Last Admin: 01/27/22 08:30 Dose: 3 ml Allergies Allergies Allergy/AdvReac Type Severity Reaction Status Date / Time morphine [MORPHINE] Allergy Unknown RASH, vomit Verified 01/15/22 00:48 prednisone Allergy Unknown hives Verified 01/15/22 00:48 Sulfa (Sulfonamide Allergy Unknown UNKNOWN, Verified 01/15/22 00:48 Antibiotics) hives [SULFA (SULFONAMIDE ANTIBIOTICS)] Assessment & Plan Assessment & Plan (1) Bipolar II disorder: Status: Acute Code(s): F31.81 - Bipolar II disorder Plan Ms. Cruz is a 57 year-old woman with hx of Bipolar disorder, opioid use disorder, admitted for hypoxic-ischemic encephalopathy 10 days ago, mostly unresponsive but since yesterday talking more, and more psychomotor agitation. Pt presents with fluctuating orientation, agitated, grabbing things that are not there, trying to get out of bed despite redirection- all s/s of hyperactive delirium. 01/26- Pt continues to present with fluctuating levels of confusion but overall improvement is noticed. No requirement of IM for combativeness or agitation in past 24 hrs. continue scheduled haldol 2mg po TID, monitor Qtc less than 500ms, maintain K>4, Mg>2. hold for excessive sedation. recommend not to discharge until complete resolution of delirum- hopefully few more days to see more consistent improvement and orientation. 01/29: restart seroquel at 100 mg hs for insomnia, latuda 40 mg daily for depression, mood stability. Continue haldol 2 mg TID due to reproted benefit for mood swings, may consider D/Cing in OP setting. Continue seroquel 50 mg BID PRN for acute anxiety. I have shared this with Mary Bradford Thank you for this consultation. If you have any questions or concerns, please do not hesitate to contact psychiatry service. I spent minutes with the patient and/or on the patient floor today, greater than?50% of which was spent counseling/coordinating care.
[2022-01-29 20:21] LABS: Glucose, Whole Blood 293 mg/dL (60-115)
[2022-01-29] MEDS: Prazosin HCL 1 MG CAPSULE 3 MG PO (20:52)
[2022-01-29] MEDS: QUEtiapine Fumarate 100 MG TABLET PO (20:52)
[2022-01-29] MEDS: Docusate Sodium 100 MG CAPSULE PO (20:52)
[2022-01-29] MEDS: 0.9 % Sodium Chloride Flush 3 ML SYRINGE IVFLUSH (20:57)
[2022-01-30] VITALS: BP 147/67; PULSE 81; RESP 20; TEMP 36.4; O2SAT 95
[2022-01-30] MEDS: LORazepam 0.5 MG TABLET PO (00:04)
[2022-01-30] MEDS: Melatonin 3 MG TABLET 6 MG PO (02:56)
[2022-01-30] MEDS: Acetaminophen 325 MG TABLET 650 MG PO ×2 (02:56→08:12)
[2022-01-30 03:05] VITALS: BP 137/61; PULSE 89; RESP 20; TEMP 36.6; O2SAT 97
[2022-01-30 07:14] VITALS: BP 129/58; PULSE 81; RESP 18; TEMP 36.4; O2SAT 97
[2022-01-30 07:25] LABS: Glucose, Whole Blood 449 mg/dL (60-115)
--- NOTE | 2022-01-30 08:05 | PM.DS ---
DS: Providers Provider Date of Service: 01/30/22 Date of admission: 01/15/22 10:50 Primary care physician: Bri Milligan CNP Consults: 01/15/22 05:34 Consult to Care Team Stat Comment: Reason for consultation: SUDE 01/16/22 07:49 Addiction Medicine Routine Consulting Provider: Addiction Covering Reason for consultation: opiod overdose Has provider been notified: No 01/16/22 10:02 Consult to Neurology Routine Consulting Provider: [facility] Reason for consultation: overdose, now slow to respond - ? anoxic injury? 01/25/22 11:14 Consult to Psychiatry Routine Consulting Provider: Psych Covering Reason for consultation: on many meds at home, were held, now with behavior issues Has provider been notified: No Attending physician on discharge: Paul Kebede Discharging clinician: Mary Fried DS: Diagnosis Discharge Diagnosis (1) Bipolar II disorder: Status: Acute DS: Summary Hospital Course Hospital Course: History and physical as per admitting provider The patient is a 57 yo F with a PMH as outlined below who was brought into the ED via EMS for suspected overdose. The patient is currently very slow to respond and unable to give a meaningful history. Hence, history is obtained from the ED chart.HPI from ED notes: Patient comes to the emergency room via EMS.? According to EMS, the patient's roommate found her unresponsive, with agonal breathing, unknown down time.? EMS reports that the roommate said that the patient uses fentanyl as her drug of choice.? EMS gave her 5 mg of Narcan via an IO which was placed via EMS of the [place].? Patient initially woke up but return to sleep immediately and was very difficult to arouse, patient need to be ventilated via bag-valve mask.? On arrival to the emergency room, patient still unresponsive In the ED, the patient required narcan drip and now has become more responsive, although still confused. She is on 3L of oxygen. SHe has DANY and remains enceopahlopathic and hence she will be admitted for further care. Of note -- the patient has had similar presentation to the hospital several times in 2021 . Acute toxic/metabolic encephalopathy due to suspected accidental opiate overdose.? 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 seen by neurology. brain CT negative EEG CONSISTENT WITH A MARKEDLY ABNORMAL PATTERN SEVERE DIFFUSE DELTA SLOWING CONSISTENT WITH A DIFFUSE ENCEPHALOPATHIC PROCESS.? NO EPILEPTIFORM DISCHARGES WERE SEEN psych following - started on scheduled haldol - follow QTC; goal mag >2, K >4, will complete course psychiatric medications adjusted Take held off for 15 days and follow-up with psychiatrist for further medication adjustment DANY FENa 0.2 suggesting prerenal state resolved lisinopril held, may continue Mild hyperkalemia repeat BMP in am 1/2 blood cultures positive for GPC s/p empiric vanco follow final cultures growing coag negative staph. contaminant - no further treatment indicated UTI, peters-sensitive E coli s/p treatment with ceftriaxone? HTN continue amlodipine; lisinopril held DM2 with hyperglycemia A1c 8.6 continue home medications OUD Addiction Medicine consulted, s/p methadone taper obesity BMI 35.0 Discussed importance of weight management as this may be contributing to worsening of other comorbidities Time Spent with Patient Time attestation: Total time spent providing and/or coordinating discharge services: Discharge coordination time: Greater than 30 minutes Quality: Safe Use of Opioids Does Pt have an Active Cancer Diagnosis on the Problem List?: No Quality: Stroke Does the patient have a stroke diagnosis?: No Physical Exam Vital Signs: Vital Signs: Last Vital Signs Temp 97.6 F 01/30/22 07:14 Pulse 81 01/30/22 07:14 Resp 18 01/30/22 07:14 BP 129/58 L 01/30/22 07:14 Pulse Ox 97 01/30/22 07:14 O2 Del Method 01/30/22 07:14 O2 Flow Rate 3 01/15/22 12:36 BMI result Body Mass Index 35.0 Appearing in no acute distress head is normocephalic atraumatic eyes pupils are PERRLA sclera is anicteric mouth throat mucous membranes are intact and moist neck is supple no lymphadenopathy, no JVD noted lung sounds are clear to auscultation heart regular rate rhythm, clear S1, S2 positive bowel sounds, abdomen is soft, nontender neuro patient is alert x3, no focal deficits DS: Data Data Completed and Pending Completed studies during hospitalization [Text1]: Procedures Detoxification Services for Substance Abuse Treatment (07/15/21) Introduction of Vasopressor into Peripheral Vein, Percutaneous Approach (07/15/21) Labs on day of discharge: Laboratory Results - last 24 hr 01/29/22 01/29/22 01/29/22 11:22 15:23 20:15 POC Glucose 207 H 294 H 293 H 01/30/22 07:11 POC Glucose 449 H* Preliminary micro results at discharge 01/25/22 06:02 Blood Culture - Preliminary Blood - Venous No growth after 48 hours. 01/25/22 06:02 Blood Culture - Preliminary Blood - Venous No growth after 48 hours. Discharge Plan Discharge Anticipated Discharge Date/Time: 01/30/22 07:41 Patient Disposition: Home Health Service Discharge Diagnosis: Accidental overdose DANY UTI Referrals: [facility] [Other] - 1 Week Bri Milligan CNP [Primary Care Provider] - 1 Week Discharge Medications: New haloperidol 1 mg Tablet 2 mg PO TID Qty: 90 0RF Rx Instructions: Take for 15 days and follow up with your psychiatrist to further adjust medications Latuda 40 mg Tablet 40 mg PO DAILY@1800 Qty: 30 0RF prazosin 1 mg Capsule 3 mg PO BEDTIME Qty: 90 0RF Protocol: Hold for SBP< HOLD for SBP < : 90 quetiapine 100 mg Tablet 100 mg PO BEDTIME Qty: 30 0RF quetiapine 50 mg Tablet 50 mg PO BID PRN (Reason: agitation, anxiety) Qty: 120 0RF Continued acetaminophen [Tylenol Extra Strength] 500 mg tablet 500 mg PO Q6H PRN (Reason: fever or pain) Qty: 14 0RF lorazepam 0.5 mg Tablet 0.5 mg PO DAILY PRN (Reason: Anxiety) metformin 1,000 mg tablet 1,000 mg PO BID multivitamin Tablet 1 tab PO DAILY pregabalin [Lyrica] 75 mg Capsule 75 mg PO BID Qty: 60 0RF atorvastatin 20 mg tablet 20 mg PO DAILY clonazepam 0.5 mg tablet 0.5 mg PO DAILY PRN (Reason: Anxiety) lisinopril 30 mg tablet 30 mg PO DAILY duloxetine 30 mg capsule,delayed release(DR/EC) 30 mg PO BID Januvia 100 mg tablet 100 tab PO DAILY Discontinued prazosin 1 mg capsule 3 mg PO BEDTIME quetiapine [Seroquel] 200 mg Tablet 200 mg PO BEDTIME Latuda 120 mg tablet 120 mg PO DAILY Discharge Orders: Discharge Order (Routine); Ordered 01/30/22 Ordered By: Mary Fried Diet: Advance to usual diet Activity on Discharge: As tolerated Stand Alone Forms: Patient Portal Discharge page Care Plan Goals: Take medications as prescribed to avoid medication overdoses Health Concerns: Accidental overdose DANY UTI Plan of Treatment: Take all medications as prescribed Follow-up with primary care provider as needed Assessment: See discharge summary Discharge Date/Time: 01/30/22 11:40
[2022-01-30] MEDS: Insulin Lispro 100 UNIT/ML 3 ML VIAL SUBCUT (08:11)
[2022-01-30] MEDS: Insulin Glargine,Hum.rec.anlog 100 UNIT/ML 10 ML VIAL 10 UNIT SUBCUT (08:11)
[2022-01-30] MEDS: Magnesium Oxide 400 MG TABLET PO (08:11)
[2022-01-30] MEDS: 0.9 % Sodium Chloride Flush 3 ML SYRINGE IVFLUSH (08:11)
[2022-01-30] MEDS: Atorvastatin Calcium 20 MG TABLET PO (08:11)
[2022-01-30] MEDS: amLODIPine Besylate 10 MG TABLET PO (08:11)
[2022-01-30] MEDS: HaloperidoL 1 MG TABLET 2 MG PO (08:12)
[2022-01-30] MEDS: Ibuprofen 400 MG TABLET PO (10:23)
[2022-01-30 10:56] LABS: Glucose, Whole Blood 138 mg/dL (60-115)
[2022-01-30 10:58] VITALS: BP 136/95; PULSE 79; RESP 18; TEMP 36.3; O2SAT 98
== END 2022-01-30 11:40 | disposition home health service (06) | DRG 917 ==
LOC: HO.ED 09:51 → HO.EDOVER 10:55 → HO.IMC 17:05
PROVIDERS: Family Medicine; Hospitalist; Internal Medicine; Physician Assistant; Physician Assistant Medical; Admitting Provider Family Medicine; Emergency Provider Emergency Medicine; PCP Nurse Practitioner Family; Visit Provider Nurse Practitioner Acute Care
DX: T40.411A Poisoning by fentanyl or fentanyl analogs, accidental (unintentional), initial encounter (principal); G92.8 Other toxic encephalopathy; N17.9 Acute kidney failure, unspecified; N30.00 Acute cystitis without hematuria; G93.1 Anoxic brain damage, not elsewhere classified; F31.81 Bipolar II disorder; Y92.009 Unspecified place in unspecified non-institutional (private) residence as the place of occurrence of the external cause; E11.42 Type 2 diabetes mellitus with diabetic polyneuropathy; E87.5 Hyperkalemia; I10 Essential (primary) hypertension; B96.20 Unspecified Escherichia coli [E. coli] as the cause of diseases classified elsewhere; F11.10 Opioid abuse, uncomplicated; E66.9 Obesity, unspecified; Z68.31 Body mass index [BMI] 31.0-31.9, adult; E11.65 Type 2 diabetes mellitus with hyperglycemia; Z20.822 Contact with and (suspected) exposure to COVID-19; Z88.2 Allergy status to sulfonamides; Z88.5 Allergy status to narcotic agent; Z88.8 Allergy status to other drugs, medicaments and biological substances; Z79.84 Long term (current) use of oral hypoglycemic drugs; Z79.899 Other long term (current) drug therapy
CPT/HCPCS: 0241U; 36415; 70450; 71045; 74177; 80048; 80053; 80202; 80307; 81001; 82565; 82803; 82947; 83036; 83605; 83735; 83880; 84132; 84145; 84300; 84484; 85025; 85027; 85610; 85730; 86140; 86704; 86706; 86780; 86803; 87040; 87086; 87088; 87147; 87186; 87205; 87340; 87389; 87633; 92526; 92610; 93005; 95816; 97161; 97162; 99285; J0696; J1650; J2405; J3370; Q9967

== ENCOUNTER 2022-02-12 19:16 | Emergency (ER) | payer OTHER, SELFPAY ==
[2022-02-12 19:28] VITALS: BP 167/70; BP 175/94; PULSE 86; PULSE 88; RESP 20; TEMP 36.9; O2SAT 96; O2SAT 97; BMI 33.4
--- NOTE | 2022-02-12 19:54 | ED_ITS ---
HPI - General Adult General Chief complaint: General Medical Stated complaint: Back Pain Time Seen by Provider: 02/12/22 19:43 Source: patient and EMS Mode of arrival: EMS Limitations: no limitations History of Present Illness HPI narrative: This is a 57 years old the female with history of diabetes, hypertension, bipolar disorder, seizure disorder, and opioid abuse and opid overdose in the past presented to the emergency room with a chief complaint of lower back pain. She states that she has history of chronic back pain and the pain is getting worse. She denies any fever, denies any radiation of the pain in the lower extremity, denies any numbness or weakness of the of the lower extremity, she has no urine or fecal incontinence and no fever. Onset (ago): month(s) Location: back Radiation: non-radiation Severity: moderate Quality: burning Pain Consistency: constant Relieving factors: none Exacerbating factors: none Treatments prior to arrival: none Related Data Home Medications Medication Instructions Recorded Confirmed lorazepam 0.5 mg tablet 0.5 mg PO DAILY PRN Anxiety 07/15/21 01/15/22 metformin 1,000 mg tablet 1,000 mg PO BID 09/03/21 01/15/22 multivitamin 1 tab PO DAILY 09/03/21 01/15/22 atorvastatin 20 mg tablet 20 mg PO DAILY 01/15/22 01/15/22 clonazepam 0.5 mg tablet 0.5 mg PO DAILY PRN Anxiety 01/15/22 01/15/22 duloxetine 30 mg capsule,delayed 30 mg PO BID 01/15/22 01/15/22 release lisinopril 30 mg tablet 30 mg PO DAILY 01/15/22 01/15/22 sitagliptin phosphate 100 mg 100 tab PO DAILY 01/15/22 01/15/22 tablet (Januvia) Previous Rx's Medication Instructions Recorded acetaminophen 500 mg tablet 500 mg PO Q6H PRN fever or pain 08/21/21 (Tylenol Extra Strength) #14 tabs pregabalin 75 mg capsule (Lyrica) 75 mg PO BID #60 caps 09/11/21 haloperidol 1 mg tablet 2 mg PO TID #90 tabs 01/30/22 lurasidone 40 mg tablet (Latuda) 40 mg PO DAILY@1800 #30 tabs 01/30/22 prazosin 1 mg capsule 3 mg PO BEDTIME #90 caps 01/30/22 quetiapine 100 mg tablet 100 mg PO BEDTIME #30 tabs 01/30/22 quetiapine 50 mg tablet 50 mg PO BID PRN agitation, 01/30/22 anxiety #120 tabs Allergies Allergy/AdvReac Type Severity Reaction Status Date / Time morphine [MORPHINE] Allergy Unknown RASH, vomit Verified 01/15/22 00:48 prednisone Allergy Unknown hives Verified 01/15/22 00:48 Sulfa (Sulfonamide Allergy Unknown UNKNOWN, Verified 01/15/22 00:48 Antibiotics) hives [SULFA (SULFONAMIDE ANTIBIOTICS)] Review of Systems Constitutional: Constitutional: Reports no additional constitutional complain ts ENT: Reports system reviewed and no additional complaints, except as documented Cardiovascular: Cardiovascular: Reports no additional cardiovascular complaints Respiratory: Respiratory: Reports no additional respiratory complaints Gastrointestinal: Gastrointestinal: Reports no additional gastrointestinal complaints [facility] Past Medical History Medical History Asthma Bipolar disorder Chronic pain Diabetes Hypertension IBS (irritable bowel syndrome) Opioid use disorder Peripheral neuropathy Polysubstance abuse Seizure Surgical History History of appendectomy Social History Social History Household Members: Other Household Members Other:: roommate Housing: Assisted Living Facility Do you presently have visiting nurse or other home services: No Unable to assess alcohol history related to: Unable to respond Alcohol intake: never Patient Tobacco Use Status: Never used Tobacco Smoked in Last 30 Days: Yes Use of substances other than those prescribed or required for medical reasons: No Substance Use Type: Painkillers Advance Directives: Yes Advance Directives on File: Yes Advance Directives Date on File: 09/03/21 Patient : No service: No Current occupational status: disabled Physical Exam ED Vital Signs: Vital Signs - 24 hr 02/12/22 19:28 Temperature 98.5 F Pulse Rate 88 Respiratory Rate 20 Blood Pressure 167/70 H Pulse Oximetry 97 Oxygen Delivery Method Room Air BMI result Body Mass Index 33.4 Const General: cooperative, comfortable, no acute distress and well developed Nutritional Appearance: average body habitus Orientation/consciousness: patient oriented x3 Limitations: no limitations HENMT Head: Yes normal to inspection General nose exam: Normal external nose present Face and sinus: Yes normal facial exam Mouth: Normal oral and palatal mucosa present Neck Neck: Yes normal visual inspection and Yes full ROM Chest Chest palpation & inspection: normal inspection of the chest Resp Effort & Inspection: normal respiratory effort and able to speak in complete sentences Auscultation: clear to auscultation bilaterally Cardio Jugular venous distension: no JVD Rate: regular rate Rhythm: regular rhythm GI Inspection: Yes normal to inspection Palpation (GI): Soft to palpation, not firm, nontender and no guarding Back/Spine/Pelvis Other: Tenderness in the LS spine Skin General skin exam: no rashes or lesions noted and elasticity normal Lesions: no lesions Rashes: no rashes Neuro General: patient oriented x3 Cranial nerves: Yes CN's II-XII intact bilaterally Cognition (Neuro): normal cognition Course Reevaluation(s) Reevaluation #1: Doing better she is ambulating in the or weight with without any problems I think she can be discharged home no red flag ( no numbness or weakness in the lower extremity) Time: 22:18 Medications Administered Discontinued Medications Generic Name Dose Route Start Last Admin Trade Name Sheila PRN Reason Stop Dose Admin Diazepam 5 mg 02/12/22 19:47 02/12/22 19:57 Diazepam 2 Mg Tablet PO 02/12/22 19:48 5 mg ONCE ONE Administration Insulin Human Lispro 10 unit 02/12/22 19:51 02/12/22 19:58 Insulin Lispro 100 Unit/Ml 3 Ml Vial SUBCUT 02/12/22 19:52 10 unit ONCE ONE Administration Ketorolac Tromethamine 60 mg 02/12/22 20:43 02/12/22 20:52 Ketorolac Tromethamine 60 Mg/2 Ml Vial IM 02/12/22 20:44 60 mg ONCE ONE Administration Medical Decision Making Medical Decision Making [facility] Narrative: I do not think this patient has a spinal abscess, she has no fever she has a normal white count, she is neurologically intact she is ambulating in the hallway. I think she can be discharged home follow-up with PCP, an MRI can be done as outpatient I do think we need to do it today because no neuro deficit no red flag, such as your incontinent stool incontinent leg weakness. Tests considered but not performed: Tests Considered But Not Performed The following testing was considered but ultimately not selected after discussion with patient/family. I consider an MRI but I do not think is indicated emergently today may be done as outpatient Prescription medication was considered but ultimately not given after discussion with patient/family. (e.g., pain medication, antiviral, antibiotic): Prescriptions considered but not given Additional Comments: I consider opioid analgesia but the patient does history of opioid abuse with overdose therefore I think she can take nonsteroidal anti-inflammatory medication Chronic conditions affecting care (e.g., diabetes, HTN): Chronic conditions affecting care (e.g., diabetes, HTN) Additional Comments: Patient has comorbidity diabetes Discharge Plan Discharge Clinical Impression: Back pain Patient Disposition: Home, Self-Care Instructions: Acute Low Back Pain (ED) Additional Instructions: Please follow-up with your primary care physician call in a.m. her return if you worse Prescriptions: No Action acetaminophen [Tylenol Extra Strength] 500 mg tablet 500 mg PO Q6H PRN (Reason: fever or pain) Qty: 14 0RF lorazepam 0.5 mg Tablet 0.5 mg PO DAILY PRN (Reason: Anxiety) metformin 1,000 mg tablet 1,000 mg PO BID multivitamin Tablet 1 tab PO DAILY pregabalin [Lyrica] 75 mg Capsule 75 mg PO BID Qty: 60 0RF atorvastatin 20 mg tablet 20 mg PO DAILY clonazepam 0.5 mg tablet 0.5 mg PO DAILY PRN (Reason: Anxiety) lisinopril 30 mg tablet 30 mg PO DAILY duloxetine 30 mg capsule,delayed release(DR/EC) 30 mg PO BID Januvia 100 mg tablet 100 tab PO DAILY haloperidol 1 mg Tablet 2 mg PO TID Qty: 90 0RF Rx Instructions: Take for 15 days and follow up with your psychiatrist to further adjust medications Latuda 40 mg Tablet 40 mg PO DAILY@1800 Qty: 30 0RF prazosin 1 mg Capsule 3 mg PO BEDTIME Qty: 90 0RF Protocol: Hold for SBP< HOLD for SBP < : 90 quetiapine 100 mg Tablet 100 mg PO BEDTIME Qty: 30 0RF quetiapine 50 mg Tablet 50 mg PO BID PRN (Reason: agitation, anxiety) Qty: 120 0RF Referrals: Bri Milligan, HAYDEN [Primary Care Provider] - 1 day
[2022-02-12] MEDS: diazePAM 2 MG TABLET 5 MG PO (19:57)
[2022-02-12] MEDS: Insulin Lispro 100 UNIT/ML 3 ML VIAL 10 UNIT SUBCUT (19:58)
[2022-02-12 20:03] LABS: Glucose, Whole Blood 358 mg/dL (60-115)
[2022-02-12 20:04] LABS: MANUAL DIFF FLAG NO
[2022-02-12 20:06] LABS: Basophils Absolute Auto 0.1 X10*3/uL (0.0-0.2); Basophils Percent Auto 0.5 % (0-2); Eosinophils Absolute Auto 0.1 X10*3/uL (0.0-0.4); Eosinophils Percent Auto 0.7 % (0-4); Hematocrit 32.5 % (37.0-47.0); Hemoglobin 10.9 g/dl (12.0-16.0); Imm Gran Abs Auto 0.07 X10*3/uL (0.00-0.03); Imm Gran Pct Auto 0.7 % (0.0-0.4); Lymphocytes Absolute Auto 1.4 X10*3/uL (1.2-4.9); Lymphocytes Percent Auto 13.4 % (20-40); Mean Corpuscular HGB Conc 33.5 g/dl (31.0-35.0); Mean Corpuscular Hemoglobin 27.7 pg (27.0-33.0); Mean Corpuscular Volume 82.7 fL (80.0-98.0); Mean Platelet Volume 11.2 fL (9.4-12.3); Monocytes Absolute Auto 0.3 X10*3/uL (0.1-1.2); Monocytes Percent Auto 2.7 % (2-11); Neutrophils Absolute Auto 8.7 x10*3/uL (2.0-8.3); Platelet Count 221 X10*3/uL (160-400); Red Blood Count 3.93 X10*6/uL (4.20-5.50); Red Cell Distribution Width 16.1 % (11.0-16.0); White Blood Count 10.7 X10*3/uL (4.8-10.8)
[2022-02-12 20:32] LABS: Glucose, Whole Blood 366 mg/dL (60-115)
[2022-02-12 20:50] LABS: Erythrocyte Sedimentation Rate 45 MM/HR (0-20)
[2022-02-12 20:51] LABS: Alanine Aminotransferase 19 U/L (0-31); Albumin Level 3.9 g/dL (3.5-5.0); Alkaline Phosphatase 112 U/L (39-117); Anion Gap 16 (12-20); Aspartate Amino Transferase 12 U/L (5-31); Bilirubin Total 0.3 mg/dL (0.0-1.0); Blood Urea Nitrogen 20 mg/dL (9-16); C Reactive Protein 2.07 mg/dL (< or = 0.50); Calcium 9.5 mg/dL (8.4-10.2); Carbon Dioxide 27 mmol/L (22-29); Chloride 102 mmol/L (96-108); Creatinine Clr Calc Pharmacy 59.9; Estimated Glomerular Filt Rate 47; Glucose Random 400 mg/dL (60-115); Potassium 4.9 mmol/L (3.3-5.1); Sodium 140 mmol/L (135-145); Total Protein 6.6 g/dL (6.5-8.0)
[2022-02-12] MEDS: Ketorolac Tromethamine 60 MG/2 ML VIAL IM (20:52)
[2022-02-12 21:22] LABS: Glucose, Whole Blood 348 mg/dL (60-115)
[2022-02-12 22:15] LABS: Glucose, Whole Blood 316 mg/dL (60-115)
== END 2022-02-12 22:46 | disposition home or self-care (01) ==
PROVIDERS: Emergency Provider Emergency Medicine; PCP Nurse Practitioner Family
DX: M54.50 Low back pain, unspecified (principal); E11.9 Type 2 diabetes mellitus without complications; I10 Essential (primary) hypertension; F11.10 Opioid abuse, uncomplicated; Z79.899 Other long term (current) drug therapy
CPT/HCPCS: 36415; 80053; 82947; 85025; 85652; 86140; 96372; 99284; J1885

== ENCOUNTER 2022-03-07 19:30 | Inpatient (IN) | payer OTHER, SELFPAY ==
[2022-03-07] VITALS (7 sets, daily range): BP systolic 59–98; BP diastolic 33–54; PULSE 67–90; RESP 20–25; TEMP 36.7–37; O2SAT 93–98; BMI 31.8
--- NOTE | ~2022-03-07 | XR_ITS ---
EXAMINATION: XR CHEST CLINICAL INFORMATION: Pneumonia. Shortness of breath. COMPARISON: 01/23/2022 TECHNIQUE: Frontal view of the chest was obtained. FINDINGS: Streaky left perihilar opacities and left lung hazy opacity. Right lung clear. No pleural effusion or pneumothorax. Normal cardiomediastinal silhouette. XR/XR chest 1V IMPRESSION: Left perihilar opacities could be compatible with pneumonia
--- NOTE | ~2022-03-07 | CT_ITS ---
EXAMINATION: CT HEAD WITHOUT CONTRAST CLINICAL INFORMATION: Altered mental status COMPARISON: CT head 01/15/2022 TECHNIQUE: Contiguous axial imaging was performed from the skull base to vertex without intravenous administration of contrast. Coronal and sagittal reformatted images are performed at the CT scanner. [This CT examination was performed using dose optimization techniques as appropriate, variously including the following: *Automated exposure control *Adjustment of mA and/or kV according to patient size (this includes techniques or standardized protocols for targeted exams where dose is matched to indication/reason for exam; i.e. extremities or head) *Use of iterative reconstruction technique] DLP: 865 mGy-cm. FINDINGS: There is no evidence of acute intracranial hemorrhage or territorial infarction. No abnormal mass-effect or midline shift is seen. [place] to white matter differentiation is well preserved. No extra-axial fluid collections are identified. The ventricles are normal in size. There is no abnormal attenuation within the brain parenchyma. There is no osseous abnormality. The mastoid air cells and visualized portions of the paranasal sinuses are well-aerated. CT/CT head/brain wo IV con IMPRESSION: No acute intracranial pathology.
[2022-03-07 20:23] LABS: Glucose, Whole Blood 285 mg/dL (60-115)
--- NOTE | 2022-03-07 20:28 | PC.NURSE ---
Pt brought in via EMS for overdose, lethargic and drowsy responding to verbal and painful stimuli. Able to respond to questions and answer appropriately. Hypotensive, verbal order for 3000ml normal saline to be infused per provider.
--- NOTE | 2022-03-07 20:38 | PC.NURSE ---
First bag of normal saline infused with pressure bags. Second liter hung with pressure bag as well.
--- NOTE | 2022-03-07 22:08 | ED_ITS ---
HPI - Overdose General Chief Complaint: Overdose Stated Complaint: OD Time Seen by Provider: 03/07/22 19:33 Source: EMS Mode of arrival: EMS Limitations: altered mental status History of Present Illness HPI Narrative: Patient comes to the emergency room after possible overdose. Patient is well- known to our service, patient usually overdoses with fentanyl. Today, patient is barely awake, however she says that she did not use fentanyl, states she used clonazepam and lorazepam and clonidine. EMS reports that the family reported that this morning patient was doing well, patient had a sudden change in mental status, the patient was very somnolent and lethargic, they helped her up to the bathroom, patient was unable to get up. EMS reports that they found the patient sitting in the bathroom, very somnolent. Patient told EMS that she took clonazepam and lorazepam. Patient denies any falls, any pain. Patient denies suicidal or homicidal ideation Related Data Home Medications Medication Instructions Recorded Confirmed lorazepam 0.5 mg tablet 0.5 mg PO DAILY PRN Anxiety 07/15/21 01/15/22 metformin 1,000 mg tablet 1,000 mg PO BID 09/03/21 01/15/22 multivitamin 1 tab PO DAILY 09/03/21 01/15/22 atorvastatin 20 mg tablet 20 mg PO DAILY 01/15/22 01/15/22 clonazepam 0.5 mg tablet 0.5 mg PO DAILY PRN Anxiety 01/15/22 01/15/22 duloxetine 30 mg capsule,delayed 30 mg PO BID 01/15/22 01/15/22 release lisinopril 30 mg tablet 30 mg PO DAILY 01/15/22 01/15/22 sitagliptin phosphate 100 mg 100 tab PO DAILY 01/15/22 01/15/22 tablet (Januvia) Previous Rx's Medication Instructions Recorded acetaminophen 500 mg tablet 500 mg PO Q6H PRN fever or pain 08/21/21 (Tylenol Extra Strength) #14 tabs pregabalin 75 mg capsule (Lyrica) 75 mg PO BID #60 caps 09/11/21 haloperidol 1 mg tablet 2 mg PO TID #90 tabs 01/30/22 lurasidone 40 mg tablet (Latuda) 40 mg PO DAILY@1800 #30 tabs 01/30/22 prazosin 1 mg capsule 3 mg PO BEDTIME #90 caps 01/30/22 quetiapine 100 mg tablet 100 mg PO BEDTIME #30 tabs 01/30/22 quetiapine 50 mg tablet 50 mg PO BID PRN agitation, 01/30/22 anxiety #120 tabs Allergies Allergy/AdvReac Type Severity Reaction Status Date / Time morphine [MORPHINE] Allergy Unknown RASH, vomit Verified 01/15/22 00:48 prednisone Allergy Unknown hives Verified 01/15/22 00:48 Sulfa (Sulfonamide Allergy Unknown UNKNOWN, Verified 01/15/22 00:48 Antibiotics) hives [SULFA (SULFONAMIDE ANTIBIOTICS)] Review of Systems Review of Systems: Constitutional : No Weight loss, No Fever, No Chills, No Night Sweats, No Fatigue, No Malaise ENT/Mouth : No Hearing loss, No Ear Pain, No Nasal Congestion, No Sinus Pain, No Hoarseness, No sore throat, No Rhinorrhea, No Swallowing Difficulty Eyes: No Eye Pain, No Swelling, No Redness, No Foreign Body, No Discharge, No Vision Changes Cardiovascular : No Chest Pain, No SOB, No Dyspnea on Exertion, No Orthopnea, No Edema, No Palpitations Respiratory : No Cough, No Sputum, No Wheezing, No Smoke Exposure, No Dyspnea Gastrointestinal : No Nausea, No Vomiting, No Diarrhea, No Constipation, No abdominal Pain, No Hematochezia, No Melena Genitourinary : no irregular bleeding, No Dysuria, No Urinary Frequency, No Hematuria, No Urinary Incontinence, No Urgency, No Flank Pain, No Urinary Flow Changes, No Hesitancy Musculoskeletal : No joint pain, No Myalgias, No Joint Swelling Skin : No Skin Lesions, No rash Neuro : No Weakness, No Numbness, No Paresthesias, No Loss of Consciousness, No Dizziness, No Headache Psych : No Anxiety/Panic, No Depression, No SI/HI/AH/VH, No Social Issues, Heme/Lymph: No Bruising, No Bleeding,No Lymphadenopathy Endocrine : No Polyuria, No Polydipsia, No Temperature Intolerance [facility] Past Medical History Medical History Asthma Bipolar disorder Chronic pain Diabetes Hypertension IBS (irritable bowel syndrome) Opioid use disorder Peripheral neuropathy Polysubstance abuse Seizure Surgical History History of appendectomy Social History Social History Household Members: Other Household Members Other:: roommate Housing: Assisted Living Facility Do you presently have visiting nurse or other home services: No Unable to assess alcohol history related to: Unable to respond Alcohol intake: never Patient Tobacco Use Status: Never used Tobacco Substance Use Type: Painkillers Advance Directives: Yes Advance Directives on File: Yes Advance Directives Date on File: 09/03/21 service: No Current occupational status: disabled Physical Exam Vital Signs: Vital Signs: Last Vital Signs Temp 96.7 F L 03/08/22 00:20 Pulse 67 03/08/22 00:20 Resp 18 03/08/22 00:20 BP 84/36 L 03/08/22 00:20 Pulse Ox 96 03/08/22 00:20 O2 Del Method 03/08/22 00:20 BMI result Body Mass Index 31.8 Const: Other: Appearance: Somnolent, arousable to voice. Patient does have slurred speech. Eyes: Pupils equal, round and reactive to light. ENT: Pharynx normal. Neck: Normal inspection. Neck supple. No lymph nodes noted. No crepitus CVS: Normal heart rate and rhythm. Pulses normal. Normal S1 and S2 Respiratory: No respiratory distress. Breath sounds normal. No Wheezing. No rales Abdomen: Soft and nontender. No rigidity. No distention. Skin: Skin warm and dry. Normal skin color. Normal skin turgor. Extremities: No lower extremity edema. No Lacerations. No Rash Neuro: Oriented X 3. No motor deficit. No sensory deficit. Moving all extremities.CN 2 through 12 grossly intact Psych: calm, cooperative, normal affect Course Course Course Narrative: On arrival, patient is hypotensive. Patient has presented to the emergency room in similar way. Usually patient overdoses with fentanyl/opiates. This time, patient states that she used a lot benzodiazepines Patient's blood pressure in the low 60s, high 70s, patient given 3 L of normal saline, patient's blood pressure now in the high 80s/low 90s, in low 100s all of the labs and imaging pending. 00:01, we finally got the urine, patient has a mild UTI. However, patient's low blood pressure is unlikely secondary to mild UTI. Patient is known to overdose with fentanyl, likely causing a significant drop in blood pressure. Patient has been admitted to the ICU for similar circumstances. Urine toxicology positive for fentanyl. Patient already received 3 L of fluid, patient is being given 1 dose of ceftriaxone at this time. Lactic acid elevation likely secondary to prolonged hypotension. Earlier today, patient told the paramedics that she overdosed accidentally with benzodiazepines, there were no benzos detected in the urine. Up until now, 00:01, there was no reason to suspect infection, x-ray negative, white blood cell count within normal limits, no fever. Narcan drip has not been started, patient's oxygen saturation remains at 96 on room air, arousable to voice, patient requesting food but not given at this time because she remains fairly somnolent I discussed the patient with Dr. Beebe, patient will be admitted to the intensive care unit Medications Administered Generic Name Dose Route Start Last Admin Trade Name Freq PRN Reason Stop Dose Admin Magnesium Sulfate 2 gm in 50 mls @ 25 mls/hr 03/07/22 23:55 03/08/22 00:19 Magnesium Sulfate/H2o IV 03/08/22 01:54 25 mls/hr ONCE ONE Administration Sodium Chloride 1,000 mls @ 999 mls/hr 03/08/22 01:14 03/08/22 01:28 Ns IVCONT 03/08/22 02:14 999 mls/hr .Q1H1M ONE Administration Discontinued Medications Generic Name Dose Route Start Last Admin Trade Name Freq PRN Reason Stop Dose Admin Sodium Chloride 3,000 mls @ 999 mls/hr 03/07/22 22:01 03/08/22 01:28 Ns IVCONT 03/08/22 01:01 Infused .Q3H1M ONE Infusion Ceftriaxone Sodium 1 gm/ 50 mls @ 100 mls/hr 03/07/22 23:59 03/08/22 00:28 Sodium Chloride IV 03/08/22 00:28 Infused ONCE ONE Infusion Medical Decision Making Differential Diagnosis Differential Diagnoses: The differential diagnosis associated with the presentation includes Substance overdose, sepsis Admission/Observation Consideration of admission/observation: Escalation of care including admission/observation considered Patient's blood pressure remains low, likely secondary to fentanyl overdose. However, patient also has a UTI. Consult Healthcare Provider Management of the patient was discussed with: Hospitalist (Dr. Beebe agreed to admit pt) Lab Data MDM Lab Attestation statement: I reviewed the patient's lab results. Result Diagrams: 03/07/22 23:20 03/07/22 23:20 Labs: Lab Results 03/07/22 03/07/22 03/07/22 Range/Units 20:04 23:20 23:20 WBC 10.4 (4.8-10.8) X10*3/uL RBC 3.93 L (4.20-5.50) X10*6/uL Hgb 10.9 L (12.0-16.0) g/dl Hct 32.8 L (37.0-47.0) % MCV 83.5 (80.0-98.0) fL MCH 27.7 (27.0-33.0) pg MCHC 33.2 (31.0-35.0) g/dl RDW 15.7 (11.0-16.0) % Plt Count 237 (160-400) X10*3/uL MPV 11.0 (9.4-12.3) fL Immature Gran % (Auto) 0.4 (0.0-0.4) % Neut % (Auto) 64.1 (45-73) % Lymph % (Auto) 29.0 (20-40) % Ceiba % (Auto) 5.1 (2-11) % Eos % (Auto) 0.8 (0-4) % Baso % (Auto) 0.6 (0-2) % Lymph # (Auto) 3.0 (1.2-4.9) X10*3/uL Ceiba # (Auto) 0.5 (0.1-1.2) X10*3/uL Eos # (Auto) 0.1 (0.0-0.4) X10*3/uL Baso # (Auto) 0.1 (0.0-0.2) X10*3/uL Abs Immat Gran (auto) 0.04 H (0.00-0.03) X10*3/uL Absolute Neuts (auto) 6.7 (2.0-8.3) x10*3/uL Absolute Nucleated RBC 0.000 (0.0-0.012) X10*3/uL Nucleated RBC % (auto) 0.0 (0.0-0.2) /100WBC Sodium 140 (135-145) mmol/L Potassium 4.4 (3.3-5.1) mmol/L Chloride 108 (96-108) mmol/L Carbon Dioxide 22 (22-29) mmol/L Anion Gap 14 (12-20) BUN 26 H (9-16) mg/dL Creatinine 1.16 (0.5-1.4) mg/dL Estim Creat Clear Calc 63.8 Estimated GFR 48 POC Glucose 285 H (60-115) mg/dL Random Glucose 272 H (60-115) mg/dL Lactic Acid (0.5-2.0) mmol/L Calcium 8.3 L D (8.4-10.2) mg/dL Magnesium 1.2 L* (1.6-2.6) mg/dL Total Bilirubin 0.3 (0.0-1.0) mg/dL Direct Bilirubin < 0.2 (0.0-0.5) mg/dL AST 11 (5-31) U/L ALT 11 (0-31) U/L Alkaline Phosphatase 85 (39-117) U/L Troponin I High Sens (<3.5-17.0) ng/L Total Protein 5.7 L (6.5-8.0) g/dL Albumin 3.4 L (3.5-5.0) g/dL Urine Color Urine Appearance Urine pH (5.0-9.0) Ur Specific Creole (1.005-1.025) Urine Protein (Neg-Trace) mg/dL Urine Glucose (UA) (Negative) mg/dL Urine Ketones (Negative) mg/dL Urine Blood (Negative) Urine Nitrite (Negative) Ur Leukocyte Esterase (Negative) Urine RBC (0-2) /HPF Urine WBC (0-5) /HPF Ur Squamous Epith Cells (0-2) /HPF Urine Bacteria (None Seen) Hyaline Casts (0-2) /LPF Urine Opiates Screen (Not Detect) Urine Fentanyl Screen (Not Detect) Ur Barbiturates Screen (Not Detect) Ur Phencyclidine Scrn (Not Detect) Ur Amphetamines Screen (Not Detect) U Benzodiazepines Scrn (Not Detect) Urine Cocaine Screen (Not Detect) U Marijuana (THC) Screen (Not Detect) Ethyl Alcohol mg/dL COVID-19 (MARLYS) (Negative) COVID-19 Clin Com 12/03/07/22 03/07/22 Range/Units 23:20 23:20 23:20 WBC (4.8-10.8) X10*3/uL RBC (4.20-5.50) X10*6/uL Hgb (12.0-16.0) g/dl Hct (37.0-47.0) % MCV (80.0-98.0) fL MCH (27.0-33.0) pg MCHC (31.0-35.0) g/dl RDW (11.0-16.0) % Plt Count (160-400) X10*3/uL MPV (9.4-12.3) fL Immature Gran % (Auto) (0.0-0.4) % Neut % (Auto) (45-73) % Lymph % (Auto) (20-40) % [place] % (Auto) (2-11) % Eos % (Auto) (0-4) % Baso % (Auto) (0-2) % Lymph # (Auto) (1.2-4.9) X10*3/uL Ceiba # (Auto) (0.1-1.2) X10*3/uL Eos # (Auto) (0.0-0.4) X10*3/uL Baso # (Auto) (0.0-0.2) X10*3/uL Abs Immat Gran (auto) (0.00-0.03) X10*3/uL Absolute Neuts (auto) (2.0-8.3) x10*3/uL Absolute Nucleated RBC (0.0-0.012) X10*3/uL Nucleated RBC % (auto) (0.0-0.2) /100WBC Sodium (135-145) mmol/L Potassium (3.3-5.1) mmol/L Chloride (96-108) mmol/L Carbon Dioxide (22-29) mmol/L Anion Gap (12-20) BUN (9-16) mg/dL Creatinine (0.5-1.4) mg/dL Estim Creat Clear Calc Estimated GFR POC Glucose (60-115) mg/dL Random Glucose (60-115) mg/dL Lactic Acid 2.9 H* (0.5-2.0) mmol/L Calcium (8.4-10.2) mg/dL Magnesium (1.6-2.6) mg/dL Total Bilirubin (0.0-1.0) mg/dL Direct Bilirubin (0.0-0.5) mg/dL AST (5-31) U/L ALT (0-31) U/L Alkaline Phosphatase (39-117) U/L Troponin I High Sens 5.5 (<3.5-17.0) ng/L Total Protein (6.5-8.0) g/dL Albumin (3.5-5.0) g/dL Urine Color Urine Appearance Urine pH (5.0-9.0) Ur Specific Cre[place] (1.005-1.025) Urine Protein (Neg-Trace) mg/dL Urine Glucose (UA) (Negative) mg/dL Urine Ketones (Negative) mg/dL Urine Blood (Negative) Urine Nitrite (Negative) Ur Leukocyte Esterase (Negative) Urine RBC (0-2) /HPF Urine WBC (0-5) /HPF Ur Squamous Epith Cells (0-2) /HPF Urine Bacteria (None Seen) Hyaline Casts (0-2) /LPF Urine Opiates Screen (Not Detect) Urine Fentanyl Screen (Not Detect) Ur Barbiturates Screen (Not Detect) Ur Phencyclidine Scrn (Not Detect) Ur Amphetamines Screen (Not Detect) U Benzodiazepines Scrn (Not Detect) Urine Cocaine Screen (Not Detect) U Marijuana (THC) Screen (Not Detect) Ethyl Alcohol mg/dL COVID-19 (MARLYS) Negative (Negative) COVID-19 Clin Com See Note 03/07/22 03/07/22 03/07/22 Range/Units 23:20 23:28 23:28 WBC (4.8-10.8) X10*3/uL RBC (4.20-5.50) X10*6/uL Hgb (12.0-16.0) g/dl Hct (37.0-47.0) % MCV (80.0-98.0) fL MCH (27.0-33.0) pg MCHC (31.0-35.0) g/dl RDW (11.0-16.0) % Plt Count (160-400) X10*3/uL MPV (9.4-12.3) fL Immature Gran % (Auto) (0.0-0.4) % Neut % (Auto) (45-73) % Lymph % (Auto) (20-40) % Ceiba % (Auto) (2-11) % Eos % (Auto) (0-4) % Baso % (Auto) (0-2) % Lymph # (Auto) (1.2-4.9) X10*3/uL Ceiba # (Auto) (0.1-1.2) X10*3/uL Eos # (Auto) (0.0-0.4) X10*3/uL Baso # (Auto) (0.0-0.2) X10*3/uL Abs Immat Gran (auto) (0.00-0.03) X10*3/uL Absolute Neuts (auto) (2.0-8.3) x10*3/uL Absolute Nucleated RBC (0.0-0.012) X10*3/uL Nucleated RBC % (auto) (0.0-0.2) /100WBC Sodium (135-145) mmol/L Potassium (3.3-5.1) mmol/L Chloride (96-108) mmol/L Carbon Dioxide (22-29) mmol/L Anion Gap (12-20) BUN (9-16) mg/dL Creatinine (0.5-1.4) mg/dL Estim Creat Clear Calc Estimated GFR POC Glucose (60-115) mg/dL Random Glucose (60-115) mg/dL Lactic Acid (0.5-2.0) mmol/L Calcium (8.4-10.2) mg/dL Magnesium (1.6-2.6) mg/dL Total Bilirubin (0.0-1.0) mg/dL Direct Bilirubin (0.0-0.5) mg/dL AST (5-31) U/L ALT (0-31) U/L Alkaline Phosphatase (39-117) U/L Troponin I High Sens (<3.5-17.0) ng/L Total Protein (6.5-8.0) g/dL Albumin (3.5-5.0) g/dL Urine Color Yellow Urine Appearance Clear Urine pH 5.5 (5.0-9.0) Ur Specific Creole 1.010 (1.005-1.025) Urine Protein 30 (1+) H (Neg-Trace) mg/dL Urine Glucose (UA) 100 H (Negative) mg/dL Urine Ketones Negative (Negative) mg/dL Urine Blood Negative (Negative) Urine Nitrite Positive H (Negative) Ur Leukocyte Esterase Small (1+) H (Negative) Urine RBC 0-2 (0-2) /HPF Urine WBC 21-50 H (0-5) /HPF Ur Squamous Epith Cells 0-2 (0-2) /HPF Urine Bacteria 4+ (None Seen) Hyaline Casts 0-2 (0-2) /LPF Urine Opiates Screen Not Detected (Not Detect) Urine Fentanyl Screen POSITIVE H (Not Detect) Ur Barbiturates Screen Not Detected (Not Detect) Ur Phencyclidine Scrn Not Detected (Not Detect) Ur Amphetamines Screen Not Detected (Not Detect) U Benzodiazepines Scrn Not Detected (Not Detect) Urine Cocaine Screen Not Detected (Not Detect) U Marijuana (THC) Screen Not Detected (Not Detect) Ethyl Alcohol < 10 mg/dL COVID-19 (MARLYS) (Negative) COVID-19 Clin Com Independent Interpretation I performed an independent interpretation of an: Plain X-Ray (My interpretation of x-ray: No infiltrates) Radiology Impression Discussion of test interpretation with radiology: I have reviewed the radiologist's reading. Radiologist Impression: FINDINGS: EKG leads overlie the chest. Lungs are clear. No consolidation, pneumothorax, or pleural effusion. Cardiac and mediastinal contours are normal. Pulmonary vasculature is unremarkable. 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 XR/XR chest 1V IMPRESSION: No acute cardiopulmonary findings Independent Historian Clinical information obtained from an independent historian. History obtained from or confirmed by: EMS Critical Care Time Critical Care Time Critical Care Time: Yes Total Critical Care Time: 120 Attestation: I have personally provided critical care time. Time includes review of lab data, radiology results, discussion with consultants, and monitoring for potential dec ompensation. Intervention performed as documented. Discharge Plan Discharge Clinical Impression: Overdose of fentanyl, UTI (urinary tract infection) Patient Disposition: Admitted As Inpatient Prescriptions: No Action acetaminophen [Tylenol Extra Strength] 500 mg tablet 500 mg PO Q6H PRN (Reason: fever or pain) Qty: 14 0RF lorazepam 0.5 mg Tablet 0.5 mg PO DAILY PRN (Reason: Anxiety) metformin 1,000 mg tablet 1,000 mg PO BID multivitamin Tablet 1 tab PO DAILY pregabalin [Lyrica] 75 mg Capsule 75 mg PO BID Qty: 60 0RF atorvastatin 20 mg tablet 20 mg PO DAILY clonazepam 0.5 mg tablet 0.5 mg PO DAILY PRN (Reason: Anxiety) lisinopril 30 mg tablet 30 mg PO DAILY duloxetine 30 mg capsule,delayed release(DR/EC) 30 mg PO BID Januvia 100 mg tablet 100 tab PO DAILY haloperidol 1 mg Tablet 2 mg PO TID Qty: 90 0RF Rx Instructions: Take for 15 days and follow up with your psychiatrist to further adjust medications Latuda 40 mg Tablet 40 mg PO DAILY@1800 Qty: 30 0RF prazosin 1 mg Capsule 3 mg PO BEDTIME Qty: 90 0RF Protocol: Hold for SBP< HOLD for SBP < : 90 quetiapine 100 mg Tablet 100 mg PO BEDTIME Qty: 30 0RF quetiapine 50 mg Tablet 50 mg PO BID PRN (Reason: agitation, anxiety) Qty: 120 0RF Interventions: [place]-Suicide Risk Severity Scale Last Done: 03/07/22 22:29
[2022-03-07] MEDS: 0.9 % Sodium Chloride 3,000 ML 999 ML IVCONT (22:34)
--- NOTE | 2022-03-07 22:35 | PC.NURSE ---
Pt's BP is on the low side, Pt's has 3rd NS bolus running. Pt is speaking clearly at the time for the re-assessment. Pt is a/o x3, will continue to monitor.
[2022-03-07 23:27] LABS: Basophils Absolute Auto 0.1 X10*3/uL (0.0-0.2); Basophils Percent Auto 0.6 % (0-2); Eosinophils Absolute Auto 0.1 X10*3/uL (0.0-0.4); Eosinophils Percent Auto 0.8 % (0-4); Hematocrit 32.8 % (37.0-47.0); Hemoglobin 10.9 g/dl (12.0-16.0); Imm Gran Abs Auto 0.04 X10*3/uL (0.00-0.03); Imm Gran Pct Auto 0.4 % (0.0-0.4); MANUAL DIFF FLAG NO; Mean Corpuscular HGB Conc 33.2 g/dl (31.0-35.0); Mean Corpuscular Hemoglobin 27.7 pg (27.0-33.0); Mean Corpuscular Volume 83.5 fL (80.0-98.0); Monocytes Absolute Auto 0.5 X10*3/uL (0.1-1.2); Monocytes Percent Auto 5.1 % (2-11); Neutrophils Absolute Auto 6.7 x10*3/uL (2.0-8.3); Neutrophils Percent Auto 64.1 % (45-73); Platelet Count 237 X10*3/uL (160-400); Red Blood Count 3.93 X10*6/uL (4.20-5.50); Red Cell Distribution Width 15.7 % (11.0-16.0); White Blood Count 10.4 X10*3/uL (4.8-10.8)
[2022-03-07 23:39] LABS: Appearance Urine Clear; Color Urine Yellow; Glucose Urine UA 100 mg/dL (Negative); Leukocyte Esterase Urine Small (1+) (Negative); Nitrite Urine Positive (Negative); PH 5.5 (5.0-9.0); UMIC TRIGGER UACC YES; Urine Blood Negative (Negative); Urine Ketones Negative (Negative); Urine Protein 30 (1+) mg/dL (Neg-Trace)
[2022-03-07 23:40] LABS: COVID-19 Test Negative (Negative); IDNOW Serial# BCCEAD1C
[2022-03-07 23:44] LABS: Ethanol < 10 mg/dL
[2022-03-07 23:46] LABS: Lactic Acid 2.9 mmol/L (0.5-2.0)
[2022-03-07 23:48] LABS: Amphetamine Screen Urine Not Detected (Not Detect); Barbiturates, Urine Not Detected (Not Detect); Benzodiazepines Screen Urine Not Detected (Not Detect); Cannabinoid Screen Urine Not Detected (Not Detect); Cocaine Screen Urine Not Detected (Not Detect); Fentanyl, urine POSITIVE (Not Detect); Opiate Screen Urine Not Detected (Not Detect); Phencyclidine Screen Urine Not Detected (Not Detect)
[2022-03-07 23:49] LABS: Bacteria Urine 4+ (None Seen); Hyaline Casts Urine 0-2 /LPF (0-2); RBC Urine 0-2 /HPF (0-2); Squamous Epithelial Cell Urine 0-2 /HPF (0-2); UACC Culture Trigger YES; WBC Urine 21-50 /HPF (0-5)
--- NOTE | 2022-03-07 23:51 | PC.NURSE ---
labs and urine obtained.Pt repositioned and purewick put in place
[2022-03-07 23:52] LABS: Troponin-I High Sensitivity 5.5 ng/L (<3.5-17.0)
[2022-03-07 23:56] LABS: Alanine Aminotransferase 11 U/L (0-31); Albumin Level 3.4 g/dL (3.5-5.0); Alkaline Phosphatase 85 U/L (39-117); Anion Gap 14 (12-20); Aspartate Amino Transferase 11 U/L (5-31); Bilirubin Direct < 0.2 mg/dL (0.0-0.5); Bilirubin Total 0.3 mg/dL (0.0-1.0); Blood Urea Nitrogen 26 mg/dL (9-16); Calcium 8.3 mg/dL (8.4-10.2); Carbon Dioxide 22 mmol/L (22-29); Chloride 108 mmol/L (96-108); Creatinine Clr Calc Pharmacy 63.8; Estimated Glomerular Filt Rate 48; Glucose Random 272 mg/dL (60-115); Magnesium 1.2 mg/dL (1.6-2.6); Potassium 4.4 mmol/L (3.3-5.1); Sodium 140 mmol/L (135-145); Total Protein 5.7 g/dL (6.5-8.0)
[2022-03-08] VITALS (7 sets, daily range): BP systolic 84–149; BP diastolic 36–75; PULSE 62–80; RESP 11–22; TEMP 35.7–36.1; O2SAT 94–99; BMI 32.5
[2022-03-08] MEDS: cefTRIAXone sodium 1 GM in 0.9 % Sodium Chloride 50 ML IV ×2 (00:18→03:24)
[2022-03-08] MEDS: Magnesium Sulfate/H2O 2 GM/50 ML PIGGYBACK IV (00:19)
--- NOTE | 2022-03-08 00:28 | PC.NURSE ---
Re-assessment: Pt was took out from trendelenburg position for 15 min secondary to monitor her BP, BP dropped. Pt is placed back to trendelenburg position, Meds are given as order. 3rd NS is running. Pt is pacing and seems unconfartable altough pt is not clear wiht wording yet.
[2022-03-08 01:25] LABS: Reflex Lactate? Lactic Acid Added
[2022-03-08] MEDS: 0.9 % Sodium Chloride 1,000 ML 999 ML IVCONT (01:28)
--- NOTE | 2022-03-08 01:30 | PC.NURSE ---
Pt's BP is increasing 103/37, pt is sleeping, pt 4th IVF is running.
--- NOTE | 2022-03-08 01:53 | PM.CCHP ---
History of Present Illness Date of Service: 03/08/22 Attending physician on admission: Keith Beebe Chief Complaint: OD, Sepsis, UTI HPI: ?49-year-old morbidly obese female with underlying history of practice sleep apnea, acute kidney injury, hyponatremia, rhabdomyolysis, UTI, prior overdoses, asthma, bipolar, chronic pain, diabetes, hypertension, IBS, peripheral neuropathy, seizures.? Patient had presented to the emergency room, who is well-known due to recurrent ventral overdoses.? Presented barely awake however denying the use of fentanyl and stating that she 2 clonazepam and lorazepam. ?Family members called 911 reporting the patient had a sudden mental status change and was somnolent and lethargic, they had taking her to the bathroom but they were unable to get her up. ?EMS had found the patient sitting in the bathroom, lethargic but denying any other complaints. ? In the ER, the patient was hypotensive with lowest blood pressure of 84/36 but otherwise normal vital signs, somnolent and with slurred speech. ?Her workup did not reveal a white count H&H of 10.9 and 32.8 respectively, platelets 237 electrolytes were unremarkable however her BUN to creatinine ratio was greater than 20, blood sugar of 272, lactic acid 2.9 and magnesium of 1.2.? Urinalysis was positive for a UTI. ?In addition her urine tested positive for fentanyl but no benzos detected.? COVID negative. ?Patient was given 30 mL/kilo of IV fluids and magnesium was repleted, started on Rocephin.? ? Despite of fluid resuscitation patient's blood pressure continued to be low and she continues to be quite somnolent however no Narcan had been administered. There my evaluation the patient is minimally arousable with verbal stimuli, does wake up with sternal rub, unable to follow commands, speaking with slurred speech. ? ROS:? Unable to obtain ? Past Medical History:? As above ? Past Surgical History:? Appendectomy ? Family history:? Noncontributory ? Social History:? Reportedly she lives in assisted living facility, no history of tobacco, no history of alcohol, has a history of polysubstance abuse with benzodiazepines and opioids ? CODE STATUS: FULL CODE ? Allergies: NKDA ? Home Medications: See Med Rec ? SEPSIS PHYSICAL EXAM DONE AT 0130 am VS: 84/36; 67, 18, 96% room air, 96.7 F General:? Morbidly obese.? Significantly somnolent, mumbles words, requesting to eat, however not able to follow commands. Skin:? Intact, no lesions, edema, erythema, clubbing or cyanosis.? No ulcers. HEENT:? Head is normocephalic, atraumatic, pupils equal 3 mm round and fixed,. Buccal mucosa is pasty dry, Neck is supple without lymphadenopathy. Cardiac:? Clear S1-S2, no murmurs rubs or gallops. Pulmonary:? Slightly coarse with poor inspiratory effort particularly in the upper lung montoya without rhonchi, rales or to find crackles. Abdomen:? Protuberant, positive bowel sounds in all 4 quadrants.? Soft, nontender, no rebound or guarding.? Musculoskeletal:? Patient not able to follow commands, unable to move upper and lower extremities upon request at the major joints.? There is no cogwheeling, no leg edema no asymmetry. Neurologic:? As above, cranial nerves 2-12 are grossly intact.? No focal deficits noted. Motor strength as above.? Vascular:? 2+ pulses upper and lower extremities distally. ?Less than 2nd capillary refill at the finger and toes bilaterally. ? SIGNIFICANT LABORATORY DATA:? As above ? REVIEW OF IMAGES: Head CT FINDINGS: There is no evidence of acute intracranial hemorrhage or territorial infarction. No abnormal mass-effect or midline shift is seen. [place] to white matter differentiation is well preserved. No extra-axial fluid collections are identified. The ventricles are normal in size. There is no abnormal attenuation within the brain parenchyma. There is no osseous abnormality. The mastoid air cells and visualized portions of the paranasal sinuses are well-aerated. EKG REVIEW:? To my view disease sinus rhythm ventricular rate 70 beats per minute.? There is no ST elevations no ST depressions.? QTC 414.? No comparison available. ? ASSESSMENT : 1. Fentanyl overdose likely accidental 2. Sepsis and septic shock although low blood pressure can be due to overdose and lactic acidosis can be due to metformin intake 3. Urinary tract infection 4. Lactic acidosis suspected to be influenced by Metfomin 5. Metabolic encephalopathy 6. Significant hypomagnesemia 7. Acute kidney injury with BUN to creatinine ratio >23 8. Normocytic anemia rule out iron deficiency versus chronic disease 9. Clinical dehydration 10. Uncontrolled diabetes mellitus type 2 11.Pseudo hypocalcemia with corrected calcium level of 8.7 12. Hypoalbuminemia 13. History of polysubstance use including benzodiazepines and opioids ? PLAN OF CARE: Admit to ICU, close vital signs monitoring, I's and O's, patient does not have IV access will need a central line, she has already received 4 L of IV fluids, however looks quite dehydrated, will continue with gentle IV fluids and started on Rocephin every 24 hours will repeat lactic acid and repeat labs in the morning.? She appears to be breathing fine and I will give her a single dose of Narcan now and if this works, will consider Narcan drip, will order a venous blood gas, order ammonia level to further define her encephalopathy, magnesium and phosphorus levels in the morning, insulin sliding scale, albumin salt x2 bags and Narcan to see if her blood pressure improves both by increasing the oncotic pressure as well as waking her up a little bit more rather than start her on vasopressors right away.? Her lungs do sound a little coarse and she has poor inspiratory effort, will obtain a chest x-ray given the long coarseness and to rule out aspiration pneumonitis. ? Clinical update 0610 am Patient remains hemodynamically stable, after Narcan administration, the patient did wake up and after receiving albumin and 1 more L of IV fluids, her blood pressure improved significantly and has remained above 100 systolic throughout the shore stay here in the ICU. At this point the patient is no longer sedated or sleepy, she is hemodynamically stable; she is now arousable to verbal stimuli, follows all commands. Skin is unchanged. Heart is regular, lungs are slightly coarse particularly at the left middle area. No leg edema. Ashford catheter in place with moderate amount of dark yellow urine. I do not think that she needs ICU anymore. As mentioned above, I do not believe that her low blood pressure was directly related to sepsis but rather due to her overdose and the fact that she was dehydrated. Laboratories from this morning reviewed, She has developed a slight white count, her electrolytes are overall normal and her BUN to creatinine ratio has improved. The lactic acid however has gone up, but this was somewhat suspected given my suspicion for metformin related lactic acidosis. Chest x-ray appears to have some infiltrates on the left perihilar area, will add Zithromax IV. At this point the patient would be sign-out to the hospitalist and transferred to [facility]. Case discussed with Dr. Best GI PROPHYLAXIS:? No need DVT PROPHYLAXIS:? Lovenox subQ daily ? Critical care time used for critical evaluation of this patient, diagnosis, treatment and coordination of care, review her records and documentation TOTAL CRITICAL CARE TIME?120 MIN . discussion and coordination with consultants, completely separate from any procedures performed. Patient's care was discussed in detail with Dr. Beebe.? He is aware of all the above as well as the plan of care for this patient. [facility] Past Medical History Medical History Asthma Bipolar disorder Chronic pain Diabetes Hypertension IBS (irritable bowel syndrome) Opioid use disorder Peripheral neuropathy Polysubstance abuse Seizure Surgical History Surgical History History of appendectomy Social History Social History Household Members: Friend(s) Household Members Other:: roommate Housing: House Do you presently have visiting nurse or other home services: No Unable to assess alcohol history related to: Unable to respond Alcohol intake: never Patient Tobacco Use Status: Never used Tobacco Substance Use Type: Painkillers Advance Directives Date on File: 09/03/21 service: No Current occupational status: disabled Meds Allergies Allergy/AdvReac Type Severity Reaction Status Date / Time morphine [MORPHINE] Allergy Unknown RASH, vomit Verified 01/15/22 00:48 prednisone Allergy Unknown hives Verified 01/15/22 00:48 Sulfa (Sulfonamide Allergy Unknown UNKNOWN, Verified 01/15/22 00:48 Antibiotics) hives [SULFA (SULFONAMIDE ANTIBIOTICS)] Active Medications: Current Medications Enoxaparin Sodium (Enoxaparin Sodium 40 Mg/0.4 Ml Syringe) 40 mg SUBCUT Q24H SARMAD Magnesium Sulfate (Magnesium Sulfate/H2o) 2 gm in 50 mls @ 25 mls/hr IV ONCE ONE Stop: 03/08/22 01:54 Last Admin: 03/08/22 00:19 Dose: 25 mls/hr Sodium Chloride (Ns) 1,000 mls @ 999 mls/hr IVCONT .Q1H1M ONE Stop: 03/08/22 02:14 Last Admin: 03/08/22 01:28 Dose: 999 mls/hr Ceftriaxone Sodium 1 gm/ (Sodium Chloride) 50 mls @ 100 mls/hr IV Q24H SARMAD Home Medications Medication Instructions Recorded Confirmed Last Taken Type lorazepam 0.5 mg tablet 0.5 mg PO DAILY 07/15/21 03/08/22 03/07/22 History metformin 1,000 mg tablet 1,000 mg PO BID 09/03/21 03/08/22 03/07/22 History multivitamin 1 tab PO DAILY 09/03/21 03/08/22 03/07/22 History atorvastatin 20 mg tablet 20 mg PO DAILY 01/15/22 03/08/22 03/07/22 History clonazepam 0.5 mg tablet 0.5 mg PO DAILY PRN Anxiety 01/15/22 03/08/22 03/07/22 History duloxetine 30 mg capsule,delayed 30 mg PO BID 01/15/22 03/08/22 03/07/22 History release lisinopril 30 mg tablet 30 mg PO DAILY 01/15/22 03/08/22 03/07/22 History sitagliptin phosphate 100 mg 100 tab PO BEDTIME 01/15/22 03/08/22 03/07/22 History tablet (Januvia) clonidine HCl 0.2 mg tablet 1 tab PO TID PRN Anxiety 03/08/22 03/08/22 03/07/22 History haloperidol 1 mg tablet 1 mg PO TID 03/08/22 03/08/22 03/07/22 History hydralazine 25 mg tablet 1 tab PO TID 03/08/22 03/08/22 03/07/22 History prazosin 1 mg capsule 1 mg PO BEDTIME 03/08/22 03/08/22 03/07/22 History pregabalin 100 mg capsule 1 cap PO TID 03/08/22 03/08/22 03/07/22 History quetiapine 200 mg tablet 1 tab PO BEDTIME 03/08/22 03/08/22 03/07/22 History Physical Exam Vital Signs: Vital Signs: Last Vital Signs Temp 96.7 F L 03/08/22 00:20 Pulse 67 03/08/22 00:20 Resp 18 03/08/22 00:20 BP 84/36 L 03/08/22 00:20 Pulse Ox 96 03/08/22 00:20 O2 Del Method 03/08/22 00:20 BMI result Body Mass Index 31.8 Results Labs CBC and Chem 7: 03/08/22 04:47 03/08/22 04:47 Labs: Laboratory Results - last 24 hr 03/07/22 03/07/22 03/07/22 20:04 23:20 23:20 MCV 83.5 MCH 27.7 MCHC 33.2 RDW 15.7 Plt Count 237 MPV 11.0 Immature Gran % (Auto) 0.4 Neut % (Auto) 64.1 Lymph % (Auto) 29.0 Calloway % (Auto) 5.1 Eos % (Auto) 0.8 Baso % (Auto) 0.6 Lymph # (Auto) 3.0 [place]allow[place] # (Auto) 0.5 Eos # (Auto) 0.1 Baso # (Auto) 0.1 Abs Immat Gran (auto) 0.04 H Absolute Neuts (auto) 6.7 Absolute Nucleated RBC 0.000 Nucleated RBC % (auto) 0.0 Anion Gap 14 Estim Creat Clear Calc 63.8 Estimated GFR 48 POC Glucose 285 H Random Glucose 272 H Lactic Acid Calcium 8.3 L D Magnesium 1.2 L* Total Bilirubin 0.3 Direct Bilirubin < 0.2 AST 11 ALT 11 Alkaline Phosphatase 85 Troponin I High Sens Total Protein 5.7 L Albumin 3.4 L Urine Color Urine Appearance Urine pH Ur Specific [place] Urine Protein Urine Glucose (UA) Urine Ketones Urine Blood Urine Nitrite Ur Leukocyte Esterase Urine RBC Urine WBC Ur Squamous Epith Cells Urine Bacteria Hyaline Casts Urine Opiates Screen Urine Fentanyl Screen Ur Barbiturates Screen Ur Phencyclidine Scrn Ur Amphetamines Screen U Benzodiazepines Scrn Urine Cocaine Screen U Marijuana (THC) Screen Ethyl Alcohol COVID-19 (MARLYS) COVID-19 Clin Com 03/07/22 03/07/22 03/07/22 23:20 23:20 23:20 MCV MCH MCHC RDW Plt Count MPV Immature Gran % (Auto) Neut % (Auto) Lymph % (Auto) [place] % (Auto) Eos % (Auto) Baso % (Auto) Lymph # (Auto) [place] # (Auto) Eos # (Auto) Baso # (Auto) Abs Immat Gran (auto) Absolute Neuts (auto) Absolute Nucleated RBC Nucleated RBC % (auto) Anion Gap Estim Creat Clear Calc Estimated GFR POC Glucose Random Glucose Lactic Acid 2.9 H* Calcium Magnesium Total Bilirubin Direct Bilirubin AST ALT Alkaline Phosphatase Troponin I High Sens 5.5 Total Protein Albumin Urine Color Urine Appearance Urine pH Ur Specific [place] Urine Protein Urine Glucose (UA) Urine Ketones Urine Blood Urine Nitrite Ur Leukocyte Esterase Urine RBC Urine WBC Ur Squamous Epith Cells Urine Bacteria Hyaline Casts Urine Opiates Screen Urine Fentanyl Screen Ur Barbiturates Screen Ur Phencyclidine Scrn Ur Amphetamines Screen U Benzodiazepines Scrn Urine Cocaine Screen U Marijuana (THC) Screen Ethyl Alcohol COVID-19 (MARLYS) Negative COVID-19 Clin Com See Note 03/07/22 03/07/22 03/07/22 23:20 23:28 23:28 MCV MCH MCHC RDW Plt Count MPV Immature Gran % (Auto) Neut % (Auto) Lymph % (Auto) [place] % (Auto) Eos % (Auto) Baso % (Auto) Lymph # (Auto) [place] # (Auto) Eos # (Auto) Baso # (Auto) Abs Immat Gran (auto) Absolute Neuts (auto) Absolute Nucleated RBC Nucleated RBC % (auto) Anion Gap Estim Creat Clear Calc Estimated GFR POC Glucose Random Glucose Lactic Acid Calcium Magnesium Total Bilirubin Direct Bilirubin AST ALT Alkaline Phosphatase Troponin I High Sens Total Protein Albumin Urine Color Yellow Urine Appearance Clear Urine pH 5.5 Ur Specific [place] 1.010 Urine Protein 30 (1+) H Urine Glucose (UA) 100 H Urine Ketones Negative Urine Blood Negative Urine Nitrite Positive H Ur Leukocyte Esterase Small (1+) H Urine RBC 0-2 Urine WBC 21-50 H Ur Squamous Epith Cells 0-2 Urine Bacteria 4+ Hyaline Casts 0-2 Urine Opiates Screen Not Detected Urine Fentanyl Screen POSITIVE H Ur Barbiturates Screen Not Detected Ur Phencyclidine Scrn Not Detected Ur Amphetamines Screen Not Detected U Benzodiazepines Scrn Not Detected Urine Cocaine Screen Not Detected U Marijuana (THC) Screen Not Detected Ethyl Alcohol < 10 COVID-19 (MARLYS) COVID-19 Clin Com Imaging Radiologist's Impressions: Impressions Head CT 03/07/22 22:48 IMPRESSION: No acute intracranial pathology. Assessment and Plan Time Spent With Patient Time: Total time managing care of this patient today ____ minutes.
[2022-03-08 02:40] LABS: Venous Blood Gas Refer to POC result
[2022-03-08 02:42] LABS: Lactic Acid 2.1 mmol/L (0.5-2.0)
[2022-03-08 02:44] LABS: VBG Base Excess -5.1 mmol/L; VBG HCO3 19 mmol/L (22-26); VBG pCO2 34 mmHg; VBG pH 7.35 (7.32-7.43); VBG pO2 91 mmHg
[2022-03-08] MEDS: Enoxaparin Sodium 40 MG/0.4 ML SYRINGE SUBCUT (02:58)
[2022-03-08] MEDS: Naloxone HCl 0.4 MG/ML VIAL IVPUSH (03:32)
--- NOTE | 2022-03-08 03:34 | PC.NURSE ---
Re-assessment/ Transferred: This RN transported pt with Zara King to ICU. Pt is hypotensive after 3 bolus of NS. Pt was placed in semi mixon position and her BP dropped to low 80. Pt was placed back to the trendelenburg position, IV was infiltrated when 4th bag was running. IV was removed by this nurse. Pt was on the finisher fine diamond dies and it shows NSR, afribile taken rectally, on sat 94% on room air. Pt denies being SI or HI. Pt appears somnolence, a/o x3. Pt was straght cath order by the MD. and the urine output was 600. This nurse gave report to SOCIAL WORK PROFESSOR, it was transferred successfully. For further information check worklist.
[2022-03-08] MEDS: Lactated Ringers 1,000 ML 999 ML IV (03:36)
[2022-03-08] MEDS: Albumin Human 25 % 50 ML 100 ML IV ×2 (04:01→04:33)
[2022-03-08 04:24] LABS: Reflex Lactate? Lactic Acid Added
[2022-03-08 05:04] LABS: MANUAL DIFF FLAG NO
[2022-03-08 05:18] LABS: Basophils Absolute Auto 0.1 X10*3/uL (0.0-0.2); Basophils Percent Auto 0.7 % (0-2); Eosinophils Absolute Auto 0.2 X10*3/uL (0.0-0.4); Eosinophils Percent Auto 1.3 % (0-4); Hematocrit 36.6 % (37.0-47.0); Hemoglobin 11.8 g/dl (12.0-16.0); Imm Gran Abs Auto 0.04 X10*3/uL (0.00-0.03); Imm Gran Pct Auto 0.3 % (0.0-0.4); Lymphocytes Absolute Auto 4.3 X10*3/uL (1.2-4.9); Lymphocytes Percent Auto 37.1 % (20-40); Mean Corpuscular HGB Conc 32.2 g/dl (31.0-35.0); Mean Corpuscular Hemoglobin 27.3 pg (27.0-33.0); Mean Corpuscular Volume 84.5 fL (80.0-98.0); Mean Platelet Volume 11.2 fL (9.4-12.3); Monocytes Absolute Auto 0.5 X10*3/uL (0.1-1.2); Monocytes Percent Auto 4.7 % (2-11); Neutrophils Absolute Auto 6.4 x10*3/uL (2.0-8.3); Neutrophils Percent Auto 55.9 % (45-73); Platelet Count 198 X10*3/uL (160-400); Red Blood Count 4.33 X10*6/uL (4.20-5.50); Red Cell Distribution Width 15.7 % (11.0-16.0); White Blood Count 11.5 X10*3/uL (4.8-10.8)
[2022-03-08 05:23] LABS: Anion Gap 15 (12-20); Blood Urea Nitrogen 23 mg/dL (9-16); Calcium 8.4 mg/dL (8.4-10.2); Carbon Dioxide 20 mmol/L (22-29); Chloride 110 mmol/L (96-108); Creatinine Clr Calc Pharmacy 68.4; Estimated Glomerular Filt Rate 52; Glucose Random 211 mg/dL (60-115); Magnesium 1.8 mg/dL (1.6-2.6); Phosphorus 2.7 mg/dL (2.7-4.5); Potassium 4.4 mmol/L (3.3-5.1); Sodium 141 mmol/L (135-145); ~Lactic Acid-LAB USE ONLY 2.5 mmol/L (0.5-2.0)
[2022-03-08] MEDS: Insulin Lispro 100 UNIT/ML 3 ML VIAL SUBCUT ×2 (05:27→11:57)
[2022-03-08] MEDS: Sodium Chloride 0.45 % 1,000 ML 100 ML IVCONT (06:28)
[2022-03-08 07:03] LABS: Reflex Lactate? 2 Y
[2022-03-08] MEDS: Azithromycin 500 MG TABLET PO (08:38)
--- NOTE | 2022-03-08 09:31 | PHA.MEDREC ---
Pharmacy Consult ? Medication Reconciliation Pharmacy has completed the medication reconciliation. Patient reported taking clonidine PRN. Patient reported that her ativan is TID but the prescription is only for daily. Patient has no idea what sulindac is. Reports she only takes Latuda 40 mg and not the 120 mg tablet. Fifi Sage, PharmD
--- NOTE | 2022-03-08 10:07 | P.EN_ITS ---
Event Note Date of Service: 03/08/22 Event Note: 49-year-old female patient with past medical history of sleep apnea, diabetes mellitus, hypertension, bipolar disorder, asthma, hypertension, peripheral neuropathy, seizures was brought in by EMS since family member called 911 reporting that patient had change in mental status was noted to be somnolent and lethargic, in the ER patient was noted to be hypotensive blood pressure 84/36 she was somnolent with slurred speech blood sugar was 272 lactic acid 2.9 and m agnesium of 1.2 urinalysis was positive with nitrates bacteria, urine toxicology was positive for fentanyl and no benzos COVID was negative patient was treated with 30 mL/kg IV fluid in magnesium was repleted despite fluid resuscitation patient blood pressure was low therefore she was admitted to intensive care unit she was treated with 1 dose of Narcan, received IV albumin patient blood pressure improved patient became more awake alert and hemodynamically stable was following commands therefore patient was transferred to medical floor. At present patient is awake alert offers no complaints of lightheadedness dizziness, no headache, denies urinary symptoms, complaining of decreased vision without her glasses, admits that she took fentanyl by accident General sitting comfortably on bed eating breakfast, slow to respond to questions Lungs clear to auscultation Heart regular Extremities no edema Assessment and plan Fentanyl overdose likely accidental, will consult care team at a.m. since patient has UTI and pneumonia clinically not ready for discharge Hypotension due to fentanyl overdose resolved with IV fluids and albumin, will DC IV fluids, DC Ashford catheter Lactic acidosis likely due to metformin and dehydration Hypo magnesemia repleted Pseudo hypocalcemia with corrected calcium 8.7 Metabolic encephalopathy due to drug overdose resolved Obesity due to excess calories Urinary tract infection continue IV ceftriaxone day 1 follow urine cultures Bipolar disorder patient on multiple medications including Cymbalta, prazosin, Lyrica, Latuda, Seroquel 200 mg at bedtime, Haldol 1 mg by mouth t.i.d. since patient more awake alert will resume home medications Pneumonia, chest x-ray showed left perihilar opacities continue IV ceftriaxone and IV azithromycin Hyperlipidemia will refer resume Lipitor Hypertension, will resume hydralazine, will hold lisinopril, follow blood pressure closely and resume medication as tolerated Diabetes mellitus type 2, hold metformin, blood sugar 211 will resume Januvia 100 mg at bedtime, add insulin sliding scale and continue diabetic diet DVT prophylaxis with Lovenox Time Spent With Patient Time: Total time managing care of this patient today ____ minutes.
--- NOTE | 2022-03-08 10:29 | MHC.CM.PN ---
Met with pt to discuss d/c planning needs: pt resides w/REGISTRATION REPRESENTATIVE Jaxson Walton who assists pt w/care needs. She also has RN and community services including transportation provided by her payor, [facility]. Pt uses a walker on occassion. Goals for d/c are to return to home w/existing supports. IMM/HCP in chart: Miguel vax x3. BLS transport to home. CM to follow for changes in d/c plan
[2022-03-08 11:37] LABS: Glucose, Whole Blood 202 mg/dL (60-115)
--- NOTE | 2022-03-08 13:01 | P.DS_ITS ---
DS: Providers Provider Date of Service: 03/08/22 Date of admission: 03/08/22 01:46 Primary care physician: Bri Milligan CNP Consults: 03/08/22 12:46 Consult to Care Team Stat Comment: Reason for consultation: fentanyl overdose DS: Summary Hospital Course Hospital Course: Chief Complaint: OD, Sepsis, UTI HPI: ?49-year-old morbidly obese female with underlying history of practice sleep apnea, acute kidney injury, hyponatremia, rhabdomyolysis, UTI, prior ove rdoses, asthma, bipolar, chronic pain, diabetes, hypertension, IBS, peripheral neuropathy, seizures.? Patient had presented to the emergency room, who is well- known due to recurrent ventral overdoses.? Presented barely awake however denying the use of fentanyl and stating that she 2 clonazepam and lorazepam. ?Family members called 911 reporting the patient had a sudden mental status change and was somnolent and lethargic, they had taking her to the bathroom but they were unable to get her up. ?EMS had found the patient sitting in the bathroom, lethargic but denying any other complaints. ? In the ER, the patient was hypotensive with lowest blood pressure of 84/36 but otherwise normal vital signs, somnolent and with slurred speech. ?Her workup did not reveal a white count H&H of 10.9 and 32.8 respectively, platelets 237 electrolytes were unremarkable however her BUN to creatinine ratio was greater than 20, blood sugar of 272, lactic acid 2.9 and magnesium of 1.2.? Urinalysis was positive for a UTI. ?In addition her urine tested positive for fentanyl but no benzos detected.? COVID negative. ?Patient was given 30 mL/kilo of IV fluids and magnesium was repleted, started on Rocephin.? ? Despite of fluid resuscitation patient's blood pressure continued to be low and she continues to be quite somnolent however no Narcan had been administered. There my evaluation the patient is minimally arousable with verbal stimuli, does wake up with sternal rub, unable to follow commands, speaking with slurred speech. Hospital course Patient admitted initially to intensive care unit with a diagnosis of Fentanyl overdose likely accidental, as per patient she got fentanyl from the street, patient treated with IV fluids Narcan she became more awake alert And insisting to leave against medical advice, care team consult obtained but patient is insisting on leaving, patient is aware of risk of somnolence respiratory failure in bed if continues to use illicit drugs along with her multiple antipsychotic medications, patient also diagnosed to have UTI and pneumonia therefore being discharged home on Ceftin 500 b.i.d. for total 5 days and azithromycin QT is within normal range, call patient roommate Jaxson and left message Hypotension due to fentanyl overdose resolved with IV fluids and albumin. Lactic acidosis likely due to metformin and dehydration resolved Hypomagnesemia repleted Pseudo hypocalcemia with corrected calcium 8.7 Metabolic encephalopathy due to drug overdose resolved Obesity due? to excess calories. Urinary tract infection urine cultures are pending Bipolar disorder patient on multiple medications including Cymbalta, prazosin, Lyrica, Latuda, Seroquel 200 mg at bedtime, Haldol 1 mg by mouth t.i.d. since patient more awake alert rec. To continue home medication. Pneumonia, chest x-ray showed left perihilar opacities treated with IV ceftriaxone and IV azithromycin, now being discharged on total 5 days of antibiotic Hyperlipidemia resume Lipitor Hypertension, recommend resume home medication Diabetes mellitus type 2, continue metformin, and Januvia blood sugar 211 recommend to follow diabetic diet Time Spent with Patient Time attestation: Total time managing care of this patient today ____ minutes. Discharge coordination time: Greater than 30 minutes Quality: Safe Use of Opioids Does Pt have an Active Cancer Diagnosis on the Problem List?: No Quality: Stroke Does the patient have a stroke diagnosis?: No Physical Exam Vital Signs: Vital Signs: Last Vital Signs Temp 96.4 F L 03/08/22 08:00 Pulse 80 03/08/22 12:00 Resp 22 H 03/08/22 12:00 BP 149/65 H 03/08/22 12:00 Pulse Ox 99 03/08/22 08:00 O2 Del Method 03/08/22 08:00 BMI result Body Mass Index 32.5 Const: Other: General awake alert x3 resting comfortably in no acute distress. Puffy eyelids Neck is supple no JVD. CVS regular rate rhythm, Respiratory lungs clear to auscultation, no respiratory distress, no wheeze, no rhonchi. Gastrointestinal abdomen soft, nontender, bowel sounds audible, no guarding , no rigidity. Extremities no edema. Neuro nonfocal moving all 4 extremity speech clear. Skin no rash DS: Data Data Completed and Pending Completed studies during hospitalization [Text1]: Procedures Detoxification Services for Substance Abuse Treatment (07/15/21) Introduction of Vasopressor into Peripheral Vein, Percutaneous Approach (07/15/21) Labs on day of discharge: Laboratory Results - last 24 hr 03/07/22 03/07/22 03/07/22 20:04 23:20 23:20 WBC 10.4 RBC 3.93 L Hgb 10.9 L Hct 32.8 L MCV 83.5 MCH 27.7 MCHC 33.2 RDW 15.7 Plt Count 237 MPV 11.0 Immature Gran % (Auto) 0.4 Neut % (Auto) 64.1 Lymph % (Auto) 29.0 Millard % (Auto) 5.1 Eos % (Auto) 0.8 Baso % (Auto) 0.6 Lymph # (Auto) 3.0 Millard # (Auto) 0.5 Eos # (Auto) 0.1 Baso # (Auto) 0.1 Abs Immat Gran (auto) 0.04 H Absolute Neuts (auto) 6.7 Absolute Nucleated RBC 0.000 Nucleated RBC % (auto) 0.0 VBG pH VBG pCO2 VBG pO2 VBG HCO3 VBG O2 Saturation VBG Base Excess Sodium 140 Potassium 4.4 Chloride 108 Carbon Dioxide 22 Anion Gap 14 BUN 26 H Creatinine 1.16 Estim Creat Clear Calc 63.8 Estimated GFR 48 POC Glucose 285 H Random Glucose 272 H Lactic Acid Lactic Acid F/U @ 2Hr Lactic Acid F/U @ 4Hr Calcium 8.3 L D Phosphorus Magnesium 1.2 L* Total Bilirubin 0.3 Direct Bilirubin < 0.2 AST 11 ALT 11 Alkaline Phosphatase 85 Troponin I High Sens Total Protein 5.7 L Albumin 3.4 L Urine Color Urine Appearance Urine pH Ur Specific [place] Urine Protein Urine Glucose (UA) Urine Ketones Urine Blood Urine Nitrite Ur Leukocyte Esterase Urine RBC Urine WBC Ur Squamous Epith Cells Urine Bacteria Hyaline Casts Urine Opiates Screen Urine Fentanyl Screen Ur Barbiturates Screen Ur Phencyclidine Scrn Ur Amphetamines Screen U Benzodiazepines Scrn Urine Cocaine Screen U Marijuana (THC) Screen Ethyl Alcohol COVID-19 (MARLYS) COVID-19 Clin Com 03/07/22 03/07/22 03/07/22 23:20 23:20 23:20 WBC RBC Hgb Hct MCV MCH MCHC RDW Plt Count MPV Immature Gran % (Auto) Neut % (Auto) Lymph % (Auto) Millard % (Auto) Eos % (Auto) Baso % (Auto) Lymph # (Auto) Millard # (Auto) Eos # (Auto) Baso # (Auto) Abs Immat Gran (auto) Absolute Neuts (auto) Absolute Nucleated RBC Nucleated RBC % (auto) VBG pH VBG pCO2 VBG pO2 VBG HCO3 VBG O2 Saturation VBG Base Excess Sodium Potassium Chloride Carbon Dioxide Anion Gap BUN Creatinine Estim Creat Clear Calc Estimated GFR POC Glucose Random Glucose Lactic Acid 2.9 H* Lactic Acid F/U @ 2Hr Lactic Acid F/U @ 4Hr Calcium Phosphorus Magnesium Total Bilirubin Direct Bilirubin AST ALT Alkaline Phosphatase Troponin I High Sens 5.5 Total Protein Albumin Urine Color Urine Appearance Urine pH Ur Specific [place] Urine Protein Urine Glucose (UA) Urine Ketones Urine Blood Urine Nitrite Ur Leukocyte Esterase Urine RBC Urine WBC Ur Squamous Epith Cells Urine Bacteria Hyaline Casts Urine Opiates Screen Urine Fentanyl Screen Ur Barbiturates Screen Ur Phencyclidine Scrn Ur Amphetamines Screen U Benzodiazepines Scrn Urine Cocaine Screen U Marijuana (THC) Screen Ethyl Alcohol COVID-19 (MARLYS) Negative COVID-19 Clin Com See Note 03/07/22 03/07/22 03/07/22 23:20 23:28 23:28 WBC RBC Hgb Hct MCV MCH MCHC RDW Plt Count MPV Immature Gran % (Auto) Neut % (Auto) Lymph % (Auto) Millard % (Auto) Eos % (Auto) Baso % (Auto) Lymph # (Auto) Millard # (Auto) Eos # (Auto) Baso # (Auto) Abs Immat Gran (auto) Absolute Neuts (auto) Absolute Nucleated RBC Nucleated RBC % (auto) VBG pH VBG pCO2 VBG pO2 VBG HCO3 VBG O2 Saturation VBG Base Excess Sodium Potassium Chloride Carbon Dioxide Anion Gap BUN Creatinine Estim Creat Clear Calc Estimated GFR POC Glucose Random Glucose Lactic Acid Lactic Acid F/U @ 2Hr Lactic Acid F/U @ 4Hr Calcium Phosphorus Magnesium Total Bilirubin Direct Bilirubin AST ALT Alkaline Phosphatase Troponin I High Sens Total Protein Albumin Urine Color Yellow Urine Appearance Clear Urine pH 5.5 Ur Specific [place] 1.010 Urine Protein 30 (1+) H Urine Glucose (UA) 100 H Urine Ketones Negative Urine Blood Negative Urine Nitrite Positive H Ur Leukocyte Esterase Small (1+) H Urine RBC 0-2 Urine WBC 21-50 H Ur Squamous Epith Cells 0-2 Urine Bacteria 4+ Hyaline Casts 0-2 Urine Opiates Screen Not Detected Urine Fentanyl Screen POSITIVE H Ur Barbiturates Screen Not Detected Ur Phencyclidine Scrn Not Detected Ur Amphetamines Screen Not Detected U Benzodiazepines Scrn Not Detected Urine Cocaine Screen Not Detected U Marijuana (THC) Screen Not Detected Ethyl Alcohol < 10 COVID-19 (MARLYS) COVID-19 Clin Com 03/08/22 03/08/22 03/08/22 02:20 02:37 04:47 WBC 11.5 H RBC 4.33 Hgb 11.8 L Hct 36.6 L MCV 84.5 MCH 27.3 MCHC 32.2 RDW 15.7 Plt Count 198 MPV 11.2 Immature Gran % (Auto) 0.3 Neut % (Auto) 55.9 Lymph % (Auto) 37.1 Millard % (Auto) 4.7 Eos % (Auto) 1.3 Baso % (Auto) 0.7 Lymph # (Auto) 4.3 Millard # (Auto) 0.5 Eos # (Auto) 0.2 Baso # (Auto) 0.1 Abs Immat Gran (auto) 0.04 H Absolute Neuts (auto) 6.4 Absolute Nucleated RBC 0.000 Nucleated RBC % (auto) 0.0 VBG pH 7.35 VBG pCO2 34 VBG pO2 91 VBG HCO3 19 L VBG O2 Saturation 98.0 VBG Base Excess -5.1 Sodium Potassium Chloride Carbon Dioxide Anion Gap BUN Creatinine Estim Creat Clear Calc Estimated GFR POC Glucose Random Glucose Lactic Acid 2.1 H* Lactic Acid F/U @ 2Hr Lactic Acid F/U @ 4Hr Calcium Phosphorus Magnesium Total Bilirubin Direct Bilirubin AST ALT Alkaline Phosphatase Troponin I High Sens Total Protein Albumin Urine Color Urine Appearance Urine pH Ur Specific [place] Urine Protein Urine Glucose (UA) Urine Ketones Urine Blood Urine Nitrite Ur Leukocyte Esterase Urine RBC Urine WBC Ur Squamous Epith Cells Urine Bacteria Hyaline Casts Urine Opiates Screen Urine Fentanyl Screen Ur Barbiturates Screen Ur Phencyclidine Scrn Ur Amphetamines Screen U Benzodiazepines Scrn Urine Cocaine Screen U Marijuana (THC) Screen Ethyl Alcohol COVID-19 (MARLYS) COVID-19 Clin Com 03/08/22 03/08/22 03/08/22 04:47 04:47 07:25 WBC RBC Hgb Hct MCV MCH MCHC RDW Plt Count MPV Immature Gran % (Auto) Neut % (Auto) Lymph % (Auto) Mill[place] % (Auto) Eos % (Auto) Baso % (Auto) Lymph # (Auto) Millard # (Auto) Eos # (Auto) Baso # (Auto) Abs Immat Gran (auto) Absolute Neuts (auto) Absolute Nucleated RBC Nucleated RBC % (auto) VBG pH VBG pCO2 VBG pO2 VBG HCO3 VBG O2 Saturation VBG Base Excess Sodium 141 Potassium 4.4 Chloride 110 H Carbon Dioxide 20 L Anion Gap 15 BUN 23 H Creatinine 1.09 Estim Creat Clear Calc 68.4 Estimated GFR 52 POC Glucose Random Glucose 211 H Lactic Acid Lactic Acid F/U @ 2Hr 2.5 H* Lactic Acid F/U @ 4Hr 2.0 Calcium 8.4 Phosphorus 2.7 Magnesium 1.8 Total Bilirubin Direct Bilirubin AST ALT Alkaline Phosphatase Troponin I High Sens Total Protein Albumin Urine Color Urine Appearance Urine pH Ur Specific [place] Urine Protein Urine Glucose (UA) Urine Ketones Urine Blood Urine Nitrite Ur Leukocyte Esterase Urine RBC Urine WBC Ur Squamous Epith Cells Urine Bacteria Hyaline Casts Urine Opiates Screen Urine Fentanyl Screen Ur Barbiturates Screen Ur Phencyclidine Scrn Ur Amphetamines Screen U Benzodiazepines Scrn Urine Cocaine Screen U Marijuana (THC) Screen Ethyl Alcohol COVID-19 (MARLYS) COVID-19 Clin Com 03/08/22 11:34 WBC RBC Hgb Hct MCV MCH MCHC RDW Plt Count MPV Immature Gran % (Auto) Neut % (Auto) Lymph % (Auto) [place] % (Auto) Eos % (Auto) Baso % (Auto) Lymph # (Auto) [place] # (Auto) Eos # (Auto) Baso # (Auto) Abs Immat Gran (auto) Absolute Neuts (auto) Absolute Nucleated RBC Nucleated RBC % (auto) VBG pH VBG pCO2 VBG pO2 VBG HCO3 VBG O2 Saturation VBG Base Excess Sodium Potassium Chloride Carbon Dioxide Anion Gap BUN Creatinine Estim Creat Clear Calc Estimated GFR POC Glucose 202 H Random Glucose Lactic Acid Lactic Acid F/U @ 2Hr Lactic Acid F/U @ 4Hr Calcium Phosphorus Magnesium Total Bilirubin Direct Bilirubin AST ALT Alkaline Phosphatase Troponin I High Sens Total Protein Albumin Urine Color Urine Appearance Urine pH Ur Specific [place] Urine Protein Urine Glucose (UA) Urine Ketones Urine Blood Urine Nitrite Ur Leukocyte Esterase Urine RBC Urine WBC Ur Squamous Epith Cells Urine Bacteria Hyaline Casts Urine Opiates Screen Urine Fentanyl Screen Ur Barbiturates Screen Ur Phencyclidine Scrn Ur Amphetamines Screen U Benzodiazepines Scrn Urine Cocaine Screen U Marijuana (THC) Screen Ethyl Alcohol COVID-19 (MARLYS) COVID-19 Clin Com Discharge Plan Discharge Anticipated Discharge Date/Time: 03/08/22 13:01 Patient Disposition: Left Against Medical Advice Discharge Diagnosis: Accidental fentanyl overdose UTI Acute toxic metabolic encephalopathy Pneumonia Referrals: Bri Milligan CNP [Primary Care Provider] - 1 Week Discharge Medications: New azithromycin 500 mg Tablet 500 mg PO Q24H Qty: 4 0RF cefuroxime axetil 500 mg tablet 500 mg PO Q12H Qty: 8 0RF Continued acetaminophen [Tylenol Extra Strength] 500 mg tablet 500 mg PO Q6H PRN (Reason: fever or pain) Qty: 14 0RF lorazepam 0.5 mg Tablet 0.5 mg PO DAILY metformin 1,000 mg tablet 1,000 mg PO BID multivitamin Tablet 1 tab PO DAILY atorvastatin 20 mg tablet 20 mg PO DAILY clonazepam 0.5 mg tablet 0.5 mg PO DAILY PRN (Reason: Anxiety) lisinopril 30 mg tablet 30 mg PO DAILY duloxetine 30 mg capsule,delayed release(DR/EC) 30 mg PO BID Januvia 100 mg tablet 100 tab PO BEDTIME Latuda 40 mg Tablet 40 mg PO DAILY@1800 Qty: 30 0RF quetiapine 50 mg Tablet 50 mg PO BID PRN (Reason: agitation, anxiety) Qty: 120 0RF quetiapine 200 mg tablet 1 tab PO BEDTIME hydralazine 25 mg tablet 1 tab PO TID clonidine HCl 0.2 mg tablet 1 tab PO TID PRN (Reason: Anxiety) pregabalin 100 mg capsule 1 cap PO TID prazosin 1 mg capsule 1 mg PO BEDTIME Protocol: Hold for SBP< HOLD for SBP < : 90 haloperidol 1 mg tablet 1 mg PO TID Rx Instructions: Take for 15 days and follow up with your psychiatrist to further adjust medications Discharge Orders: Discharge Order (Routine); Ordered 03/08/22 Ordered By: Robert Mccray Diet: Diabetic diet Activity on Discharge: As tolerated Care Plan Goals: Fentanyl overdose, patient awake alert to place person and time refusing to stay in hospital for continued treatment of UTI pneumonia and follow-up with care team Strongly recommend to abstain from illicit drug use since patient on multiple antipsychotic medication that can interfere with alertness and cause confusion somnolence And even patient shows understanding but still adamant to leave hospital common refused to stay for care team evaluation Will discharge patient on Ceftin and azithromycin for 4 more days to cover pneumonia and UTI Health Concerns: Continue all other home medication hold Seroquel for somnolence strongly recommend complete abstinence from illicit drugs Plan of Treatment: Outpatient follow-up with primary care physician recommend to call for appointment and also follow-up with Psychiatry Assessment: As above
--- NOTE | 2022-03-08 14:27 | MHC.CM.PN ---
to d/c pt at pt's request although MD feels pt should stay for continued care and treatment. Discussed d/c w/pt who stated she wanted to get the hell out! citing PTSD and need to return to home. Pt pulling at EKG leads, agitated and visibly upset. entered d/c order. [facility] transportation arranged w/Theodore today at 2:45pm. Multiple calls and messages left for pt's live in [facility] informing him of pt return to apartment. Message left for [facility] in addition to inform them of pt's d/c. Confirmed w/S Jamil YOO (who transported pt to [facility]) that she arrived with no belongings or clothes. When asked about house keys, pt states that Jaxson is home and just not answering the phone. He doesn't have a car, where do you think he is?
--- NOTE | 2022-03-08 14:41 | PC.NURSE ---
Patient requesting to leave AMA - patient awake and alert, A&O x3, ate both breakfast and lunch. MD notified and at bedside. VSS. Patient educated on consequences of leave AMA by this RN and MD. Discharge instructions given to patient along with prescriptions which were sent electronically to pharmacy. Patient informed to come back to the ED with any new symptoms. Patient leaving via ambulance and states family will be at ther house to let her in. Both IV and monitor removed.
== END 2022-03-08 14:43 | disposition left against medical advice (07) | DRG 917 ==
LOC: HO.ED 03-08 01:39 → HO.EDOVER 03-08 01:54 → HO.ICU 03-08 02:27
PROVIDERS: Admitting Provider Physician Assistant Medical; Emergency Provider Emergency Medicine; PCP Nurse Practitioner Family; Visit Provider Hospitalist
DX: T40.411A Poisoning by fentanyl or fentanyl analogs, accidental (unintentional), initial encounter (principal); G92.8 Other toxic encephalopathy; J18.9 Pneumonia, unspecified organism; F11.20 Opioid dependence, uncomplicated; E87.20 Acidosis, unspecified; N17.9 Acute kidney failure, unspecified; N39.0 Urinary tract infection, site not specified; F31.9 Bipolar disorder, unspecified; E11.42 Type 2 diabetes mellitus with diabetic polyneuropathy; E83.42 Hypomagnesemia; D64.9 Anemia, unspecified; F19.10 Other psychoactive substance abuse, uncomplicated; E66.01 Morbid (severe) obesity due to excess calories; I95.9 Hypotension, unspecified; I10 Essential (primary) hypertension; E86.0 Dehydration; Z68.32 Body mass index [BMI] 32.0-32.9, adult; G89.29 Other chronic pain; Z20.822 Contact with and (suspected) exposure to COVID-19; Z88.2 Allergy status to sulfonamides; Z88.5 Allergy status to narcotic agent; Z79.899 Other long term (current) drug therapy
CPT/HCPCS: 36415; 70450; 71045; 80048; 80076; 80307; 81001; 82077; 82803; 82947; 83605; 83735; 84100; 84484; 85025; 87040; 87086; 87088; 87186; 87635; 99285; C1758; J0696; J1650; J3475; P9047

== ENCOUNTER 2022-03-13 16:06 | Inpatient (IN) | payer OTHER, SELFPAY ==
--- NOTE | ~2022-03-13 | MR_ITS ---
EXAMINATION: MR BRAIN WITHOUT CONTRAST CLINICAL INFORMATION: Question stroke. COMPARISON: Head CT 03/13/2022. TECHNIQUE: Multiplanar, multisequence imaging of the brain was performed without intravenous contrast. FINDINGS: There is no acute infarction, hemorrhage, mass, or extra-axial fluid collection. A small area of subacute infarction within the right occipital lobe is seen on series 4 image with evolving encephalomalacic and gliotic change. The ventricles are normal in size without hydrocephalus. A few minimal nonspecific foci of T2/FLAIR hyperintensity is seen within the cerebral white matter and rangel. The major arterial flow voids are preserved at the skull base. The orbital contents appear normal. The extracranial structures are within normal limits. MR/MR head/brain wo con IMPRESSION: No acute intracranial abnormality. Small area of subacute infarction in the right occipital lobe.
--- NOTE | ~2022-03-13 | CT_ITS ---
EXAMINATION: CT ABDOMEN AND PELVIS WITHOUT CONTRAST CLINICAL INFORMATION: Fall, abdominal pain COMPARISON: CT 01/21/2022 TECHNIQUE: Multidetector volumetric imaging was performed from the superior aspect of the liver through the pubic symphysis. Sagittal and coronal reformatted images were obtained on the technologist's workstation. This CT examination was performed using dose optimization techniques as appropriate, variously including the following: *Automated exposure control *Adjustment of mA and/or kV according to patient size (this includes techniques or standardized protocols for targeted exams where dose is matched to indication/reason for exam; i.e. extremities or head) *Use of iterative reconstruction technique DLP: 888 mGy-cm FINDINGS: LUNG BASES: Hazy bibasilar opacities, probably atelectasis. No dense consolidation. No effusion. LIVER, GALLBLADDER, AND BILIARY TREE: No focal liver lesions. No biliary duct dilatation. Gallbladder appears unremarkable. No gallstones or inflammatory changes seen. PANCREAS: Unremarkable. No acute inflammatory changes. SPLEEN: Unremarkable. ADRENAL GLANDS: Unremarkable. KIDNEYS AND URETERS: Right renal cortical thinning/defect, unchanged from previous, . Relative hypertrophy of the left kidney as compared to the right side, similar to previous. 2 mm right lower pole renal calculus. No ureteral calculi. No hydronephrosis.. Mild left perinephric stranding. BLADDER: Unremarkable. GASTROINTESTINAL TRACT: Stomach is partially distended, grossly unremarkable. No dilated small or large bowel loops. No wall thickening along the course of the small or large bowel. Moderate stool in the large colon. Surgical suture lines in the cecum, probably related to appendectomy.. ABDOMINAL WALL: No significant hernia is appreciated. LYMPH NODES: No lymphadenopathy. VASCULAR: Normal caliber aorta. PELVIC VISCERA: Unremarkable. OSSEOUS STRUCTURES: Posterior spinal fusion hardware, spanning L1-S1. Hardware is intact. Multilevel disc degenerative changes present in this region. Stable mild compression of L3 vertebral body. There is multilevel degenerative changes in the thoracolumbar spine otherwise. No acute vertebral compression deformity is seen. No acute fractures otherwise identified.. CT/CT abdomen pelvis wo IV con IMPRESSION: 1. No CT evidence of acute intra-abdominal findings. Cause of the patient's pain has not been determined by CT. 2. Mild bibasilar atelectasis. 3. Postsurgical changes spine, multilevel degenerative changes. Findings appear similar as compared to the prior CT of 01/21/2022. No acute findings or significant interval changes identified 4. Additional chronic findings as detailed above, similar to previous. Fleischner guidelines were followed.
--- NOTE | ~2022-03-13 | CT_ITS ---
EXAMINATION: CT HEAD WITHOUT CONTRAST CLINICAL INFORMATION: Altered mental status. COMPARISON: CT head 03/07/2022. TECHNIQUE: Contiguous axial imaging was performed from the skull base to vertex without intravenous administration of contrast. This CT examination was performed using dose optimization techniques as appropriate, variously including the following: *Automated exposure control *Adjustment of mA and/or kV according to patient size (this includes techniques or standardized protocols for targeted exams where dose is matched to indication/reason for exam; i.e. extremities or head) *Use of iterative reconstruction technique DLP: 871 mGy-cm FINDINGS: Stable focal hypodensities in the right occipital lobe (2:26), possibly representing an infarction, similar to 03/07/2022. There is no evidence of acute intracranial hemorrhage or edematous territorial infarction. A few foci of hypoattenuation in the periventricular and deep white matter are consistent with mild microangiopathy. [place]-white matter differentiation is preserved. Proportional prominence of the ventricles and sulcal spaces. No evidence for obstructive hydrocephalus. No abnormal mass effect or midline shift. No extra-axial fluid collections. No acute soft tissue or osseous abnormalities. The mastoid air cells and paranasal sinuses are clear. CT/CT head/brain wo IV con IMPRESSION: Unchanged focal hypodensities in the right occipital lobe suggestive of an evolving infarction. If clinically deemed appropriate, further characterization could be obtained with an MR of the brain. No intracranial hemorrhage or significant mass effect.
--- NOTE | ~2022-03-13 | CT_ITS ---
EXAMINATION: CT ANGIOGRAM HEAD CT ANGIOGRAM NECK CLINICAL INFORMATION: Cerebrovascular accident. COMPARISON: Brain MRI from 03/13/2022. CT head from 03/13/2022. TECHNIQUE: Initial noncontrast sheet metal lay out worker imaging of the head and neck was performed. Noncontrast head CT was also performed. Test bolus sequences followed by intravenous administration 70 mL of Omnipaque 350. Helical imaging was performed in the axial plane from the aortic arch to the skull vertex. Delayed postcontrast imaging of the head was also performed. The data was processed at the blood bank laboratory technologist's workstation for generation of MIP sequences. Angled MIPs and volume rendered reformatted images were also generated at an offline 3D workstation. Stenoses are assessed in accordance with NASCET criteria unless otherwise indicated. This CT examination was performed using dose optimization techniques as appropriate, variously including the following: *Automated exposure control. *Adjustment of mA and/or kV according to patient size (this includes techniques or standardized protocols for targeted exams where dose is matched to indication/reason for exam; i.e. extremities or head). *Use of iterative reconstruction technique. DLP: 2911 mGy-cm FINDINGS: CT Head: Small region of lost turner-white matter differentiation within the right occipital lobe correlating with findings on recent brain MRI. There is no evidence of hemorrhagic transformation. No additional parenchymal attenuation abnormalities. No additional loss of turner-white matter differentiation. The ventricles are normal in size and configuration. No evidence for obstructive hydrocephalus. No abnormal mass effect or midline shift. No extra-axial fluid collections. No pathologic intra-axial enhancement. No acute soft tissue or osseous abnormalities. Mild mucosal thickening of the paranasal sinuses. The mastoid air cells and middle ear cavities are clear. Extensive multifocal odontogenic enamel erosions and periapical lucencies. CT Neck: The thyroid gland and remaining cervical soft tissues are within normal limits. Moderate degenerative disc disease from C5-T1. CT Upper Chest: The visualized lung apices and upper mediastinum are within normal limits. Neck CTA: Aortic Arch: Normal contour and caliber. 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 Left vertebral artery also arises directly from the arch between the left common carotid and left subclavian arteries. Great Vessel Origins: No significant stenosis of the branch origins. Right Common Carotid Artery: No focal stenosis or occlusion. Cervical Right Internal Carotid Artery: Mild calcific atherosclerotic disease of the carotid bulb and proximal internal carotid artery without flow-limiting stenosis. Retropharyngeal course of the right carotid artery. Left Common Carotid Artery: No focal stenosis or occlusion. Cervical Left Internal Carotid Artery: Mild atherosclerotic disease of the carotid bulb and proximal internal carotid artery without flow-limiting stenosis. Cervical Right Vertebral Artery: Co-dominant. No focal stenosis or occlusion. Cervical Left Vertebral Artery: Co-dominant. No focal stenosis or occlusion. Brain CTA: Intracranial Internal Carotid Arteries: Mild calcific atherosclerotic disease of the intracranial internal carotid arteries without occlusion or flow-limiting stenosis. Right Anterior Cerebral Artery: Normal A1 segment. Normal opacification of the distal BABAK segments. Left Anterior Cerebral Artery: Normal A1 segment. Normal opacification of the distal BABAK segments. Anterior Communicating Artery: Normal. Right Middle Cerebral Artery: Normal M1 segment of the MCA without focal stenosis or occlusion. Normal arborization of the distal segments. Left Middle Cerebral Artery: Normal M1 segment of the MCA without focal stenosis or occlusion. Normal arborization of the distal segments. Right Vertebral Artery: Normal V4 segment. The posterior inferior cerebellar artery is not well opacified; however, there is no CT evidence of acute occlusion. Left Vertebral Artery: Normal V4 segment. Normal opacification of the proximal segments of the posterior inferior cerebellar artery. Basilar Artery: Normal without focal stenosis or occlusion. Normal appearance of the proximal superior cerebellar arteries. Right Posterior Cerebral Artery: Normal P1 segment. Mildly diminished opacification of the distal MASTER PILOT segments. Left Posterior Cerebral Artery: The P1 segment is diminutive. origin of the MASTER PILOT with robust opacification of the posterior communicating artery. Normal opacification of the distal MASTER PILOT segments. Normal opacification of the superior sagittal, straight, transverse, and sigmoid sinuses. CT/CT angio head neck IMPRESSION: 1. Evolving small acute infarct within the right occipital lobe correlating with findings on recent brain MRI. No evidence of hemorrhagic transformation. 2. CTA of the head and neck without proximal occlusion or flow-limiting stenosis. Mildly diminished opacification of the distal right-sided MASTER PILOT segments. 3. Extensive odontogenic disease.
[2022-03-13 16:16] VITALS: BP 102/73; BP 128/70; PULSE 75; PULSE 76; RESP 18; TEMP 37.1; O2SAT 97; O2SAT 98; BMI 32.3
--- NOTE | 2022-03-13 16:17 | ECG_ITS ---
Test Reason : ALTERED MENTAL Blood Pressure : / mmHG Vent. Rate : 068 BPM Atrial Rate : 068 BPM P-R Int : 182 ms QRS Dur : 090 ms QT Int : 406 ms P-R-T Axes : 022 007 007 degrees QTc Int : 431 ms Normal sinus rhythm Normal ECG When compared with ECG of 28-JAN-2022 08:41, Criteria for Anteroseptal infarct are no longer Present Referred By: Jordon Dave Electronically Signed By:LOUISE URRUTIA
--- NOTE | 2022-03-13 16:26 | ED_ITS ---
HPI - General Adult General Chief complaint: General Medical Stated complaint: Confusion per EMS Time Seen by Provider: 03/13/22 16:17 Source: patient, EMS and other (Nadeen patients friend ) Mode of arrival: EMS Limitations: altered mental status History of Present Illness HPI narrative: This is a 57-year-old female history of bipolar disorder, obesity, polysubstance abuse with history of overdoses, sleep apnea presenting to the emergency department with altered mental status, patient arrives to the apartment states she is fine, per EMS patient was confused when they arrived to her place of residence, patient's roommate/friend called EMS for patient being altered and confused. Upon arrival patient only alert and oriented to person however confused on time, place and situation. No reported trauma. Patient ambulating with a shuffling gait which per EMS report appears to be patient's baseline. Patient not following commands unable to obtain NIH stroke scale however patient moving all extremities without difficulty, no noted focal neuro deficits. Related Data Home Medications Medication Instructions Recorded Confirmed lorazepam 0.5 mg tablet 0.5 mg PO DAILY 07/15/21 03/13/22 metformin 1,000 mg tablet 1,000 mg PO BIDWM 09/03/21 03/13/22 multivitamin 1 tab PO DAILY 09/03/21 03/13/22 atorvastatin 20 mg tablet 20 mg PO DAILY 01/15/22 03/13/22 duloxetine 30 mg capsule,delayed 30 mg PO BID 01/15/22 03/13/22 release sitagliptin phosphate 100 mg 100 tab PO BEDTIME 01/15/22 03/13/22 tablet (Januvia) clonidine HCl 0.2 mg tablet 1 tab PO TID PRN Anxiety 03/08/22 03/13/22 hydralazine 25 mg tablet 1 tab PO TID 03/08/22 03/13/22 prazosin 1 mg capsule 1 mg PO BEDTIME 03/08/22 03/13/22 pregabalin 100 mg capsule 1 cap PO TID 03/08/22 03/13/22 quetiapine 200 mg tablet 1 tab PO BEDTIME 03/08/22 03/13/22 Previous Rx's Medication Instructions Recorded lurasidone 40 mg tablet (Latuda) 40 mg PO DAILY@1800 #30 tabs 01/30/22 Allergies Allergy/AdvReac Type Severity Reaction Status Date / Time morphine [MORPHINE] Allergy Unknown RASH, vomit Verified 01/15/22 00:48 prednisone Allergy Unknown hives Verified 01/15/22 00:48 Sulfa (Sulfonamide Allergy Unknown UNKNOWN, Verified 01/15/22 00:48 Antibiotics) hives [SULFA (SULFONAMIDE ANTIBIOTICS)] Review of Systems Review of Systems: Yes Unobtainable due to mental status PMFSH Past Medical History Attestation statement: The following information was validated with the patient. Source: old records reviewed and nursing notes reviewed Medical History Asthma Bipolar disorder Chronic pain Diabetes Hypertension IBS (irritable bowel syndrome) Opioid use disorder Peripheral neuropathy Polysubstance abuse Seizure Surgical History History of appendectomy Social History Social History Household Members: Friend(s) Household Members Other:: roommate Housing: House Do you presently have visiting nurse or other home services: No Unable to assess alcohol history related to: Unable to respond Alcohol intake: unknown Patient Tobacco Use Status: Never used Tobacco Smoked in Last 30 Days: No Use of substances other than those prescribed or required for medical reasons: Unknown Substance Use Type: Painkillers Advance Directives: Yes Advance Directives on File: Yes Advance Directives Date on File: 09/03/21 service: No Current occupational status: disabled Physical Exam ED Vital Signs: Vital Signs - 24 hr 03/13/22 16:16 03/13/22 17:15 03/13/22 19:01 Temperature 98.7 F Pulse Rate 75 80 58 Respiratory Rate 18 16 26 H Blood Pressure 102/73 92/39 L Pulse Oximetry 97 97 99 Oxygen Delivery Method Room Air Room Air Room Air BMI result Body Mass Index 32.3 Vital signs stable Appearance: Patient alert. Oriented to person. Not time, place or situation.? No acute distress.?Unkempt smells like urine Head: Normocephalic, atraumatic, no step-offs or deformities Eyes: Pupils equal, round and reactive to light.? ENT: Pharynx normal.? Neck: Normal inspection.? Neck supple.? CVS: Normal heart rate and rhythm.? Pulses normal.? Respiratory: No respiratory distress.? Breath sounds normal.? Abdomen: Soft and nontender.? Skin: Skin warm and dry.? Normal skin color.? Normal skin turgor.? Extremities: No lower extremity edema.? No calf ttp. Global weakness. Back: Some bruising noted to back, no midline tenderness appears old Neuro: Patient alert, oriented only to person. No motor deficit.? No sensory deficit. Patient ambulating with shuffling gait. NIHSS unable to obtain- no focal neuro deficits. Course Reevaluation(s) Reevaluation #1: I did speak to Radiology to clarify CT of head, tells me these findings were present on patient's last scan on 03/07/2022 she clarifies that she thinks this is a subacute infarct. Slight delay in care due to waiting for radiology report/clarification. MRI ordered. I was able to speak to patient's friend Nadeen ( emergency contact) patient lives with who tells me that patient has been acting weird since earlier this morning/this afternoon he tells me around 12:21, he tells me recently she has be en experiencing increasing weakness and multiple falls at home and he is having trouble caring for her. She is unable to get up from the ground by herself. He tells me that she has been peeing all over the house and he cannot keep up with how much she is peeing tells me the P is foul-smelling and she has been using depends because of incontinence which is not normal for her. He tells me that her gait is unsteady at baseline and today she was asking questions that did not make much sense she kept asking for people within the house who were not there and appeared very confused to nadeen. He tells me she was seen here few days ago however she signed out against medical advice. Time: 18:23 Reevaluation #2: CBC with slight leukocytosis 12.7 and a normocytic anemia which appears to be around her baseline. Patient is noted to have an DANY 30 and 3.03, CPK was added and was noted to be elevated, DANY likely secondary to rhabdomyolysis. Patient's lactic acid 2.3, magnesium 1.4, IV magnesium ordered. Patient's UA with infection, patient was given ceftriaxone for coverage as well as fluids for hydration. CT of the head was concerning for a subacute infarct, MRI of the brain ordered and pending. Patient's troponin negative, EKG nonischemic unlikely ACS. Patient's urine toxicology positive for opiates, salicylates acetaminophen negative. CT of the abdomen and pelvis with no evidence of acute intraabdominal findings. Time: 20:47 Medications Administered Discontinued Medications Generic Name Dose Route Start Last Admin Trade Name Sheila PRN Reason Stop Dose Admin Ceftriaxone Sodium 1 gm/ 50 mls @ 100 mls/hr 03/13/22 17:57 03/13/22 23:01 Sodium Chloride IV 03/13/22 18:26 Infused ONCE ONE Infusion Magnesium Sulfate 2 gm in 50 mls @ 25 mls/hr 03/13/22 18:05 03/13/22 23:01 Magnesium Sulfate/H2o IV 03/13/22 20:04 25 mls/hr ONCE ONE Administration Sodium Chloride 1,000 mls @ 999 mls/hr 03/13/22 18:45 03/13/22 22:26 Ns IV 03/13/22 19:45 999 mls/hr .Q1H1M SARMAD Administration Sodium Chloride 1,000 mls @ 999 mls/hr 03/13/22 18:45 03/13/22 22:31 Ns IV 03/13/22 19:45 999 mls/hr .Q1H1M SARMAD Administration Sodium Chloride 1,000 mls @ 999 mls/hr 03/13/22 20:45 03/13/22 22:32 Ns IV 03/13/22 21:45 999 mls/hr .Q1H1M SARMAD Administration Medical Decision Making Medical Decision Making [facility] Narrative: 1620 This is a 49-year-old female presenting with altered mental status unknown period of time. Patient poor historian unknown last known well time will try to reach out to patient's family or emergency contact. Physical exam with global weakness, patient with shuffling gait, neuro nonfocal, patient is noted to have some bruising to her back. Patient somewhat following commands. She appears unkempt, smells like urine. Likely urinary tract infection. Other differentials include electrolyte abnormalities, substance abuse, rhabdo. Less likely stroke, posterior stroke, ACS And at this time labs, head CT, urine, salicylates, acetaminophen, urine toxicology. Will obtain blood cultures and lactic acid. Differential Diagnosis Differential Diagnoses: The differential diagnosis associated with the presentation includes Likely urinary tract infection. Other differentials include electrolyte abnormalities, substance abuse, rhabdo. Less likely stroke, posterior stroke, ACS Admission/Observation Consideration of admission/observation: Escalation of care including admission/observation considered Patient will likely require hospital admission Consult Healthcare Provider Management of the patient was discussed with: Hospitalist Lab Data MDM Lab Attestation statement: I reviewed the patient's lab results. Result Diagrams: 03/13/22 17:30 03/13/22 17:30 Labs: Lab Results 03/13/22 03/13/22 03/13/22 Range/Units 17:09 17:09 17:30 WBC 12.7 H (4.8-10.8) X10*3/uL RBC 3.74 L (4.20-5.50) X10*6/uL Hgb 10.4 L (12.0-16.0) g/dl Hct 31.5 L (37.0-47.0) % MCV 84.2 (80.0-98.0) fL MCH 27.8 (27.0-33.0) pg MCHC 33.0 (31.0-35.0) g/dl RDW 16.6 H (11.0-16.0) % Plt Count 277 D (160-400) X10*3/uL MPV 11.4 (9.4-12.3) fL Immature Gran % (Auto) 0.3 (0.0-0.4) % Neut % (Auto) 69.4 (45-73) % Lymph % (Auto) 23.7 (20-40) % [place] % (Auto) 4.8 (2-11) % Eos % (Auto) 1.4 (0-4) % Baso % (Auto) 0.4 (0-2) % Lymph # (Auto) 3.0 (1.2-4.9) X10*3/uL [place] # (Auto) 0.6 (0.1-1.2) X10*3/uL Eos # (Auto) 0.2 (0.0-0.4) X10*3/uL Baso # (Auto) 0.1 (0.0-0.2) X10*3/uL Abs Immat Gran (auto) 0.04 H (0.00-0.03) X10*3/uL Absolute Neuts (auto) 8.8 H (2.0-8.3) x10*3/uL Absolute Nucleated RBC 0.000 (0.0-0.012) X10*3/uL Nucleated RBC % (auto) 0.0 (0.0-0.2) /100WBC Sodium (135-145) mmol/L Potassium (3.3-5.1) mmol/L Chloride (96-108) mmol/L Carbon Dioxide (22-29) mmol/L Anion Gap (12-20) BUN (9-16) mg/dL Creatinine (0.5-1.4) mg/dL Estim Creat Clear Calc Estimated GFR Random Glucose (60-115) mg/dL Lactic Acid (0.5-2.0) mmol/L Lactic Acid F/U @ 2Hr (0.5-2.0) mmol/L Calcium (8.4-10.2) mg/dL Magnesium (1.6-2.6) mg/dL Total Bilirubin (0.0-1.0) mg/dL AST (5-31) U/L ALT (0-31) U/L Alkaline Phosphatase (39-117) U/L Total Creatine Kinase (26-140) U/L Troponin I High Sens (<3.5-17.0) ng/L Total Protein (6.5-8.0) g/dL Albumin (3.5-5.0) g/dL Urine Color Yellow Urine Appearance Turbid Urine pH 5.5 (5.0-9.0) Ur Specific [place] 1.015 (1.005-1.025) Urine Protein 100 (2+) H (Neg-Trace) mg/dL Urine Glucose (UA) 100 H (Negative) mg/dL Urine Ketones Negative (Negative) mg/dL Urine Blood Small (1+) H (Negative) Urine Nitrite Negative (Negative) Ur Leukocyte Esterase Large (3+) H (Negative) Urine RBC 11-20 H (0-2) /HPF Urine WBC >50 H (0-5) /HPF Ur Squamous Epith Cells >20 (0-2) /HPF Ur Transition Epith Cell Present Ur Renal Epithelial Cell Present Other Crystals Present Urine Bacteria 3+ (None Seen) Hyaline Casts >20 (0-2) /LPF Granular Casts Present Salicylates (15-30) mg/dL Urine Opiates Screen POSITIVE H (Not Detect) Urine Fentanyl Screen Not Detected (Not Detect) Acetaminophen (<30) mcg/mL Ur Barbiturates Screen Not Detected (Not Detect) Ur Phencyclidine Scrn Not Detected (Not Detect) Ur Amphetamines Screen Not Detected (Not Detect) U Benzodiazepines Scrn Not Detected (Not Detect) Urine Cocaine Screen Not Detected (Not Detect) U Marijuana (THC) Screen Not Detected (Not Detect) Ethyl Alcohol mg/dL 03/13/22 03/13/22 03/13/22 Range/Units 17:30 17:30 17:30 WBC (4.8-10.8) X10*3/uL RBC (4.20-5.50) X10*6/uL Hgb (12.0-16.0) g/dl Hct (37.0-47.0) % MCV (80.0-98.0) fL MCH (27.0-33.0) pg MCHC (31.0-35.0) g/dl RDW (11.0-16.0) % Plt Count (160-400) X10*3/uL MPV (9.4-12.3) fL Immature Gran % (Auto) (0.0-0.4) % Neut % (Auto) (45-73) % Lymph % (Auto) (20-40) % [place] % (Auto) (2-11) % Eos % (Auto) (0-4) % Baso % (Auto) (0-2) % Lymph # (Auto) (1.2-4.9) X10*3/uL [place] # (Auto) (0.1-1.2) X10*3/uL Eos # (Auto) (0.0-0.4) X10*3/uL Baso # (Auto) (0.0-0.2) X10*3/uL Abs Immat Gran (auto) (0.00-0.03) X10*3/uL Absolute Neuts (auto) (2.0-8.3) x10*3/uL Absolute Nucleated RBC (0.0-0.012) X10*3/uL Nucleated RBC % (auto) (0.0-0.2) /100WBC Sodium 137 (135-145) mmol/L Potassium 5.0 (3.3-5.1) mmol/L Chloride 104 (96-108) mmol/L Carbon Dioxide 24 (22-29) mmol/L Anion Gap 14 (12-20) BUN 30 H (9-16) mg/dL Creatinine 3.03 H (0.5-1.4) mg/dL Estim Creat Clear Calc 23.0 Estimated GFR 16 Random Glucose 167 H (60-115) mg/dL Lactic Acid 2.3 H* (0.5-2.0) mmol/L Lactic Acid F/U @ 2Hr (0.5-2.0) mmol/L Calcium 8.4 (8.4-10.2) mg/dL Magnesium 1.4 L* (1.6-2.6) mg/dL Total Bilirubin 0.5 (0.0-1.0) mg/dL AST 68 H (5-31) U/L ALT 35 H (0-31) U/L Alkaline Phosphatase 85 (39-117) U/L Total Creatine Kinase 5527 H (26-140) U/L Troponin I High Sens 5.1 (<3.5-17.0) ng/L Total Protein 5.8 L (6.5-8.0) g/dL Albumin 3.6 (3.5-5.0) g/dL Urine Color Urine Appearance Urine pH (5.0-9.0) Ur Specific [place] (1.005-1.025) Urine Protein (Neg-Trace) mg/dL Urine Glucose (UA) (Negative) mg/dL Urine Ketones (Negative) mg/dL Urine Blood (Negative) Urine Nitrite (Negative) Ur Leukocyte Esterase (Negative) Urine RBC (0-2) /HPF Urine WBC (0-5) /HPF Ur Squamous Epith Cells (0-2) /HPF Ur Transition Epith Cell Ur Renal Epithelial Cell Other Crystals Urine Bacteria (None Seen) Hyaline Casts (0-2) /LPF Granular Casts Salicylates < 5.0 L (15-30) mg/dL Urine Opiates Screen (Not Detect) Urine Fentanyl Screen (Not Detect) Acetaminophen < 1 (<30) mcg/mL Ur Barbiturates Screen (Not Detect) Ur Phencyclidine Scrn (Not Detect) Ur Amphetamines Screen (Not Detect) U Benzodiazepines Scrn (Not Detect) Urine Cocaine Screen (Not Detect) U Marijuana (THC) Screen (Not Detect) Ethyl Alcohol mg/dL 03/13/22 03/13/22 Range/Units 20:57 20:57 WBC (4.8-10.8) X10*3/uL RBC (4.20-5.50) X10*6/uL Hgb (12.0-16.0) g/dl Hct (37.0-47.0) % MCV (80.0-98.0) fL MCH (27.0-33.0) pg MCHC (31.0-35.0) g/dl RDW (11.0-16.0) % Plt Count (160-400) X10*3/uL MPV (9.4-12.3) fL Immature Gran % (Auto) (0.0-0.4) % Neut % (Auto) (45-73) % Lymph % (Auto) (20-40) % [place] % (Auto) (2-11) % Eos % (Auto) (0-4) % Baso % (Auto) (0-2) % Lymph # (Auto) (1.2-4.9) X10*3/uL [place] # (Auto) (0.1-1.2) X10*3/uL Eos # (Auto) (0.0-0.4) X10*3/uL Baso # (Auto) (0.0-0.2) X10*3/uL Abs Immat Gran (auto) (0.00-0.03) X10*3/uL Absolute Neuts (auto) (2.0-8.3) x10*3/uL Absolute Nucleated RBC (0.0-0.012) X10*3/uL Nucleated RBC % (auto) (0.0-0.2) /100WBC Sodium (135-145) mmol/L Potassium (3.3-5.1) mmol/L Chloride (96-108) mmol/L Carbon Dioxide (22-29) mmol/L Anion Gap (12-20) BUN (9-16) mg/dL Creatinine (0.5-1.4) mg/dL Estim Creat Clear Calc Estimated GFR Random Glucose (60-115) mg/dL Lactic Acid (0.5-2.0) mmol/L Lactic Acid F/U @ 2Hr 1.3 (0.5-2.0) mmol/L Calcium (8.4-10.2) mg/dL Magnesium (1.6-2.6) mg/dL Total Bilirubin (0.0-1.0) mg/dL AST (5-31) U/L ALT (0-31) U/L Alkaline Phosphatase (39-117) U/L Total Creatine Kinase (26-140) U/L Troponin I High Sens (<3.5-17.0) ng/L Total Protein (6.5-8.0) g/dL Albumin (3.5-5.0) g/dL Urine Color Urine Appearance Urine pH (5.0-9.0) Ur Specific [place] (1.005-1.025) Urine Protein (Neg-Trace) mg/dL Urine Glucose (UA) (Negative) mg/dL Urine Ketones (Negative) mg/dL Urine Blood (Negative) Urine Nitrite (Negative) Ur Leukocyte Esterase (Negative) Urine RBC (0-2) /HPF Urine WBC (0-5) /HPF Ur Squamous Epith Cells (0-2) /HPF Ur Transition Epith Cell Ur Renal Epithelial Cell Other Crystals Urine Bacteria (None Seen) Hyaline Casts (0-2) /LPF Granular Casts Salicylates (15-30) mg/dL Urine Opiates Screen (Not Detect) Urine Fentanyl Screen (Not Detect) Acetaminophen (<30) mcg/mL Ur Barbiturates Screen (Not Detect) Ur Phencyclidine Scrn (Not Detect) Ur Amphetamines Screen (Not Detect) U Benzodiazepines Scrn (Not Detect) Urine Cocaine Screen (Not Detect) U Marijuana (THC) Screen (Not Detect) Ethyl Alcohol < 10 mg/dL Independent Interpretation I performed an independent interpretation of an: EKG (Ventricular rate of 68, TX normal, QRS normal, QT/QTC normal. Normal sinus rhythm no ST elevations or inversions concerning for ischemia. No significant changes when compared to previous EKG January 2022) and CT Scan (Head CT is concerns of ischemia brain MRI ordered. Abdomen and pelvis CT with no acute findings.) Critical Care Time Critical Care Time Critical Care Time: No Discharge Plan Discharge Clinical Impression: Altered mental status, UTI (urinary tract infection), Stroke, Rhabdomyolysis Patient Disposition: Admitted As Inpatient
[2022-03-13 17:15] VITALS: PULSE 80; RESP 16; O2SAT 97
--- NOTE | 2022-03-13 17:15 | PC.NURSE ---
ambulated to and from bathroom w stand by assist for ua spec. unsteady gait.
[2022-03-13 17:16] LABS: Appearance Urine Turbid; Color Urine Yellow; Glucose Urine UA 100 mg/dL (Negative); Leukocyte Esterase Urine Large (3+) (Negative); Nitrite Urine Negative (Negative); PH 5.5 (5.0-9.0); Specific Gravity - Urine 1.015 (1.005-1.025); UMIC TRIGGER UACC YES; Urine Blood Small (1+) (Negative); Urine Ketones Negative (Negative); Urine Protein 100 (2+) mg/dL (Neg-Trace)
[2022-03-13 17:25] LABS: Amphetamine Screen Urine Not Detected (Not Detect); Barbiturates, Urine Not Detected (Not Detect); Benzodiazepines Screen Urine Not Detected (Not Detect); Cannabinoid Screen Urine Not Detected (Not Detect); Cocaine Screen Urine Not Detected (Not Detect); Fentanyl, urine Not Detected (Not Detect); Opiate Screen Urine POSITIVE (Not Detect); Phencyclidine Screen Urine Not Detected (Not Detect)
[2022-03-13 17:29] LABS: Bacteria Urine 3+ (None Seen); Granular Casts Urine Present; Hyaline Casts Urine >20 /LPF (0-2); Other Crystals Urine Present; Renal Epithelial Cells Urine Present; Squamous Epithelial Cell Urine >20 /HPF (0-2); Transitional Epi Cells Urine Present; UACC Culture Trigger YES; WBC Urine >50 /HPF (0-5)
--- NOTE | 2022-03-13 17:32 | PHA.MEDREC ---
Pharmacy Consult ? Medication Reconciliation Pharmacy has completed the medication reconciliation. Pt unable to recall med list, spoke to pt's roomate who gave current med list
[2022-03-13 17:37] LABS: MANUAL DIFF FLAG NO
[2022-03-13 17:41] LABS: Basophils Absolute Auto 0.1 X10*3/uL (0.0-0.2); Basophils Percent Auto 0.4 % (0-2); Eosinophils Absolute Auto 0.2 X10*3/uL (0.0-0.4); Eosinophils Percent Auto 1.4 % (0-4); Hematocrit 31.5 % (37.0-47.0); Hemoglobin 10.4 g/dl (12.0-16.0); Imm Gran Abs Auto 0.04 X10*3/uL (0.00-0.03); Imm Gran Pct Auto 0.3 % (0.0-0.4); Lymphocytes Percent Auto 23.7 % (20-40); Mean Corpuscular Hemoglobin 27.8 pg (27.0-33.0); Mean Corpuscular Volume 84.2 fL (80.0-98.0); Mean Platelet Volume 11.4 fL (9.4-12.3); Monocytes Absolute Auto 0.6 X10*3/uL (0.1-1.2); Monocytes Percent Auto 4.8 % (2-11); Neutrophils Absolute Auto 8.8 x10*3/uL (2.0-8.3); Neutrophils Percent Auto 69.4 % (45-73); Platelet Count 277 X10*3/uL (160-400); Red Blood Count 3.74 X10*6/uL (4.20-5.50); Red Cell Distribution Width 16.6 % (11.0-16.0); White Blood Count 12.7 X10*3/uL (4.8-10.8)
[2022-03-13 18:00] LABS: Lactic Acid 2.3 mmol/L (0.5-2.0)
[2022-03-13 18:02] LABS: Troponin-I High Sensitivity 5.1 ng/L (<3.5-17.0)
[2022-03-13 18:06] LABS: Alanine Aminotransferase 35 U/L (0-31); Albumin Level 3.6 g/dL (3.5-5.0); Alkaline Phosphatase 85 U/L (39-117); Anion Gap 14 (12-20); Aspartate Amino Transferase 68 U/L (5-31); Bilirubin Total 0.5 mg/dL (0.0-1.0); Blood Urea Nitrogen 30 mg/dL (9-16); Calcium 8.4 mg/dL (8.4-10.2); Carbon Dioxide 24 mmol/L (22-29); Chloride 104 mmol/L (96-108); Estimated Glomerular Filt Rate 16; Glucose Random 167 mg/dL (60-115); Magnesium 1.4 mg/dL (1.6-2.6); Salicylate < 5.0 mg/dL (15-30); Sodium 137 mmol/L (135-145); Total Protein 5.8 g/dL (6.5-8.0)
[2022-03-13 18:34] LABS: Acetaminophen LAB < 1 mcg/mL (<30)
--- NOTE | 2022-03-13 19:00 | PC.NURSE ---
arguing with this rn refusing iv placement, provider at bedside.
[2022-03-13 19:01] VITALS: BP 92/39; PULSE 58; RESP 26; O2SAT 99
[2022-03-13 19:34] LABS: Reflex Lactate? Lactic Acid Added
--- NOTE | 2022-03-13 21:08 | PC.NURSE ---
Pt denies any pain, calm/cooperative, reminded to remain in bed; bedpan used, linens changed, pt cleaned
[2022-03-13 21:19] LABS: ~Lactic Acid-LAB USE ONLY 1.3 mmol/L (0.5-2.0)
[2022-03-13 21:38] LABS: Ethanol < 10 mg/dL
--- NOTE | 2022-03-13 21:42 | P.HPHOSP_ITS ---
History of Present Illness Date of Service: 03/13/22 Attending physician on admission: Farzaneh Talbert Chief Complaint: AMS Pt is a 57-year-old female with a PMH significant for?asthma, bipolar disorder, diabetes, HTN, IBS, peripheral neuropathy and polysubstance abuse who presents to the ED via EMS with altered mental status. Patient cannot provide a meaningful HPI so HPI comes from a conversation with the ED provider who spoke with the patient's roommate. According to the roommate patient has been behaving erratically for the past few weeks: falling repeatedly, walking a shuffling gait, speaking nonsensically, peeing on the floor. Patient's condition worsened significantly in the past 1-2 days, thus prompting the roommate's calling EMS. Of note, patient was hospitalized numerous times in 2021 for similar presentations of unresponsiveness and altered mental status due to f entynyl overdoses.. In the ED labs were significant for leukocytosis of 12.7, H&H 10.4/31.5, crea tinine of 3.03, lactic acid 2.3, and hypomagnesemia of 1.4. UA was positive for UTI. Tox screen positive for opioids. CT?of head showed focal hypodensities in the right occipital lobe that are not significantly changed compared to 03/07/2022, suggesting subacute to chronic infarction. MRI of the brain showed no acute intracranial abnormality and small area of subacute infarction in the right occipital lobe. CT of abdomen pelvis showed no evidence of acute intra- abdominal findings. EKG showed normal sinus rhythm with no acute ischemic changes. Pt was treated with 3L NS and ceftriaxone. Pt will be admitted to the hospital for treatment evaluation of AMS, rhabdomyolysis, and UTI. Review of Systems Review of Systems: Unable to obtain due to patient's altered mentation. [facility] Medical History Asthma Bipolar disorder Chronic pain Diabetes Hypertension IBS (irritable bowel syndrome) Opioid use disorder Peripheral neuropathy Polysubstance abuse Seizure Surgical History History of appendectomy Social History Household Members: Friend(s) Household Members Other:: roommate Housing: House Do you presently have visiting nurse or other home services: No Unable to assess alcohol history related to: Unable to respond Alcohol intake: unknown Patient Tobacco Use Status: Never used Tobacco Smoked in Last 30 Days: No Use of substances other than those prescribed or required for medical reasons: Unknown Substance Use Type: Painkillers Advance Directives: Yes Advance Directives on File: Yes Advance Directives Date on File: 09/03/21 service: No Current occupational status: disabled Meds Allergies Allergy/AdvReac Type Severity Reaction Status Date / Time morphine [MORPHINE] Allergy Unknown RASH, vomit Verified 01/15/22 00:48 prednisone Allergy Unknown hives Verified 01/15/22 00:48 Sulfa (Sulfonamide Allergy Unknown UNKNOWN, Verified 01/15/22 00:48 Antibiotics) hives [SULFA (SULFONAMIDE ANTIBIOTICS)] Active Medications: Current Medications Sodium Chloride (Ns) 1,000 mls @ 999 mls/hr IV .Q1H1M SARMAD Stop: 03/13/22 21:45 Pharmacy Consult (Consult Rx Perform Med Rec) 1 each MISCELLANE ONCE PRN PRN Reason: Consult order Home Medications Medication Instructions Recorded Confirmed Last Taken Type lorazepam 0.5 mg tablet 0.5 mg PO DAILY 07/15/21 03/13/22 03/13/22 History metformin 1,000 mg tablet 1,000 mg PO BIDWM 09/03/21 03/13/22 03/13/22 History multivitamin 1 tab PO DAILY 09/03/21 03/13/22 03/13/22 History atorvastatin 20 mg tablet 20 mg PO DAILY 01/15/22 03/13/22 03/13/22 History duloxetine 30 mg capsule,delayed 30 mg PO BID 01/15/22 03/13/22 03/13/22 History release sitagliptin phosphate 100 mg 100 tab PO BEDTIME 01/15/22 03/13/22 03/12/22 History tablet (Januvia) clonidine HCl 0.2 mg tablet 1 tab PO TID PRN Anxiety 03/08/22 03/13/22 03/07/22 History hydralazine 25 mg tablet 1 tab PO TID 03/08/22 03/13/22 03/13/22 History prazosin 1 mg capsule 1 mg PO BEDTIME 03/08/22 03/13/22 03/12/22 History pregabalin 100 mg capsule 1 cap PO TID 03/08/22 03/13/22 03/13/22 History quetiapine 200 mg tablet 1 tab PO BEDTIME 03/08/22 03/13/22 03/12/22 History Physical Exam Vital Signs and Narrative: Vital Signs: Last Vital Signs Temp 98.7 F 03/13/22 16:16 Pulse 58 03/13/22 19:01 Resp 26 H 03/13/22 19:01 BP 92/39 L 03/13/22 19:01 Pulse Ox 99 03/13/22 19:01 O2 Del Method 03/13/22 19:01 BMI result Body Mass Index 32.3 Constitutional: Alert, in no acute distress. Mental Status: Oriented to person only. Eyes: Pupils are equal, round, and reactive to light. Ear, Nose, and Throat: Oropharynx clear, mucous membranes dry. Ears and nose without deformities. Trachea midline. Respiratory: Diffuse wheezing bilaterally. Cardiovascular: S1, S2 regular. No murmurs, rubs, or gallops. Gastrointestinal: Abdomen soft, non-tender, non-distended. Normal bowel sounds. Neurologic: Cranial nerves II-XI are grossly intact. No focal neurological deficits. Moves all extremities spontaneously. Skin: Notable bruise in the middle of her back. Musculoskeletal: No cyanosis or clubbing. Extremities: No edema. Psychiatric: Normal mood and affect. Results Labs CBC and Chem 7: 03/13/22 17:30 03/13/22 17:30 Labs: Laboratory Results - last 24 hr 03/13/22 03/13/22 03/13/22 17:09 17:09 17:30 MCV 84.2 MCH 27.8 MCHC 33.0 RDW 16.6 H Plt Count 277 D MPV 11.4 Immature Gran % (Auto) 0.3 Neut % (Auto) 69.4 Lymph % (Auto) 23.7 [place] % (Auto) 4.8 Eos % (Auto) 1.4 Baso % (Auto) 0.4 Lymph # (Auto) 3.0 [place] # (Auto) 0.6 Eos # (Auto) 0.2 Baso # (Auto) 0.1 Abs Immat Gran (auto) 0.04 H Absolute Neuts (auto) 8.8 H Absolute Nucleated RBC 0.000 Nucleated RBC % (auto) 0.0 Anion Gap Estim Creat Clear Calc Estimated GFR Random Glucose Lactic Acid Lactic Acid F/U @ 2Hr Calcium Magnesium Total Bilirubin AST ALT Alkaline Phosphatase Total Creatine Kinase Troponin I High Sens Total Protein Albumin Urine Color Yellow Urine Appearance Turbid Urine pH 5.5 Ur Specific [place] 1.015 Urine Protein 100 (2+) H Urine Glucose (UA) 100 H Urine Ketones Negative Urine Blood Small (1+) H Urine Nitrite Negative Ur Leukocyte Esterase Large (3+) H Urine RBC 11-20 H Urine WBC >50 H Ur Squamous Epith Cells >20 Ur Transition Epith Cell Present Ur Renal Epithelial Cell Present Other Crystals Present Urine Bacteria 3+ Hyaline Casts >20 Granular Casts Present Salicylates Urine Opiates Screen POSITIVE H Urine Fentanyl Screen Not Detected Acetaminophen Ur Barbiturates Screen Not Detected Ur Phencyclidine Scrn Not Detected Ur Amphetamines Screen Not Detected U Benzodiazepines Scrn Not Detected Urine Cocaine Screen Not Detected U Marijuana (THC) Screen Not Detected Ethyl Alcohol 03/13/22 03/13/22 03/13/22 17:30 17:30 17:30 MCV MCH MCHC RDW Plt Count MPV Immature Gran % (Auto) Neut % (Auto) Lymph % (Auto) [place] % (Auto) Eos % (Auto) Baso % (Auto) Lymph # (Auto) [place] # (Auto) Eos # (Auto) Baso # (Auto) Abs Immat Gran (auto) Absolute Neuts (auto) Absolute Nucleated RBC Nucleated RBC % (auto) Anion Gap 14 Estim Creat Clear Calc 23.0 Estimated GFR 16 Random Glucose 167 H Lactic Acid 2.3 H* Lactic Acid F/U @ 2Hr Calcium 8.4 Magnesium 1.4 L* Total Bilirubin 0.5 AST 68 H ALT 35 H Alkaline Phosphatase 85 Total Creatine Kinase 5527 H Troponin I High Sens 5.1 Total Protein 5.8 L Albumin 3.6 Urine Color Urine Appearance Urine pH Ur Specific [place] Urine Protein Urine Glucose (UA) Urine Ketones Urine Blood Urine Nitrite Ur Leukocyte Esterase Urine RBC Urine WBC Ur Squamous Epith Cells Ur Transition Epith Cell Ur Renal Epithelial Cell Other Crystals Urine Bacteria Hyaline Casts Granular Casts Salicylates < 5.0 L Urine Opiates Screen Urine Fentanyl Screen Acetaminophen < 1 Ur Barbiturates Screen Ur Phencyclidine Scrn Ur Amphetamines Screen U Benzodiazepines Scrn Urine Cocaine Screen U Marijuana (THC) Screen Ethyl Alcohol 03/13/22 03/13/22 20:57 20:57 MCV MCH MCHC RDW Plt Count MPV Immature Gran % (Auto) Neut % (Auto) Lymph % (Auto) [place] % (Auto) Eos % (Auto) Baso % (Auto) Lymph # (Auto) [place] # (Auto) Eos # (Auto) Baso # (Auto) Abs Immat Gran (auto) Absolute Neuts (auto) Absolute Nucleated RBC Nucleated RBC % (auto) Anion Gap Estim Creat Clear Calc Estimated GFR Random Glucose Lactic Acid Lactic Acid F/U @ 2Hr 1.3 Calcium Magnesium Total Bilirubin AST ALT Alkaline Phosphatase Total Creatine Kinase Troponin I High Sens Total Protein Albumin Urine Color Urine Appearance Urine pH Ur Specific [place] Urine Protein Urine Glucose (UA) Urine Ketones Urine Blood Urine Nitrite Ur Leukocyte Esterase Urine RBC Urine WBC Ur Squamous Epith Cells Ur Transition Epith Cell Ur Renal Epithelial Cell Other Crystals Urine Bacteria Hyaline Casts Granular Casts Salicylates Urine Opiates Screen Urine Fentanyl Screen Acetaminophen Ur Barbiturates Screen Ur Phencyclidine Scrn Ur Amphetamines Screen U Benzodiazepines Scrn Urine Cocaine Screen U Marijuana (THC) Screen Ethyl Alcohol < 10 Imaging Radiologist's Impressions: Impressions Head CT 03/13/22 16:33 IMPRESSION: Unchanged focal hypodensities in the right occipital lobe suggestive of an evolving infarction. If clinically deemed appropriate, further characterization could be obtained with an MR of the brain. No intracranial hemorrhage or significant mass effect. Brain MRI 03/13/22 18:00 IMPRESSION: No acute intracranial abnormality. Small area of subacute infarction in the right occipital lobe. Abdomen/Pelvis CT 03/13/22 19:30 IMPRESSION: 1. No CT evidence of acute intra-abdominal findings. Cause of the patient's pain has not been determined by CT. 2. Mild bibasilar atelectasis. 3. Postsurgical changes spine, multilevel degenerative changes. Findings appear similar as compared to the prior CT of 01/21/2022. No acute findings or significant interval changes identified 4. Additional chronic findings as detailed above, similar to previous. Fleischner guidelines were followed. Assessment and Plan (1) UTI (urinary tract infection): Status: Acute (2) Altered mental status: Status: Acute (3) Rhabdomyolysis: Status: Acute Plan Pt is a 57-year-old female with a PMH significant for?asthma, bipolar disorder, diabetes, HTN, IBS, peripheral neuropathy and polysubstance abuse who presents to the ED via EMS with altered mental status. Pt was found to have rhabdomyolysis, DANY, and UTI. Patient be admitted hospital for treatment with IVF and IV antibiotics. Acute metabolic encephalopathy Likely multifactorial and due to her UTI, rhabdomyolysis, DANY Less likely due to acute infarct Rhabdomyolysis Likely secondary to history of recent falls in setting of opioid use disorder and reduced p.o. intake Aggressive IVF volume expansion DANY Likely secondary to rhabdomyolysis IVF Follow labs Hypomagnesemia Given IV magnesium in the ED Follow labs, correct as neccesary UTI Ceftriaxone, day 03/15 Subacute infarct right occipital lobe Unchanged on today's CT and MRI from patient's last scan on 03/07/2022 Aspirin 81 mg daily Continue statin Follow-up with Neurology outpatient for additional workup Anemia, chronic Appears stable, at baseline Asthma Patient wheezing on physical exam Albuterol inhaler p.r.n. for wheezing Diabetes Hold home meds SSI Full Code Attending:?Dr. Talbert DVT Prophylaxis: Lovenox Pt will require a hospitalization of at least two nights for treatment with IV fluids and antibiotics.. Time Spent With Patient Time: Total time managing care of this patient today ____ minutes. Quality Stroke Does the patient have a stroke diagnosis?: No VTE Prior VTE?: No VTE Risk Level:: Medical - moderate - high VTE Device Contraindication: Treatment Not Indicated VTE Drug Contraindication: N/A - Med Ordered
[2022-03-13] MEDS: cefTRIAXone sodium 1 GM in 0.9 % Sodium Chloride 50 ML IV (22:25)
[2022-03-13] MEDS: 0.9 % Sodium Chloride 1,000 ML 999 ML IV ×3 (22:26→22:32)
--- NOTE | 2022-03-13 22:33 | PC.NURSE ---
Assumed care of pt, no apparent distres, pt is oriented to self yet unable to provide her correct date of , not oriented to place, situation, nor time; delay in director of medical review due to caring for pt that was critical, meds were already late in being administered prior to this RN assuming care of this patient; charge nurse made aware; another delay was establishing IV access as patient was a difficult stick and assistance was needed after failed attempt at obtaining IV access
[2022-03-13] MEDS: Magnesium Sulfate/H2O 2 GM/50 ML PIGGYBACK IV (23:01)
[2022-03-13 23:12] VITALS: BP 121/48; PULSE 73; O2SAT 96
[2022-03-13 23:35] LABS: Cholesterol 164 mg/dL; HDL Cholesterol 35 mg/dL; Triglycerides 476 mg/dL
[2022-03-14] MEDS: Enoxaparin Sodium 30 MG/0.3 ML SYRINGE SUBCUT ×2 (00:33→20:22)
--- NOTE | 2022-03-14 00:39 | PC.NURSE ---
Called pharmacy to have olanzapine verified in order to administer to patient.
[2022-03-14] MEDS: OLANZapine 10 MG VIAL 5 MG IM (02:28)
[2022-03-14] MEDS: 0.9 % Sodium Chloride 1,000 ML 125 ML IVCONT ×3 (02:42→14:02)
[2022-03-14 02:49] LABS: COVID-19 Test Negative (Negative); IDNOW Serial# 16C4AD1C
--- NOTE | 2022-03-14 02:51 | PC.NURSE ---
Pt sleeping, no apparent distress
--- NOTE | 2022-03-14 03:13 | PC.NURSE ---
Pt placed on bedpan, linens changed, pt cleaned
--- NOTE | 2022-03-14 04:28 | PC.NURSE ---
audible wheezes, called respiratory for albuterol txmt per prn order
--- NOTE | 2022-03-14 05:42 | PC.NURSE ---
patient placed on bedpan, chucks removed and replaced, patient cleaned.
[2022-03-14 06:56] LABS: Hematocrit 33.1 % (37.0-47.0); Hemoglobin 10.5 g/dl (12.0-16.0); Mean Corpuscular HGB Conc 31.7 g/dl (31.0-35.0); Mean Corpuscular Volume 85.1 fL (80.0-98.0); Mean Platelet Volume 11.5 fL (9.4-12.3); Platelet Count 209 X10*3/uL (160-400); Red Blood Count 3.89 X10*6/uL (4.20-5.50); Red Cell Distribution Width 16.2 % (11.0-16.0); White Blood Count 7.2 X10*3/uL (4.8-10.8)
[2022-03-14 07:21] VITALS: BP 152/57; PULSE 70; RESP 20; TEMP 36.8; O2SAT 97
[2022-03-14 07:27] LABS: Glucose, Whole Blood 139 mg/dL (60-115)
[2022-03-14 07:29] LABS: Anion Gap 14 (12-20); Blood Urea Nitrogen 20 mg/dL (9-16); Calcium 7.8 mg/dL (8.4-10.2); Carbon Dioxide 19 mmol/L (22-29); Chloride 110 mmol/L (96-108); Creatinine Clr Calc Pharmacy 46.3; Estimated Glomerular Filt Rate 36; Glucose Random 148 mg/dL (60-115); Magnesium 1.8 mg/dL (1.6-2.6); Potassium 4.7 mmol/L (3.3-5.1); Sodium 138 mmol/L (135-145)
[2022-03-14] MEDS: 0.9 % Sodium Chloride Flush 3 ML SYRINGE IVFLUSH (08:23)
[2022-03-14] MEDS: DULoxetine HCl 30 MG CAPSULE.DR PO ×2 (08:43→20:22)
[2022-03-14] MEDS: Aspirin Enteric Coated 81 MG TABLET.DR PO (08:43)
[2022-03-14] MEDS: Multivitamin TABLET 1 TAB PO (08:44)
[2022-03-14] MEDS: LORazepam 0.5 MG TABLET PO (08:44)
[2022-03-14] MEDS: hydrALAZINE HCl 25 MG TABLET PO ×3 (08:44→20:22)
[2022-03-14] MEDS: Pregabalin 100 MG CAPSULE PO ×3 (08:44→20:22)
--- NOTE | 2022-03-14 11:04 | PC.NURSE ---
assumed care of patient at this time. placed new iv in the left wrist. IVF running per MAY. bed in lowest locked position for safety.
[2022-03-14 12:33] VITALS: BP 143/63; PULSE 79; RESP 16; O2SAT 94
[2022-03-14 12:35] LABS: Glucose, Whole Blood 237 mg/dL (60-115)
[2022-03-14] MEDS: Insulin Lispro 100 UNIT/ML 3 ML VIAL SUBCUT ×3 (14:00→20:22)
--- NOTE | 2022-03-14 14:13 | PC.NURSE ---
pt medicated per order
--- NOTE | 2022-03-14 15:10 | P.PNIM_ITS ---
Subjective Subjective Date of Service: 03/14/22 Interval History: cc: ams interval history:more alert, but having expressive aphasia Physical Exam Vital Signs: Vital Signs: Last Vital Signs Temp 98.2 F 03/14/22 07:21 Pulse 79 03/14/22 12:33 Resp 16 03/14/22 12:33 BP 143/63 H 03/14/22 12:33 Pulse Ox 94 03/14/22 12:33 O2 Del Method 03/14/22 12:33 BMI result Body Mass Index 32.3 General: AO X 3, no acute distress Resp: CTA bilateral, no accessory muscles used CVS: S1,S2,RRR GI: soft, non tender, non distended Neuro: motor grossly intact, expressive aphasia Psych: appropriate affect, appropriate insight Objective Data Active Medications Acetaminophen (Acetaminophen 325 Mg Tablet) 650 mg PO Q6H PRN PRN Reason: Pain, Mild (Pain Scale 1-3) Albuterol Sulfate (Albuterol Sulfate 90 Mcg 8 Gm Inhaler) 2 puff INHALE RQ6H PRN PRN Reason: Wheezing Aspirin (Aspirin Enteric Coated 81 Mg Tablet.) 81 mg PO DAILY [facility] Last Admin: 03/14/22 08:43 Dose: 81 mg Documented By: JOSUÉ Atorvastatin Calcium (Atorvastatin Calcium 20 Mg Tablet) 20 mg PO BEDTIME [facility] Clonidine HCl (Clonidine Hcl 0.2 Mg Tablet) 0.2 mg PO TID PRN; Protocol PRN Reason: Anxiety Dextrose (Dextrose 50 % 25 Gm/50 Ml Syringe) 25 gm IVPUSH Q15M PRN; Protocol PRN Reason: per Hypoglycemia Standing Ord. Docusate Sodium (Docusate Sodium 100 Mg Capsule) 100 mg PO DAILY PRN PRN Reason: Constipation Duloxetine HCl (Duloxetine Hcl 30 Mg Capsule.) 30 mg PO BID [facility] Last Admin: 03/14/22 08:43 Dose: 30 mg Documented By: JOSUÉ Enoxaparin Sodium (Enoxaparin Sodium 30 Mg/0.3 Ml Syringe) 30 mg SUBCUT BEDTIME [facility] Last Admin: 03/14/22 00:33 Dose: 30 mg Documented By: WANDA Glucose (Glucose Gel 15 Gm Gel..Gram.) 15 gm PO Q15M PRN; Protocol PRN Reason: per Hypoglycemia Standing Ord. Hydralazine HCl (Hydralazine Hcl 25 Mg Tablet) 25 mg PO TID [facility]; Protocol Last Admin: 03/14/22 14:12 Dose: 25 mg Documented By: CONSTANTIN Ceftriaxone Sodium 1 gm/ (Sodium Chloride) 50 mls @ 100 mls/hr IV Q24H [facility] Sodium Chloride (Ns) 1,000 mls @ 80 mls/hr IVCONT .[id number] [facility] Last Admin: 03/14/22 14:02 Dose: 125 mls/hr Documented By: CONSTANTIN Insulin Human Lispro (Insulin Lispro 100 Unit/Ml 3 Ml Vial) 0 unit SUBCUT QIDACHS [facility]; Protocol Last Admin: 03/14/22 14:00 Dose: 4 unit Documented By: CONSTANTIN Lorazepam (Lorazepam 0.5 Mg Tablet) 0.5 mg PO DAILY [facility] Last Admin: 03/14/22 08:44 Dose: 0.5 mg Documented By: JOSUÉ Lurasidone HCl (Lurasidone Hcl 40 Mg Tablet) 40 mg PO DAILY@1800 [facility] Multivitamins/Vitamin C (Multivitamin Tablet) 1 tab PO DAILY [facility] Last Admin: 03/14/22 08:44 Dose: 1 tab Documented By: JOSUÉ Ondansetron HCl (Ondansetron Hcl 4 Mg/2 Ml Vial) 4 mg IVPUSH Q8H PRN PRN Reason: Nausea and Vomiting Pharmacy Consult (Consult Rx Perform Med Rec) 1 each MISCELLANE ONCE PRN PRN Reason: Consult order Prazosin HCl (Prazosin Hcl 1 Mg Capsule) 1 mg PO BEDTIME [facility]; Protocol Pregabalin (Pregabalin 100 Mg Capsule) 100 mg PO TID [facility] Last Admin: 03/14/22 14:09 Dose: 100 mg Documented By: CONSTANTIN Quetiapine Fumarate (Quetiapine Fumarate 200 Mg Tablet) 200 mg PO BEDTIME [facility] Sodium Chloride (0.9 % Sodium Chloride Flush 3 Ml Syringe) 3 ml IVFLUSH QSHIFT [facility] Last Admin: 03/14/22 14:00 Dose: Not Given Documented By: CONSTANTIN Non-Admin Reason: IV Running Labs CBC & Chem 7: 03/14/22 06:37 03/14/22 06:37 Labs: Laboratory Results - last 24 hr 01/03/23 01/03/23 01/03/23 17:09 17:09 17:30 MCV 84.2 MCH 27.8 MCHC 33.0 RDW 16.6 H Plt Count 277 D MPV 11.4 Immature Gran % (Auto) 0.3 Neut % (Auto) 69.4 Lymph % (Auto) 23.7 [place] % (Auto) 4.8 Eos % (Auto) 1.4 Baso % (Auto) 0.4 Lymph # (Auto) 3.0 [place] # (Auto) 0.6 Eos # (Auto) 0.2 Baso # (Auto) 0.1 Abs Immat Gran (auto) 0.04 H Absolute Neuts (auto) 8.8 H Absolute Nucleated RBC 0.000 Nucleated RBC % (auto) 0.0 Anion Gap Estim Creat Clear Calc Estimated GFR POC Glucose Random Glucose Lactic Acid Lactic Acid F/U @ 2Hr Calcium Magnesium Total Bilirubin AST ALT Alkaline Phosphatase Total Creatine Kinase Troponin I High Sens Total Protein Albumin Triglycerides Cholesterol LDL Cholesterol, Calc HDL Cholesterol Urine Color Yellow Urine Appearance Turbid Urine pH 5.5 Ur Specific [place] 1.015 Urine Protein 100 (2+) H Urine Glucose (UA) 100 H Urine Ketones Negative Urine Blood Small (1+) H Urine Nitrite Negative Ur Leukocyte Esterase Large (3+) H Urine RBC 11-20 H Urine WBC >50 H Ur Squamous Epith Cells >20 Ur Transition Epith Cell Present Ur Renal Epithelial Cell Present Other Crystals Present Urine Bacteria 3+ Hyaline Casts >20 Granular Casts Present Salicylates Urine Opiates Screen POSITIVE H Urine Fentanyl Screen Not Detected Acetaminophen Ur Barbiturates Screen Not Detected Ur Phencyclidine Scrn Not Detected Ur Amphetamines Screen Not Detected U Benzodiazepines Scrn Not Detected Urine Cocaine Screen Not Detected U Marijuana (THC) Screen Not Detected Ethyl Alcohol COVID-19 ([facility]) COVID-19 Clin Com 03/13/22 03/13/22 03/13/22 17:30 17:30 17:30 MCV MCH MCHC RDW Plt Count MPV Immature Gran % (Auto) Neut % (Auto) Lymph % (Auto) [place] % (Auto) Eos % (Auto) Baso % (Auto) Lymph # (Auto) [place] # (Auto) Eos # (Auto) Baso # (Auto) Abs Immat Gran (auto) Absolute Neuts (auto) Absolute Nucleated RBC Nucleated RBC % (auto) Anion Gap 14 Estim Creat Clear Calc 23.0 Estimated GFR 16 POC Glucose Random Glucose 167 H Lactic Acid 2.3 H* Lactic Acid F/U @ 2Hr Calcium 8.4 Magnesium 1.4 L* Total Bilirubin 0.5 AST 68 H ALT 35 H Alkaline Phosphatase 85 Total Creatine Kinase 5527 H Troponin I High Sens 5.1 Total Protein 5.8 L Albumin 3.6 Triglycerides Cholesterol LDL Cholesterol, Calc HDL Cholesterol Urine Color Urine Appearance Urine pH Ur Specific [place] Urine Protein Urine Glucose (UA) Urine Ketones Urine Blood Urine Nitrite Ur Leukocyte Esterase Urine RBC Urine WBC Ur Squamous Epith Cells Ur Transition Epith Cell Ur Renal Epithelial Cell Other Crystals Urine Bacteria Hyaline Casts Granular Casts Salicylates < 5.0 L Urine Opiates Screen Urine Fentanyl Screen Acetaminophen < 1 Ur Barbiturates Screen Ur Phencyclidine Scrn Ur Amphetamines Screen U Benzodiazepines Scrn Urine Cocaine Screen U Marijuana (THC) Screen Ethyl Alcohol COVID-19 ([facility]LYS) COVID-[employer] 03/13/22 03/13/22 03/14/22 20:57 20:57 02:17 MCV MCH MCHC RDW Plt Count MPV Immature Gran % (Auto) Neut % (Auto) Lymph % (Auto) [place] % (Auto) Eos % (Auto) Baso % (Auto) Lymph # (Auto) [place] # (Auto) Eos # (Auto) Baso # (Auto) Abs Immat Gran (auto) Absolute Neuts (auto) Absolute Nucleated RBC Nucleated RBC % (auto) Anion Gap Estim Creat Clear Calc Estimated GFR POC Glucose Random Glucose Lactic Acid Lactic Acid F/U @ 2Hr 1.3 Calcium Magnesium Total Bilirubin AST ALT Alkaline Phosphatase Total Creatine Kinase Troponin I High Sens Total Protein Albumin Triglycerides 476 Cholesterol 164 LDL Cholesterol, Calc TNP HDL Cholesterol 35 Urine Color Urine Appearance Urine pH Ur Specific [place] Urine Protein Urine Glucose (UA) Urine Ketones Urine Blood Urine Nitrite Ur Leukocyte Esterase Urine RBC Urine WBC Ur Squamous Epith Cells Ur Transition Epith Cell Ur Renal Epithelial Cell Other Crystals Urine Bacteria Hyaline Casts Granular Casts Salicylates Urine Opiates Screen Urine Fentanyl Screen Acetaminophen Ur Barbiturates Screen Ur Phencyclidine Scrn Ur Amphetamines Screen U Benzodiazepines Scrn Urine Cocaine Screen U Marijuana (THC) Screen Ethyl Alcohol < 10 COVID-19 (MARLYS) Negative COVID-19 [employer] Com See Note 03/14/22 03/14/22 03/14/22 06:37 06:37 07:09 MCV 85.1 MCH 27.0 MCHC 31.7 RDW 16.2 H Plt Count 209 MPV 11.5 Immature Gran % (Auto) Neut % (Auto) Lymph % (Auto) [place] % (Auto) Eos % (Auto) Baso % (Auto) Lymph # (Auto) [place] # (Auto) Eos # (Auto) Baso # (Auto) Abs Immat Gran (auto) Absolute Neuts (auto) Absolute Nucleated RBC 0.000 Nucleated RBC % (auto) 0.0 Anion Gap 14 Estim Creat Clear Calc 46.3 Estimated GFR 36 POC Glucose 139 H Random Glucose 148 H Lactic Acid Lactic Acid F/U @ 2Hr Calcium 7.8 L D Magnesium 1.8 Total Bilirubin AST ALT Alkaline Phosphatase Total Creatine Kinase Troponin I High Sens Total Protein Albumin Triglycerides Cholesterol LDL Cholesterol, Calc HDL Cholesterol Urine Color Urine Appearance Urine pH Ur Specific [place] Urine Protein Urine Glucose (UA) Urine Ketones Urine Blood Urine Nitrite Ur Leukocyte Esterase Urine RBC Urine WBC Ur Squamous Epith Cells Ur Transition Epith Cell Ur Renal Epithelial Cell Other Crystals Urine Bacteria Hyaline Casts Granular Casts Salicylates Urine Opiates Screen Urine Fentanyl Screen Acetaminophen Ur Barbiturates Screen Ur Phencyclidine Scrn Ur Amphetamines Screen U Benzodiazepines Scrn Urine Cocaine Screen U Marijuana (THC) Screen Ethyl Alcohol COVID-19 (MARLYS) COVID-19 Clin Com 03/14/22 12:32 MCV MCH MCHC RDW Plt Count MPV Immature Gran % (Auto) Neut % (Auto) Lymph % (Auto) [place] % (Auto) Eos % (Auto) Baso % (Auto) Lymph # (Auto) [place] # (Auto) Eos # (Auto) Baso # (Auto) Abs Immat Gran (auto) Absolute Neuts (auto) Absolute Nucleated RBC Nucleated RBC % (auto) Anion Gap Estim Creat Clear Calc Estimated GFR POC Glucose 237 H Random Glucose Lactic Acid Lactic Acid F/U @ 2Hr Calcium Magnesium Total Bilirubin AST ALT Alkaline Phosphatase Total Creatine Kinase Troponin I High Sens Total Protein Albumin Triglycerides Cholesterol LDL Cholesterol, Calc HDL Cholesterol Urine Color Urine Appearance Urine pH Ur Specific [place] Urine Protein Urine Glucose (UA) Urine Ketones Urine Blood Urine Nitrite Ur Leukocyte Esterase Urine RBC Urine WBC Ur Squamous Epith Cells Ur Transition Epith Cell Ur Renal Epithelial Cell Other Crystals Urine Bacteria Hyaline Casts Granular Casts Salicylates Urine Opiates Screen Urine Fentanyl Screen Acetaminophen Ur Barbiturates Screen Ur Phencyclidine Scrn Ur Amphetamines Screen U Benzodiazepines Scrn Urine Cocaine Screen U Marijuana (THC) Screen Ethyl Alcohol COVID-19 (MARLYS) COVID-19 Clin Com Microbiology Microbiology Results: Microbiology 03/13/22 Unknown Urine Culture - Preliminary Urine clean catch - Urine turner top Culture in progress. Assessment and Plan (1) Altered mental status: Status: Acute Plan 57-year-old female with a PMH significant for?asthma, bipolar disorder, diabetes, HTN, IBS, peripheral neuropathy and polysubstance abuse who presents to the ED via EMS with altered mental status. Pt was found to have rhabdomyolysis, DANY, and UTI.? Patient be admitted hospital for treatment with IVF and IV antibiotics. Acute metabolic encephalopathy Likely multifactorial and due to her UTI, rhabdomyolysis, DANY Less likely due to subacute infarct neuro eval asa, statin Rhabdomyolysis Likely secondary to history of recent falls in setting of opioid use disorder and reduced p.o. intake Aggressive IVF volume expansion DANY Likely secondary to rhabdomyolysis IVF Follow labs Hypomagnesemia Given IV magnesium in the ED Follow labs, correct as neccesary UTI Ceftriaxone, day 2/ Anemia, chronic Appears stable, at baseline Asthma, moderate persistent with acute decompensation Patient wheezing on physical exam Albuterol inhaler p.r.n. for wheezing Diabetes Hold home meds SSI Full Code DVT Prophylaxis: Lovenox reason for continued hospitalization:ams Time Spent With Patient Time: Total time managing care of this patient today ____ minutes. Quality Stroke Does the patient have a stroke diagnosis?: No VTE Prior VTE?: No VTE Risk Level:: Medical - moderate - high VTE Device Contraindication: Treatment Not Indicated VTE Drug Contraindication: N/A - Med Ordered
[2022-03-14 15:53] VITALS: BP 153/69; PULSE 81; RESP 20; TEMP 37.1; O2SAT 95
--- NOTE | 2022-03-14 16:08 | P.CNNE_ITS ---
History of Present Illness Data of Consult Service Date: 03/14/22 Primary Care Provider: Unknown Physician HPI Reason for consult: Stroke 57 years old woman with history of drug abuse admitted hospital with change in mental status. Routine head CT revealed a possible stroke and then an MRI was performed. Onset of stroke-like symptoms was unclear. She was surprised that she had a stroke. Initially her blood sugar was high and blood pressure was also high and and later blood pressure also significantly dropped. Review of Systems Review of Systems: Recent confusion. She denied any recent drug use. [facility] Past Medical History Medical History Asthma Bipolar disorder Chronic pain Diabetes Hypertension IBS (irritable bowel syndrome) Opioid use disorder Peripheral neuropathy Polysubstance abuse Seizure Surgical History Surgical History History of appendectomy Social History Social History Household Members: Friend(s) Household Members Other:: roommate Housing: House Do you presently have visiting nurse or other home services: No Unable to assess alcohol history related to: Unable to respond Alcohol intake: unknown Patient Tobacco Use Status: Never used Tobacco Smoked in Last 30 Days: No Use of substances other than those prescribed or required for medical reasons: Unknown Substance Use Type: Painkillers Advance Directives: Yes Advance Directives on File: Yes Advance Directives Date on File: 09/03/21 service: No Current occupational status: disabled Meds Allergies Allergy/AdvReac Type Severity Reaction Status Date / Time morphine [MORPHINE] Allergy Unknown RASH, vomit Verified 01/15/22 00:48 prednisone Allergy Unknown hives Verified 01/15/22 00:48 Sulfa (Sulfonamide Allergy Unknown UNKNOWN, Verified 01/15/22 00:48 Antibiotics) hives [SULFA (SULFONAMIDE ANTIBIOTICS)] Active Medications: Current Medications Acetaminophen (Acetaminophen 325 Mg Tablet) 650 mg PO Q6H PRN PRN Reason: Pain, Mild (Pain Scale 1-3) Albuterol Sulfate (Albuterol Sulfate 90 Mcg 8 Gm Inhaler) 2 puff INHALE RQ6H PRN PRN Reason: Wheezing Aspirin (Aspirin Enteric Coated 81 Mg Tablet.) 81 mg PO DAILY [facility] Last Admin: 03/14/22 08:43 Dose: 81 mg Atorvastatin Calcium (Atorvastatin Calcium 20 Mg Tablet) 20 mg PO BEDTIME [facility] Clonidine HCl (Clonidine Hcl 0.2 Mg Tablet) 0.2 mg PO TID PRN; Protocol PRN Reason: Anxiety Dextrose (Dextrose 50 % 25 Gm/50 Ml Syringe) 25 gm IVPUSH Q15M PRN; Protocol PRN Reason: per Hypoglycemia Standing Ord. Docusate Sodium (Docusate Sodium 100 Mg Capsule) 100 mg PO DAILY PRN PRN Reason: Constipation Duloxetine HCl (Duloxetine Hcl 30 Mg Capsule.Dr) 30 mg PO BID [facility] Last Admin: 03/14/22 08:43 Dose: 30 mg Enoxaparin Sodium (Enoxaparin Sodium 30 Mg/0.3 Ml Syringe) 30 mg SUBCUT BEDTIME [facility] Last Admin: 03/14/22 00:33 Dose: 30 mg Glucose (Glucose Gel 15 Gm Gel..Gram.) 15 gm PO Q15M PRN; Protocol PRN Reason: per Hypoglycemia Standing Ord. Hydralazine HCl (Hydralazine Hcl 25 Mg Tablet) 25 mg PO TID [facility]; Protocol Last Admin: 03/14/22 14:12 Dose: 25 mg Ceftriaxone Sodium 1 gm/ (Sodium Chloride) 50 mls @ 100 mls/hr IV Q24H [facility] Sodium Chloride (Ns) 1,000 mls @ 80 mls/hr IVCONT .[id number] [facility] Last Admin: 03/14/22 14:02 Dose: 125 mls/hr Insulin Human Lispro (Insulin Lispro 100 Unit/Ml 3 Ml Vial) 0 unit SUBCUT QIDACHS [facility]; Protocol Last Admin: 03/14/22 14:00 Dose: 4 unit Lorazepam (Lorazepam 0.5 Mg Tablet) 0.5 mg PO DAILY [facility] Last Admin: 03/14/22 08:44 Dose: 0.5 mg Lurasidone HCl (Lurasidone Hcl 40 Mg Tablet) 40 mg PO DAILY@1800 [facility] Multivitamins/Vitamin C (Multivitamin Tablet) 1 tab PO DAILY [facility] Last Admin: 03/14/22 08:44 Dose: 1 tab Ondansetron HCl (Ondansetron Hcl 4 Mg/2 Ml Vial) 4 mg IVPUSH Q8H PRN PRN Reason: Nausea and Vomiting Pharmacy Consult (Consult Rx Perform Med Rec) 1 each MISCELLANE ONCE PRN PRN Reason: Consult order Prazosin HCl (Prazosin Hcl 1 Mg Capsule) 1 mg PO BEDTIME [facility]; Protocol Pregabalin (Pregabalin 100 Mg Capsule) 100 mg PO TID [facility] Last Admin: 03/14/22 14:09 Dose: 100 mg Quetiapine Fumarate (Quetiapine Fumarate 200 Mg Tablet) 200 mg PO BEDTIME [facility] Sodium Chloride (0.9 % Sodium Chloride Flush 3 Ml Syringe) 3 ml IVFLUSH QSHIFT [facility] Last Admin: 03/14/22 14:00 Dose: Not Given Home Medications Medication Instructions Recorded Confirmed Last Taken Type lorazepam 0.5 mg tablet 0.5 mg PO DAILY 07/15/21 03/13/22 03/13/22 History metformin 1,000 mg tablet 1,000 mg PO BIDWM 09/03/21 03/13/22 03/13/22 History multivitamin 1 tab PO DAILY 09/03/21 03/13/22 03/13/22 History atorvastatin 20 mg tablet 20 mg PO DAILY 01/15/22 03/13/22 03/13/22 History duloxetine 30 mg capsule,delayed 30 mg PO BID 01/15/22 03/13/22 03/13/22 History release sitagliptin phosphate 100 mg 100 tab PO BEDTIME 01/15/22 03/13/22 03/12/22 History tablet (Januvia) clonidine HCl 0.2 mg tablet 1 tab PO TID PRN Anxiety 03/08/22 03/13/22 03/07/22 History hydralazine 25 mg tablet 1 tab PO TID 03/08/22 03/13/22 03/13/22 History prazosin 1 mg capsule 1 mg PO BEDTIME 03/08/22 03/13/22 03/12/22 History pregabalin 100 mg capsule 1 cap PO TID 03/08/22 03/13/22 03/13/22 History quetiapine 200 mg tablet 1 tab PO BEDTIME 03/08/22 03/13/22 03/12/22 History Physical Exam Vital Signs: Vital Signs: Last Vital Signs Temp 98.8 F 03/14/22 15:53 Pulse 81 03/14/22 15:53 Resp 20 03/14/22 15:53 BP 153/69 H 03/14/22 15:53 Pulse Ox 95 03/14/22 15:53 O2 Del Method 03/14/22 15:53 BMI result Body Mass Index 32.3 Neuro: Other: She was alert and awake with normal spontaneity of speech fluency comprehension and affect. She was moderate to severely obese. Visual montoya are full. Face was symmetrical. There was no focal weakness. Deep tendon reflexes are absent with flexor plantars per Results Labs CBC & Chem 7: 03/14/22 06:37 03/14/22 06:37 Labs: Short CBC 03/13/22 03/14/22 Range/Units 17:30 06:37 WBC 12.7 H 7.2 (4.8-10.8) X10*3/uL Hgb 10.4 L 10.5 L (12.0-16.0) g/dl Hct 31.5 L 33.1 L (37.0-47.0) % Plt Count 277 D 209 (160-400) X10*3/uL BMP 03/13/22 03/14/22 17:30 06:37 Sodium 137 138 Potassium 5.0 4.7 Chloride 104 110 H Carbon Dioxide 24 19 L BUN 30 H 20 H Creatinine 3.03 H 1.50 H Calcium 8.4 7.8 L D Cardiac Enzymes 03/13/22 Range/Units 17:30 Total Creatine Kinase 5527 H (26-140) U/L Liver Function 03/13/22 Range/Units 17:30 Total Bilirubin 0.5 (0.0-1.0) mg/dL AST 68 H (5-31) U/L ALT 35 H (0-31) U/L Alkaline Phosphatase 85 (39-117) U/L Albumin 3.6 (3.5-5.0) g/dL Urine 03/13/22 Range/Units 17:09 Urine Color Yellow Urine Appearance Turbid Urine pH 5.5 (5.0-9.0) Ur Specific [place] 1.015 (1.005-1.025) Urine Protein 100 (2+) H (Neg-Trace) mg/dL Urine Glucose (UA) 100 H (Negative) mg/dL Her noncontrast head CT revealed a small right posterior cerebral artery area hypodensity. MRI of brain revealed area of restricted diffusion in that area with suggestion of a subacute ischemic lesion. Microbiology Microbiology Results: Microbiology 03/13/22 Unknown Urine clean catch - Urine turner top Urine Culture - Preliminary Culture in progress. Assessment and Plan (1) Cerebral infarction: Status: Acute 57 years old woman with underlying history of drug use and obesity with uncontrolled diabetes and hypertension came to hospital with change in mental status and nonspecific symptoms. Her imaging revealed a subacute right posterior cerebral artery area infarct, mostly asymptomatic. Its etiology is unclear and mildly multifactorial including drugs, hyperglycemia and hypertension. I would recommend obtaining CTA of brain and neck and echocardiogram to rule out any underlying etiology for this type of stroke. Otherwise mainstay of management is control of blood sugar, anti-platelet agent like baby aspirin, statin and blood pressure control. Time Spent With Patient Time: Total time managing care of this patient today ____ minutes. Procedures Date of Service Date of Service: 03/14/22
--- NOTE | 2022-03-14 16:10 | PC.NURSE ---
patient awake/alert, pt continuously attempting to get oob, camera intact for patient safety, bed alarm on, patient has pure wick patient/draining but has also removed the pure wick and been incontinent of large amounts of urine. IVF running per order, call michaud within reach, will continue to monitor.
--- NOTE | 2022-03-14 17:24 | PC.NURSE ---
patient incontinent of urine, bed change performed, pure wick reapplied, pt turned to comfort, will continue to monitor
[2022-03-14 17:57] LABS: Glucose, Whole Blood 170 mg/dL (60-115)
[2022-03-14] MEDS: cefTRIAXone sodium 1 GM in 0.9 % Sodium Chloride 50 ML IV (19:08)
--- NOTE | 2022-03-14 19:12 | PC.NURSE ---
patient was medicated, full bed change performed, pt again pulled out the pure wick. iv antibiotics given per order, floor was called to let them know that latuda was not given as it is not available on overflow but it shows it is available [place] [id number].
[2022-03-14 20:00] VITALS: BP 182/84; PULSE 81; RESP 17; TEMP 36.8; O2SAT 97
[2022-03-14 20:11] LABS: Glucose, Whole Blood 232 mg/dL (60-115)
[2022-03-14] MEDS: Prazosin HCL 1 MG CAPSULE PO (20:22)
[2022-03-14] MEDS: Acetaminophen 325 MG TABLET 650 MG PO (20:22)
[2022-03-14] MEDS: Atorvastatin Calcium 20 MG TABLET PO (20:22)
[2022-03-14] MEDS: QUEtiapine Fumarate 200 MG TABLET PO (20:22)
[2022-03-14] MEDS: Lurasidone HCl 40 MG TABLET PO (20:22)
[2022-03-15] VITALS: BP 142/65; PULSE 77; RESP 17; TEMP 36.5; O2SAT 94
[2022-03-15 03:34] VITALS: BP 140/60; PULSE 80; RESP 17; TEMP 36.7; O2SAT 94
[2022-03-15] MEDS: 0.9 % Sodium Chloride 1,000 ML 125 ML IVCONT (05:17)
--- NOTE | 2022-03-15 07:00 | CA_ITS ---
Transthoracic Echocardiogram Patient (Last, First, Middle): Kaylyn Cruz, Gender: Female Date of : 1965 Age: 57 Procedure Date: 03/15/2022 Procedure Type: Transthoracic Echocardiogram Location: S3E Height: 167.64 cm Weight: 90.72 kg BSA: 2.00 m2 Heart Rate: 78 bpm BP: 140 / 60 mmHg Turf Manager: JORGE Referring MD: Stephen Grimaldo MD Symptoms: cva Study Quality: Poor/Contrast ECG Rhythm: Sinus Conclusions: - The left ventricular systolic function is normal. The visually estimated ejection fraction is between 60-65%. - No obvious valvular pathology seen on this study. Findings Procedure Information Contrast agent, definity, is being given per protocol without apparent complications. Left Ventricle Normal left ventricular cavity size. There is mildly increased left ventricular wall thickness. The left ventricular systolic function is normal. The visually estimated ejection fraction is between 60-65%. There is no evidence of regional wall motion abnormalities. Diastolic function is normal for age. Right Ventricle Normal right ventricular cavity size and systolic function. Atria Both atria are normal in size. Aortic Valve The aortic valve was not well visualized. The aortic valve structure and function is likely normal. There is no aortic valve stenosis. There is no aortic valve regurgitation. Mitral Valve The mitral valve appears normal. There is no mitral valve regurgitation. There is no mitral valve stenosis. Pulmonic Valve The pulmonic valve is likely normal. Tricuspid Valve There is trace tricuspid valve regurgitation. There is no evidence of pulmonary hypertension. Great Vessels The asc aorta is normal in size. Venous The inferior vena cava is normal in size and collapses greater than 50% with inspiration. Pericardium/Pleural There is no evidence of pericardial effusion. Prior Study Comparison No prior study available for comparison. Recommendations, Care & Conclusions No obvious valvular pathology seen on this study. Measurements 2D Linear Measurements IVSd: 1.26 0.6-0.9/0.6-1.0 cm LVIDd: 4.28 3.9-5.3/4.2-5.9 cm LVIDd Index: 2.14 2.4-3.2/2.2-3.1 cm/m2 LVIDs: 2.57 2.0-3.6 cm LVPWd: 1.25 0.7-1.1 cm LA Diam: 3.60 2.7-3.8/3.0-4.0 cm LAIDs Index: 1.80 1.5-2.3 cm/m2 LV Mass: 244.03 67-162/88-224 g LV Mass Index: 122.01 43-95/49-115 g/m2 LVOT Diam: 1.90 3.0+(-)1.3 cm 2D Systolic Function EF 4C: 66.20 >55% EF 2C: 79.10 >55% EF BiP: 73.70 >55% Mitral Valve MV Pk E: 0.98 MV PK A: 1.20 MV Decel Time: 239.00 E/A: 0.80 E'Lateral: 7.18 E'Medial: 4.57 E/E' Med: 21.30 E/E' Lat: 13.60 PHT: 70.00 MVA PHT: 3.14 Decel Wirt: 4.08 Aortic Valve AoV Pk Ritchie: 1.55 AoV Mn Ritchie: 1.02 AoV VTI: 0.33 AoV Pk Grad: 10.00 Aov Mn Grad: 5.00 BAILEE Cont.VTI: 2.20 LVOT LVOT Pk Ritchie: 1.10 LVOT Mn Ritchie: 0.78 LVOT VTI: 0.25 LVOT Pk Grad: 5.00 LVOT Mn Grad: 3.00 LVOT Diam: 1.90 LVOT Area: 2.84 Diastolic Function MV Pk E: 0.98 MV Pk A: 1.20 E/A: 0.80 E'Medial: 4.57 E/E' Med: 21.30 E' Laterial: 7.18 E/E' Lat: 13.60 Right Ventricle TAPSE (mm): 25.90 TVS' Ritchie: 17.10 Tricuspid Valve TR Pk Ritchie: 1.89 TR Pk Grad: 14.00 RA Press: 3.00 RVSP: 17.00 Great Vessels Aorta Sinus of Valsalva: 3.30 2.0-3.5 cm Ao Asc: 3.20 2.1-3.4 cm Pulmonary Valve PV Pk Ritchie: 1.17 Peak PV Grad: 5.00 Updated in Other Vendor System with Status of Final Guillermo Fuentes MD electronically signed on 03/15/2022 2:56:16 PM with status of Final
[2022-03-15 07:16] LABS: Hematocrit 33.5 % (37.0-47.0); Hemoglobin 10.9 g/dl (12.0-16.0); Mean Corpuscular HGB Conc 32.5 g/dl (31.0-35.0); Mean Corpuscular Hemoglobin 27.3 pg (27.0-33.0); Mean Platelet Volume 11.4 fL (9.4-12.3); Platelet Count 243 X10*3/uL (160-400); Red Blood Count 3.99 X10*6/uL (4.20-5.50); Red Cell Distribution Width 15.9 % (11.0-16.0); White Blood Count 6.8 X10*3/uL (4.8-10.8)
[2022-03-15 07:36] VITALS: BP 173/75; PULSE 70; RESP 18; TEMP 36.6; O2SAT 95
[2022-03-15 07:37] LABS: Glucose, Whole Blood 177 mg/dL (60-115)
[2022-03-15] MEDS: Insulin Lispro 100 UNIT/ML 3 ML VIAL SUBCUT ×4 (07:53→22:15)
[2022-03-15] MEDS: Aspirin Enteric Coated 81 MG TABLET.DR PO (07:53)
[2022-03-15] MEDS: Multivitamin TABLET 1 TAB PO (07:54)
[2022-03-15] MEDS: LORazepam 0.5 MG TABLET PO (07:54)
[2022-03-15] MEDS: DULoxetine HCl 30 MG CAPSULE.DR PO ×2 (07:54→22:13)
[2022-03-15] MEDS: Pregabalin 100 MG CAPSULE PO ×3 (07:54→22:14)
[2022-03-15] MEDS: 0.9 % Sodium Chloride Flush 3 ML SYRINGE IVFLUSH (07:54)
[2022-03-15] MEDS: hydrALAZINE HCl 25 MG TABLET PO ×3 (07:54→22:14)
[2022-03-15 08:14] LABS: Anion Gap 14 (12-20); Blood Urea Nitrogen 13 mg/dL (9-16); Calcium 8.6 mg/dL (8.4-10.2); Carbon Dioxide 26 mmol/L (22-29); Chloride 105 mmol/L (96-108); Creatinine Clr Calc Pharmacy 65.6; Estimated Glomerular Filt Rate 53; Glucose Fasting 170 mg/dL (60-99); Potassium 4.4 mmol/L (3.3-5.1); Sodium 141 mmol/L (135-145)
[2022-03-15] MEDS: Acetaminophen 325 MG TABLET 650 MG PO (09:43)
--- NOTE | 2022-03-15 10:03 | HO.PM.IMPN ---
Subjective Subjective Date of Service: 03/15/22 Interval History: cc: ams interval history:resolved Physical Exam Vital Signs: Vital Signs: Last Vital Signs Temp 97.8 F 03/15/22 07:36 Pulse 70 03/15/22 07:36 Resp 18 03/15/22 07:36 BP 173/75 H 03/15/22 07:36 Pulse Ox 95 03/15/22 07:36 O2 Del Method 03/15/22 07:36 BMI result Body Mass Index 32.3 Neuro: Other: She was alert and awake with normal spontaneity of speech fluency comprehension and affect. She was moderate to severely obese. Visual montoya are full. Face was symmetrical. There was no focal weakness. Deep tendon reflexes are absent with flexor plantars per Objective Data Active Medications Acetaminophen (Acetaminophen 325 Mg Tablet) 650 mg PO Q6H PRN PRN Reason: Pain, Mild (Pain Scale 1-3) Last Admin: 03/15/22 09:43 Dose: 650 mg Documented By: FERNANDO Albuterol Sulfate (Albuterol Sulfate 90 Mcg 8 Gm Inhaler) 2 puff INHALE RQ6H PRN PRN Reason: Wheezing Aspirin (Aspirin Enteric Coated 81 Mg Tablet.) 81 mg PO DAILY [facility] Last Admin: 03/15/22 07:53 Dose: 81 mg Documented By: FERNANDO Atorvastatin Calcium (Atorvastatin Calcium 20 Mg Tablet) 20 mg PO BEDTIME [facility] Last Admin: 03/14/22 20:22 Dose: 20 mg Documented By: MARSHA Clonidine HCl (Clonidine Hcl 0.2 Mg Tablet) 0.2 mg PO TID PRN; Protocol PRN Reason: Anxiety Dextrose (Dextrose 50 % 25 Gm/50 Ml Syringe) 25 gm IVPUSH Q15M PRN; Protocol PRN Reason: per Hypoglycemia Standing Ord. Docusate Sodium (Docusate Sodium 100 Mg Capsule) 100 mg PO DAILY PRN PRN Reason: Constipation Duloxetine HCl (Duloxetine Hcl 30 Mg Capsule.) 30 mg PO BID [facility] Last Admin: 03/15/22 07:54 Dose: 30 mg Documented By: FERNANDO Enoxaparin Sodium (Enoxaparin Sodium 30 Mg/0.3 Ml Syringe) 30 mg SUBCUT BEDTIME [facility] Last Admin: 03/14/22 20:22 Dose: 30 mg Documented By: MARSHA Glucose (Glucose Gel 15 Gm Gel..Gram.) 15 gm PO Q15M PRN; Protocol PRN Reason: per Hypoglycemia Standing Ord. Hydralazine HCl (Hydralazine Hcl 25 Mg Tablet) 25 mg PO TID [facility]; Protocol Last Admin: 03/15/22 07:54 Dose: 25 mg Documented By: FERNANDO Ceftriaxone Sodium 1 gm/ (Sodium Chloride) 50 mls @ 100 mls/hr IV Q24H [facility] Last Infusion: 03/14/22 20:56 Dose: 0 mls/hr Documented By: MARSHA Sodium Chloride (Ns) 1,000 mls @ 80 mls/hr IVCONT .[id number] [facility] Last Admin: 03/15/22 05:17 Dose: 125 mls/hr Documented By: MARSHA Insulin Human Lispro (Insulin Lispro 100 Unit/Ml 3 Ml Vial) 0 unit SUBCUT QIDACHS [facility]; Protocol Last Admin: 03/15/22 07:53 Dose: 2 unit Documented By: FERNANDO Lorazepam (Lorazepam 0.5 Mg Tablet) 0.5 mg PO DAILY [facility] Last Admin: 03/15/22 07:54 Dose: 0.5 mg Documented By: FERNANDO Lurasidone HCl (Lurasidone Hcl 40 Mg Tablet) 40 mg PO DAILY@1800 [facility] Last Admin: 03/14/22 20:22 Dose: 40 mg Documented By: MARSHA Multivitamins/Vitamin C (Multivitamin Tablet) 1 tab PO DAILY [facility] Last Admin: 03/15/22 07:54 Dose: 1 tab Documented By: FERNANDO Ondansetron HCl (Ondansetron Hcl 4 Mg/2 Ml Vial) 4 mg IVPUSH Q8H PRN PRN Reason: Nausea and Vomiting Pharmacy Consult (Consult Rx Perform Med Rec) 1 each MISCELLANE ONCE PRN PRN Reason: Consult order Prazosin HCl (Prazosin Hcl 1 Mg Capsule) 1 mg PO BEDTIME [facility]; Protocol Last Admin: 03/14/22 20:22 Dose: 1 mg Documented By: MARSHA Pregabalin (Pregabalin 100 Mg Capsule) 100 mg PO TID [facility] Last Admin: 03/15/22 07:54 Dose: 100 mg Documented By: FERNANDO Quetiapine Fumarate (Quetiapine Fumarate 200 Mg Tablet) 200 mg PO BEDTIME [facility] Last Admin: 03/14/22 20:22 Dose: 200 mg Documented By: MARSHA Sodium Chloride (0.9 % Sodium Chloride Flush 3 Ml Syringe) 3 ml IVFLUSH QSHIFT [facility] Last Admin: 03/15/22 07:54 Dose: 3 ml Documented By: FERNANDO Labs CBC & Chem 7: 03/15/22 05:59 03/15/22 05:59 Labs: Laboratory Results - last 24 hr 03/14/22 03/14/22 03/14/22 12:32 17:44 20:07 MCV MCH MCHC RDW Plt Count MPV Absolute Nucleated RBC Nucleated RBC % (auto) Anion Gap Estim Creat Clear Calc Estimated GFR POC Glucose 237 H 170 H 232 H Fasting Glucose Calcium 03/15/22 03/15/22 03/15/22 05:59 05:59 07:33 MCV 84.0 MCH 27.3 MCHC 32.5 RDW 15.9 Plt Count 243 MPV 11.4 Absolute Nucleated RBC 0.000 Nucleated RBC % (auto) 0.0 Anion Gap 14 Estim Creat Clear Calc 65.6 Estimated GFR 53 POC Glucose 177 H Fasting Glucose 170 H Calcium 8.6 D Microbiology Microbiology Results: Microbiology 03/13/22 17:30 Blood Culture - Preliminary Blood - Venous No growth after 24 hours. 03/13/22 17:30 Blood Culture - Preliminary Blood - Venous No growth after 24 hours. 03/13/22 Unknown Urine Culture - Preliminary Urine clean catch - Urine turner top Culture in progress. Assessment and Plan (1) Altered mental status: Status: Acute Plan 57-year-old female with a PMH significant for?asthma, bipolar disorder, diabetes, HTN, IBS, peripheral neuropathy and polysubstance abuse who presents to the ED via EMS with altered mental status. Pt was found to have rhabdomyolysis, DANY, and UTI.? Patient be admitted hospital for treatment with IVF and IV antibiotics. Acute metabolic encephalopathy Likely multifactorial and due to her UTI, rhabdomyolysis, DANY Less likely due to subacute infarct neuro appreciated - check cta head and neck, echo asa, statin DANY Likely secondary to rhabdomyolysis IVF resolved Hypomagnesemia replaced UTI Ceftriaxone, day 3/5 Anemia, chronic Appears stable, at baseline Asthma, moderate persistent with acute decompensation Albuterol inhaler p.r.n. for wheezing Diabetes Hold home meds SSI obesity weight loss Full Code DVT Prophylaxis: Lovenox reason for continued hospitalization: cva work up in progress Time Spent With Patient Time: Total time managing care of this patient today ____ minutes. Quality Stroke Does the patient have a stroke diagnosis?: No VTE Prior VTE?: No VTE Risk Level:: Medical - moderate - high VTE Device Contraindication: Treatment Not Indicated VTE Drug Contraindication: N/A - Med Ordered
[2022-03-15] MEDS: oxyCODONE HCl Immed Release 5 MG TABLET PO ×3 (10:37→19:54)
[2022-03-15] MEDS: iohexoL 350 MG/ML 75 ML INFUS..BTL 70 ML IV (11:56)
[2022-03-15 12:16] LABS: Glucose, Whole Blood 229 mg/dL (60-115)
--- NOTE | 2022-03-15 14:29 | MHC.CM.PN ---
IMM 03/15/22, EMR REVIEWED, CM MET W/PT WHO IS A&O AND ABLE TO ANSWER ALL QUESTIONS, PT REPRTS SHE CONT'S TO LIVE W/[facility], DIABETIC SUPPLIES AND REPORTS SHE CHECKS HER BS'S EVERY MORNING, PT ALSO REPORTS SHE IS ACTIVE W/[facility] 2-3 TIMES A WEEK., REFERRAL FOR RESUMP OF CARE PLACED. PT VERIFIES HCP ON FILE, PCP [facility]. ANTIC D/C TOMORROW HOME W/[facility], T MAY NEED TRANSPORT HOME
[2022-03-15] MEDS: cloNIDine HCL 0.2 MG TABLET PO (14:42)
[2022-03-15 15:25] VITALS: BP 188/89; PULSE 76; RESP 18; TEMP 36.3; O2SAT 95
[2022-03-15 16:11] LABS: Glucose, Whole Blood 186 mg/dL (60-115)
[2022-03-15] MEDS: 0.9 % Sodium Chloride 1,000 ML 80 ML IVCONT (17:18)
[2022-03-15] MEDS: cefTRIAXone sodium 1 GM in 0.9 % Sodium Chloride 50 ML IV (17:18)
[2022-03-15] MEDS: Lurasidone HCl 40 MG TABLET PO (17:19)
[2022-03-15 20:00] VITALS: BP 169/76; PULSE 76; RESP 15; TEMP 36.3; O2SAT 94
[2022-03-15 21:01] LABS: Glucose, Whole Blood 298 mg/dL (60-115)
[2022-03-15] MEDS: oxyCODONE HCl Immed Release 5 MG TABLET 10 MG PO (22:14)
[2022-03-15] MEDS: Atorvastatin Calcium 20 MG TABLET PO (22:14)
[2022-03-15] MEDS: QUEtiapine Fumarate 200 MG TABLET PO (22:14)
[2022-03-15] MEDS: Enoxaparin Sodium 30 MG/0.3 ML SYRINGE SUBCUT (22:16)
[2022-03-15] MEDS: Prazosin HCL 1 MG CAPSULE PO (22:21)
[2022-03-15 23:43] VITALS: BP 129/59; PULSE 74; RESP 17; TEMP 36.3; O2SAT 93
[2022-03-16 03:41] VITALS: BP 118/54; PULSE 71; RESP 17; TEMP 36.3; O2SAT 93
[2022-03-16] MEDS: oxyCODONE HCl Immed Release 5 MG TABLET PO ×2 (06:00→10:45)
[2022-03-16 07:12] VITALS: BP 116/56; PULSE 71; RESP 18; TEMP 36.1; O2SAT 95
[2022-03-16 07:45] LABS: Glucose, Whole Blood 189 mg/dL (60-115)
[2022-03-16] MEDS: DULoxetine HCl 30 MG CAPSULE.DR PO (08:06)
[2022-03-16] MEDS: LORazepam 0.5 MG TABLET PO (08:06)
[2022-03-16] MEDS: hydrALAZINE HCl 25 MG TABLET PO (08:06)
[2022-03-16] MEDS: Pregabalin 100 MG CAPSULE PO (08:06)
[2022-03-16] MEDS: Multivitamin TABLET 1 TAB PO (08:07)
[2022-03-16] MEDS: Insulin Lispro 100 UNIT/ML 3 ML VIAL SUBCUT (08:07)
[2022-03-16] MEDS: 0.9 % Sodium Chloride Flush 3 ML SYRINGE IVFLUSH (08:07)
[2022-03-16] MEDS: Aspirin Enteric Coated 81 MG TABLET.DR PO (08:07)
--- NOTE | 2022-03-16 09:33 | MHC.CM.PN ---
PER NSG PT TO BE MEDICALLY CLEARED FOR D/C HOME TODAY, PER PT SHE CAN DO STAIRS AND WOULD LIKE C SHUTTLE HOME, PER [facility] SHUTTLE THEY CAN TRANSPORT AT 12:45PM AND PT SHOULD BE DOWNSTAIRS 5MIN EARLY. PT WILL RESUME W/[facility].
--- NOTE | 2022-03-16 09:39 | PM.DS ---
DS: Providers Provider Date of Service: 03/16/22 Date of admission: 03/13/22 23:03 Primary care physician: Bri Milligan CNP Consults: 03/14/22 13:09 Consult to Neurology Routine Consulting Provider: [facility] Reason for consultation: subacute infarct with expressive aphasia DS: Diagnosis Discharge Diagnosis (1) Altered mental status: Status: Acute DS: Summary Hospital Course Hospital Course: from initial hpi: Chief Complaint: AMS Pt is a 57-year-old female with a PMH significant for?asthma, bipolar disorder, diabetes, HTN, IBS, peripheral neuropathy and polysubstance abuse who presents to the ED via EMS with altered mental status.? Patient cannot provide a meaningful HPI so HPI comes from a conversation with the ED provider who spoke with the patient's roommate.? According to the roommate patient has been behaving erratically for the past few weeks:? falling repeatedly, walking a shuffling gait, speaking nonsensically, peeing on the floor.? Patient's condition worsened significantly in the past 1-2 days, thus prompting the roommate's calling EMS. Of note, patient was hospitalized numerous times in 2021 for similar presentations of unresponsiveness and altered mental status due to fentynyl overdoses..? In the ED labs were significant for leukocytosis of 12.7, H&H 10.4/31.5, creatinine of 3.03, lactic acid 2.3, and hypomagnesemia of 1.4.? UA was positive for UTI.? Tox screen positive for opioids. CT?of head showed focal hypodensities in the right occipital lobe that are not significantly changed compared to 03/07/2022, suggesting subacute to chronic infarction.? MRI of the brain showed no acute intracranial abnormality and small area of subacute infarction in the right occipital lobe.? CT of abdomen pelvis showed no evidence of acute intra-abdominal findings.? EKG showed normal sinus rhythm with no acute ischemic changes. Pt was treated with 3L NS and ceftriaxone. Pt will be admitted to the hospital for treatment evaluation of AMS, rhabdomyolysis, and UTI. hospital course: patient was admitted For metabolic encephalopathy likely multifactorial due to urinary tract infection, rhabdomyolysis, acute kidney injury, subacute CVA. She was treated with empiric ceftriaxone, IV fluids, aspirin, statin. Her DANY resolved. urine culture was unremarkable and antibiotics were discontinued. She was seen by neurology recommended echocardiogram which was unremarkable CTA head and neck which was unremarkable. Patient will continue aspirin statin. She had some hypomagnesemia that was replaced. She has chronic anemia which is stable. She has moderate persistent asthma with acute decompensation which improved with albuterol inhaler alone. For diabetes she was continued on insulin. For obesity weight loss is recommended. Patient is feeling better will be discharged home. Time Spent with Patient Time attestation: Total time managing care of this patient today ____ minutes. Discharge coordination time: Greater than 30 minutes Quality: Safe Use of Opioids Does Pt have an Active Cancer Diagnosis on the Problem List?: No Quality: Stroke Does the patient have a stroke diagnosis?: No Physical Exam Vital Signs: Vital Signs: Last Vital Signs Temp 97.0 F 03/16/22 07:12 Pulse 71 03/16/22 07:12 Resp 18 03/16/22 07:12 BP 116/56 L 03/16/22 07:12 Pulse Ox 95 03/16/22 07:12 O2 Del Method 03/16/22 07:12 BMI result Body Mass Index 32.3 General: AO X 3, no acute distress Resp: CTA bilateral, no accessory muscles used CVS: S1,S2,RRR GI: soft, non tender, non distended Neuro: motor grossly intact, alert Psych: appropriate affect, appropriate insight DS: Data Data Completed and Pending Completed studies during hospitalization [Text1]: Procedures Detoxification Services for Substance Abuse Treatment (07/15/21) Introduction of Vasopressor into Peripheral Vein, Percutaneous Approach (07/15/21) Labs on day of discharge: Laboratory Results - last 24 hr 03/15/22 03/15/22 03/15/22 12:13 16:08 20:57 POC Glucose 229 H 186 H 298 H 03/16/22 07:16 POC Glucose 189 H Preliminary micro results at discharge 03/13/22 17:30 Blood Culture - Preliminary Blood - Venous No growth after 48 hours. 03/13/22 17:30 Blood Culture - Preliminary Blood - Venous No growth after 48 hours. Discharge Plan Discharge Anticipated Discharge Date/Time: 03/16/22 09:31 Patient Disposition: Home, Self-Care Discharge Diagnosis: cva Referrals: [facility] [Outside] - 1 Day (RESUMPTION OF SERVICES) Bri Milligan CNP [Primary Care Provider] - 1 Week Discharge Medications: Continued lorazepam 0.5 mg Tablet 0.5 mg PO DAILY metformin 1,000 mg tablet 1,000 mg PO BIDWM multivitamin Tablet 1 tab PO DAILY atorvastatin 20 mg tablet 20 mg PO DAILY duloxetine 30 mg capsule,delayed release(DR/EC) 30 mg PO BID Januvia 100 mg tablet 100 tab PO BEDTIME Latuda 40 mg Tablet 40 mg PO DAILY@1800 Qty: 30 0RF quetiapine 200 mg tablet 1 tab PO BEDTIME hydralazine 25 mg tablet 1 tab PO TID clonidine HCl 0.2 mg tablet 1 tab PO TID PRN (Reason: Anxiety) pregabalin 100 mg capsule 1 cap PO TID prazosin 1 mg capsule 1 mg PO BEDTIME Protocol: Hold for SBP< HOLD for SBP < : 90 Discharge Orders: Discharge Order (Routine); Ordered 03/16/22 Ordered By: Stephen Grimaldo Diet: Advance to usual diet Activity on Discharge: As tolerated Stand Alone Forms: Patient Portal Discharge page Care Plan Goals: recovery Health Concerns: cva Plan of Treatment: asa, statin Assessment: see above
[2022-03-16] MEDS: Acetaminophen 325 MG TABLET 650 MG PO (10:44)
[2022-03-26 09:28] LABS: Alcohol, Ethyl Urine Screen NEGATIVE
== END 2022-03-16 12:06 | disposition home or self-care (01) | DRG 64 ==
LOC: HO.ED 20:51 → HO.EDOVER 23:18 → HO.S3 03-14 17:29
PROVIDERS: Physician Assistant; Student in an Organized Health Care Education/Training Program; Admitting Provider Student in an Organized Health Care Education/Training Program; Emergency Provider Internal Medicine; PCP Nurse Practitioner Family; Visit Provider Internal Medicine
DX: I63.531 Cerebral infarction due to unspecified occlusion or stenosis of right posterior cerebral artery (principal); G93.41 Metabolic encephalopathy; M62.82 Rhabdomyolysis; J45.41 Moderate persistent asthma with (acute) exacerbation; N17.9 Acute kidney failure, unspecified; N39.0 Urinary tract infection, site not specified; R47.01 Aphasia; F31.9 Bipolar disorder, unspecified; E11.42 Type 2 diabetes mellitus with diabetic polyneuropathy; F17.210 Nicotine dependence, cigarettes, uncomplicated; E83.42 Hypomagnesemia; E66.01 Morbid (severe) obesity due to excess calories; D64.9 Anemia, unspecified; Z68.32 Body mass index [BMI] 32.0-32.9, adult; Z20.822 Contact with and (suspected) exposure to COVID-19; Z71.6 Tobacco abuse counseling; Z88.2 Allergy status to sulfonamides; Z88.5 Allergy status to narcotic agent; Z88.8 Allergy status to other drugs, medicaments and biological substances; Z79.82 Long term (current) use of aspirin; Z79.84 Long term (current) use of oral hypoglycemic drugs; Z79.899 Other long term (current) drug therapy
CPT/HCPCS: 36415; 70450; 70496; 70498; 70551; 74176; 80048; 80053; 80061; 80143; 80179; 80307; 81001; 82077; 82550; 82947; 83605; 83735; 84484; 85025; 85027; 87040; 87086; 87635; 93005; 93306; 99285; J0696; J1650; J3475; Q9957; Q9967

== ENCOUNTER 2022-04-05 20:32 | Inpatient (IN) | payer OTHER, SELFPAY ==
--- NOTE | 2022-04-05 | ECG_ITS ---
Test Reason : AMS Blood Pressure : / mmHG Vent. Rate : 053 BPM Atrial Rate : 053 BPM P-R Int : 174 ms QRS Dur : 100 ms QT Int : 478 ms P-R-T Axes : 030 010 023 degrees QTc Int : 448 ms Sinus bradycardia RSR' or QR pattern in V1 suggests right ventricular conduction delay Borderline ECG When compared with ECG of 13-MAR-2022 16:29, No significant change was found Referred By: Generic ED Physician Electronically Signed By:LOUISE URRUTIA
--- NOTE | ~2022-04-05 | CT_ITS ---
EXAMINATION: CT head/brain wo IV con CLINICAL INFORMATION: Reason for Exam Acute AMS, recent CVA COMPARISON: MR brain 03/13/2022, CT brain 03/13/2022 TECHNIQUE: Contiguous axial imaging was performed from the skull base to vertex without intravenous contrast. Sagittal and coronal reformatted images were obtained. This CT examination was performed using dose optimization techniques as appropriate, variously including the following: * Automated exposure control * Adjustment of mA and/or kV according to patient size (this includes techniques or standardized protocols for targeted exams where dose is matched to indication/reason for exam; i.e. extremities or head) Use of iterative reconstruction technique DLP: 835 mGy-cm FINDINGS: Right frontal soft tissue scalp swelling. No acute osseous abnormality. The mastoid air cells and visualized portions of the paranasal sinuses are well aerated. There is no evidence of acute intracranial hemorrhage or territorial infarction. No abnormal mass effect or midline shift is seen. Similar appearance of hypodensity and loss of turner-white matter differentiation involving the right occipital lobe compatible with known prior infarct.No extra-axial fluid collections are identified. No hydrocephalus. No significant volume loss. There is no abnormal attenuation within the brain parenchyma. CT/CT head/brain wo IV con IMPRESSION: 1. Similar appearance of hypodensity and loss of turner-white matter differentiation involving the right occipital lobe compatible with known prior infarct. No acute intracranial abnormality.
[2022-04-05 20:34] VITALS: BP 140/98; BP 86/42; PULSE 57; PULSE 70; RESP 16; TEMP 36.9; O2SAT 94; BMI 32.8
--- NOTE | 2022-04-05 20:45 | PC.NURSE ---
PD was called by neighbors for C/O PT wandering the halls. PT A&O to self, repetitive, calm and cooperative. Denies any pain, denies SI/HI, denies auditory hallucinations, denies visual hallucinations. Denies any drug use. PERRLA. LS clear. + bowel sounds x 4. PT changed over to hospital gown. Blood work collected and sent to lab.
[2022-04-05 21:03] LABS: Glucose, Whole Blood 201 mg/dL (60-115)
[2022-04-05 21:15] LABS: Basophils Absolute Auto 0.1 X10*3/uL (0.0-0.2); Basophils Percent Auto 0.7 % (0-2); Eosinophils Percent Auto 0.3 % (0-4); Hematocrit 40.1 % (37.0-47.0); Hemoglobin 13.2 g/dl (12.0-16.0); Imm Gran Abs Auto 0.03 X10*3/uL (0.00-0.03); Imm Gran Pct Auto 0.3 % (0.0-0.4); Lymphocytes Absolute Auto 2.4 X10*3/uL (1.2-4.9); Lymphocytes Percent Auto 20.2 % (20-40); MANUAL DIFF FLAG NO; Mean Corpuscular HGB Conc 32.9 g/dl (31.0-35.0); Mean Corpuscular Hemoglobin 27.2 pg (27.0-33.0); Mean Corpuscular Volume 82.7 fL (80.0-98.0); Mean Platelet Volume 11.2 fL (9.4-12.3); Monocytes Absolute Auto 0.5 X10*3/uL (0.1-1.2); Monocytes Percent Auto 4.5 % (2-11); Neutrophils Absolute Auto 8.7 x10*3/uL (2.0-8.3); Platelet Count 344 X10*3/uL (160-400); Red Blood Count 4.85 X10*6/uL (4.20-5.50); Red Cell Distribution Width 16.2 % (11.0-16.0); White Blood Count 11.7 X10*3/uL (4.8-10.8)
[2022-04-05 21:16] VITALS: BP 90/45; PULSE 52; RESP 12; O2SAT 99
--- NOTE | 2022-04-05 21:16 | PC.NURSE ---
Unable to get accurate BP reading. Manual BP 86/40. Provider notified. PT placed on reverse trendelenburg. BP 90/45. IV established, fluids started.
--- NOTE | 2022-04-05 21:22 | ED.AMS ---
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/22 brought by EMS for patient has been walking in the hallway confused neighbors called the EMS patient denies any complaints answering with single word denies any use of opiates able to move all 4 extremities denies any headache no nausea no vomiting no diarrhea no fever but answering with very limited words blood pressure by EMS was 140/90 when patient arrived blood pressure was 86/40 Related Data Home Medications Medication Instructions Recorded Confirmed lorazepam 0.5 mg tablet 0.5 mg PO DAILY 07/15/21 03/13/22 metformin 1,000 mg tablet 1,000 mg PO BIDWM 09/03/21 03/13/22 multivitamin 1 tab PO DAILY 09/03/21 03/13/22 atorvastatin 20 mg tablet 20 mg PO DAILY 01/15/22 03/13/22 duloxetine 30 mg capsule,delayed 30 mg PO BID 01/15/22 03/13/22 release sitagliptin phosphate 100 mg 100 tab PO BEDTIME 01/15/22 03/13/22 tablet (Januvia) clonidine HCl 0.2 mg tablet 1 tab PO TID PRN Anxiety 03/08/22 03/13/22 hydralazine 25 mg tablet 1 tab PO TID 03/08/22 03/13/22 prazosin 1 mg capsule 1 mg PO BEDTIME 03/08/22 03/13/22 pregabalin 100 mg capsule 1 cap PO TID 03/08/22 03/13/22 quetiapine 200 mg tablet 1 tab PO BEDTIME 03/08/22 03/13/22 Previous Rx's Medication Instructions Recorded lurasidone 40 mg tablet (Latuda) 40 mg PO DAILY@1800 #30 tabs 01/30/22 aspirin 81 mg tablet,delayed 81 mg PO DAILY #30 tabs 03/16/22 release Allergies Allergy/AdvReac Type Severity Reaction Status Date / Time morphine [MORPHINE] Allergy Unknown RASH, vomit Verified 01/15/22 00:48 prednisone Allergy Unknown hives Verified 01/15/22 00:48 Sulfa (Sulfonamide Allergy Unknown UNKNOWN, Verified 01/15/22 00:48 Antibiotics) hives [SULFA (SULFONAMIDE ANTIBIOTICS)] Review of Systems Review of Systems: Yes all other systems are reviewed and are negative [facility] Past Medical History Medical History Asthma Bipolar disorder Chronic pain Diabetes Hypertension IBS (irritable bowel syndrome) Opioid use disorder Peripheral neuropathy Polysubstance abuse Seizure Surgical History History of appendectomy Social History Social History Household Members: Unknown / Unable to assess Household Members Other:: roommate Housing: Unknown / Unable to assess Do you presently have visiting nurse or other home services: No Unable to assess alcohol history related to: Refusing to respond Alcohol intake: unknown Patient Tobacco Use Status: Refuse Tobacco use screen Tobacco use type: Cigarette Cigarette Packs Per Day: 1 Cigarettes Per Day: 20.0 Use of substances other than those prescribed or required for medical reasons: Refusing to respond Substance Use Type: Painkillers Advance Directives: Yes Advance Directives on File: Yes Advance Directives Date on File: 09/03/21 Patient : No service: No Current occupational status: disabled Physical Exam ED Vital Signs: Vital Signs - 24 hr 04/05/22 20:34 04/05/22 21:16 04/05/22 22:11 Temperature 98.4 F Pulse Rate 57 52 52 Respiratory Rate 16 12 12 Blood Pressure 86/42 L 90/45 L 90/46 L Pulse Oximetry 94 99 98 Oxygen Delivery Method Room Air Room Air Room Air BMI result Body Mass Index 32.8 Appearance: Alert. Oriented X2-3. No acute distress. Obese Eyes: PERRLA, No Nystagmus ENT: Pharynx normal. Oral Mucosa moist Neck: Normal inspection. Neck supple. CVS: Normal heart rate and rhythm. Pulses normal. Respiratory: No respiratory distress. Equal air entry bilateral, no wheezing/rales/rhonchi Abdomen: Soft and nontender. Bowel sounds are present, no mass palpable, no CVA tenderness Skin: Skin warm and dry. Normal skin color. Normal skin turgor. Extremities: No lower extremity edema. No calf tenderness Neuro: Oriented X 2-3. No motor deficit. No sensory deficit.No cerebellar signs , cranial nerves II-XII intact Medications Administered Generic Name Dose Route Start Last Admin Trade Name Freq PRN Reason Stop Dose Admin Heparin Sodium (Porcine) 5,000 unit 04/06/22 00:45 04/06/22 02:02 Heparin Sodium,Porcine 5,000 Unit/Ml Vial SUBCUT 5,000 unit Q12H SARMAD Administration Lactated Ringer's 1,000 mls @ 100 mls/hr 04/06/22 00:45 04/06/22 02:02 Lr IVCONT 100 mls/hr .Q10H SARMAD Administration Discontinued Medications Generic Name Dose Route Start Last Admin Trade Name Freq PRN Reason Stop Dose Admin Sodium Chloride 1,000 mls @ 999 mls/hr 04/05/22 21:47 04/05/22 23:55 Ns IV 04/05/22 22:47 Infused .Q1H1M ONE Infusion Sodium Chloride 1,000 mls @ 999 mls/hr 04/05/22 23:34 04/06/22 01:50 Ns IV 04/06/22 00:34 Infused .Q1H1M ONE Infusion Lorazepam 1 mg 04/05/22 23:38 04/05/22 23:47 Lorazepam 2 Mg/Ml Vial IVPUSH 04/05/22 23:39 1 mg ONCE ONE Administration Medical Decision Making Medical Decision Making [facility] Narrative: Patient has DANY with metabolic encephalopathy will admit patient for IV hydration and follow-up with nephrology patient has similar situation when she was admitted in 03/13/[address] scan at that time which was negative for any obstructive lesion Lab Data [facility] Lab Attestation statement: I reviewed the patient's lab results. 04/05/22 21:06 04/05/22 21:06 Labs: Lab Results 04/05/22 04/05/22 04/05/22 Range/Units 00:08 20:57 21:06 WBC 11.7 H (4.8-10.8) X10*3/uL RBC 4.85 D (4.20-5.50) X10*6/uL Hgb 13.2 D (12.0-16.0) g/dl Hct 40.1 (37.0-47.0) % MCV 82.7 (80.0-98.0) fL MCH 27.2 (27.0-33.0) pg MCHC 32.9 (31.0-35.0) g/dl RDW 16.2 H (11.0-16.0) % Plt Count 344 D (160-400) X10*3/uL MPV 11.2 (9.4-12.3) fL Immature Gran % (Auto) 0.3 (0.0-0.4) % Neut % (Auto) 74.0 H (45-73) % Lymph % (Auto) 20.2 (20-40) % [place] % (Auto) 4.5 (2-11) % Eos % (Auto) 0.3 (0-4) % Baso % (Auto) 0.7 (0-2) % Lymph # (Auto) 2.4 (1.2-4.9) X10*3/uL [place] # (Auto) 0.5 (0.1-1.2) X10*3/uL Eos # (Auto) 0.0 (0.0-0.4) X10*3/uL Baso # (Auto) 0.1 (0.0-0.2) X10*3/uL Abs Immat Gran (auto) 0.03 (0.00-0.03) X10*3/uL Absolute Neuts (auto) 8.7 H (2.0-8.3) x10*3/uL Absolute Nucleated RBC 0.000 (0.0-0.012) X10*3/uL Nucleated RBC % (auto) 0.0 (0.0-0.2) /100WBC Sodium (135-145) mmol/L Potassium (3.3-5.1) mmol/L Chloride (96-108) mmol/L Carbon Dioxide (22-29) mmol/L Anion Gap (12-20) BUN (9-16) mg/dL Creatinine (0.5-1.4) mg/dL Estim Creat Clear Calc Estimated GFR POC Glucose 201 H (60-115) mg/dL Random Glucose (60-115) mg/dL Lactic Acid (0.5-2.0) mmol/L Calcium (8.4-10.2) mg/dL Total Bilirubin (0.0-1.0) mg/dL Direct Bilirubin (0.0-0.5) mg/dL AST (5-31) U/L ALT (0-31) U/L Alkaline Phosphatase (39-117) U/L Total Protein (6.5-8.0) g/dL Albumin (3.5-5.0) g/dL Ethyl Alcohol mg/dL COVID-19 (MARLYS) Negative (Negative) COVID-19 Clin Com See Note 04/05/22 04/05/22 04/05/22 Range/Units 21:06 21:06 21:06 WBC (4.8-10.8) X10*3/uL RBC (4.20-5.50) X10*6/uL Hgb (12.0-16.0) g/dl Hct (37.0-47.0) % MCV (80.0-98.0) fL MCH (27.0-33.0) pg MCHC (31.0-35.0) g/dl RDW (11.0-16.0) % Plt Count (160-400) X10*3/uL MPV (9.4-12.3) fL Immature Gran % (Auto) (0.0-0.4) % Neut % (Auto) (45-73) % Lymph % (Auto) (20-40) % [place] % (Auto) (2-11) % Eos % (Auto) (0-4) % Baso % (Auto) (0-2) % Lymph # (Auto) (1.2-4.9) X10*3/uL [place] # (Auto) (0.1-1.2) X10*3/uL Eos # (Auto) (0.0-0.4) X10*3/uL Baso # (Auto) (0.0-0.2) X10*3/uL Abs Immat Gran (auto) (0.00-0.03) X10*3/uL Absolute Neuts (auto) (2.0-8.3) x10*3/uL Absolute Nucleated RBC (0.0-0.012) X10*3/uL Nucleated RBC % (auto) (0.0-0.2) /100WBC Sodium 139 (135-145) mmol/L Potassium 4.8 (3.3-5.1) mmol/L Chloride 101 (96-108) mmol/L Carbon Dioxide 21 L (22-29) mmol/L Anion Gap 22 H (12-20) BUN 52 H (9-16) mg/dL Creatinine 4.22 H* (0.5-1.4) mg/dL Estim Creat Clear Calc 16.6 Estimated GFR 11 POC Glucose (60-115) mg/dL Random Glucose 211 H (60-115) mg/dL Lactic Acid 1.3 (0.5-2.0) mmol/L Calcium 8.7 (8.4-10.2) mg/dL Total Bilirubin 0.6 (0.0-1.0) mg/dL Direct Bilirubin < 0.2 (0.0-0.5) mg/dL AST 59 H (5-31) U/L ALT 33 H (0-31) U/L Alkaline Phosphatase 96 (39-117) U/L Total Protein 6.9 (6.5-8.0) g/dL Albumin 4.0 (3.5-5.0) g/dL Ethyl Alcohol < 10 mg/dL COVID-19 (MARLYS) (Negative) COVID-19 Clin Com Independent Interpretation I performed an independent interpretation of an: EKG Interpretation: Sinus bradycardia heart rate 53 beats per minute no acute ST depression no acute ischemia Discharge Plan Discharge Clinical Impression: Acute renal failure, Altered mental status, Acute metabolic encephalopathy Patient Disposition: Admitted As Inpatient Interventions: Admission Worksheet (ED) Last Done: 04/06/22 02:58 Discharge Date/Time: 04/06/22 02:59
[2022-04-05 21:40] LABS: Lactic Acid 1.3 mmol/L (0.5-2.0)
[2022-04-05 21:42] LABS: Ethanol < 10 mg/dL
[2022-04-05 21:47] LABS: Anion Gap 22 (12-20); Blood Urea Nitrogen 52 mg/dL (9-16); Calcium 8.7 mg/dL (8.4-10.2); Carbon Dioxide 21 mmol/L (22-29); Chloride 101 mmol/L (96-108); Creatinine Clr Calc Pharmacy 16.6; Estimated Glomerular Filt Rate 11; Glucose Random 211 mg/dL (60-115); Potassium 4.8 mmol/L (3.3-5.1); Sodium 139 mmol/L (135-145)
[2022-04-05] MEDS: 0.9 % Sodium Chloride 1,000 ML 999 ML IV ×2 (22:03→23:50)
[2022-04-05 22:10] LABS: Alanine Aminotransferase 33 U/L (0-31); Alkaline Phosphatase 96 U/L (39-117); Aspartate Amino Transferase 59 U/L (5-31); Bilirubin Direct < 0.2 mg/dL (0.0-0.5); Bilirubin Total 0.6 mg/dL (0.0-1.0); Total Protein 6.9 g/dL (6.5-8.0)
[2022-04-05 22:11] VITALS: BP 90/46; PULSE 52; RESP 12; O2SAT 98
[2022-04-05] MEDS: LORazepam 2 MG/ML VIAL 1 MG IVPUSH (23:47)
[2022-04-06 00:14] LABS: COVID-19 Test Negative (Negative); IDNOW Serial# BCCEAD1C
--- NOTE | 2022-04-06 00:39 | P.HPHOSP_ITS ---
History of Present Illness Date of Service: 04/06/22 Chief Complaint: Confusion 57-year-old female with past medical history of asthma, bipolar disorder, diabetes, hypertension, IBS, peripheral neuropathy, polysubstance abuse, seizure disorder, who was discharged recently on 03/16, returns to the hospital with rep orted confusion. Patient is awake, but I am unable to assess for orientation as she is not answering my questions clearly. She is shaking her head yes or no but not using words. The only time she actually verbalized her disc content was when we asked her for a [place] catheter as she was not given us a urine and had more than 400 cc of urine and bladder. She started screaming no and crying. History is therefore obtained from ED physician. It seems that patient was found walking in the halls, police department was called by the neighbors, and therefore patient was brought in to the hospital. Unable to obtain review of system when I ask her there is question she each shakes her head no to chest pain, no to abdominal pain, no no 2 nausea or vomiting. She shakes her head no to eating and drinking appropriately. On arrival to the ED patient hemodynamically stable with a blood pressure of 86/42 that significantly improved after receiving 2 L of IV fluids. Labs are significant for WBC count of 11.7 creatinine of 4.22, BUN of 52, AST of 59, ALT of 33, seems to have been elevated on previous admission Urine is positive for leukocyte Estrace, WBC with minimal squamous cells urine drug screen positive for fentanyl and negative for alcohol level Has CT shows similar appearance of hypodensity and loss of turner-white matter differentiation involving the right occipital lobe compatible with known prior history of infarct Given patient's encephalopathy patient will be admitted for further management Review of Systems Review of Systems: Yes Unobtainable due to mental condition and Unobtainable due to mental status [facility] Medical History Asthma Bipolar disorder Chronic pain Diabetes Hypertension IBS (irritable bowel syndrome) Opioid use disorder Peripheral neuropathy Polysubstance abuse Seizure Surgical History History of appendectomy Social History Household Members: Unknown / Unable to assess Household Members Other:: roommate Housing: Unknown / Unable to assess Do you presently have visiting nurse or other home services: No Unable to assess alcohol history related to: Refusing to respond Alcohol intake: unknown Patient Tobacco Use Status: Refuse Tobacco use screen Tobacco use type: Cigarette Cigarette Packs Per Day: 1 Cigarettes Per Day: 20.0 Use of substances other than those prescribed or required for medical reasons: Refusing to respond Substance Use Type: Painkillers Advance Directives: Yes Advance Directives on File: Yes Advance Directives Date on File: 09/03/21 Patient : No service: No Current occupational status: disabled Meds Allergies Allergy/AdvReac Type Severity Reaction Status Date / Time morphine [MORPHINE] Allergy Unknown RASH, vomit Verified 01/15/22 00:48 prednisone Allergy Unknown hives Verified 01/15/22 00:48 Sulfa (Sulfonamide Allergy Unknown UNKNOWN, Verified 01/15/22 00:48 Antibiotics) hives [SULFA (SULFONAMIDE ANTIBIOTICS)] Home Medications Medication Instructions Recorded Confirmed Last Taken Type lorazepam 0.5 mg tablet 0.5 mg PO DAILY 07/15/21 03/13/22 03/13/22 History metformin 1,000 mg tablet 1,000 mg PO BIDWM 09/03/21 03/13/22 03/13/22 History multivitamin 1 tab PO DAILY 09/03/21 03/13/22 03/13/22 History atorvastatin 20 mg tablet 20 mg PO DAILY 01/15/22 03/13/22 03/13/22 History duloxetine 30 mg capsule,delayed 30 mg PO BID 01/15/22 03/13/22 03/13/22 History release sitagliptin phosphate 100 mg 100 tab PO BEDTIME 01/15/22 03/13/22 03/12/22 History tablet (Januvia) clonidine HCl 0.2 mg tablet 1 tab PO TID PRN Anxiety 03/08/22 03/13/22 03/07/22 History hydralazine 25 mg tablet 1 tab PO TID 03/08/22 03/13/22 03/13/22 History prazosin 1 mg capsule 1 mg PO BEDTIME 03/08/22 03/13/22 03/12/22 History pregabalin 100 mg capsule 1 cap PO TID 03/08/22 03/13/22 03/13/22 History quetiapine 200 mg tablet 1 tab PO BEDTIME 03/08/22 03/13/22 03/12/22 History Physical Exam Vital Signs and Narrative: Vital Signs: Last Vital Signs Temp 98.4 F 04/05/22 20:34 Pulse 52 04/05/22 22:11 Resp 12 04/05/22 22:11 BP 90/46 L 04/05/22 22:11 Pulse Ox 98 04/05/22 22:11 O2 Del Method 04/05/22 22:11 BMI result Body Mass Index 32.8 Const: Other: Patient awake, alert, orientation cannot be assessed General: no acute distress Eyes: General: appearance normal, both eyes and all related structures Resp: Effort & Inspection: normal respiratory effort Cardio: Rate: regular rate Rhythm: regular rhythm GI: Palpation (GI): Soft to palpation Auscultation: normal bowel sounds Skin: General skin exam: no rashes or lesions noted Extrem: General: Yes normal to inspection and Yes no pedal edema Results Labs 04/05/22 21:06 04/05/22 21:06 Labs: Laboratory Results - last 24 hr 04/05/22 04/05/22 04/05/22 00:08 20:57 21:06 MCV 82.7 MCH 27.2 MCHC 32.9 RDW 16.2 H Plt Count 344 D MPV 11.2 Immature Gran % (Auto) 0.3 Neut % (Auto) 74.0 H Lymph % (Auto) 20.2 [place] % (Auto) 4.5 Eos % (Auto) 0.3 Baso % (Auto) 0.7 Lymph # (Auto) 2.4 [place] # (Auto) 0.5 Eos # (Auto) 0.0 Baso # (Auto) 0.1 Abs Immat Gran (auto) 0.03 Absolute Neuts (auto) 8.7 H Absolute Nucleated RBC 0.000 Nucleated RBC % (auto) 0.0 Anion Gap Estim Creat Clear Calc Estimated GFR POC Glucose 201 H Random Glucose Lactic Acid Calcium Total Bilirubin Direct Bilirubin AST ALT Alkaline Phosphatase Total Protein Albumin Ethyl Alcohol COVID-19 (MARLYS) Negative COVID-19 Clin Com See Note 04/05/22 04/05/22 04/05/22 21:06 21:06 21:06 MCV MCH MCHC RDW Plt Count MPV Immature Gran % (Auto) Neut % (Auto) Lymph % (Auto) [place] % (Auto) Eos % (Auto) Baso % (Auto) Lymph # (Auto) [place] # (Auto) Eos # (Auto) Baso # (Auto) Abs Immat Gran (auto) Absolute Neuts (auto) Absolute Nucleated RBC Nucleated RBC % (auto) Anion Gap 22 H Estim Creat Clear Calc 16.6 Estimated GFR 11 POC Glucose Random Glucose 211 H Lactic Acid 1.3 Calcium 8.7 Total Bilirubin 0.6 Direct Bilirubin < 0.2 AST 59 H ALT 33 H Alkaline Phosphatase 96 Total Protein 6.9 Albumin 4.0 Ethyl Alcohol < 10 COVID-19 (MARLYS) COVID-19 Clin Com Imaging Radiologist's Impressions: Impressions Head CT 04/05/22 22:34 IMPRESSION: 1. Similar appearance of hypodensity and loss of turner-white matter differentiation involving the right occipital lobe compatible with known prior infarct. No acute intracranial abnormality. Assessment and Plan (1) Acute metabolic encephalopathy: Status: Acute (2) Acute renal failure: Status: Acute (3) UTI (urinary tract infection): Status: Acute (4) History of recent stroke: Status: Acute Plan 57-year-old female with bipolar disorder, among other issues presents to the hospital with complaints of altered mental status . # acute metabolic encephalopathy - possibly multifactorial in the setting of dehydration, given evidence of DANY, as well as UTI, and recent history of stroke - of note patient had exact same presentation in early March and at that time found to have similar findings. Patient was treated with IV fluids, with improvement of her symptoms. - head CT shows no acute findings - at this time will treat with fluids, IV antibiotics for the UTI - given her recent CVA, will order MRI of the brain to rule out recurrent CVA as compliance with medication cannot be assured # DANY - likely secondary to dehydration - continue IV fluids - follow BMP # UTI - previous cultures have been negative - but given altered mental status will treat with IV antibiotics - follow cultures # history of recent stroke - continue aspirin and statin # diabetes - low-dose sliding scale insulin - diabetic diet DVT prophylaxis: Heparin subQ Given patient's acute metabolic encephalopathy as well as DANY requiring IV fluids patient require minimum 2 nights inpatient hospital stay for further management and monitor Time Spent With Patient Time: Total time managing care of this patient today ____ minutes. Quality Stroke Does the patient have a stroke diagnosis?: No VTE Prior VTE?: No VTE Risk Level:: Medical - moderate - high VTE Device Contraindication: Treatment Not Indicated VTE Drug Contraindication: N/A - Med Ordered
--- NOTE | 2022-04-06 01:04 | PC.NURSE ---
PT bladder scanned 435. PT repetitive stating no when asked to void on bedpan. Provider notified. Verbal orders given. 16F potter cath placed, draining clear yellow urine, (850cc) emptied. Urine sample collected and sent to lab.
[2022-04-06 01:45] VITALS: BP 121/54; PULSE 62; RESP 12; O2SAT 98
--- NOTE | 2022-04-06 01:49 | MHC.EDTECH ---
Pt bed pad changed. PT repositioned in bed. PT given warm blankets and call michaud placed in reach
[2022-04-06 01:50] LABS: Anion Gap 22 (12-20); Blood Urea Nitrogen 49 mg/dL (9-16); Carbon Dioxide 17 mmol/L (22-29); Chloride 109 mmol/L (96-108); Creatinine Clr Calc Pharmacy 21.7; Estimated Glomerular Filt Rate 15; Glucose Random 178 mg/dL (60-115); Potassium 4.5 mmol/L (3.3-5.1); Sodium 143 mmol/L (135-145)
[2022-04-06 01:53] LABS: Appearance Urine Cloudy; Color Urine Yellow; Glucose Urine UA Negative (Negative); Leukocyte Esterase Urine Small (1+) (Negative); Nitrite Urine Negative (Negative); Specific Gravity - Urine 1.015 (1.005-1.025); UMIC TRIGGER UACC YES; Urine Blood Negative (Negative); Urine Ketones Trace mg/dL (Negative); Urine Protein 30 (1+) mg/dL (Neg-Trace)
[2022-04-06 01:56] LABS: Bacteria Urine None Seen (None Seen); RBC Urine 0-2 /HPF (0-2); UACC Culture Trigger YES
[2022-04-06 02:01] LABS: Amphetamine Screen Urine Not Detected (Not Detect); Barbiturates, Urine Not Detected (Not Detect); Benzodiazepines Screen Urine Not Detected (Not Detect); Cannabinoid Screen Urine Not Detected (Not Detect); Cocaine Screen Urine Not Detected (Not Detect); Fentanyl, urine POSITIVE (Not Detect); Opiate Screen Urine Not Detected (Not Detect); Phencyclidine Screen Urine Not Detected (Not Detect)
[2022-04-06] MEDS: Heparin Sodium,Porcine 5,000 UNIT/ML VIAL 5000 UNIT SUBCUT ×3 (02:02→23:53)
[2022-04-06] MEDS: Lactated Ringers 1,000 ML 100 ML IVCONT ×3 (02:02→21:47)
[2022-04-06 03:27] VITALS: BP 162/75; PULSE 75; RESP 18; TEMP 36.6; O2SAT 95
[2022-04-06 04:01] LABS: Appearance Urine Clear; Color Urine Yellow; Glucose Urine UA Negative (Negative); Leukocyte Esterase Urine Trace (Negative); Nitrite Urine Negative (Negative); PH 5.5 (5.0-9.0); UMIC TRIGGER UACC YES; Urine Blood Small (1+) (Negative); Urine Ketones Trace mg/dL (Negative); Urine Protein Trace mg/dL (Neg-Trace)
[2022-04-06 04:24] LABS: Bacteria Urine None Seen (None Seen); Squamous Epithelial Cell Urine 0-2 /HPF (0-2); UACC Culture Trigger YES
[2022-04-06 06:00] VITALS: BMI 32.7
[2022-04-06 06:34] LABS: Basophils Absolute Auto 0.1 X10*3/uL (0.0-0.2); Basophils Percent Auto 1.2 % (0-2); Eosinophils Absolute Auto 0.1 X10*3/uL (0.0-0.4); Eosinophils Percent Auto 0.9 % (0-4); Hematocrit 39.5 % (37.0-47.0); Hemoglobin 12.9 g/dl (12.0-16.0); Imm Gran Abs Auto 0.03 X10*3/uL (0.00-0.03); Imm Gran Pct Auto 0.3 % (0.0-0.4); Lymphocytes Absolute Auto 4.1 X10*3/uL (1.2-4.9); Lymphocytes Percent Auto 38.2 % (20-40); MANUAL DIFF FLAG SCAN; Mean Corpuscular HGB Conc 32.7 g/dl (31.0-35.0); Mean Corpuscular Hemoglobin 27.4 pg (27.0-33.0); Mean Corpuscular Volume 83.9 fL (80.0-98.0); Monocytes Absolute Auto 0.6 X10*3/uL (0.1-1.2); Monocytes Percent Auto 5.5 % (2-11); Neutrophils Absolute Auto 5.8 x10*3/uL (2.0-8.3); Neutrophils Percent Auto 53.9 % (45-73); PLT CLUMP 1; Red Blood Count 4.71 X10*6/uL (4.20-5.50); SCAN SMEAR FLAG 1
[2022-04-06 06:42] LABS: White Blood Count 10.9 X10*3/uL (4.8-10.8)
[2022-04-06 07:06] LABS: Anion Gap 19 (12-20); Blood Urea Nitrogen 42 mg/dL (9-16); Calcium 8.3 mg/dL (8.4-10.2); Carbon Dioxide 18 mmol/L (22-29); Chloride 108 mmol/L (96-108); Creatinine Clr Calc Pharmacy 28.1; Estimated Glomerular Filt Rate 20; Glucose Random 158 mg/dL (60-115); Platelet Count 268 X10*3/uL (160-400); Potassium 4.3 mmol/L (3.3-5.1); SLIDE REVIEW VERIFIED; Sodium 141 mmol/L (135-145)
[2022-04-06 07:32] LABS: Glucose, Whole Blood 163 mg/dL (60-115)
[2022-04-06] MEDS: cefTRIAXone sodium 1 GM in 0.9 % Sodium Chloride 50 ML IV (07:44)
[2022-04-06 07:45] VITALS: BP 176/76; PULSE 83; RESP 18; TEMP 37.2; O2SAT 91
[2022-04-06] MEDS: Insulin Lispro 100 UNIT/ML 3 ML VIAL SUBCUT ×4 (07:45→20:31)
--- NOTE | 2022-04-06 08:44 | MHC.CM.PN ---
PATIENT ABLE TO VERIFY NAME, , AND INSURANCE. WHEN ASKED IF SHE STILL HAS [facility], PATIENT BEGAN TO CRY AND CONTINUED TO DO SO DOING ASSESSMENT. PATIENT TOLD OF HER IMM DELIVERY AND EXPLANATION OF BENEFITS, BUT IS UNABLE TO SIGN. T/W TOLD PATIENT THAT IMM IS LEFT BEDSIDE AND T/W CAN RETURN TO EXPLAIN IF SHE LIKES WHEN ASKED WHY PATIENT FEELS SHE IS CRYING, SHE STATES I DON'T KNOW HCP ON FILE AND VERIFIED THIS INDUSTRIAL MAINTENANCE MECHANIC TO RETURN. IMM 04/06 IN CHART REFERRAL TO [facility] TO ASK IF THEY ARE STILL ACTIVE
--- NOTE | 2022-04-06 09:04 | PHA.MEDREC ---
Pharmacy Consult ? Medication Reconciliation Pharmacy has completed the medication reconciliation. Patient was not resposne, kept saying yes to questions that were not yes or no questions. Patient get medication pre-packed from [facility]. Fifi Sage, PharmD
[2022-04-06] MEDS: LORazepam 0.5 MG TABLET PO (10:46)
[2022-04-06] MEDS: HaloperidoL 1 MG TABLET PO (10:46)
[2022-04-06] MEDS: hydrALAZINE HCl 25 MG TABLET PO ×3 (10:46→20:10)
--- NOTE | 2022-04-06 11:09 | PM.EVENT ---
Event Note Date of Service: 04/06/22 Event Note: Patient was seen and evaluated this moning barely responding with Yes\No still confused and anxious Med rec done and her meds were restarted My concern if this is a catatonia presentation. to add Benzos and get PSych evaluation Continue IVF Continue Abx Hold on MRI for now Time Spent With Patient Time: Total time managing care of this patient today ____ minutes.
[2022-04-06 11:10] LABS: Glucose, Whole Blood 300 mg/dL (60-115)
--- NOTE | 2022-04-06 14:57 | PM.PSYCN ---
History of Present Illness Date of Service: 04/06/2022 Chief Complaint: Encephalopathy Reason for Consult: agitation Requesting physician: Nisha Velez Discussed with referring provider: Yes Sources of Information: patient interviewed, chart reviewed and crisis/core team assessment reviewed HPI Narrative: Mr. Cruz is a 57 year-old woman brought via EMS [place] [facility] [place] patient was found walking in the halls, police department was called by the neighbors, and therefore patient was brought in to the hospital. In the ED, pt hypotensive, found to have DANY. Utox positive for fentanyl. Pt has presented with altered mental status unable to respond to questions appropriately. Seen today, per RN pt has been loudly crying and moaning. When asked, pt initially not talking. When this web content writer stated that I will be back, she states, okay. Then this web content writer return to bedside, pt denies any pain. When asked about why is she crying, she states I don't know. When asked if she knows where she is she states yes. When asked where, she states in [facility]. No furhter information obtain from pt. She then continued to dry and moan, staring at ceiling. Past Psychiatric History: Bipolar disorder. Prior inpatient episodes. Previous consults most recent 09/04/2021. No history of suicide attempts. [facility] Medical History Asthma Bipolar disorder Chronic pain Diabetes Hypertension IBS (irritable bowel syndrome) Opioid use disorder Peripheral neuropathy Polysubstance abuse Seizure Surgical History History of appendectomy Diagnostics Vital Signs (24Hr): Vital Signs - 24 hr 04/05/22 20:34 04/05/22 21:16 04/05/22 22:11 Temperature 98.4 F Pulse Rate 57 52 52 Respiratory Rate 16 12 12 Blood Pressure 86/42 L 90/45 L 90/46 L Pulse Oximetry 94 99 98 Oxygen Delivery Method Room Air Room Air Room Air 04/06/22 01:45 04/06/22 03:27 04/06/22 07:45 Temperature 97.8 F 99.0 F Pulse Rate 62 75 83 Respiratory Rate 12 18 18 Blood Pressure 121/54 L 162/75 H 176/76 H Pulse Oximetry 98 95 91 L Oxygen Delivery Method Room Air Room Air Room Air BMI result Body Mass Index 32.7 Labs 04/06/22 05:49 04/06/22 05:49 Labs: Laboratory Results - last 48 hr 04/05/22 04/05/22 04/05/22 00:08 20:57 21:06 WBC 11.7 H RBC 4.85 D Hgb 13.2 D Hct 40.1 MCV 82.7 MCH 27.2 MCHC 32.9 RDW 16.2 H Plt Count 344 D MPV 11.2 Immature Gran % (Auto) 0.3 Neut % (Auto) 74.0 H Lymph % (Auto) 20.2 Graves % (Auto) 4.5 Eos % (Auto) 0.3 Baso % (Auto) 0.7 Lymph # (Auto) 2.4 Graves # (Auto) 0.5 Eos # (Auto) 0.0 Baso # (Auto) 0.1 Abs Immat Gran (auto) 0.03 Absolute Neuts (auto) 8.7 H Absolute Nucleated RBC 0.000 Nucleated RBC % (auto) 0.0 Smear Tech's Comments Sodium Potassium Chloride Carbon Dioxide Anion Gap BUN Creatinine Estim Creat Clear Calc Estimated GFR POC Glucose 201 H Random Glucose Lactic Acid Calcium Total Bilirubin Direct Bilirubin AST ALT Alkaline Phosphatase Total Creatine Kinase Total Protein Albumin Urine Color Urine Appearance Urine pH Ur Specific [place] Urine Protein Urine Glucose (UA) Urine Ketones Urine Blood Urine Nitrite Ur Leukocyte Esterase Urine RBC Urine WBC Ur Squamous Epith Cells Urine Bacteria Hyaline Casts Urine Opiates Screen Urine Fentanyl Screen Ur Barbiturates Screen Ur Phencyclidine Scrn Ur Amphetamines Screen U Benzodiazepines Scrn Urine Cocaine Screen U Marijuana (THC) Screen Ethyl Alcohol COVID-19 (MARLYS) Negative COVID-19 Clin Com See Note 04/05/22 04/05/22 04/05/22 21:06 21:06 21:06 WBC RBC Hgb Hct MCV MCH MCHC RDW Plt Count MPV Immature Gran % (Auto) Neut % (Auto) Lymph % (Auto) Graves % (Auto) Eos % (Auto) Baso % (Auto) Lymph # (Auto) Graves # (Auto) Eos # (Auto) Baso # (Auto) Abs Immat Gran (auto) Absolute Neuts (auto) Absolute Nucleated RBC Nucleated RBC % (auto) Smear Tech's Comments Sodium 139 Potassium 4.8 Chloride 101 Carbon Dioxide 21 L Anion Gap 22 H BUN 52 H Creatinine 4.22 H* Estim Creat Clear Calc 16.6 Estimated GFR 11 POC Glucose Random Glucose 211 H Lactic Acid 1.3 Calcium 8.7 Total Bilirubin 0.6 Direct Bilirubin < 0.2 AST 59 H ALT 33 H Alkaline Phosphatase 96 Total Creatine Kinase Total Protein 6.9 Albumin 4.0 Urine Color Urine Appearance Urine pH Ur Specific [place] Urine Protein Urine Glucose (UA) Urine Ketones Urine Blood Urine Nitrite Ur Leukocyte Esterase Urine RBC Urine WBC Ur Squamous Epith Cells Urine Bacteria Hyaline Casts Urine Opiates Screen Urine Fentanyl Screen Ur Barbiturates Screen Ur Phencyclidine Scrn Ur Amphetamines Screen U Benzodiazepines Scrn Urine Cocaine Screen U Marijuana (THC) Screen Ethyl Alcohol < 10 COVID-19 (MARLYS) COVID-19 Frequency 04/06/22 04/06/22 04/06/22 01:16 01:16 01:43 WBC RBC Hgb Hct MCV MCH MCHC RDW Plt Count MPV Immature Gran % (Auto) Neut % (Auto) Lymph % (Auto) Graves % (Auto) Eos % (Auto) Baso % (Auto) Lymph # (Auto) Graves # (Auto) Eos # (Auto) Baso # (Auto) Abs Immat Gran (auto) Absolute Neuts (auto) Absolute Nucleated RBC Nucleated RBC % (auto) Smear Tech's Comments Sodium 143 Potassium 4.5 Chloride 109 H Carbon Dioxide 17 L Anion Gap 22 H BUN 49 H Creatinine 3.23 H Estim Creat Clear Calc 21.7 Estimated GFR 15 POC Glucose Random Glucose 178 H Lactic Acid Calcium 8.0 L D Total Bilirubin Direct Bilirubin AST ALT Alkaline Phosphatase Total Creatine Kinase 233 H Total Protein Albumin Urine Color Urine Appearance Urine pH Ur Specific [place] Urine Protein Urine Glucose (UA) Urine Ketones Urine Blood Urine Nitrite Ur Leukocyte Esterase Urine RBC Urine WBC Ur Squamous Epith Cells Urine Bacteria Hyaline Casts Urine Opiates Screen Not Detected Urine Fentanyl Screen POSITIVE H Ur Barbiturates Screen Not Detected Ur Phencyclidine Scrn Not Detected Ur Amphetamines Screen Not Detected U Benzodiazepines Scrn Not Detected Urine Cocaine Screen Not Detected U Marijuana (THC) Screen Not Detected Ethyl Alcohol COVID-19 (MARLYS) COVID-19 Frequency 04/06/22 04/06/22 04/06/22 01:44 03:34 05:49 WBC 10.9 H RBC 4.71 Hgb 12.9 Hct 39.5 MCV 83.9 MCH 27.4 MCHC 32.7 RDW 16.0 Plt Count 268 MPV Not Reportable Immature Gran % (Auto) 0.3 Neut % (Auto) 53.9 Lymph % (Auto) 38.2 Graves % (Auto) 5.5 Eos % (Auto) 0.9 Baso % (Auto) 1.2 Lymph # (Auto) 4.1 Graves # (Auto) 0.6 Eos # (Auto) 0.1 Baso # (Auto) 0.1 Abs Immat Gran (auto) 0.03 Absolute Neuts (auto) 5.8 Absolute Nucleated RBC 0.000 Nucleated RBC % (auto) 0.0 Smear Tech's Comments VERIFIED Sodium Potassium Chloride Carbon Dioxide Anion Gap BUN Creatinine Estim Creat Clear Calc Estimated GFR POC Glucose Random Glucose Lactic Acid Calcium Total Bilirubin Direct Bilirubin AST ALT Alkaline Phosphatase Total Creatine Kinase Total Protein Albumin Urine Color Yellow Yellow Urine Appearance Cloudy Clear Urine pH 5.0 5.5 Ur Specific [place] 1.015 1.010 Urine Protein 30 (1+) H Trace Urine Glucose (UA) Negative Negative Urine Ketones Trace Trace Urine Blood Negative Small (1+) H Urine Nitrite Negative Negative Ur Leukocyte Esterase Small (1+) H Trace H Urine RBC 0-2 11-20 H Urine WBC 11-20 H 11-20 H Ur Squamous Epith Cells 3-5 0-2 Urine Bacteria None Seen None Seen Hyaline Casts 3-5 11-20 Urine Opiates Screen Urine Fentanyl Screen Ur Barbiturates Screen Ur Phencyclidine Scrn Ur Amphetamines Screen U Benzodiazepines Scrn Urine Cocaine Screen U Marijuana (THC) Screen Ethyl Alcohol COVID-19 (MARLYS) COVID-19 Clin Com 04/06/22 04/06/22 04/06/22 05:49 07:17 11:07 WBC RBC Hgb Hct MCV MCH MCHC RDW Plt Count MPV Immature Gran % (Auto) Neut % (Auto) Lymph % (Auto) Graves % (Auto) Eos % (Auto) Baso % (Auto) Lymph # (Auto) Graves # (Auto) Eos # (Auto) Baso # (Auto) Abs Immat Gran (auto) Absolute Neuts (auto) Absolute Nucleated RBC Nucleated RBC % (auto) Smear Tech's Comments Sodium 141 Potassium 4.3 Chloride 108 Carbon Dioxide 18 L Anion Gap 19 BUN 42 H Creatinine 2.49 H Estim Creat Clear Calc 28.1 Estimated GFR 20 POC Glucose 163 H 300 H Random Glucose 158 H Lactic Acid Calcium 8.3 L Total Bilirubin Direct Bilirubin AST ALT Alkaline Phosphatase Total Creatine Kinase Total Protein Albumin Urine Color Urine Appearance Urine pH Ur Specific [place] Urine Protein Urine Glucose (UA) Urine Ketones Urine Blood Urine Nitrite Ur Leukocyte Esterase Urine RBC Urine WBC Ur Squamous Epith Cells Urine Bacteria Hyaline Casts Urine Opiates Screen Urine Fentanyl Screen Ur Barbiturates Screen Ur Phencyclidine Scrn Ur Amphetamines Screen U Benzodiazepines Scrn Urine Cocaine Screen U Marijuana (THC) Screen Ethyl Alcohol COVID-19 (MARLYS) COVID-19 Clin Com Imaging Radiology Impressions: ITS Impressions Head CT 04/05/22 22:34 IMPRESSION: 1. Similar appearance of hypodensity and loss of turner-white matter differentiation involving the right occipital lobe compatible with known prior infarct. No acute intracranial abnormality. Mental Status Exam Mental Status Exam Narrative: Appearance: MO, wearing hospital gown, in distress but unclear source Behavior: difficult to engage Psychomotor: intermittent agitation Speech: minimally verbal, mostly yes or no answers TP: yes or no answer but pt appears not to be able to fully comprehend questions asked TC: minimal content reported Mood: unable to describe Affect: fearful tearful SI/HI: denies AH/VH: unclear Delusions:no overt reported due to mutism Insight/judgment: impaired x 2. alert, not oriented to place, months, date, situationa Medications Medications Current Medications Acetaminophen (Acetaminophen 325 Mg Tablet) 650 mg PO Q6H PRN PRN Reason: Pain, Mild (Pain Scale 1-3) Aspirin (Aspirin Enteric Coated 81 Mg Tablet.) 81 mg PO DAILY [facility] Atorvastatin Calcium (Atorvastatin Calcium 20 Mg Tablet) 20 mg PO DAILY [facility] Clonazepam (Clonazepam 0.5 Mg Tablet) 0.5 mg PO DAILY PRN PRN Reason: panic attack Clonidine HCl (Clonidine Hcl 0.2 Mg Tablet) 0.2 mg PO TID PRN; Protocol PRN Reason: Anxiety Dextrose (Dextrose 50 % 25 Gm/50 Ml Syringe) 25 gm IVPUSH Q15M PRN; Protocol PRN Reason: per Hypoglycemia Standing Ord. Docusate Sodium (Docusate Sodium 100 Mg Capsule) 100 mg PO DAILY PRN PRN Reason: Constipation Glucose (Glucose Gel 15 Gm Gel..Gram.) 15 gm PO Q15M PRN; Protocol PRN Reason: per Hypoglycemia Standing Ord. Haloperidol (Haloperidol 1 Mg Tablet) 2 mg PO TID [facility] Haloperidol Lactate (Haloperidol Lactate 5 Mg/Ml Vial) 5 mg IVPUSH ONCE ONE Stop: 04/06/22 14:56 Heparin Sodium (Porcine) (Heparin Sodium,Porcine 5,000 Unit/Ml Vial) 5,000 unit SUBCUT Q12H [facility] Last Admin: 04/06/22 11:36 Dose: 5,000 unit Hydralazine HCl (Hydralazine Hcl 25 Mg Tablet) 25 mg PO TID [facility]; Protocol Last Admin: 04/06/22 10:46 Dose: 25 mg Lactated Ringer's (Lr) 1,000 mls @ 100 mls/hr IVCONT .Q10H [facility] Last Admin: 04/06/22 10:49 Dose: 100 mls/hr Ceftriaxone Sodium 1 gm/ (Sodium Chloride) 50 mls @ 100 mls/hr IV Q24H [facility] Last Infusion: 04/06/22 08:58 Dose: Infused Diphenhydramine HCl 50 mg/ (Sodium Chloride) 51 mls @ 200 mls/hr IV ONCE ONE Stop: 04/06/22 15:10 Insulin Human Lispro (Insulin Lispro 100 Unit/Ml 3 Ml Vial) 0 unit SUBCUT QIDACHS [facility]; Protocol Last Admin: 04/06/22 11:36 Dose: 6 unit Lorazepam (Lorazepam 0.5 Mg Tablet) 0.5 mg PO DAILY [facility] Last Admin: 04/06/22 10:46 Dose: 0.5 mg Lorazepam (Lorazepam 2 Mg/Ml Vial) 2 mg IVPUSH ONCE ONE Stop: 04/06/22 14:55 Lurasidone HCl (Lurasidone Hcl 40 Mg Tablet) 40 mg PO DAILY@1800 [facility] Ondansetron HCl (Ondansetron Hcl 4 Mg/2 Ml Vial) 4 mg IVPUSH Q8H PRN PRN Reason: Nausea and Vomiting Pharmacy Consult (Consult Rx Perform Med Rec) 1 each MISCELLANE ONCE PRN PRN Reason: Consult order Prazosin HCl (Prazosin Hcl 1 Mg Capsule) 1 mg PO BEDTIME [facility]; Protocol Pregabalin (Pregabalin 100 Mg Capsule) 100 mg PO TID [facility] Quetiapine Fumarate (Quetiapine Fumarate 200 Mg Tablet) 200 mg PO BEDTIME [facility] Sitagliptin Phosphate (Sitagliptin Phosphate 100 Mg Tablet) 100 mg PO BEDTIME [facility] Sodium Chloride (0.9 % Sodium Chloride Flush 3 Ml Syringe) 3 ml IVFLUSH QSHIFT [facility] Last Admin: 04/06/22 07:45 Dose: Not Given Allergies Allergies Allergy/AdvReac Type Severity Reaction Status Date / Time morphine [MORPHINE] Allergy Unknown RASH, vomit Verified 01/15/22 00:48 prednisone Allergy Unknown hives Verified 01/15/22 00:48 Sulfa (Sulfonamide Allergy Unknown UNKNOWN, Verified 01/15/22 00:48 Antibiotics) hives [SULFA (SULFONAMIDE ANTIBIOTICS)] Assessment & Plan Assessment & Plan (1) Acute metabolic encephalopathy: Status: Acute Code(s): G93.41 - Metabolic encephalopathy Plan Pt presents with s/s of encephalopathy, current presentation not consistent with primarily psychiatric illness. Given creatinine clearance of less than 40, will stop cymbalta. continue haldol 2mg po TID, will give one time dose now of ativan 2mg IV, with haldol 5 mg IV and benedryl 50mg IV. PLAN 1. avoid polypharmacy: d/c latuda, given significantly decreased creatinine clearance will d/c cymbalta. continue haldol 2mg po TID, continue seroquel 200mg po qhs. ativan 2mg po TID PRN agitation. May required higher doses of haldol if agitated. Monitor EKG, maintain Qtc<500ms, maintain K>4, Mg>2. Last EKG qtc 448ms. 2. No need for inpt psych admission, pt is in delirium and may take longer to resolve. psych to follow up on medical floor for management of agitation. Total time managing care of this patient today ____ minutes.
[2022-04-06 16:00] VITALS: BP 175/77; PULSE 82; RESP 15; TEMP 36.6; O2SAT 96
[2022-04-06] MEDS: diphenhydrAMINE HCL 50 MG/ML VIAL IVPUSH (16:19)
[2022-04-06] MEDS: Pregabalin 100 MG CAPSULE PO ×2 (16:19→20:10)
[2022-04-06] MEDS: Haloperidol Lactate 5 MG/ML VIAL IVPUSH (16:19)
[2022-04-06] MEDS: LORazepam 2 MG/ML VIAL IVPUSH (16:19)
[2022-04-06] MEDS: 0.9 % Sodium Chloride Flush 3 ML SYRINGE IVFLUSH (16:20)
[2022-04-06 16:50] LABS: Glucose, Whole Blood 251 mg/dL (60-115)
[2022-04-06] MEDS: Acetaminophen 325 MG TABLET 650 MG PO (17:17)
--- NOTE | 2022-04-06 17:22 | PC.NURSE ---
patient removed potter catheter, MD aware and ordered bladder scan qshift, bladder scan 0ml, purewick in place draining dark yellow urine
[2022-04-06 19:34] VITALS: BP 154/81; PULSE 95; RESP 14; TEMP 37.1; O2SAT 100
[2022-04-06] MEDS: Prazosin HCL 1 MG CAPSULE PO (20:07)
[2022-04-06] MEDS: HaloperidoL 1 MG TABLET 2 MG PO (20:09)
[2022-04-06] MEDS: QUEtiapine Fumarate 200 MG TABLET PO (20:10)
[2022-04-06] MEDS: SITagliptin Phosphate 100 MG TABLET PO (20:11)
[2022-04-06 20:13] LABS: Glucose, Whole Blood 254 mg/dL (60-115)
[2022-04-06] MEDS: diphenhydrAMINE HCL 50 MG/ML VIAL 25 MG IVPUSH (23:51)
[2022-04-07] MEDS: 0.9 % Sodium Chloride Flush 3 ML SYRINGE IVFLUSH ×2 (01:03→17:14)
[2022-04-07] MEDS: Acetaminophen 325 MG TABLET 650 MG PO ×2 (02:15→17:21)
[2022-04-07] MEDS: clonazePAM 0.5 MG TABLET PO (02:16)
[2022-04-07 03:05] VITALS: BP 160/72; PULSE 82; RESP 20; TEMP 36.9; O2SAT 96
[2022-04-07] MEDS: oxyCODONE HCl Immed Release 5 MG TABLET PO ×3 (03:54→21:03)
[2022-04-07] MEDS: Lactated Ringers 1,000 ML 100 ML IVCONT (03:54)
[2022-04-07 05:20] VITALS: BMI 31.8
[2022-04-07] MEDS: cefTRIAXone sodium 1 GM in 0.9 % Sodium Chloride 50 ML IV (05:59)
[2022-04-07 06:22] LABS: Hemoglobin 11.8 g/dl (12.0-16.0); Mean Corpuscular HGB Conc 32.8 g/dl (31.0-35.0); Mean Corpuscular Hemoglobin 27.4 pg (27.0-33.0); Mean Corpuscular Volume 83.5 fL (80.0-98.0); Mean Platelet Volume 11.3 fL (9.4-12.3); Platelet Count 239 X10*3/uL (160-400); Red Blood Count 4.31 X10*6/uL (4.20-5.50); Red Cell Distribution Width 15.8 % (11.0-16.0); White Blood Count 8.9 X10*3/uL (4.8-10.8)
[2022-04-07 06:58] LABS: Anion Gap 16 (12-20); Blood Urea Nitrogen 23 mg/dL (9-16); Calcium 9.4 mg/dL (8.4-10.2); Carbon Dioxide 25 mmol/L (22-29); Chloride 107 mmol/L (96-108); Creatinine Clr Calc Pharmacy 52.3; Estimated Glomerular Filt Rate 41; Glucose Random 184 mg/dL (60-115); Potassium 3.7 mmol/L (3.3-5.1); Sodium 144 mmol/L (135-145)
[2022-04-07 07:42] LABS: Glucose, Whole Blood 226 mg/dL (60-115)
[2022-04-07 08:00] VITALS: BP 164/80; PULSE 87; RESP 18; TEMP 37.1; O2SAT 94
[2022-04-07] MEDS: Insulin Lispro 100 UNIT/ML 3 ML VIAL SUBCUT ×3 (08:29→20:55)
[2022-04-07] MEDS: HaloperidoL 1 MG TABLET 2 MG PO ×3 (08:30→20:55)
[2022-04-07] MEDS: LORazepam 0.5 MG TABLET PO (08:30)
[2022-04-07] MEDS: Pregabalin 100 MG CAPSULE PO ×3 (08:30→20:55)
[2022-04-07] MEDS: hydrALAZINE HCl 25 MG TABLET PO ×3 (08:30→20:54)
[2022-04-07] MEDS: Atorvastatin Calcium 20 MG TABLET PO (08:30)
[2022-04-07] MEDS: Aspirin Enteric Coated 81 MG TABLET.DR PO (08:30)
[2022-04-07] MEDS: LORazepam 1 MG TABLET 2 MG PO (11:27)
[2022-04-07] MEDS: Heparin Sodium,Porcine 5,000 UNIT/ML VIAL 5000 UNIT SUBCUT (11:28)
[2022-04-07 11:37] LABS: Glucose, Whole Blood 262 mg/dL (60-115)
--- NOTE | 2022-04-07 11:44 | HO.PM.IMPN ---
Subjective Subjective Date of Service: 04/07/22 Interval History: Seen and evaluated this morning More alert and interactive but still significantly anxious and distressed Confused about where and when Reported removing her [place] catheter yesterday requiring Haldol IV Asking to go home to attend a No other overnight events Review of Systems Review of Systems: Yes all other systems are reviewed and are negative Physical Exam Vital Signs: Vital Signs: Last Vital Signs Temp 98.7 F 04/07/22 08:00 Pulse 87 04/07/22 08:00 Resp 18 04/07/22 08:00 BP 164/80 H 04/07/22 08:00 Pulse Ox 94 04/07/22 08:00 O2 Del Method 04/07/22 08:00 BMI result Body Mass Index 31.8 Const: Other: Constitutional : Awake, interactive, anxious, mildly distressed Neck : Normal inspection, Supple Cardiovascular : RRR, no JVP, no lower extremity edema Respiratory : good bilateral air entry, no crackles, wheezes or rhonchi Gastrointestinal: soft, lax, Normal bowel sounds, Non tender Skin : Warm, Dry Neurological : Alert & disoriented to place and time, No focal deficit Objective Data Active Medications Acetaminophen (Acetaminophen 325 Mg Tablet) 650 mg PO Q6H PRN PRN Reason: Pain, Mild (Pain Scale 1-3) Last Admin: 04/07/22 02:15 Dose: 650 mg Documented By: AGUSTÍN Aspirin (Aspirin Enteric Coated 81 Mg Tablet.) 81 mg PO DAILY [facility] Last Admin: 04/07/22 08:30 Dose: 81 mg Documented By: NOLAN Atorvastatin Calcium (Atorvastatin Calcium 20 Mg Tablet) 20 mg PO DAILY [facility] Last Admin: 04/07/22 08:30 Dose: 20 mg Documented By: NOLAN Clonidine HCl (Clonidine Hcl 0.2 Mg Tablet) 0.2 mg PO TID PRN; Protocol PRN Reason: Anxiety Dextrose (Dextrose 50 % 25 Gm/50 Ml Syringe) 25 gm IVPUSH Q15M PRN; Protocol PRN Reason: per Hypoglycemia Standing Ord. Docusate Sodium (Docusate Sodium 100 Mg Capsule) 100 mg PO DAILY PRN PRN Reason: Constipation Glucose (Glucose Gel 15 Gm Gel..Gram.) 15 gm PO Q15M PRN; Protocol PRN Reason: per Hypoglycemia Standing Ord. Haloperidol (Haloperidol 1 Mg Tablet) 2 mg PO TID [facility] Last Admin: 04/07/22 08:30 Dose: 2 mg Documented By: NOLAN Heparin Sodium (Porcine) (Heparin Sodium,Porcine 5,000 Unit/Ml Vial) 5,000 unit SUBCUT Q12H [facility] Last Admin: 04/07/22 11:28 Dose: 5,000 unit Documented By: NOLAN Hydralazine HCl (Hydralazine Hcl 25 Mg Tablet) 25 mg PO TID [facility]; Protocol Last Admin: 04/07/22 08:30 Dose: 25 mg Documented By: NOLAN Ceftriaxone Sodium 1 gm/ (Sodium Chloride) 50 mls @ 100 mls/hr IV Q24H [facility] Last Infusion: 04/07/22 06:36 Dose: 0 mls/hr Documented By: AGUSTÍN Insulin Human Lispro (Insulin Lispro 100 Unit/Ml 3 Ml Vial) 0 unit SUBCUT QIDACHS [facility]; Protocol Last Admin: 04/07/22 08:29 Dose: 4 unit Documented By: NOLAN Lorazepam (Lorazepam 0.5 Mg Tablet) 0.5 mg PO DAILY [facility] Last Admin: 04/07/22 08:30 Dose: 0.5 mg Documented By: NOLAN Lorazepam (Lorazepam 1 Mg Tablet) 2 mg PO TID PRN PRN Reason: anxiety/restlessness Last Admin: 04/07/22 11:27 Dose: 2 mg Documented By: NOLAN Ondansetron HCl (Ondansetron Hcl 4 Mg/2 Ml Vial) 4 mg IVPUSH Q8H PRN PRN Reason: Nausea and Vomiting Oxycodone HCl (Oxycodone Hcl Immed Release 5 Mg Tablet) 5 mg PO Q8H PRN PRN Reason: Pain, Severe (Pain Scale 7-10) Last Admin: 04/07/22 11:27 Dose: 5 mg Documented By: NOLAN Pharmacy Consult (Consult Rx Perform Med Rec) 1 each MISCELLANE ONCE PRN PRN Reason: Consult order Prazosin HCl (Prazosin Hcl 1 Mg Capsule) 1 mg PO BEDTIME [facility]; Protocol Last Admin: 04/06/22 20:07 Dose: 1 mg Documented By: AGUSTÍN Pregabalin (Pregabalin 100 Mg Capsule) 100 mg PO TID [facility] Last Admin: 04/07/22 08:30 Dose: 100 mg Documented By: NOLAN Quetiapine Fumarate (Quetiapine Fumarate 200 Mg Tablet) 200 mg PO BEDTIME [facility] Last Admin: 04/06/22 20:10 Dose: 200 mg Documented By: AGUSTÍN Sitagliptin Phosphate (Sitagliptin Phosphate 100 Mg Tablet) 100 mg PO BEDTIME [facility] Last Admin: 04/06/22 20:11 Dose: 100 mg Documented By: AGUSTÍN Sodium Chloride (0.9 % Sodium Chloride Flush 3 Ml Syringe) 3 ml IVFLUSH QSHIFT [facility] Last Admin: 04/07/22 08:31 Dose: Not Given Documented By: NOLAN Non-Admin Reason: IV Running Labs 04/07/22 05:41 04/07/22 05:41 Labs: Laboratory Results - last 24 hr 04/06/22 04/06/22 04/07/22 16:36 20:09 05:41 MCV 83.5 MCH 27.4 MCHC 32.8 RDW 15.8 Plt Count 239 MPV 11.3 Absolute Nucleated RBC 0.000 Nucleated RBC % (auto) 0.0 Anion Gap Estim Creat Clear Calc Estimated GFR POC Glucose 251 H 254 H Random Glucose Calcium 04/07/22 04/07/22 04/07/22 05:41 07:31 11:14 MCV MCH MCHC RDW Plt Count MPV Absolute Nucleated RBC Nucleated RBC % (auto) Anion Gap 16 Estim Creat Clear Calc 52.3 Estimated GFR 41 POC Glucose 226 H 262 H Random Glucose 184 H Calcium 9.4 D Microbiology Microbiology Results: Microbiology 04/05/22 22:58 Blood Culture - Preliminary Blood - Venous No growth after 24 hours. 04/05/22 21:06 Blood Culture - Preliminary Blood - Venous No growth after 24 hours. Assessment and Plan (1) Acute renal failure: Status: Acute (2) Acute metabolic encephalopathy: Status: Acute (3) UTI (urinary tract infection): Status: Acute (4) Polysubstance abuse: Status: Acute Plan 57-year-old female with bipolar disorder, among other issues presents to the hospital with complaints of altered mental status . # acute toxic metabolic encephalopathy Improving slowly multifactorial in the drugs, DANY, UTI, delirium and recent history of psychiatric illness head CT shows no acute findings Drug screen positive for fentanyl Treating Dany I, UTI and possible withdrawal Psychiatry input appreciated, avoid polypharmacy, Christi Gross. Might need more help dual for agitation Keep QTC below 500, Last qtc 448ms. monitor electrolytes Add 2 mg Ativan as needed t.i.d. # DANY secondary to dehydration, improving Discontinue IV fluids follow BMP # UTI Pending cultures Continue ceftriaxone # history of recent stroke continue aspirin and statin # diabetes low-dose sliding scale insulin diabetic diet DVT prophylaxis: Heparin subQ Given patient's acute metabolic encephalopathy as well as DANY requiring IV fluids patient require overnight inpatient hospital stay for further management and monitor Time Spent With Patient Time: Total time managing care of this patient today ____ minutes. Quality Stroke Does the patient have a stroke diagnosis?: No VTE Prior VTE?: No VTE Risk Level:: Medical - moderate - high VTE Device Contraindication: Treatment Not Indicated VTE Drug Contraindication: N/A - Med Ordered
[2022-04-07 15:19] VITALS: BP 186/86; PULSE 95; RESP 18; TEMP 36.6; O2SAT 94
[2022-04-07 16:04] LABS: Glucose, Whole Blood 241 mg/dL (60-115)
[2022-04-07 17:30] VITALS: BP 178/75; PULSE 87; RESP 20
--- NOTE | 2022-04-07 17:37 | PC.NURSE ---
BP elevated 178/75 pulse 87,c/o headache,administered tylenol,BS 241 pt refused dinner ,no insulin coverage,Dr. Velez notified
[2022-04-07] MEDS: cloNIDine HCL 0.2 MG TABLET PO (17:47)
--- NOTE | 2022-04-07 18:37 | PC.NURSE ---
patient bladder scanned by PRINTER'S ASSISTANT for 241 ml,patient voided large amt after in the bathroom
[2022-04-07 19:08] VITALS: BP 132/63; PULSE 75; RESP 18; TEMP 36.1; O2SAT 93
[2022-04-07 19:32] LABS: Glucose, Whole Blood 251 mg/dL (60-115)
[2022-04-07] MEDS: Prazosin HCL 1 MG CAPSULE PO (20:54)
[2022-04-07] MEDS: QUEtiapine Fumarate 200 MG TABLET PO (20:54)
[2022-04-07] MEDS: SITagliptin Phosphate 100 MG TABLET PO (20:55)
[2022-04-08] MEDS: 0.9 % Sodium Chloride Flush 3 ML SYRINGE IVFLUSH ×4 (01:00→20:03)
[2022-04-08] MEDS: Heparin Sodium,Porcine 5,000 UNIT/ML VIAL 5000 UNIT SUBCUT ×2 (01:00→12:00)
[2022-04-08 04:00] VITALS: BP 153/73; PULSE 79; RESP 20; TEMP 36.8; O2SAT 94
[2022-04-08 04:47] VITALS: BMI 31.7
[2022-04-08] MEDS: cefTRIAXone sodium 1 GM in 0.9 % Sodium Chloride 50 ML IV (05:42)
[2022-04-08] MEDS: oxyCODONE HCl Immed Release 5 MG TABLET PO ×3 (05:56→22:23)
[2022-04-08] MEDS: Acetaminophen 325 MG TABLET 650 MG PO (05:56)
[2022-04-08 07:38] VITALS: BP 135/63; PULSE 75; RESP 18; TEMP 36.3; O2SAT 95
[2022-04-08] MEDS: hydrALAZINE HCl 25 MG TABLET PO ×3 (08:01→20:03)
[2022-04-08] MEDS: HaloperidoL 1 MG TABLET 2 MG PO ×3 (08:01→20:02)
[2022-04-08] MEDS: LORazepam 0.5 MG TABLET PO (08:01)
[2022-04-08] MEDS: Aspirin Enteric Coated 81 MG TABLET.DR PO (08:01)
[2022-04-08] MEDS: Insulin Lispro 100 UNIT/ML 3 ML VIAL SUBCUT ×4 (08:01→20:11)
[2022-04-08] MEDS: Atorvastatin Calcium 20 MG TABLET PO (08:01)
[2022-04-08] MEDS: Pregabalin 100 MG CAPSULE PO ×3 (08:01→20:02)
[2022-04-08 08:23] LABS: Glucose, Whole Blood 218 mg/dL (60-115)
[2022-04-08 11:46] LABS: Glucose, Whole Blood 227 mg/dL (60-115)
--- NOTE | 2022-04-08 14:19 | P.PNIM_ITS ---
Subjective Subjective Date of Service: 04/08/22 Interval History: Seen and evaluated this morning More alert and interactive but still significantly anxious and distressed Confused about where and when Reported removing her Ashford catheter yesterday requiring Haldol IV Asking to go home to attend a No other overnight events Physical Exam Vital Signs: Vital Signs: Last Vital Signs Temp 97.3 F 04/08/22 07:38 Pulse 75 04/08/22 07:38 Resp 18 04/08/22 07:38 BP 135/63 04/08/22 07:38 Pulse Ox 95 04/08/22 07:38 O2 Del Method 04/08/22 07:38 BMI result Body Mass Index 31.7 Const: Other: Constitutional : Awake, interactive, anxious, mildly distressed Neck : Normal inspection, Supple Cardiovascular : RRR, no JVP, no lower extremity edema Respiratory : good bilateral air entry, no crackles, wheezes or rhonchi Gastrointestinal: soft, lax, Normal bowel sounds, Non tender Skin : Warm, Dry Neurological : Alert & disoriented to place and time, No focal deficit Objective Data Active Medications Acetaminophen (Acetaminophen 325 Mg Tablet) 650 mg PO Q6H PRN PRN Reason: Pain, Mild (Pain Scale 1-3) Last Admin: 04/08/22 05:56 Dose: 650 mg Documented By: COTEMA Aspirin (Aspirin Enteric Coated 81 Mg Tablet.) 81 mg PO DAILY [facility] Last Admin: 04/08/22 08:01 Dose: 81 mg Documented By: NOLAN Atorvastatin Calcium (Atorvastatin Calcium 20 Mg Tablet) 20 mg PO DAILY [facility] Last Admin: 04/08/22 08:01 Dose: 20 mg Documented By: NOLAN Clonidine HCl (Clonidine Hcl 0.2 Mg Tablet) 0.2 mg PO TID PRN; Protocol PRN Reason: Anxiety Last Admin: 04/07/22 17:47 Dose: 0.2 mg Documented By: THIAGO Dextrose (Dextrose 50 % 25 Gm/50 Ml Syringe) 25 gm IVPUSH Q15M PRN; Protocol PRN Reason: per Hypoglycemia Standing Ord. Docusate Sodium (Docusate Sodium 100 Mg Capsule) 100 mg PO DAILY PRN PRN Reason: Constipation Glucose (Glucose Gel 15 Gm Gel..Gram.) 15 gm PO Q15M PRN; Protocol PRN Reason: per Hypoglycemia Standing Ord. Haloperidol (Haloperidol 1 Mg Tablet) 2 mg PO TID [facility] Last Admin: 04/08/22 08:01 Dose: 2 mg Documented By: NOLAN Heparin Sodium (Porcine) (Heparin Sodium,Porcine 5,000 Unit/Ml Vial) 5,000 unit SUBCUT Q12H [facility] Last Admin: 04/08/22 12:00 Dose: 5,000 unit Documented By: NOLAN Hydralazine HCl (Hydralazine Hcl 25 Mg Tablet) 25 mg PO TID [facility]; Protocol Last Admin: 04/08/22 08:01 Dose: 25 mg Documented By: NOLAN Ceftriaxone Sodium 1 gm/ (Sodium Chloride) 50 mls @ 100 mls/hr IV Q24H [facility] Last Infusion: 04/08/22 06:20 Dose: 0 mls/hr Documented By: MARELY Insulin Human Lispro (Insulin Lispro 100 Unit/Ml 3 Ml Vial) 0 unit SUBCUT QIDACHS [facility]; Protocol Last Admin: 04/08/22 11:57 Dose: 4 unit Documented By: NOLAN Lorazepam (Lorazepam 0.5 Mg Tablet) 0.5 mg PO DAILY [facility] Last Admin: 04/08/22 08:01 Dose: 0.5 mg Documented By: NOLAN Lorazepam (Lorazepam 1 Mg Tablet) 2 mg PO TID PRN PRN Reason: anxiety/restlessness Last Admin: 04/07/22 11:27 Dose: 2 mg Documented By: NOLAN Ondansetron HCl (Ondansetron Hcl 4 Mg/2 Ml Vial) 4 mg IVPUSH Q8H PRN PRN Reason: Nausea and Vomiting Oxycodone HCl (Oxycodone Hcl Immed Release 5 Mg Tablet) 5 mg PO Q8H PRN PRN Reason: Pain, Severe (Pain Scale 7-10) Last Admin: 04/08/22 05:56 Dose: 5 mg Documented By: MARELY Pharmacy Consult (Consult Rx Perform Med Rec) 1 each MISCELLANE ONCE PRN PRN Reason: Consult order Prazosin HCl (Prazosin Hcl 1 Mg Capsule) 1 mg PO BEDTIME [facility]; Protocol Last Admin: 04/07/22 20:54 Dose: 1 mg Documented By: THIAGO Pregabalin (Pregabalin 100 Mg Capsule) 100 mg PO TID [facility] Last Admin: 04/08/22 08:01 Dose: 100 mg Documented By: NOLAN Quetiapine Fumarate (Quetiapine Fumarate 200 Mg Tablet) 200 mg PO BEDTIME [facility] Last Admin: 04/07/22 20:54 Dose: 200 mg Documented By: THIAGO Sitagliptin Phosphate (Sitagliptin Phosphate 100 Mg Tablet) 100 mg PO BEDTIME [facility] Last Admin: 04/07/22 20:55 Dose: 100 mg Documented By: THIAGO Sodium Chloride (0.9 % Sodium Chloride Flush 3 Ml Syringe) 3 ml IVFLUSH QSHIFT [facility] Last Admin: 04/08/22 08:01 Dose: 3 ml Documented By: NOLAN Labs 04/07/22 05:41 04/07/22 05:41 Labs: Laboratory Results - last 24 hr 04/07/22 04/07/22 04/08/22 15:21 19:11 07:35 POC Glucose 241 H 251 H 218 H 04/08/22 11:42 POC Glucose 227 H Microbiology Microbiology Results: Microbiology 04/06/22 00:00 Urine Culture - Preliminary Urine Catheterized - Ashford Catheter Enterococcus/Streptococcus sp Viridans streptococcus group 04/05/22 22:58 Blood Culture - Preliminary Blood - Venous No growth after 48 hours. 04/05/22 21:06 Blood Culture - Preliminary Blood - Venous No growth after 48 hours. Assessment and Plan (1) Acute renal failure: Status: Acute (2) Acute metabolic encephalopathy: Status: Acute (3) UTI (urinary tract infection): Status: Acute Plan 57-year-old female with bipolar disorder, among other issues presents to the hospital with complaints of altered mental status . # acute toxic metabolic encephalopathy Improving slowly multifactorial in the drugs, DANY, UTI, delirium and recent history of psych iatric illness head CT shows no acute findings Drug screen positive for fentanyl Treating Dany I, UTI and possible withdrawal Psychiatry input appreciated, avoid polypharmacy, Christi Gross. to follow as OP 2 mg Ativan as needed t.i.d. # DANY secondary to dehydration, improving Discontinue IV fluids follow BMP # UTI growing possible Enterococcus\Strep Change Abx to ampicillin # history of recent stroke continue aspirin and statin # diabetes low-dose sliding scale insulin diabetic diet DVT prophylaxis: Heparin subQ Given patient's encephalopathy, UTI pending final culture patient require overnight inpatient hospital stay for further management and monitor Time Spent With Patient Time: Total time managing care of this patient today ____ minutes. Quality Stroke Does the patient have a stroke diagnosis?: No VTE Prior VTE?: No VTE Risk Level:: Medical - moderate - high VTE Device Contraindication: Treatment Not Indicated VTE Drug Contraindication: N/A - Med Ordered
[2022-04-08 15:01] VITALS: BP 150/63; PULSE 79; RESP 16; TEMP 36.2; O2SAT 95
[2022-04-08 16:16] LABS: Glucose, Whole Blood 222 mg/dL (60-115)
[2022-04-08] MEDS: Ampicillin Sodium 1 GM in 0.9 % Sodium Chloride 100 ML IV ×2 (16:34→22:32)
[2022-04-08] MEDS: LORazepam 1 MG TABLET 2 MG PO (16:37)
--- NOTE | 2022-04-08 18:40 | PC.NURSE ---
LOKIE ENGINEER reported patient voided 300 ml and was bladder scanned for 146 ml
[2022-04-08 18:50] VITALS: BP 158/70; PULSE 84; RESP 17; TEMP 36.3; O2SAT 96
[2022-04-08 19:23] LABS: Glucose, Whole Blood 321 mg/dL (60-115)
[2022-04-08] MEDS: Prazosin HCL 1 MG CAPSULE PO (20:02)
[2022-04-08] MEDS: SITagliptin Phosphate 100 MG TABLET PO (20:02)
[2022-04-08] MEDS: QUEtiapine Fumarate 200 MG TABLET PO (20:02)
[2022-04-08 20:07] LABS: Glucose, Whole Blood 321 mg/dL (60-115)
[2022-04-08] MEDS: cloNIDine HCL 0.2 MG TABLET PO (20:14)
[2022-04-09] MEDS: Heparin Sodium,Porcine 5,000 UNIT/ML VIAL 5000 UNIT SUBCUT ×2 (00:15→12:08)
[2022-04-09 03:20] VITALS: BP 123/57; PULSE 85; RESP 18; TEMP 36.1; O2SAT 97
[2022-04-09] MEDS: Ampicillin Sodium 1 GM in 0.9 % Sodium Chloride 100 ML IV ×2 (03:44→10:47)
--- NOTE | 2022-04-09 03:52 | PC.NURSE ---
Pt voided 100cc in bathroom bladder scanned for 0 cc.
[2022-04-09 06:00] VITALS: BMI 32.1
[2022-04-09 06:52] LABS: Anion Gap 16 (12-20); Blood Urea Nitrogen 20 mg/dL (9-16); Calcium 9.4 mg/dL (8.4-10.2); Carbon Dioxide 26 mmol/L (22-29); Chloride 102 mmol/L (96-108); Creatinine Clr Calc Pharmacy 60.4; Estimated Glomerular Filt Rate 48; Glucose Random 255 mg/dL (60-115); Sodium 140 mmol/L (135-145)
[2022-04-09 07:50] LABS: Glucose, Whole Blood 218 mg/dL (60-115)
[2022-04-09 08:00] VITALS: BP 137/65; PULSE 73; RESP 18; TEMP 36.7; O2SAT 94
[2022-04-09] MEDS: Pregabalin 100 MG CAPSULE PO (08:02)
[2022-04-09] MEDS: LORazepam 0.5 MG TABLET PO (08:02)
[2022-04-09] MEDS: Insulin Lispro 100 UNIT/ML 3 ML VIAL SUBCUT ×2 (08:02→12:08)
[2022-04-09] MEDS: Aspirin Enteric Coated 81 MG TABLET.DR PO (08:02)
[2022-04-09] MEDS: hydrALAZINE HCl 25 MG TABLET PO (08:02)
[2022-04-09] MEDS: Atorvastatin Calcium 20 MG TABLET PO (08:02)
[2022-04-09] MEDS: HaloperidoL 1 MG TABLET 2 MG PO (08:02)
[2022-04-09] MEDS: 0.9 % Sodium Chloride Flush 3 ML SYRINGE IVFLUSH (08:03)
[2022-04-09] MEDS: oxyCODONE HCl Immed Release 5 MG TABLET PO (10:47)
[2022-04-09 11:46] LABS: Glucose, Whole Blood 291 mg/dL (60-115)
[2022-04-09] MEDS: LORazepam 1 MG TABLET 2 MG PO (13:00)
--- NOTE | 2022-04-09 13:07 | P.DS_ITS ---
DS: Providers Provider Date of Service: 04/09/22 Date of admission: 04/06/22 00:36 Primary care physician: Bri Milligan CNP Consults: 04/06/22 10:23 Consult to Psychiatry Routine Consulting Provider: Psych Covering Reason for consultation: Anxiety, crying, confused, Catatonic DS: Diagnosis Discharge Diagnosis (1) Acute renal failure: Status: Acute (2) Acute metabolic encephalopathy: Status: Acute (3) UTI (urinary tract infection): Status: Acute (4) Altered mental status: Status: Acute DS: Summary Hospital Course Hospital Course: Admission note HPI 57-year-old female with past medical history of asthma, bipolar disorder, diabetes, hypertension, IBS, peripheral neuropathy, polysubstance abuse, seizure disorder, who was discharged recently on 03/16, returns to the hospital with reported confusion.? Patient is awake, but I am unable to assess for orientation as she is not answering my questions clearly.? She is shaking her head yes or no but not using words.? The only time she actually verbalized her disc content was when we asked her for a [place] catheter as she was not given us a urine and had more than 400 cc of urine and bladder.? She started screaming no and crying.? History is therefore obtained from ED physician.? It seems that patient was found walking in the halls, police department was called by the neighbors, and therefore patient was brought in to the hospital. Unable to obtain review of system when I ask her there is question she each shakes her head no to chest pain, no to abdominal pain, no no 2 nausea or vomiting.? She shakes her head no to eating and drinking appropriately.? On arrival to the ED patient hemodynamically stable with a blood pressure of 86/42 that significantly improved after receiving 2 L of IV fluids.? Labs are significant for WBC count of 11.7 creatinine of 4.22, BUN of 52, AST of 59, ALT of 33, seems to have been elevated on previous admission Urine is positive for leukocyte Estrace, WBC with minimal squamous cells urine drug screen positive for fentanyl and negative for alcohol level Has CT shows similar appearance of hypodensity and loss of turner-white matter differentiation involving the right occipital lobe compatible with known prior history of infarct Given patient's encephalopathy patient will be admitted for further management Hospital course The patient was admitted to the hospital for evaluation of acute toxic metabolic encephalopathy secondary to medications, acute kidney injury and urine infection. CT scan of the head was negative for any acute findings. Urine tox screening was positive for fentanyl. Creatinine was noticed as above for at time of presentation from dehydration. Improved significantly back to normal baseline with usage of IV fluids. Urine was noticed to be infected and the patient was started on ceftriaxone. She required extra doses of Haldol and At margarito to control her behavioral symptoms. Psychiatry team evaluated the patient and recommended to discontinue both lateral the and Cymbalta. The patient symptoms improved significantly after medication changes and treatment with antibiotic along with improvement in his kidney function. Was able to ambulate as she was evaluated by physical therapy team recommended home therapy. Urine culture grew Enterococcus which is pansensitive. The patient will be discharged home to finish 5 more days of antibiotics and to follow up with Psychiatry as outpatient. Continue Amoxicillin as prescribed Discontinue both Latuda and Cymbalta Follow with psychiatry as outpatient to do physical therapy at home Time Spent with Patient Time attestation: Total time managing care of this patient today ____ minutes. Discharge coordination time: Greater than 30 minutes Quality: Safe Use of Opioids Does Pt have an Active Cancer Diagnosis on the Problem List?: No Quality: Stroke Does the patient have a stroke diagnosis?: No Physical Exam Vital Signs: Vital Signs: Last Vital Signs Temp 98.0 F 04/09/22 08:00 Pulse 73 04/09/22 08:00 Resp 18 04/09/22 08:00 BP 137/65 04/09/22 08:00 Pulse Ox 94 04/09/22 08:00 O2 Del Method 04/09/22 08:00 BMI result Body Mass Index 32.1 Const: Other: Constitutional : Awake, interactive, not in distress Neck : Normal inspection, Supple Cardiovascular : RRR, no JVP, no lower extremity edema Respiratory : good bilateral air entry, no crackles, wheezes or rhonchi Gastrointestinal: soft, lax, Normal bowel sounds, Non tender Skin : Warm, Dry Neurological : Alert & oriented to place and time, No focal deficit DS: Data Data Completed and Pending Completed studies during hospitalization [Text1]: Procedures Detoxification Services for Substance Abuse Treatment (07/15/21) Introduction of Vasopressor into Peripheral Vein, Percutaneous Approach (07/15/21) Labs on day of discharge: Laboratory Results - last 24 hr 04/08/22 04/08/22 04/08/22 15:02 18:52 20:04 Sodium Potassium Chloride Carbon Dioxide Anion Gap BUN Creatinine Estim Creat Clear Calc Estimated GFR POC Glucose 222 H 321 H 321 H Random Glucose Calcium 04/09/22 04/09/22 04/09/22 05:46 07:16 11:40 Sodium 140 Potassium 4.0 Chloride 102 Carbon Dioxide 26 Anion Gap 16 BUN 20 H Creatinine 1.15 Estim Creat Clear Calc 60.4 Estimated GFR 48 POC Glucose 218 H 291 H Random Glucose 255 H Calcium 9.4 Preliminary micro results at discharge 04/05/22 22:58 Blood Culture - Preliminary Blood - Venous No growth after 48 hours. 04/05/22 21:06 Blood Culture - Preliminary Blood - Venous No growth after [address] scan - head: Radiologist's impression: ITS Impressions Head CT 04/05/22 22:34 IMPRESSION: 1. Similar appearance of hypodensity and loss of turner-white matter differentiation involving the right occipital lobe compatible with known prior infarct. No acute intracranial abnormality. Discharge Plan Discharge Anticipated Discharge Date/Time: 04/08/22 14:18 Patient Disposition: Home Health Service Discharge Diagnosis: Acute delerium Urine infection Referrals: [facility] [Outside] - 1 Week Bri Milligan CNP [Primary Care Provider] - 1 Week Discharge Medications: New amoxicillin 500 mg capsule 500 mg PO Q8H 5 Days Qty: 15 0RF Continued aspirin 81 mg Tablet,Delayed Release (Dr/Ec) 81 mg PO DAILY Qty: 30 0RF lorazepam 0.5 mg Tablet 0.5 mg PO DAILY metformin 1,000 mg tablet 1,000 mg PO BIDWM multivitamin Tablet 1 tab PO DAILY atorvastatin 20 mg tablet 20 mg PO DAILY Januvia 100 mg tablet 100 tab PO BEDTIME quetiapine 200 mg tablet 1 tab PO BEDTIME hydralazine 25 mg tablet 1 tab PO TID clonidine HCl 0.2 mg tablet 1 tab PO TID PRN (Reason: Anxiety) pregabalin 100 mg capsule 1 cap PO TID prazosin 1 mg capsule 1 mg PO BEDTIME Protocol: Hold for SBP< HOLD for SBP < : 90 clonazepam 0.5 mg tablet 1 tab PO DAILY PRN (Reason: panic attack) haloperidol 1 mg tablet 1 mg PO TID lisinopril 30 mg tablet 1 tab PO DAILY polyethylene glycol 3350 17 gram/dose powder 17 g PO DAILY haloperidol 2 mg tablet 1 tab PO TID Discontinued duloxetine 30 mg capsule,delayed release(DR/EC) 30 mg PO BID Latuda 40 mg Tablet 40 mg PO DAILY@1800 Qty: 30 0RF Discharge Orders: Discharge Order (Routine); Ordered 04/09/22 Ordered By: Nisha Velez Diet: Advance to usual diet Activity on Discharge: As tolerated Stand Alone Forms: Patient Portal Discharge page Care Plan Goals: Read below Health Concerns: Read below Plan of Treatment: Read below Assessment: You were admitted to the hospital for evaluation of altered mentation. noted to have urine infection with increase delerium. treated with IV antibiotics as your urine culture grew bacteria called Enterococcus. To finish 5 more days of antibiotics. You were evaluated by psychiatry team who recommended to discontinue both Latuda and Cymbalta. Continue Amoxicillin as prescribed Discontinue both Latuda and Cymbalta Follow with psychiatry as outpatient to do physical therapy at home
--- NOTE | 2022-04-09 13:08 | MHC.CM.PN ---
PATIENT TO RETURN HOME WITH RESUMPTION OF HER [facility]
--- NOTE | 2022-04-09 13:37 | MHC.CM.PN ---
imm 04/09 in chart
== END 2022-04-09 13:48 | disposition home health service (06) | DRG 689 ==
LOC: HO.ED 23:46 → HO.EDOVER 04-06 00:40 → HO.S3 04-06 02:06
PROVIDERS: Admitting Provider Internal Medicine; Emergency Provider Internal Medicine; PCP Nurse Practitioner Family; Visit Provider Student in an Organized Health Care Education/Training Program
DX: N39.0 Urinary tract infection, site not specified (principal); G92.8 Other toxic encephalopathy; N17.9 Acute kidney failure, unspecified; F05 Delirium due to known physiological condition; E86.0 Dehydration; E11.42 Type 2 diabetes mellitus with diabetic polyneuropathy; F31.9 Bipolar disorder, unspecified; I95.9 Hypotension, unspecified; T50.915A Adverse effect of multiple unspecified drugs, medicaments and biological substances, initial encounter; Z20.822 Contact with and (suspected) exposure to COVID-19; Z86.73 Personal history of transient ischemic attack (TIA), and cerebral infarction without residual deficits; Z88.2 Allergy status to sulfonamides; Z88.5 Allergy status to narcotic agent; Z88.8 Allergy status to other drugs, medicaments and biological substances; Z79.82 Long term (current) use of aspirin; Z79.84 Long term (current) use of oral hypoglycemic drugs; Z79.899 Other long term (current) drug therapy
CPT/HCPCS: 36415; 70450; 80048; 80076; 80307; 81001; 81003; 82077; 82550; 82947; 83605; 85025; 85027; 87040; 87086; 87088; 87186; 87635; 93005; 97162; 99285; C1758; J0290; J0696; J1200; J1643; J2060

== ENCOUNTER 2022-04-11 17:27 | Emergency (ER) | payer OTHER, SELFPAY ==
--- NOTE | 2022-04-11 17:57 | ECG_ITS ---
Test Reason : weakness Blood Pressure : / mmHG Vent. Rate : 055 BPM Atrial Rate : 055 BPM P-R Int : 178 ms QRS Dur : 092 ms QT Int : 486 ms P-R-T Axes : 032 009 005 degrees QTc Int : 464 ms Sinus bradycardia with sinus arrhythmia Otherwise normal ECG When compared with ECG of 05-APR-2022 21:20, No significant change was found Referred By: Malka Wood Electronically Signed By:Jeffrey Harrington
[2022-04-11 17:59] VITALS: BMI 48.4
--- NOTE | 2022-04-11 18:12 | ED.GENADULT ---
HPI - General Adult General Chief complaint: General Medical Stated complaint: WEAK,MULTI FALLS W/CONTUSIONS,CONFUSED PER [facility] Time Seen by Provider: 04/11/22 17:49 Source: patient and EMS Mode of arrival: EMS Limitations: altered mental status History of Present Illness HPI narrative: Patient comes to the emergency room from home. Patient has [facility] called 911, chief complain of multiple falls, increased confusion. Patient reports that she has not fallen. Patient states that she has no idea why she is here. Patient seems confused and lethargic. atient states that her main complaint today is that she feels very weak. Patient states that she was discharged couple of days ago and she has not recovered completely. Patient was discharged with a prescription amoxicillin. Of note, patient is known to our service, patient frequently overdoses with fentanyl. Also, patient was discharged 2 days ago, patient was admitted for DANY, encephalopathy secondary to urinary tract infection. Patient is somnolent but arousable, awake and alert and unable to provide any significant history. Patient is adamant that she has not used fentanyl ?in who knows how long . However, patient tested positive for fentanyl 5 days ago. Also, patient is adamant that she did not fall Related Data Home Medications Medication Instructions Recorded Confirmed lorazepam 0.5 mg tablet 0.5 mg PO DAILY 07/15/21 04/06/22 metformin 1,000 mg tablet 1,000 mg PO BIDWM 09/03/21 04/06/22 multivitamin 1 tab PO DAILY 09/03/21 04/06/22 atorvastatin 20 mg tablet 20 mg PO DAILY 01/15/22 04/06/22 sitagliptin phosphate 100 mg 100 tab PO BEDTIME 01/15/22 04/06/22 tablet (Januvia) clonidine HCl 0.2 mg tablet 1 tab PO TID PRN Anxiety 03/08/22 04/06/22 hydralazine 25 mg tablet 1 tab PO TID 03/08/22 04/06/22 prazosin 1 mg capsule 1 mg PO BEDTIME 03/08/22 04/06/22 pregabalin 100 mg capsule 1 cap PO TID 03/08/22 04/06/22 quetiapine 200 mg tablet 1 tab PO BEDTIME 03/08/22 04/06/22 clonazepam 0.5 mg tablet 1 tab PO DAILY PRN panic attack 04/06/22 04/06/22 haloperidol 1 mg tablet 1 mg PO TID 04/06/22 04/06/22 haloperidol 2 mg tablet 1 tab PO TID 04/06/22 04/06/22 lisinopril 30 mg tablet 1 tab PO DAILY 04/06/22 04/06/22 polyethylene glycol 3350 17 17 g PO DAILY 04/06/22 04/06/22 gram/dose oral powder Previous Rx's Medication Instructions Recorded aspirin 81 mg tablet,delayed 81 mg PO DAILY #30 tabs 03/16/22 release amoxicillin 500 mg capsule 500 mg PO Q8H 5 days #15 caps 04/09/22 Allergies Allergy/AdvReac Type Severity Reaction Status Date / Time morphine [MORPHINE] Allergy Unknown RASH, vomit Verified 01/15/22 00:48 prednisone Allergy Unknown hives Verified 01/15/22 00:48 Sulfa (Sulfonamide Allergy Unknown UNKNOWN, Verified 01/15/22 00:48 Antibiotics) hives [SULFA (SULFONAMIDE ANTIBIOTICS)] Review of Systems Review of Systems: Complaining of generalized weakness. Yes Unobtainable due to mental status [facility] Past Medical History Medical History Asthma Bipolar disorder Chronic pain Diabetes Hypertension IBS (irritable bowel syndrome) Opioid use disorder Peripheral neuropathy Polysubstance abuse Seizure Surgical History History of appendectomy Social History Social History Household Members: Unknown / Unable to assess Household Members Other:: roommate Housing: Unknown / Unable to assess Do you presently have visiting nurse or other home services: No Unable to assess alcohol history related to: Refusing to respond Alcohol intake: unknown Patient Tobacco Use Status: Refuse Tobacco use screen Tobacco use type: Cigarette Cigarette Packs Per Day: 1 Cigarettes Per Day: 20.0 Substance Use Type: Painkillers Advance Directives: Yes Advance Directives on File: Yes Advance Directives Date on File: 09/03/21 service: No Current occupational status: disabled Physical Exam ED Vital Signs: Vital Signs - 24 hr 04/11/22 20:52 Temperature 98.1 F Pulse Rate 53 Respiratory Rate 12 Blood Pressure 108/49 L Pulse Oximetry 95 Oxygen Delivery Method Room Air BMI result Body Mass Index 48.4 Const Other: Appearance: Alert. Oriented X3. No acute distress. Very somnolent but easily arousable Eyes: Pupils equal, round and reactive to light. ENT: Pharynx normal. Neck: Normal inspection. Neck supple. No lymph nodes noted. No crepitus CVS: Normal heart rate and rhythm. Pulses normal. Normal S1 and S2 Respiratory: No respiratory distress. Breath sounds normal. No Wheezing. No rales Abdomen: Soft and nontender. No rigidity. No distention. Skin: Skin warm and dry. Normal skin color. Normal skin turgor. Extremities: No lower extremity edema. No Lacerations. No Rash Neuro: Oriented X 3. No motor deficit. No sensory deficit. Moving all extremities. No slurred speech. CN 2 through 12 grossly intact Psych: calm, cooperative, normal affect Course Course Course Narrative: -on arrival, patient's blood pressure in the 80s. -patient has element that she did not use fentanyl -patient was discharged 2 days ago for UTI. -all of patient's labs pending. Medications Administered Discontinued Medications Generic Name Dose Route Start Last Admin Trade Name Freq PRN Reason Stop Dose Admin Sodium Chloride 2,000 mls @ 999 mls/hr 04/11/22 18:11 04/11/22 18:17 Ns IVCONT 04/11/22 20:11 999 mls/hr .Q2H1M ONE Administration Medical Decision Making Medical Decision Making [facility] Narrative: -patient's initial blood pressure was in the 80s. Patient seem a bit confused. Patient given fluids and placed in Trendelenburg position. Patient's mental status improved, alert and oriented x3. Given that the patient was hypotensive, unclear reason, patient is very weak. I discussed with the patient that ideally we should admit her. Patient declined admission. Patient states she just left the hospital. I offered to the patient physical therapy and case management consult. Patient declined, states that she would like to be discharged home UTI negative, lactic acid improved with fluids. Patient likely had hypotension secondary to dehydration Differential Diagnosis Differential Diagnoses: The differential diagnosis associated with the presentation includes (Sepsis, UTI, deconditioning) Admission/Observation Consideration of admission/observation: Escalation of care including admission/observation considered (Patient came with a low blood pressure, initially in the 80s. Patient was placed in Trendelenburg and given fluids. Patient refused admission or placement for short-term rehab) Lab Data MDM Lab Attestation statement: I reviewed the patient's lab results. 04/11/22 18:12 04/11/22 18:12 Labs: Lab Results 04/11/22 04/11/22 04/11/22 Range/Units 18:12 18:12 18:12 WBC 9.7 (4.8-10.8) X10*3/uL RBC 4.83 (4.20-5.50) X10*6/uL Hgb 13.3 (12.0-16.0) g/dl Hct 41.2 (37.0-47.0) % MCV 85.3 (80.0-98.0) fL MCH 27.5 (27.0-33.0) pg MCHC 32.3 (31.0-35.0) g/dl RDW 15.8 (11.0-16.0) % Plt Count 253 (160-400) X10*3/uL MPV 11.8 (9.4-12.3) fL Immature Gran % (Auto) 0.3 (0.0-0.4) % Neut % (Auto) 63.9 (45-73) % Lymph % (Auto) 29.1 (20-40) % [place] % (Auto) 3.9 (2-11) % Eos % (Auto) 2.0 (0-4) % Baso % (Auto) 0.8 (0-2) % Lymph # (Auto) 2.8 (1.2-4.9) X10*3/uL [place] # (Auto) 0.4 (0.1-1.2) X10*3/uL Eos # (Auto) 0.2 (0.0-0.4) X10*3/uL Baso # (Auto) 0.1 (0.0-0.2) X10*3/uL Abs Immat Gran (auto) 0.03 (0.00-0.03) X10*3/uL Absolute Neuts (auto) 6.2 (2.0-8.3) x10*3/uL Absolute Nucleated RBC 0.000 (0.0-0.012) X10*3/uL Nucleated RBC % (auto) 0.0 (0.0-0.2) /100WBC Sodium 137 (135-145) mmol/L Potassium 4.9 D (3.3-5.1) mmol/L Chloride 103 (96-108) mmol/L Carbon Dioxide 26 (22-29) mmol/L Anion Gap 13 (12-20) BUN 19 H (9-16) mg/dL Creatinine 1.07 (0.5-1.4) mg/dL Estim Creat Clear Calc 81.4 Estimated GFR 53 Random Glucose 292 H (60-115) mg/dL Lactic Acid 2.3 H* (0.5-2.0) mmol/L Lactic Acid F/U @ 2Hr (0.5-2.0) mmol/L Calcium 9.3 (8.4-10.2) mg/dL Total Bilirubin 0.6 (0.0-1.0) mg/dL Direct Bilirubin < 0.2 (0.0-0.5) mg/dL AST 18 (5-31) U/L ALT 21 (0-31) U/L Alkaline Phosphatase 119 H (39-117) U/L Troponin I High Sens (<3.5-17.0) ng/L Total Protein 7.1 (6.5-8.0) g/dL Albumin 4.2 (3.5-5.0) g/dL Urine Color Urine Appearance Urine pH (5.0-9.0) Ur Specific Warden (1.005-1.025) Urine Protein (Neg-Trace) mg/dL Urine Glucose (UA) (Negative) mg/dL Urine Ketones (Negative) mg/dL Urine Blood (Negative) Urine Nitrite (Negative) Ur Leukocyte Esterase (Negative) Urine RBC (0-2) /HPF Urine WBC (0-5) /HPF Ur Squamous Epith Cells (0-2) /HPF Urine Bacteria (None Seen) Hyaline Casts (0-2) /LPF Urine Opiates Screen (Not Detect) Urine Fentanyl Screen (Not Detect) Ur Barbiturates Screen (Not Detect) Ur Phencyclidine Scrn (Not Detect) Ur Amphetamines Screen (Not Detect) U Benzodiazepines Scrn (Not Detect) Urine Cocaine Screen (Not Detect) U Marijuana (THC) Screen (Not Detect) Ethyl Alcohol < 10 mg/dL COVID-19 (MARLYS) (Negative) COVID-19 Clin Com 0204/11/22 04/11/22 Range/Units 18:12 18:12 18:30 WBC (4.8-10.8) X10*3/uL RBC (4.20-5.50) X10*6/uL Hgb (12.0-16.0) g/dl Hct (37.0-47.0) % MCV (80.0-98.0) fL MCH (27.0-33.0) pg MCHC (31.0-35.0) g/dl RDW (11.0-16.0) % Plt Count (160-400) X10*3/uL MPV (9.4-12.3) fL Immature Gran % (Auto) (0.0-0.4) % Neut % (Auto) (45-73) % Lymph % (Auto) (20-40) % [place] % (Auto) (2-11) % Eos % (Auto) (0-4) % Baso % (Auto) (0-2) % Lymph # (Auto) (1.2-4.9) X10*3/uL [place] # (Auto) (0.1-1.2) X10*3/uL Eos # (Auto) (0.0-0.4) X10*3/uL Baso # (Auto) (0.0-0.2) X10*3/uL Abs Immat Gran (auto) (0.00-0.03) X10*3/uL Absolute Neuts (auto) (2.0-8.3) x10*3/uL Absolute Nucleated RBC (0.0-0.012) X10*3/uL Nucleated RBC % (auto) (0.0-0.2) /100WBC Sodium (135-145) mmol/L Potassium (3.3-5.1) mmol/L Chloride (96-108) mmol/L Carbon Dioxide (22-29) mmol/L Anion Gap (12-20) BUN (9-16) mg/dL Creatinine (0.5-1.4) mg/dL Estim Creat Clear Calc Estimated GFR Random Glucose (60-115) mg/dL Lactic Acid (0.5-2.0) mmol/L Lactic Acid F/U @ 2Hr (0.5-2.0) mmol/L Calcium (8.4-10.2) mg/dL Total Bilirubin (0.0-1.0) mg/dL Direct Bilirubin (0.0-0.5) mg/dL AST (5-31) U/L ALT (0-31) U/L Alkaline Phosphatase (39-117) U/L Troponin I High Sens < 3.5 (<3.5-17.0) ng/L Total Protein (6.5-8.0) g/dL Albumin (3.5-5.0) g/dL Urine Color Yellow Urine Appearance Clear Urine pH 6.0 (5.0-9.0) Ur Specific Warden >= 1.030 H (1.005-1.025) Urine Protein Negative (Neg-Trace) mg/dL Urine Glucose (UA) >=1000 H (Negative) mg/dL Urine Ketones Negative (Negative) mg/dL Urine Blood Negative (Negative) Urine Nitrite Negative (Negative) Ur Leukocyte Esterase Negative (Negative) Urine RBC 0-2 (0-2) /HPF Urine WBC 0-5 (0-5) /HPF Ur Squamous Epith Cells 0-2 (0-2) /HPF Urine Bacteria None Seen (None Seen) Hyaline Casts 0-2 (0-2) /LPF Urine Opiates Screen (Not Detect) Urine Fentanyl Screen (Not Detect) Ur Barbiturates Screen (Not Detect) Ur Phencyclidine Scrn (Not Detect) Ur Amphetamines Screen (Not Detect) U Benzodiazepines Scrn (Not Detect) Urine Cocaine Screen (Not Detect) U Marijuana (THC) Screen (Not Detect) Ethyl Alcohol mg/dL COVID-19 (MARLYS) Negative (Negative) COVID-19 Clin Com See Note 04/11/22 04/11/22 Range/Units 18:30 21:12 WBC (4.8-10.8) X10*3/uL RBC (4.20-5.50) X10*6/uL Hgb (12.0-16.0) g/dl Hct (37.0-47.0) % MCV (80.0-98.0) fL MCH (27.0-33.0) pg MCHC (31.0-35.0) g/dl RDW (11.0-16.0) % Plt Count (160-400) X10*3/uL MPV (9.4-12.3) fL Immature Gran % (Auto) (0.0-0.4) % Neut % (Auto) (45-73) % Lymph % (Auto) (20-40) % [place] % (Auto) (2-11) % Eos % (Auto) (0-4) % Baso % (Auto) (0-2) % Lymph # (Auto) (1.2-4.9) X10*3/uL [place] # (Auto) (0.1-1.2) X10*3/uL Eos # (Auto) (0.0-0.4) X10*3/uL Baso # (Auto) (0.0-0.2) X10*3/uL Abs Immat Gran (auto) (0.00-0.03) X10*3/uL Absolute Neuts (auto) (2.0-8.3) x10*3/uL Absolute Nucleated RBC (0.0-0.012) X10*3/uL Nucleated RBC % (auto) (0.0-0.2) /100WBC Sodium (135-145) mmol/L Potassium (3.3-5.1) mmol/L Chloride (96-108) mmol/L Carbon Dioxide (22-29) mmol/L Anion Gap (12-20) BUN (9-16) mg/dL Creatinine (0.5-1.4) mg/dL Estim Creat Clear Calc Estimated GFR Random Glucose (60-115) mg/dL Lactic Acid (0.5-2.0) mmol/L Lactic Acid F/U @ 2Hr 2.0 (0.5-2.0) mmol/L Calcium (8.4-10.2) mg/dL Total Bilirubin (0.0-1.0) mg/dL Direct Bilirubin (0.0-0.5) mg/dL AST (5-31) U/L ALT (0-31) U/L Alkaline Phosphatase (39-117) U/L Troponin I High Sens (<3.5-17.0) ng/L Total Protein (6.5-8.0) g/dL Albumin (3.5-5.0) g/dL Urine Color Urine Appearance Urine pH (5.0-9.0) Ur Specific Warden (1.005-1.025) Urine Protein (Neg-Trace) mg/dL Urine Glucose (UA) (Negative) mg/dL Urine Ketones (Negative) mg/dL Urine Blood (Negative) Urine Nitrite (Negative) Ur Leukocyte Esterase (Negative) Urine RBC (0-2) /HPF Urine WBC (0-5) /HPF Ur Squamous Epith Cells (0-2) /HPF Urine Bacteria (None Seen) Hyaline Casts (0-2) /LPF Urine Opiates Screen Not Detected (Not Detect) Urine Fentanyl Screen Not Detected (Not Detect) Ur Barbiturates Screen Not Detected (Not Detect) Ur Phencyclidine Scrn Not Detected (Not Detect) Ur Amphetamines Screen Not Detected (Not Detect) U Benzodiazepines Scrn Not Detected (Not Detect) Urine Cocaine Screen Not Detected (Not Detect) U Marijuana (THC) Screen Not Detected (Not Detect) Ethyl Alcohol mg/dL COVID-19 (MARLYS) (Negative) COVID-19 Clin Com Independent Interpretation I performed an independent interpretation of an: EKG (My interpretation of EKG: Sinus bradycardia, heart rates 55, no ST segment depression, nonspecific T-wave inversion in V3, QTC 464) External Record Review External record reviewed: Inpatient record (Patient was discharged 2 days ago, was admitted for DANY, encephalopathy and UTI) Tests considered The following testing was considered but not selected: CT scan was ordered, initially was reported the patient had falls. Patient is awake, alert and oriented x3, patient is adamant that she did not fall and is refusing head CT Discharge Plan Discharge Clinical Impression: Dehydration, Hypotension Patient Disposition: Home, Self-Care Instructions: Dehydration (ED) Additional Instructions: Please follow-up with your primary care physician tomorrow. If you have any worsening or new symptoms, please return to the emergency room or call 911 Prescriptions: No Action aspirin 81 mg Tablet,Delayed Release (Dr/Ec) 81 mg PO DAILY Qty: 30 0RF lorazepam 0.5 mg Tablet 0.5 mg PO DAILY metformin 1,000 mg tablet 1,000 mg PO BIDWM multivitamin Tablet 1 tab PO DAILY atorvastatin 20 mg tablet 20 mg PO DAILY Januvia 100 mg tablet 100 tab PO BEDTIME quetiapine 200 mg tablet 1 tab PO BEDTIME hydralazine 25 mg tablet 1 tab PO TID clonidine HCl 0.2 mg tablet 1 tab PO TID PRN (Reason: Anxiety) pregabalin 100 mg capsule 1 cap PO TID prazosin 1 mg capsule 1 mg PO BEDTIME Protocol: Hold for SBP< HOLD for SBP < : 90 clonazepam 0.5 mg tablet 1 tab PO DAILY PRN (Reason: panic attack) haloperidol 1 mg tablet 1 mg PO TID lisinopril 30 mg tablet 1 tab PO DAILY polyethylene glycol 3350 17 gram/dose powder 17 g PO DAILY haloperidol 2 mg tablet 1 tab PO TID amoxicillin 500 mg capsule 500 mg PO Q8H 5 Days Qty: 15 0RF
[2022-04-11] MEDS: 0.9 % Sodium Chloride 2,000 ML 999 ML IVCONT (18:17)
[2022-04-11 18:19] LABS: MANUAL DIFF FLAG NO
[2022-04-11 18:26] LABS: Basophils Absolute Auto 0.1 X10*3/uL (0.0-0.2); Basophils Percent Auto 0.8 % (0-2); Eosinophils Absolute Auto 0.2 X10*3/uL (0.0-0.4); Hematocrit 41.2 % (37.0-47.0); Hemoglobin 13.3 g/dl (12.0-16.0); Imm Gran Abs Auto 0.03 X10*3/uL (0.00-0.03); Imm Gran Pct Auto 0.3 % (0.0-0.4); Lymphocytes Absolute Auto 2.8 X10*3/uL (1.2-4.9); Lymphocytes Percent Auto 29.1 % (20-40); Mean Corpuscular HGB Conc 32.3 g/dl (31.0-35.0); Mean Corpuscular Hemoglobin 27.5 pg (27.0-33.0); Mean Corpuscular Volume 85.3 fL (80.0-98.0); Mean Platelet Volume 11.8 fL (9.4-12.3); Monocytes Absolute Auto 0.4 X10*3/uL (0.1-1.2); Monocytes Percent Auto 3.9 % (2-11); Neutrophils Absolute Auto 6.2 x10*3/uL (2.0-8.3); Neutrophils Percent Auto 63.9 % (45-73); Platelet Count 253 X10*3/uL (160-400); Red Blood Count 4.83 X10*6/uL (4.20-5.50); Red Cell Distribution Width 15.8 % (11.0-16.0); White Blood Count 9.7 X10*3/uL (4.8-10.8)
[2022-04-11 18:42] LABS: Appearance Urine Clear; Color Urine Yellow; Glucose Urine UA >=1000 mg/dL (Negative); Leukocyte Esterase Urine Negative (Negative); Nitrite Urine Negative (Negative); Specific Gravity - Urine >= 1.030 (1.005-1.025); UMIC TRIGGER UACC YES; Urine Blood Negative (Negative); Urine Ketones Negative (Negative); Urine Protein Negative (Neg-Trace)
[2022-04-11 18:43] LABS: COVID-19 Test Negative (Negative); IDNOW Serial# 6674DD1D
[2022-04-11 18:48] LABS: Amphetamine Screen Urine Not Detected (Not Detect); Barbiturates, Urine Not Detected (Not Detect); Benzodiazepines Screen Urine Not Detected (Not Detect); Cannabinoid Screen Urine Not Detected (Not Detect); Cocaine Screen Urine Not Detected (Not Detect); Fentanyl, urine Not Detected (Not Detect); Opiate Screen Urine Not Detected (Not Detect); Phencyclidine Screen Urine Not Detected (Not Detect)
[2022-04-11 19:05] LABS: Alanine Aminotransferase 21 U/L (0-31); Albumin Level 4.2 g/dL (3.5-5.0); Alkaline Phosphatase 119 U/L (39-117); Anion Gap 13 (12-20); Aspartate Amino Transferase 18 U/L (5-31); Bilirubin Direct < 0.2 mg/dL (0.0-0.5); Bilirubin Total 0.6 mg/dL (0.0-1.0); Blood Urea Nitrogen 19 mg/dL (9-16); Calcium 9.3 mg/dL (8.4-10.2); Carbon Dioxide 26 mmol/L (22-29); Chloride 103 mmol/L (96-108); Creatinine Clr Calc Pharmacy 81.4; Estimated Glomerular Filt Rate 53; Ethanol < 10 mg/dL; Glucose Random 292 mg/dL (60-115); Potassium 4.9 mmol/L (3.3-5.1); Sodium 137 mmol/L (135-145); Total Protein 7.1 g/dL (6.5-8.0); Troponin-I High Sensitivity < 3.5 ng/L (<3.5-17.0)
[2022-04-11 19:06] LABS: Bacteria Urine None Seen (None Seen); Hyaline Casts Urine 0-2 /LPF (0-2); RBC Urine 0-2 /HPF (0-2); Squamous Epithelial Cell Urine 0-2 /HPF (0-2); WBC Urine 0-5 /HPF (0-5)
[2022-04-11 19:11] LABS: Lactic Acid 2.3 mmol/L (0.5-2.0)
[2022-04-11 20:19] LABS: Reflex Lactate? Lactic Acid Added
[2022-04-11 20:52] VITALS: BP 108/49; PULSE 53; RESP 12; TEMP 36.7; O2SAT 95
--- NOTE | 2022-04-11 20:55 | PC.NURSE ---
Patient is alert to alert to self and place. Patient continues to present with lethargy and forgetfulness. Patient c/o headache. Patient denies any other sites of pain. Patient has 20 G IV line in R AC. 1 L NS bolus infusing. Patient is oriented to ED room, call michaud within patient's reach, patient instructed in call michaud use.
--- NOTE | 2022-04-11 21:56 | PC.NURSE ---
Patient requesting discharge home. DR. Wood notified. Provider will talk to the patient to discuss plan of care/treatment.
[2022-04-11 23:30] VITALS: BP 101/50; PULSE 58; RESP 13; TEMP 36.8; O2SAT 95
== END 2022-04-11 23:41 | disposition home or self-care (01) ==
PROVIDERS: Emergency Provider Emergency Medicine
DX: E86.0 Dehydration (principal); I95.9 Hypotension, unspecified; Z20.822 Contact with and (suspected) exposure to COVID-19; Z20.828 Contact with and (suspected) exposure to other viral communicable diseases; Z79.899 Other long term (current) drug therapy
CPT/HCPCS: 36415; 80048; 80076; 80307; 81001; 82077; 83605; 84484; 85025; 87040; 87635; 93005; 99284

== ENCOUNTER 2022-04-23 12:57 | Inpatient (IN) | payer OTHER, SELFPAY ==
[2022-04-23] VITALS (7 sets, daily range): BP systolic 160–193; BP diastolic 76–90; PULSE 92–101; RESP 18–24; TEMP 36.8–38.7; O2SAT 96–99; BMI 32.1
--- NOTE | ~2022-04-23 | MR_ITS ---
EXAMINATION: MR BRAIN WITHOUT CONTRAST CLINICAL INFORMATION: Altered mental status. COMPARISON: CTA had and neck from 04/23/2022. TECHNIQUE: MRI of the brain was obtained using routine sequences without contrast. FINDINGS: Significantly motion degraded exam. Chronic small region of diffusion-weighted hyperintensity within the posterior right occipital lobe. There is also chronic laminar T1 shortening in this distribution. Changes remain consistent with sequela of chronic encephalomalacia/laminar necrosis. No demonstrated additional focal restricted diffusion is demonstrated to suggest acute or subacute cerebral ischemia. The ventricles are normal in morphology and size. No demonstrated abnormal mass effect. No midline shift. MR/MR head/brain wo con IMPRESSION: Limited motion degraded exam. No demonstrated overt acute intracranial abnormalities. 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
--- NOTE | ~2022-04-23 | FL_ITS ---
EXAMINATION: XR LUMBAR PUNCTURE CLINICAL INFORMATION: Encephalopathy. Question meningitis. COMPARISON: None TECHNIQUE: Medical necessity was determined by the covering hospitalist Dr. Smith who signed informed consent as the patient's healthcare proxy could not be reached. The patient was positioned in the prone position. The back was prepped and draped in the usual sterile fashion. Using fluoroscopic guidance a 22-gauge spinal needle, interlaminar access to the spinal canal at the L1-L2 level was obtained. Opening pressure was 21 cm of water. 8 mL of clear CSF fluid was removed. Diagnostic specimen was sent as requested by the ordering physician. FINDINGS: There is posterior fusion hardware in the lumbar spine. FLUOROSCOPY TIME: 1 minute DOSE AREA PRODUCT: 0.2 [place] per centimeter squared. 1 saved fluoroscopic image. FL/FL guided lumbar puncture LP IMPRESSION: Fluoroscopy-guided lumbar puncture.
--- NOTE | ~2022-04-23 | CT_ITS ---
EXAMINATION: CT ANGIOGRAM NECK WITH CONTRAST CT ANGIOGRAM BRAIN WITH CONTRAST CLINICAL INFORMATION: Altered mental status. Global aphasia. COMPARISON: CTA head and neck 03/15/2022. TECHNIQUE: Test bolus sequences followed by intravenous administration 100 mL of Omnipaque 350. Helical imaging was performed in the axial plane from the thoracic inlet to the skull vertex. Delayed postcontrast imaging of the head was also performed. The data was processed at the nuclear cardiology technologist workstation for generation of MIP sequences. Angled MIPs and volume rendered reformatted images were also generated at an offline 3D workstation. Stenoses are assessed in accordance with NASCET criteria unless otherwise indicated. This CT examination was performed using dose optimization techniques as appropriate, variously including the following: *Automated exposure control *Adjustment of mA and/or kV according to patient size (this includes techniques or standardized protocols for targeted exams where dose is matched to indication/reason for exam; i.e. extremities or head) *Use of iterative reconstruction technique DLP: 2628 mGy-cm FINDINGS: Head CT: There is no intracranial hemorrhage, large acute infarction, or mass lesion. The ventricles are normal in size and configuration without evidence of hydrocephalus. A small focus of chronic infarction is seen within the right occipital lobe. There is no abnormal enhancement. The visualized paranasal sinuses and mastoid air cells are clear. Neck CTA: The aortic arch and great vessel origins are patent. There is no aberrant right subclavian artery which demonstrates a retroesophageal course. Both common and internal carotid arteries are patent. Both vertebral arteries are patent. The left vertebral artery arises directly from the aortic arch. Head CTA: No intracranial aneurysm is seen. The intracranial internal carotid arteries appear normal. The anterior cerebral artery, anterior communicating artery, and middle cerebral arteries appear normal. The intradural vertebral arteries and basilar artery appear normal. The posterior cerebral arteries appear normal. Non-vascular findings: There is advanced dental disease. Cervical soft tissues are within normal limits. There is atrophic change within the thoracic musculature. Mild degenerative changes are seen within the spine. CT/CT angio head neck IMPRESSION: CT HEAD: No intracranial hemorrhage or large acute infarction. 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 CTA NECK: No hemodynamically significant stenosis in the major arteries of the neck. CTA HEAD: No large vessel occlusion or significant stenosis within the intracranial circulation.
--- NOTE | ~2022-04-23 | XR_ITS ---
EXAMINATION: XR CHEST CLINICAL INFORMATION: Unknown fall COMPARISON: 03/08/2022 TECHNIQUE: Frontal view of the chest was obtained. FINDINGS: No focal consolidation, pulmonary edema, or pleural effusion. Stable cardiomediastinal silhouette. XR/XR chest 1V IMPRESSION: No acute cardiopulmonary findings.
--- NOTE | ~2022-04-23 | XR_ITS ---
EXAMINATION: XR THORACOLUMBAR SPINE CLINICAL INFORMATION: Lumbar spine fusion next field multiple prior examinations including CT scan of the abdomen and pelvis March 2022. COMPARISON: None TECHNIQUE: AP and lateral views of the dorsal spine. FINDINGS: Vertebral bodies are normally aligned. Multilevel spondylosis manifested by endplate osteophytes. There are postoperative changes with posterior instrumentation in the lumbar spine is seen previously. Compression of the superior endplate of L3 again noted. Surrounding soft tissues unremarkable. Contrast present within the kidneys consistent with concomitant CT angiogram examination performed same day XR/XR thoracic spine 2V IMPRESSION: No acute abnormality Spondylosis of the dorsal spine. Stable postoperative and posttraumatic changes in the lumbar spine
--- NOTE | 2022-04-23 13:05 | ECG_ITS ---
Test Reason : AMS Blood Pressure : / mmHG Vent. Rate : 099 BPM Atrial Rate : 099 BPM P-R Int : 134 ms QRS Dur : 078 ms QT Int : 386 ms P-R-T Axes : 032 018 060 degrees QTc Int : 495 ms Normal sinus rhythm Prolonged QT Abnormal ECG When compared with ECG of 11-APR-2022 18:58, Vent. rate has increased BY 44 BPM Non-specific change in ST segment in Lateral leads Referred By: Malka Wood Electronically Signed By:Jeffrey Harrington
[2022-04-23 13:06] LABS: Glucose, Whole Blood 342 mg/dL (60-115)
--- NOTE | 2022-04-23 13:36 | ED_ITS ---
HPI - Altered Mental Status General Chief Complaint: Altered Mental Status Stated Complaint: stroke alert,lkwt unk, fast=3,found down Time Seen by Provider: 04/23/22 13:01 Source: EMS Mode of arrival: EMS Limitations: altered mental status History of Present Illness HPI narrative: Patient comes to the emergency room by ambulance from her house. Patient was found by her cardboard cutter awake, unresponsive, unable to follow commands. Less than the patient was seen well was approximately 2-3 days ago. EMS brought her here to the emergency room. Patient unable to follow any commands, patient awake, very encephalopathic. Patient is known to overdose with fentanyl. Also, at the end of April of this year, patient was admitted for metabolic encephalopathy secondary to a UTI. EMS reports that patient was found in bed, looks the patient has been urinating and defecating on herself for several days. Related Data Home Medications Medication Instructions Recorded Confirmed lorazepam 0.5 mg tablet 0.5 mg PO DAILY 07/15/21 04/06/22 metformin 1,000 mg tablet 1,000 mg PO BIDWM 09/03/21 04/06/22 multivitamin 1 tab PO DAILY 09/03/21 04/06/22 atorvastatin 20 mg tablet 20 mg PO DAILY 01/15/22 04/06/22 sitagliptin phosphate 100 mg 100 tab PO BEDTIME 01/15/22 04/06/22 tablet (Januvia) clonidine HCl 0.2 mg tablet 1 tab PO TID PRN Anxiety 03/08/22 04/06/22 hydralazine 25 mg tablet 1 tab PO TID 03/08/22 04/06/22 prazosin 1 mg capsule 1 mg PO BEDTIME 03/08/22 04/06/22 pregabalin 100 mg capsule 1 cap PO TID 03/08/22 04/06/22 quetiapine 200 mg tablet 1 tab PO BEDTIME 03/08/22 04/06/22 clonazepam 0.5 mg tablet 1 tab PO DAILY PRN panic attack 04/06/22 04/06/22 haloperidol 1 mg tablet 1 mg PO TID 04/06/22 04/06/22 haloperidol 2 mg tablet 1 tab PO TID 04/06/22 04/06/22 lisinopril 30 mg tablet 1 tab PO DAILY 04/06/22 04/06/22 polyethylene glycol 3350 17 17 g PO DAILY 04/06/22 04/06/22 gram/dose oral powder Previous Rx's Medication Instructions Recorded aspirin 81 mg tablet,delayed 81 mg PO DAILY #30 tabs 03/16/22 release amoxicillin 500 mg capsule 500 mg PO Q8H 5 days #15 caps 04/09/22 Allergies Allergy/AdvReac Type Severity Reaction Status Date / Time morphine [MORPHINE] Allergy Unknown RASH, vomit Verified 01/15/22 00:48 prednisone Allergy Unknown hives Verified 01/15/22 00:48 Sulfa (Sulfonamide Allergy Unknown UNKNOWN, Verified 01/15/22 00:48 Antibiotics) hives [SULFA (SULFONAMIDE ANTIBIOTICS)] Review of Systems Review of Systems: Yes Unobtainable due to mental condition [facility] Past Medical History Medical History Asthma Bipolar disorder Chronic pain Diabetes History of recent stroke Hypertension IBS (irritable bowel syndrome) Opioid use disorder Peripheral neuropathy Polysubstance abuse Seizure Surgical History History of appendectomy Social History Social History Household Members: Unknown / Unable to assess Household Members Other:: roommate Housing: Unknown / Unable to assess Do you presently have visiting nurse or other home services: No Unable to assess alcohol history related to: Refusing to respond Alcohol intake: unknown Patient Tobacco Use Status: Refuse Tobacco use screen Tobacco use type: Cigarette Cigarette Packs Per Day: 1 Cigarettes Per Day: 20.0 Substance Use Type: Painkillers Advance Directives: Yes Advance Directives on File: Yes Advance Directives Date on File: 09/03/21 service: No Current occupational status: disabled Physical Exam ED Vital Signs: Vital Signs - 24 hr 04/23/22 13:25 04/23/22 15:56 04/23/22 17:38 Temperature 100.6 F H 98.8 F 98.2 F Pulse Rate 101 H 97 100 Respiratory Rate 18 20 24 H Blood Pressure 188/89 H 193/76 H 184/82 H Pulse Oximetry 98 98 97 Oxygen Delivery Method Room Air Room Air Room Air 04/23/22 18:02 Temperature 101.6 F H Pulse Rate Respiratory Rate Blood Pressure Pulse Oximetry Oxygen Delivery Method BMI result Body Mass Index 32.1 Const Other: Appearance: Alert. Encephalopathic, unable to follow commands, nonverbal, disheveled Eyes: Pupils equal, round and reactive to light. ENT: Pharynx normal. Neck: Normal inspection. Neck supple. No lymph nodes noted. No crepitus CVS: Normal heart rate and rhythm. Pulses normal. Normal S1 and S2 Respiratory: No respiratory distress. Breath sounds normal. No Wheezing. No rales Abdomen: Soft and nontender. No rigidity. No distention. Skin: Skin warm and dry. Normal skin color. Normal skin turgor. Extremities: No lower extremity edema. No Lacerations. No Rash Neuro: Oriented X 3. No motor deficit. No sensory deficit. Moving all extremities. No slurred speech. CN 2 through 12 grossly intact Psych: calm, cooperative, normal affect Course Course Course Narrative: -patient is encephalopathic, patient does have a fever, 100.6F -patient has history of UTI encephalopathy, based on patient's previous labs, susceptibility, patient will be treated with levofloxacin -patient is being giving IV fluids based on ideal weight of 60 kg, patient is morbidly obese. -all of patient's labs and imaging are pending Medications Administered Discontinued Medications Generic Name Dose Route Start Last Admin Trade Name Freq PRN Reason Stop Dose Admin Acetaminophen 650 mg 04/23/22 18:03 04/23/22 18:06 Acetaminophen Supp 650 Mg Supp.Rect [place] 04/23/22 18:04 650 mg ONCE ONE Administration Sodium Chloride 2,000 mls @ 999 mls/hr 04/23/22 13:04 04/23/22 16:22 Ns IVCONT 04/23/22 15:04 Infused .Q2H1M ONE Infusion Levofloxacin 500 mg in 100 mls @ 100 mls/hr 04/23/22 13:47 04/23/22 15:59 Levaquin IV 04/23/22 14:46 Infused ONCE ONE Infusion Ceftriaxone Sodium 2 gm/ 50 mls @ 100 mls/hr 04/23/22 15:47 04/23/22 16:46 Sodium Chloride IV 04/23/22 16:16 Infused ONCE ONE Infusion Insulin Human Regular 10 unit 04/23/22 18:09 04/23/22 18:16 Insulin Regular, Human 100 Unit/Ml 3 Ml Vial IVPUSH 04/23/22 18:10 10 unit ONCE ONE Administration Iohexol 100 ml 04/23/22 16:49 04/23/22 16:49 Iohexol 350 Mg/Ml 100 Ml Infus..Btl IV 04/23/22 16:50 70 ml ONCE ONE Administration Labetalol HCl 5 mg 04/23/22 18:10 04/23/22 18:17 Labetalol Hcl 100 Mg/20 Ml Vial IVPUSH 04/23/22 18:11 5 mg ONCE ONE Administration Lorazepam 2 mg 04/23/22 16:58 04/23/22 17:00 Lorazepam 2 Mg/Ml Vial IVPUSH 04/23/22 16:59 2 mg ONCE ONE Administration Medical Decision Making Medical Decision Making [facility] Narrative: -patient still has a fever, chest x-ray negative, urinalysis negative. Patient remains encephalopathic. Head CT pending. Patient will likely need a lumbar puncture. Patient empirically treated with ceftriaxone. -U tox positive for fentanyl -white blood cell count elevated, 18.7, urinalysis negative, chest x-ray negative. At this time, there is no clear source of infection. We were going to attempt doing a lumbar puncture. However, patient has spinal fusion and there is no space to pass the needle for an LP. Patient was empirically treated with antibiotics. -I discussed the patient with Dr. Mccray, patient being admitted Differential Diagnosis Differential Diagnoses: The differential diagnosis associated with the presentation includes (UTI, encephalopathy) Admission/Observation Consideration of admission/observation: Escalation of care including admission/observation considered Consult Healthcare Provider Management of the patient was discussed with: Hospitalist Lab Data MDM Lab Attestation statement: I reviewed the patient's lab results. 04/23/22 14:07 04/23/22 14:06 Labs: Lab Results 04/23/22 04/23/22 04/23/22 Range/Units 13:01 14:06 14:06 WBC (4.8-10.8) X10*3/uL RBC (4.20-5.50) X10*6/uL Hgb (12.0-16.0) g/dl Hct (37.0-47.0) % MCV (80.0-98.0) fL MCH (27.0-33.0) pg MCHC (31.0-35.0) g/dl RDW (11.0-16.0) % Plt Count (160-400) X10*3/uL MPV (9.4-12.3) fL Immature Gran % (Auto) (0.0-0.4) % Neut % (Auto) (45-73) % Lymph % (Auto) (20-40) % [place] % (Auto) (2-11) % Eos % (Auto) (0-4) % Baso % (Auto) (0-2) % Lymph # (Auto) (1.2-4.9) X10*3/uL [place] # (Auto) (0.1-1.2) X10*3/uL Eos # (Auto) (0.0-0.4) X10*3/uL Baso # (Auto) (0.0-0.2) X10*3/uL Abs Immat Gran (auto) (0.00-0.03) X10*3/uL Absolute Neuts (auto) (2.0-8.3) x10*3/uL Absolute Nucleated RBC (0.0-0.012) X10*3/uL Nucleated RBC % (auto) (0.0-0.2) /100WBC PT 12.0 (10.0-13.1) SEC INR 1.0 (0.9-1.1) VBG pH (7.32-7.43) VBG pCO2 mmHg VBG pO2 mmHg VBG HCO3 (22-26) mmol/L VBG O2 Saturation % VBG Base Excess mmol/L Sodium 141 (135-145) mmol/L Potassium 4.3 (3.3-5.1) mmol/L Chloride 100 (96-108) mmol/L Carbon Dioxide 25 (22-29) mmol/L Anion Gap 20 (12-20) BUN 17 H (9-16) mg/dL Creatinine 1.08 (0.5-1.4) mg/dL Estim Creat Clear Calc 62.1 Estimated GFR 52 POC Glucose 342 H (60-115) mg/dL Random Glucose 338 H (60-115) mg/dL Lactic Acid (0.5-2.0) mmol/L Calcium 9.3 (8.4-10.2) mg/dL Magnesium 1.6 (1.6-2.6) mg/dL Total Bilirubin 0.9 (0.0-1.0) mg/dL Direct Bilirubin 0.3 (0.0-0.5) mg/dL AST 14 (5-31) U/L ALT 17 (0-31) U/L Alkaline Phosphatase 123 H (39-117) U/L Ammonia (13-55) umol/L Total Creatine Kinase 24 L (26-140) U/L Troponin I High Sens (<3.5-17.0) ng/L B-Natriuretic Peptide (<100) pg/mL Total Protein 7.4 (6.5-8.0) g/dL Albumin 4.4 (3.5-5.0) g/dL Lipase 24 (8-78) U/L TSH (0.32-4.0) uIU/mL Free T4 (0.71-1.85) ng/dL Urine Color Urine Appearance Urine pH (5.0-9.0) Ur Specific [place] (1.005-1.025) Urine Protein (Neg-Trace) mg/dL Urine Glucose (UA) (Negative) mg/dL Urine Ketones (Negative) mg/dL Urine Blood (Negative) Urine Nitrite (Negative) Ur Leukocyte Esterase (Negative) Urine RBC (0-2) /HPF Urine WBC (0-5) /HPF Ur Squamous Epith Cells (0-2) /HPF Urine Bacteria (None Seen) Hyaline Casts (0-2) /LPF Urine Opiates Screen (Not Detect) Urine Fentanyl Screen (Not Detect) Ur Barbiturates Screen (Not Detect) Ur Phencyclidine Scrn (Not Detect) Ur Amphetamines Screen (Not Detect) U Benzodiazepines Scrn (Not Detect) Urine Cocaine Screen (Not Detect) U Marijuana (THC) Screen (Not Detect) Ethyl Alcohol mg/dL COVID-19 (MARLYS) (Negative) COVID-19 Clin Com Influenza Type A ([place]) (Negative) Influenza Type B ([place]) (Negative) Influenza A & B Note 04/23/22 04/23/22 04/23/22 Range/Units 14:06 14:06 14:06 WBC (4.8-10.8) X10*3/uL RBC (4.20-5.50) X10*6/uL Hgb (12.0-16.0) g/dl Hct (37.0-47.0) % MCV (80.0-98.0) fL MCH (27.0-33.0) pg MCHC (31.0-35.0) g/dl RDW (11.0-16.0) % Plt Count (160-400) X10*3/uL MPV (9.4-12.3) fL Immature Gran % (Auto) (0.0-0.4) % Neut % (Auto) (45-73) % Lymph % (Auto) (20-40) % [place] % (Auto) (2-11) % Eos % (Auto) (0-4) % Baso % (Auto) (0-2) % Lymph # (Auto) (1.2-4.9) X10*3/uL [place] # (Auto) (0.1-1.2) X10*3/uL Eos # (Auto) (0.0-0.4) X10*3/uL Baso # (Auto) (0.0-0.2) X10*3/uL Abs Immat Gran (auto) (0.00-0.03) X10*3/uL Absolute Neuts (auto) (2.0-8.3) x10*3/uL Absolute Nucleated RBC (0.0-0.012) X10*3/uL Nucleated RBC % (auto) (0.0-0.2) /100WBC PT (10.0-13.1) SEC INR (0.9-1.1) VBG pH (7.32-7.43) VBG pCO2 mmHg VBG pO2 mmHg VBG HCO3 (22-26) mmol/L VBG O2 Saturation % VBG Base Excess mmol/L Sodium (135-145) mmol/L Potassium (3.3-5.1) mmol/L Chloride (96-108) mmol/L Carbon Dioxide (22-29) mmol/L Anion Gap (12-20) BUN (9-16) mg/dL Creatinine (0.5-1.4) mg/dL Estim Creat Clear Calc Estimated GFR POC Glucose (60-115) mg/dL Random Glucose (60-115) mg/dL Lactic Acid 1.9 (0.5-2.0) mmol/L Calcium (8.4-10.2) mg/dL Magnesium (1.6-2.6) mg/dL Total Bilirubin (0.0-1.0) mg/dL Direct Bilirubin (0.0-0.5) mg/dL AST (5-31) U/L ALT (0-31) U/L Alkaline Phosphatase (39-117) U/L Ammonia (13-55) umol/L Total Creatine Kinase (26-140) U/L Troponin I High Sens 6.9 D (<3.5-17.0) ng/L B-Natriuretic Peptide (<100) pg/mL Total Protein (6.5-8.0) g/dL Albumin (3.5-5.0) g/dL Lipase (8-78) U/L TSH (0.32-4.0) uIU/mL Free T4 (0.71-1.85) ng/dL Urine Color Urine Appearance Urine pH (5.0-9.0) Ur Specific [place] (1.005-1.025) Urine Protein (Neg-Trace) mg/dL Urine Glucose (UA) (Negative) mg/dL Urine Ketones (Negative) mg/dL Urine Blood (Negative) Urine Nitrite (Negative) Ur Leukocyte Esterase (Negative) Urine RBC (0-2) /HPF Urine WBC (0-5) /HPF Ur Squamous Epith Cells (0-2) /HPF Urine Bacteria (None Seen) Hyaline Casts (0-2) /LPF Urine Opiates Screen (Not Detect) Urine Fentanyl Screen (Not Detect) Ur Barbiturates Screen (Not Detect) Ur Phencyclidine Scrn (Not Detect) Ur Amphetamines Screen (Not Detect) U Benzodiazepines Scrn (Not Detect) Urine Cocaine Screen (Not Detect) U Marijuana (THC) Screen (Not Detect) Ethyl Alcohol mg/dL COVID-19 (MARLYS) Negative (Negative) COVID-19 Clin Com See Note Influenza Type A ([place]) (Negative) Influenza Type B ([place]) (Negative) Influenza A & B Note 04/23/22 04/23/22 04/23/22 Range/Units 14:06 14:06 14:06 WBC (4.8-10.8) X10*3/uL RBC (4.20-5.50) X10*6/uL Hgb (12.0-16.0) g/dl Hct (37.0-47.0) % MCV (80.0-98.0) fL MCH (27.0-33.0) pg MCHC (31.0-35.0) g/dl RDW (11.0-16.0) % Plt Count (160-400) X10*3/uL MPV (9.4-12.3) fL Immature Gran % (Auto) (0.0-0.4) % Neut % (Auto) (45-73) % Lymph % (Auto) (20-40) % [place] % (Auto) (2-11) % Eos % (Auto) (0-4) % Baso % (Auto) (0-2) % Lymph # (Auto) (1.2-4.9) X10*3/uL [place] # (Auto) (0.1-1.2) X10*3/uL Eos # (Auto) (0.0-0.4) X10*3/uL Baso # (Auto) (0.0-0.2) X10*3/uL Abs Immat Gran (auto) (0.00-0.03) X10*3/uL Absolute Neuts (auto) (2.0-8.3) x10*3/uL Absolute Nucleated RBC (0.0-0.012) X10*3/uL Nucleated RBC % (auto) (0.0-0.2) /100WBC PT (10.0-13.1) SEC INR (0.9-1.1) VBG pH (7.32-7.43) VBG pCO2 mmHg VBG pO2 mmHg VBG HCO3 (22-26) mmol/L VBG O2 Saturation % VBG Base Excess mmol/L Sodium (135-145) mmol/L Potassium (3.3-5.1) mmol/L Chloride (96-108) mmol/L Carbon Dioxide (22-29) mmol/L Anion Gap (12-20) BUN (9-16) mg/dL Creatinine (0.5-1.4) mg/dL Estim Creat Clear Calc Estimated GFR POC Glucose (60-115) mg/dL Random Glucose (60-115) mg/dL Lactic Acid (0.5-2.0) mmol/L Calcium (8.4-10.2) mg/dL Magnesium (1.6-2.6) mg/dL Total Bilirubin (0.0-1.0) mg/dL Direct Bilirubin (0.0-0.5) mg/dL AST (5-31) U/L ALT (0-31) U/L Alkaline Phosphatase (39-117) U/L Ammonia 37 (13-55) umol/L Total Creatine Kinase (26-140) U/L Troponin I High Sens (<3.5-17.0) ng/L B-Natriuretic Peptide 89 (<100) pg/mL Total Protein (6.5-8.0) g/dL Albumin (3.5-5.0) g/dL Lipase (8-78) U/L TSH 0.29 L (0.32-4.0) uIU/mL Free T4 1.18 (0.71-1.85) ng/dL Urine Color Urine Appearance Urine pH (5.0-9.0) Ur Specific [place] (1.005-1.025) Urine Protein (Neg-Trace) mg/dL Urine Glucose (UA) (Negative) mg/dL Urine Ketones (Negative) mg/dL Urine Blood (Negative) Urine Nitrite (Negative) Ur Leukocyte Esterase (Negative) Urine RBC (0-2) /HPF Urine WBC (0-5) /HPF Ur Squamous Epith Cells (0-2) /HPF Urine Bacteria (None Seen) Hyaline Casts (0-2) /LPF Urine Opiates Screen (Not Detect) Urine Fentanyl Screen (Not Detect) Ur Barbiturates Screen (Not Detect) Ur Phencyclidine Scrn (Not Detect) Ur Amphetamines Screen (Not Detect) U Benzodiazepines Scrn (Not Detect) Urine Cocaine Screen (Not Detect) U Marijuana (THC) Screen (Not Detect) Ethyl Alcohol < 10 mg/dL COVID-19 (MARLYS) (Negative) COVID-19 Clin Com Influenza Type A ([place]) (Negative) Influenza Type B ([place]) (Negative) Influenza A & B Note 04/23/22 04/23/22 04/23/22 Range/Units 14:06 14:07 14:10 WBC 18.7 H (4.8-10.8) X10*3/uL RBC 5.11 (4.20-5.50) X10*6/uL Hgb 14.3 (12.0-16.0) g/dl Hct 42.5 (37.0-47.0) % MCV 83.2 (80.0-98.0) fL MCH 28.0 (27.0-33.0) pg MCHC 33.6 (31.0-35.0) g/dl RDW 16.0 (11.0-16.0) % Plt Count 387 D (160-400) X10*3/uL MPV 10.8 (9.4-12.3) fL Immature Gran % (Auto) 0.5 H (0.0-0.4) % Neut % (Auto) 83.2 H (45-73) % Lymph % (Auto) 11.9 L (20-40) % [place] % (Auto) 4.1 (2-11) % Eos % (Auto) 0.0 (0-4) % Baso % (Auto) 0.3 (0-2) % Lymph # (Auto) 2.2 (1.2-4.9) X10*3/uL [place] # (Auto) 0.8 (0.1-1.2) X10*3/uL Eos # (Auto) 0.0 (0.0-0.4) X10*3/uL Baso # (Auto) 0.1 (0.0-0.2) X10*3/uL Abs Immat Gran (auto) 0.09 H (0.00-0.03) X10*3/uL Absolute Neuts (auto) 15.6 H (2.0-8.3) x10*3/uL Absolute Nucleated RBC 0.000 (0.0-0.012) X10*3/uL Nucleated RBC % (auto) 0.0 (0.0-0.2) /100WBC PT (10.0-13.1) SEC INR (0.9-1.1) VBG pH (7.32-7.43) VBG pCO2 mmHg VBG pO2 mmHg VBG HCO3 (22-26) mmol/L VBG O2 Saturation % VBG Base Excess mmol/L Sodium (135-145) mmol/L Potassium (3.3-5.1) mmol/L Chloride (96-108) mmol/L Carbon Dioxide (22-29) mmol/L Anion Gap (12-20) BUN (9-16) mg/dL Creatinine (0.5-1.4) mg/dL Estim Creat Clear Calc Estimated GFR POC Glucose (60-115) mg/dL Random Glucose (60-115) mg/dL Lactic Acid (0.5-2.0) mmol/L Calcium (8.4-10.2) mg/dL Magnesium (1.6-2.6) mg/dL Total Bilirubin (0.0-1.0) mg/dL Direct Bilirubin (0.0-0.5) mg/dL AST (5-31) U/L ALT (0-31) U/L Alkaline Phosphatase (39-117) U/L Ammonia (13-55) umol/L Total Creatine Kinase (26-140) U/L Troponin I High Sens (<3.5-17.0) ng/L B-Natriuretic Peptide (<100) pg/mL Total Protein (6.5-8.0) g/dL Albumin (3.5-5.0) g/dL Lipase (8-78) U/L TSH (0.32-4.0) uIU/mL Free T4 (0.71-1.85) ng/dL Urine Color Yellow Urine Appearance Clear Urine pH 6.5 (5.0-9.0) Ur Specific [place] >= 1.030 H (1.005-1.025) Urine Protein 300 (3+) H (Neg-Trace) mg/dL Urine Glucose (UA) >=1000 H (Negative) mg/dL Urine Ketones 80 (Negative) mg/dL Urine Blood Negative (Negative) Urine Nitrite Negative (Negative) Ur Leukocyte Esterase Negative (Negative) Urine RBC 0-2 (0-2) /HPF Urine WBC 0-5 (0-5) /HPF Ur Squamous Epith Cells 0-2 (0-2) /HPF Urine Bacteria None Seen (None Seen) Hyaline Casts 0-2 (0-2) /LPF Urine Opiates Screen (Not Detect) Urine Fentanyl Screen (Not Detect) Ur Barbiturates Screen (Not Detect) Ur Phencyclidine Scrn (Not Detect) Ur Amphetamines Screen (Not Detect) U Benzodiazepines Scrn (Not Detect) Urine Cocaine Screen (Not Detect) U Marijuana (THC) Screen (Not Detect) Ethyl Alcohol mg/dL COVID-19 (MARLYS) (Negative) COVID-19 Clin Com Influenza Type A ([place]) Negative (Negative) Influenza Type B ([place]) Negative (Negative) Influenza A & B Note See Note 04/23/22 04/23/22 Range/Units 14:10 14:12 WBC (4.8-10.8) X10*3/uL RBC (4.20-5.50) X10*6/uL Hgb (12.0-16.0) g/dl Hct (37.0-47.0) % MCV (80.0-98.0) fL MCH (27.0-33.0) pg MCHC (31.0-35.0) g/dl RDW (11.0-16.0) % Plt Count (160-400) X10*3/uL MPV (9.4-12.3) fL Immature Gran % (Auto) (0.0-0.4) % Neut % (Auto) (45-73) % Lymph % (Auto) (20-40) % [place] % (Auto) (2-11) % Eos % (Auto) (0-4) % Baso % (Auto) (0-2) % Lymph # (Auto) (1.2-4.9) X10*3/uL [place] # (Auto) (0.1-1.2) X10*3/uL Eos # (Auto) (0.0-0.4) X10*3/uL Baso # (Auto) (0.0-0.2) X10*3/uL Abs Immat Gran (auto) (0.00-0.03) X10*3/uL Absolute Neuts (auto) (2.0-8.3) x10*3/uL Absolute Nucleated RBC (0.0-0.012) X10*3/uL Nucleated RBC % (auto) (0.0-0.2) /100WBC PT (10.0-13.1) SEC INR (0.9-1.1) VBG pH 7.41 (7.32-7.43) VBG pCO2 48 mmHg VBG pO2 40 mmHg VBG HCO3 31 H (22-26) mmol/L VBG O2 Saturation 53.0 % VBG Base Excess 5.2 mmol/L Sodium (135-145) mmol/L Potassium (3.3-5.1) mmol/L Chloride (96-108) mmol/L Carbon Dioxide (22-29) mmol/L Anion Gap (12-20) BUN (9-16) mg/dL Creatinine (0.5-1.4) mg/dL Estim Creat Clear Calc Estimated GFR POC Glucose (60-115) mg/dL Random Glucose (60-115) mg/dL Lactic Acid (0.5-2.0) mmol/L Calcium (8.4-10.2) mg/dL Magnesium (1.6-2.6) mg/dL Total Bilirubin (0.0-1.0) mg/dL Direct Bilirubin (0.0-0.5) mg/dL AST (5-31) U/L ALT (0-31) U/L Alkaline Phosphatase (39-117) U/L Ammonia (13-55) umol/L Total Creatine Kinase (26-140) U/L Troponin I High Sens (<3.5-17.0) ng/L B-Natriuretic Peptide (<100) pg/mL Total Protein (6.5-8.0) g/dL Albumin (3.5-5.0) g/dL Lipase (8-78) U/L TSH (0.32-4.0) uIU/mL Free T4 (0.71-1.85) ng/dL Urine Color Urine Appearance Urine pH (5.0-9.0) Ur Specific [place] (1.005-1.025) Urine Protein (Neg-Trace) mg/dL Urine Glucose (UA) (Negative) mg/dL Urine Ketones (Negative) mg/dL Urine Blood (Negative) Urine Nitrite (Negative) Ur Leukocyte Esterase (Negative) Urine RBC (0-2) /HPF Urine WBC (0-5) /HPF Ur Squamous Epith Cells (0-2) /HPF Urine Bacteria (None Seen) Hyaline Casts (0-2) /LPF Urine Opiates Screen Not Detected (Not Detect) Urine Fentanyl Screen POSITIVE H (Not Detect) Ur Barbiturates Screen Not Detected (Not Detect) Ur Phencyclidine Scrn Not Detected (Not Detect) Ur Amphetamines Screen Not Detected (Not Detect) U Benzodiazepines Scrn Not Detected (Not Detect) Urine Cocaine Screen Not Detected (Not Detect) U Marijuana (THC) Screen Not Detected (Not Detect) Ethyl Alcohol mg/dL COVID-19 (MARLYS) (Negative) COVID-19 Clin Com Influenza Type A ([place]) (Negative) Influenza Type B ([place]) (Negative) Influenza A & B Note Independent Interpretation I performed an independent interpretation of an: Plain X-Ray (Patient has plates in the lumbar spine) and CT Scan (Head CT: No acute bleed) Radiology Impression Discussion of test interpretation with radiology: I have reviewed the radiologist's reading. Radiologist Impression: FINDINGS: Head CT: There is no intracranial hemorrhage, large acute infarction, or mass lesion. The ventricles are normal in size and configuration without evidence of hydrocephalus. A small focus of chronic infarction is seen within the right occipital lobe. There is no abnormal enhancement. ? The visualized paranasal sinuses and mastoid air cells are clear. Neck CTA: The aortic arch and great vessel origins are patent. There is no aberrant right subclavian artery which demonstrates a retroesophageal course. Both common and internal carotid arteries are patent. Both vertebral arteries are patent. The left vertebral artery arises directly from the aortic arch. Head CTA: No intracranial aneurysm is seen. The intracranial internal carotid arteries appear normal. The anterior cerebral artery, anterior communicating artery, and middle cerebral arteries appear normal. The intradural vertebral arteries and basilar artery appear normal. The posterior cerebral arteries appear normal. Non-vascular findings: There is advanced dental disease. Cervical soft tissues are within normal limits. There is atrophic change within the thoracic musculature. Mild degenerative changes are seen within the spine. CT/CT angio head neck IMPRESSION: CT HEAD: No intracranial hemorrhage or large acute infarction. 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 ? CTA NECK: No hemodynamically significant stenosis in the major arteries of the neck. ? CTA HEAD: No large vessel occlusion or significant stenosis within the intracranial circulation. ? Critical Care Time Critical Care Time Critical Care Time: Yes Total Critical Care Time: 90 Attestation: I have personally provided critical care time. Time includes review of lab data, radiology results, discussion with consultants, and monitoring for potential decompensation. Intervention performed as documented. Discharge Plan Discharge Clinical Impression: Encephalopathy, Fever of unknown origin, Fentanyl use disorder, severe Patient Disposition: Admitted As Inpatient Prescriptions: No Action aspirin 81 mg Tablet,Delayed Release (Dr/Ec) 81 mg PO DAILY Qty: 30 0RF lorazepam 0.5 mg Tablet 0.5 mg PO DAILY metformin 1,000 mg tablet 1,000 mg PO BIDWM multivitamin Tablet 1 tab PO DAILY atorvastatin 20 mg tablet 20 mg PO DAILY Januvia 100 mg tablet 100 tab PO BEDTIME quetiapine 200 mg tablet 1 tab PO BEDTIME hydralazine 25 mg tablet 1 tab PO TID clonidine HCl 0.2 mg tablet 1 tab PO TID PRN (Reason: Anxiety) pregabalin 100 mg capsule 1 cap PO TID prazosin 1 mg capsule 1 mg PO BEDTIME Protocol: Hold for SBP< HOLD for SBP < : 90 clonazepam 0.5 mg tablet 1 tab PO DAILY PRN (Reason: panic attack) haloperidol 1 mg tablet 1 mg PO TID lisinopril 30 mg tablet 1 tab PO DAILY polyethylene glycol 3350 17 gram/dose powder 17 g PO DAILY haloperidol 2 mg tablet 1 tab PO TID amoxicillin 500 mg capsule 500 mg PO Q8H 5 Days Qty: 15 0RF
[2022-04-23 14:15] LABS: Venous Blood Gas Refer to POC result
[2022-04-23 14:16] LABS: MANUAL DIFF FLAG NO
[2022-04-23 14:17] LABS: Basophils Absolute Auto 0.1 X10*3/uL (0.0-0.2); Basophils Percent Auto 0.3 % (0-2); Hematocrit 42.5 % (37.0-47.0); Hemoglobin 14.3 g/dl (12.0-16.0); Imm Gran Abs Auto 0.09 X10*3/uL (0.00-0.03); Imm Gran Pct Auto 0.5 % (0.0-0.4); Lymphocytes Absolute Auto 2.2 X10*3/uL (1.2-4.9); Lymphocytes Percent Auto 11.9 % (20-40); Mean Corpuscular HGB Conc 33.6 g/dl (31.0-35.0); Mean Corpuscular Volume 83.2 fL (80.0-98.0); Mean Platelet Volume 10.8 fL (9.4-12.3); Monocytes Absolute Auto 0.8 X10*3/uL (0.1-1.2); Monocytes Percent Auto 4.1 % (2-11); Neutrophils Absolute Auto 15.6 x10*3/uL (2.0-8.3); Neutrophils Percent Auto 83.2 % (45-73); Platelet Count 387 X10*3/uL (160-400); Red Blood Count 5.11 X10*6/uL (4.20-5.50); White Blood Count 18.7 X10*3/uL (4.8-10.8)
[2022-04-23 14:18] LABS: VBG Base Excess 5.2 mmol/L; VBG HCO3 31 mmol/L (22-26); VBG pCO2 48 mmHg; VBG pH 7.41 (7.32-7.43); VBG pO2 40 mmHg
[2022-04-23 14:19] LABS: Appearance Urine Clear; Color Urine Yellow; Glucose Urine UA >=1000 mg/dL (Negative); Leukocyte Esterase Urine Negative (Negative); Nitrite Urine Negative (Negative); PH 6.5 (5.0-9.0); Specific Gravity - Urine >= 1.030 (1.005-1.025); UMIC TRIGGER UACC YES; Urine Blood Negative (Negative); Urine Ketones 80 mg/dL (Negative); Urine Protein 300 (3+) mg/dL (Neg-Trace)
[2022-04-23 14:23] LABS: Bacteria Urine None Seen (None Seen); Hyaline Casts Urine 0-2 /LPF (0-2); RBC Urine 0-2 /HPF (0-2); Squamous Epithelial Cell Urine 0-2 /HPF (0-2); WBC Urine 0-5 /HPF (0-5)
[2022-04-23] MEDS: 0.9 % Sodium Chloride 2,000 ML 999 ML IVCONT (14:25)
[2022-04-23] MEDS: levoFLOXacin/D5W 500 MG/100 ML PIGGYBACK 100 MG IV (14:25)
[2022-04-23 14:31] LABS: Ammonia 37 umol/L (13-55)
[2022-04-23 14:35] LABS: Lactic Acid 1.9 mmol/L (0.5-2.0)
[2022-04-23 14:37] LABS: COVID-19 Test Negative (Negative); IDNOW Serial# 16C4AD1C; IDNOW Serial# BCCEAD1C; Influenza A Negative (Negative); Influenza B2 Negative (Negative)
[2022-04-23 14:38] LABS: Amphetamine Screen Urine Not Detected (Not Detect); Barbiturates, Urine Not Detected (Not Detect); Benzodiazepines Screen Urine Not Detected (Not Detect); Cannabinoid Screen Urine Not Detected (Not Detect); Cocaine Screen Urine Not Detected (Not Detect); Fentanyl, urine POSITIVE (Not Detect); Opiate Screen Urine Not Detected (Not Detect); Phencyclidine Screen Urine Not Detected (Not Detect)
[2022-04-23 14:40] LABS: B Type Natriuretic Peptide 89 pg/mL (<100)
[2022-04-23 14:45] LABS: Troponin-I High Sensitivity 6.9 ng/L (<3.5-17.0)
[2022-04-23 15:03] LABS: Alanine Aminotransferase 17 U/L (0-31); Albumin Level 4.4 g/dL (3.5-5.0); Alkaline Phosphatase 123 U/L (39-117); Anion Gap 20 (12-20); Aspartate Amino Transferase 14 U/L (5-31); Bilirubin Direct 0.3 mg/dL (0.0-0.5); Bilirubin Total 0.9 mg/dL (0.0-1.0); Blood Urea Nitrogen 17 mg/dL (9-16); Calcium 9.3 mg/dL (8.4-10.2); Carbon Dioxide 25 mmol/L (22-29); Chloride 100 mmol/L (96-108); Creatinine Clr Calc Pharmacy 62.1; Estimated Glomerular Filt Rate 52; Glucose Random 338 mg/dL (60-115); Magnesium 1.6 mg/dL (1.6-2.6); Potassium 4.3 mmol/L (3.3-5.1); Sodium 141 mmol/L (135-145); Total Protein 7.4 g/dL (6.5-8.0)
[2022-04-23 15:22] LABS: Ethanol < 10 mg/dL; Lipase 24 U/L (8-78)
[2022-04-23 15:29] LABS: TSH reflex Free T4 0.29 uIU/mL (0.32-4.0)
--- NOTE | 2022-04-23 16:00 | PC.NURSE ---
Patient remains confused does not answer questions will react to grab out to painful stimuli. IV access obtained continues on ABX and IVF with no ill effect will CTM
[2022-04-23 16:13] LABS: Free T4 (Free Thyroxine) 1.18 ng/dL (0.71-1.85)
--- NOTE | 2022-04-23 16:22 | PC.NURSE ---
notified of continued high BP will CTM
[2022-04-23] MEDS: cefTRIAXone sodium 2 GM in 0.9 % Sodium Chloride 50 ML IV (16:23)
--- NOTE | 2022-04-23 16:43 | PC.NURSE ---
Notified by Dr Wood and electrophysiology technician patient agitated in CT admin 2 mg of ativan IVP will CTM
[2022-04-23] MEDS: iohexoL 350 MG/ML 100 ML INFUS..BTL IV (16:49)
[2022-04-23] MEDS: LORazepam 2 MG/ML VIAL IVPUSH (17:00)
[2022-04-23] MEDS: Acetaminophen Supp 650 MG SUPP.RECT PR (18:06)
[2022-04-23] MEDS: Insulin Regular, Human 100 UNIT/ML 3 ML VIAL 10 UNIT IVPUSH (18:16)
[2022-04-23] MEDS: Labetalol HCL 100 MG/20 ML VIAL IVPUSH (18:17)
[2022-04-23 19:15] LABS: Glucose, Whole Blood 229 mg/dL (60-115)
--- NOTE | 2022-04-23 19:44 | PHA.MEDREC ---
Pharmacy Consult ? Medication Reconciliation Pharmacy has completed the medication reconciliation.
--- NOTE | 2022-04-23 19:50 | PC.NURSE ---
assumed care of patient at 1900 - report received from Claudio FORRESTER. patient sleeping on stretcher, responds to painful stimuli. on ekg monitor, vital signs stable . will CTM
--- NOTE | 2022-04-23 19:59 | PM.IMHP ---
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 On arrival, patient disheveled appearing and appears to have been urinating and defecating on herself for several days. She is quite encephalopathic, unable to follow commands or provide history, responsive only to tactile stimuli on my exam. On arrival, patient febrile to 101.6, tachycardic to 101, vitals otherwise normal. Leukocytosis of 18.7, neutrophils 83.2%. Renal function normal, electrolyte levels normal. Glucose 338. UA without evidence of UTI, but with significant glucose and 3+ protein urine drug screen positive for fentanyl. Negative for COVID-19, influenza. Chest x-ray without any acute findings. Head without evidence of intracranial hemorrhage or large acute of infarction but did show focus of chronic infarction in the right occipital lobe. No significant stenosis in major arteries or large vessel occlusions. Given fever of unknown origin, there is suspicion for bacterial meningitis. Patient to be admitted for acute toxic metabolic encephalopathy with possible bacterial meningitis. Review of Systems Review of Systems: Yes all other systems are reviewed and are negative [facility] Medical History Asthma Bipolar disorder Chronic pain Diabetes History of recent stroke Hypertension IBS (irritable bowel syndrome) Opioid use disorder Peripheral neuropathy Polysubstance abuse Seizure Surgical History History of appendectomy Social History Household Members: Unknown / Unable to assess Household Members Other:: roommate Housing: Unknown / Unable to assess Do you presently have visiting nurse or other home services: No Unable to assess alcohol history related to: Refusing to respond Alcohol intake: unknown Patient Tobacco Use Status: Refuse Tobacco use screen Tobacco use type: Cigarette Cigarette Packs Per Day: 1 Cigarettes Per Day: 20.0 Substance Use Type: Painkillers Advance Directives: Yes Advance Directives on File: Yes Advance Directives Date on File: 09/03/21 service: No Current occupational status: disabled Meds Allergies Allergy/AdvReac Type Severity Reaction Status Date / Time morphine [MORPHINE] Allergy Unknown RASH, vomit Verified 01/15/22 00:48 prednisone Allergy Unknown hives Verified 01/15/22 00:48 Sulfa (Sulfonamide Allergy Unknown UNKNOWN, Verified 01/15/22 00:48 Antibiotics) hives [SULFA (SULFONAMIDE ANTIBIOTICS)] Active Medications: Current Medications Acetaminophen (Acetaminophen 325 Mg Tablet) 650 mg PO Q6H PRN PRN Reason: Pain, Mild (Pain Scale 1-3) Docusate Sodium (Docusate Sodium 100 Mg Capsule) 100 mg PO DAILY PRN PRN Reason: Constipation Enoxaparin Sodium (Enoxaparin Sodium 40 Mg/0.4 Ml Syringe) 40 mg SUBCUT Q24H SARMAD Ceftriaxone Sodium 2 gm/ (Sodium Chloride) 50 mls @ 100 mls/hr IV Q12H SARMAD Ampicillin Sodium 2 gm/ Sodium (Chloride) 100 mls @ 100 mls/hr IV Q4H SARMAD Ondansetron HCl (Ondansetron Hcl 4 Mg/2 Ml Vial) 4 mg IVPUSH Q8H PRN PRN Reason: Nausea and Vomiting Pharmacy Consult (Consult Rx Perform Med Rec) 1 each MISCELLANE ONCE PRN PRN Reason: Consult order Pharmacy Consult (Consult Rx Vancomycin Dosing) 1 each MISCELLANE DAILY PRN PRN Reason: Consult order Sodium Chloride (0.9 % Sodium Chloride Flush 3 Ml Syringe) 3 ml IVFLUSH QSHIFT [facility] Home Medications Medication Instructions Recorded Confirmed Last Taken Type lorazepam 0.5 mg tablet 0.5 mg PO DAILY 07/15/21 04/23/22 03/13/22 History metformin 1,000 mg tablet 1,000 mg PO BIDWM 09/03/21 04/23/22 03/13/22 History multivitamin 1 tab PO DAILY 09/03/21 04/23/22 03/13/22 History atorvastatin 20 mg tablet 20 mg PO DAILY 01/15/22 04/23/22 03/13/22 History sitagliptin phosphate 100 mg 100 tab PO BEDTIME 01/15/22 04/23/22 03/12/22 History tablet (Januvia) clonidine HCl 0.2 mg tablet 1 tab PO TID PRN Anxiety 03/08/22 04/23/22 03/07/22 History hydralazine 25 mg tablet 1 tab PO TID 03/08/22 04/23/22 03/13/22 History prazosin 1 mg capsule 1 mg PO BEDTIME 03/08/22 04/23/22 03/12/22 History pregabalin 100 mg capsule 100 mg PO TID 03/08/22 04/23/22 03/13/22 History quetiapine 200 mg tablet 1 tab PO BEDTIME 03/08/22 04/23/22 03/12/22 History clonazepam 0.5 mg tablet 1 tab PO DAILY PRN panic attack 04/06/22 04/23/22 Unknown History haloperidol 1 mg tablet 1 mg PO TID 04/06/22 04/23/22 Unknown History haloperidol 2 mg tablet 1 tab PO TID 04/06/22 04/23/22 Unknown History lisinopril 30 mg tablet 1 tab PO DAILY 04/06/22 04/23/22 Unknown History polyethylene glycol 3350 17 17 g PO DAILY 04/06/22 04/23/22 Unknown History gram/dose oral powder Physical Exam Vital Signs and Narrative: Vital Signs: Last Vital Signs Temp 101.6 F H 04/23/22 18:02 Pulse 100 04/23/22 17:38 Resp 24 H 04/23/22 17:38 BP 184/82 H 04/23/22 17:38 Pulse Ox 97 04/23/22 17:38 O2 Del Method 04/23/22 17:38 BMI result Body Mass Index 32.1 Constitutional - somnolent, grimacing only with painful stimuli, disheveled-appearing Eyes - PERRLA, EOMI Cardiovascular - S1S2, RRR, No edema Neck: No nuchal rigidity. Grimaces with neck flexion Respiratory - Normal lung expansion, Normal respiratory effort, No respiratory distress, CTA bilaterally Gastrointestinal - NT / ND; +BS; No rebound or guarding Extremities - no calf tenderness bilaterally, no swelling Skin - Warm/Dry, flushed Neurological - somnolent, responds only with grimaces to painful stimuli, PERRLA, GCS 5. Negative Kernig's and Brudzinski's sign Results Labs 04/23/22 14:07 04/23/22 14:06 Labs: Laboratory Results - last 24 hr 04/23/22 04/23/22 04/23/22 13:01 14:06 14:06 MCV MCH MCHC RDW Plt Count MPV Immature Gran % (Auto) Neut % (Auto) Lymph % (Auto) [place] % (Auto) Eos % (Auto) Baso % (Auto) Lymph # (Auto) [place] # (Auto) Eos # (Auto) Baso # (Auto) Abs Immat Gran (auto) Absolute Neuts (auto) Absolute Nucleated RBC Nucleated RBC % (auto) PT 12.0 INR 1.0 VBG pH VBG pCO2 VBG pO2 VBG HCO3 VBG O2 Saturation VBG Base Excess Anion Gap 20 Estim Creat Clear Calc 62.1 Estimated GFR 52 POC Glucose 342 H Random Glucose 338 H Lactic Acid Calcium 9.3 Magnesium 1.6 Total Bilirubin 0.9 Direct Bilirubin 0.3 AST 14 ALT 17 Alkaline Phosphatase 123 H Ammonia Total Creatine Kinase 24 L Troponin I High Sens B-Natriuretic Peptide Total Protein 7.4 Albumin 4.4 Lipase 24 TSH Free T4 Urine Color Urine Appearance Urine pH Ur Specific [place] Urine Protein Urine Glucose (UA) Urine Ketones Urine Blood Urine Nitrite Ur Leukocyte Esterase Urine RBC Urine WBC Ur Squamous Epith Cells Urine Bacteria Hyaline Casts Urine Opiates Screen Urine Fentanyl Screen Ur Barbiturates Screen Ur Phencyclidine Scrn Ur Amphetamines Screen U Benzodiazepines Scrn Urine Cocaine Screen U Marijuana (THC) Screen Ethyl Alcohol COVID-19 (MARLYS) COVID-19 Clin Com Influenza Type A ([place]) Influenza Type B ([place]) Influenza A & B Note 04/23/22 04/23/22 04/23/22 14:06 14:06 14:06 MCV MCH MCHC RDW Plt Count MPV Immature Gran % (Auto) Neut % (Auto) Lymph % (Auto) [place] % (Auto) Eos % (Auto) Baso % (Auto) Lymph # (Auto) [place] # (Auto) Eos # (Auto) Baso # (Auto) Abs Immat Gran (auto) Absolute Neuts (auto) Absolute Nucleated RBC Nucleated RBC % (auto) PT INR VBG pH VBG pCO2 VBG pO2 VBG HCO3 VBG O2 Saturation VBG Base Excess Anion Gap Estim Creat Clear Calc Estimated GFR POC Glucose Random Glucose Lactic Acid 1.9 Calcium Magnesium Total Bilirubin Direct Bilirubin AST ALT Alkaline Phosphatase Ammonia Total Creatine Kinase Troponin I High Sens 6.9 D B-Natriuretic Peptide Total Protein Albumin Lipase TSH Free T4 Urine Color Urine Appearance Urine pH Ur Specific [place] Urine Protein Urine Glucose (UA) Urine Ketones Urine Blood Urine Nitrite Ur Leukocyte Esterase Urine RBC Urine WBC Ur Squamous Epith Cells Urine Bacteria Hyaline Casts Urine Opiates Screen Urine Fentanyl Screen Ur Barbiturates Screen Ur Phencyclidine Scrn Ur Amphetamines Screen U Benzodiazepines Scrn Urine Cocaine Screen U Marijuana (THC) Screen Ethyl Alcohol COVID-19 (MARLYS) Negative COVID-19 Clin Com See Note Influenza Type A ([place]) Influenza Type B ([place]) Influenza A & B Note 04/23/22 04/23/22 04/23/22 14:06 14:06 14:06 MCV MCH MCHC RDW Plt Count MPV Immature Gran % (Auto) Neut % (Auto) Lymph % (Auto) [place] % (Auto) Eos % (Auto) Baso % (Auto) Lymph # (Auto) [place] # (Auto) Eos # (Auto) Baso # (Auto) Abs Immat Gran (auto) Absolute Neuts (auto) Absolute Nucleated RBC Nucleated RBC % (auto) PT INR VBG pH VBG pCO2 VBG pO2 VBG HCO3 VBG O2 Saturation VBG Base Excess Anion Gap Estim Creat Clear Calc Estimated GFR POC Glucose Random Glucose Lactic Acid Calcium Magnesium Total Bilirubin Direct Bilirubin AST ALT Alkaline Phosphatase Ammonia 37 Total Creatine Kinase Troponin I High Sens B-Natriuretic Peptide 89 Total Protein Albumin Lipase TSH 0.29 L Free T4 1.18 Urine Color Urine Appearance Urine pH Ur Specific [place] Urine Protein Urine Glucose (UA) Urine Ketones Urine Blood Urine Nitrite Ur Leukocyte Esterase Urine RBC Urine WBC Ur Squamous Epith Cells Urine Bacteria Hyaline Casts Urine Opiates Screen Urine Fentanyl Screen Ur Barbiturates Screen Ur Phencyclidine Scrn Ur Amphetamines Screen U Benzodiazepines Scrn Urine Cocaine Screen U Marijuana (THC) Screen Ethyl Alcohol < 10 COVID-19 (MARLYS) COVID-19 Clin Com Influenza Type A ([place]) Influenza Type B ([place]) Influenza A & B Note 04/23/22 04/23/22 04/23/22 14:06 14:07 14:10 MCV 83.2 MCH 28.0 MCHC 33.6 RDW 16.0 Plt Count 387 D MPV 10.8 Immature Gran % (Auto) 0.5 H Neut % (Auto) 83.2 H Lymph % (Auto) 11.9 L [place] % (Auto) 4.1 Eos % (Auto) 0.0 Baso % (Auto) 0.3 Lymph # (Auto) 2.2 [place] # (Auto) 0.8 Eos # (Auto) 0.0 Baso # (Auto) 0.1 Abs Immat Gran (auto) 0.09 H Absolute Neuts (auto) 15.6 H Absolute Nucleated RBC 0.000 Nucleated RBC % (auto) 0.0 PT INR VBG pH VBG pCO2 VBG pO2 VBG HCO3 VBG O2 Saturation VBG Base Excess Anion Gap Estim Creat Clear Calc Estimated GFR POC Glucose Random Glucose Lactic Acid Calcium Magnesium Total Bilirubin Direct Bilirubin AST ALT Alkaline Phosphatase Ammonia Total Creatine Kinase Troponin I High Sens B-Natriuretic Peptide Total Protein Albumin Lipase TSH Free T4 Urine Color Yellow Urine Appearance Clear Urine pH 6.5 Ur Specific [place] >= 1.030 H Urine Protein 300 (3+) H Urine Glucose (UA) >=1000 H Urine Ketones 80 Urine Blood Negative Urine Nitrite Negative Ur Leukocyte Esterase Negative Urine RBC 0-2 Urine WBC 0-5 Ur Squamous Epith Cells 0-2 Urine Bacteria None Seen Hyaline Casts 0-2 Urine Opiates Screen Urine Fentanyl Screen Ur Barbiturates Screen Ur Phencyclidine Scrn Ur Amphetamines Screen U Benzodiazepines Scrn Urine Cocaine Screen U Marijuana (THC) Screen Ethyl Alcohol COVID-19 (MARLYS) COVID-19 Clin Com Influenza Type A ([place]) Negative Influenza Type B ([place]) Negative Influenza A & B Note See Note 04/23/22 04/23/22 04/23/22 14:10 14:12 19:06 MCV MCH MCHC RDW Plt Count MPV Immature Gran % (Auto) Neut % (Auto) Lymph % (Auto) [place] % (Auto) Eos % (Auto) Baso % (Auto) Lymph # (Auto) [place] # (Auto) Eos # (Auto) Baso # (Auto) Abs Immat Gran (auto) Absolute Neuts (auto) Absolute Nucleated RBC Nucleated RBC % (auto) PT INR VBG pH 7.41 VBG pCO2 48 VBG pO2 40 VBG HCO3 31 H VBG O2 Saturation 53.0 VBG Base Excess 5.2 Anion Gap Estim Creat Clear Calc Estimated GFR POC Glucose 229 H Random Glucose Lactic Acid Calcium Magnesium Total Bilirubin Direct Bilirubin AST ALT Alkaline Phosphatase Ammonia Total Creatine Kinase Troponin I High Sens B-Natriuretic Peptide Total Protein Albumin Lipase TSH Free T4 Urine Color Urine Appearance Urine pH Ur Specific [place] Urine Protein Urine Glucose (UA) Urine Ketones Urine Blood Urine Nitrite Ur Leukocyte Esterase Urine RBC Urine WBC Ur Squamous Epith Cells Urine Bacteria Hyaline Casts Urine Opiates Screen Not Detected Urine Fentanyl Screen POSITIVE H Ur Barbiturates Screen Not Detected Ur Phencyclidine Scrn Not Detected Ur Amphetamines Screen Not Detected U Benzodiazepines Scrn Not Detected Urine Cocaine Screen Not Detected U Marijuana (THC) Screen Not Detected Ethyl Alcohol COVID-19 (MARLYS) COVID-19 Clin Com Influenza Type A ([place]) Influenza Type B ([place]) Influenza A & B Note Imaging Radiologist's Impressions: Impressions Chest X-Ray 04/23/22 13:45 IMPRESSION: No acute cardiopulmonary findings. Head/Neck CTA 04/23/22 16:59 IMPRESSION: CT HEAD: No intracranial hemorrhage or large acute infarction. 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 CTA NECK: No hemodynamically significant stenosis in the major arteries of the neck. CTA HEAD: No large vessel occlusion or significant stenosis within the intracranial circulation. Assessment and Plan (1) Encephalopathy: Status: Acute (2) Fever of unknown origin: Status: Acute (3) Fentanyl use disorder, severe: Status: Acute Plan 57-year-old female with past medical history of asthma, bipolar disorder, diabetes, hypertension, IBS, peripheral neuropathy, polysubstance abuse, seizure disorder, who was discharged recently on 04/09 for UTI encephalopathy admitted for acute toxic metabolic encephalopathy with suspected bacterial meningitis. # acute toxic metabolic encephalopathy - possibly multifactorial in the setting of polysubstance abuse (positive for fentanyl) with concern for bacterial meningitis - UA negative. Head CT, head/neck CTA negative for acute abnormality. CXR negative - Treat suspected bacterial meningitis as below # Suspected bacterial meningitis with sepsis - Fever 101.6, WBC 18.7, HR 100 - Pain with passive neck flexion. Negative Kernig in Brudzinski's signs - unable to perform bedside LP due to spinal fusion. IR LP ordered to be performed tomorrow - IV vancomycin, ampicillin, and ceftriaxone ordered empirically - dexamethasone 10 mg q.6h x4 days ordered - appreciate neurology input # hypertension- uncontrolled -?compliance with antihypertensive agents -given IV labetalol in the ED -continue home medications -monitor BP closely # history of recent stroke - continue aspirin and statin # [id number] type 2 diabetes with hyperglycemia - low-dose sliding scale insulin - diabetic diet - POC glucose - hold p.o. medications # bipolar disorder -continue home meds #fentanyl abuse -addiction medicine consult once more awake DVT prophylaxis:? Lovenox Full code Diet: NPO for now given encephalopathy, advanced as tolerated Given patient's acute metabolic encephalopathy and suspicion for bacterial meningitis, patient will require minimum tumor midnight inpatient hospital stay for management with IV antibiotics, steroids, and expert consultation Time Spent With Patient Time: Total time managing care of this patient today ____ minutes. Quality Stroke Does the patient have a stroke diagnosis?: No VTE Prior VTE?: No VTE Risk Level:: Medical - moderate - high VTE Device Contraindication: Treatment Not Indicated VTE Drug Contraindication: N/A - Med Ordered
[2022-04-23] MEDS: dexAMETHasone sod phosphate 10 MG/ML VIAL IVPUSH (20:17)
[2022-04-23] MEDS: Enoxaparin Sodium 40 MG/0.4 ML SYRINGE SUBCUT (20:17)
--- NOTE | 2022-04-23 20:20 | PHA.PROG ---
Admission Date/Time: April 23, 2022 19:40 Indication: HIGHWAY TECHNICIAN infection Weight in k.7 kg Adjusted body weight in Kg: Dime Box body weight in Kg: Obesity Dosing Indication % IBW: Serum Creatinine - Last 168 Hours 04/23/22 14:06 Creatinine 1.08 Estimated CrCl and GFR - Last 168 Hours 04/23/22 14:06 Estim Creat Clear Calc 62.1 Estimated GFR 52 Vancomycin Loading Dose: 2000mg x 1 Current Vancomycin Dosing Regimen: 500mg Q12H Vancomycin Monitoring using AUC goal of 400 - 600 range with trough as surrogate marker: 421mg/L Date and Time for next Vancomycin Level to be drawn: 04/25/22 @0700 Pharmacist Comments on Vancomycin Plan: using obesity model, will continue to monitor renal function Vancomycin dosing will take advantage of [employer] as a clinical decision support tool that uses Bayesian modeling to calculate individual patient's pharmacokinetic parameters and forecast the patient's drug concentration time course with the target goal AUC 24 range of 400 - 600 mg/L/hr.
[2022-04-23] MEDS: Ampicillin Sodium 2 GM in 0.9 % Sodium Chloride 100 ML IV (21:40)
--- NOTE | 2022-04-23 22:29 | PC.NURSE ---
patient continues to be very lethargic, responding to painful stimuli and occasionally responds to her name, but not answering questions. continues to sleep. vital signs stable on playground monitor. will hold off on po meds at this time since patient is very lethargic.
--- NOTE | 2022-04-23 23:05 | PC.NURSE ---
Addendum entered by Lorri Baez 04/24/22 01:57: via [employer] asked Dr Talbert for PO meds to be changed to IV meds as pt's BPs have been high 170s-180s/70s-80s; per provider hold PO meds Original Note: per nurse to nurse report when taking on this assignment, pt lethargic,only responds to tactile stim, some concerns over whether or not she would be able to take PO meds is also NPO, PO meds charted against and not given
--- NOTE | 2022-04-23 23:36 | PC.NURSE ---
assumed care of this patient at this time pt unable to specify where pain is but is able to respond with 'yes' when asked about pain pt is not oriented and responding to some verbal stimuli will CTM, no apparent distress
[2022-04-24] VITALS (9 sets, daily range): BP systolic 130–212; BP diastolic 60–98; PULSE 74–89; RESP 15–26; TEMP 36.8–37.4; O2SAT 93–99
--- NOTE | 2022-04-24 00:01 | MHC.EDTECH ---
pt cleaned and linens changed, purewick in place.
[2022-04-24] MEDS: Ampicillin Sodium 2 GM in 0.9 % Sodium Chloride 100 ML IV ×4 (00:33→15:11)
[2022-04-24] MEDS: 0.9 % Sodium Chloride Flush 3 ML SYRINGE IVFLUSH ×4 (00:34→19:47)
[2022-04-24] MEDS: Labetalol HCL 100 MG/20 ML VIAL 10 MG IVPUSH (02:13)
[2022-04-24] MEDS: dexAMETHasone sod phosphate 10 MG/ML VIAL IVPUSH ×2 (02:14→07:39)
[2022-04-24] MEDS: cefTRIAXone sodium 2 GM in 0.9 % Sodium Chloride 50 ML IV ×2 (03:51→18:46)
--- NOTE | 2022-04-24 04:57 | PC.NURSE ---
Addendum entered by Lorri Baez 04/24/22 05:00: gram pos cocci and cluster Original Note: Recvd call from lab, Jt. Critical result: 2nd set blood cx +cocci and cluster Dr Talbert notified via [employer]
[2022-04-24 07:30] LABS: MANUAL DIFF FLAG NO
[2022-04-24 07:35] LABS: Basophils Percent Auto 0.1 % (0-2); Hematocrit 39.8 % (37.0-47.0); Imm Gran Abs Auto 0.05 X10*3/uL (0.00-0.03); Imm Gran Pct Auto 0.3 % (0.0-0.4); Lymphocytes Absolute Auto 1.8 X10*3/uL (1.2-4.9); Lymphocytes Percent Auto 11.7 % (20-40); Mean Corpuscular HGB Conc 32.7 g/dl (31.0-35.0); Mean Corpuscular Hemoglobin 27.3 pg (27.0-33.0); Mean Corpuscular Volume 83.6 fL (80.0-98.0); Mean Platelet Volume 10.6 fL (9.4-12.3); Monocytes Absolute Auto 0.2 X10*3/uL (0.1-1.2); Monocytes Percent Auto 1.6 % (2-11); Neutrophils Percent Auto 86.3 % (45-73); Platelet Count 343 X10*3/uL (160-400); Red Blood Count 4.76 X10*6/uL (4.20-5.50); White Blood Count 15.1 X10*3/uL (4.8-10.8)
--- NOTE | 2022-04-24 07:35 | PC.NURSE ---
pt is alert no sob/danielle noted lungs - cta. pt appears non-verbal at this time but groans/grunts, eyes are opened and moved ext slowly.. pt was able let her need know that she does not want a blanket or sheet to cover with. heart sound - regular. abd soft and non-tender, bs + x 4 quads. no edema noted. pt is made aware of plan of care.
[2022-04-24 07:55] LABS: Blood Urea Nitrogen 24 mg/dL (9-16); Calcium 8.6 mg/dL (8.4-10.2); Creatinine Clr Calc Pharmacy 57.8; Estimated Glomerular Filt Rate 48
[2022-04-24 07:59] LABS: Glucose Random 419 mg/dL (60-115)
[2022-04-24 08:02] LABS: Anion Gap 24 (12-20); Carbon Dioxide 14 mmol/L (22-29); Chloride 106 mmol/L (96-108); Potassium 4.2 mmol/L (3.3-5.1); Sodium 140 mmol/L (135-145)
--- NOTE | 2022-04-24 08:23 | MHC.EDTECH ---
patient daily care performed, oral care and bed bath done. patient has new purewick in place, resting comfortably and repositioned to right side on dry linens. call michaud within reach
[2022-04-24 08:31] LABS: Glucose, Whole Blood 386 mg/dL (60-115)
--- NOTE | 2022-04-24 08:39 | MHC.CM.PN ---
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
[2022-04-24] MEDS: vancomycin HCL 500 MG in 0.9 % Sodium Chloride 100 ML 110 MG IV ×2 (09:23→21:28)
[2022-04-24] MEDS: Insulin Regular, Human 100 UNIT/ML 3 ML VIAL 9 UNIT IVPUSH (09:49)
--- NOTE | 2022-04-24 10:05 | PM.NEUROCN ---
History of Present Illness Data of Consult Service Date: 04/24/22 Primary Care Provider: Bri Milligan CNP HPI Reason for consult: Altered mental status 57-year-old female with past medical history of asthma, bipolar disorder, diabetes, hypertension, IBS, peripheral neuropathy, polysubstance abuse, seizure disorder, who was admitted to [facility] on 01/30 with Fentanyl OD an dmarijuana on board in an obtunded state, and also on 03/13/22 for smal right occipital infarct with negtaive CTA of head and neck, discharged recently on 04/09 for UTI encephalopathy. She again presented to the ED awake but unresponsive and unable to follow commands with last known well time 2-3 days ago.?She is disheveled appearing and appears to have been urinating and defecating on herself for several days.? She is quite encephalopathic, unable to follow commands or provide history, responsive only to tactile stimuli on my exam.? On arrival, patient febrile to 101.6, tachycardic to 101, vitals otherwise normal.? Leukocytosis of 18.7, neutrophils 83.2%.? Renal function normal, electrolyte levels normal.? Glucose 338.? UA without evidence of UTI, but with significant glucose and 3+ protein urine drug screen positive for fentanyl.? Negative for COVID-19, influenza.? Chest x-ray without any acute findings.? Head without evidence of intracranial hemorrhage or large acute of infarction but did show focus of chronic infarction in the right occipital lobe.?CTA negative.? Review of Systems Review of Systems: Yes all other systems are reviewed and are negative and Unobtainable due to mental condition PMFSH Past Medical History Medical History Asthma Bipolar disorder Chronic pain Diabetes History of recent stroke Hypertension IBS (irritable bowel syndrome) Opioid use disorder Peripheral neuropathy Polysubstance abuse Seizure Surgical History Surgical History History of appendectomy Social History Social History Household Members: Unknown / Unable to assess Household Members Other:: roommate Housing: Unknown / Unable to assess Do you presently have visiting nurse or other home services: No Unable to assess alcohol history related to: Refusing to respond Alcohol intake: unknown Patient Tobacco Use Status: Refuse Tobacco use screen Tobacco use type: Cigarette Cigarette Packs Per Day: 1 Cigarettes Per Day: 20.0 Substance Use Type: Painkillers Advance Directives: Yes Advance Directives on File: Yes Advance Directives Date on File: 09/03/21 service: No Current occupational status: disabled Meds Allergies Allergy/AdvReac Type Severity Reaction Status Date / Time morphine [MORPHINE] Allergy Unknown RASH, vomit Verified 01/15/22 00:48 prednisone Allergy Unknown hives Verified 01/15/22 00:48 Sulfa (Sulfonamide Allergy Unknown UNKNOWN, Verified 01/15/22 00:48 Antibiotics) hives [SULFA (SULFONAMIDE ANTIBIOTICS)] Active Medications: Current Medications Acetaminophen (Acetaminophen 325 Mg Tablet) 650 mg PO Q6H PRN PRN Reason: Pain, Mild (Pain Scale 1-3) Docusate Sodium (Docusate Sodium 100 Mg Capsule) 100 mg PO DAILY PRN PRN Reason: Constipation Enoxaparin Sodium (Enoxaparin Sodium 40 Mg/0.4 Ml Syringe) 40 mg SUBCUT Q24H [facility] Last Admin: 04/23/22 20:17 Dose: 40 mg Ceftriaxone Sodium 2 gm/ (Sodium Chloride) 50 mls @ 100 mls/hr IV Q12H [facility] Last Infusion: 04/24/22 04:37 Dose: Infused Ampicillin Sodium 2 gm/ Sodium (Chloride) 100 mls @ 100 mls/hr IV Q4H [facility] Last Infusion: 04/24/22 08:40 Dose: Infused Vancomycin HCl 500 mg/ Sodium (Chloride) 110 mls @ 110 mls/hr IV Q12H [facility] Last Admin: 04/24/22 09:23 Dose: 110 mls/hr Sodium Chloride (Ns) 1,000 mls @ 100 mls/hr IVCONT .Q10H [facility] Lisinopril (Lisinopril 10 Mg Tablet) 30 mg PO DAILY [facility]; Protocol Last Admin: 04/24/22 09:24 Dose: Not Given Multivitamins/Vitamin C (Multivitamin Tablet) 1 tab PO DAILY [facility] Last Admin: 04/24/22 09:24 Dose: Not Given Ondansetron HCl (Ondansetron Hcl 4 Mg/2 Ml Vial) 4 mg IVPUSH Q8H PRN PRN Reason: Nausea and Vomiting Pharmacy Consult (Consult Rx Perform Med Rec) 1 each MISCELLANE ONCE PRN PRN Reason: Consult order Pharmacy Consult (Consult Rx Vancomycin Dosing) 1 each MISCELLANE DAILY PRN PRN Reason: Consult order Sodium Chloride (0.9 % Sodium Chloride Flush 3 Ml Syringe) [facility] Admin: 04/24/22 07:40 Dose: 3 ml Home Medications Medication Instructions Recorded Confirmed Last Taken Type lorazepam 0.5 mg tablet 0.5 mg PO DAILY 07/15/21 04/23/22 03/13/22 History metformin 1,000 mg tablet 1,000 mg PO BIDWM 09/03/21 04/23/22 03/13/22 History multivitamin 1 tab PO DAILY 09/03/21 04/23/22 03/13/22 History atorvastatin 20 mg tablet 20 mg PO DAILY 01/15/22 04/23/22 03/13/22 History sitagliptin phosphate 100 mg 100 tab PO BEDTIME 01/15/22 04/23/22 03/12/22 History tablet (Januvia) clonidine HCl 0.2 mg tablet 1 tab PO TID PRN Anxiety 03/08/22 04/23/22 03/07/22 History hydralazine 25 mg tablet 1 tab PO TID 03/08/22 04/23/22 03/13/22 History prazosin 1 mg capsule 1 mg PO BEDTIME 03/08/22 04/23/22 03/12/22 History pregabalin 100 mg capsule 100 mg PO TID 03/08/22 04/23/22 03/13/22 History quetiapine 200 mg tablet 1 tab PO BEDTIME 03/08/22 04/23/22 03/12/22 History clonazepam 0.5 mg tablet 1 tab PO DAILY PRN panic attack 04/06/22 04/23/22 Unknown History haloperidol 1 mg tablet 1 mg PO TID 04/06/22 04/23/22 Unknown History haloperidol 2 mg tablet 1 tab PO TID 04/06/22 04/23/22 Unknown History lisinopril 30 mg tablet 1 tab PO DAILY 04/06/22 04/23/22 Unknown History polyethylene glycol 3350 17 17 g PO DAILY 04/06/22 04/23/22 Unknown History gram/dose oral powder Physical Exam Vital Signs: Vital Signs: Last Vital Signs Temp 98.2 F 04/24/22 08:22 Pulse 84 04/24/22 07:27 Resp 26 H 04/24/22 07:27 BP 174/75 H 04/24/22 07:27 Pulse Ox 98 04/24/22 07:27 O2 Del Method 04/24/22 07:27 BMI result Body Mass Index 32.1 Const: Other: Appearance: Alert. Encephalopathic, unable to follow commands, nonverbal, disheveled Eyes: Pupils equal, round and reactive to light. ENT: Pharynx normal. Neck: Normal inspection. Neck supple. No lymph nodes noted. No crepitus CVS: Normal heart rate and rhythm. Pulses normal. Normal S1 and S2 Respiratory: No respiratory distress. Breath sounds normal. No Wheezing. No rales Abdomen: Soft and nontender. No rigidity. No distention. Skin: Skin warm and dry. Normal skin color. Normal skin turgor. Extremities: No lower extremity edema. No Lacerations. No Rash Neuro: Oriented X 3. No motor deficit. No sensory deficit. Moving all extremities. No slurred speech. CN 2 through 12 grossly intact Psych: calm, cooperative, normal affect Neuro: Other: Obtunded with non focal exam to painful stim. Neck supple. Results Labs 04/24/22 07:21 04/24/22 07:21 Labs: Short CBC 04/23/22 04/24/22 Range/Units 14:07 07:21 WBC 18.7 H 15.1 H (4.8-10.8) X10*3/uL Hgb 14.3 13.0 (12.0-16.0) g/dl Hct 42.5 39.8 (37.0-47.0) % Plt Count 387 D 343 (160-400) X10*3/uL BMP 04/23/22 04/24/22 14:06 07:21 Sodium 141 140 Potassium 4.3 4.2 Chloride 100 106 Carbon Dioxide 25 14 L BUN 17 H 24 H Creatinine 1.08 1.16 Calcium 9.3 8.6 D Cardiac Enzymes 04/23/22 Range/Units 14:06 Total Creatine Kinase 24 L (26-140) U/L Liver Function 04/23/22 Range/Units 14:06 Total Bilirubin 0.9 (0.0-1.0) mg/dL Direct Bilirubin 0.3 (0.0-0.5) mg/dL AST 14 (5-31) U/L ALT 17 (0-31) U/L Alkaline Phosphatase 123 H (39-117) U/L Albumin 4.4 (3.5-5.0) g/dL Urine 04/23/22 Range/Units 14:10 Urine Color Yellow Urine Appearance Clear Urine pH 6.5 (5.0-9.0) Ur Specific [place] >= 1.030 H (1.005-1.025) Urine Protein 300 (3+) H (Neg-Trace) mg/dL Urine Glucose (UA) >=1000 H (Negative) mg/dL Microbiology Microbiology Results: Microbiology 04/23/22 14:06 Blood - Venous Blood Culture - Preliminary Prelim: GPC Gram Stain only Assessment and Plan (1) Encephalopathy: Status: Acute Probably narcotic induced as in her Jan 2022 admission. R/O stroke - unlikely. R/o meningitis in view of fever. Recom. MRI brain and lumbar puncture for bacterial and viral meningitis screen (2) Fever of unknown origin: Status: Acute (3) Fentanyl use disorder, severe: Status: Acute Plan 57-year-old female with past medical history of asthma, bipolar disorder, diabetes, hypertension, IBS, peripheral neuropathy, polysubstance abuse, seizure disorder, who was discharged recently on 04/09 for UTI encephalopathy admitted for acute toxic metabolic encephalopathy with suspected bacterial meningitis. # acute toxic metabolic encephalopathy - possibly multifactorial in the setting of polysubstance abuse (positive for fentanyl) with concern for bacterial meningitis - UA negative. Head CT, head/neck CTA negative for acute abnormality. CXR negative - Treat suspected bacterial meningitis as below # Suspected bacterial meningitis with sepsis - Fever 101.6, WBC 18.7, HR 100 - Pain with passive neck flexion. Negative Kernig in Brudzinski's signs - unable to perform bedside LP due to spinal fusion. IR LP ordered to be performed tomorrow - IV vancomycin, ampicillin, and ceftriaxone ordered empirically - dexamethasone 10 mg q.6h x4 days ordered - appreciate neurology input # hypertension- uncontrolled -?compliance with antihypertensive agents -given IV labetalol in the ED -continue home medications -monitor BP closely # history of recent stroke - continue aspirin and statin # [id number] type 2 diabetes with hyperglycemia - low-dose sliding scale insulin - diabetic diet - POC glucose - hold p.o. medications # bipolar disorder -continue home meds #fentanyl abuse -addiction medicine consult once more awake DVT prophylaxis:? Lovenox Full code Diet: NPO for now given encephalopathy, advanced as tolerated Given patient's acute metabolic encephalopathy and suspicion for bacterial meningitis, patient will require minimum tumor midnight inpatient hospital stay for management with IV antibiotics, steroids, and expert consultation Time Spent With Patient Time: Total time managing care of this patient today ____ minutes. Procedures Date of Service Date of Service: 04/24/22
[2022-04-24] MEDS: 0.9 % Sodium Chloride 1,000 ML 100 ML IVCONT (10:14)
[2022-04-24 11:04] LABS: Glucose, Whole Blood 325 mg/dL (60-115)
[2022-04-24] MEDS: Insulin Regular/NS 100 UNIT/100 ML PLAST..BAG 9 UNIT IVCONT (11:54)
[2022-04-24 13:05] LABS: Glucose, Whole Blood 359 mg/dL (60-115)
--- NOTE | 2022-04-24 13:13 | P.PNIM_ITS ---
Subjective Subjective Date of Service: 04/24/22 Interval History: ams Physical Exam Vital Signs: Vital Signs: Last Vital Signs Temp 98.2 F 04/24/22 08:22 Pulse 80 04/24/22 09:25 Resp 15 04/24/22 09:25 BP 130/60 04/24/22 09:25 Pulse Ox 98 04/24/22 09:25 O2 Del Method 04/24/22 09:25 BMI result Body Mass Index 32.1 Const: Other: Appearance: Alert. Encephalopathic, unable to follow commands, nonverbal, disheveled Eyes: Pupils equal, round and reactive to light. ENT: Pharynx normal. Neck: Normal inspection. Neck supple. No lymph nodes noted. No crepitus CVS: Normal heart rate and rhythm. Pulses normal. Normal S1 and S2 Respiratory: No respiratory distress. Breath sounds normal. No Wheezing. No rales Abdomen: Soft and nontender. No rigidity. No distention. Skin: Skin warm and dry. Normal skin color. Normal skin turgor. Extremities: No lower extremity edema. No Lacerations. No Rash Neuro: Oriented X 3. No motor deficit. No sensory deficit. Moving all extremities. No slurred speech. CN 2 through 12 grossly intact Psych: calm, cooperative, normal affect Neuro: Other: Obtunded with non focal exam to painful stim. Neck supple. Objective Data Active Medications Acetaminophen (Acetaminophen 325 Mg Tablet) 650 mg PO Q6H PRN PRN Reason: Pain, Mild (Pain Scale 1-3) Dextrose (Dextrose 50 % 25 Gm/50 Ml Syringe) 25 gm IVPUSH Q30M PRN PRN Reason: Nursing Actions in Insulin Infusion Protocol Docusate Sodium (Docusate Sodium 100 Mg Capsule) 100 mg PO DAILY PRN PRN Reason: Constipation Enoxaparin Sodium (Enoxaparin Sodium 40 Mg/0.4 Ml Syringe) 40 mg SUBCUT Q24H [facility] Last Admin: 04/23/22 20:17 Dose: 40 mg Documented By: ROCAEL Ceftriaxone Sodium 2 gm/ (Sodium Chloride) 50 mls @ 100 mls/hr IV Q12H [facility] Last Infusion: 04/24/22 04:37 Dose: 0 mls/hr Documented By: WANDA Ampicillin Sodium 2 gm/ Sodium (Chloride) 100 mls @ 100 mls/hr IV Q4H [facility] Last Infusion: 04/24/22 08:40 Dose: 0 mls/hr Documented By: LANIE Vancomycin HCl 500 mg/ Sodium (Chloride) 110 mls @ 110 mls/hr IV Q12H [facility] Last Infusion: 04/24/22 10:25 Dose: 0 mls/hr Documented By: LANIE Sodium Chloride (Ns) 1,000 mls @ 100 mls/hr IVCONT .Q10H [facility] Last Admin: 04/24/22 10:14 Dose: 100 mls/hr Documented By: LANIE Insulin Human Regular (Myxredlin) 100 unit in 100 mls @ 0 mls/hr IVCONT .Q0M [facility]; Protocol Last Admin: 04/24/22 11:54 Dose: 9 unit/hr, 9 mls/hr Documented By: LANIE Co-signed By: PRIMITIVO Lisinopril (Lisinopril 10 Mg Tablet) 30 mg PO DAILY [facility]; Protocol Last Admin: 04/24/22 09:24 Dose: Not Given Documented By: LANIE Non-Admin Reason: NPO Multivitamins/Vitamin C (Multivitamin Tablet) 1 tab PO DAILY [facility] Last Admin: 04/24/22 09:24 Dose: Not Given Documented By: LANIE Non-Admin Reason: NPO Ondansetron HCl (Ondansetron Hcl 4 Mg/2 Ml Vial) 4 mg IVPUSH Q8H PRN PRN Reason: Nausea and Vomiting Pharmacy Consult (Consult Rx Perform Med Rec) 1 each MISCELLANE ONCE PRN PRN Reason: Consult order Pharmacy Consult (Consult Rx Vancomycin Dosing) 1 each MISCELLANE DAILY PRN PRN Reason: Consult order Sodium Chloride (0.9 % Sodium Chloride Flush 3 Ml Syringe) 3 ml IVFLUSH QSHIFT [facility] Last Admin: 04/24/22 07:40 Dose: 3 ml Documented By: LANIE Labs 04/24/22 07:21 04/24/22 07:21 Labs: Laboratory Results - last 24 hr 04/23/22 04/23/22 04/23/22 14:06 14:06 14:06 MCV MCH MCHC RDW Plt Count MPV Immature Gran % (Auto) Neut % (Auto) Lymph % (Auto) [place] % (Auto) Eos % (Auto) Baso % (Auto) Lymph # (Auto) [place] # (Auto) Eos # (Auto) Baso # (Auto) Abs Immat Gran (auto) Absolute Neuts (auto) Absolute Nucleated RBC Nucleated RBC % (auto) PT 12.0 INR 1.0 VBG pH VBG pCO2 VBG pO2 VBG HCO3 VBG O2 Saturation VBG Base Excess Anion Gap 20 Estim Creat Clear Calc 62.1 Estimated GFR 52 POC Glucose Random Glucose 338 H Lactic Acid 1.9 Calcium 9.3 Magnesium 1.6 Total Bilirubin 0.9 Direct Bilirubin 0.3 AST 14 ALT 17 Alkaline Phosphatase 123 H Ammonia Total Creatine Kinase 24 L Troponin I High Sens B-Natriuretic Peptide Total Protein 7.4 Albumin 4.4 Lipase 24 TSH Free T4 Urine Color Urine Appearance Urine pH Ur Specific [place] Urine Protein Urine Glucose (UA) Urine Ketones Urine Blood Urine Nitrite Ur Leukocyte Esterase Urine RBC Urine WBC Ur Squamous Epith Cells Urine Bacteria Hyaline Casts Urine Opiates Screen Urine Fentanyl Screen Ur Barbiturates Screen Ur Phencyclidine Scrn Ur Amphetamines Screen U Benzodiazepines Scrn Urine Cocaine Screen U Marijuana (THC) Screen Ethyl Alcohol COVID-19 ([facility]) COVID-19 Clin Com Influenza Type A ([place]) Influenza Type B ([place]) Influenza A & B Note 04/23/22 04/23/22 04/23/22 14:06 14:06 14:06 MCV MCH MCHC RDW Plt Count MPV Immature Gran % (Auto) Neut % (Auto) Lymph % (Auto) [place] % (Auto) Eos % (Auto) Baso % (Auto) Lymph # (Auto) [place] # (Auto) Eos # (Auto) Baso # (Auto) Abs Immat Gran (auto) Absolute Neuts (auto) Absolute Nucleated RBC Nucleated RBC % (auto) PT INR VBG pH VBG pCO2 VBG pO2 VBG HCO3 VBG O2 Saturation VBG Base Excess Anion Gap Estim Creat Clear Calc Estimated GFR POC Glucose Random Glucose Lactic Acid Calcium Magnesium Total Bilirubin Direct Bilirubin AST ALT Alkaline Phosphatase Ammonia 37 Total Creatine Kinase Troponin I High Sens 6.9 D B-Natriuretic Peptide Total Protein Albumin Lipase TSH Free T4 Urine Color Urine Appearance Urine pH Ur Specific [place] Urine Protein Urine Glucose (UA) Urine Ketones Urine Blood Urine Nitrite Ur Leukocyte Esterase Urine RBC Urine WBC Ur Squamous Epith Cells Urine Bacteria Hyaline Casts Urine Opiates Screen Urine Fentanyl Screen Ur Barbiturates Screen Ur Phencyclidine Scrn Ur Amphetamines Screen U Benzodiazepines Scrn Urine Cocaine Screen U Marijuana (THC) Screen Ethyl Alcohol COVID-19 ([facility]) Negative COVID-19 Clin Com See Note Influenza Type A ([place]) Influenza Type B ([place]) Influenza A & B Note 04/23/22 04/23/22 04/23/22 14:06 14:06 14:06 MCV MCH MCHC RDW Plt Count MPV Immature Gran % (Auto) Neut % (Auto) Lymph % (Auto) [place] % (Auto) Eos % (Auto) Baso % (Auto) Lymph # (Auto) [place] # (Auto) Eos # (Auto) Baso # (Auto) Abs Immat Gran (auto) Absolute Neuts (auto) Absolute Nucleated RBC Nucleated RBC % (auto) PT INR VBG pH VBG pCO2 VBG pO2 VBG HCO3 VBG O2 Saturation VBG Base Excess Anion Gap Estim Creat Clear Calc Estimated GFR POC Glucose Random Glucose Lactic Acid Calcium Magnesium Total Bilirubin Direct Bilirubin AST ALT Alkaline Phosphatase Ammonia Total Creatine Kinase Troponin I High Sens B-Natriuretic Peptide 89 Total Protein Albumin Lipase TSH 0.29 L Free T4 1.18 Urine Color Urine Appearance Urine pH Ur Specific [place] Urine Protein Urine Glucose (UA) Urine Ketones Urine Blood Urine Nitrite Ur Leukocyte Esterase Urine RBC Urine WBC Ur Squamous Epith Cells Urine Bacteria Hyaline Casts Urine Opiates Screen Urine Fentanyl Screen Ur Barbiturates Screen Ur Phencyclidine Scrn Ur Amphetamines Screen U Benzodiazepines Scrn Urine Cocaine Screen U Marijuana (THC) Screen Ethyl Alcohol < 10 COVID-19 ([facility]) COVID-19 Clin Com Influenza Type A ([place]) Negative Influenza Type B ([place]) Negative Influenza A & B Note See Note 04/23/22 04/23/22 04/23/22 14:07 14:10 14:10 MCV 83.2 MCH 28.0 MCHC 33.6 RDW 16.0 Plt Count 387 D MPV 10.8 Immature Gran % (Auto) 0.5 H Neut % (Auto) 83.2 H Lymph % (Auto) 11.9 L [place] % (Auto) 4.1 Eos % (Auto) 0.0 Baso % (Auto) 0.3 Lymph # (Auto) 2.2 [place] # (Auto) 0.8 Eos # (Auto) 0.0 Baso # (Auto) 0.1 Abs Immat Gran (auto) 0.09 H Absolute Neuts (auto) 15.6 H Absolute Nucleated RBC 0.000 Nucleated RBC % (auto) 0.0 PT INR VBG pH VBG pCO2 VBG pO2 VBG HCO3 VBG O2 Saturation VBG Base Excess Anion Gap Estim Creat Clear Calc Estimated GFR POC Glucose Random Glucose Lactic Acid Calcium Magnesium Total Bilirubin Direct Bilirubin AST ALT Alkaline Phosphatase Ammonia Total Creatine Kinase Troponin I High Sens B-Natriuretic Peptide Total Protein Albumin Lipase TSH Free T4 Urine Color Yellow Urine Appearance Clear Urine pH 6.5 Ur Specific [place] >= 1.030 H Urine Protein 300 (3+) H Urine Glucose (UA) >=1000 H Urine Ketones 80 Urine Blood Negative Urine Nitrite Negative Ur Leukocyte Esterase Negative Urine RBC 0-2 Urine WBC 0-5 Ur Squamous Epith Cells 0-2 Urine Bacteria None Seen Hyaline Casts 0-2 Urine Opiates Screen Not Detected Urine Fentanyl Screen POSITIVE H Ur Barbiturates Screen Not Detected Ur Phencyclidine Scrn Not Detected Ur Amphetamines Screen Not Detected U Benzodiazepines Scrn Not Detected Urine Cocaine Screen Not Detected U Marijuana (THC) Screen Not Detected Ethyl Alcohol COVID-19 ([facility]) COVID-19 Clin Com Influenza Type A ([place]) Influenza Type B ([place]) Influenza A & B Note 04/23/22 04/23/22 04/24/22 14:12 19:06 07:21 MCV 83.6 MCH 27.3 MCHC 32.7 RDW 16.0 Plt Count 343 MPV 10.6 Immature Gran % (Auto) 0.3 Neut % (Auto) 86.3 H Lymph % (Auto) 11.7 L [place] % (Auto) 1.6 L Eos % (Auto) 0.0 Baso % (Auto) 0.1 Lymph # (Auto) 1.8 [place] # (Auto) 0.2 Eos # (Auto) 0.0 Baso # (Auto) 0.0 Abs Immat Gran (auto) 0.05 H Absolute Neuts (auto) 13.0 H Absolute Nucleated RBC 0.000 Nucleated RBC % (auto) 0.0 PT INR VBG pH 7.41 VBG pCO2 48 VBG pO2 40 VBG HCO3 31 H VBG O2 Saturation 53.0 VBG Base Excess 5.2 Anion Gap Estim Creat Clear Calc Estimated GFR POC Glucose 229 H Random Glucose Lactic Acid Calcium Magnesium Total Bilirubin Direct Bilirubin AST ALT Alkaline Phosphatase Ammonia Total Creatine Kinase Troponin I High Sens B-Natriuretic Peptide Total Protein Albumin Lipase TSH Free T4 Urine Color Urine Appearance Urine pH Ur Specific [place] Urine Protein Urine Glucose (UA) Urine Ketones Urine Blood Urine Nitrite Ur Leukocyte Esterase Urine RBC Urine WBC Ur Squamous Epith Cells Urine Bacteria Hyaline Casts Urine Opiates Screen Urine Fentanyl Screen Ur Barbiturates Screen Ur Phencyclidine Scrn Ur Amphetamines Screen U Benzodiazepines Scrn Urine Cocaine Screen U Marijuana (THC) Screen Ethyl Alcohol COVID-19 ([facility]) COVID-19 Clin Com Influenza Type A ([place]) Influenza Type B ([place]) Influenza A & B Note 04/24/22 04/24/22 04/24/22 07:21 08:28 11:01 MCV MCH MCHC RDW Plt Count MPV Immature Gran % (Auto) Neut % (Auto) Lymph % (Auto) [place] % (Auto) Eos % (Auto) Baso % (Auto) Lymph # (Auto) [place] # (Auto) Eos # (Auto) Baso # (Auto) Abs Immat Gran (auto) Absolute Neuts (auto) Absolute Nucleated RBC Nucleated RBC % (auto) PT INR VBG pH VBG pCO2 VBG pO2 VBG HCO3 VBG O2 Saturation VBG Base Excess Anion Gap 24 H Estim Creat Clear Calc 57.8 Estimated GFR 48 POC Glucose 386 H* 325 H Random Glucose 419 H* Lactic Acid Calcium 8.6 D Magnesium Total Bilirubin Direct Bilirubin AST ALT Alkaline Phosphatase Ammonia Total Creatine Kinase Troponin I High Sens B-Natriuretic Peptide Total Protein Albumin Lipase TSH Free T4 Urine Color Urine Appearance Urine pH Ur Specific [place] Urine Protein Urine Glucose (UA) Urine Ketones Urine Blood Urine Nitrite Ur Leukocyte Esterase Urine RBC Urine WBC Ur Squamous Epith Cells Urine Bacteria Hyaline Casts Urine Opiates Screen Urine Fentanyl Screen Ur Barbiturates Screen Ur Phencyclidine Scrn Ur Amphetamines Screen U Benzodiazepines Scrn Urine Cocaine Screen U Marijuana (THC) Screen Ethyl Alcohol COVID-19 ([facility]) COVID-19 Clin Com Influenza Type A ([place]) Influenza Type B ([place]) Influenza A & B Note 04/24/22 13:01 MCV MCH MCHC RDW Plt Count MPV Immature Gran % (Auto) Neut % (Auto) Lymph % (Auto) [place] % (Auto) Eos % (Auto) Baso % (Auto) Lymph # (Auto) [place] # (Auto) Eos # (Auto) Baso # (Auto) Abs Immat Gran (auto) Absolute Neuts (auto) Absolute Nucleated RBC Nucleated RBC % (auto) PT INR VBG pH VBG pCO2 VBG pO2 VBG HCO3 VBG O2 Saturation VBG Base Excess Anion Gap Estim Creat Clear Calc Estimated GFR POC Glucose 359 H* Random Glucose Lactic Acid Calcium Magnesium Total Bilirubin Direct Bilirubin AST ALT Alkaline Phosphatase Ammonia Total Creatine Kinase Troponin I High Sens B-Natriuretic Peptide Total Protein Albumin Lipase TSH Free T4 Urine Color Urine Appearance Urine pH Ur Specific [place] Urine Protein Urine Glucose (UA) Urine Ketones Urine Blood Urine Nitrite Ur Leukocyte Esterase Urine RBC Urine WBC Ur Squamous Epith Cells Urine Bacteria Hyaline Casts Urine Opiates Screen Urine Fentanyl Screen Ur Barbiturates Screen Ur Phencyclidine Scrn Ur Amphetamines Screen U Benzodiazepines Scrn Urine Cocaine Screen U Marijuana (THC) Screen Ethyl Alcohol COVID-19 ([facility]) COVID-19 Clin Com Influenza Type A ([place]) Influenza Type B ([place]) Influenza A & B Note Microbiology Microbiology Results: Microbiology 04/23/22 14:06 Blood Culture - Preliminary Blood - Venous Prelim: GPC Gram Stain only Assessment and Plan (1) Encephalopathy: Status: Acute Plan 57F PMH of bipolar disorder, diabetes, hypertension, IBS, peripheral neuropathy, polysubstance abuse, seizure disorder, who was discharged recently on 04/09 for UTI encephalopathy presented with ams sepsis with acute toxic metabolic encephalopathy concern for meningitis 1/2 blood cultures gpc empiric vanc, ceftriaxone, ampicilin LP, MRI DM with mild DKA insulin infusion, ns, monitor hypertension lisinopril history of recent stroke (03/2022) continue aspirin and statin bipolar disorder hodling meds while altered opiate dependence addiction medicine consult once more awake DVT prophylaxis:? Lovenox Full code reason for continued hospitalization: acutely altered Time Spent With Patient Time: Total time managing care of this patient today ____ minutes. Quality Stroke Does the patient have a stroke diagnosis?: No VTE Prior VTE?: No VTE Risk Level:: Medical - moderate - high VTE Device Contraindication: Treatment Not Indicated VTE Drug Contraindication: N/A - Med Ordered
[2022-04-24 13:22] LABS: Anion Gap 21 (12-20); Blood Urea Nitrogen 27 mg/dL (9-16); Calcium 8.3 mg/dL (8.4-10.2); Carbon Dioxide 17 mmol/L (22-29); Chloride 109 mmol/L (96-108); Creatinine Clr Calc Pharmacy 62.6; Estimated Glomerular Filt Rate 53; Glucose Random 380 mg/dL (60-115); Potassium 4.4 mmol/L (3.3-5.1); Sodium 143 mmol/L (135-145)
--- NOTE | 2022-04-24 13:34 | MHC.CM.PN ---
CM received a call from Patient's Roommate/Jaxson who reports that Patient cannot return to their prior living arrangements. Apparently when EMT were there to pepper picker Patient and noticed all the trash on the floor, Building Management was notified and Jaxson now states that he is facing fines and possible eviction/homelessness d/t breaking the lease. CM will follow.
[2022-04-24 14:11] LABS: Glucose, Whole Blood 337 mg/dL (60-115)
[2022-04-24 14:38] LABS: CDiff Gene PCR NEGATIVE (Negative)
[2022-04-24 15:02] LABS: Glucose, Whole Blood 322 mg/dL (60-115)
[2022-04-24] MEDS: Insulin Lispro 100 UNIT/ML 3 ML VIAL SUBCUT ×4 (15:11→23:00)
--- NOTE | 2022-04-24 15:24 | PC.NURSE ---
Pt to IR then to room.
--- NOTE | 2022-04-24 15:37 | W.PM.IDCN ---
History of Present Illness Data of Consult Service Date: 04/24/22 Requesting physician: Stephen Grimaldo Primary Care Provider: Bri Milligan CNP HPI Reason for consult: sepsis She presents with encephalopathy from home and found incontinent. She has had fever. She has had fentanyl use disorder in past. She has gram positive cocci in blood. LP cannot be obtained due to patient reported agitation and patient has rods in back. [facility] Past Medical History Medical History Asthma Bipolar disorder Chronic pain Diabetes History of recent stroke Hypertension IBS (irritable bowel syndrome) Opioid use disorder Peripheral neuropathy Polysubstance abuse Seizure Family History Family history: reviewed and not pertinent Surgical History Surgical History History of appendectomy Social History Social History Household Members: Unknown / Unable to assess Household Members Other:: roommate Housing: Unknown / Unable to assess Do you presently have visiting nurse or other home services: No Unable to assess alcohol history related to: Refusing to respond Alcohol intake: unknown Patient Tobacco Use Status: Refuse Tobacco use screen Tobacco use type: Cigarette Cigarette Packs Per Day: 1 Cigarettes Per Day: 20.0 Substance Use Type: Painkillers Advance Directives Date on File: 09/03/21 service: No Current occupational status: disabled Meds Allergies Allergy/AdvReac Type Severity Reaction Status Date / Time morphine [MORPHINE] Allergy Unknown RASH, vomit Verified 01/15/22 00:48 prednisone Allergy Unknown hives Verified 01/15/22 00:48 Sulfa (Sulfonamide Allergy Unknown UNKNOWN, Verified 01/15/22 00:48 Antibiotics) hives [SULFA (SULFONAMIDE ANTIBIOTICS)] Active Medications: Current Medications Acetaminophen (Acetaminophen 325 Mg Tablet) 650 mg PO Q6H PRN PRN Reason: Pain, Mild (Pain Scale 1-3) Aspirin (Aspirin Enteric Coated 81 Mg Tablet.) 81 mg PO DAILY [facility] Atorvastatin Calcium (Atorvastatin Calcium 40 Mg Tablet) 40 mg PO BEDTIME [facility] Dextrose (Dextrose 50 % 25 Gm/50 Ml Syringe) 25 gm IVPUSH Q30M PRN PRN Reason: Nursing Actions in Insulin Infusion Protocol Dextrose (Dextrose 50 % 25 Gm/50 Ml Syringe) 25 gm IVPUSH Q15M PRN; Protocol PRN Reason: per Hypoglycemia Standing Ord. Docusate Sodium (Docusate Sodium 100 Mg Capsule) 100 mg PO DAILY PRN PRN Reason: Constipation Enoxaparin Sodium (Enoxaparin Sodium 40 Mg/0.4 Ml Syringe) 40 mg SUBCUT Q24H [facility] Last Admin: 04/23/22 20:17 Dose: 40 mg Glucose (Glucose Gel 15 Gm Gel..Gram.) 15 gm PO Q15M PRN; Protocol PRN Reason: per Hypoglycemia Standing Ord. Ceftriaxone Sodium 2 gm/ (Sodium Chloride) 50 mls @ 100 mls/hr IV Q12H [facility] Last Infusion: 04/24/22 04:37 Dose: Infused Ampicillin Sodium 2 gm/ Sodium (Chloride) 100 mls @ 100 mls/hr IV Q4H [facility] Last Admin: 04/24/22 15:11 Dose: 100 mls/hr Vancomycin HCl 500 mg/ Sodium (Chloride) 110 mls @ 110 mls/hr IV Q12H [facility] Last Infusion: 04/24/22 10:25 Dose: Infused Sodium Chloride (Ns) 1,000 mls @ 100 mls/hr IVCONT .Q10H [facility] Last Admin: 04/24/22 10:14 Dose: 100 mls/hr Insulin Human Lispro (Insulin Lispro 100 Unit/Ml 3 Ml Vial) 0 unit SUBCUT Q2H [facility]; Protocol Last Admin: 04/24/22 15:11 Dose: 8 unit Lisinopril (Lisinopril 10 Mg Tablet) 30 mg PO DAILY [facility]; Protocol Last Admin: 04/24/22 09:24 Dose: Not Given Multivitamins/Vitamin C (Multivitamin Tablet) 1 tab PO DAILY [facility] Last Admin: 04/24/22 09:24 Dose: Not Given Ondansetron HCl (Ondansetron Hcl 4 Mg/2 Ml Vial) 4 mg IVPUSH Q8H PRN PRN Reason: Nausea and Vomiting Pharmacy Consult (Consult Rx Perform Med Rec) 1 each MISCELLANE ONCE PRN PRN Reason: Consult order Pharmacy Consult (Consult Rx Vancomycin Dosing) 1 each MISCELLANE DAILY PRN PRN Reason: Consult order Sodium Chloride (0.9 % Sodium Chloride Flush 3 Ml Syringe) 3 ml IVFLUSH QSHIFT [facility] Last Admin: 04/24/22 15:13 Dose: 3 ml Home Medications Medication Instructions Recorded Confirmed Last Taken Type lorazepam 0.5 mg tablet 0.5 mg PO DAILY 07/15/21 04/23/22 03/13/22 History metformin 1,000 mg tablet 1,000 mg PO BIDWM 09/03/21 04/23/22 03/13/22 History multivitamin 1 tab PO DAILY 09/03/21 04/23/22 03/13/22 History atorvastatin 20 mg tablet 20 mg PO DAILY 01/15/22 04/23/22 03/13/22 History sitagliptin phosphate 100 mg 100 tab PO BEDTIME 01/15/22 04/23/22 03/12/22 History tablet (Januvia) clonidine HCl 0.2 mg tablet 1 tab PO TID PRN Anxiety 03/08/22 04/23/22 03/07/22 History hydralazine 25 mg tablet 1 tab PO TID 03/08/22 04/23/22 03/13/22 History prazosin 1 mg capsule 1 mg PO BEDTIME 03/08/22 04/23/22 03/12/22 History pregabalin 100 mg capsule 100 mg PO TID 03/08/22 04/23/22 03/13/22 History quetiapine 200 mg tablet 1 tab PO BEDTIME 03/08/22 04/23/22 03/12/22 History clonazepam 0.5 mg tablet 1 tab PO DAILY PRN panic attack 04/06/22 04/23/22 Unknown History haloperidol 1 mg tablet 1 mg PO TID 04/06/22 04/23/22 Unknown History haloperidol 2 mg tablet 1 tab PO TID 04/06/22 04/23/22 Unknown History lisinopril 30 mg tablet 1 tab PO DAILY 04/06/22 04/23/22 Unknown History polyethylene glycol 3350 17 17 g PO DAILY 04/06/22 04/23/22 Unknown History gram/dose oral powder Physical Exam Vital Signs: Vital Signs: Last Vital Signs Temp 99.3 F 04/24/22 13:51 Pulse 76 04/24/22 13:51 Resp 16 04/24/22 13:51 BP 171/89 H 04/24/22 13:51 Pulse Ox 96 04/24/22 13:51 O2 Del Method 04/24/22 13:51 BMI result Body Mass Index 32.1 Const: General: cooperative HEENT: Head: Yes normal to inspection Face and sinus: Yes normal facial exam Mouth: Normal oral and palatal mucosa present Teeth and gingiva: dentition normal Eyes: General: appearance normal, both eyes and all related structures Pupils: Equal, round and reactive pupils present Resp: Effort & Inspection: normal respiratory effort Cardio: Rate: regular rate Rhythm: regular rhythm GI: Palpation (GI): Soft to palpation and nontender : General: Yes no CVA tenderness Back/Spine/Pelvis: Back: no CVA tenderness Skin: General skin exam: no rashes or lesions noted Neuro: General: moves all extremities Cranial nerves: Yes Equal, round and reactive pupils present Extrem: General: Yes normal to inspection Psych: Other: not verbal ,but alert,neck supple Results Labs 04/24/22 07:21 04/24/22 12:39 Labs: Short CBC 04/24/22 Range/Units 07:21 WBC 15.1 H (4.8-10.8) X10*3/uL Hgb 13.0 (12.0-16.0) g/dl Hct 39.8 (37.0-47.0) % Plt Count 343 (160-400) X10*3/uL BMP 04/24/22 04/24/22 07:21 12:39 Sodium 140 143 Potassium 4.2 4.4 Chloride 106 109 H Carbon Dioxide 14 L 17 L BUN 24 H 27 H Creatinine 1.16 1.07 Calcium 8.6 D 8.3 L Microbiology Microbiology Results: Microbiology 04/23/22 14:06 Blood - Venous Blood Culture - Preliminary Prelim: GPC Gram Stain only Assessment and Plan (1) Encephalopathy: Status: Acute She has bacteremia and confusion. There is possible staph infection blood (2) Fever of unknown origin: Status: Acute Discontinue Ampicillin since gram positive cocci ,not shane so dont think listeria. Continue Ceftriaxone and Vancomyin Can hold LP for now. (3) Fentanyl use disorder, severe: Status: Acute Time Spent With Patient Time: Total time managing care of this patient today ____ minutes.
[2022-04-24 15:58] LABS: Adenovirus F 40/41 Not Detected (Not Detect.); Astrovirus Not Detected (Not Detect.); Campylobacter Not Detected (Not Detect.); Cryptosporidium Not Detected (Not Detect.); Cyclospora cayetanensis Not Detected (Not Detect.); E. coli EAEC Not Detected (Not Detect.); E. coli EPEC Not Detected (Not Detect.); E. coli ETEC Not Detected (Not Detect.); E. coli STEC Not Detected (Not Detect.); Entamoeba histolytica Not Detected (Not Detect.); Giardia lamblia Not Detected (Not Detect.); Norovirus GI/GII Not Detected (Not Detect.); Plesiomonas shigelloides Not Detected (Not Detect.); Rotavirus A Not Detected (Not Detect.); Salmonella Not Detected (Not Detect.); Sapovirus Not Detected (Not Detect.); Shigella sp./EIEC Not Detected (Not Detect.); Vibrio Not Detected (Not Detect.); Vibrio Cholerae Not Detected (Not Detect.); Yersinia enterocolitica Not Detected (Not Detect.)
--- NOTE | 2022-04-24 16:14 | HO.RADPN ---
RADIOLOGY Narrative Narrative: LP performed using 22g spinal needle at L1/L2. Opening pressure 19 cm h2o. 8 ml clear CSF removed.
[2022-04-24 16:56] LABS: Glucose, Whole Blood 276 mg/dL (60-115)
[2022-04-24 17:32] LABS: Glucose CSF 246 mg/dL; Total Protein CSF 99.3 mg/dL (15-45)
[2022-04-24 17:41] LABS: CSF Appearance Clear, Colorless
[2022-04-24 17:42] LABS: CSF Tube # 3
[2022-04-24 18:01] LABS: Appearance CSF CLEAR
[2022-04-24 18:02] LABS: CSF Monos 18 %; CSF Tube # 4; CSF Volume 1.2 ML; Color CSF COLORLESS; Lymphocytes CSF 72 %; Neutrophils CSF 10 %; Red Blood Cell CSF 31 MM*3; White Blood Cell CSF 9 MM*3
[2022-04-24 18:33] LABS: Anion Gap 20 (12-20); Blood Urea Nitrogen 31 mg/dL (9-16); Calcium 8.7 mg/dL (8.4-10.2); Carbon Dioxide 18 mmol/L (22-29); Chloride 111 mmol/L (96-108); Creatinine Clr Calc Pharmacy 57.8; Estimated Glomerular Filt Rate 48; Glucose Random 290 mg/dL (60-115); Potassium 4.2 mmol/L (3.3-5.1); Sodium 145 mmol/L (135-145)
[2022-04-24 18:52] LABS: Cryptococcus neoformans/gattii Not Detected (Not Detect.); Enterovirus Not Detected (Not Detect.); Escherichia coli K1 Not Detected (Not Detect.); Haemophilus influenzae Not Detected (Not Detect.); Herpes simplex virus 1 Not Detected (Not Detect.); Herpes simplex virus 2 Not Detected (Not Detect.)
[2022-04-24 18:53] LABS: Human herpesvirus 6 Not Detected (Not Detect.); Human parechovirus Not Detected (Not Detect.); Listeria monocytogenes Not Detected (Not Detect.)
[2022-04-24 18:54] LABS: Neisseria meningitidis Not Detected (Not Detect.); Streptococcus agalactiae Not Detected (Not Detect.); Streptococcus pneumoniae Not Detected (Not Detect.); Varicella zoster virus Not Detected (Not Detect.)
[2022-04-24] MEDS: Enoxaparin Sodium 40 MG/0.4 ML SYRINGE SUBCUT (19:43)
[2022-04-24 19:53] LABS: Glucose, Whole Blood 276 mg/dL (60-115)
[2022-04-24 21:01] LABS: Glucose, Whole Blood 270 mg/dL (60-115)
[2022-04-24] MEDS: Atorvastatin Calcium 40 MG TABLET PO (21:31)
[2022-04-24 22:51] LABS: Glucose, Whole Blood 223 mg/dL (60-115)
[2022-04-25] VITALS (8 sets, daily range): BP systolic 125–193; BP diastolic 60–85; PULSE 69–82; RESP 16–20; TEMP 36.2–37.3; O2SAT 95–97; BMI 30.2
[2022-04-25 00:39] LABS: Glucose, Whole Blood 216 mg/dL (60-115)
[2022-04-25] MEDS: Insulin Lispro 100 UNIT/ML 3 ML VIAL SUBCUT ×8 (00:42→20:46)
[2022-04-25 02:45] LABS: Glucose, Whole Blood 190 mg/dL (60-115)
[2022-04-25] MEDS: 0.9 % Sodium Chloride 1,000 ML 100 ML IVCONT (04:19)
[2022-04-25] MEDS: cefTRIAXone sodium 2 GM in 0.9 % Sodium Chloride 50 ML IV (04:19)
[2022-04-25 04:54] LABS: Glucose, Whole Blood 205 mg/dL (60-115)
[2022-04-25 06:35] LABS: Glucose, Whole Blood 211 mg/dL (60-115)
[2022-04-25 06:46] LABS: Vancomycin Trough 11.2 mcg/mL (10.0-20.0)
[2022-04-25 06:47] LABS: Hematocrit 37.8 % (37.0-47.0); Hemoglobin 12.6 g/dl (12.0-16.0); Mean Corpuscular HGB Conc 33.3 g/dl (31.0-35.0); Mean Corpuscular Hemoglobin 27.3 pg (27.0-33.0); Mean Platelet Volume 10.6 fL (9.4-12.3); Platelet Count 361 X10*3/uL (160-400); Red Blood Count 4.61 X10*6/uL (4.20-5.50); Red Cell Distribution Width 15.9 % (11.0-16.0); White Blood Count 21.9 X10*3/uL (4.8-10.8)
--- NOTE | 2022-04-25 07:00 | CA_ITS ---
Transthoracic Echocardiogram Limited Patient (Last, First, Middle): Kaylyn Cruz, Gender: Female Date of : 1965 Age: 57 Procedure Date: 04/25/2022 Procedure Type: Transthoracic Echocardiogram Limited Location: S3W Height: 165.1 cm Weight: 87.54 kg BSA: 1.95 m2 Heart Rate: bpm BP: 174 / 75 mmHg Report Analyst: Referring MD: Stephen Grimaldo MD Symptoms: bacteremia Study Quality: Fair ECG Rhythm: Sinus Conclusions: - Technically difficult study. - Valves are not visualized. - Normal LV function. Findings Left Ventricle Normal left ventricular cavity size. The left ventricular systolic function is hyperdynamic. The visually estimated ejection fraction is >70%. Regional wall motion abnormalities can not be excluded due to suboptimal endocardial definition. Diastolic function is indeterminate on the basis of available data. Right Ventricle Normal right ventricular cavity size and systolic function. Atria The left atrium was not well visualized. The right atrium was not well visualized. Aortic Valve The aortic valve was not well visualized. Mitral Valve The mitral valve was not well visualized. Pulmonic Valve The pulmonic valve was not well visualized. Tricuspid Valve The tricuspid valve was not well visualized. Great Vessels The aorta was not well visualized. The pulmonary artery was not well visualized. Venous The inferior vena cava is normal in size and collapses greater than 50% with inspiration. Pericardium/Pleural There is no evidence of pericardial effusion. Prior Study Comparison No significant change compared to prior study dated: 12/13/2022. Current study Is extremely limited due to compare serially. Recommendations, Care & Conclusions Consider a JOVANA if clinically appropriate. Measurements 2D Linear Measurements IVSd: 1.28 0.6-0.9/0.6-1.0 cm LVIDd: 3.39 3.9-5.3/4.2-5.9 cm LVIDd Index: 1.74 2.4-3.2/2.2-3.1 cm/m2 LVIDs: 2.28 2.0-3.6 cm LVPWd: 1.36 0.7-1.1 cm LV Mass: 187.51 67-162/88-224 g LV Mass Index: 96.16 43-95/49-115 g/m2 Aortic Valve AoV Pk Ritchie: 1.59 AoV Mn Ritchie: 1.04 AoV VTI: 0.35 AoV Pk Grad: 10.00 Aov Mn Grad: 5.00 Updated in Other Vendor System with Status of Final Jeffrey Harrington MD electronically signed on 04/25/2022 4:44:18 PM with status of Final
[2022-04-25 07:04] LABS: Blood Urea Nitrogen 31 mg/dL (9-16); Calcium 8.9 mg/dL (8.4-10.2); Creatinine Clr Calc Pharmacy 67.7; Estimated Glomerular Filt Rate 60; Glucose Fasting 202 mg/dL (60-99)
[2022-04-25 07:19] LABS: Anion Gap 20 (12-20); Carbon Dioxide 20 mmol/L (22-29); Chloride 111 mmol/L (96-108); Potassium 3.5 mmol/L (3.3-5.1); Sodium 147 mmol/L (135-145)
--- NOTE | 2022-04-25 08:06 | HE.PHANOTE ---
RE: vanco Trough on 04/25 came back 11.2; increased dose to 750mg Q12H with predicted AUC 558mg/L with trough of 16.4mg/L. Next level to be drawn after 3 doses on 04/26 @1900
[2022-04-25] MEDS: Aspirin Enteric Coated 81 MG TABLET.DR PO (08:10)
[2022-04-25] MEDS: Multivitamin TABLET 1 TAB PO (08:10)
[2022-04-25] MEDS: lisinopriL 10 MG TABLET 30 MG PO (08:10)
[2022-04-25] MEDS: vancomycin HCL 750 MG in 0.9 % Sodium Chloride 250 ML 265 MG IV ×2 (08:16→20:51)
[2022-04-25 08:19] LABS: Glucose, Whole Blood 198 mg/dL (60-115)
--- NOTE | 2022-04-25 09:45 | HO.PM.IMPN ---
Subjective Subjective Date of Service: 04/25/22 Interval History: more responsive, following simple commands, no complaints Physical Exam Vital Signs: Vital Signs: Last Vital Signs Temp 98.4 F 04/25/22 07:55 Pulse 75 04/25/22 07:55 Resp 18 04/25/22 07:55 BP 184/85 H 04/25/22 07:55 Pulse Ox 96 04/25/22 07:55 O2 Del Method 04/25/22 07:55 BMI result Body Mass Index 30.2 alert, answering simple questions, confused Objective Data Active Medications Acetaminophen (Acetaminophen 325 Mg Tablet) 650 mg PO Q6H PRN PRN Reason: Pain, Mild (Pain Scale 1-3) Aspirin (Aspirin Enteric Coated 81 Mg Tablet.Dr) 81 mg PO DAILY [facility] Last Admin: 04/25/22 08:10 Dose: 81 mg Documented By: NINFA Atorvastatin Calcium (Atorvastatin Calcium 40 Mg Tablet) 40 mg PO BEDTIME [facility] Last Admin: 04/24/22 21:31 Dose: 40 mg Documented By: DIPESH Dextrose (Dextrose 50 % 25 Gm/50 Ml Syringe) 25 gm IVPUSH Q30M PRN PRN Reason: Nursing Actions in Insulin Infusion Protocol Dextrose (Dextrose 50 % 25 Gm/50 Ml Syringe) 25 gm IVPUSH Q15M PRN; Protocol PRN Reason: per Hypoglycemia Standing Ord. Docusate Sodium (Docusate Sodium 100 Mg Capsule) 100 mg PO DAILY PRN PRN Reason: Constipation Enoxaparin Sodium (Enoxaparin Sodium 40 Mg/0.4 Ml Syringe) 40 mg SUBCUT Q24H [facility] Last Admin: 04/24/22 19:43 Dose: 40 mg Documented By: DIPESH Glucose (Glucose Gel 15 Gm Gel..Gram.) 15 gm PO Q15M PRN; Protocol PRN Reason: per Hypoglycemia Standing Ord. Sodium Chloride (Sodium Chloride 0.45 %) 1,000 mls @ 100 mls/hr IVCONT .Q10H [facility] Vancomycin HCl 750 mg/ Sodium (Chloride) 265 mls @ 265 mls/hr IV Q12H [facility] Last Admin: 04/25/22 08:16 Dose: 265 mls/hr Documented By: NINFA Insulin Human Lispro (Insulin Lispro 100 Unit/Ml 3 Ml Vial) 0 unit SUBCUT Q6H [facility]; Protocol Last Admin: 04/25/22 08:31 Dose: 2 unit Documented By: NINFA Lisinopril (Lisinopril 10 Mg Tablet) 30 mg PO DAILY [facility]; Protocol Last Admin: 04/25/22 08:10 Dose: 30 mg Documented By: NINFA Multivitamins/Vitamin C (Multivitamin Tablet) 1 tab PO DAILY [facility] Last Admin: 04/25/22 08:10 Dose: 1 tab Documented By: NINFA Ondansetron HCl (Ondansetron Hcl 4 Mg/2 Ml Vial) 4 mg IVPUSH Q8H PRN PRN Reason: Nausea and Vomiting Pharmacy Consult (Consult Rx Perform Med Rec) 1 each MISCELLANE ONCE PRN PRN Reason: Consult order Pharmacy Consult (Consult Rx Vancomycin Dosing) 1 each MISCELLANE DAILY PRN PRN Reason: Consult order Sodium Chloride (0.9 % Sodium Chloride Flush 3 Ml Syringe) 3 ml IVFLUSH QSHIFT [facility] Last Admin: 04/25/22 08:32 Dose: Not Given Documented By: NINFA Non-Admin Reason: IV Running Labs 04/25/22 06:10 04/25/22 06:10 Labs: Laboratory Results - last 24 hr 04/24/22 04/24/22 04/24/22 11:01 12:33 12:33 MCV MCH MCHC RDW Plt Count MPV Absolute Nucleated RBC Nucleated RBC % (auto) Anion Gap Estim Creat Clear Calc Estimated GFR POC Glucose 325 H Random Glucose Fasting Glucose Calcium CSF Tube Number CSF Volume CSF Appearance CSF Color CSF WBC CSF RBC CSF Neutrophils CSF Lymphocytes CSF Monocytes % CSF Appearance (b) CSF Glucose CSF Total Protein CSF C.neoform/gat PCR CSF CMV DNA (PCR) CSF Enterovirus (PCR) CSF E. coli K1 (PCR) CSF H. influenzae (PCR) CSF HSV I (PCR) CSF HSV II (PCR) CSF HHV 6 (PCR) CSF L.monocytogenes PCR CSF N. meningitidis PCR CSF Parechovirus (PCR) CSF S. agalactiae (PCR) CSF S. pneumoniae (PCR) CSF VZV (PCR) Stl C. cayetanensis PCR Not Detected Stool Rotavirus A PCR Not Detected Stl Adenov F 40/41 PCR Not Detected Stool Astrovirus (PCR) Not Detected Stool Campylobacter PCR Not Detected Stool Cryptosporidium PCR Not Detected Stl Sh Tox Pr E STEC PCR Not Detected Stool E coli O157 PCR Not applicable Stl Enterotoxigenic E PCR Not Detected Stool EPEC (PCR) Not Detected Stool EAEC (PCR) Not Detected Stl E. histolytica PCR Not Detected Stool Giardia Lamblia PCR Not Detected Stl P. shigelloides PCR Not Detected Stool Salmonella PCR Not Detected Stool Sapovirus (PCR) Not Detected Stl Shigella/EIEC PCR Not Detected St Y.enterocolitica PCR Not Detected Stool Vibrio (PCR) Not Detected Stl Vibrio cholerae PCR Not Detected Stl Norovirus GI/GII PCR Not Detected Vancomycin Trough C. difficile Tox B Gene NEGATIVE 04/24/22 04/24/22 04/24/22 12:39 13:01 14:07 MCV MCH MCHC RDW Plt Count MPV Absolute Nucleated RBC Nucleated RBC % (auto) Anion Gap 21 H Estim Creat Clear Calc 62.6 Estimated GFR 53 POC Glucose 359 H* 337 H Random Glucose 380 H* Fasting Glucose Calcium 8.3 L CSF Tube Number CSF Volume CSF Appearance CSF Color CSF WBC CSF RBC CSF Neutrophils CSF Lymphocytes CSF Monocytes % CSF Appearance (b) CSF Glucose CSF Total Protein CSF C.neoform/gat PCR CSF CMV DNA (PCR) CSF Enterovirus (PCR) CSF E. coli K1 (PCR) CSF H. influenzae (PCR) CSF HSV I (PCR) CSF HSV II (PCR) CSF HHV 6 (PCR) CSF L.monocytogenes PCR CSF N. meningitidis PCR CSF Parechovirus (PCR) CSF S. agalactiae (PCR) CSF S. pneumoniae (PCR) CSF VZV (PCR) Stl C. cayetanensis PCR Stool Rotavirus A PCR Stl Adenov F 40/41 PCR Stool Astrovirus (PCR) Stool Campylobacter PCR Stool Cryptosporidium PCR Stl Sh Tox Pr E STEC PCR Stool E coli O157 PCR Stl Enterotoxigenic E PCR Stool EPEC (PCR) Stool EAEC (PCR) Stl E. histolytica PCR Stool Giardia Lamblia PCR Stl P. shigelloides PCR Stool Salmonella PCR Stool Sapovirus (PCR) Stl Shigella/EIEC PCR St Y.enterocolitica PCR Stool Vibrio (PCR) Stl Vibrio cholerae PCR Stl Norovirus GI/GII PCR Vancomycin Trough C. difficile Tox B Gene 04/24/22 04/24/22 04/24/22 14:58 16:26 16:26 MCV MCH MCHC RDW Plt Count MPV Absolute Nucleated RBC Nucleated RBC % (auto) Anion Gap Estim Creat Clear Calc Estimated GFR POC Glucose 322 H Random Glucose Fasting Glucose Calcium CSF Tube Number 3 CSF Volume CSF Appearance CSF Color CSF WBC CSF RBC CSF Neutrophils CSF Lymphocytes CSF Monocytes % CSF Appearance (b) Clear, Colorless CSF Glucose 246 CSF Total Protein 99.3 H CSF C.neoform/gat PCR Not Detected CSF CMV DNA (PCR) Not Detected CSF Enterovirus (PCR) Not Detected CSF E. coli K1 (PCR) Not Detected CSF H. influenzae (PCR) Not Detected CSF HSV I (PCR) Not Detected CSF HSV II (PCR) Not Detected CSF HHV 6 (PCR) Not Detected CSF L.monocytogenes PCR Not Detected CSF N. meningitidis PCR Not Detected CSF Parechovirus (PCR) Not Detected CSF S. agalactiae (PCR) Not Detected CSF S. pneumoniae (PCR) Not Detected CSF VZV (PCR) Not Detected Stl C. cayetanensis PCR Stool Rotavirus A PCR Stl Adenov F 40/41 PCR Stool Astrovirus (PCR) Stool Campylobacter PCR Stool Cryptosporidium PCR Stl Sh Tox Pr E STEC PCR Stool E coli O157 PCR Stl Enterotoxigenic E PCR Stool EPEC (PCR) Stool EAEC (PCR) Stl E. histolytica PCR Stool Giardia Lamblia PCR Stl P. shigelloides PCR Stool Salmonella PCR Stool Sapovirus (PCR) Stl Shigella/EIEC PCR St Y.enterocolitica PCR Stool Vibrio (PCR) Stl Vibrio cholerae PCR Stl Norovirus GI/GII PCR Vancomycin Trough C. difficile Tox B Gene 04/24/22 04/24/22 04/24/22 16:26 16:51 17:46 MCV MCH MCHC RDW Plt Count MPV Absolute Nucleated RBC Nucleated RBC % (auto) Anion Gap 20 Estim Creat Clear Calc 57.8 Estimated GFR 48 POC Glucose 276 H Random Glucose 290 H Fasting Glucose Calcium 8.7 CSF Tube Number 4 CSF Volume 1.2 CSF Appearance CLEAR CSF Color COLORLESS CSF WBC 9 CSF RBC 31 CSF Neutrophils 10 CSF Lymphocytes 72 CSF Monocytes % 18 CSF Appearance (b) CSF Glucose CSF Total Protein CSF C.neoform/gat PCR CSF CMV DNA (PCR) CSF Enterovirus (PCR) CSF E. coli K1 (PCR) CSF H. influenzae (PCR) CSF HSV I (PCR) CSF HSV II (PCR) CSF HHV 6 (PCR) CSF L.monocytogenes PCR CSF N. meningitidis PCR CSF Parechovirus (PCR) CSF S. agalactiae (PCR) CSF S. pneumoniae (PCR) CSF VZV (PCR) Stl C. cayetanensis PCR Stool Rotavirus A PCR Stl Adenov F PCR Stool Astrovirus (PCR) Stool Campylobacter PCR Stool Cryptosporidium PCR Stl Sh Tox Pr E STEC PCR Stool E coli O157 PCR Stl Enterotoxigenic E PCR Stool EPEC (PCR) Stool EAEC (PCR) Stl E. histolytica PCR Stool Giardia Lamblia PCR Stl P. shigelloides PCR Stool Salmonella PCR Stool Sapovirus (PCR) Stl Shigella/EIEC PCR St Y.enterocolitica PCR Stool Vibrio (PCR) Stl Vibrio cholerae PCR Stl Norovirus GI/GII PCR Vancomycin Trough C. difficile Tox B Gene 04/24/22 04/24/22 04/24/22 19:24 20:57 22:48 MCV MCH MCHC RDW Plt Count MPV Absolute Nucleated RBC Nucleated RBC % (auto) Anion Gap Estim Creat Clear Calc Estimated GFR POC Glucose 276 H 270 H 223 H Random Glucose Fasting Glucose Calcium CSF Tube Number CSF Volume CSF Appearance CSF Color CSF WBC CSF RBC CSF Neutrophils CSF Lymphocytes CSF Monocytes % CSF Appearance (b) CSF Glucose CSF Total Protein CSF C.neoform/gat PCR CSF CMV DNA (PCR) CSF Enterovirus (PCR) CSF E. coli K1 (PCR) CSF H. influenzae (PCR) CSF HSV I (PCR) CSF HSV II (PCR) CSF HHV 6 (PCR) CSF L.monocytogenes PCR CSF N. meningitidis PCR CSF Parechovirus (PCR) CSF S. agalactiae (PCR) CSF S. pneumoniae (PCR) CSF VZV (PCR) Stl C. cayetanensis PCR Stool Rotavirus A PCR Stl Adenov F PCR Stool Astrovirus (PCR) Stool Campylobacter PCR Stool Cryptosporidium PCR Stl Sh Tox Pr E STEC PCR Stool E coli O157 PCR Stl Enterotoxigenic E PCR Stool EPEC (PCR) Stool EAEC (PCR) Stl E. histolytica PCR Stool Giardia Lamblia PCR Stl P. shigelloides PCR Stool Salmonella PCR Stool Sapovirus (PCR) Stl Shigella/EIEC PCR St Y.enterocolitica PCR Stool Vibrio (PCR) Stl Vibrio cholerae PCR Stl Norovirus GI/GII PCR Vancomycin Trough C. difficile Tox B Gene 04/25/22 04/25/22 04/25/22 00:36 02:40 04:50 MCV MCH MCHC RDW Plt Count MPV Absolute Nucleated RBC Nucleated RBC % (auto) Anion Gap Estim Creat Clear Calc Estimated GFR POC Glucose 216 H 190 H 205 H Random Glucose Fasting Glucose Calcium CSF Tube Number CSF Volume CSF Appearance CSF Color CSF WBC CSF RBC CSF Neutrophils CSF Lymphocytes CSF Monocytes % CSF Appearance (b) CSF Glucose CSF Total Protein CSF C.neoform/gat PCR CSF CMV DNA (PCR) CSF Enterovirus (PCR) CSF E. coli K1 (PCR) CSF H. influenzae (PCR) CSF HSV I (PCR) CSF HSV II (PCR) CSF HHV 6 (PCR) CSF L.monocytogenes PCR CSF N. meningitidis PCR CSF Parechovirus (PCR) CSF S. agalactiae (PCR) CSF S. pneumoniae (PCR) CSF VZV (PCR) Stl C. cayetanensis PCR Stool Rotavirus A PCR Stl Adenov F PCR Stool Astrovirus (PCR) Stool Campylobacter PCR Stool Cryptosporidium PCR Stl Sh Tox Pr E STEC PCR Stool E coli O157 PCR Stl Enterotoxigenic E PCR Stool EPEC (PCR) Stool EAEC (PCR) Stl E. histolytica PCR Stool Giardia Lamblia PCR Stl P. shigelloides PCR Stool Salmonella PCR Stool Sapovirus (PCR) Stl Shigella/EIEC PCR St Y.enterocolitica PCR Stool Vibrio (PCR) Stl Vibrio cholerae PCR Stl Norovirus GI/GII PCR Vancomycin Trough C. difficile Tox B Gene 04/25/22 04/25/22 04/25/22 06:10 06:10 06:10 MCV 82.0 MCH 27.3 MCHC 33.3 RDW 15.9 Plt Count 361 MPV 10.6 Absolute Nucleated RBC 0.000 Nucleated RBC % (auto) 0.0 Anion Gap 20 Estim Creat Clear Calc 67.7 Estimated GFR 60 POC Glucose Random Glucose Fasting Glucose 202 H Calcium 8.9 CSF Tube Number CSF Volume CSF Appearance CSF Color CSF WBC CSF RBC CSF Neutrophils CSF Lymphocytes CSF Monocytes % CSF Appearance (b) CSF Glucose CSF Total Protein CSF C.neoform/gat PCR CSF CMV DNA (PCR) CSF Enterovirus (PCR) CSF E. coli K1 (PCR) CSF H. influenzae (PCR) CSF HSV I (PCR) CSF HSV II (PCR) CSF HHV 6 (PCR) CSF L.monocytogenes PCR CSF N. meningitidis PCR CSF Parechovirus (PCR) CSF S. agalactiae (PCR) CSF S. pneumoniae (PCR) CSF VZV (PCR) Stl C. cayetanensis PCR Stool Rotavirus A PCR Stl Adenov F PCR Stool Astrovirus (PCR) Stool Campylobacter PCR Stool Cryptosporidium PCR Stl Sh Tox Pr E STEC PCR Stool E coli O157 PCR Stl Enterotoxigenic E PCR Stool EPEC (PCR) Stool EAEC (PCR) Stl E. histolytica PCR Stool Giardia Lamblia PCR Stl P. shigelloides PCR Stool Salmonella PCR Stool Sapovirus (PCR) Stl Shigella/EIEC PCR St Y.enterocolitica PCR Stool Vibrio (PCR) Stl Vibrio cholerae PCR Stl Norovirus GI/GII PCR Vancomycin Trough 11.2 C. difficile Tox B Gene 04/25/22 04/25/22 06:31 08:14 MCV MCH MCHC RDW Plt Count MPV Absolute Nucleated RBC Nucleated RBC % (auto) Anion Gap Estim Creat Clear Calc Estimated GFR POC Glucose 211 H 198 H Random Glucose Fasting Glucose Calcium CSF Tube Number CSF Volume CSF Appearance CSF Color CSF WBC CSF RBC CSF Neutrophils CSF Lymphocytes CSF Monocytes % CSF Appearance (b) CSF Glucose CSF Total Protein CSF C.neoform/gat PCR CSF CMV DNA (PCR) CSF Enterovirus (PCR) CSF E. coli K1 (PCR) CSF H. influenzae (PCR) CSF HSV I (PCR) CSF HSV II (PCR) CSF HHV 6 (PCR) CSF L.monocytogenes PCR CSF N. meningitidis PCR CSF Parechovirus (PCR) CSF S. agalactiae (PCR) CSF S. pneumoniae (PCR) CSF VZV (PCR) Stl C. cayetanensis PCR Stool Rotavirus A PCR Stl Adenov F PCR Stool Astrovirus (PCR) Stool Campylobacter PCR Stool Cryptosporidium PCR Stl Sh Tox Pr E STEC PCR Stool E coli O157 PCR Stl Enterotoxigenic E PCR Stool EPEC (PCR) Stool EAEC (PCR) Stl E. histolytica PCR Stool Giardia Lamblia PCR Stl P. shigelloides PCR Stool Salmonella PCR Stool Sapovirus (PCR) Stl Shigella/EIEC PCR St Y.enterocolitica PCR Stool Vibrio (PCR) Stl Vibrio cholerae PCR Stl Norovirus GI/GII PCR Vancomycin Trough C. difficile Tox B Gene Microbiology Microbiology Results: Microbiology 04/24/22 16:26 Gram Stain - Final Cerebrospinal Fluid CSF Examination - Final Fluid Description - Final CSF Culture - Preliminary No growth to date. 04/23/22 14:06 Blood Culture - Preliminary Blood - Venous No growth after 24 hours. 04/23/22 14:06 Blood Culture - Preliminary Blood - Venous Prelim: GPC Gram Stain only Assessment and Plan (1) Encephalopathy: Status: Acute Plan 57F PMH of bipolar disorder, diabetes, hypertension, IBS, peripheral neuropathy, polysubstance abuse, seizure disorder, who was discharged recently on 04/09 for UTI encephalopathy presented with ams sepsis with acute toxic metabolic encephalopathy CSF negative for meningoencephalitis, high protein only 1/2 blood cultures gpc empiric vanc, MRI no acute findings DM with mild DKA dka resolved continue basal bolus insulin hypertension lisinopril, hydralazine, prazosin history of recent stroke (03/2022) continue aspirin and statin bipolar disorder restart lower dose mood stabilizers opiate dependence addiction medicine consult once more awake hypernatremia change to 1/2ns, follow bmp dysphagia billet recorder eval DVT prophylaxis:? Lovenox Full code reason for continued hospitalization: acutely altered, bacteremia Time Spent With Patient Time: Total time managing care of this patient today ____ minutes. Quality Stroke Does the patient have a stroke diagnosis?: No VTE Prior VTE?: No VTE Risk Level:: Medical - moderate - high VTE Device Contraindication: Treatment Not Indicated VTE Drug Contraindication: N/A - Med Ordered
[2022-04-25] MEDS: Sodium Chloride 0.45 % 1,000 ML 100 ML IVCONT ×2 (10:50→22:02)
--- NOTE | 2022-04-25 11:41 | MHC.CM.PN ---
STILL ACUTE NO PLAN FOR DISCHARGE TODAY
--- NOTE | 2022-04-25 14:14 | MHC.SL.SWA ---
Addendum entered and electronically signed by Vale Shell MA, [facility] 04/27/22 14:48: D.S. Original Note: Addendum entered and electronically signed by KESHAV Encarnacion 04/25/22 16:07: SW Original Note: Speech Pathologist Impression: Oral Phase Dysphagia Risk of Aspiration Due to: Neurological Condition Dysphasia Diet Status: UPGRADE Liquid Consistency and Strategies for Safe Swallow: Liquid Intake Recommendation: Thin Liquid Intake Strategies: Small Sips Solid Food Consistency: Dietary Recommendations: Chopped/Advanced (NDD3) Additional Modifications to Solid Foods: Moisten food with sauce/gravy Oral Medication Intake: Whole with Liquid Please contact the pharmacy regarding appropriate crushable or liquid drug formulations that are available whenever modified delivery is recommended. Compensatory Strategies and Precautions to be Taken for Safe Swallow: Sitting Upright (90 deg) Small Bites and Sips Alternate Liquids/Solids Rate of Ingestion Change Avoid Specific Foods Supervision While Eating and Drinking for Safe Swallow: Total Supervision (1:1) Foods to Avoid: Mixed consistencies (e.g. cereal and milk, thin soups with pieces of veg/meat). Sticky foods. Hard solids. Swallowing Recommended Treatments: Compens. Strategy Educat. Recommendation for Speech: Outpatient Speech Therapy Inpatient Speech Therapy Comment: Recommend UPGRADE to THIN liquids, CHOPPED/ADVANCED (NDD3), pills whole in liquid/puree. Recommend full supervision for all PO d/t observed slow motor control/difficulty manipulating utensils/PO as well as confusion between food in front of her and the gauze/tape on her finger. Pt may require some assistance w/ setting up items on tray. Nursing on floor notified. RN, RD, MD notified via [employer]. [employer] to continue to follow. Captain Cannery Tender Clinican/Clinical Fellow: Yes: Radha Butler M.A., [facility] Supervisory Statement: I have reviewed and agree with the student/clinical fellow's documentation: Speech Language Pathologist:
[2022-04-25 14:30] LABS: Glucose, Whole Blood 307 mg/dL (60-115)
[2022-04-25] MEDS: HaloperidoL 1 MG TABLET PO ×3 (14:37→20:47)
[2022-04-25] MEDS: hydrALAZINE HCl 25 MG TABLET PO ×2 (14:38→20:49)
[2022-04-25 16:26] LABS: Glucose, Whole Blood 328 mg/dL (60-115)
--- NOTE | 2022-04-25 16:48 | PC.NURSE ---
At 1525 Pt had elevated BP of 193/84, at this time pt was trying to get out of bed, to use bedside commode. BP recheck was 144/76, pt resting comfortably at this time. Pt asymptomatic.
[2022-04-25 20:14] LABS: Glucose, Whole Blood 362 mg/dL (60-115)
[2022-04-25] MEDS: Insulin Glargine,Hum.rec.anlog 100 UNIT/ML 10 ML VIAL 15 UNIT SUBCUT (20:46)
[2022-04-25] MEDS: Enoxaparin Sodium 40 MG/0.4 ML SYRINGE SUBCUT (20:46)
[2022-04-25] MEDS: QUEtiapine Fumarate 100 MG TABLET PO (20:47)
[2022-04-25] MEDS: Atorvastatin Calcium 40 MG TABLET PO (20:47)
[2022-04-25] MEDS: Prazosin HCL 1 MG CAPSULE PO (20:47)
--- NOTE | 2022-04-26 02:35 | PC.NURSE ---
given scheduled meds at 21:00 but still agitated, take out all her clothings, frequently get up, reaching out something on the air, looking for her keys, and her villalba is not safe to walk. so reach out to nursing fountain supervisor NABEEL, she got her 1:1 sitter for safety at 23:00. she fall a sleep around 01:30.
[2022-04-26] MEDS: Acetaminophen 325 MG TABLET 650 MG PO ×3 (03:21→22:22)
[2022-04-26 03:27] VITALS: BP 126/58; PULSE 64; RESP 19; TEMP 36.3; O2SAT 95
[2022-04-26 06:33] LABS: Hematocrit 34.2 % (37.0-47.0); Hemoglobin 11.4 g/dl (12.0-16.0); Mean Corpuscular HGB Conc 33.3 g/dl (31.0-35.0); Mean Corpuscular Hemoglobin 27.5 pg (27.0-33.0); Mean Corpuscular Volume 82.4 fL (80.0-98.0); Mean Platelet Volume 10.6 fL (9.4-12.3); Platelet Count 231 X10*3/uL (160-400); Red Blood Count 4.15 X10*6/uL (4.20-5.50); Red Cell Distribution Width 15.9 % (11.0-16.0); White Blood Count 9.7 X10*3/uL (4.8-10.8)
[2022-04-26 06:49] LABS: Anion Gap 15 (12-20); Blood Urea Nitrogen 30 mg/dL (9-16); Calcium 8.4 mg/dL (8.4-10.2); Carbon Dioxide 20 mmol/L (22-29); Chloride 106 mmol/L (96-108); Creatinine Clr Calc Pharmacy 72.3; Estimated Glomerular Filt Rate > 60; Glucose Fasting 218 mg/dL (60-99); Potassium 3.1 mmol/L (3.3-5.1); Sodium 138 mmol/L (135-145)
[2022-04-26 07:34] LABS: Glucose, Whole Blood 371 mg/dL (60-115)
[2022-04-26 08:00] VITALS: BP 137/63; PULSE 68; RESP 18; TEMP 36.8; O2SAT 95
[2022-04-26] MEDS: Insulin Lispro 100 UNIT/ML 3 ML VIAL SUBCUT ×7 (08:24→22:21)
[2022-04-26] MEDS: hydrALAZINE HCl 25 MG TABLET PO ×3 (08:25→20:13)
[2022-04-26] MEDS: HaloperidoL 1 MG TABLET PO ×3 (08:25→20:13)
[2022-04-26] MEDS: lisinopriL 10 MG TABLET 30 MG PO (08:25)
[2022-04-26] MEDS: Aspirin Enteric Coated 81 MG TABLET.DR PO (08:26)
[2022-04-26] MEDS: Potassium Chloride ER 20 MEQ TAB.ER.PRT 40 MEQ PO (08:26)
[2022-04-26] MEDS: vancomycin HCL 750 MG in 0.9 % Sodium Chloride 250 ML 265 MG IV (08:26)
[2022-04-26] MEDS: 0.9 % Sodium Chloride Flush 3 ML SYRINGE IVFLUSH ×2 (08:26→15:01)
[2022-04-26] MEDS: Multivitamin TABLET 1 TAB PO (08:26)
--- NOTE | 2022-04-26 08:45 | P.PNIM_ITS ---
Subjective Subjective Date of Service: 04/26/22 Interval History: more responsive, following simple commands, no complaints Physical Exam 2 Vital Signs: Vital Signs: Last Vital Signs Temp 98.2 F 04/26/22 08:00 Pulse 68 04/26/22 08:00 Resp 18 04/26/22 08:00 BP 137/63 04/26/22 08:00 Pulse Ox 95 04/26/22 08:00 O2 Del Method 04/26/22 08:00 BMI result Body Mass Index 30.2 alert, answering more complex questions, appears closer to baseline Objective Data Active Medications Acetaminophen (Acetaminophen 325 Mg Tablet) 650 mg PO Q6H PRN PRN Reason: Pain, Mild (Pain Scale 1-3) Last Admin: 04/26/22 03:21 Dose: 650 mg Documented By: DIPESH Aspirin (Aspirin Enteric Coated 81 Mg Tablet.Dr) 81 mg PO DAILY [facility] Last Admin: 04/26/22 08:26 Dose: 81 mg Documented By: ANNA Atorvastatin Calcium (Atorvastatin Calcium 40 Mg Tablet) 40 mg PO BEDTIME [facility] Last Admin: 04/25/22 20:47 Dose: 40 mg Documented By: DIPESH Dextrose (Dextrose 50 % 25 Gm/50 Ml Syringe) 25 gm IVPUSH Q30M PRN PRN Reason: Nursing Actions in Insulin Infusion Protocol Dextrose (Dextrose 50 % 25 Gm/50 Ml Syringe) 25 gm IVPUSH Q15M PRN; Protocol PRN Reason: per Hypoglycemia Standing Ord. Docusate Sodium (Docusate Sodium 100 Mg Capsule) 100 mg PO DAILY PRN PRN Reason: Constipation Enoxaparin Sodium (Enoxaparin Sodium 40 Mg/0.4 Ml Syringe) 40 mg SUBCUT Q24H [facility] Last Admin: 04/25/22 20:46 Dose: 40 mg Documented By: DIPESH Glucose (Glucose Gel 15 Gm Gel..Gram.) 15 gm PO Q15M PRN; Protocol PRN Reason: per Hypoglycemia Standing Ord. Haloperidol (Haloperidol 1 Mg Tablet) 1 mg PO TID [facility] Last Admin: 04/26/22 08:25 Dose: 1 mg Documented By: ANNA Hydralazine HCl (Hydralazine Hcl 25 Mg Tablet) 25 mg PO TID [facility]; Protocol Last Admin: 04/26/22 08:25 Dose: 25 mg Documented By: NANA Sodium Chloride (Sodium Chloride 0.45 %) 1,000 mls @ 100 mls/hr IVCONT .Q10H [facility] Last Infusion: 04/26/22 08:34 Dose: 100 mls/hr Documented By: ANNA Vancomycin HCl 750 mg/ Sodium (Chloride) 265 mls @ 265 mls/hr IV Q12H [facility] Last Admin: 04/26/22 08:26 Dose: 265 mls/hr Documented By: ANNA Insulin Glargine (Insulin Glargine,Hum.Rec.Anlog 100 Unit/Ml 10 Ml Vial) 15 unit SUBCUT BEDTIME [facility] Last Admin: 04/25/22 20:46 Dose: 15 unit Documented By: DIPESH Insulin Human Lispro (Insulin Lispro 100 Unit/Ml 3 Ml Vial) 0 unit SUBCUT QIDACHS [facility]; Protocol Last Admin: 04/26/22 08:24 Dose: 10 unit Documented By: ANNA Lisinopril (Lisinopril 10 Mg Tablet) 30 mg PO DAILY [facility]; Protocol Last Admin: 04/26/22 08:25 Dose: 30 mg Documented By: ANNA Multivitamins/Vitamin C (Multivitamin Tablet) 1 tab PO DAILY [facility] Last Admin: 04/26/22 08:26 Dose: 1 tab Documented By: ANNA Ondansetron HCl (Ondansetron Hcl 4 Mg/2 Ml Vial) 4 mg IVPUSH Q8H PRN PRN Reason: Nausea and Vomiting Pharmacy Consult (Consult Rx Perform Med Rec) 1 each MISCELLANE ONCE PRN PRN Reason: Consult order Pharmacy Consult (Consult Rx Vancomycin Dosing) 1 each MISCELLANE DAILY PRN PRN Reason: Consult order Prazosin HCl (Prazosin Hcl 1 Mg Capsule) 1 mg PO BEDTIME [facility]; Protocol Last Admin: 04/25/22 20:47 Dose: 1 mg Documented By: DIPESH Quetiapine Fumarate (Quetiapine Fumarate 100 Mg Tablet) 100 mg PO BEDTIME [facility] Last Admin: 04/25/22 20:47 Dose: 100 mg Documented By: DIPESH Sodium Chloride (0.9 % Sodium Chloride Flush 3 Ml Syringe) 3 ml IVFLUSH QSHIFT [facility] Last Admin: 04/26/22 08:26 Dose: 3 ml Documented By: ANNA Labs 04/26/22 05:41 04/26/22 05:41 Labs: Laboratory Results - last 24 hr 04/25/22 04/25/22 04/25/22 14:27 16:22 19:30 MCV MCH MCHC RDW Plt Count MPV Absolute Nucleated RBC Nucleated RBC % (auto) Anion Gap Estim Creat Clear Calc Estimated GFR POC Glucose 307 H 328 H 362 H* Fasting Glucose Calcium 04/26/22 04/26/22 04/26/22 05:41 05:41 07:30 MCV 82.4 MCH 27.5 MCHC 33.3 RDW 15.9 Plt Count 231 D MPV 10.6 Absolute Nucleated RBC 0.000 Nucleated RBC % (auto) 0.0 Anion Gap 15 Estim Creat Clear Calc 72.3 Estimated GFR > 60 POC Glucose 371 H* Fasting Glucose 218 H Calcium 8.4 Microbiology Microbiology Results: Microbiology 04/25/22 06:10 Blood Culture - Preliminary Blood - Venous No growth after 24 hours. 04/25/22 06:10 Blood Culture - Preliminary Blood - Venous No growth after 24 hours. 04/24/22 16:26 Gram Stain - Final Cerebrospinal Fluid CSF Examination - Final Fluid Description - Final CSF Culture - Preliminary No growth after 1 day 04/23/22 14:06 Blood Culture - Preliminary Blood - Venous No growth after 48 hours. 04/23/22 14:06 Blood Culture - Preliminary Blood - Venous Gram positive cocci Assessment and Plan (1) Encephalopathy: Status: Acute Plan 57F PMH of bipolar disorder, diabetes, hypertension, IBS, peripheral neuropathy, polysubstance abuse, seizure disorder, who was discharged recently on 04/09 for UTI encephalopathy presented with ams sepsis vs sirs with acute toxic metabolic encephalopathy CSF negative for meningoencephalitis, high protein only 1/2 blood cultures gpc empiric vanc MRI no acute findings resolving DM with mild DKA dka resolved continue basal bolus insulin hypertension lisinopril, hydralazine, prazosin history of recent stroke (03/2022) continue aspirin and statin bipolar disorder restart lower dose mood stabilizers opiate dependence stable hypernatremia resolved dysphagia vp platforms appreciated - NDD3 solids, thin liquids DVT prophylaxis:? Lovenox Full code reason for continued hospitalization: bacteremia Time Spent With Patient Time: Total time managing care of this patient today ____ minutes. Quality Stroke Does the patient have a stroke diagnosis?: No VTE Prior VTE?: No VTE Risk Level:: Medical - moderate - high VTE Device Contraindication: Treatment Not Indicated VTE Drug Contraindication: N/A - Med Ordered
[2022-04-26] MEDS: Insulin Glargine,Hum.rec.anlog 100 UNIT/ML 10 ML VIAL 15 UNIT SUBCUT ×2 (10:31→20:14)
[2022-04-26 11:32] LABS: Glucose, Whole Blood 234 mg/dL (60-115)
[2022-04-26] MEDS: Sodium Chloride 0.45 % 1,000 ML 100 ML IVCONT ×2 (13:50→21:57)
[2022-04-26 15:10] VITALS: BP 143/65; PULSE 69; RESP 18; TEMP 36.9; O2SAT 95
[2022-04-26 16:22] LABS: Glucose, Whole Blood 297 mg/dL (60-115)
[2022-04-26 19:24] VITALS: BP 159/72; PULSE 69; RESP 18; TEMP 36.7; O2SAT 99
[2022-04-26] MEDS: QUEtiapine Fumarate 100 MG TABLET PO (20:13)
[2022-04-26] MEDS: Atorvastatin Calcium 40 MG TABLET PO (20:13)
[2022-04-26] MEDS: Prazosin HCL 1 MG CAPSULE PO (20:13)
[2022-04-26] MEDS: Enoxaparin Sodium 40 MG/0.4 ML SYRINGE SUBCUT (20:13)
[2022-04-26 20:32] LABS: Glucose, Whole Blood 276 mg/dL (60-115)
[2022-04-27] VITALS: BP 133/61; PULSE 73; RESP 18; TEMP 36.6; O2SAT 97
[2022-04-27] MEDS: Acetaminophen 325 MG TABLET 650 MG PO ×3 (03:41→17:13)
[2022-04-27 04:00] VITALS: BP 164/70; PULSE 69; RESP 18; TEMP 36; O2SAT 97
[2022-04-27 06:08] LABS: Hematocrit 33.4 % (37.0-47.0); Mean Corpuscular HGB Conc 32.9 g/dl (31.0-35.0); Mean Corpuscular Hemoglobin 27.8 pg (27.0-33.0); Mean Corpuscular Volume 84.6 fL (80.0-98.0); Mean Platelet Volume 11.5 fL (9.4-12.3); Platelet Count 182 X10*3/uL (160-400); Red Blood Count 3.95 X10*6/uL (4.20-5.50); Red Cell Distribution Width 15.4 % (11.0-16.0); White Blood Count 7.2 X10*3/uL (4.8-10.8)
[2022-04-27 06:24] LABS: Anion Gap 17 (12-20); Blood Urea Nitrogen 22 mg/dL (9-16); Calcium 8.5 mg/dL (8.4-10.2); Carbon Dioxide 21 mmol/L (22-29); Chloride 107 mmol/L (96-108); Creatinine Clr Calc Pharmacy 73.9; Estimated Glomerular Filt Rate > 60; Glucose Fasting 315 mg/dL (60-99); Magnesium 1.5 mg/dL (1.6-2.6); Potassium 3.5 mmol/L (3.3-5.1); Sodium 141 mmol/L (135-145)
[2022-04-27 07:05] VITALS: BP 175/77; PULSE 76; RESP 17; TEMP 36.2; O2SAT 97
[2022-04-27 07:38] LABS: Glucose, Whole Blood 312 mg/dL (60-115)
[2022-04-27] MEDS: Insulin Lispro 100 UNIT/ML 3 ML VIAL SUBCUT ×8 (08:01→21:26)
[2022-04-27] MEDS: lisinopriL 10 MG TABLET 30 MG PO (08:01)
[2022-04-27] MEDS: Multivitamin TABLET 1 TAB PO (08:01)
[2022-04-27] MEDS: Aspirin Enteric Coated 81 MG TABLET.DR PO (08:01)
[2022-04-27] MEDS: hydrALAZINE HCl 25 MG TABLET PO ×3 (08:01→21:24)
[2022-04-27] MEDS: HaloperidoL 1 MG TABLET PO ×3 (08:01→21:24)
[2022-04-27] MEDS: Insulin Glargine,Hum.rec.anlog 100 UNIT/ML 10 ML VIAL 15 UNIT SUBCUT ×2 (08:02→21:29)
[2022-04-27] MEDS: Sodium Chloride 0.45 % 1,000 ML 100 ML IVCONT (08:03)
[2022-04-27] MEDS: 0.9 % Sodium Chloride Flush 3 ML SYRINGE IVFLUSH ×3 (08:03→21:32)
--- NOTE | 2022-04-27 10:48 | MHC.CM.PN ---
PER ROUNDS,, PT NOT YET MEDICALLY CLEAR PT STILL CONFUSED DCP TBD PENDING PT PARTICIPATION PT LIKELY TO RETURN HOME VIA SHUTTLE TRANSPORT
[2022-04-27 11:00] VITALS: BP 176/77; PULSE 65; RESP 17; TEMP 36.7; O2SAT 97
[2022-04-27 11:31] LABS: Glucose, Whole Blood 277 mg/dL (60-115)
--- NOTE | 2022-04-27 12:07 | MHC.SL.SWA ---
Speech Pathologist Impression: Oral phase dysphagia Risk of Aspiration Due to: Neurological Condition Dysphasia Diet Status: No Change Liquid Consistency and Strategies for Safe Swallow: Liquid Intake Recommendation: Thin Liquid Intake Strategies: Small Sips Solid Food Consistency: Dietary Recommendations: Chopped/Advanced (NDD3) Additional Modifications to Solid Foods: Recommend continue on CHOPPED/ADVANCED (NDD3) diet d/t oral phase dysphagia with THIN liquids and pills WHOLE in LIQUID. Further ST intervention no longer warranted at this level of care as pt appears to be on safest and least restrictive diet at this time. Please re-refer with any changes or if STARTING GATE [employer]IVER can be of further assistance. Oral Medication Intake: Whole with Liquid Please contact the pharmacy regarding appropriate crushable or liquid drug formulations that are available whenever modified delivery is recommended. Compensatory Strategies and Precautions to be Taken for Safe Swallow: Sitting Upright (90 deg) Small Bites and Sips Alternate Liquids/Solids Avoid Specific Foods Supervision While Eating and Drinking for Safe Swallow: Intermittent Supervision Foods to Avoid: Mixed consistencies (e.g. cereal and milk, thin soups with pieces of veg/meat). Sticky foods. Hard solids. Swallowing Recommended Treatments: Compens. Strategy Educat. Recommendation for Speech: D/C Contract Recruiter Clinican/Clinical Fellow: No Supervisory Statement: I have reviewed and agree with the student/clinical fellow's documentation: N/A Speech Language Pathologist: Vael Shell M.A., [facility]
[2022-04-27 15:00] VITALS: BP 140/81; PULSE 65; RESP 18; TEMP 37.1; O2SAT 97
--- NOTE | 2022-04-27 15:05 | HO.PM.IMPN ---
Subjective Subjective Date of Service: 04/27/22 Interval History: seen and examined this morning follow up for encephalopathy awakens to verbal stimuli, remains confused. unreliable historian Neurologic Neurologic: Reports confusion Psychiatric Psychiatric: Reports confusion Physical Exam Vital Signs: Vital Signs: Last Vital Signs Temp 98.0 F 04/27/22 11:00 Pulse 65 04/27/22 11:00 Resp 17 04/27/22 11:00 BP 176/77 H 04/27/22 11:00 Pulse Ox 97 04/27/22 11:00 O2 Del Method 04/27/22 11:00 BMI result Body Mass Index 30.2 Const: General: cooperative, comfortable, no acute distress, alert, awake and confusion Nutritional Appearance: obese Orientation/consciousness: confusion Resp: Effort & Inspection: normal respiratory effort and able to speak in complete sentences Cardio: Rate: regular rate GI: Inspection: Yes obesity Palpation (GI): Soft to palpation Neuro: Other: grossly nonfocal General: confusion Extrem: General: Yes no pedal edema Objective Data Active Medications Acetaminophen (Acetaminophen 325 Mg Tablet) 650 mg PO Q6H PRN PRN Reason: Pain, Mild (Pain Scale 1-3) Last Admin: 04/27/22 12:06 Dose: 650 mg Documented By: ANNA Aspirin (Aspirin Enteric Coated 81 Mg Tablet.) 81 mg PO DAILY [facility] Last Admin: 04/27/22 08:01 Dose: 81 mg Documented By: ANNA Atorvastatin Calcium (Atorvastatin Calcium 40 Mg Tablet) 40 mg PO BEDTIME [facility] Last Admin: 04/26/22 20:13 Dose: 40 mg Documented By: DIPESH Dextrose (Dextrose 50 % 25 Gm/50 Ml Syringe) 25 gm IVPUSH Q30M PRN PRN Reason: Nursing Actions in Insulin Infusion Protocol Dextrose (Dextrose 50 % 25 Gm/50 Ml Syringe) 25 gm IVPUSH Q15M PRN; Protocol PRN Reason: per Hypoglycemia Standing Ord. Docusate Sodium (Docusate Sodium 100 Mg Capsule) 100 mg PO DAILY PRN PRN Reason: Constipation Enoxaparin Sodium (Enoxaparin Sodium 40 Mg/0.4 Ml Syringe) 40 mg SUBCUT Q24H [facility] Last Admin: 04/26/22 20:13 Dose: 40 mg Documented By: DIPESH Glucose (Glucose Gel 15 Gm Gel..Gram.) 15 gm PO Q15M PRN; Protocol PRN Reason: per Hypoglycemia Standing Ord. Haloperidol (Haloperidol 1 Mg Tablet) 1 mg PO TID [facility] Last Admin: 04/27/22 08:01 Dose: 1 mg Documented By: ANNA Hydralazine HCl (Hydralazine Hcl 25 Mg Tablet) 25 mg PO TID [facility]; Protocol Last Admin: 04/27/22 08:01 Dose: 25 mg Documented By: ANNA Sodium Chloride (Sodium Chloride 0.45 %) 1,000 mls @ 100 mls/hr IVCONT .Q10H [facility] Last Admin: 04/27/22 08:03 Dose: 100 mls/hr Documented By: ANNA Insulin Glargine (Insulin Glargine,Hum.Rec.Anlog 100 Unit/Ml 10 Ml Vial) 15 unit SUBCUT BID [facility] Last Admin: 04/27/22 08:02 Dose: 15 unit Documented By: ANNA Insulin Human Lispro (Insulin Lispro 100 Unit/Ml 3 Ml Vial) 0 unit SUBCUT QIDACHS [facility]; Protocol Last Admin: 04/27/22 12:08 Dose: 6 unit Documented By: ANNA Insulin Human Lispro (Insulin Lispro 100 Unit/Ml 3 Ml Vial) 5 unit SUBCUT QIDACHS [facility] Last Admin: 04/27/22 12:07 Dose: 5 unit Documented By: ANNA Lisinopril (Lisinopril 10 Mg Tablet) 30 mg PO DAILY [facility]; Protocol Last Admin: 04/27/22 08:01 Dose: 30 mg Documented By: ANNA Multivitamins/Vitamin C (Multivitamin Tablet) 1 tab PO DAILY [facility] Last Admin: 04/27/22 08:01 Dose: 1 tab Documented By: ANNA Ondansetron HCl (Ondansetron Hcl 4 Mg/2 Ml Vial) 4 mg IVPUSH Q8H PRN PRN Reason: Nausea and Vomiting Pharmacy Consult (Consult Rx Perform Med Rec) 1 each MISCELLANE ONCE PRN PRN Reason: Consult order Prazosin HCl (Prazosin Hcl 1 Mg Capsule) 1 mg PO BEDTIME [facility]; Protocol Last Admin: 04/26/22 20:13 Dose: 1 mg Documented By: DIPESH Quetiapine Fumarate (Quetiapine Fumarate 100 Mg Tablet) 100 mg PO BEDTIME [facility] Last Admin: 04/26/22 20:13 Dose: 100 mg Documented By: DIPESH Sodium Chloride (0.9 % Sodium Chloride Flush 3 Ml Syringe) 3 ml IVFLUSH QSHIFT [facility] Last Admin: 04/27/22 08:03 Dose: 3 ml Documented By: ANNA Labs 04/27/22 05:34 04/27/22 05:34 Labs: Laboratory Results - last 24 hr 04/26/22 04/26/22 04/27/22 16:18 19:43 05:34 MCV 84.6 MCH 27.8 MCHC 32.9 RDW 15.4 Plt Count 182 MPV 11.5 Absolute Nucleated RBC 0.000 Nucleated RBC % (auto) 0.0 Anion Gap Estim Creat Clear Calc Estimated GFR POC Glucose 297 H 276 H Fasting Glucose Calcium Magnesium 04/27/22 04/27/22 04/27/22 05:34 07:34 11:26 MCV MCH MCHC RDW Plt Count MPV Absolute Nucleated RBC Nucleated RBC % (auto) Anion Gap 17 Estim Creat Clear Calc 73.9 Estimated GFR > 60 POC Glucose 312 H 277 H Fasting Glucose 315 H Calcium 8.5 Magnesium 1.5 L Microbiology Microbiology Results: Microbiology 04/25/22 06:10 Blood Culture - Preliminary Blood - Venous No growth after 48 hours. 04/25/22 06:10 Blood Culture - Preliminary Blood - Venous No growth after 48 hours. 04/24/22 16:26 Gram Stain - Final Cerebrospinal Fluid CSF Examination - Final Fluid Description - Final CSF Culture - Preliminary No growth after 2 days 04/23/22 14:06 Blood Culture - Final Blood - Venous Coag negative Staphylococcus Coag negative Staphylococcus#2 Assessment and Plan (1) Encephalopathy: Status: Acute Plan 57F PMH of bipolar disorder, diabetes, hypertension, IBS, peripheral neuropathy, polysubstance abuse, seizure disorder, who was discharged recently on 04/09 for UTI encephalopathy presented with ams sepsis vs sirs with acute toxic metabolic encephalopathy CSF negative for meningoencephalitis, high protein only 1/2 blood cultures coag neg staph MRI no acute findings resolving Hypomagnesemia Replace Follow-up hypokalemia improved DM with mild DKA dka resolved continue basal bolus insulin hypertension lisinopril, hydralazine, prazosin history of recent stroke (03/2022) continue aspirin and statin bipolar disorder restart lower dose mood stabilizers opiate dependence stable hypernatremia resolved dysphagia derrick car operator appreciated - NDD3 solids, thin liquids DVT prophylaxis:? Lovenox Full code attending - dr. felix reason for continued hospitalization: encephalopathy Time Spent With Patient Time: Total time managing care of this patient today ____ minutes. Quality Stroke Does the patient have a stroke diagnosis?: No VTE Prior VTE?: No VTE Risk Level:: Medical - moderate - high VTE Device Contraindication: Treatment Not Indicated VTE Drug Contraindication: N/A - Med Ordered
[2022-04-27] MEDS: Magnesium Sulfate/H2O 2 GM/50 ML PIGGYBACK IV (16:22)
[2022-04-27 16:46] LABS: Glucose, Whole Blood 229 mg/dL (60-115)
[2022-04-27 19:00] VITALS: BP 168/77; PULSE 73; RESP 18; TEMP 36.6; O2SAT 98
[2022-04-27 20:49] LABS: Glucose, Whole Blood 385 mg/dL (60-115)
[2022-04-27] MEDS: QUEtiapine Fumarate 100 MG TABLET PO (21:24)
[2022-04-27] MEDS: Prazosin HCL 1 MG CAPSULE PO (21:24)
[2022-04-27] MEDS: Atorvastatin Calcium 40 MG TABLET PO (21:24)
[2022-04-27] MEDS: Enoxaparin Sodium 40 MG/0.4 ML SYRINGE SUBCUT (21:24)
[2022-04-28 03:00] VITALS: BP 157/70; PULSE 66; RESP 18; TEMP 36.2; O2SAT 98
[2022-04-28] MEDS: Acetaminophen 325 MG TABLET 650 MG PO ×3 (03:54→15:32)
--- NOTE | 2022-04-28 04:29 | PC.NURSE ---
Patient restless and frequently getting oob beginning of the shift. Fell asleep on her own before stat Olanzapine was verified, med not giving. MD notified of elevated blood sugar. Video monitor in use for safety.
[2022-04-28 07:22] VITALS: BP 184/84; PULSE 73; RESP 18; TEMP 36.6; O2SAT 98
[2022-04-28] MEDS: Insulin Lispro 100 UNIT/ML 3 ML VIAL SUBCUT ×7 (07:51→16:42)
[2022-04-28] MEDS: HaloperidoL 1 MG TABLET PO ×2 (07:52→13:51)
[2022-04-28] MEDS: hydrALAZINE HCl 25 MG TABLET PO ×2 (07:52→13:51)
[2022-04-28] MEDS: Insulin Glargine,Hum.rec.anlog 100 UNIT/ML 10 ML VIAL 15 UNIT SUBCUT (07:52)
[2022-04-28] MEDS: Multivitamin TABLET 1 TAB PO (07:52)
[2022-04-28] MEDS: lisinopriL 10 MG TABLET 30 MG PO (07:52)
[2022-04-28] MEDS: Aspirin Enteric Coated 81 MG TABLET.DR PO (07:53)
[2022-04-28 07:55] LABS: Glucose, Whole Blood 240 mg/dL (60-115)
[2022-04-28] MEDS: Magnesium Oxide 400 MG TABLET PO (09:44)
[2022-04-28] MEDS: 0.9 % Sodium Chloride Flush 3 ML SYRINGE IVFLUSH (09:50)
--- NOTE | 2022-04-28 10:20 | HO.PM.IMPN ---
Subjective Subjective Date of Service: 04/28/22 Interval History: seen and examined this morning follow up for encephalopathy awakens to verbal stimuli, remains confused. unreliable historian Neurologic Neurologic: Reports confusion Psychiatric Psychiatric: Reports confusion Physical Exam Vital Signs: Vital Signs: Last Vital Signs Temp 98 F 04/28/22 07:22 Pulse 73 04/28/22 07:22 Resp 18 04/28/22 07:22 BP 184/84 H 04/28/22 07:22 Pulse Ox 98 04/28/22 07:22 O2 Del Method 04/28/22 07:22 BMI result Body Mass Index 30.2 Const: General: confusion Nutritional Appearance: obese Orientation/consciousness: confusion Resp: Effort & Inspection: normal respiratory effort and able to speak in complete sentences Cardio: Rate: regular rate GI: Inspection: Yes obesity Palpation (GI): Soft to palpation Neuro: Other: grossly nonfocal General: confusion Extrem: General: Yes no pedal edema Objective Data Active Medications Acetaminophen (Acetaminophen 325 Mg Tablet) 650 mg PO Q6H PRN PRN Reason: Pain, Mild (Pain Scale 1-3) Last Admin: 04/28/22 09:46 Dose: 650 mg Documented By: CHARLENE Aspirin (Aspirin Enteric Coated 81 Mg Tablet.) 81 mg PO DAILY [facility] Last Admin: 04/28/22 07:53 Dose: 81 mg Documented By: CHARLENE Atorvastatin Calcium (Atorvastatin Calcium 40 Mg Tablet) 40 mg PO BEDTIME [facility] Last Admin: 04/27/22 21:24 Dose: 40 mg Documented By: ABIMBOLA Dextrose (Dextrose 50 % 25 Gm/50 Ml Syringe) 25 gm IVPUSH Q30M PRN PRN Reason: Nursing Actions in Insulin Infusion Protocol Dextrose (Dextrose 50 % 25 Gm/50 Ml Syringe) 25 gm IVPUSH Q15M PRN; Protocol PRN Reason: per Hypoglycemia Standing Ord. Docusate Sodium (Docusate Sodium 100 Mg Capsule) 100 mg PO DAILY PRN PRN Reason: Constipation Enoxaparin Sodium (Enoxaparin Sodium 40 Mg/0.4 Ml Syringe) 40 mg SUBCUT Q24H [facility] Last Admin: 04/27/22 21:24 Dose: 40 mg Documented By: ABIBMOLA Glucose (Glucose Gel 15 Gm Gel..Gram.) 15 gm PO Q15M PRN; Protocol PRN Reason: per Hypoglycemia Standing Ord. Haloperidol (Haloperidol 1 Mg Tablet) 1 mg PO TID [facility] Last Admin: 04/28/22 07:52 Dose: 1 mg Documented By: CHARLENE Hydralazine HCl (Hydralazine Hcl 25 Mg Tablet) 25 mg PO TID [facility]; Protocol Last Admin: 04/28/22 07:52 Dose: 25 mg Documented By: CHARLENE Insulin Glargine (Insulin Glargine,Hum.Rec.Anlog 100 Unit/Ml 10 Ml Vial) 15 unit SUBCUT BID [facility] Last Admin: 04/28/22 07:52 Dose: 15 unit Documented By: CHARLENE Insulin Human Lispro (Insulin Lispro 100 Unit/Ml 3 Ml Vial) 0 unit SUBCUT QIDACHS [facility]; Protocol Last Admin: 04/28/22 07:51 Dose: 4 unit Documented By: CHARLENE Insulin Human Lispro (Insulin Lispro 100 Unit/Ml 3 Ml Vial) 5 unit SUBCUT QIDACHS [facility] Last Admin: 04/28/22 07:51 Dose: 5 unit Documented By: CHARLENE Lisinopril (Lisinopril 10 Mg Tablet) 30 mg PO DAILY [facility]; Protocol Last Admin: 04/28/22 07:52 Dose: 30 mg Documented By: CHARLENE Magnesium Oxide (Magnesium Oxide 400 Mg Tablet) 400 mg PO BIDPC [facility] Last Admin: 04/28/22 09:44 Dose: 400 mg Documented By: CHARLENE Multivitamins/Vitamin C (Multivitamin Tablet) 1 tab PO DAILY [facility] Last Admin: 04/28/22 07:52 Dose: 1 tab Documented By: CHARLENE Ondansetron HCl (Ondansetron Hcl 4 Mg/2 Ml Vial) 4 mg IVPUSH Q8H PRN PRN Reason: Nausea and Vomiting Pharmacy Consult (Consult Rx Perform Med Rec) 1 each MISCELLANE ONCE PRN PRN Reason: Consult order Prazosin HCl (Prazosin Hcl 1 Mg Capsule) 1 mg PO BEDTIME [facility]; Protocol Last Admin: 04/27/22 21:24 Dose: 1 mg Documented By: ABIMBOLA Quetiapine Fumarate (Quetiapine Fumarate 100 Mg Tablet) 100 mg PO BEDTIME [facility] Last Admin: 04/27/22 21:24 Dose: 100 mg Documented By: HO.COBBOE Sodium Chloride (0.9 % Sodium Chloride Flush 3 Ml Syringe) 3 ml IVFLUSH QSHIFT [facility] Last Admin: 04/28/22 09:50 Dose: 3 ml Documented By: CHARLENE Labs 04/27/22 05:34 04/27/22 05:34 Labs: Laboratory Results - last 24 hr 04/27/22 04/27/22 04/27/22 11:26 16:39 20:46 POC Glucose 277 H 229 H 385 H* 04/28/22 07:19 POC Glucose 240 H Microbiology Microbiology Results: Microbiology 04/24/22 16:26 Gram Stain - Final Cerebrospinal Fluid CSF Examination - Final Fluid Description - Final CSF Culture - Final No growth after 3 days. 04/25/22 06:10 Blood Culture - Preliminary Blood - Venous No growth after 48 hours. 04/25/22 06:10 Blood Culture - Preliminary Blood - Venous No growth after 48 hours. Assessment and Plan (1) Encephalopathy: Status: Acute Plan 57F PMH of bipolar disorder, diabetes, hypertension, IBS, peripheral neuropathy, polysubstance abuse, seizure disorder, who was discharged recently on 04/09 for UTI encephalopathy presented with ams sepsis vs sirs with acute toxic metabolic encephalopathy CSF negative for meningoencephalitis, high protein only 1/2 blood cultures coag neg staph - contaminant - off vanc MRI no acute findings resolving Hypomagnesemia Replace Follow-up hypokalemia improved DM with mild DKA dka resolved continue basal bolus insulin hypertension lisinopril, hydralazine, prazosin history of recent stroke (03/2022) continue aspirin and statin bipolar disorder restarted lower dose mood stabilizers opiate dependence stable hypernatremia resolved dysphagia cash person appreciated - NDD3 solids, thin liquids DVT prophylaxis:? Lovenox Full code reason for continued hospitalization: safe dispo Time Spent With Patient Time: Total time managing care of this patient today ____ minutes. Quality Stroke Does the patient have a stroke diagnosis?: No VTE Prior VTE?: No VTE Risk Level:: Medical - moderate - high VTE Device Contraindication: Treatment Not Indicated VTE Drug Contraindication: N/A - Med Ordered
[2022-04-28 11:00] VITALS: RESP 20
[2022-04-28 11:34] LABS: Glucose, Whole Blood 440 mg/dL (60-115)
[2022-04-28 13:40] LABS: Glucose, Whole Blood 229 mg/dL (60-115)
--- NOTE | 2022-04-28 13:59 | P.DS_ITS ---
DS: Providers Provider Date of Service: 04/28/22 Date of admission: 04/23/22 19:40 Primary care physician: Bri Milligan CNP Consults: 04/23/22 19:58 Consult to Neurology Routine Consulting Provider: [facility] Reason for consultation: encephalopathy, concern for meningitis 04/23/22 23:14 Consult to Infectious Diseases Routine Consulting Provider: Linda Celis Reason for consultation: ?meningitis DS: Diagnosis Discharge Diagnosis (1) Encephalopathy: Status: Acute DS: Summary Hospital Course Hospital Course: from initial hpi: 57-year-old female with past medical history of asthma, bipolar disorder, diabetes, hypertension, IBS, peripheral neuropathy, polysubstance abuse, seizure disorder, who was discharged recently on 04/09 for UTI encephalopathy presented to the ED via EMS after being found by her founder president and ceo awake but unresponsive and unable to follow commands with last known well time 2-3 days ago.? On arrival, patient disheveled appearing and appears to have been urinating and defecating on herself for several days.? She is quite encephalopathic, unable to follow commands or provide history, responsive only to tactile stimuli on my exam.? On arrival, patient febrile to 101.6, tachycardic to 101, vitals otherwise normal.? Leukocytosis of 18.7, neutrophils 83.2%.? Renal function normal, electrolyte levels normal.? Glucose 338.? UA without evidence of UTI, but with significant glucose and 3+ protein urine drug screen positive for fentanyl.? Negative for COVID-19, influenza.? Chest x-ray without any acute findings.? 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 No significant stenosis in major arteries or large vessel occlusions.? Given fever of unknown origin, there is suspicion for bacterial meningitis.? Patient to be admitted for acute toxic metabolic encephalopathy with possible bacterial meningitis. hospital course: Patient was admitted for [facility] with acute toxic metabolic encephalopathy. She underwent lumbar puncture which was negative for meningeal encephalitis, only abnormality was high protein. Her broad-spectrum antibiotics were discontinued as blood cultures grew coag-negative Staph likely contaminant. MRI was unremarkable. Encephalopathy resolved and patient had no recurrence of fevers. For hypomagnesemia she was given supplement. For burglary Shantal she she was given potassium supplement. For diabetes this was complicated by mild diabetic ketoacidosis which resolved with insulin. For hypertension she was continued on lisinopril, hydralazine, prazosin. For recent stroke she was continued on aspirin statin. For bipolar disorder she was continued on mood stabilizers. For hypernatremia this resolved with free fluids. For dysphagia she was seen by speech recommended ndd3 solids and thin liquids. Patient was seen by Physical therapy and recommended home with services. Time Spent with Patient Time attestation: Total time managing care of this patient today ____ minutes. Discharge coordination time: Greater than 30 minutes Quality: Safe Use of Opioids Does Pt have an Active Cancer Diagnosis on the Problem List?: No Quality: Stroke Does the patient have a stroke diagnosis?: No Physical Exam Vital Signs: Vital Signs: Last Vital Signs Temp 98 F 04/28/22 07:22 Pulse 73 04/28/22 07:22 Resp 18 04/28/22 07:22 BP 184/84 H 04/28/22 07:22 Pulse Ox 98 04/28/22 07:22 O2 Del Method 04/28/22 07:22 BMI result Body Mass Index 30.2 no distress neuro intact, alert oriented, fluent speech DS: Data Data Completed and Pending Completed studies during hospitalization [Text1]: Procedures Detoxification Services for Substance Abuse Treatment (07/15/21) Introduction of Vasopressor into Peripheral Vein, Percutaneous Approach (07/15/21) Labs on day of discharge: Laboratory Results - last 24 hr 04/27/22 04/27/22 04/28/22 16:39 20:46 07:19 POC Glucose 229 H 385 H* 240 H 04/28/22 04/28/22 11:24 13:36 POC Glucose 440 H* 229 H Preliminary micro results at discharge 04/25/22 06:10 Blood Culture - Preliminary Blood - Venous No growth after 48 hours. 04/25/22 06:10 Blood Culture - Preliminary Blood - Venous No growth after 48 hours. 04/23/22 14:06 Blood Culture - Preliminary Blood - Venous No growth after 48 hours. Discharge Plan Discharge Anticipated Discharge Date/Time: 04/28/22 13:57 Patient Disposition: Home Health Service Discharge Diagnosis: encephaloapthy Referrals: Bri Milligan CNP [Primary Care Provider] - 1 Week Discharge Medications: Continued aspirin 81 mg Tablet,Delayed Release (Dr/Ec) 81 mg PO DAILY Qty: 30 0RF lorazepam 0.5 mg Tablet 0.5 mg PO DAILY metformin 1,000 mg tablet 1,000 mg PO BIDWM multivitamin Tablet 1 tab PO DAILY atorvastatin 20 mg tablet 20 mg PO DAILY Januvia 100 mg tablet 100 tab PO BEDTIME quetiapine 200 mg tablet 1 tab PO BEDTIME hydralazine 25 mg tablet 1 tab PO TID clonidine HCl 0.2 mg tablet 1 tab PO TID PRN (Reason: Anxiety) pregabalin 100 mg capsule 100 mg PO TID prazosin 1 mg capsule 1 mg PO BEDTIME Protocol: Hold for SBP< HOLD for SBP < : 90 clonazepam 0.5 mg tablet 1 tab PO DAILY PRN (Reason: panic attack) haloperidol 1 mg tablet 1 mg PO TID lisinopril 30 mg tablet 1 tab PO DAILY polyethylene glycol 3350 17 gram/dose powder 17 g PO DAILY haloperidol 2 mg tablet 1 tab PO TID Discharge Orders: Discharge Order (Routine); Ordered 04/28/22 Ordered By: Stephen Grimaldo Diet: NDD3 solids Activity on Discharge: As tolerated Stand Alone Forms: Patient Portal Discharge page Care Plan Goals: recovery Health Concerns: ams Plan of Treatment: resolved Assessment: see above
--- NOTE | 2022-04-28 14:53 | MHC.CM.PN ---
Addendum entered by Tania Chacon 04/28/22 16:20: MULTIPLE CALLS MADE TO [facility], THEY ARE NOT RESPONDING. PT IS ALSO NOT ON THE LEASE THEREFORE THEY MAY NOT OPEN THE DOOR FOR HER PT CALLED VIC ON HIS CELL PHONE, HE REPORTS HE CANNOT COME TO OPEN DOOR UNTIL TOMORROW EVENING AND HE DOES NOT BELIEVE THE NEIGHBOR WILL LET HER STAY. HE REPORTS SHE IS JUST TRYING TO LEAVE SO SHE CAN SMOKE. PT WILL CALL VIC AGAIN AND SEE IF HE CAN GET THE MAINTENANCE TO OPEN THE DOOR FOR HER IF SHE PAYS THE FEE IF THEY WILL, RN IS AWARE SUPERVISORS HAVE ACCESS TO LYFT TO GET PT HOME Original Note: PT IS MEDICALLY CLEARED AND STATING SHE WANTS TO GO HOME NOW PT IS NOT INTERESTED IN STR, SHE WAS ALSO INFORMED SHE WOULD NOT HAVE A VNA THERE ARE NO ACCEPTING AGENCIES SHE STATES SHE STILL WANTS TO GO HOME SHE STATES SHE NEEDS A LYFT AND DOES NOT HAVE HER HOUSE KEYS CM CALLED PTS ROOMMATE, VIC PEREIRA [phone] AND INFORMED HIM SHE WOULD BE DISCHARGED TODAY HE REPORTS SHE TOLD HIM SHE COULD NOT FIND HER KEYS AND HE HAS NOT BEEN ABLE TO FIND THEM IN THE HOME HE ALSO STATES HE IS OUT OF TOWN FOR THE WEEKEND VIC ALSO REPORTS HE DOES NOT WANT [place] TO LIVE THERE ANY LONGER BECAUSE HE IS BEING INVESTIGATED BY DP DUE TO THE MESS SHE MAKES CM DISCUSSED POSSIBLE OPTIONS WITH HIM INCLUDING GOING TO COURT FOR EVICTION OR GETTING A NO TRESPASSING ORDER, HOWEVER HE WAS REMINDED IT IS STILL HER HOME AT THIS TIME AND WE CANNOT MAKE HER GO ELSEWHERE CM CALLED THE ED AND SECURITY, PTS KEYS HAVE NOT BEEN TURNED IN CM CALLED [facility] MAINTENANCE REQUESTING PTS DOOR BE OPENED THEY REPORT THERE IS A $25 OR $40 FEE THEY WILL CALL PT TO DISCUSS PER POLICY
[2022-04-28] MEDS: clonazePAM 0.5 MG TABLET PO (15:32)
[2022-04-28 16:17] LABS: Glucose, Whole Blood 188 mg/dL (60-115)
--- NOTE | 2022-04-28 16:56 | PC.NURSE ---
Pt called by STARR Puri. She states he will be home around 7pm, and that he spoke w/ neighbor Bharath who will allow her to stay with him till then. Case Manager Sasha Velez aware, and called a maryse for the Pt.
== END 2022-04-28 17:08 | disposition home health service (06) | DRG 871 ==
LOC: HO.ED 19:27 → HO.EDOVER 19:57 → HO.S3 04-24 13:21
PROVIDERS: Physician Assistant Medical; Radiology Diagnostic Radiology; Admitting Provider Physician Assistant; Emergency Provider Emergency Medicine; PCP Nurse Practitioner Family; Visit Provider Internal Medicine
PROC: 009U3ZZ Drainage of Spinal Canal, Percutaneous Approach (ICD-10-PCS; CPT 62270; principal; 2022-04-24 15:30)
DX: A41.9 Sepsis, unspecified organism (principal); E11.10 Type 2 diabetes mellitus with ketoacidosis without coma; G92.8 Other toxic encephalopathy; F11.20 Opioid dependence, uncomplicated; F31.9 Bipolar disorder, unspecified; I10 Essential (primary) hypertension; E11.42 Type 2 diabetes mellitus with diabetic polyneuropathy; G40.909 Epilepsy, unspecified, not intractable, without status epilepticus; Z86.73 Personal history of transient ischemic attack (TIA), and cerebral infarction without residual deficits; R13.10 Dysphagia, unspecified; E83.42 Hypomagnesemia; E87.6 Hypokalemia; Z20.822 Contact with and (suspected) exposure to COVID-19; Z88.5 Allergy status to narcotic agent; Z88.2 Allergy status to sulfonamides; Z88.8 Allergy status to other drugs, medicaments and biological substances; Z79.82 Long term (current) use of aspirin; Z79.84 Long term (current) use of oral hypoglycemic drugs; Z79.899 Other long term (current) drug therapy
CPT/HCPCS: 36415; 62328; 70496; 70498; 70551; 71045; 72070; 80048; 80076; 80202; 80307; 81001; 82077; 82140; 82550; 82803; 82945; 82947; 83605; 83690; 83735; 83880; 84157; 84439; 84443; 84484; 85025; 85027; 85610; 87015; 87040; 87070; 87147; 87205; 87483; 87493; 87502; 87507; 87635; 89051; 92526; 92610; 93005; 93308; 97161; 99285; J0290; J0696; J1100; J1650; J1956; J2060; J3370; J3475; Q9957; Q9967

== ENCOUNTER 2022-05-06 01:22 | Inpatient (IN) | payer OTHER, SELFPAY ==
[2022-05-06] VITALS (11 sets, daily range): BP systolic 62–146; BP diastolic 27–54; PULSE 77–110; RESP 12–22; TEMP 36.9–37.2; O2SAT 93–98; BMI 33.6
--- NOTE | ~2022-05-06 | XR_ITS ---
EXAMINATION: XR CHEST CLINICAL INFORMATION: Mental status change, rule out pneumonia COMPARISON: 04/23/2022 TECHNIQUE: Frontal view of the chest was obtained. FINDINGS: Lung volumes are symmetric. No focal consolidation is seen. No evidence of pneumothorax, pleural effusion, or pulmonary edema. The cardiomediastinal contour is unremarkable. No acute osseous findings are seen. XR/XR chest 1V IMPRESSION: No acute cardiopulmonary findings.
--- NOTE | ~2022-05-06 | CT_ITS ---
EXAMINATION: CT HEAD WITHOUT CONTRAST CLINICAL INFORMATION: Mental status change COMPARISON: 04/23/2022 TECHNIQUE: Contiguous axial imaging was performed from the skull base to vertex without intravenous administration of contrast. This CT examination was performed using dose optimization techniques as appropriate, variously including the following: *Automated exposure control *Adjustment of mA and/or kV according to patient size (this includes techniques or standardized protocols for targeted exams where dose is matched to indication/reason for exam; i.e. extremities or head) *Use of iterative reconstruction technique DLP: 752 mGy-cm FINDINGS: There is no evidence of acute intracranial hemorrhage. Redemonstrated region of chronic infarct in the right occipital lobe. In comparison to prior examination there is also suggestion of loss of ragsdale-white differentiation in the left occipital lobe, raising concern for acute infarct. No abnormal mass-effect or midline shift is seen. Ragsdale to white matter differentiation is otherwise well preserved. No extra-axial fluid collections are identified. The ventricles are normal in size. Mild volume loss is noted. The osseous structures and soft tissues are normal. The mastoid air cells and visualized portions of the paranasal sinuses are well-aerated. CT/CT head/brain wo IV con IMPRESSION: Suggestion of new loss of ragsdale-white differentiation in the left occipital lobe, raising concern for acute infarct. Further evaluation with MRI is recommended. This critical result was discussed with Dr. Wood on 05/06/2022 5:33 AM, and it was ascertained that the content and urgency of the report was understood at the time of direct communication.
--- NOTE | 2022-05-06 01:34 | ED.AMS ---
HPI - Altered Mental Status General Chief Complaint: General Medical Stated Complaint: ams Time Seen by Provider: 05/06/22 01:30 Source: EMS and other (ED nurse) Mode of arrival: EMS Limitations: altered mental status History of Present Illness HPI narrative: 57-year-old female past medical history of asthma, bipolar disorder, diabetes, hypertension, IBS, peripheral neuropathy, polysubstance abuse, seizure disorder, UTI encephalopathy who was brought to the emergency department by ambulance for evaluation of altered mental status. Apparently the patient was in her apartment complex knocking on neighbor's doors. She appeared to be confused. There was a concerned that she may be drinking alcohol. Paramedics noted the patient had a low blood pressure and her glucose was 440. The patient was able to tell me her name but appears to be confused, she was not answering questions appropriately. The patient was seen in the emergency department on 04/23/2022 (14 days prior) with altered mental status. Patient was admitted to the hospital for acute toxic encephalopathy of unclear etiology. Patient had negative urine culture, and negative workup for meningitis and blood cultures grew coag-negative staph which was most likely contaminant. Her CT scan and MRI of the brain were unremarkable. Her tox screen was positive for fentanyl. Related Data Home Medications Medication Instructions Recorded Confirmed lorazepam 0.5 mg tablet 0.5 mg PO DAILY 07/15/21 04/23/22 metformin 1,000 mg tablet 1,000 mg PO BIDWM 09/03/21 04/23/22 multivitamin 1 tab PO DAILY 09/03/21 04/23/22 atorvastatin 20 mg tablet 20 mg PO DAILY 01/15/22 04/23/22 sitagliptin phosphate 100 mg 100 tab PO BEDTIME 01/15/22 04/23/22 tablet (Januvia) clonidine HCl 0.2 mg tablet 1 tab PO TID PRN Anxiety 03/08/22 04/23/22 hydralazine 25 mg tablet 1 tab PO TID 03/08/22 04/23/22 prazosin 1 mg capsule 1 mg PO BEDTIME 03/08/22 04/23/22 pregabalin 100 mg capsule 100 mg PO TID 03/08/22 04/23/22 quetiapine 200 mg tablet 1 tab PO BEDTIME 03/08/22 04/23/22 clonazepam 0.5 mg tablet 1 tab PO DAILY PRN panic attack 04/06/22 04/23/22 haloperidol 1 mg tablet 1 mg PO TID 04/06/22 04/23/22 haloperidol 2 mg tablet 1 tab PO TID 04/06/22 04/23/22 lisinopril 30 mg tablet 1 tab PO DAILY 04/06/22 04/23/22 polyethylene glycol 3350 17 17 g PO DAILY 04/06/22 04/23/22 gram/dose oral powder Previous Rx's Medication Instructions Recorded aspirin 81 mg tablet,delayed 81 mg PO DAILY #30 tabs 03/16/22 release Allergies Allergy/AdvReac Type Severity Reaction Status Date / Time morphine [MORPHINE] Allergy Unknown RASH, vomit Verified 01/15/22 00:48 prednisone Allergy Unknown hives Verified 01/15/22 00:48 Sulfa (Sulfonamide Allergy Unknown UNKNOWN, Verified 01/15/22 00:48 Antibiotics) hives [SULFA (SULFONAMIDE ANTIBIOTICS)] Review of Systems Review of Systems: Yes unobtainable due to endotracheal tube PMFSH Past Medical History PMFSH Narrative: Past medical history: Also includes metabolic encephalopathy. Medical History Asthma Bipolar disorder Chronic pain Diabetes History of recent stroke Hypertension IBS (irritable bowel syndrome) Opioid use disorder Peripheral neuropathy Polysubstance abuse Seizure Surgical History History of appendectomy Social History Social History Household Members: Friend(s) Household Members Other:: roommate Housing: Unknown / Unable to assess Do you presently have visiting nurse or other home services: No Unable to assess alcohol history related to: Unable to respond Alcohol intake: unknown Patient Tobacco Use Status: Refuse Tobacco use screen Tobacco use type: Cigarette Cigarette Packs Per Day: 1 Cigarettes Per Day: 20.0 Substance Use Type: Unknown Advance Directives: Yes Advance Directives on File: Yes Advance Directives Date on File: 09/03/21 service: No Current occupational status: disabled Physical Exam ED Vital Signs: Vital Signs - 24 hr 05/06/22 01:58 Temperature 98.6 F Pulse Rate 92 Respiratory Rate 12 Blood Pressure 62/27 L Pulse Oximetry 97 Oxygen Delivery Method Room Air BMI result Body Mass Index 33.6 Const Other: The patient is altered, she was able to tell me her name, she did not answer questions appropriately, she is diaphoretic, her skin feels call HENMT Head: Yes normal to inspection, Yes normocephalic and Yes atraumatic Ears: external ears normal General nose exam: Normal external nose present Face and sinus: Yes normal facial exam Mouth: Normal oral and palatal mucosa present Throat: Yes posterior oropharynx normal Eyes General: appearance normal, both eyes and all related structures Neck Neck: Yes normal visual inspection, Yes no lymphadenopathy, Yes trachea midline and Yes supple Chest Chest palpation & inspection: normal inspection of the chest and normal palpation of entire chest wall Resp Effort & Inspection: normal respiratory effort and able to speak in complete sentences Auscultation: clear to auscultation bilaterally Cardio Rate: regular rate Rhythm: regular rhythm Heart sounds: S1 normal heart sound present, S2 normal heart sound present and no murmurs GI Inspection: Yes normal to inspection Palpation (GI): Soft to palpation, nontender and no guarding Auscultation: normal bowel sounds General: Yes no CVA tenderness Back/Spine/Pelvis Back: no CVA tenderness Skin General skin exam: no rashes or lesions noted Neuro Other: She is oriented to person only, she does move her extremities symmetrically and spontaneously Medical Decision Making Medical Decision Making MDM Narrative: 57-year-old female who was brought to the emergency department for evaluation of altered mental status, apparently she was knocking on her neighbor's doors in her apartment complex and appeared to be very confused. The patient is altered here in the emergency department, patient's blood pressure was low. I ordered a laboratory workup to include CBC, CMP, PT/INR, PTT, troponin, magnesium, ETOH, urine tox screen, urinalysis, COVID-19, influenza, lactic acid, lipase, TSH with reflex T4, blood cultures x2. EKG, CT scan of the brain and chest x-ray will be obtained. Given her hypotension I did order a 30 cc/kilogram bolus IV. Given her previous admissions for UTI encephalopathy the patient was ordered to get ceftriaxone 1 g IV. The patient will also be given intranasal Narcan to see if this changes her altered mental status. 0226: The patient did appear to become more responsive after receiving intranasal Narcan. She was more verbal, she did answer questions, she asked for water and was able to drink water. Patient's laboratory evaluation is pending. At the end of my shift, patient's care was turned over to my colleague, Dr. Malka Wood. Differential Diagnosis Differential diagnosis includes was not limited to alcohol intoxication, polysubstance use, urinary tract infection, electrolyte abnormality, encephalopathy Discharge Plan Discharge Clinical Impression: Altered mental status, Acute hypotension, Opiate use Patient Disposition: Still a Patient Prescriptions: No Action aspirin 81 mg Tablet,Delayed Release (Dr/Ec) 81 mg PO DAILY Qty: 30 0RF lorazepam 0.5 mg Tablet 0.5 mg PO DAILY metformin 1,000 mg tablet 1,000 mg PO BIDWM multivitamin Tablet 1 tab PO DAILY atorvastatin 20 mg tablet 20 mg PO DAILY Januvia 100 mg tablet 100 tab PO BEDTIME quetiapine 200 mg tablet 1 tab PO BEDTIME hydralazine 25 mg tablet 1 tab PO TID clonidine HCl 0.2 mg tablet 1 tab PO TID PRN (Reason: Anxiety) pregabalin 100 mg capsule 100 mg PO TID prazosin 1 mg capsule 1 mg PO BEDTIME Protocol: Hold for SBP< HOLD for SBP < : 90 clonazepam 0.5 mg tablet 1 tab PO DAILY PRN (Reason: panic attack) haloperidol 1 mg tablet 1 mg PO TID lisinopril 30 mg tablet 1 tab PO DAILY polyethylene glycol 3350 17 gram/dose powder 17 g PO DAILY haloperidol 2 mg tablet 1 tab PO TID
--- NOTE | 2022-05-06 01:35 | ECG_ITS ---
Test Reason : POSSIBLE SEPSIS Blood Pressure : / mmHG Vent. Rate : 082 BPM Atrial Rate : 082 BPM P-R Int : 164 ms QRS Dur : 084 ms QT Int : 388 ms P-R-T Axes : 019 030 016 degrees QTc Int : 453 ms Normal sinus rhythm Normal ECG When compared with ECG of 23-APR-2022 15:00, No significant change was found Referred By: Tong Bai Electronically Signed By:LOUISE URRUTIA
[2022-05-06] MEDS: Naloxone HCl Nasal TAKE HOME 4 MG SPRAY NOSTRILALT (02:22)
[2022-05-06 02:33] LABS: Basophils Absolute Auto 0.1 X10*3/uL (0.0-0.2); Basophils Percent Auto 0.4 % (0-2); Hematocrit 33.9 % (37.0-47.0); Hemoglobin 11.2 g/dl (12.0-16.0); Imm Gran Abs Auto 0.16 X10*3/uL (0.00-0.03); Imm Gran Pct Auto 0.7 % (0.0-0.4); Lymphocytes Absolute Auto 2.2 X10*3/uL (1.2-4.9); MANUAL DIFF FLAG SCAN; Mean Corpuscular Hemoglobin 27.9 pg (27.0-33.0); Mean Corpuscular Volume 84.5 fL (80.0-98.0); Monocytes Absolute Auto 1.1 X10*3/uL (0.1-1.2); Monocytes Percent Auto 4.8 % (2-11); Neutrophils Absolute Auto 20.4 x10*3/uL (2.0-8.3); Neutrophils Percent Auto 85.1 % (45-73); Platelet Count 358 X10*3/uL (160-400); Red Blood Count 4.01 X10*6/uL (4.20-5.50); Red Cell Distribution Width 15.9 % (11.0-16.0); SCAN SMEAR FLAG 1
[2022-05-06] MEDS: cefTRIAXone sodium 1 GM in 0.9 % Sodium Chloride 50 ML IV (02:35)
--- NOTE | 2022-05-06 02:37 | PC.NURSE ---
pt alert to name, and location, pt has low blood pressure, provider is aware, pt difficult stick. able to obtain Iv line in the back of right forearm. labs and urine collected and sent. pt placed on bedside monitor. Ekg completed. Medicated per May. Will continue to monitor. Pt is able to answer question appropriately and follow commands.
[2022-05-06 02:41] LABS: Partial Thromboplastin Time 28.4 SEC (26.0-36.4)
[2022-05-06 02:43] LABS: Appearance Urine Turbid; Color Urine Yellow; Glucose Urine UA 500 mg/dL (Negative); Leukocyte Esterase Urine Moderate (2+) (Negative); Nitrite Urine Negative (Negative); PH 5.5 (5.0-9.0); UMIC TRIGGER UACC YES; Urine Blood Negative (Negative); Urine Ketones Negative (Negative); Urine Protein 30 (1+) mg/dL (Neg-Trace)
[2022-05-06 02:47] LABS: COVID-19 Test Negative (Negative); IDNOW Serial# 16C4AD1C; IDNOW Serial# BCCEAD1C; Influenza A Negative (Negative); Influenza B2 Negative (Negative)
[2022-05-06 02:49] LABS: Lactic Acid 12.9 mmol/L (0.5-2.0)
[2022-05-06 02:53] LABS: Amphetamine Screen Urine Not Detected (Not Detect); Barbiturates, Urine Not Detected (Not Detect); Benzodiazepines Screen Urine Not Detected (Not Detect); Cannabinoid Screen Urine Not Detected (Not Detect); Cocaine Screen Urine Not Detected (Not Detect); Fentanyl, urine POSITIVE (Not Detect); Opiate Screen Urine Not Detected (Not Detect); Phencyclidine Screen Urine Not Detected (Not Detect)
[2022-05-06 02:54] LABS: Bacteria Urine 1+ (None Seen); Hyaline Casts Urine 0-2 /LPF (0-2); UACC Culture Trigger YES; WBC Urine 21-50 /HPF (0-5)
[2022-05-06 02:56] LABS: SLIDE REVIEW VERIFIED
--- NOTE | 2022-05-06 02:59 | PC.NURSE ---
critical lactic 12.9. Dr Wood is aware. Will continue to monitor.
[2022-05-06 03:15] LABS: Alanine Aminotransferase 21 U/L (0-31); Albumin Level 3.7 g/dL (3.5-5.0); Alkaline Phosphatase 94 U/L (39-117); Anion Gap 28 (12-20); Aspartate Amino Transferase 16 U/L (5-31); Bilirubin Total 0.3 mg/dL (0.0-1.0); Blood Urea Nitrogen 30 mg/dL (9-16); Calcium 9.5 mg/dL (8.4-10.2); Carbon Dioxide 20 mmol/L (22-29); Chloride 95 mmol/L (96-108); Estimated Glomerular Filt Rate 16; Ethanol < 10 mg/dL; Glucose Random 403 mg/dL (60-115); Lipase 26 U/L (8-78); Magnesium 1.6 mg/dL (1.6-2.6); Potassium 4.8 mmol/L (3.3-5.1); Sodium 138 mmol/L (135-145); Total Protein 6.1 g/dL (6.5-8.0)
[2022-05-06 03:18] LABS: Troponin-I High Sensitivity 83.1 ng/L (<3.5-17.0)
[2022-05-06 03:19] LABS: TSH reflex Free T4 6.04 uIU/mL (0.32-4.0)
[2022-05-06] MEDS: 0.9 % Sodium Chloride 1,000 ML 999 ML IVCONT ×2 (04:09→05:28)
[2022-05-06 04:28] LABS: Reflex Lactate? Lactic Acid Added
[2022-05-06 05:05] LABS: ~Lactic Acid-LAB USE ONLY 4.9 mmol/L (0.5-2.0)
[2022-05-06 05:09] LABS: Acetaminophen LAB < 17 mcg/mL (<30)
[2022-05-06] MEDS: Insulin Regular, Human 100 UNIT/ML 3 ML VIAL 10 UNIT IVPUSH (05:09)
--- NOTE | 2022-05-06 05:12 | PC.NURSE ---
Medicated per Mar with insulin for poc
[2022-05-06 06:04] LABS: Glucose, Whole Blood 145 mg/dL (60-115)
--- NOTE | 2022-05-06 06:33 | PC.NURSE ---
pt given additional fluid for low bp, provider is aware. Will continue to monitor.
[2022-05-06 06:37] LABS: Reflex Lactate? 2 Y
[2022-05-06] MEDS: Phenylephrine HCL 10 MG/ML VIAL IVPUSH (06:44)
--- NOTE | 2022-05-06 06:48 | PC.NURSE ---
Medicated per Mar, Provider aware of low blood pressure, will continue to monitor.
[2022-05-06 07:48] LABS: Hematocrit 30.1 % (37.0-47.0); Hemoglobin 10.3 g/dl (12.0-16.0); Mean Corpuscular HGB Conc 34.2 g/dl (31.0-35.0); Mean Corpuscular Hemoglobin 27.7 pg (27.0-33.0); Mean Corpuscular Volume 80.9 fL (80.0-98.0); Mean Platelet Volume 10.3 fL (9.4-12.3); Platelet Count 294 X10*3/uL (160-400); Red Blood Count 3.72 X10*6/uL (4.20-5.50)
[2022-05-06 08:06] LABS: Anion Gap 17 (12-20); Blood Urea Nitrogen 28 mg/dL (9-16); Carbon Dioxide 19 mmol/L (22-29); Chloride 106 mmol/L (96-108); Creatinine Clr Calc Pharmacy 32.6; Estimated Glomerular Filt Rate 23; Glucose Random 159 mg/dL (60-115); Sodium 138 mmol/L (135-145); ~Lactic Acid-LAB USE ONLY 2.6 mmol/L (0.5-2.0)
[2022-05-06 08:24] LABS: Troponin-I High Sensitivity 62.2 ng/L (<3.5-17.0)
--- NOTE | 2022-05-06 10:44 | PM.IMHP ---
History of Present Illness Date of Service: 05/06/22 Attending physician on admission: Michaelle Gutierres Chief Complaint: confusion this is a 57-year-old female [place] [facility] [place] due to [place]. She was brought to the hospital after she was found confused and knocking on people's doors in her apartment complex. On arrival she was noted to be hypotensive with blood pressure in the 60s systolic. lab work was significant for leukocytosis of 24,000, acute kidney injury with creatinine 3.08, lactic acidosis with lactic acid of 12.9, hyperglycemia. Elevated troponin 83.1, CPK 342. urinalysis suggestive of possible urinary tract infection, she was treated with IV ceftriaxone. CT scan of the brain was obtained and showed concern over acute infarct although she did not display any focal neurological deficits. She was treated with 30 cc/kg bolus of fluid, received Narcan. Gradually her blood pressure began to improve and her lactic acid trended down. On my evaluation the patient is awake alert and oriented to person and place. She is unable to describe the events leading up to her hospitalization and adamantly denies using drugs although her tox screen is positive for fentanyl. She denies any fever, chills, abdominal pain, shortness of breath, chest pain. She does appear to have a dry cough, Chest x-ray showed no acute pathology. She will be admitted for further workup and management. Review of Systems Review of Systems: Yes all other systems are reviewed and are negative Constitutional: Constitutional: Denies chills and Denies fever(s) Cardiovascular: Cardiovascular: Denies chest pain, Denies palpitations and Denies dyspnea Respiratory: Respiratory: Reports cough and Denies dyspnea Gastrointestinal: Gastrointestinal: Denies abdominal pain, Denies nausea and Denies vomiting Endocrine: Endocrine: Denies palpitations [facility] Medical History Asthma Bipolar disorder Chronic pain Diabetes History of recent stroke Hypertension IBS (irritable bowel syndrome) Opioid use disorder Peripheral neuropathy Polysubstance abuse Seizure Functional capacity: independent ambulation Surgical History History of appendectomy Social History Household Members: Friend(s) Household Members Other:: roommate Housing: Unknown / Unable to assess Do you presently have visiting nurse or other home services: No Unable to assess alcohol history related to: Unable to respond Alcohol intake: current Patient Tobacco Use Status: Refuse Tobacco use screen Tobacco use type: Cigarette Cigarette Packs Per Day: 1 Cigarettes Per Day: 20.0 Smoked in Last 30 Days: No Use of substances other than those prescribed or required for medical reasons: Yes Substance Use Type: Opiates Advance Directives: Yes Advance Directives on File: Yes Advance Directives Date on File: 09/03/21 service: No Current occupational status: disabled Meds Allergies Allergy/AdvReac Type Severity Reaction Status Date / Time morphine [MORPHINE] Allergy Unknown RASH, vomit Verified 01/15/22 00:48 prednisone Allergy Unknown hives Verified 01/15/22 00:48 Sulfa (Sulfonamide Allergy Unknown UNKNOWN, Verified 01/15/22 00:48 Antibiotics) hives [SULFA (SULFONAMIDE ANTIBIOTICS)] Active Medications: Current Medications Acetaminophen (Acetaminophen 325 Mg Tablet) 650 mg PO Q6H PRN PRN Reason: Pain, Mild (Pain Scale 1-3) Dextrose (Dextrose 50 % 25 Gm/50 Ml Syringe) 25 gm IVPUSH Q15M PRN; Protocol PRN Reason: per Hypoglycemia Standing Ord. Enoxaparin Sodium (Enoxaparin Sodium 40 Mg/0.4 Ml Syringe) 40 mg SUBCUT Q24H [facility] Glucose (Glucose Gel 15 Gm Gel..Gram.) 15 gm PO Q15M PRN; Protocol PRN Reason: per Hypoglycemia Standing Ord. Lactated Ringer's (Lr) 1,000 mls @ 100 mls/hr IVCONT .Q10H [facility] Insulin Human Lispro (Insulin Lispro 100 Unit/Ml 3 Ml Vial) 0 unit SUBCUT QIDACHS [facility]; Protocol Pharmacy Consult (Consult Rx Perform Med Rec) 1 each MISCELLANE ONCE PRN PRN Reason: Consult order Sodium Chloride (0.9 % Sodium Chloride Flush 3 Ml Syringe) 3 ml IVFLUSH QSHIFT [facility] Home Medications Medication Instructions Recorded Confirmed Last Taken Type lorazepam 0.5 mg tablet 0.5 mg PO DAILY 07/15/21 05/06/22 03/13/22 History metformin 1,000 mg tablet 1,000 mg PO BIDWM 09/03/21 05/06/22 03/13/22 History multivitamin 1 tab PO DAILY 09/03/21 05/06/22 03/13/22 History atorvastatin 20 mg tablet 20 mg PO DAILY 01/15/22 05/06/22 03/13/22 History sitagliptin phosphate 100 mg 100 tab PO BEDTIME 01/15/22 05/06/22 03/12/22 History tablet (Januvia) clonidine HCl 0.2 mg tablet 1 tab PO TID PRN Anxiety 03/08/22 05/06/22 03/07/22 History hydralazine 25 mg tablet 1 tab PO TID 03/08/22 05/06/22 03/13/22 History prazosin 1 mg capsule 1 mg PO BEDTIME 03/08/22 05/06/22 03/12/22 History pregabalin 100 mg capsule 100 mg PO TID 03/08/22 05/06/22 03/13/22 History quetiapine 200 mg tablet 1 tab PO BEDTIME 03/08/22 05/06/22 03/12/22 History clonazepam 0.5 mg tablet 1 tab PO DAILY PRN panic attack 04/06/22 05/06/22 Unknown History haloperidol 1 mg tablet 1 mg PO TID 04/06/22 05/06/22 Unknown History haloperidol 2 mg tablet 1 tab PO TID 04/06/22 05/06/22 Unknown History lisinopril 30 mg tablet 1 tab PO DAILY 04/06/22 05/06/22 Unknown History polyethylene glycol 3350 17 17 g PO DAILY 04/06/22 05/06/22 Unknown History gram/dose oral powder Physical Exam Vital Signs and Narrative: Vital Signs: Last Vital Signs Temp 98.4 F 05/06/22 06:35 Pulse 79 05/06/22 10:28 Resp 16 05/06/22 10:28 BP 98/51 L 05/06/22 10:28 Pulse Ox 93 05/06/22 10:28 O2 Del Method 05/06/22 10:28 BMI result Body Mass Index 33.6 Const: Other: easily arousable to verbal stimuli General: comfortable and no acute distress Nutritional Appearance: obese Orientation/consciousness: oriented to person and oriented to place Resp: Other: diminished breath sounds Effort & Inspection: normal respiratory effort, able to speak in complete sentences, no respiratory distress and no use of accessory muscles Cardio: Rate: regular rate Heart sounds: S1 normal heart sound present and S2 normal heart sound present GI: Inspection: No distended and Yes obesity Palpation (GI): Soft to palpation, nontender and no guarding Neuro: General: oriented to person, oriented to place and CN's II-XI intact bilaterally Extrem: General: Yes no pedal edema Results Labs 05/06/22 07:31 05/06/22 07:31 Labs: Laboratory Results - last 24 hr 05/06/22 05/06/22 05/06/22 02:24 02:24 02:24 MCV 84.5 MCH 27.9 MCHC 33.0 RDW 15.9 Plt Count 358 D MPV 11.0 Immature Gran % (Auto) 0.7 H Neut % (Auto) 85.1 H Lymph % (Auto) 9.0 L Sherman % (Auto) 4.8 Eos % (Auto) 0.0 Baso % (Auto) 0.4 Lymph # (Auto) 2.2 Sherman # (Auto) 1.1 Eos # (Auto) 0.0 Baso # (Auto) 0.1 Abs Immat Gran (auto) 0.16 H Absolute Neuts (auto) 20.4 H Absolute Nucleated RBC 0.000 Nucleated RBC % (auto) 0.0 Smear Tech's Comments VERIFIED APTT 28.4 Anion Gap 28 H Estim Creat Clear Calc 23.0 Estimated GFR 16 POC Glucose Random Glucose 403 H* Lactic Acid Lactic Acid F/U @ 2Hr Lactic Acid F/U @ 4Hr Calcium 9.5 D Magnesium 1.6 Total Bilirubin 0.3 AST 16 ALT 21 Alkaline Phosphatase 94 Total Creatine Kinase 342 H Troponin I High Sens Total Protein 6.1 L Albumin 3.7 Lipase 26 TSH 6.04 H Free T4 1.20 Urine Color Urine Appearance Urine pH Ur Specific [place] Urine Protein Urine Glucose (UA) Urine Ketones Urine Blood Urine Nitrite Ur Leukocyte Esterase Urine RBC Urine WBC Ur Squamous Epith Cells Urine Bacteria Hyaline Casts Urine Yeast Urine Opiates Screen Urine Fentanyl Screen Acetaminophen Ur Barbiturates Screen Ur Phencyclidine Scrn Ur Amphetamines Screen U Benzodiazepines Scrn Urine Cocaine Screen U Marijuana (THC) Screen Volat Analys Perform On Ethyl Alcohol < 10 Ethyl Alcohol mg/dL Ethyl Alcohol g/dL Methyl Alcohol Level Isopropyl Alc, Quant Acetone Level COVID-19 ([facility]) COVID-19 Clin Com Influenza Type A ([place]) Influenza Type B ([place]) Influenza A & B Note 05/06/22 05/06/22 05/06/22 02:24 02:24 02:24 MCV MCH MCHC RDW Plt Count MPV Immature Gran % (Auto) Neut % (Auto) Lymph % (Auto) Sherman % (Auto) Eos % (Auto) Baso % (Auto) Lymph # (Auto) Sherman # (Auto) Eos # (Auto) Baso # (Auto) Abs Immat Gran (auto) Absolute Neuts (auto) Absolute Nucleated RBC Nucleated RBC % (auto) Smear Tech's Comments APTT Anion Gap Estim Creat Clear Calc Estimated GFR POC Glucose Random Glucose Lactic Acid 12.9 H* Lactic Acid F/U @ 2Hr Lactic Acid F/U @ 4Hr Calcium Magnesium Total Bilirubin AST ALT Alkaline Phosphatase Total Creatine Kinase Troponin I High Sens 83.1 H* D Total Protein Albumin Lipase TSH Free T4 Urine Color Urine Appearance Urine pH Ur Specific [place] Urine Protein Urine Glucose (UA) Urine Ketones Urine Blood Urine Nitrite Ur Leukocyte Esterase Urine RBC Urine WBC Ur Squamous Epith Cells Urine Bacteria Hyaline Casts Urine Yeast Urine Opiates Screen Urine Fentanyl Screen Acetaminophen Ur Barbiturates Screen Ur Phencyclidine Scrn Ur Amphetamines Screen U Benzodiazepines Scrn Urine Cocaine Screen U Marijuana (THC) Screen Volat Analys Perform On Ethyl Alcohol Ethyl Alcohol mg/dL Ethyl Alcohol g/dL Methyl Alcohol Level Isopropyl Alc, Quant Acetone Level COVID-19 (MARLYS) COVID-19 Clin Com Influenza Type A ([place]) Negative Influenza Type B ([place]) Negative Influenza A & B Note See Note 05/06/22 05/06/22 05/06/22 02:24 02:29 02:29 MCV MCH MCHC RDW Plt Count MPV Immature Gran % (Auto) Neut % (Auto) Lymph % (Auto) Sherman % (Auto) Eos % (Auto) Baso % (Auto) Lymph # (Auto) Sherman # (Auto) Eos # (Auto) Baso # (Auto) Abs Immat Gran (auto) Absolute Neuts (auto) Absolute Nucleated RBC Nucleated RBC % (auto) Smear Tech's Comments APTT Anion Gap Estim Creat Clear Calc Estimated GFR POC Glucose Random Glucose Lactic Acid Lactic Acid F/U @ 2Hr Lactic Acid F/U @ 4Hr Calcium Magnesium Total Bilirubin AST ALT Alkaline Phosphatase Total Creatine Kinase Troponin I High Sens Total Protein Albumin Lipase TSH Free T4 Urine Color Yellow Urine Appearance Turbid Urine pH 5.5 Ur Specific [place] 1.020 Urine Protein 30 (1+) H Urine Glucose (UA) 500 H Urine Ketones Negative Urine Blood Negative Urine Nitrite Negative Ur Leukocyte Esterase Moderate (2+) H Urine RBC 11-20 H Urine WBC 21-50 H Ur Squamous Epith Cells 6-10 Urine Bacteria 1+ Hyaline Casts 0-2 Urine Yeast Present Urine Opiates Screen Not Detected Urine Fentanyl Screen POSITIVE H Acetaminophen Ur Barbiturates Screen Not Detected Ur Phencyclidine Scrn Not Detected Ur Amphetamines Screen Not Detected U Benzodiazepines Scrn Not Detected Urine Cocaine Screen Not Detected U Marijuana (THC) Screen Not Detected Volat Analys Perform On Ethyl Alcohol Ethyl Alcohol mg/dL Ethyl Alcohol g/dL Methyl Alcohol Level Isopropyl Alc, Quant Acetone Level COVID-19 (MARLYS) Negative COVID-19 Clin Com See Note Influenza Type A ([place]) Influenza Type B ([place]) Influenza A & B Note 05/06/22 05/06/22 05/06/22 04:32 04:32 06:01 MCV MCH MCHC RDW Plt Count MPV Immature Gran % (Auto) Neut % (Auto) Lymph % (Auto) Sherman % (Auto) Eos % (Auto) Baso % (Auto) Lymph # (Auto) Sherman # (Auto) Eos # (Auto) Baso # (Auto) Abs Immat Gran (auto) Absolute Neuts (auto) Absolute Nucleated RBC Nucleated RBC % (auto) Smear Tech's Comments APTT Anion Gap Estim Creat Clear Calc Estimated GFR POC Glucose 145 H Random Glucose Lactic Acid Lactic Acid F/U @ 2Hr 4.9 H* Lactic Acid F/U @ 4Hr Calcium Magnesium Total Bilirubin AST ALT Alkaline Phosphatase Total Creatine Kinase Troponin I High Sens Total Protein Albumin Lipase TSH Free T4 Urine Color Urine Appearance Urine pH Ur Specific [place] Urine Protein Urine Glucose (UA) Urine Ketones Urine Blood Urine Nitrite Ur Leukocyte Esterase Urine RBC Urine WBC Ur Squamous Epith Cells Urine Bacteria Hyaline Casts Urine Yeast Urine Opiates Screen Urine Fentanyl Screen Acetaminophen < 17 Ur Barbiturates Screen Ur Phencyclidine Scrn Ur Amphetamines Screen U Benzodiazepines Scrn Urine Cocaine Screen U Marijuana (THC) Screen Volat Analys Perform On Ethyl Alcohol Ethyl Alcohol mg/dL Ethyl Alcohol g/dL Methyl Alcohol Level Isopropyl Alc, Quant Acetone Level COVID-19 (MAR[facility]YS) COVID-19 Clin Com Influenza Type A ([place]) Influenza Type B ([place]) Influenza A & B Note 0205/06/22 05/06/22 06:33 07:31 07:31 MCV MCH MCHC RDW Plt Count MPV Immature Gran % (Auto) Neut % (Auto) Lymph % (Auto) Sherman % (Auto) Eos % (Auto) Baso % (Auto) Lymph # (Auto) Sherman # (Auto) Eos # (Auto) Baso # (Auto) Abs Immat Gran (auto) Absolute Neuts (auto) Absolute Nucleated RBC Nucleated RBC % (auto) Smear Tech's Comments APTT Anion Gap 17 Estim Creat Clear Calc 32.6 Estimated GFR 23 POC Glucose Random Glucose 159 H Lactic Acid Lactic Acid F/U @ 2Hr Lactic Acid F/U @ 4Hr Calcium 8.0 L D Magnesium Total Bilirubin AST ALT Alkaline Phosphatase Total Creatine Kinase Troponin I High Sens 62.2 H* Total Protein Albumin Lipase TSH Free T4 Urine Color Urine Appearance Urine pH Ur Specific [place] Urine Protein Urine Glucose (UA) Urine Ketones Urine Blood Urine Nitrite Ur Leukocyte Esterase Urine RBC Urine WBC Ur Squamous Epith Cells Urine Bacteria Hyaline Casts Urine Yeast Urine Opiates Screen Urine Fentanyl Screen Acetaminophen Ur Barbiturates Screen Ur Phencyclidine Scrn Ur Amphetamines Screen U Benzodiazepines Scrn Urine Cocaine Screen U Marijuana (THC) Screen Volat Analys Perform On Cancelled Ethyl Alcohol Ethyl Alcohol mg/dL Cancelled Ethyl Alcohol g/dL Cancelled Methyl Alcohol Level Cancelled Isopropyl Alc, Quant Cancelled Acetone Level Cancelled COVID-19 (MARLYS) COVID-19 Clin Com Influenza Type A ([place]) Influenza Type B ([place]) Influenza A & B Note 05/06/22 05/06/22 05/06/22 07:31 07:31 07:31 MCV 80.9 MCH 27.7 MCHC 34.2 RDW 16.0 Plt Count 294 MPV 10.3 Immature Gran % (Auto) Neut % (Auto) Lymph % (Auto) Sherman % (Auto) Eos % (Auto) Baso % (Auto) Lymph # (Auto) Sherman # (Auto) Eos # (Auto) Baso # (Auto) Abs Immat Gran (auto) Absolute Neuts (auto) Absolute Nucleated RBC 0.000 Nucleated RBC % (auto) 0.0 Smear Tech's Comments APTT Anion Gap Cancelled Estim Creat Clear Calc Cancelled Estimated GFR Cancelled POC Glucose Random Glucose Cancelled Lactic Acid Lactic Acid F/U @ 2Hr Lactic Acid F/U @ 4Hr 2.6 H* Calcium Cancelled Magnesium Total Bilirubin AST ALT Alkaline Phosphatase Total Creatine Kinase Troponin I High Sens Total Protein Albumin Lipase TSH Free T4 Urine Color Urine Appearance Urine pH Ur Specific [place] Urine Protein Urine Glucose (UA) Urine Ketones Urine Blood Urine Nitrite Ur Leukocyte Esterase Urine RBC Urine WBC Ur Squamous Epith Cells Urine Bacteria Hyaline Casts Urine Yeast Urine Opiates Screen Urine Fentanyl Screen Acetaminophen Ur Barbiturates Screen Ur Phencyclidine Scrn Ur Amphetamines Screen U Benzodiazepines Scrn Urine Cocaine Screen U Marijuana (THC) Screen Volat Analys Perform On Ethyl Alcohol Ethyl Alcohol mg/dL Ethyl Alcohol g/dL Methyl Alcohol Level Isopropyl Alc, Quant Acetone Level COVID-19 (MAR[facility]YS) COVID-19 Clin Com Influenza Type A ([place]) Influenza Type B ([place]) Influenza A & B Note 05/06/22 07:31 MCV MCH MCHC RDW Plt Count MPV Immature Gran % (Auto) Neut % (Auto) Lymph % (Auto) Sherman % (Auto) Eos % (Auto) Baso % (Auto) Lymph # (Auto) Sherman # (Auto) Eos # (Auto) Baso # (Auto) Abs Immat Gran (auto) Absolute Neuts (auto) Absolute Nucleated RBC Nucleated RBC % (auto) Smear Tech's Comments APTT Anion Gap Estim Creat Clear Calc Estimated GFR POC Glucose Random Glucose Lactic Acid Lactic Acid F/U @ 2Hr Lactic Acid F/U @ 4Hr Calcium Magnesium Total Bilirubin AST ALT Alkaline Phosphatase Total Creatine Kinase Troponin I High Sens Cancelled Total Protein Albumin Lipase TSH Free T4 Urine Color Urine Appearance Urine pH Ur Specific [place] Urine Protein Urine Glucose (UA) Urine Ketones Urine Blood Urine Nitrite Ur Leukocyte Esterase Urine RBC Urine WBC Ur Squamous Epith Cells Urine Bacteria Hyaline Casts Urine Yeast Urine Opiates Screen Urine Fentanyl Screen Acetaminophen Ur Barbiturates Screen Ur Phencyclidine Scrn Ur Amphetamines Screen U Benzodiazepines Scrn Urine Cocaine Screen U Marijuana (THC) Screen Volat Analys Perform On Ethyl Alcohol Ethyl Alcohol mg/dL Ethyl Alcohol g/dL Methyl Alcohol Level Isopropyl Alc, Quant Acetone Level COVID-19 (MAR[facility]YS) COVID-19 Clin Com Influenza Type A ([place]) Influenza Type B ([place]) Influenza A & B Note Imaging Radiologist's Impressions: Impressions Chest X-Ray 05/06/22 04:47 IMPRESSION: No acute cardiopulmonary findings. Head CT 05/06/22 04:53 IMPRESSION: Suggestion of new loss of turner-white differentiation in the left occipital lobe, raising concern for acute infarct. Further evaluation with MRI is recommended. This critical result was discussed with Dr. Wood on 05/06/2022 5:33 AM, and it was ascertained that the content and urgency of the report was understood at the time of direct communication. Assessment and Plan (1) Encephalopathy: Status: Acute (2) Cerebral infarction: Status: Acute Plan 57-year-old female with past medical history of asthma, bipolar disorder, diabetes, hypertension, IBS, peripheral neuropathy, polysubstance abuse, seizure disorder, who was discharged recently on 04/09 for UTI encephalopathy admitted for acute toxic metabolic encephalopathy with suspected bacterial meningitis. acute toxic metabolic encephalopathy possibly multifactorial in the setting of polysubstance abuse (positive for fentanyl), possible UTI, and possible new stroke sepsis secondary to suspected UTI met criteria with tachypnea and leukocytosis. Continue IV ceftriaxone received 30 cc/kg bolus due to elvated LA and low bp (drug use likely playing a role as well) lactic acid trending down, bp improving follow results of urine culture, blood cultures hypotension hold home medications DANY improving continue IVF follow BMP probable acute stroke previous right occipital lobe infarct CT brain raising concern for acute infarct in left occipital lobe no focal neurological deficits and unclear LNWT therefore not candidate for TPA neuro checks, swallow eval, PT eval brain MRI neurology consult - continue aspirin and statin [id number] type 2 diabetes with hyperglycemia SSI, POCs, ADA diet - hold p.o. medications bipolar disorder continue home meds hold pregbalin for dany fentanyl abuse -addiction medicine consult DVT prophylaxis:? Lovenox attending - dr. Gutierres Full code given multiple issues patient will likely require 2 midnight stay in the hospital for management and workup of probable acute stroke in UTI Time Spent With Patient Time: Total time managing care of this patient today ____ minutes. Quality Stroke Does the patient have a stroke diagnosis?: No VTE Prior VTE?: No VTE Risk Level:: Medical - moderate - high VTE Device Contraindication: N/A - Device Ordered VTE Drug Contraindication: N/A - Med Ordered
[2022-05-06] MEDS: Enoxaparin Sodium 40 MG/0.4 ML SYRINGE SUBCUT (10:59)
[2022-05-06] MEDS: Lactated Ringers 1,000 ML 100 ML IVCONT (10:59)
[2022-05-06 12:54] LABS: Glucose, Whole Blood 214 mg/dL (60-115)
[2022-05-06] MEDS: Insulin Lispro 100 UNIT/ML 3 ML VIAL SUBCUT ×2 (13:01→17:12)
--- NOTE | 2022-05-06 13:01 | MHC.EDTECH ---
placed a purewick on patient.
--- NOTE | 2022-05-06 13:17 | PHA.MEDREC ---
Pharmacy Consult ? Medication Reconciliation Pharmacy has completed the medication reconciliation. Spoke to patient who was poor historian of medications. Contacted roommate several times, but no answer to phone calls and left message. Patient was recently discharged on 04/28/22, used discharge meds and claim history to confirm meds. Patient recognized duloxetine and latuda, but unable to confirm if they are still taking it.
--- NOTE | 2022-05-06 14:56 | MHC.EDTECH ---
New pure wick placed at this time
[2022-05-06] MEDS: 0.9 % Sodium Chloride Flush 3 ML SYRINGE IVFLUSH (15:12)
[2022-05-06] MEDS: HaloperidoL 1 MG TABLET PO (15:12)
[2022-05-06] MEDS: Acetaminophen 325 MG TABLET 650 MG PO (15:12)
[2022-05-06] MEDS: HaloperidoL 1 MG TABLET 2 MG PO (15:12)
--- NOTE | 2022-05-06 16:52 | PM.EVENT ---
Event Note Date of Service: 05/06/22 Event Note: This patient is seen and examined with APC. Patient came to the hospital because with possible encephalopathy( reccurrent admissions) confused and knocking people door. Seems more awake, moving all extremities and following simple commands. Lab imaging, EKG reviewed. She was found to have hypotension and also DANY, elevated WBC count, lactic acidosis Mild elevation of troponins.hyperglycemia UA positive, Chest x-ray negative ct head suggested -new cva -?left occipital lobe, raising concern for acute infarct. ekg -nsr. tox screen positive for fentnyl. Physical exam : similar to h&p aox2 follows simple commands, moves all ext more awake ,trying to use commode. ed: Patient received fluid 30 cc bolus, Narcan, ceftriaxone for UTI. and assessment and plan coordinated in APCs note, Agree with the plan in addition: Sepsis possible secondary to UTI-continue IV antibiotics, received 30 cc bolus in ED. Follow-up blood cultures Hypotension seems to be improved-hold BP medications. DANY probably multifactorial blood pressure medications, hypertension-Hold blood pressure medication and hydrate. New CVA:? Time duration not clear, seems out of window for tpa. Continue current medication including aspirin, statin, permissive hypertension, MRI, neurology evaluation Addiction consult for fentanyl? Diabetes: Monitor fingersticks with coverage, hold metformin and oral hypoglycemic specially in the setting of lactic acidosis. Lactic acidosis-probably related to hyperglycemia, dehydration, metformin, hypotension. Troponin related to demand, EKG normal patient denies any chest pain. Time Spent With Patient Time: Total time managing care of this patient today ____ minutes.
[2022-05-06 17:11] LABS: Glucose, Whole Blood 222 mg/dL (60-115)
--- NOTE | 2022-05-06 17:13 | MHC.EDTECH ---
ambulated patient, she tolerated well. went around the ED twice
--- NOTE | 2022-05-06 17:59 | PC.NURSE ---
Patient up ambulating with steady gait around unit. Alert and oriented x3, speech clear. Reporting increase pain in back, medicated with PRN tylenol with very little relief.
[2022-05-06 19:58] LABS: Glucose, Whole Blood 263 mg/dL (60-115)
--- NOTE | 2022-05-06 20:57 | PM.EVENT ---
Event Note Date of Service: 05/06/22 Event Note: Informed by nurse that patient wants to leave AMA. Myself as well as APC went to spoke to her. Patient is awake, alert, oriented to place and situation. She understands that she has a UTI as well as a stroke and need further workup and antibiotics. But she is adamant about leaving. She understands the risk which is in worse case scenario is sepsis secondary to UTI and potential . She wants to leave AMA. A script based on previous cultures has been sent to her preferred pharmacy Patient will be leaving against my medical advice Time Spent With Patient Time: Total time managing care of this patient today ____ minutes.
== END 2022-05-06 20:00 | disposition left against medical advice (07) | DRG 871 ==
LOC: HO.ED 02:36 → HO.EDOVER 11:14 → HO.IMC 17:29
PROVIDERS: Emergency Medicine Emergency Medical Services; Admitting Provider Physician Assistant Medical; Emergency Provider Emergency Medicine; PCP Nurse Practitioner Family; Visit Provider Physician Assistant Medical
DX: A41.9 Sepsis, unspecified organism (principal); G92.8 Other toxic encephalopathy; I63.9 Cerebral infarction, unspecified; N17.9 Acute kidney failure, unspecified; N39.0 Urinary tract infection, site not specified; F31.9 Bipolar disorder, unspecified; E11.42 Type 2 diabetes mellitus with diabetic polyneuropathy; E11.65 Type 2 diabetes mellitus with hyperglycemia; F11.10 Opioid abuse, uncomplicated; Z20.822 Contact with and (suspected) exposure to COVID-19; Z88.2 Allergy status to sulfonamides; Z88.5 Allergy status to narcotic agent; Z88.8 Allergy status to other drugs, medicaments and biological substances; Z79.82 Long term (current) use of aspirin; Z79.84 Long term (current) use of oral hypoglycemic drugs; Z79.899 Other long term (current) drug therapy
CPT/HCPCS: 36415; 70450; 71045; 80048; 80053; 80143; 80307; 81001; 82077; 82550; 82947; 83605; 83690; 83735; 84439; 84443; 84484; 85025; 85027; 85730; 87040; 87086; 87147; 87502; 87635; 93005; 99285; J0696; J1650; J2370

== ENCOUNTER 2022-05-09 17:23 | Emergency (ER) | payer OTHER, SELFPAY ==
--- NOTE | ~2022-05-09 | CT_ITS ---
EXAMINATION: CT ABDOMEN AND PELVIS WITH CONTRAST CLINICAL INFORMATION: Abdominal pain. COMPARISON: Prior CT examinations of the abdomen and pelvis, most recently 03/13/2022. TECHNIQUE: Multidetector volumetric images were obtained from the superior aspect of the liver through the pubic symphysis following administration 85 mL of Omnipaque 350 intravenous contrast. Sagittal and coronal reformatted images were obtained on the technologist's workstation. Oral contrast: No This CT examination was performed using dose optimization techniques as appropriate, variously including the following: *Automated exposure control *Adjustment of mA and/or kV according to patient size (this includes techniques or standardized protocols for targeted exams where dose is matched to indication/reason for exam; i.e. extremities or head) *Use of iterative reconstruction technique DLP: 737 mGy-cm FINDINGS: LUNG BASES: There is dependent right base plate-like atelectasis. LIVER, GALLBLADDER, AND BILIARY TREE: The liver is normal in size, shape, and attenuation. Towards the junction of segments 6 and 7 (3:27), a 7 mm low-attenuation subcapsular lesion is seen, likely a cyst or benign hemangioma. This is unchanged from 04/30/2016 (2:24), and it is considered benign by virtue of its long-term stability. No biliary ductal dilatation is present. The gallbladder is unremarkable, with no evidence of radiopaque gallstones, gallbladder wall thickening or obvious pericholecystic inflammatory change. PANCREAS: Unremarkable. SPLEEN: Unremarkable. ADRENAL GLANDS: Unremarkable. KIDNEYS AND URETERS: The kidneys are normal in size and attenuation. 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 No hydronephrosis, hydroureter, or calculi seen. No perinephric stranding. BLADDER: Unremarkable. GASTROINTESTINAL TRACT: There is a large colonic stool burden. No obstruction, free intraperitoneal air or abscess is seen. There is no focal bowel wall thickening. The vermiform appendix is surgically absent. No significant diverticulosis or diverticulitis is seen. ABDOMINAL WALL: There is a diastases rectus. There is a small fat-containing left inguinal hernia. LYMPH NODES: There are shotty, nonpathologically enlarged mesenteric, para-aortic, bilateral iliac chain and inguinal lymph nodes. No sizable abdominopelvic lymphadenopathy is seen. VASCULAR: Unremarkable. PELVIC VISCERA: Surgically absent. No pelvic mass, free fluid or lymphadenopathy is seen. OSSEOUS STRUCTURES: There is multi-level marked thoracolumbar degenerative disc disease and spondylosis. There is a chronic moderate L3 compression fracture. There is intact orthopedic hardware related to a prior L1-S1 posterior fusion. No acute or aggressive osseous abnormality is seen. CT/CT abdomen pelvis w IV con IMPRESSION: 1. Findings suggest possible constipation, without corey bowel obstruction. The vermiform appendix is surgically absent. No focal bowel wall thickening is seen. There is no diverticulosis or diverticulitis. 2. No abdominopelvic mass, free fluid or lymphadenopathy is seen. 3. 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 No urinary calculus or obstructive uropathy is noted. 4. There are multi-level degenerative changes of the spine. There is a chronic L3 compression fracture. There has been a prior posterior fusion extending from L1 to S1. No acute or aggressive osseous abnormality is seen. Fleischner guidelines were followed.
[2022-05-09 18:31] VITALS: BP 122/68; PULSE 90; O2SAT 95
--- NOTE | 2022-05-09 19:27 | ECG_ITS ---
Test Reason : SOB Blood Pressure : / mmHG Vent. Rate : 087 BPM Atrial Rate : 087 BPM P-R Int : 152 ms QRS Dur : 074 ms QT Int : 384 ms P-R-T Axes : 033 012 036 degrees QTc Int : 462 ms Normal sinus rhythm Normal ECG When compared with ECG of 06-MAY-2022 02:41, No significant change was found Referred By: Mia Umanzor Electronically Signed By:ZANE DE LA FUENTE MD
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
[2022-05-09 19:37] VITALS: BP 138/67; PULSE 86; RESP 18; TEMP 36.5; O2SAT 96
[2022-05-09 20:21] LABS: Appearance Urine Clear; Color Urine Yellow; Glucose Urine UA >=1000 mg/dL (Negative); Leukocyte Esterase Urine Trace (Negative); Nitrite Urine Negative (Negative); UMIC TRIGGER UACC YES; Urine Blood Negative (Negative); Urine Ketones Negative (Negative); Urine Protein Trace mg/dL (Neg-Trace)
[2022-05-09 20:26] LABS: Bacteria Urine None Seen (None Seen); Hyaline Casts Urine 0-2 /LPF (0-2); RBC Urine 0-2 /HPF (0-2); UACC Culture Trigger YES
[2022-05-09 20:31] LABS: MANUAL DIFF FLAG NO
[2022-05-09 20:35] LABS: Basophils Absolute Auto 0.1 X10*3/uL (0.0-0.2); Basophils Percent Auto 0.5 % (0-2); Eosinophils Absolute Auto 0.1 X10*3/uL (0.0-0.4); Eosinophils Percent Auto 0.8 % (0-4); Hematocrit 36.5 % (37.0-47.0); Hemoglobin 12.2 g/dl (12.0-16.0); Imm Gran Abs Auto 0.06 X10*3/uL (0.00-0.03); Imm Gran Pct Auto 0.6 % (0.0-0.4); Lymphocytes Absolute Auto 2.8 X10*3/uL (1.2-4.9); Lymphocytes Percent Auto 25.6 % (20-40); Mean Corpuscular HGB Conc 33.4 g/dl (31.0-35.0); Mean Corpuscular Hemoglobin 27.4 pg (27.0-33.0); Mean Platelet Volume 10.3 fL (9.4-12.3); Monocytes Absolute Auto 0.5 X10*3/uL (0.1-1.2); Monocytes Percent Auto 4.6 % (2-11); Neutrophils Absolute Auto 7.3 x10*3/uL (2.0-8.3); Neutrophils Percent Auto 67.9 % (45-73); Platelet Count 291 X10*3/uL (160-400); Red Blood Count 4.45 X10*6/uL (4.20-5.50); Red Cell Distribution Width 15.7 % (11.0-16.0); White Blood Count 10.8 X10*3/uL (4.8-10.8)
[2022-05-09 20:51] LABS: Alanine Aminotransferase 42 U/L (0-31); Albumin Level 3.9 g/dL (3.5-5.0); Alkaline Phosphatase 100 U/L (39-117); Anion Gap 15 (12-20); Aspartate Amino Transferase 37 U/L (5-31); Bilirubin Direct < 0.2 mg/dL (0.0-0.5); Bilirubin Total 0.4 mg/dL (0.0-1.0); Blood Urea Nitrogen 15 mg/dL (9-16); Calcium 9.2 mg/dL (8.4-10.2); Carbon Dioxide 26 mmol/L (22-29); Chloride 101 mmol/L (96-108); Estimated Glomerular Filt Rate 48; Ethanol < 10 mg/dL; Glucose Random 225 mg/dL (60-115); Lipase 22 U/L (8-78); Potassium 4.4 mmol/L (3.3-5.1); Sodium 138 mmol/L (135-145); Total Protein 6.7 g/dL (6.5-8.0)
[2022-05-09 20:53] VITALS: BMI 33.9
[2022-05-09 20:57] LABS: Troponin-I High Sensitivity 3.5 ng/L (<3.5-17.0)
[2022-05-09] MEDS: iohexoL 350 MG/ML 100 ML INFUS..BTL IV (21:30)
[2022-05-09] MEDS: 0.9 % Sodium Chloride 1,000 ML 999 ML IV (21:43)
[2022-05-10 00:12] VITALS: BP 142/72; PULSE 107; RESP 18; TEMP 37; O2SAT 96
[2022-05-10 00:50] LABS: Amphetamine Screen Urine Not Detected (Not Detect); Barbiturates, Urine Not Detected (Not Detect); Benzodiazepines Screen Urine Not Detected (Not Detect); Cannabinoid Screen Urine Not Detected (Not Detect); Cocaine Screen Urine Not Detected (Not Detect); Fentanyl, urine POSITIVE (Not Detect); Opiate Screen Urine Not Detected (Not Detect); Phencyclidine Screen Urine Not Detected (Not Detect)
== END 2022-05-10 01:39 | disposition home or self-care (01) ==
PROVIDERS: Emergency Provider Emergency Medicine Emergency Medical Services; PCP Nurse Practitioner Family
DX: K59.00 Constipation, unspecified (principal); I10 Essential (primary) hypertension; E11.9 Type 2 diabetes mellitus without complications; F31.9 Bipolar disorder, unspecified; F19.10 Other psychoactive substance abuse, uncomplicated; Z79.84 Long term (current) use of oral hypoglycemic drugs; Z79.02 Long term (current) use of antithrombotics/antiplatelets; Z79.899 Other long term (current) drug therapy; Z79.82 Long term (current) use of aspirin
CPT/HCPCS: 36415; 74177; 80048; 80076; 80307; 81001; 82077; 83690; 84484; 85025; 87086; 93005; 99284; 99285; Q9967

== ENCOUNTER 2022-06-07 00:53 | Emergency (ER) | payer OTHER, SELFPAY ==
[2022-06-07 01:04] VITALS: BP 151/59; BP 167/69; PULSE 40; PULSE 49; RESP 16; TEMP 36.6; O2SAT 98; O2SAT 99; BMI 32.3
[2022-06-07 01:09] VITALS: BP 168/70; PULSE 47; RESP 9; TEMP 36.6; O2SAT 95
--- NOTE | 2022-06-07 01:21 | ED.AMS ---
HPI - Altered Mental Status General Chief Complaint: Altered Mental Status Stated Complaint: AMS Time Seen by Provider: 06/07/22 01:07 Source: EMS Mode of arrival: EMS Limitations: no limitations History of Present Illness HPI narrative: Patient's history of substance abuse sleep apnea and frequent UTI diabetes brought by EMS as noticed patient is fall confused and lethargic. Patient refuse taking any drugs initially but later confirmed that she took 3 bags of fentanyl and she took 5 tablets of 1 mg Klonopin which is her usual dose no fall no head injury no fever or chills no vomiting Related Data Home Medications Medication Instructions Recorded Confirmed lorazepam 0.5 mg tablet 0.5 mg PO DAILY 07/15/21 05/06/22 metformin 1,000 mg tablet 1,000 mg PO BIDWM 09/03/21 05/06/22 multivitamin 1 tab PO DAILY 09/03/21 05/06/22 atorvastatin 20 mg tablet 20 mg PO DAILY 01/15/22 05/06/22 sitagliptin phosphate 100 mg 100 tab PO BEDTIME 01/15/22 05/06/22 tablet (Januvia) clonidine HCl 0.2 mg tablet 1 tab PO TID PRN Anxiety 03/08/22 05/06/22 hydralazine 25 mg tablet 1 tab PO TID 03/08/22 05/06/22 prazosin 1 mg capsule 1 mg PO BEDTIME 03/08/22 05/06/22 pregabalin 100 mg capsule 100 mg PO TID 03/08/22 05/06/22 quetiapine 200 mg tablet 1 tab PO BEDTIME 03/08/22 05/06/22 clonazepam 0.5 mg tablet 1 tab PO DAILY PRN panic attack 04/06/22 05/06/22 haloperidol 1 mg tablet 1 mg PO TID 04/06/22 05/06/22 haloperidol 2 mg tablet 1 tab PO TID 04/06/22 05/06/22 lisinopril 30 mg tablet 1 tab PO DAILY 04/06/22 05/06/22 polyethylene glycol 3350 17 17 g PO DAILY 04/06/22 05/06/22 gram/dose oral powder Previous Rx's Medication Instructions Recorded aspirin 81 mg tablet,delayed 81 mg PO DAILY #30 tabs 03/16/22 release levofloxacin 750 mg tablet 750 mg PO DAILY #7 tabs 05/06/22 polyethylene glycol 3350 17 17 g PO DAILY #119 grams 05/10/22 gram/dose oral powder (Miralax) Allergies Allergy/AdvReac Type Severity Reaction Status Date / Time morphine [MORPHINE] Allergy Unknown RASH, vomit Verified 01/15/22 00:48 prednisone Allergy Unknown hives Verified 01/15/22 00:48 Sulfa (Sulfonamide Allergy Unknown UNKNOWN, Verified 01/15/22 00:48 Antibiotics) hives [SULFA (SULFONAMIDE ANTIBIOTICS)] Review of Systems Review of Systems: Yes all other systems are reviewed and are negative [facility] Past Medical History Medical History Asthma Bipolar disorder Chronic pain Diabetes History of recent stroke Hypertension IBS (irritable bowel syndrome) Opioid use disorder Peripheral neuropathy Polysubstance abuse Seizure Surgical History History of appendectomy Social History Social History Household Members: Friend(s) Household Members Other:: roommate Housing: Unknown / Unable to assess Do you presently have visiting nurse or other home services: No Unable to assess alcohol history related to: Unable to respond Alcohol intake: never Patient Tobacco Use Status: Refuse Tobacco use screen Tobacco use type: Cigarette Cigarette Packs Per Day: 1 Cigarettes Per Day: 20.0 Smoked in Last 30 Days: Yes Use of substances other than those prescribed or required for medical reasons: No Substance Use Type: Opiates Advance Directives: Yes Advance Directives on File: Yes Advance Directives Date on File: 09/03/21 service: No Current occupational status: disabled Physical Exam ED Vital Signs: Vital Signs - 24 hr 06/07/22 01:04 06/07/22 01:09 06/07/22 03:14 Temperature 97.9 F 97.9 F 97.8 F Pulse Rate 49 L 47 L 50 Respiratory Rate 16 9 L 16 Blood Pressure 151/59 H 168/70 H 141/61 H Pulse Oximetry 99 95 97 Oxygen Delivery Method Room Air Room Air Room Air BMI result Body Mass Index 32.3 Appearance: Alert. Oriented X2-3 lethargic. No acute distress. Eyes: PERRLA, No Nystagmus ENT: Pharynx normal. Oral Mucosa moist Neck: Normal inspection. Neck supple. CVS: Normal heart rate and rhythm. Pulses normal. Respiratory: No respiratory distress. Equal air entry bilateral, no wheezing/rales/rhonchi Abdomen: Soft and nontender. Bowel sounds are present, no mass palpable, no CVA tenderness Skin: Skin warm and dry. Normal skin color. Normal skin turgor. Extremities: No lower extremity edema. No calf tenderness Neuro: Oriented X 2-3. No motor deficit. No sensory deficit.No cerebellar signs , cranial nerves II-XII intact Medications Administered Discontinued Medications Generic Name Dose Route Start Last Admin Trade Name Freq PRN Reason Stop Dose Admin Sodium Chloride 1,000 mls @ 999 mls/hr 06/07/22 01:24 06/07/22 02:50 Ns IV 06/07/22 02:24 Infused .Q1H1M ONE Infusion Insulin Human Lispro 14 unit 06/07/22 01:24 06/07/22 01:42 Insulin Lispro 100 Unit/Ml 3 Ml Vial SUBCUT 06/07/22 01:25 14 unit ONCE ONE Administration Nitrofurantoin Macrocrystals 100 mg 06/07/22 04:18 06/07/22 05:26 Nitrofurantoin Monohyd/M-Cryst 100 Mg Capsule PO 06/07/22 04:19 100 mg ONCE ONE Administration Medical Decision Making Medical Decision Making [facility] Narrative: 04:00 Patient with acute confusion and lethargic with history of substance abuse patient admits using fentanyl earlier today and along with that patient took 5 tablets of Klonopin to relax and sleep during stay in the ER patient improved back to her baseline patient UA showed wbc's possible UTI patient denies any symptoms will give her Macrobid Lab Data [facility] Lab Attestation statement: I reviewed the patient's lab results. 06/07/22 01:37 06/07/22 01:37 Labs: Lab Results 06/07/22 06/07/22 06/07/22 Range/Units 01:37 01:37 01:37 WBC 14.9 H (4.8-10.8) X10*3/uL RBC 4.71 (4.20-5.50) X10*6/uL Hgb 12.9 (12.0-16.0) g/dl Hct 38.7 (37.0-47.0) % MCV 82.2 (80.0-98.0) fL MCH 27.4 (27.0-33.0) pg MCHC 33.3 (31.0-35.0) g/dl RDW 15.4 (11.0-16.0) % Plt Count 276 (160-400) X10*3/uL MPV 11.1 (9.4-12.3) fL Immature Gran % (Auto) 0.3 (0.0-0.4) % Neut % (Auto) 73.8 H (45-73) % Lymph % (Auto) 20.2 (20-40) % [place] % (Auto) 4.1 (2-11) % Eos % (Auto) 1.1 (0-4) % Baso % (Auto) 0.5 (0-2) % Lymph # (Auto) 3.0 (1.2-4.9) X10*3/uL [place] # (Auto) 0.6 (0.1-1.2) X10*3/uL Eos # (Auto) 0.2 (0.0-0.4) X10*3/uL Baso # (Auto) 0.1 (0.0-0.2) X10*3/uL Abs Immat Gran (auto) 0.05 H (0.00-0.03) X10*3/uL Absolute Neuts (auto) 11.0 H (2.0-8.3) x10*3/uL Absolute Nucleated RBC 0.000 (0.0-0.012) X10*3/uL Nucleated RBC % (auto) 0.0 (0.0-0.2) /100WBC Sodium 135 (135-145) mmol/L Potassium 4.2 (3.3-5.1) mmol/L Chloride 95 L (96-108) mmol/L Carbon Dioxide 25 (22-29) mmol/L Anion Gap 19 (12-20) BUN 16 (9-16) mg/dL Creatinine 1.15 (0.5-1.4) mg/dL Estim Creat Clear Calc 60.4 Estimated GFR 48 Random Glucose 357 H* (60-115) mg/dL Calcium 9.7 (8.4-10.2) mg/dL Magnesium 1.5 L (1.6-2.6) mg/dL Total Bilirubin 0.6 (0.0-1.0) mg/dL AST 13 (5-31) U/L ALT 18 (0-31) U/L Alkaline Phosphatase 95 (39-117) U/L Total Protein 5.9 L (6.5-8.0) g/dL Albumin 3.5 (3.5-5.0) g/dL Urine Color Yellow Urine Appearance Clear Urine pH 7.0 (5.0-9.0) Ur Specific [place] 1.015 (1.005-1.025) Urine Protein Negative (Neg-Trace) mg/dL Urine Glucose (UA) >=1000 H (Negative) mg/dL Urine Ketones Negative (Negative) mg/dL Urine Blood Negative (Negative) Urine Nitrite Negative (Negative) Ur Leukocyte Esterase Moderate (2+) H (Negative) Urine RBC 0-2 (0-2) /HPF Urine WBC >50 H (0-5) /HPF Ur Squamous Epith Cells 6-10 (0-2) /HPF Urine Bacteria None Seen (None Seen) Hyaline Casts 0-2 (0-2) /LPF Urine Opiates Screen (Not Detect) Urine Fentanyl Screen (Not Detect) Ur Barbiturates Screen (Not Detect) Ur Phencyclidine Scrn (Not Detect) Ur Amphetamines Screen (Not Detect) U Benzodiazepines Scrn (Not Detect) Urine Cocaine Screen (Not Detect) U Marijuana (THC) Screen (Not Detect) Ethyl Alcohol < 10 mg/dL 06/07/22 Range/Units 01:37 WBC (4.8-10.8) X10*3/uL RBC (4.20-5.50) X10*6/uL Hgb (12.0-16.0) g/dl Hct (37.0-47.0) % MCV (80.0-98.0) fL MCH (27.0-33.0) pg MCHC (31.0-35.0) g/dl RDW (11.0-16.0) % Plt Count (160-400) X10*3/uL MPV (9.4-12.3) fL Immature Gran % (Auto) (0.0-0.4) % Neut % (Auto) (45-73) % Lymph % (Auto) (20-40) % [place] % (Auto) (2-11) % Eos % (Auto) (0-4) % Baso % (Auto) (0-2) % Lymph # (Auto) (1.2-4.9) X10*3/uL [place] # (Auto) (0.1-1.2) X10*3/uL Eos # (Auto) (0.0-0.4) X10*3/uL Baso # (Auto) (0.0-0.2) X10*3/uL Abs Immat Gran (auto) (0.00-0.03) X10*3/uL Absolute Neuts (auto) (2.0-8.3) x10*3/uL Absolute Nucleated RBC (0.0-0.012) X10*3/uL Nucleated RBC % (auto) (0.0-0.2) /100WBC Sodium (135-145) mmol/L Potassium (3.3-5.1) mmol/L Chloride (96-108) mmol/L Carbon Dioxide (22-29) mmol/L Anion Gap (12-20) BUN (9-16) mg/dL Creatinine (0.5-1.4) mg/dL Estim Creat Clear Calc Estimated GFR Random Glucose (60-115) mg/dL Calcium (8.4-10.2) mg/dL Magnesium (1.6-2.6) mg/dL Total Bilirubin (0.0-1.0) mg/dL AST (5-31) U/L ALT (0-31) U/L Alkaline Phosphatase (39-117) U/L Total Protein (6.5-8.0) g/dL Albumin (3.5-5.0) g/dL Urine Color Urine Appearance Urine pH (5.0-9.0) Ur Specific [place] (1.005-1.025) Urine Protein (Neg-Trace) mg/dL Urine Glucose (UA) (Negative) mg/dL Urine Ketones (Negative) mg/dL Urine Blood (Negative) Urine Nitrite (Negative) Ur Leukocyte Esterase (Negative) Urine RBC (0-2) /HPF Urine WBC (0-5) /HPF Ur Squamous Epith Cells (0-2) /HPF Urine Bacteria (None Seen) Hyaline Casts (0-2) /LPF Urine Opiates Screen Not Detected (Not Detect) Urine Fentanyl Screen POSITIVE H (Not Detect) Ur Barbiturates Screen Not Detected (Not Detect) Ur Phencyclidine Scrn Not Detected (Not Detect) Ur Amphetamines Screen Not Detected (Not Detect) U Benzodiazepines Scrn Not Detected (Not Detect) Urine Cocaine Screen Not Detected (Not Detect) U Marijuana (THC) Screen Not Detected (Not Detect) Ethyl Alcohol mg/dL Discharge Plan Discharge Clinical Impression: Fentanyl use disorder, severe, Acute hyperglycemia, UTI (urinary tract infection) Patient Disposition: Home, Self-Care Prescriptions: No Action aspirin 81 mg Tablet,Delayed Release (Dr/Ec) 81 mg PO DAILY Qty: 30 0RF levofloxacin 750 mg tablet 750 mg PO DAILY Qty: 7 0RF polyethylene glycol 3350 [Miralax] 17 gram/dose powder 17 g PO DAILY Qty: 119 0RF lorazepam 0.5 mg Tablet 0.5 mg PO DAILY metformin 1,000 mg tablet 1,000 mg PO BIDWM multivitamin Tablet 1 tab PO DAILY atorvastatin 20 mg tablet 20 mg PO DAILY Januvia 100 mg tablet 100 tab PO BEDTIME quetiapine 200 mg tablet 1 tab PO BEDTIME hydralazine 25 mg tablet 1 tab PO TID clonidine HCl 0.2 mg tablet 1 tab PO TID PRN (Reason: Anxiety) pregabalin 100 mg capsule 100 mg PO TID prazosin 1 mg capsule 1 mg PO BEDTIME Protocol: Hold for SBP< HOLD for SBP < : 90 clonazepam 0.5 mg tablet 1 tab PO DAILY PRN (Reason: panic attack) haloperidol 1 mg tablet 1 mg PO TID lisinopril 30 mg tablet 1 tab PO DAILY polyethylene glycol 3350 17 gram/dose powder 17 g PO DAILY haloperidol 2 mg tablet 1 tab PO TID
[2022-06-07 01:42] LABS: MANUAL DIFF FLAG NO
[2022-06-07] MEDS: Insulin Lispro 100 UNIT/ML 3 ML VIAL 14 UNIT SUBCUT (01:42)
[2022-06-07] MEDS: 0.9 % Sodium Chloride 1,000 ML 999 ML IV (01:42)
[2022-06-07 01:44] LABS: Basophils Absolute Auto 0.1 X10*3/uL (0.0-0.2); Basophils Percent Auto 0.5 % (0-2); Eosinophils Absolute Auto 0.2 X10*3/uL (0.0-0.4); Eosinophils Percent Auto 1.1 % (0-4); Hematocrit 38.7 % (37.0-47.0); Hemoglobin 12.9 g/dl (12.0-16.0); Imm Gran Abs Auto 0.05 X10*3/uL (0.00-0.03); Imm Gran Pct Auto 0.3 % (0.0-0.4); Lymphocytes Percent Auto 20.2 % (20-40); Mean Corpuscular HGB Conc 33.3 g/dl (31.0-35.0); Mean Corpuscular Hemoglobin 27.4 pg (27.0-33.0); Mean Corpuscular Volume 82.2 fL (80.0-98.0); Mean Platelet Volume 11.1 fL (9.4-12.3); Monocytes Absolute Auto 0.6 X10*3/uL (0.1-1.2); Monocytes Percent Auto 4.1 % (2-11); Neutrophils Percent Auto 73.8 % (45-73); Platelet Count 276 X10*3/uL (160-400); Red Blood Count 4.71 X10*6/uL (4.20-5.50); Red Cell Distribution Width 15.4 % (11.0-16.0); White Blood Count 14.9 X10*3/uL (4.8-10.8)
[2022-06-07 01:45] LABS: Appearance Urine Clear; Color Urine Yellow; Glucose Urine UA >=1000 mg/dL (Negative); Leukocyte Esterase Urine Moderate (2+) (Negative); Nitrite Urine Negative (Negative); Specific Gravity - Urine 1.015 (1.005-1.025); UMIC TRIGGER UACC YES; Urine Blood Negative (Negative); Urine Ketones Negative (Negative); Urine Protein Negative (Neg-Trace)
[2022-06-07 01:52] LABS: Bacteria Urine None Seen (None Seen); Hyaline Casts Urine 0-2 /LPF (0-2); RBC Urine 0-2 /HPF (0-2); UACC Culture Trigger YES; WBC Urine >50 /HPF (0-5)
[2022-06-07 01:54] LABS: Amphetamine Screen Urine Not Detected (Not Detect); Barbiturates, Urine Not Detected (Not Detect); Benzodiazepines Screen Urine Not Detected (Not Detect); Cannabinoid Screen Urine Not Detected (Not Detect); Cocaine Screen Urine Not Detected (Not Detect); Fentanyl, urine POSITIVE (Not Detect); Opiate Screen Urine Not Detected (Not Detect); Phencyclidine Screen Urine Not Detected (Not Detect)
[2022-06-07 02:01] LABS: Alanine Aminotransferase 18 U/L (0-31); Albumin Level 3.5 g/dL (3.5-5.0); Alkaline Phosphatase 95 U/L (39-117); Anion Gap 19 (12-20); Aspartate Amino Transferase 13 U/L (5-31); Bilirubin Total 0.6 mg/dL (0.0-1.0); Blood Urea Nitrogen 16 mg/dL (9-16); Calcium 9.7 mg/dL (8.4-10.2); Carbon Dioxide 25 mmol/L (22-29); Chloride 95 mmol/L (96-108); Creatinine Clr Calc Pharmacy 60.4; Estimated Glomerular Filt Rate 48; Ethanol < 10 mg/dL; Glucose Random 357 mg/dL (60-115); Magnesium 1.5 mg/dL (1.6-2.6); Potassium 4.2 mmol/L (3.3-5.1); Sodium 135 mmol/L (135-145); Total Protein 5.9 g/dL (6.5-8.0)
[2022-06-07 03:14] VITALS: BP 141/61; PULSE 50; RESP 16; TEMP 36.6; O2SAT 97
[2022-06-07] MEDS: Nitrofurantoin Monohyd/M-Cryst 100 MG CAPSULE PO (05:26)
== END 2022-06-07 06:40 | disposition home or self-care (01) ==
PROVIDERS: Emergency Provider Internal Medicine
DX: F11.20 Opioid dependence, uncomplicated (principal); E11.65 Type 2 diabetes mellitus with hyperglycemia; N39.0 Urinary tract infection, site not specified; Z79.84 Long term (current) use of oral hypoglycemic drugs; Z79.899 Other long term (current) drug therapy
CPT/HCPCS: 36415; 80053; 80307; 81001; 82077; 83735; 85025; 87086; 96360; 99284

== ENCOUNTER 2022-06-07 14:57 | Emergency (ER) | payer OTHER, SELFPAY ==
--- NOTE | 2022-06-07 | ECG_ITS ---
Test Reason : overdose Blood Pressure : / mmHG Vent. Rate : 053 BPM Atrial Rate : 053 BPM P-R Int : 168 ms QRS Dur : 096 ms QT Int : 502 ms P-R-T Axes : 031 006 036 degrees QTc Int : 471 ms Sinus bradycardia Otherwise normal ECG When compared with ECG of 09-MAY-2022 20:35, Vent. rate has decreased BY 34 BPM T wave amplitude has increased in Anterior leads Referred By: Robi Ivy Electronically Signed By:LOUISE URRUTIA
--- NOTE | ~2022-06-07 | XR_ITS ---
EXAMINATION: XR CHEST CLINICAL INFORMATION: Reason for Exam fall COMPARISON: Chest radiograph 05/06/2022 TECHNIQUE: One view of the chest FINDINGS: Clear lungs. No pneumothorax or pleural effusion. Normal cardiomediastinal silhouette. Surgical anchors in the right humeral head. No displaced rib fracture appreciated however radiographs have limited sensitivity. XR/XR chest 1V IMPRESSION: * Clear lungs.
--- NOTE | ~2022-06-07 | CT_ITS ---
EXAMINATION: CT CERVICAL SPINE WITHOUT CONTRAST CLINICAL INFORMATION: Neck pain status post fall. COMPARISON: None available. TECHNIQUE: Multiple axial images of the cervical spine were obtained without the administration of intravenous contrast. Coronal and sagittal reformatted images were obtained. This CT examination was performed using dose optimization techniques as appropriate, variously including the following: *Automated exposure control *Adjustment of mA and/or kV according to patient size (this includes techniques or standardized protocols for targeted exams where dose is matched to indication/reason for exam; i.e. extremities or head) *Use of iterative reconstruction technique DLP: 633.46 mGy-cm FINDINGS: There is straightening of the normal cervical lordosis with normal spinal alignment. Mild cervical dextroscoliosis. Mild to moderate degenerative disc disease is seen from C5-C6 to C7-T1, most pronounced at C6-C7 with disc space narrowing and marginal osteophyte formation. The odontoid process is intact with the neural foramina are patent. The facet joints are unremarkable. The spinous processes are intact. The cervical soft tissues are unremarkable. No lymphadenopathy. The thyroid gland is unremarkable. To motion artifact without overt abnormality. CT/CT cervical spine wo IV con IMPRESSION: 1. Straightening of the normal cervical lordosis may be secondary to positioning and/or muscle spasm. Mild cervical dextroscoliosis. 2. Multilevel degenerative changes without acute abnormality.
--- NOTE | ~2022-06-07 | CT_ITS ---
EXAMINATION: CT HEAD WITHOUT CONTRAST CLINICAL INFORMATION: Headache status post trauma. COMPARISON: Head CT scan dated 05/06/2022. TECHNIQUE: Contiguous axial imaging was performed from the skull base to vertex without intravenous administration of contrast. Coronal and sagittal reformatted images were obtained. This CT examination was performed using dose optimization techniques as appropriate, variously including the following: *Automated exposure control *Adjustment of mA and/or kV according to patient size (this includes techniques or standardized protocols for targeted exams where dose is matched to indication/reason for exam; i.e. extremities or head) *Use of iterative reconstruction technique DLP: 888.31 mGy-cm FINDINGS: The cortical sulci are normal. The lateral ventricles are symmetrical. The third and fourth ventricles are in their normal midline position. The basilar and prepontine cisterns are unremarkable. There is no acute intra or extracerebral abnormality. Old right occipital infarct without significant change. There is no mass effect or midline shift. Sections through the bony calvarium are unremarkable. The paranasal sinuses are clear. The bony orbits and orbital contents are unremarkable. CT/CT head/brain wo IV con IMPRESSION: No acute intracranial pathology.
[2022-06-07 15:07] VITALS: BP 80/50; BP 98/53; PULSE 54; PULSE 55; RESP 14; TEMP 36.5; O2SAT 97; O2SAT 98; BMI 31.2
[2022-06-07] MEDS: 0.9 % Sodium Chloride 1,000 ML 999 ML IV (15:22)
[2022-06-07 15:24] LABS: MANUAL DIFF FLAG NO
[2022-06-07 15:25] LABS: Basophils Absolute Auto 0.1 X10*3/uL (0.0-0.2); Basophils Percent Auto 0.6 % (0-2); Eosinophils Absolute Auto 0.1 X10*3/uL (0.0-0.4); Eosinophils Percent Auto 0.3 % (0-4); Hematocrit 42.5 % (37.0-47.0); Hemoglobin 14.1 g/dl (12.0-16.0); Imm Gran Abs Auto 0.06 X10*3/uL (0.00-0.03); Imm Gran Pct Auto 0.4 % (0.0-0.4); Lymphocytes Absolute Auto 2.8 X10*3/uL (1.2-4.9); Lymphocytes Percent Auto 18.2 % (20-40); Mean Corpuscular HGB Conc 33.2 g/dl (31.0-35.0); Mean Corpuscular Hemoglobin 27.8 pg (27.0-33.0); Mean Corpuscular Volume 83.8 fL (80.0-98.0); Mean Platelet Volume 11.5 fL (9.4-12.3); Monocytes Absolute Auto 0.6 X10*3/uL (0.1-1.2); Monocytes Percent Auto 4.2 % (2-11); Neutrophils Absolute Auto 11.7 x10*3/uL (2.0-8.3); Neutrophils Percent Auto 76.3 % (45-73); Platelet Count 282 X10*3/uL (160-400); Red Blood Count 5.07 X10*6/uL (4.20-5.50); Red Cell Distribution Width 15.4 % (11.0-16.0); White Blood Count 15.3 X10*3/uL (4.8-10.8)
[2022-06-07 15:31] LABS: Prothrombin Time 11.9 SEC (10.0-13.1)
[2022-06-07 15:34] LABS: Partial Thromboplastin Time 29.3 SEC (26.0-36.4)
--- NOTE | 2022-06-07 15:44 | PC.NURSE ---
Patient drowsy but easily woken with verbal stimulation. Patient overdosed on her medications today because she wanted to get relief from her back pain. Patient at this time is denying SI.
[2022-06-07 15:50] VITALS: BP 152/66; PULSE 54; RESP 18; O2SAT 98
--- NOTE | 2022-06-07 16:02 | ED_ITS ---
HPI - General Adult General Chief complaint: Overdose Stated complaint: OVERDOSE Time Seen by Provider: 06/07/22 15:06 Source: patient Mode of arrival: EMS Limitations: no limitations History of Present Illness HPI narrative: 57-year-old female presents with an overdose. She took extra clonazepam, clonidine and Ativan earlier today. Patient reportedly did so because she wanted to be able to rest he manage her pain. She had just been discharged earlier for reportedly taking 3 bags of fentanyl, 5 tablets of 5 1 mg of Klonopin. Today, she did fall. She did hit her head. It is unclear whether she lost consciousness and. She denies any significant headache, vision changes, nausea, vomiting. She denies any other significant injuries at this time. She was brought in by EMS. She was noted to be hyperglycemic, hemodynamically stable and hypotensive. Patient adamantly denies suicidal ideation. She took the medications to be relief of pain. Related Data Home Medications Medication Instructions Recorded Confirmed lorazepam 0.5 mg tablet 0.5 mg PO DAILY 07/15/21 06/07/22 metformin 1,000 mg tablet 1,000 mg PO BIDWM 09/03/21 06/07/22 multivitamin 1 tab PO DAILY 09/03/21 06/07/22 atorvastatin 20 mg tablet 20 mg PO DAILY 01/15/22 06/07/22 sitagliptin phosphate 100 mg 100 tab PO BEDTIME 01/15/22 06/07/22 tablet (Januvia) clonidine HCl 0.2 mg tablet 1 tab PO TID PRN Anxiety 03/08/22 06/07/22 hydralazine 25 mg tablet 1 tab PO TID 03/08/22 06/07/22 prazosin 1 mg capsule 1 mg PO BEDTIME 03/08/22 06/07/22 pregabalin 100 mg capsule 100 mg PO TID 03/08/22 06/07/22 quetiapine 200 mg tablet 1 tab PO BEDTIME 03/08/22 06/07/22 clonazepam 0.5 mg tablet 1 tab PO DAILY PRN panic attack 04/06/22 06/07/22 haloperidol 2 mg tablet 1 tab PO TID 04/06/22 06/07/22 lisinopril 30 mg tablet 1 tab PO DAILY 04/06/22 06/07/22 quetiapine 100 mg tablet 100 mg PO BEDTIME 06/07/22 06/07/22 Previous Rx's Medication Instructions Recorded aspirin 81 mg tablet,delayed 81 mg PO DAILY #30 tabs 03/16/22 release polyethylene glycol 3350 17 17 g PO DAILY #119 grams 05/10/22 gram/dose oral powder (Miralax) nitrofurantoin 100 mg PO BID #20 caps 06/07/22 monohydrate/macrocrystals 100 mg capsule (Macrobid) Allergies Allergy/AdvReac Type Severity Reaction Status Date / Time morphine [MORPHINE] Allergy Unknown RASH, vomit Verified 01/15/22 00:48 prednisone Allergy Unknown hives Verified 01/15/22 00:48 Sulfa (Sulfonamide Allergy Unknown UNKNOWN, Verified 01/15/22 00:48 Antibiotics) hives [SULFA (SULFONAMIDE ANTIBIOTICS)] [facility] Past Medical History Medical History Asthma Bipolar disorder Chronic pain Diabetes History of recent stroke Hypertension IBS (irritable bowel syndrome) Opioid use disorder Peripheral neuropathy Polysubstance abuse Seizure Surgical History History of appendectomy Social History Social History Household Members: Friend(s) Household Members Other:: roommate Housing: Unknown / Unable to assess Do you presently have visiting nurse or other home services: No Unable to assess alcohol history related to: Unable to respond Alcohol intake: never Patient Tobacco Use Status: Refuse Tobacco use screen Tobacco use type: Cigarette Cigarette Packs Per Day: 1 Cigarettes Per Day: 20.0 Smoked in Last 30 Days: Yes Use of substances other than those prescribed or required for medical reasons: No Substance Use Type: Opiates Advance Directives: Yes Advance Directives on File: Yes Advance Directives Date on File: 09/03/21 service: No Current occupational status: disabled Physical Exam ED Vital Signs: Vital Signs - 24 hr 06/07/22 15:07 06/07/22 15:50 Temperature 97.7 F Pulse Rate 55 54 Respiratory Rate 14 18 Blood Pressure 98/53 L 152/66 H Pulse Oximetry 97 98 Oxygen Delivery Method Room Air BMI result Body Mass Index 31.2 GEN: Well developed, no acute distress, alert, somnolent, slurred speech HEENT: normal external ears, nose appears normal, no oropharyngeal edema or exudates Eyes: Normal to appearance Neck: Supple, no lymphadenopathy Respiratory: Talks in complete sentences, no respiratory distress, clear to auscultation bilaterally Cardiovascular: Regular rate and rhythm, no murmurs rubs or gallops Abdomen: Soft, nontender, nondistended, no guarding, no rebound Back: No CVA tenderness Extremities: No clubbing cyanosis or edema Neurologic: No focal neurologic deficits, cranial nerves 2-12 intact, strength is 5/5 bilaterally Skin: No rash Course Course Course Narrative: Patient presents for the 2nd time in less than 24 hours with intentionally taking more medication than she ought to but not doing so for suicidal or homicidal ideation. At this point, patient will be need to be medically cleared. She will need a CT scan of the head and neck given fall and head injury. She will need to be observed pending improvement in her mental status. Subsequent to that, patient will likely need a case management. Reevaluation(s) Reevaluation #1: Patient's workup has been initiated. Patient will be signed out to the oncoming ED provider. Disposition pending. Will order care team evaluation. Time: 16:32 Medications Administered Discontinued Medications Generic Name Dose Route Start Last Admin Trade Name Freq PRN Reason Stop Dose Admin Sodium Chloride 1,000 mls @ 999 mls/hr 06/07/22 15:15 06/07/22 15:22 Ns IV 06/07/22 16:15 999 mls/hr .Q1H1M SARMAD Administration Medical Decision Making Medical Decision Making [facility] Narrative: 57-year-old female presents with an intentional overdose to manage her symptoms. She did not intend to harm herself. She repeated this several times. She was here earlier for similar presentation. My evaluation, there is evidence of a fall. She has no focal neurologic deficits. She has slurred speech. Will obtain CT scan of the head neck to rule out acute traumatic injury. Additionally, lab work will be obtained tried additional medications that she yaquelin reese have taken. Will order case management consultation. Differential Diagnosis Differential Diagnoses: The differential diagnosis associated with the presentation includes (Accidental overdose, over medication, medication noncompliance, psychiatric disorder, metabolic disorder, encephalopathy) Overdose Admission/Observation Consideration of admission/observation: Escalation of care including admission/observation considered Consult Healthcare Provider Management of the patient was discussed with: Dross Skimmer Lab Data [facility] Lab Attestation statement: I reviewed the patient's lab results. 06/07/22 15:17 06/07/22 15:17 Labs: Lab Results 06/07/22 06/07/22 06/07/22 Range/Units 15:17 15:17 16:24 WBC 15.3 H (4.8-10.8) X10*3/uL RBC 5.07 (4.20-5.50) X10*6/uL Hgb 14.1 (12.0-16.0) g/dl Hct 42.5 (37.0-47.0) % MCV 83.8 (80.0-98.0) fL MCH 27.8 (27.0-33.0) pg MCHC 33.2 (31.0-35.0) g/dl RDW 15.4 (11.0-16.0) % Plt Count 282 (160-400) X10*3/uL MPV 11.5 (9.4-12.3) fL Immature Gran % (Auto) 0.4 (0.0-0.4) % Neut % (Auto) 76.3 H (45-73) % Lymph % (Auto) 18.2 L (20-40) % [place] % (Auto) 4.2 (2-11) % Eos % (Auto) 0.3 (0-4) % Baso % (Auto) 0.6 (0-2) % Lymph # (Auto) 2.8 (1.2-4.9) X10*3/uL [place] # (Auto) 0.6 (0.1-1.2) X10*3/uL Eos # (Auto) 0.1 (0.0-0.4) X10*3/uL Baso # (Auto) 0.1 (0.0-0.2) X10*3/uL Abs Immat Gran (auto) 0.06 H (0.00-0.03) X10*3/uL Absolute Neuts (auto) 11.7 H (2.0-8.3) x10*3/uL Absolute Nucleated RBC 0.000 (0.0-0.012) X10*3/uL Nucleated RBC % (auto) 0.0 (0.0-0.2) /100WBC PT 11.9 (10.0-13.1) SEC INR 1.0 (0.9-1.1) APTT 29.3 (26.0-36.4) SEC POC Glucose 306 H (60-115) mg/dL Independent Interpretation I performed an independent interpretation of an: EKG and CT Scan Radiology Impression Discussion of test interpretation with radiology: I have reviewed the radiologist's reading. Independent Historian Clinical information obtained from an independent historian. History obtained from or confirmed by: EMS Prescription Management I considered prescription management with: Other (narcan) Discharge Plan Discharge Clinical Impression: Overdose Patient Disposition: Still a Patient Prescriptions: No Action aspirin 81 mg Tablet,Delayed Release (Dr/Ec) 81 mg PO DAILY Qty: 30 0RF polyethylene glycol 3350 [Miralax] 17 gram/dose powder 17 g PO DAILY Qty: 119 0RF lorazepam 0.5 mg Tablet 0.5 mg PO DAILY metformin 1,000 mg tablet 1,000 mg PO BIDWM multivitamin Tablet 1 tab PO DAILY atorvastatin 20 mg tablet 20 mg PO DAILY Januvia 100 mg tablet 100 tab PO BEDTIME quetiapine 200 mg tablet 1 tab PO BEDTIME hydralazine 25 mg tablet 1 tab PO TID clonidine HCl 0.2 mg tablet 1 tab PO TID PRN (Reason: Anxiety) pregabalin 100 mg capsule 100 mg PO TID prazosin 1 mg capsule 1 mg PO BEDTIME Protocol: Hold for SBP< HOLD for SBP < : 90 clonazepam 0.5 mg tablet 1 tab PO DAILY PRN (Reason: panic attack) lisinopril 30 mg tablet 1 tab PO DAILY haloperidol 2 mg tablet 1 tab PO TID quetiapine 100 mg tablet 100 mg PO BEDTIME nitrofurantoin monohyd/m-cryst [Macrobid] 100 mg capsule 100 mg PO BID Qty: 20 0RF Rx Instructions: must administer with a meal/food
[2022-06-07 16:27] LABS: Glucose, Whole Blood 306 mg/dL (60-115)
--- NOTE | 2022-06-07 16:33 | MHC.CM.ED ---
Received consult from Dr. Ivy. Pt has substance abuse issues and SI. CM explained to Dr. Ivy that the Care Team/Recovery Team should be consulted. If there are concerns about safe discharge planning, then CM is more that happy to see patient. Dr. Ivy will consult CARE TEAM.
--- NOTE | 2022-06-07 16:33 | PHA.MEDREC ---
Pharmacy Consult ? Medication Reconciliation Pharmacy has completed the medication reconciliation. Patient still drowsy. Patient james great historian, patient state yes to all medications. She is unsure of Seroquel dose, both 200 mg tablets and 100 mg tablets were filled on the same day but states she only takes one dose. Kept the 200 mg tablets as this was the dose she was on last time she was here. Fifi Sage, PharmD
--- NOTE | 2022-06-07 18:15 | HO.SUDE ---
ED Provider consulted CARE Team for SUDE. Dr. Walsh states this is pt's second time here today and pt has overdosed on medications. Is medically cleared at this time, denying SI. Pt is well known to ED, ED provider comfortable with pt returning home, reports this is a SUDE not a crisis. Pt also denies SI to this advertising copy writer, reports she was just discharged from IP and wants to go home to her boyfriend and cats. Pt reports that she ingested mediations with no suicidal intent.
--- NOTE | 2022-06-07 19:00 | PC.NURSE ---
Care team able to get Lift for patient. Patient given discharge information and brought to waiting room to wait for Lift.
[2022-06-07] MEDS: Naloxone HCl Nasal TAKE HOME 4 MG SPRAY NOSTRILALT (19:03)
== END 2022-06-07 19:12 | disposition home or self-care (01) ==
PROVIDERS: Emergency Medicine; Emergency Provider Emergency Medicine Emergency Medical Services
DX: T42.4X1A Poisoning by benzodiazepines, accidental (unintentional), initial encounter (principal); T46.5X1A Poisoning by other antihypertensive drugs, accidental (unintentional), initial encounter; M54.2 Cervicalgia; R51.9 Headache, unspecified; R06.02 Shortness of breath; Y92.9 Unspecified place or not applicable; F17.200 Nicotine dependence, unspecified, uncomplicated; Z71.6 Tobacco abuse counseling; Z79.899 Other long term (current) drug therapy
CPT/HCPCS: 36415; 70450; 71045; 72125; 82947; 85025; 85610; 85730; 93005; 96360; 96361; 99284; 99285

== ENCOUNTER 2022-06-11 14:04 | Emergency (ER) | payer OTHER, SELFPAY ==
[2022-06-11 14:16] VITALS: BP 135/63; PULSE 92; RESP 18; TEMP 36.4; O2SAT 96; BMI 33.0
--- NOTE | 2022-06-11 14:26 | ED.GENADULT ---
HPI - General Adult General Chief complaint: General Medical Stated complaint: STROKE ALERT,? UNDER INFLUENCE,UNK LKWT,-THINNERS Time Seen by Provider: 06/11/22 14:18 Source: patient and EMS Mode of arrival: EMS Limitations: no limitations History of Present Illness HPI narrative: 57-year-old female with a history of chronic peripheral neuropathy, diabetes presents with a period of unresponsiveness. Patient reports having taken a Percocet earlier in the day and then took a 2nd 1. She is not sure exactly what happened but denies any chest pain, shortness breath, palpitations, lightheadedness of breath. EMS was contacted, they provided her with Narcan 0.4 mg to which she became responsive and apparently at her baseline status. Patient does not want have any workup done. She would like to leave at this time. She denies any significant symptoms. She reports having Narcan at home and knows how to use it. She does report having fallen a couple days ago, hitting her head. She denied loss of consciousness. She denies any significant headache, nausea, vomiting, vision changes. Again, patient does not wish to have a CT scan of the head to rule out intracranial injury. Related Data Home Medications Medication Instructions Recorded Confirmed lorazepam 0.5 mg tablet 0.5 mg PO DAILY 07/15/21 06/07/22 metformin 1,000 mg tablet 1,000 mg PO BIDWM 09/03/21 06/07/22 multivitamin 1 tab PO DAILY 09/03/21 06/07/22 atorvastatin 20 mg tablet 20 mg PO DAILY 01/15/22 06/07/22 sitagliptin phosphate 100 mg 100 tab PO BEDTIME 01/15/22 06/07/22 tablet (Januvia) clonidine HCl 0.2 mg tablet 1 tab PO TID PRN Anxiety 03/08/22 06/07/22 hydralazine 25 mg tablet 1 tab PO TID 03/08/22 06/07/22 prazosin 1 mg capsule 1 mg PO BEDTIME 03/08/22 06/07/22 pregabalin 100 mg capsule 100 mg PO TID 03/08/22 06/07/22 quetiapine 200 mg tablet 1 tab PO BEDTIME 03/08/22 06/07/22 clonazepam 0.5 mg tablet 1 tab PO DAILY PRN panic attack 04/06/22 06/07/22 haloperidol 2 mg tablet 1 tab PO TID 04/06/22 06/07/22 lisinopril 30 mg tablet 1 tab PO DAILY 04/06/22 06/07/22 polyethylene glycol 3350 17 17 g PO DAILY PRN Constipation 06/07/22 06/07/22 gram/dose oral powder (Miralax) Previous Rx's Medication Instructions Recorded aspirin 81 mg tablet,delayed 81 mg PO DAILY #30 tabs 03/16/22 release nitrofurantoin 100 mg PO BID #20 caps 06/07/22 monohydrate/macrocrystals 100 mg capsule (Macrobid) Allergies Allergy/AdvReac Type Severity Reaction Status Date / Time morphine [MORPHINE] Allergy Unknown RASH, vomit Verified 01/15/22 00:48 prednisone Allergy Unknown hives Verified 01/15/22 00:48 Sulfa (Sulfonamide Allergy Unknown UNKNOWN, Verified 01/15/22 00:48 Antibiotics) hives [SULFA (SULFONAMIDE ANTIBIOTICS)] [facility] Past Medical History Medical History Asthma Bipolar disorder Chronic pain Diabetes History of recent stroke Hypertension IBS (irritable bowel syndrome) Opioid use disorder Peripheral neuropathy Polysubstance abuse Seizure Surgical History History of appendectomy Social History Social History Household Members: Friend(s) Household Members Other:: roommate Housing: Unknown / Unable to assess Do you presently have visiting nurse or other home services: No Unable to assess alcohol history related to: Unable to respond Alcohol intake: never Patient Tobacco Use Status: Refuse Tobacco use screen Tobacco use type: Cigarette Cigarette Packs Per Day: 1 Cigarettes Per Day: 20.0 Smoked in Last 30 Days: No Use of substances other than those prescribed or required for medical reasons: Yes Substance Use Type: Opiates Advance Directives Date on File: 09/03/21 Patient : No service: No Current occupational status: disabled Physical Exam ED Vital Signs: Vital Signs - 24 hr 06/11/22 14:16 Temperature 97.6 F Pulse Rate 92 Respiratory Rate 18 Blood Pressure 135/63 Pulse Oximetry 96 Oxygen Delivery Method Room Air BMI result Body Mass Index 33.0 GEN: Well developed, no acute distress, alert, oriented HEENT: Mild right periorbital ecchymoses and he forehead hematoma, old, normal external ears, nose appears normal, no oropharyngeal edema or exudates Eyes: Normal to appearance Neck: Supple, no lymphadenopathy Respiratory: Talks in complete sentences, no respiratory distress, clear to auscultation bilaterally Cardiovascular: Regular rate and rhythm, no murmurs rubs or gallops Abdomen: Soft, nontender, nondistended, no guarding, no rebound Back: No CVA tenderness Extremities: No clubbing cyanosis or edema Neurologic: No focal neurologic deficits, cranial nerves 2-12 intact, strength is 5/5 bilaterally, shuffling gait to which patient reports has normal given her neuropathy Skin: No rash Course Course Course Narrative: 57-year-old female with chronic neuropathic pain presents with a period of unresponsiveness. Narcan had to be used in order to revive her appropriately. Patient is alert, oriented, appropriate. She denies any suicidal homicidal ideation. She appears to have decision making capacity. She does not wish to have any further evaluation such as CT scan for recent head injury, laboratory analysis or even observation to make sure she is safe to go home. Patient is aware of the risks of going home which include return to her previous somnolent to the lethargic state, need for repeat use of Narcan, risk of hypercarbia and hypoxic respiratory failure which could cause permanent disability. She is aware that should such symptoms recur, is another possible outcome. Despite this, patient still wishes to be discharged. She is able to express thoroughly with the risks are. She understands the benefits of staying. She is also aware she may return for worsening or recurrent symptoms. Medical Decision Making Medical Decision Making [facility] Narrative: Patient presents with a period of unresponsiveness which responded to Narcan. Patient does take Percocet. She admits to taking extra Percocet today. She denies any other alcohol or drug abuse. She denies suicidal homicidal ideation. She wishes to be discharged at this time. She will sign out against medical advice. She does not want any imaging studies of her head despite having had a recent injury and fall. Patient appears to have decision making capacity at this time and will be discharged accordingly. Differential Diagnosis Differential Diagnoses: The differential diagnosis associated with the presentation includes (Opioid abuse, syncope, trauma, head injury, intracranial bleeding) Lab Data MDM Lab Attestation statement: I reviewed the patient's lab results. (Refused) Independent Interpretation I performed an independent interpretation of an: EKG (Refused) and CT Scan (Refused) Independent Historian Clinical information obtained from an independent historian. History obtained from or confirmed by: EMS Chronic Conditions Patient?s care impacted by: Diabetes Discharge Plan Discharge Clinical Impression: Overdose Patient Disposition: Left Against Medical Advice Instructions: Adult Overdose (ED) Additional Instructions: You were seen today for accidental overdose on Percocet. We recommended observation for at least a couple hours. Additionally, he fell a couple days ago and hit her head. We recommended imaging studies to rule out acute intracranial injury especially given your recent clinical presentation. You reported to me that she have Narcan at home. Please let those around you know how to utilize this medication in case of an accidental overdose. If at any time you feel like you would like to be re-evaluated in the emergency department, please come immediately for re-evaluation. Prescriptions: No Action aspirin 81 mg Tablet,Delayed Release (Dr/Ec) 81 mg PO DAILY Qty: 30 0RF lorazepam 0.5 mg Tablet 0.5 mg PO DAILY metformin 1,000 mg tablet 1,000 mg PO BIDWM multivitamin Tablet 1 tab PO DAILY atorvastatin 20 mg tablet 20 mg PO DAILY Januvia 100 mg tablet 100 tab PO BEDTIME quetiapine 200 mg tablet 1 tab PO BEDTIME hydralazine 25 mg tablet 1 tab PO TID clonidine HCl 0.2 mg tablet 1 tab PO TID PRN (Reason: Anxiety) pregabalin 100 mg capsule 100 mg PO TID prazosin 1 mg capsule 1 mg PO BEDTIME Protocol: Hold for SBP< HOLD for SBP < : 90 clonazepam 0.5 mg tablet 1 tab PO DAILY PRN (Reason: panic attack) lisinopril 30 mg tablet 1 tab PO DAILY haloperidol 2 mg tablet 1 tab PO TID polyethylene glycol 3350 [Miralax] 17 gram/dose powder 17 g PO DAILY PRN (Reason: Constipation) nitrofurantoin monohyd/m-cryst [Macrobid] 100 mg capsule 100 mg PO BID Qty: 20 0RF Rx Instructions: must administer with a meal/food [place] [facility] [place]] Stand Alone Forms: Against Medical Advice
== END 2022-06-11 14:59 | disposition left against medical advice (07) ==
LOC: HO.ED 14:32
PROVIDERS: Emergency Provider Emergency Medicine
DX: T40.2X1D Poisoning by other opioids, accidental (unintentional), subsequent encounter (principal); T40.2X1A Poisoning by other opioids, accidental (unintentional), initial encounter; Y92.9 Unspecified place or not applicable; Z79.899 Other long term (current) drug therapy; F17.210 Nicotine dependence, cigarettes, uncomplicated; Z71.6 Tobacco abuse counseling
CPT/HCPCS: 99282; 99284

== ENCOUNTER 2022-06-15 10:36 | Emergency (ER) | payer OTHER, SELFPAY ==
--- NOTE | 2022-06-15 | ECG_ITS ---
Test Reason : chest pain Blood Pressure : / mmHG Vent. Rate : 073 BPM Atrial Rate : 073 BPM P-R Int : 142 ms QRS Dur : 088 ms QT Int : 414 ms P-R-T Axes : 020 013 027 degrees QTc Int : 456 ms Normal sinus rhythm Normal ECG When compared with ECG of 07-JUN-2022 15:07, T wave amplitude has decreased in Anterior leads Referred By: Generic ED Physician Electronically Signed By:Jeffrey Harrington
[2022-06-15 11:04] VITALS: BP 93/43; PULSE 83; RESP 18; TEMP 36.6; O2SAT 96; BMI 33.0
[2022-06-15 12:05] LABS: COVID-19 Test Negative (Negative); IDNOW Serial# BCCEAD1C
--- NOTE | 2022-06-15 12:18 | ED.GENADULT ---
HPI - General Adult General Chief complaint: Psychiatric Symptoms Stated complaint: crisis Time Seen by Provider: 06/15/22 11:22 Source: patient Mode of arrival: ambulatory Limitations: no limitations History of Present Illness HPI narrative: 49-year-old female presents requesting detox. She has been using opioids for about a year. She denies any drug use or alcohol use. She does have some passive suicidal ideation but no active plan. She does not wish to harm herself or others which is why she presents to the emergency department. Patient describes her symptoms as severe. There is no clear relieving or exacerbating features. Her symptoms are associated with depression and anxiety. Additionally, patient has been complaining of 1 day of chest pain. The pain is sharp in nature. It is substernal. It does not radiate. It is worse with eating and better without eating. She denies any chest pain with exertion, orthopnea, PND or lower extremity edema. Related Data Home Medications Medication Instructions Recorded Confirmed lorazepam 0.5 mg tablet 0.5 mg PO DAILY 07/15/21 06/15/22 metformin 1,000 mg tablet 1,000 mg PO BIDWM 09/03/21 06/15/22 multivitamin 1 tab PO DAILY 09/03/21 06/15/22 atorvastatin 20 mg tablet 20 mg PO DAILY 01/15/22 06/15/22 sitagliptin phosphate 100 mg 100 mg PO BEDTIME 01/15/22 06/15/22 tablet (Januvia) clonidine HCl 0.2 mg tablet 1 tab PO TID PRN Anxiety 03/08/22 06/15/22 hydralazine 25 mg tablet 1 tab PO TID 03/08/22 06/15/22 prazosin 1 mg capsule 1 mg PO BEDTIME 03/08/22 06/15/22 pregabalin 100 mg capsule 100 mg PO TID 03/08/22 06/15/22 quetiapine 200 mg tablet 1 tab PO BEDTIME 03/08/22 06/15/22 clonazepam 0.5 mg tablet 1 tab PO DAILY PRN panic attack 04/06/22 06/15/22 haloperidol 2 mg tablet 1 tab PO TID 04/06/22 06/15/22 lisinopril 30 mg tablet 1 tab PO DAILY 04/06/22 06/15/22 polyethylene glycol 3350 17 17 g PO DAILY PRN Constipation 06/07/22 06/07/22 gram/dose oral powder (Miralax) Previous Rx's Medication Instructions Recorded aspirin 81 mg tablet,delayed 81 mg PO DAILY #30 tabs 03/16/22 release nitrofurantoin 100 mg PO BID #20 caps 06/07/22 monohydrate/macrocrystals 100 mg capsule (Macrobid) Allergies Allergy/AdvReac Type Severity Reaction Status Date / Time morphine [MORPHINE] Allergy Unknown RASH, vomit Verified 01/15/22 00:48 prednisone Allergy Unknown hives Verified 01/15/22 00:48 Sulfa (Sulfonamide Allergy Unknown UNKNOWN, Verified 01/15/22 00:48 Antibiotics) hives [SULFA (SULFONAMIDE ANTIBIOTICS)] [facility] Past Medical History Medical History Asthma Bipolar disorder Chronic pain Diabetes History of recent stroke Hypertension IBS (irritable bowel syndrome) Opioid use disorder Peripheral neuropathy Polysubstance abuse Seizure Surgical History History of appendectomy Social History Social History Household Members: Friend(s) Household Members Other:: roommate Housing: Unknown / Unable to assess Do you presently have visiting nurse or other home services: No Unable to assess alcohol history related to: Unable to respond Alcohol intake: never Patient Tobacco Use Status: Refuse Tobacco use screen Tobacco use type: Cigarette Cigarette Packs Per Day: 1 Cigarettes Per Day: 20.0 Smoked in Last 30 Days: Yes Use of substances other than those prescribed or required for medical reasons: Yes Substance Use Type: Heroin Last Used Substance: Days (ago) Advance Directives: Yes Advance Directives on File: Yes Advance Directives Date on File: 09/03/21 service: No Current occupational status: disabled Physical Exam ED Vital Signs: Vital Signs - 24 hr 06/15/22 11:04 06/15/22 13:18 06/15/22 14:30 Temperature 97.9 F 98.5 F Pulse Rate 83 67 68 Respiratory Rate 18 16 16 Blood Pressure 93/43 L 123/57 L 114/65 Pulse Oximetry 96 98 98 Oxygen Delivery Method Room Air Room Air Room Air 06/15/22 14:46 Temperature Pulse Rate 80 Respiratory Rate 16 Blood Pressure 141/63 H Pulse Oximetry 97 Oxygen Delivery Method Room Air BMI result Body Mass Index 33.0 GEN: Well developed, no acute distress, alert, oriented HEENT: Normocephalic, atraumatic, normal external ears, nose appears normal, no oropharyngeal edema or exudates Eyes: Normal to appearance Neck: Supple, no lymphadenopathy Respiratory: Talks in complete sentences, no respiratory distress, clear to auscultation bilaterally Cardiovascular: Regular rate and rhythm, no murmurs rubs or gallops Abdomen: Soft, nontender, nondistended, no guarding, no rebound Back: No CVA tenderness Extremities: No clubbing cyanosis or edema Neurologic: No focal neurologic deficits, cranial nerves 2-12 intact, strength is 5/5 bilaterally, gait normal Skin: No rash Course Course Course Narrative: 57-year-old female with opioid abuse presents with depression, anxiety, polysubstance abuse, passive SI and some chest discomfort. Patient will be evaluated by our crisis/care team. Her chest pain is atypical for cardiac symptoms. Is most consistent with an esophageal etiologies such as esophageal spasm, GERD, etc.. Her chest pain is not associated with exertion. He EKG is nonischemic appearing. Will medically clear patient and re-evaluate patient pending crisis and care team evaluation. Reevaluation(s) Reevaluation #1: patient had a mechanical fall. Did hit head with no LOC. No headache,nausea, vomiting, focal deficits. Patient will let us know if she develops any significant symptoms Time: 15:28 Reevaluation #2: Patient is pending crisis/care team eval. Signed out to oncoming provider. Time: 16:00 Medications Administered Generic Name Dose Route Start Last Admin Trade Name Sheila PRN Reason Stop Dose Admin Atorvastatin Calcium 20 mg 06/15/22 14:15 06/15/22 14:14 Atorvastatin Calcium 20 Mg Tablet PO Not Given DAILY SARMAD Haloperidol 2 mg 06/15/22 15:00 06/15/22 14:35 Haloperidol 1 Mg Tablet PO 2 mg TID SARMAD Administration Hydralazine HCl 25 mg 06/15/22 15:00 06/15/22 14:34 Hydralazine Hcl 25 Mg Tablet PO 25 mg TID SARMAD Administration Protocol Lisinopril 30 mg 06/15/22 15:00 06/15/22 14:24 Lisinopril 10 Mg Tablet PO Not Given DAILY SARMAD Protocol Lorazepam 0.5 mg 06/15/22 14:15 06/15/22 14:15 Lorazepam 0.5 Mg Tablet PO Not Given DAILY [facility] Multivitamins/Vitamin C 1 tab 06/15/22 14:15 06/15/22 14:15 Multivitamin Tablet PO Not Given DAILY [facility] Pregabalin 100 mg 06/15/22 15:00 06/15/22 14:34 Pregabalin 100 Mg Capsule PO 100 mg TID [facility] Administration Medical Decision Making Medical Decision Making [facility] Narrative: 57-year-old female with opioid abuse presents with depression, anxiety, polysubstance abuse, passive SI and some chest discomfort. Patient will be evaluated by our crisis/care team. Her chest pain is atypical for cardiac symptoms. Is most consistent with an esophageal etiologies such as esophageal spasm, GERD, etc.. Her chest pain is not associated with exertion. He EKG is nonischemic appearing. Will medically clear patient and re-evaluate patient pending crisis and care team evaluation. Differential Diagnosis Differential Diagnoses: The differential diagnosis associated with the presentation includes (Depression, anxiety, PTSD, mood disorder, substance abuse, adjustment disorder, chest pain, atypical chest pain, cardiac chest pain, GERD, esophageal spasm) Substance abuse, atypical chest pain Admission/Observation Consideration of admission/observation: Escalation of care including admission/observation considered Lab Data [facility] Lab Attestation statement: I reviewed the patient's lab results. 06/15/22 13:43 06/15/22 13:43 Labs: Lab Results 06/15/22 06/15/22 06/15/22 Range/Units 11:22 13:17 13:17 WBC (4.8-10.8) X10*3/uL RBC (4.20-5.50) X10*6/uL Hgb (12.0-16.0) g/dl Hct (37.0-47.0) % MCV (80.0-98.0) fL MCH (27.0-33.0) pg MCHC (31.0-35.0) g/dl RDW (11.0-16.0) % Plt Count (160-400) X10*3/uL MPV (9.4-12.3) fL Immature Gran % (Auto) (0.0-0.4) % Neut % (Auto) (45-73) % Lymph % (Auto) (20-40) % Bowie % (Auto) (2-11) % Eos % (Auto) (0-4) % Baso % (Auto) (0-2) % Lymph # (Auto) (1.2-4.9) X10*3/uL Bowie # (Auto) (0.1-1.2) X10*3/uL Eos # (Auto) (0.0-0.4) X10*3/uL Baso # (Auto) (0.0-0.2) X10*3/uL Abs Immat Gran (auto) (0.00-0.03) X10*3/uL Absolute Neuts (auto) (2.0-8.3) x10*3/uL Absolute Nucleated RBC (0.0-0.012) X10*3/uL Nucleated RBC % (auto) (0.0-0.2) /100WBC Sodium (135-145) mmol/L Potassium (3.3-5.1) mmol/L Chloride (96-108) mmol/L Carbon Dioxide (22-29) mmol/L Anion Gap (12-20) BUN (9-16) mg/dL Creatinine (0.5-1.4) mg/dL Estim Creat Clear Calc Estimated GFR Random Glucose (60-115) mg/dL Calcium (8.4-10.2) mg/dL Total Bilirubin (0.0-1.0) mg/dL AST (5-31) U/L ALT (0-31) U/L Alkaline Phosphatase (39-117) U/L Total Protein (6.5-8.0) g/dL Albumin (3.5-5.0) g/dL Urine Color Yellow Urine Appearance Cloudy Urine pH 5.0 (5.0-9.0) Ur Specific [place] 1.015 (1.005-1.025) Urine Protein 30 (1+) H (Neg-Trace) mg/dL Urine Glucose (UA) >=1000 H (Negative) mg/dL Urine Ketones Negative (Negative) mg/dL Urine Blood Negative (Negative) Urine Nitrite Negative (Negative) Ur Leukocyte Esterase Small (1+) H (Negative) Urine RBC 3-5 H (0-2) /HPF Urine WBC 11-20 H (0-5) /HPF Ur Squamous Epith Cells 6-10 (0-2) /HPF Urine Bacteria None Seen (None Seen) Hyaline Casts 0-2 (0-2) /LPF Urine Opiates Screen POSITIVE H (Not Detect) Urine Fentanyl Screen POSITIVE H (Not Detect) Ur Barbiturates Screen Not Detected (Not Detect) Ur Phencyclidine Scrn Not Detected (Not Detect) Ur Amphetamines Screen Not Detected (Not Detect) U Benzodiazepines Scrn Not Detected (Not Detect) Urine Cocaine Screen Not Detected (Not Detect) U Marijuana (THC) Screen Not Detected (Not Detect) Ethyl Alcohol mg/dL COVID-19 (MARLYS) Negative (Negative) COVID-19 Clin Com See Note 06/15/22 06/15/22 Range/Units 13:43 13:43 WBC 14.2 H (4.8-10.8) X10*3/uL RBC 5.04 (4.20-5.50) X10*6/uL Hgb 13.8 (12.0-16.0) g/dl Hct 41.2 (37.0-47.0) % MCV 81.7 (80.0-98.0) fL MCH 27.4 (27.0-33.0) pg MCHC 33.5 (31.0-35.0) g/dl RDW 16.1 H (11.0-16.0) % Plt Count 420 H D (160-400) X10*3/uL MPV 11.1 (9.4-12.3) fL Immature Gran % (Auto) 0.4 (0.0-0.4) % Neut % (Auto) 83.4 H (45-73) % Lymph % (Auto) 12.1 L (20-40) % Bowie % (Auto) 3.6 (2-11) % Eos % (Auto) 0.1 (0-4) % Baso % (Auto) 0.4 (0-2) % Lymph # (Auto) 1.7 (1.2-4.9) X10*3/uL Bowie # (Auto) 0.5 (0.1-1.2) X10*3/uL Eos # (Auto) 0.0 (0.0-0.4) X10*3/uL Baso # (Auto) 0.1 (0.0-0.2) X10*3/uL Abs Immat Gran (auto) 0.05 H (0.00-0.03) X10*3/uL Absolute Neuts (auto) 11.9 H (2.0-8.3) x10*3/uL Absolute Nucleated RBC 0.000 (0.0-0.012) X10*3/uL Nucleated RBC % (auto) 0.0 (0.0-0.2) /100WBC Sodium 137 (135-145) mmol/L Potassium 4.2 (3.3-5.1) mmol/L Chloride 94 L (96-108) mmol/L Carbon Dioxide 27 (22-29) mmol/L Anion Gap 20 (12-20) BUN 20 H (9-16) mg/dL Creatinine 1.69 H (0.5-1.4) mg/dL Estim Creat Clear Calc 41.7 Estimated GFR 31 Random Glucose 299 H (60-115) mg/dL Calcium 9.9 (8.4-10.2) mg/dL Total Bilirubin 0.8 (0.0-1.0) mg/dL AST 15 (5-31) U/L ALT 15 (0-31) U/L Alkaline Phosphatase 119 H (39-117) U/L Total Protein 6.5 (6.5-8.0) g/dL Albumin 4.0 (3.5-5.0) g/dL Urine Color Urine Appearance Urine pH (5.0-9.0) Ur Specific Roosevelt (1.005-1.025) Urine Protein (Neg-Trace) mg/dL Urine Glucose (UA) (Negative) mg/dL Urine Ketones (Negative) mg/dL Urine Blood (Negative) Urine Nitrite (Negative) Ur Leukocyte Esterase (Negative) Urine RBC (0-2) /HPF Urine WBC (0-5) /HPF Ur Squamous Epith Cells (0-2) /HPF Urine Bacteria (None Seen) Hyaline Casts (0-2) /LPF Urine Opiates Screen (Not Detect) Urine Fentanyl Screen (Not Detect) Ur Barbiturates Screen (Not Detect) Ur Phencyclidine Scrn (Not Detect) Ur Amphetamines Screen (Not Detect) U Benzodiazepines Scrn (Not Detect) Urine Cocaine Screen (Not Detect) U Marijuana (THC) Screen (Not Detect) Ethyl Alcohol < 10 mg/dL COVID-19 (MARLYS) (Negative) COVID-19 Clin Com Independent Interpretation I performed an independent interpretation of an: EKG (Normal sinus rhythm heart rate 73, no acute ST elevations depressions, normal intervals) Tests considered The following testing was considered but not selected: Chest x-ray Prescription Management I considered prescription management with: Pain Medication Discharge Plan Discharge Clinical Impression: Opiate use, Atypical chest pain Patient Disposition: Still a Patient Prescriptions: No Action aspirin 81 mg Tablet,Delayed Release (Dr/Ec) 81 mg PO DAILY Qty: 30 0RF lorazepam 0.5 mg Tablet 0.5 mg PO DAILY metformin 1,000 mg tablet 1,000 mg PO BIDWM multivitamin Tablet 1 tab PO DAILY atorvastatin 20 mg tablet 20 mg PO DAILY Januvia 100 mg tablet 100 mg PO BEDTIME quetiapine 200 mg tablet 1 tab PO BEDTIME hydralazine 25 mg tablet 1 tab PO TID clonidine HCl 0.2 mg tablet 1 tab PO TID PRN (Reason: Anxiety) pregabalin 100 mg capsule 100 mg PO TID prazosin 1 mg capsule 1 mg PO BEDTIME Protocol: Hold for SBP< HOLD for SBP < : 90 clonazepam 0.5 mg tablet 1 tab PO DAILY PRN (Reason: panic attack) lisinopril 30 mg tablet 1 tab PO DAILY haloperidol 2 mg tablet 1 tab PO TID polyethylene glycol 3350 [Miralax] 17 gram/dose powder 17 g PO DAILY PRN (Reason: Constipation) nitrofurantoin monohyd/m-cryst [Macrobid] 100 mg capsule 100 mg PO BID Qty: 20 0RF Rx Instructions: must administer with a meal/food Interventions: [place]-Suicide Risk Severity Scale Last Done: 06/15/22 12:15
[2022-06-15 13:18] VITALS: BP 123/57; PULSE 67; RESP 16; O2SAT 98
[2022-06-15 13:30] LABS: Appearance Urine Cloudy; Color Urine Yellow; Glucose Urine UA >=1000 mg/dL (Negative); Leukocyte Esterase Urine Small (1+) (Negative); Nitrite Urine Negative (Negative); Specific Gravity - Urine 1.015 (1.005-1.025); UMIC TRIGGER UACC YES; Urine Blood Negative (Negative); Urine Ketones Negative (Negative); Urine Protein 30 (1+) mg/dL (Neg-Trace)
[2022-06-15 13:32] LABS: Bacteria Urine None Seen (None Seen); Hyaline Casts Urine 0-2 /LPF (0-2); UACC Culture Trigger YES
--- NOTE | 2022-06-15 13:35 | MHC.CARE ---
Pt is a 57 y/o single, Latvian speaking, female who is previously unknown to the CARE Team.? Today, pt presented to the ED requesting detox.? She reports using opioids for approximately a year.? On arrival, she appears to have ?passive suicidal ideation, no plan or intent.? ?Pt stated she has ?severe? sx, discussing the substance use as being problematic, with stress associated with her current living arrangement, and depression related to her break up? with her boyfriend, who is still in the home.? ? Pt is assessed for Risk in her room in the behavioral health pod of the ED.? She is alert and oriented x4, is dressed in hospital attire, appears older than her stated age and is disheveled in appearance.? Pt is engaged in the risk assessment, and is help seeking, requesting detox.? Pt stated that she was sober for a year, having ?Just quit? using substances.? Pt stated that she and her boyfriend had broken up and relapsed.? She has been actively using heroin for approximately a year now.? This relapse corresponds with pt?s break up.? Pt denies that this is a contributor to her relapse. Pt?s eye contact is unremarkable.? Her speech is slow and at times, soft.? Her affect is tearful, down, and sorrowful.? She reports that her break up was hard emotionally.? They remained in the same home for financial reasons but that had made the dissolving of the relationship more difficult.? She reports that her ex-boyfriend will be moving out soon, which places her in a challenging financial position, she is unsure if she can afford her home. Pt reports poor sleep and appetite. She describes her mood as ?sad? and ?Depressed?.? CARE Team discusses the origins of the passive SI with pt.? Pt stated that she has no thoughts of SI, HI, or self-harm.? She reports that she has unintentionally overdosed on a few occasions and ?eventually I?m going to end up (accidentally) killing myself if I don?t get off the street drugs.? Pt denies AVH and any hx of.? Her thought process in linear and organized and goal oriented.? Her insight, judgement and impulse control appear fair.? Plan is for pt to be referred to the Recovery team for Recovery supports.? Because pt denies any SI or self-harm urges she presents as a low risk for intentional self-harm.? Pt?s ongoing substance use does put her at risk for unintentional self-harm.? This plan was discussed with and agreed upon by CARE Copying Machine Mechanic Shirley MASON, ED Provider Dr. Ivy, and pt?s nurse MITZY Feliciano. CARE Team has contacted the Recovery Team and requested that they meet with pt.
[2022-06-15 13:38] LABS: Amphetamine Screen Urine Not Detected (Not Detect); Barbiturates, Urine Not Detected (Not Detect); Benzodiazepines Screen Urine Not Detected (Not Detect); Cannabinoid Screen Urine Not Detected (Not Detect); Cocaine Screen Urine Not Detected (Not Detect); Fentanyl, urine POSITIVE (Not Detect); Opiate Screen Urine POSITIVE (Not Detect); Phencyclidine Screen Urine Not Detected (Not Detect)
[2022-06-15 13:47] LABS: MANUAL DIFF FLAG NO
[2022-06-15 13:50] LABS: Basophils Absolute Auto 0.1 X10*3/uL (0.0-0.2); Basophils Percent Auto 0.4 % (0-2); Eosinophils Percent Auto 0.1 % (0-4); Hematocrit 41.2 % (37.0-47.0); Hemoglobin 13.8 g/dl (12.0-16.0); Imm Gran Abs Auto 0.05 X10*3/uL (0.00-0.03); Imm Gran Pct Auto 0.4 % (0.0-0.4); Lymphocytes Absolute Auto 1.7 X10*3/uL (1.2-4.9); Lymphocytes Percent Auto 12.1 % (20-40); Mean Corpuscular HGB Conc 33.5 g/dl (31.0-35.0); Mean Corpuscular Hemoglobin 27.4 pg (27.0-33.0); Mean Corpuscular Volume 81.7 fL (80.0-98.0); Mean Platelet Volume 11.1 fL (9.4-12.3); Monocytes Absolute Auto 0.5 X10*3/uL (0.1-1.2); Monocytes Percent Auto 3.6 % (2-11); Neutrophils Absolute Auto 11.9 x10*3/uL (2.0-8.3); Neutrophils Percent Auto 83.4 % (45-73); Platelet Count 420 X10*3/uL (160-400); Red Blood Count 5.04 X10*6/uL (4.20-5.50); Red Cell Distribution Width 16.1 % (11.0-16.0); White Blood Count 14.2 X10*3/uL (4.8-10.8)
[2022-06-15 14:08] LABS: Alanine Aminotransferase 15 U/L (0-31); Alkaline Phosphatase 119 U/L (39-117); Anion Gap 20 (12-20); Aspartate Amino Transferase 15 U/L (5-31); Bilirubin Total 0.8 mg/dL (0.0-1.0); Blood Urea Nitrogen 20 mg/dL (9-16); Calcium 9.9 mg/dL (8.4-10.2); Carbon Dioxide 27 mmol/L (22-29); Chloride 94 mmol/L (96-108); Creatinine Clr Calc Pharmacy 41.7; Estimated Glomerular Filt Rate 31; Ethanol < 10 mg/dL; Glucose Random 299 mg/dL (60-115); Potassium 4.2 mmol/L (3.3-5.1); Sodium 137 mmol/L (135-145); Total Protein 6.5 g/dL (6.5-8.0)
[2022-06-15 14:30] VITALS: BP 114/65; PULSE 68; RESP 16; TEMP 36.9; O2SAT 98
--- NOTE | 2022-06-15 14:33 | MHC.RECOVRN ---
Addendum entered by Palak Dean RN 06/15/22 14:57: Referral sent to [facility], no female beds currently at [facility]. Patient states wants to stay in [facility]. Original Note: This personal lines underwriter met w/ patient, patient alert, laying in bed, requesting detox. Patient reports heroin use for the past year, 5 bags IN daily. Patient reports no other substance use hx. Patient reports no treatment hx, no hx of MAT. Patient has overdosed on opiates many times, resulting in multiple hospitalizations. Patient states has no recovery supports currently. Patient requesting detox. Patient reports after treatment interested in Suboxone. T/W to begin detox bedsearch.
[2022-06-15] MEDS: Pregabalin 100 MG CAPSULE PO (14:34)
[2022-06-15] MEDS: hydrALAZINE HCl 25 MG TABLET PO (14:34)
[2022-06-15] MEDS: HaloperidoL 1 MG TABLET 2 MG PO (14:35)
[2022-06-15 14:46] VITALS: BP 141/63; PULSE 80; RESP 16; O2SAT 97
--- NOTE | 2022-06-15 15:17 | PC.NURSE ---
Pt. was ambulating in common area, when she tripped over the back side of the rocking chair. Patient has small bruise to forehead and an abrasion to her left elbow. Pt was able to ambulate independently post fall, denies any pain and vitals are all within normal limits. MD Dr. Ivy notified as well as charge nurse Lois FORRESTER. Will continue to monitor.
[2022-06-15] MEDS: metFORMIN HCl 1,000 MG TABLET 1000 MG PO (18:04)
[2022-06-15] MEDS: Calcium Carbonate 750 MG TAB.CHEW PO (18:04)
== END 2022-06-15 19:20 | disposition home or self-care (01) ==
PROVIDERS: Emergency Provider Emergency Medicine; PCP Nurse Practitioner Family
DX: R45.851 Suicidal ideations (principal); F11.19 Opioid abuse with unspecified opioid-induced disorder; R07.89 Other chest pain; Z20.822 Contact with and (suspected) exposure to COVID-19; Z20.828 Contact with and (suspected) exposure to other viral communicable diseases; Z79.899 Other long term (current) drug therapy
CPT/HCPCS: 36415; 80053; 80307; 81001; 82077; 85025; 87086; 87147; 87635; 93005; 99284; 99285